=== PATIENT | male | born 1945 | race Caucasian/White ===

== ENCOUNTER 2016-10-13 11:22 | Outpatient (CLI) | payer MEDICARE | END 2016-10-13 11:23 | disposition home or self-care (01) | DX: I51.7 Cardiomegaly (principal) ==

== ENCOUNTER 2017-03-05 08:00 | Outpatient (CLI) | payer MEDICARE ==
[2017-03-05 13:49] LABS: BASOPHILS # (AUTO) 0.1 10^3/uL (0.0-0.1); BASOPHILS % (AUTO) 0.7 %; EOSINOPHILS # (AUTO) 0.2 10^3/uL (0.0-0.7); EOSINOPHILS % (AUTO) 2.8 %; HCT - HEMATOCRIT 38.8 % (42.0-52.0); HGB - HEMOGLOBIN 12.6 g/dL (14.0-18.0); LYMPHOCYTES # (AUTO) 1.6 10^3/uL (1.5-3.5); LYMPHOCYTES % (AUTO) 19.3 %; MEAN CORPUSCULAR HEMOGLOBIN 28.8 pg (27.0-31.0); MEAN CORPUSCULAR HGB CONC 32.5 g/dL (32.0-36.0); MEAN CORPUSCULAR VOLUME 88.6 fL (80.0-94.0); MEAN PLATELET VOLUME 8.6 fL (7.4-11.4); MONOCYTES # (AUTO) 0.9 10^3/uL (0.0-1.0); MONOCYTES % (AUTO) 10.7 %; NEUTROPHILS # (AUTO) 5.3 10^3/uL (1.5-6.6); NEUTROPHILS % (AUTO) 66.5 %; RED BLOOD COUNT 4.39 10^6/uL (4.70-6.10); RED CELL DISTRIBUTION WIDTH 14.3 % (12.0-15.0)
[2017-03-05 14:31] LABS: BILIRUBIN,TOTAL 0.5 mg/dL (0.2-1.0); BUN - BLOOD UREA NITROGEN 15 mg/dL (6-20); CALCIUM 8.1 mg/dL (8.5-10.3); CARBON DIOXIDE - CO2 29 mmol/L (21-32); CHLORIDE 99 mmol/L (101-111); CHOL/HDL RATIO 3.4 (<5.0); CHOLESTEROL 161 mg/dL; CREATININE 1.3 mg/dL (0.6-1.2); GFR - MDRD 54 (>89); GLUCOSE 105 mg/dL (70-100); HDL CHOLESTEROL 48 mg/dL; POTASSIUM 3.7 mmol/L (3.5-5.0); SODIUM 137 mmol/L (135-145); TOTAL PROTEIN 7.7 g/dL (6.7-8.2); TRIGLYCERIDES 80 mg/dL; VLDL CHOLESTEROL 16 mg/dL
== END 2017-03-05 08:01 | disposition home or self-care (01) ==
LOC: LAB.N 08:00
PROVIDERS: ATTEND Family Medicine
DX: J44.9 Chronic obstructive pulmonary disease, unspecified (principal); E78.5 Hyperlipidemia, unspecified
CPT/HCPCS: 36415; 80053; 80061; 85025

== ENCOUNTER 2017-11-02 13:57 | Outpatient (CLI) | payer MEDICARE ==
[2017-11-02 12:46] LABS: BASOPHILS # (AUTO) 0.1 10^3/uL (0.0-0.1); BASOPHILS % (AUTO) 0.8 %; EOSINOPHILS # (AUTO) 0.2 10^3/uL (0.0-0.7); EOSINOPHILS % (AUTO) 2.1 %; HGB - HEMOGLOBIN 10.6 g/dL (14.0-18.0); LYMPHOCYTES # (AUTO) 2.2 10^3/uL (1.5-3.5); MEAN CORPUSCULAR HEMOGLOBIN 25.1 pg (27.0-31.0); MEAN CORPUSCULAR HGB CONC 31.4 g/dL (32.0-36.0); MEAN CORPUSCULAR VOLUME 79.9 fL (80.0-94.0); MEAN PLATELET VOLUME 7.9 fL (7.4-11.4); MONOCYTES # (AUTO) 0.8 10^3/uL (0.0-1.0); MONOCYTES % (AUTO) 9.5 %; NEUTROPHILS # (AUTO) 4.9 10^3/uL (1.5-6.6); NEUTROPHILS % (AUTO) 60.6 %; PLT - PLATELET COUNT 267 10^3/uL (130-450); RED BLOOD COUNT 4.21 10^6/uL (4.70-6.10); RED CELL DISTRIBUTION WIDTH 15.9 % (12.0-15.0); WHITE BLOOD COUNT 8.2 x10^3/uL (4.8-10.8)
[2017-11-02 13:35] LABS: ALBUMIN 3.6 g/dL (3.2-5.5); ALBUMIN/GLOBULIN RATIO 0.9 (1.0-2.2); ALKALINE PHOSPHATASE 79 IU/L (42-121); ALT ALANINE AMINOTRANSFERASE 15 IU/L (10-60); AST ASPARTATE AMINOTRANSFERASE 21 IU/L (10-42); BILIRUBIN,TOTAL 0.3 mg/dL (0.2-1.0); BUN - BLOOD UREA NITROGEN 20 mg/dL (6-20); CALCIUM 8.3 mg/dL (8.5-10.3); CARBON DIOXIDE - CO2 26 mmol/L (21-32); CHLORIDE 105 mmol/L (101-111); CHOL/HDL RATIO 3.7 (<5.0); CHOLESTEROL 146 mg/dL; CREATININE 1.4 mg/dL (0.6-1.2); GFR - MDRD 50 (>89); GLUCOSE 105 mg/dL (70-100); HDL CHOLESTEROL 39 mg/dL; LDL CHOLESTEROL,CALCULATED 84 mg/dL; LDL/HDL RATIO 2.2 (<3.6); SODIUM 138 mmol/L (135-145); TOTAL PROTEIN 7.5 g/dL (6.7-8.2); VLDL CHOLESTEROL 23 mg/dL
== END 2017-11-02 13:58 | disposition home or self-care (01) ==
LOC: LAB.N 13:57
PROVIDERS: ATTEND Family Medicine
DX: E78.5 Hyperlipidemia, unspecified (principal); I10 Essential (primary) hypertension
CPT/HCPCS: 36415; 80053; 80061; 83721; 85025

== ENCOUNTER 2017-11-04 14:30 | Outpatient (CLI) | payer MEDICARE ==
--- NOTE | 2017-11-05 10:47 | XRAY Report ---
THREE VIEW LEFT SHOULDER: 11/04/2017 CLINICAL INDICATION: Pain. FINDINGS: AP, oblique, scapular Y views of the left shoulder demonstrate mild osteoarthritis of the glenohumeral and acromioclavicular joints. An old, healed clavicle fracture is noted. No acute fracture or dislocation is seen. IMPRESSION: MILD OSTEOARTHRITIS. OLD, HEALED LEFT CLAVICLE FRACTURE. TD: 11/05/2017 10:46
== END 2017-11-04 14:31 | disposition home or self-care (01) ==
LOC: DI.N 14:30
PROVIDERS: ATTEND Family Medicine
DX: M19.012 Primary osteoarthritis, left shoulder (principal)

== ENCOUNTER 2017-11-11 08:00 | Outpatient (CLI) | payer MEDICARE ==
[2017-11-11 19:10] LABS: BASOPHILS # (AUTO) 0.1 10^3/uL (0.0-0.1); BASOPHILS % (AUTO) 0.7 %; EOSINOPHILS # (AUTO) 0.2 10^3/uL (0.0-0.7); EOSINOPHILS % (AUTO) 2.1 %; HGB - HEMOGLOBIN 10.4 g/dL (14.0-18.0); LYMPHOCYTES # (AUTO) 1.8 10^3/uL (1.5-3.5); LYMPHOCYTES % (AUTO) 20.9 %; MEAN CORPUSCULAR HEMOGLOBIN 24.5 pg (27.0-31.0); MEAN CORPUSCULAR HGB CONC 30.6 g/dL (32.0-36.0); MEAN CORPUSCULAR VOLUME 80.1 fL (80.0-94.0); MEAN PLATELET VOLUME 7.8 fL (7.4-11.4); MONOCYTES # (AUTO) 0.8 10^3/uL (0.0-1.0); NEUTROPHILS # (AUTO) 5.9 10^3/uL (1.5-6.6); NEUTROPHILS % (AUTO) 67.3 %; PLT - PLATELET COUNT 284 10^3/uL (130-450); RED BLOOD COUNT 4.25 10^6/uL (4.70-6.10); RED CELL DISTRIBUTION WIDTH 16.1 % (12.0-15.0); WHITE BLOOD COUNT 8.8 x10^3/uL (4.8-10.8)
[2017-11-11 19:27] LABS: ALBUMIN 3.5 g/dL (3.2-5.5); ALBUMIN/GLOBULIN RATIO 0.8 (1.0-2.2); BILIRUBIN,TOTAL 0.5 mg/dL (0.2-1.0); CALCIUM 8.5 mg/dL (8.5-10.3); CREATININE 1.4 mg/dL (0.6-1.2); TOTAL PROTEIN 7.7 g/dL (6.7-8.2)
== END 2017-11-11 08:01 | disposition home or self-care (01) ==
LOC: LAB.N 08:00
PROVIDERS: ATTEND Family Medicine
DX: R60.0 Localized edema (principal); J44.9 Chronic obstructive pulmonary disease, unspecified
CPT/HCPCS: 36415; 80053; 83880; 85025

== ENCOUNTER 2017-11-11 10:00 | Outpatient (CLI) | payer MEDICARE | END 2017-11-11 10:15 | disposition home or self-care (01) | LOC: RT.N 10:00 | PROVIDERS: ATTEND Family Medicine | DX: R60.0 Localized edema (principal); J44.9 Chronic obstructive pulmonary disease, unspecified | CPT/HCPCS: 93005 ==

== ENCOUNTER 2017-11-18 11:51 | Outpatient (CLI) | payer MEDICARE ==
--- NOTE | 2017-11-18 17:12 | XRAY Report ---
TWO VIEW CHEST: 11/18/2017 CLINICAL INDICATION: COPD. COMPARISON: 10/13/2016 FINDINGS: Frontal and lateral views of the chest demonstrate an enlarged cardiac silhouette. The lungs remain hyperinflated, with basilar fibrosis. No new infiltrate, effusion, or pneumothorax is appreciated. IMPRESSION: CARDIOMEGALY. HYPERINFLATION. NO EVIDENCE OF ACUTE CARDIOPULMONARY DISEASE. TD: 11/18/2017 17:11
== END 2017-11-18 11:52 | disposition home or self-care (01) ==
LOC: DI.N 11:51
PROVIDERS: ATTEND Family Medicine
DX: J44.9 Chronic obstructive pulmonary disease, unspecified (principal); R60.0 Localized edema; I51.7 Cardiomegaly
CPT/HCPCS: 71046

== ENCOUNTER 2017-11-18 18:33 | Outpatient (CLI) | payer MEDICARE ==
--- NOTE | 2017-11-18 22:18 | Ultrasound Report ---
EXAM: BILATERAL LOWER EXTREMITY VENOUS ULTRASOUND EXAM DATE: 11/18/2017 07:49 PM. CLINICAL HISTORY: DEPENDENT EDEMA LEGS, BILATERAL. COMPARISON: None. TECHNIQUE: Real-time sonographic vascular imaging was performed by the cordage sales representative through the lower extremities utilizing both color-flow and Doppler spectral analysis. Multiple healthcare representative static i mages were saved for review. FINDINGS: Right: Common Femoral Vein (CFV): Normal. CFV-GSV Junction: Normal. Profunda Femoral Vein (PFV): Normal. Femoral Vein (FV) Prox: Normal. Femoral Vein (FV) Mid: Not well seen, but grossly negative. Femoral Vein (FV) Dist: Not well seen, but grossly negative. Popliteal Vein: Not well seen, but grossly negative. Posterior Tibial Veins: Not well seen, but grossly negative. Peroneal Veins: Not seen. Left: Common Femoral Vein (CFV): Normal. CFV-GSV Junction: Normal. Profunda Femoral Vein (PFV): Normal. Femoral Vein (FV) Prox: Normal. Femoral Vein (FV) Mid: Not well seen, but grossly negative. Femoral Vein (FV) Dist: Not well seen, but grossly negative. Popliteal Vein: Not well seen, but grossly negative. Posterior Tibial Veins: Not well seen, but grossly negative. Peroneal Veins: Not seen. Other: Bilateral lower extremity superficial edema. IMPRESSION: Edema. No definite evidence of DVT at this time. [facility] Referring Provider Line: [phone] SITE ID: [id number]
== END 2017-11-18 18:34 | disposition home or self-care (01) ==
LOC: DI 18:33
PROVIDERS: ATTEND Family Medicine
DX: R60.0 Localized edema (principal); J44.9 Chronic obstructive pulmonary disease, unspecified; I51.7 Cardiomegaly
CPT/HCPCS: 71046; 93970

== ENCOUNTER 2018-05-19 08:00 | Outpatient (CLI) | payer MEDICARE ==
[2018-05-19 19:03] LABS: CALCIUM 8.4 mg/dL (8.5-10.3); CREATININE 1.3 mg/dL (0.6-1.2)
== END 2018-05-19 08:01 | disposition home or self-care (01) ==
LOC: LAB.N 08:00
PROVIDERS: ATTEND Family Medicine
DX: R60.0 Localized edema (principal)
CPT/HCPCS: 36415; 80048

== ENCOUNTER 2018-09-09 10:50 | Outpatient (CLI) | payer MEDICARE ==
[2018-09-09] MEDS ORDERED: PERFLUTREN LIPID MICROSPHERES 1.65 MG/1.5 ML VIAL IVP ONE (12:36)
== END 2018-09-09 10:51 | disposition home or self-care (01) ==
LOC: DI 10:50
PROVIDERS: ATTEND Family Medicine
DX: J44.9 Chronic obstructive pulmonary disease, unspecified (principal); R06.09 Other forms of dyspnea; I51.7 Cardiomegaly
CPT/HCPCS: C8929; Q9957; 93306

== ENCOUNTER 2018-09-10 12:43 | Outpatient (CLI) | payer MEDICARE ==
--- NOTE | 2018-09-12 16:46 | CT Report ---
Reason: DYSPNEA ON EXERTION,COPD Procedure Date: 09/10/2018 Accession Number: [id number] / [id number] Procedure: CT - Chest W/O CPT Code: FULL RESULT: EXAM: CT CHEST EXAM DATE: 09/10/2018 01:08 PM. CLINICAL HISTORY: DYSPNEA ON EXERTION,COPD. COMPARISONS: 08/15/2013 CT TECHNIQUE: Routine helical CT imaging was performed through the chest. IV contrast: None. Reconstructions: Coronal and sagittal. In accordance with CT protocol optimization, one or more of the following dose reduction techniques were utilized for this exam: automated exposure control, adjustment of mA and/or KV based on patient size, or use of iterative reconstructive technique. FINDINGS: Lungs/Pleura: Minor emphysematous changes as before. Bibasilar scar/atelectasis again noted. No nodules, bronchial thickening, consolidation, or edema. Pulmonary vasculature is normal. No pericardial effusion. No pneumothorax. Minimal posterior basilar pleural thickening. Mediastinum: Enlarged right lobe of the thyroid measures at least 7.3 cm in maximum axial dimension; deviates trachea to the left.. No adenopathy or masses. Mild cardiomegaly Bones: Degenerative change in the spine. Visualized Abdomen: Included portions of the upper abdomen are unremarkable. Anterior abdominal wall hernia not excluded. Other: None. IMPRESSION: No acute findings chest CT. Chronic changes including bibasilar atelectasis/scar, posterior pleural thickening, and minor emphysematous changes as before. Enlarged right lobe of the thyroid with tracheal deviation to the left stable or minimally increased. [facility]
== END 2018-09-10 12:44 | disposition home or self-care (01) ==
LOC: DI 12:43
PROVIDERS: ATTEND Family Medicine
DX: J44.9 Chronic obstructive pulmonary disease, unspecified (principal)
CPT/HCPCS: 71250

== ENCOUNTER 2018-11-09 12:48 | Outpatient (CLI) | payer MEDICARE | END 2018-11-09 12:49 | disposition home or self-care (01) | LOC: SC 12:48 | PROVIDERS: ATTEND Nurse Practitioner Family | DX: G47.33 Obstructive sleep apnea (adult) (pediatric) (principal) | CPT/HCPCS: 99215; G0463; 99212 ==

== ENCOUNTER 2018-11-11 12:42 | Outpatient (CLI) | payer MEDICARE ==
[~2018-11-11 12:42] MED LIST: ALBUTEROL NEB 2.5 MG/3 ML INH ONE
[2018-11-11] MEDS ORDERED: ALBUTEROL NEB 2.5 MG/3 ML INH ONE (13:00)
== END 2018-11-11 12:43 | disposition home or self-care (01) ==
LOC: RT 12:42
PROVIDERS: ATTEND Family Medicine
DX: J44.9 Chronic obstructive pulmonary disease, unspecified (principal)
CPT/HCPCS: 94060; 94729

== ENCOUNTER 2019-04-20 09:47 | Outpatient (CLI) | payer MEDICARE ==
[2019-04-20 13:58] LABS: CREATININE 1.9 mg/dL (0.6-1.2)
== END 2019-04-20 23:59 ==
LOC: LAB.N 09:47
PROVIDERS: ATTEND Internal Medicine
DX: I50.812 Chronic right heart failure (principal)
CPT/HCPCS: 36415; 80048; 83880

== ENCOUNTER 2019-04-22 13:17 | Outpatient (CLI) | payer MEDICARE | END 2019-04-22 13:18 | disposition critical access hospital (66) | LOC: EMS 13:17 | PROVIDERS: ATTEND Surgery | DX: R06.02 Shortness of breath (principal) | CPT/HCPCS: A0425; A0427 ==

== ENCOUNTER 2019-04-22 13:34 | Inpatient (IN) | payer MEDICARE ==
--- NOTE | 2019-04-22 13:44 | ED Physician Documentation ---
PD HPI DYSPNEA - Stated complaint Stated Complaint: SOA - History obtained from History obtained from: Patient, Family (), EMS - History of Present Illness Timing - onset: Other (74-year-old gentleman with COPD. He says he has had no heart problems but his last history and physical mentions a history of atrial fibrillation, NH and stents. He has been having a decline over the last couple of months with increased shortness of breath and orthopnea which was acutely worse today. His usual oxygen at home is 2 L and he is been increasing it lately. He feels weak and short of breath and but can barely move because of it. Received a DuoNeb in route with some improvement. He was noted to be hypotensive for paramedics, 80 over palp. His says his legs are not any more swollen than normal.) Review of Systems Ten Systems: 10 systems reviewed and negative Constitutional: reports: Fatigue. denies: Fever, Chills Cardiac: denies: Chest pain / pressure, Palpitations, Pedal edema, Calf pain Respiratory: reports: Dyspnea, Cough PD PAST MEDICAL HISTORY - Past Medical History Cardiovascular: Hypertension, Atrial fibrillation Respiratory: COPD Endocrine/Autoimmune: None GI: None : None HEENT: None Psych: None Musculoskeletal: Osteoarthritis Derm: None - Past Surgical History Past Surgical History: Yes General: Appendectomy Ortho: Knee replacement HEENT: Cataracts, Tonsil/Adenoidectomy - Present Medications Home Medications: Ambulatory Orders Medication Instructions Recorded Confirmed Albuterol [Ventolin Hfa] 2 puffs INH Q4H PRN 03/06/13 12/05/15 Hydrocodone/Acetaminophen [Vicodin 1 each PO Q6HR PRN 03/06/13 12/05/15 Hp 10-300 mg Tablet] Losartan [Cozaar] 50 mg PO DAILY 03/06/13 12/05/15 Omeprazole 40 mg PO DAILY 03/06/13 12/05/15 Pravastatin Sodium 40 mg PO HS 03/06/13 12/05/15 Zolpidem [Ambien] 10 mg PO HS 03/06/13 12/05/15 Ipratropium Valders 0.02 inhaler NEB QID 05/12/13 12/05/15 Aspirin [Aspir-Shannen] 325 mg PO DAILY 01/17/14 12/05/15 Fluticasone/Salmeterol 250/50 1 mcg INH BID 01/17/14 12/05/15 [Advair 250 Mcg/50 Mcg] Ferrous Gluconate 324 mg DAILY 01/18/14 12/05/15 diltiaZEM CD [Cardizem Cd] 240 mg DAILY 01/18/14 12/05/15 - Allergies Allergies/Adverse Reactions: Allergies Allergy/AdvReac Type Severity Reaction Status Date / Time ranitidine HCl * Allergy Unknown Rash Verified 04/22/19 13:45 [From Zantac] - Social History Does the pt smoke?: No Smoking Status: Former smoker Does the pt drink ETOH?: No Does the pt have substance abuse?: No - Immunizations Immunizations are current?: Yes - POLST Patient has POLST: No PD ED PE NORMAL - Vitals Vital signs reviewed: Yes - General General: Alert and oriented X 3, Other (He appears breathless, despite being on oxygen his saturations dropped to the low 80s just from moving from the EMS gurney to the bed.) - HEENT HEENT: PERRL, EOMI - Neck Neck: Supple, no meningeal sign, No bony TTP - Cardiac Cardiac: RRR, No murmur - Respiratory Respiratory: Other (Labored breathing, diminished, but grossly clear, somewhat limited by body habitus.) - Abdomen Abdomen: Non tender - Rectal Rectal: Other (brown guaiac neg stool) - Derm Derm: Other (Diffuse ichthyosis) - Extremities Extremities: Other (Venous stasis changes and mild pedal edema, symmetric) - Neuro Neuro: Alert and oriented X 3, Normal speech Results - Vitals Vitals: Vital Signs - 24 hr 04/22/19 04/22/19 04/22/19 13:43 14:00 14:15 Temperature 36.4 C L 36.5 C Heart Rate 104 H 83 83 Respiratory 28 H 22 Rate Blood Pressure 124/86 H O2 Saturation 100 100 04/22/19 04/22/19 04/22/19 14:30 14:37 14:57 Temperature Heart Rate 82 84 Respiratory 20 Rate Blood Pressure 121/39 L 114/45 L O2 Saturation 93 04/22/19 04/22/19 04/22/19 15:00 15:03 15:33 Temperature Heart Rate 84 80 Respiratory 22 Rate Blood Pressure 114/45 L 132/69 H O2 Saturation 100 04/22/19 16:05 Temperature Heart Rate 88 Respiratory 16 Rate Blood Pressure 157/71 H O2 Saturation 100 Oxygen O2 Source Nasal cannula Oxygen Flow Rate 2 - EKG (time done) 1427 Rate: Rate (enter#) (80) Rhythm: NSR Birney: Normal Intervals: Other (IVCD) QRS: Normal Ischemia: Non specific changes (Trace lateral ST depression). No: ST elevation c/w ischemia Computer interpretation: Agree with computer - Labs Labs: Laboratory Tests 04/22/19 04/22/19 04/22/19 13:50 13:50 13:50 WBC RBC Hgb Hct MCV MCH MCHC RDW Plt Count MPV Neut # (Auto) Lymph # (Auto) [place] # (Auto) Eos # (Auto) Baso # (Auto) Absolute Nucleated RBC Nucleated RBC % Manual Slide Review Platelet Estimate Platelet Morphology RBC Morph Micro Appear VBG pH VBG pCO2 VBG pO2 VBG HCO3 VBG Total CO2 VBG O2 Saturation VBG Base Excess Sodium 139 Potassium 3.3 L Chloride 99 L Carbon Dioxide 28 Anion Gap 12.0 BUN 34 H Creatinine 1.9 H Estimated GFR (MDRD) 35 L Glucose 188 H Lactic Acid Calcium 7.9 L Magnesium 2.3 Total Bilirubin 0.4 AST 19 ALT 13 Alkaline Phosphatase 90 Troponin I High Sens < 2.3 L B-Natriuretic Peptide 222 H Total Protein 7.4 Albumin 3.4 Globulin 4.0 Albumin/Globulin Ratio 0.9 L Lipase 25 04/22/19 04/22/19 04/22/19 13:50 13:50 15:10 WBC 9.3 RBC 1.64 L Hgb 2.7 L* Hct 11.6 L* MCV 70.7 L MCH 16.5 L MCHC 23.3 L RDW 25.9 H Plt Count 50 L MPV 8.9 Neut # (Auto) 7.9 H Lymph # (Auto) 0.9 L [place] # (Auto) 0.3 Eos # (Auto) 0.2 Baso # (Auto) 0.0 Absolute Nucleated RBC 0.00 Nucleated RBC % 0.0 Manual Slide Review Indicated Platelet Estimate DECREASED (<130,000) Platelet Morphology NORMAL APPEARANCE RBC Morph Micro Appear 2+ MICROCYTOSIS VBG pH 7.382 VBG pCO2 47.0 VBG pO2 82.9 H VBG HCO3 27.3 VBG Total CO2 28.7 VBG O2 Saturation 95.5 H VBG Base Excess 2.2 H Sodium Potassium Chloride Carbon Dioxide Anion Gap BUN Creatinine Estimated GFR (MDRD) Glucose Lactic Acid 3.8 H* Calcium Magnesium Total Bilirubin AST ALT Alkaline Phosphatase Troponin I High Sens B-Natriuretic Peptide Total Protein Albumin Globulin Albumin/Globulin Ratio Lipase PD MEDICAL DECISION MAKING - ED course ED course: 74-year-old gentleman presents with severe shortness of breath. He has underlying COPD but his lungs are relatively clear. He looks very labored when he moves at all. PE is considered given some soft blood pressures, however grossly to me his PET scan was negative and this is likely due to his severe profound anemia. Note that he is guaiac negative. Underlying MALIGNANCY is considered. Spoke with Dr. Grimes for admission at 4:51 PM. Departure - Departure Disposition: 66 [facility] DC/Xfpablito Clinical Impression: Dyspnea Qualifiers: Dyspnea type: shortness of breath Qualified Code(s): R06.02 - Shortness of breath Anemia Qualifiers: Anemia type: unspecified type Qualified Code(s): D64.9 - Anemia, unspecified Condition: Serious
[2019-04-22 14:11] LABS: VBG BASE EXCESS 2.2 mmol/L (-2 - +2); VBG PH 7.382 (7.31-7.41); VBG PO2 82.9 mmHg (25-47); VBG TOTAL CO2 28.7 mmol/L (24-29)
[2019-04-22] MEDS ORDERED: IOVERSOL 320 100 ML VIAL IVP ONE ×2 (14:15→16:08)
[2019-04-22 14:24] LABS: ALBUMIN 3.4 g/dL (3.2-5.5); ALBUMIN/GLOBULIN RATIO 0.9 (1.0-2.2); BILIRUBIN,TOTAL 0.4 mg/dL (0.2-1.0); CALCIUM 7.9 mg/dL (8.5-10.3); CREATININE 1.9 mg/dL (0.6-1.2); MAGNESIUM 2.3 mg/dL (1.7-2.8); TOTAL PROTEIN 7.4 g/dL (6.7-8.2)
[2019-04-22] MEDS ORDERED: SODIUM CHLORIDE 0.9% 500 ML IV ONE ×2 (14:27→14:49)
--- NOTE | 2019-04-22 14:36 | XRAY Report ---
Reason: dyspnea Procedure Date: 04/22/2019 Accession Number: [id number] / [id number] Procedure: XR - Chest 1 View X-Ray CPT Code: 92672 FULL RESULT: EXAM: CHEST RADIOGRAPHY EXAM DATE: 04/22/2019 02:16 PM. CLINICAL HISTORY: Dyspnea. COMPARISON: CHEST 2 VIEW 11/18/2017 12:09 PM. TECHNIQUE: 1 view. FINDINGS: Lungs/Pleura: Mild chronic appearing pulmonary edema and trace bilateral pleural effusions. No focal opacities evident. No pneumothorax. Mediastinum: Within exam limitations, the cardiomediastinal contour is normal. Other: None. IMPRESSION: Mild chronic appearing pulmonary edema and trace bilateral pleural effusions. Stable moderate cardiac enlargement. [facility]
[2019-04-22 15:19] LABS: BASOPHILS % (AUTO) 0.1 %; EOSINOPHILS # (AUTO) 0.2 10^3/uL (0.0-0.7); LYMPHOCYTES # (AUTO) 0.9 10^3/uL (1.5-3.5); MEAN CORPUSCULAR HEMOGLOBIN 16.5 pg (27.0-31.0); MEAN CORPUSCULAR HGB CONC 23.3 g/dL (32.0-36.0); MEAN CORPUSCULAR VOLUME 70.7 fL (80.0-94.0); MEAN PLATELET VOLUME 8.9 fL (7.4-11.4); MONOCYTES # (AUTO) 0.3 10^3/uL (0.0-1.0); NEUTROPHILS # (AUTO) 7.9 10^3/uL (1.5-6.6); NEUTROPHILS % (AUTO) 84.3 %; PLT - PLATELET COUNT 50 10^3/uL (130-450); RED BLOOD COUNT 1.64 10^6/uL (4.70-6.10); RED CELL DISTRIBUTION WIDTH 25.9 % (12.0-15.0); WHITE BLOOD COUNT 9.3 x10^3/uL (4.8-10.8)
[2019-04-22 15:21] LABS: HGB - HEMOGLOBIN 2.7 g/dL (14.0-18.0)
[2019-04-22 16:02] LABS: PLATELET ESTIMATE, MANUAL DECREASED (<130,000) (NORMAL); PLATELET MORPHOLOGY NORMAL APPEARANCE (NORMAL)
[2019-04-22] MEDS ORDERED: ACETAMINOPHEN 325 MG TABLET PO PRN (17:04)
[2019-04-22] MEDS ORDERED: POTASSIUM CHLORIDE 20 MEQ TABLET PO ONE (17:13)
--- NOTE | 2019-04-22 17:19 | CT Report ---
Reason: dyspnea Procedure Date: 04/22/2019 Accession Number: [id number] / [id number] Procedure: CT - ANGIO CHEST W/WO CPT Code: FULL RESULT: EXAM: CT ANGIOGRAM CHEST EXAM DATE: 04/22/2019 04:08 PM. CLINICAL HISTORY: Dyspnea. COMPARISON: CHEST W/O 09/10/2018 12:59 PM CHEST 1 VIEW 04/22/2019 1:58 PM CHEST ANGIO 08/15/2013 4:35 PM. TECHNIQUE: Routine helical imaging was performed through the chest in the pulmonary arterial phase. IV Contrast: OPTI 320 80ML. Reconstructions: Coronal 3-D MIP reconstructions.Sagittal and coronal. In accordance with CT protocol optimization, one or more of the following dose reduction techniques were utilized for this exam: automated exposure control, adjustment of mA and/or KV based on patient size, or use of iterative reconstructive technique. FINDINGS: Respiratory motion artifact moderately degrades images. Pulmonary Arteries: Diagnostic quality: Suboptimal through the segmental arteries due to contrast bolus timing. No definite evidence for acute or chronic pulmonary emboli through the segmental arteries. Lungs/Pleura: Mild centrilobular emphysema. Scattered bilateral air trapping and mild atelectasis. Moderate subsegmental atelectasis in bilateral lower lobes. Trace right pleural effusion. No pneumothorax.. Mediastinum: Mediastinal lipomatosis. Normal heart size. No pericardial effusion. Three-vessel coronary artery atherosclerosis. Thoracic Aorta: Mild atherosclerosis without aneurysm. Upper Abdomen: Mild atrophy of bilateral kidneys. Other: Right thyroid lobe mass measuring up to 70 x 41 mm, previously 58 x 39 mm on 08/15/2013. Stable associated leftward tracheal deviation. Mild bilateral gynecomastia. Mild dextrocurvature of the thoracic spine. Thoracic spine diffuse idiopathic skeletal hyperostosis. Healed anterior left fifth rib fracture. IMPRESSION: 1. No pulmonary embolus through the segmental pulmonary arteries allowing for suboptimal contrast bolus timing. 2. Moderate bilateral atelectasis. Trace right pleural effusion. Mild emphysema. 3. 7 cm right thyroid lobe mass, increased since 2012. Recommend further evaluation with nonemergent thyroid ultrasound. [facility]
--- NOTE | 2019-04-22 17:55 | HISTORY & PHYSICAL EXAMINATION ---
Chief Complaint - Chief Complaint Chief Complaint: Shortness of breath History of Present Illness - Admitted From Admitted From:: Home - History Obtained From Records Reviewed: Yes History obtained from: Patient, Family, ER Physician - History of Present Illness HPI Comment/Other: This is a 74 year old male with a past medical history significant for paroxysmal atrial fibrillation, hypertension, COPD (on 2.5L), CKD, and OMERO on CPAP who presents from home complaining of worsening shortness of breath over the past 2-3 weeks. He reports feeling short of breath over the last few weeks that has progressed daily and today he seeked medical attention. He does not report a cough but endorses subjective fevers and chills. He denies chest pain but reports fatigue, weakness, tremors that have all began over the last few days. He has also had poor appetite and believes that he may have lost some weight but he has difficulty checking his weight as he is unable to stand on a scale for a long enough of a time to obtain a weight. He reports that about 5-6 years he did have an episode where his hemoglobin low in the 4-5 range and he required multiple transfusions. He was told he was anemic at that time because of kidney failure. He did have a period of time where he had significant acute kidney injury and required hemodialysis for 6 weeks. He reports no recent bleeding. Denies tarry stools, hematuria, hemoptysis. He denies any new medications recently except for a diuretic. He had a colonoscopy and EGD about 6 years ago. Colonoscopy had one hyperplastic polyp and EGD was unremarkable. In the emergency department, he was hemoynaically stable with a blood pressure in the 120's-130's systolic, and heart rate in the 80's. He was saturating 100% on 2L NC. Labs were significant for a hemoglobin of 2.7, platelets of 50, creatinine of 1.9, and lactic of 3.8. Chest x-ray with mild vascular congestion. CTA of the chest was negative for PE although it was a not a great study due to suboptimal contrast timing. EKG showed sinus rhythm without ischemic changes. Troponin was negative. He will be admitted to the ICU for further management. I did speak with the patient and family regarding goals of care. He would like to be a full code at this time. History - Past Medical History Cardiovascular: reports: Hypertension, Atrial fibrillation Respiratory: reports: COPD, Sleep apnea, CPAP use Endocrine/Autoimmune: reports: None GI: reports: None : reports: Renal insuffiency HEENT: reports: None Psych: reports: None Musculoskeletal: reports: Osteoarthritis Derm: reports: None MRSA Hx?: No - Past Surgical History General: reports: Appendectomy Ortho: reports: Knee replacement HEENT: reports: Cataracts, Tonsil/Adenoidectomy - Family & Social History Family History Comment/Other: He reports no signifcant medical history. Denies a family history of bleeding or cancer. Living arrangement: At home Living Situation: With spouse/s.o. Social History Notes: He lives on [facility] with his . He previously lived in [place] but moved to [facility] to be closer to his son. He is retired now but worked with [employer] in the past. He was a previous smoker but quit multiple years ago. - Substance History Use: Uses substance without health or social issues: NONE - POLST Patient has POLST: No POLST Status: Full Code Meds/Allgy - Home Medications Home Medications: Ambulatory Orders Medication Instructions Recorded Confirmed Omeprazole 40 mg PO DAILY 03/06/13 04/22/19 Aspirin [Aspir-Shannen] 325 mg PO DAILY 01/17/14 04/22/19 Atorvastatin Calcium 40 mg PO QPM 04/22/19 04/22/19 Diltiazem HCl [Diltiazem ER] 180 mg PO DAILY 04/22/19 04/22/19 Fluticasone Propion/Salmeterol 1 each IH BID 04/22/19 04/22/19 [Fluticasone-Salmeterol 500-50] Gabapentin [Neurontin] 100 mg PO QPM 04/22/19 04/22/19 HYDROcod/ACETAM 5/325 [[place] 5/325] 1 - 2 ea PO Q4H PRN 04/22/19 04/22/19 Ipratropium/Albuterol [Duoneb] 3 ml INH Q6H 04/22/19 04/22/19 Losartan/Hydrochlorothiazide 1 each PO DAILY 04/22/19 04/22/19 [Losartan-Hctz 50-12.5 mg Tab] - Allergies Allergies/Adverse Reactions: Allergies Allergy/AdvReac Type Severity Reaction Status Date / Time ranitidine HCl * Allergy Unknown Rash Verified 04/22/19 13:45 [From Zantac] Review of Systems - Constitutional Constitutional: reports: Fatigue, Fever, Chills, Weakness, Poor appetite, Night sweats, Weight loss - Ears, Nose & Throat Ears, Nose & Throat: denies: Nosebleeds - Cardiovascular Cariovascular: reports: Edema, Exertional dyspnea, Decr. exercise tolerance. denies: Chest pain - Respiratory Respiratory: reports: SOB at rest, SOB with exertion. denies: Hemoptysis - Gastrointestinal Gastrointestinal: reports: Constipation, Poor appetite. denies: Abdominal pain, Diarrhea, Black stools, Bloody stools, Nausea, Vomiting - Genitourinary Genitourinary: denies: Hematuria - Musculoskeletal Musculoskeletal: reports: Muscle weakness - Integumentary Integumentary: denies: Rash - Neurological Neurological: reports: General weakness, Numbness. denies: Focal weakness - Hematologic/Lymphatic Hematologic/Lymphatic: denies: Anemia, Bruising, Bleeding tendencies - All Other Systems All Other Systems: reports: Reviewed and negative Prior Level of Functionality: He ambulates with a scooter at baseline. Exam - Vital Signs Reviewed Vital Signs: Yes Vital Signs: Vital Signs x48h Temp Pulse Resp BP Pulse Ox 04/22/19 16:30 90 20 157/71 H 100 04/22/19 16:05 88 16 157/71 H 100 04/22/19 15:33 80 04/22/19 15:03 132/69 H 04/22/19 15:00 84 22 114/45 L 100 04/22/19 14:57 84 04/22/19 14:37 114/45 L 04/22/19 14:30 82 20 121/39 L 93 04/22/19 14:15 36.5 C 83 22 100 04/22/19 14:00 83 04/22/19 13:43 36.4 C L 104 H 28 H 124/86 H 100 - Physical Exam General Appearance: positive: Alert, Mild distress Eyes Bilateral: positive: No scleral icterus, Other (Conjuctival pallor) ENT: positive: ENT inspection nml, No signs of dehydration, Other (Nasal cannula in place.). negative: Pharyngeal erythema, Dry mucous membranes Neck: positive: Nml inspection Respiratory: positive: No respiratory distress, Other (Diminished breath sounds bilaterally. Tachypnic.) Cardiovascular: positive: Regular rate & rhythm, No murmur. negative: Tachycardia, Bradycardia, Systolic murmur Abdomen: positive: Non-tender, Other (Distended). negative: No distention, Tenderness, Guarding, Rebound Skin: positive: No rash, Warm, Dry, Pallor, Other (Chronic skin changes of the lower extremities.) Extremities: positive: Pedal edema (+1 pitting edema in bilateral low extremities up to the knee.) Neurologic/Psychiatric: positive: Oriented x3 Conclusion/Plan - Problem List (1) Anemia Conclusion/Plan: He has significant anemia of unclear etiology at this time. Presented with a hemoglobin of 2.7 and given his hemodynamic stability, MCV of 70 this appears to be chronic in nature. He also has associated thrombocytopenia but no leukopenia. This is concerning for a possible bone marrow failure or underlying malignancy. No signs of active bleeding at this time. Stool occult reportedly negative in the ER. LFT's are normal so low suspicion for hemolysis. - Type and screen. Will transfuse three units PRBC and check another CBC before further transfusions. - Check iron studies, LDH and retic count prior to transfusion - Recheck fecal occult stool, if positive will require Gen Surg consult for EGD/Colonoscopy - Will likely need outpatient hematology follow up Qualifiers: Anemia type: unspecified type Qualified Code(s): D64.9 - Anemia, unspecified (2) Thrombocytopenia Conclusion/Plan: He has thrombocytopenia with a platelet count of 50. Suspect that the etiology is bone marrow failure or underlying malignancy. No signs of bleeding at this time. - Hold chemical DVT prophylaxis - No indication for transfusion at this time unless he develops significant clinical bleeding - Will likely require outpatient Hematology follow up (3) Acute kidney injury superimposed on CKD Conclusion/Plan: He has history of CKD. Labs from last year reveal a baseline of about 1.4. Current creatinine is 1.9 which may be progression of his CKD or mild acute kidney injury secondary to his severe anemia. He has a remote history of acute kidney injury requiring hemodialysis for 6 weeks but this was multiple years ago. - Hold home Losartan in setting of MALGORZATA - Renal function should improve with transfusion of RBC's if this is acute kidney - Monitor renal function and urine output (4) Lactic acidosis Conclusion/Plan: His lactic is elevated at 3.8 this is likely secondary to his severe anemia. - This should improve with transfusion of RBC's - Recheck every 4 hours until normalization (5) Chronic respiratory failure with hypoxia Conclusion/Plan: He has chronic respiratory failure secondary to COPD. He is on 2L oxygen at baseline. Stable. - Continue supplemental oxygen - Monitor respiratory status as he receives transfusions as he may require intermittent diuresis (6) Paroxysmal atrial fibrillation Conclusion/Plan: He paroxysmal atrial fibrillation and is on cardizem and aspirin at home. Currently in a sinus rhythm. EKG without ischemic changes and troponin is negative. - Hold Cardizem given his blood pressure is stable at this time - Hold Aspirin due to thrombocytopenia - Monitor on telemetry (7) Hypertension Conclusion/Plan: He is on Losartan/HCTZ and Cardizem at home. Controlled at this time. - Will hold home antihypertensives at this time given his anemia and risk for potentially bleeding and hemodynamic decompensation - Will likely restart in the AM - Lab Results Lab results reviewed: Yes Nestor Bones: 04/22/19 15:10 04/22/19 13:50 - Diagnostic Imaging Results Diagnostic Imaging Results: positive: Final report reviewed - EKG Results EKG Interpreted Independently: Yes EKG Findings: Sinus rhythm without ischemic changes. Core Measures - Anticipated LOS I expect patient to be DC'd or transferred within 96 hours.: Yes - Issues Hospital Issues and Management Plan: Anemia requiring multiple blood transfusions. - DVT/VTE - Prophylaxis VTE/DVT Device ordered at admit?: Yes VTE/DVT Prophylaxis med ordered at admit?: No Not Ordered - Medical Reason: Contraindicated (Thrombocytopenia)
[2019-04-22 18:09] LABS: INR 1.2 (0.8-1.2)
[2019-04-22 18:59] LABS: % IRON SATURATION 4 % (20-50); IRON 22 ug/dL (45-182); TOTAL IRON BINDING CAPACITY 529 ug/dL (250-450); TRANSFERRIN 378 mg/dL (180-329)
[2019-04-22 20:16] LABS: ABSOLUTE RETICS # AUTO 0.051 10^6/uL (0.020-0.110); RED BLOOD COUNT 1.68 10^6/uL (4.70-6.10)
[2019-04-22] MEDS ORDERED: LEVALBUTEROL 1.25 MG/3 ML NEB INH PRN (20:24)
[2019-04-22] MEDS: PANTOPRAZOLE 40 MG VIAL IVP SCH (20:24)
[2019-04-22] MEDS: SODIUM CHLORIDE FLUSH 0.9% 10 ML SYRINGE IVP SCH (20:24)
[2019-04-22 21:19] LABS: BILIRUBIN,URINE NEGATIVE (NEGATIVE); GLUCOSE, URINE (UA) NEGATIVE (NEGATIVE); KETONES,URINE (UA) NEGATIVE (NEGATIVE); LEUKOCYTE ESTERASE, URINE NEGATIVE (NEGATIVE); NITRITE,URINE NEGATIVE (NEGATIVE); OCCULT BLOOD,URINE NEGATIVE (NEGATIVE); PROTEIN,URINE NEGATIVE (NEGATIVE); UROBILINOGEN,URINE 0.2 (NORMAL) E.U./dL (NORMAL)
[2019-04-22 21:20] LABS: CLARITY,URINE CLEAR (CLEAR)
[2019-04-22] MEDS ORDERED: BUDESONIDE 0.5 MG/2 ML NEB INH STA (22:09)
--- NOTE | 2019-04-22 22:26 | ANESTHESIA PROCEDURE NOTE ---
Diagnosis: Severe anemia, poor vascular access Procedure: Placement of femoral vein line Consent for Procedure(s) Verified and Reviewed: Yes Height and Weight: Height 5 ft 7 in Weight (kg) 161.025 kg Body Mass Index 55.5 Vital Signs: Temp Pulse Resp BP Pulse Ox 36.5 C 99 22 125/99 H 96 04/22/19 22:00 04/22/19 22:00 04/22/19 22:00 04/22/19 22:00 04/22/19 22:00 Allergies ranitidine HCl * [From Zantac] Allergy (Unknown, Verified 04/22/19 13:45) Rash Requesting Provider: Kenney Location: ICU [address]. Monitoring and Equipment: Non-invasive BP, Pulse oximetery, Central venous catheter, All ports aspirate blood, Sterile prep and drape Anes. Procedure Start Time: 18:00 Anes. Procedure Stop Time: 20:05 Procedure Notes: Consulted to obtain venous access on a patient with history of poor vascular access and severe anemia/thrombocytopenia. First attempted placing basilic vein IV catheter using ultrasound on both upper extremities. The veins were small and deep and I was unable to access either veins. After speaking with the hospitalist, it was decided the best option was to place a femoral vein catheter. Initially, the right side was attempted and the vein was accessed, however, I was unable to advance the catheter. The wire was removed and pressure held until hemostasis obtained. The patient's left groin was prepped with chloroprep and draped in a sterile fashion. Time-out completed. Sterile gown, gloves, hat and mask were utilized. A total of 5ml of 1% lidocaine was used to anesthetize the skin area. The common femoral vein was imaged using ultrasound and a modified seldinger technique was used to access the vein under ultrasound guidance. A 20cm triple lumen catheter was inserted over the wire with ease and sutured in place with zero cm exposed. All ports aspirated heme and flushed with ease. All wires removed and accounted for. A sterile dressing with biopatch was applied. Patient tolerated the procedure well. Anesth Central Line Template - Central Line Central Line Preparation: Consent Obtained, Time out completed, Ultrasound used, Sterile prep and drape Central line location: Left Femoral Central line type: Triple lumen Central line catheter tip site resides: Unspecified lower vein access Central line aftercare: Chlorhexidine disc placed, Secured, No complications, Pt tolerated well
[2019-04-23] MEDS: GABAPENTIN 100 MG CAPSULE PO SCH ×2 (00:07→21:09)
[2019-04-23 03:58] LABS: BASOPHILS % (AUTO) 0.1 %; LYMPHOCYTES # (AUTO) 0.6 10^3/uL (1.5-3.5); LYMPHOCYTES % (AUTO) 8.4 %; MEAN CORPUSCULAR HEMOGLOBIN 20.2 pg (27.0-31.0); MEAN CORPUSCULAR HGB CONC 26.6 g/dL (32.0-36.0); MEAN CORPUSCULAR VOLUME 76.1 fL (80.0-94.0); MONOCYTES # (AUTO) 0.1 10^3/uL (0.0-1.0); MONOCYTES % (AUTO) 0.7 %; NEUTROPHILS # (AUTO) 5.9 10^3/uL (1.5-6.6); NEUTROPHILS % (AUTO) 85.9 %; PLT - PLATELET COUNT 36 10^3/uL (130-450); RED BLOOD COUNT 1.88 10^6/uL (4.70-6.10); RED CELL DISTRIBUTION WIDTH 27.2 % (12.0-15.0); WHITE BLOOD COUNT 6.9 x10^3/uL (4.8-10.8)
[2019-04-23 04:06] LABS: HGB - HEMOGLOBIN 3.8 g/dL (14.0-18.0)
[2019-04-23 04:09] LABS: MAGNESIUM 2.3 mg/dL (1.7-2.8); PHOSPHORUS 3.6 mg/dL (2.5-4.6)
[2019-04-23] MEDS ORDERED: SODIUM CHLORIDE 0.9% 500 ML ONE (04:31)
[2019-04-23 04:32] LABS: PLATELET ESTIMATE, MANUAL DECREASED (<130,000) (NORMAL); PLATELET MORPHOLOGY NORMAL APPEARANCE (NORMAL)
[2019-04-23 05:52] LABS: CREATININE 1.8 mg/dL (0.6-1.2)
[2019-04-23] MEDS: SODIUM CHLORIDE FLUSH 0.9% 10 ML SYRINGE IVP SCH ×2 (06:37→17:16)
[2019-04-23] MEDS: PANTOPRAZOLE 40 MG VIAL IVP SCH (06:37)
[2019-04-23] MEDS: BUDESONIDE 0.5 MG/2 ML NEB INH SCH ×2 (07:14→19:46)
[2019-04-23] MEDS: IPRATROPIUM/ALBUTEROL 3 ML NEB INH PRN ×4 (07:14→19:46)
[2019-04-23] MEDS: INSULIN ASPART 300 UNIT/3 ML PEN SUBQ SCH ×4 (08:00→21:08)
--- NOTE | 2019-04-23 09:18 | PROVIDER PROGRESS NOTE ---
Subjective - Prog Note Date Prog Note Date: 04/23/19 Prog Note Time: 09:17 - Subjective Pt reports feeling: Improved Subjective: He reports feeling better this morning. He still has significant dyspnea with exertion and feels fatigued. Denies chest pain. He was transfused 3 units of PRBC overnight with only a mild improvement in his hemoglobin to 3.8 from 2.7. He continues to deny any signs of bleeding. A left femoral CVC was placed by anesthesia last night due to difficulty obtaining intravenous access. Current Medications - Current Medications Current Medications: Active Medications Acetaminophen (Tylenol) 650 mg PO Q4HR PRN PRN Reason: Pain 1 to 4 Albuterol/Ipratropium (Duoneb) 3 ml INH Q4HR PRN PRN Reason: Wheezing Last Admin: 04/23/19 07:14 Dose: 3 ml Budesonide (Pulmicort) 0.5 mg INH RTBID DINESH Last Admin: 04/23/19 07:14 Dose: 0.5 mg Gabapentin (Neurontin) 100 mg PO QPM [facility] Last Admin: 04/23/19 00:07 Dose: 100 mg Insulin Aspart (Novolog) 1 - 9 unit SUBQ 0800,1200,1700,2100 [facility]; Protocol Last Admin: 04/23/19 08:00 Dose: 3 unit Pantoprazole Sodium (Protonix) 40 mg IVP QDAC DINESH Last Admin: 04/23/19 06:37 Dose: 40 mg Sodium Chloride (Normal Saline Flush 0.9%) 10 ml IVP 0100,0900,1700 [facility] Last Admin: 04/23/19 06:37 Dose: 10 ml Sodium Chloride (Normal Saline Flush 0.9%) 10 ml IVP PRN PRN PRN Reason: NEEDED PER PROVIDER ORDERS Omeprazole 40 mg PO DAILY 03/06/13 Aspirin [Aspir-Shannen] 325 mg PO DAILY 01/17/14 Atorvastatin Calcium 40 mg PO QPM 04/22/19 Diltiazem HCl [Diltiazem ER] 180 mg PO DAILY 04/22/19 Fluticasone Propion/Salmeterol [Fluticasone-Salmeterol 500-50] 1 each IH BID 04/22/19 Gabapentin [Neurontin] 100 mg PO QPM 04/22/19 HYDROcod/ACETAM 5/325 [Dexter 5/325] 1 - 2 ea PO Q4H PRN 04/22/19 Ipratropium/Albuterol [Duoneb] 3 ml INH Q6H 04/22/19 Losartan/Hydrochlorothiazide [Losartan-Hctz 50-12.5 mg Tab] 1 each PO DAILY 04/22/19 Objective - Vital Signs/Intake & Output Reviewed Vital Signs: Yes Vital Signs: Vital Signs Temp Pulse Pulse Resp BP BP Pulse Ox 04/23/19 09:00 133 H 29 H 217/127 H 99 04/23/19 08:00 37.6 C H 95 19 176/85 H 100 04/23/19 07:45 36.8 C 93 19 176/85 H 04/23/19 07:28 36.2 C L 85 23 148/73 H 04/23/19 07:21 36.4 C L 88 20 137/72 H 04/23/19 07:18 90 18 04/23/19 07:00 79 15 174/92 H 100 04/23/19 06:00 83 18 151/84 H 97 Intake & Output: Intake & Output 04/20/19 04/21/19 04/22/19 04/23/19 23:59 23:59 23:59 23:59 Intake Total 2030 1801 Output Total 700 1050 Balance 1330 751 - Objective General Appearance: positive: No acute distress, Alert Eyes Bilateral: positive: No scleral icterus, Other (Conjuctival pallor) ENT: positive: ENT inspection nml Neck: positive: Nml inspection Respiratory: positive: No respiratory distress, Other (Diminished breath sounds) Cardiovascular: positive: Regular rate & rhythm, No murmur. negative: Tachycardia, Bradycardia Abdomen: positive: Non-tender, Nml bowel sounds, No distention. negative: Tenderness Skin: positive: No rash, Warm, Other (Chronic skin changes over the lower extremities) Extremities: positive: Pedal edema (+1 pitting edema in the bilateral lower extremities up to the knee) Neurologic/Psychiatric: positive: Oriented x3. negative: Disoriented to person, Disoriented to place, Disoriented to time - Lab Results Fish Bones: 04/23/19 11:00 04/23/19 03:30 Other Labs: Lab Results x24hrs 04/23/19 04/23/19 04/23/19 Range/Units 03:30 03:30 03:30 WBC 6.9 (4.8-10.8) x10^3/uL RBC 1.88 L (4.70-6.10) 10^6/uL Hgb 3.8 L* (14.0-18.0) g/dL Hct 14.3 L* (42.0-52.0) % MCV 76.1 L (80.0-94.0) fL MCH 20.2 L (27.0-31.0) pg MCHC 26.6 L (32.0-36.0) g/dL RDW 27.2 H (12.0-15.0) % Plt Count 36 L (130-450) 10^3/uL MPV 9.0 (7.4-11.4) fL Reticulocyte % (Auto) (0.5-2.3) % Neut # (Auto) 5.9 (1.5-6.6) 10^3/uL Lymph # (Auto) 0.6 L (1.5-3.5) 10^3/uL [place] # (Auto) 0.1 (0.0-1.0) 10^3/uL Eos # (Auto) 0.0 (0.0-0.7) 10^3/uL Baso # (Auto) 0.0 (0.0-0.1) 10^3/uL Absolute Nucleated RBC 0.05 x10^3/uL Nucleated RBC % 0.7 /100WBC Manual Slide Review Indicated WBC Morphology NORMAL APPEARANCE (NORMAL) Platelet Estimate DECREASED (<130,000) (NORMAL) Platelet Morphology NORMAL APPEARANCE (NORMAL) RBC Morph Micro Appear 2+ ANISOCYTOSIS (NORMAL) Absolute Retic (0.020-0.110) 10^6/uL PT (9.9-12.6) secs INR (0.8-1.2) VBG pH (7.31-7.41) VBG pCO2 (41-51) mmHg VBG pO2 (25-47) mmHg VBG HCO3 (23-28) mmol/L VBG Total CO2 (24-29) mmol/L VBG O2 Saturation (60-80) % VBG Base Excess (-2 - +2) mmol/L Sodium 139 (135-145) mmol/L Potassium 4.1 (3.5-5.0) mmol/L Chloride 102 (101-111) mmol/L Carbon Dioxide 29 (21-32) mmol/L Anion Gap 8.0 (6-13) BUN 35 H (6-20) mg/dL Creatinine 1.8 H (0.6-1.2) mg/dL Estimated GFR (MDRD) 37 L (>89) Glucose 210 H (70-100) mg/dL Lactic Acid (0.5-2.2) mmol/L Calcium 8.0 L (8.5-10.3) mg/dL Phosphorus 3.6 (2.5-4.6) mg/dL Magnesium 2.3 (1.7-2.8) mg/dL Iron (45-182) ug/dL TIBC (250-450) ug/dL % Saturation (20-50) % Transferrin (180-329) mg/dL Ferritin (23.9-336.2) ng/mL Total Bilirubin (0.2-1.0) mg/dL AST (10-42) IU/L ALT (10-60) IU/L Alkaline Phosphatase (42-121) IU/L Troponin I High Sens (2.3-19.7) pg/mL B-Natriuretic Peptide (5-100) pg/mL Total Protein (6.7-8.2) g/dL Albumin (3.2-5.5) g/dL Globulin (2.1-4.2) g/dL Albumin/Globulin Ratio (1.0-2.2) Lipase (22-51) U/L Urine Color Urine Clarity (CLEAR) Urine pH (5.0-7.5) PH Ur Specific [place] (1.002-1.030) Urine Protein (NEGATIVE) mg/dL Urine Glucose (UA) (NEGATIVE) mg/dL Urine Ketones (NEGATIVE) mg/dL Urine Occult Blood (NEGATIVE) Urine Nitrite (NEGATIVE) Urine Bilirubin (NEGATIVE) Urine Urobilinogen (NORMAL) E.U./dL Ur Leukocyte Esterase (NEGATIVE) Ur Microscopic Review Urine Culture Comments Nasal Screen MRSA (PCR) (NEGATIVE) Blood Type Blood Type Recheck Antibody Screen Crossmatch IS Only 04/22/19 04/22/19 04/22/19 Range/Units 20:35 20:05 20:05 WBC (4.8-10.8) x10^3/uL RBC 1.68 L (4.70-6.10) 10^6/uL Hgb (14.0-18.0) g/dL Hct (42.0-52.0) % MCV (80.0-94.0) fL MCH (27.0-31.0) pg MCHC (32.0-36.0) g/dL RDW (12.0-15.0) % Plt Count (130-450) 10^3/uL MPV (7.4-11.4) fL Reticulocyte % (Auto) 3.03 H (0.5-2.3) % Neut # (Auto) (1.5-6.6) 10^3/uL Lymph # (Auto) (1.5-3.5) 10^3/uL [place] # (Auto) (0.0-1.0) 10^3/uL Eos # (Auto) (0.0-0.7) 10^3/uL Baso # (Auto) (0.0-0.1) 10^3/uL Absolute Nucleated RBC x10^3/uL Nucleated RBC % /100WBC Manual Slide Review WBC Morphology (NORMAL) Platelet Estimate (NORMAL) Platelet Morphology (NORMAL) RBC Morph Micro Appear (NORMAL) Absolute Retic 0.051 (0.020-0.110) 10^6/uL PT (9.9-12.6) secs INR (0.8-1.2) VBG pH (7.31-7.41) VBG pCO2 (41-51) mmHg VBG pO2 (25-47) mmHg VBG HCO3 (23-28) mmol/L VBG Total CO2 (24-29) mmol/L VBG O2 Saturation (60-80) % VBG Base Excess (-2 - +2) mmol/L Sodium (135-145) mmol/L Potassium (3.5-5.0) mmol/L Chloride (101-111) mmol/L Carbon Dioxide (21-32) mmol/L Anion Gap (6-13) BUN (6-20) mg/dL Creatinine (0.6-1.2) mg/dL Estimated GFR (MDRD) (>89) Glucose (70-100) mg/dL Lactic Acid 2.0 (0.5-2.2) mmol/L Calcium (8.5-10.3) mg/dL Phosphorus (2.5-4.6) mg/dL Magnesium (1.7-2.8) mg/dL Iron (45-182) ug/dL TIBC (250-450) ug/dL % Saturation (20-50) % Transferrin (180-329) mg/dL Ferritin (23.9-336.2) ng/mL Total Bilirubin (0.2-1.0) mg/dL AST (10-42) IU/L ALT (10-60) IU/L Alkaline Phosphatase (42-121) IU/L Troponin I High Sens (2.3-19.7) pg/mL B-Natriuretic Peptide (5-100) pg/mL Total Protein (6.7-8.2) g/dL Albumin (3.2-5.5) g/dL Globulin (2.1-4.2) g/dL Albumin/Globulin Ratio (1.0-2.2) Lipase (22-51) U/L Urine Color YELLOW Urine Clarity CLEAR (CLEAR) Urine pH 5.0 (5.0-7.5) PH Ur Specific [place] 1.010 (1.002-1.030) Urine Protein NEGATIVE (NEGATIVE) mg/dL Urine Glucose (UA) NEGATIVE (NEGATIVE) mg/dL Urine Ketones NEGATIVE (NEGATIVE) mg/dL Urine Occult Blood NEGATIVE (NEGATIVE) Urine Nitrite NEGATIVE (NEGATIVE) Urine Bilirubin NEGATIVE (NEGATIVE) Urine Urobilinogen 0.2 (NORMAL) (NORMAL) E.U./dL Ur Leukocyte Esterase NEGATIVE (NEGATIVE) Ur Microscopic Review NOT INDICATED Urine Culture Comments NOT INDICATED Nasal Screen MRSA (PCR) (NEGATIVE) Blood Type Blood Type Recheck Antibody Screen Crossmatch IS Only 04/22/19 04/22/19 04/22/19 Range/Units 17:46 16:40 15:10 WBC 9.3 (4.8-10.8) x10^3/uL RBC 1.64 L (4.70-6.10) 10^6/uL Hgb 2.7 L* (14.0-18.0) g/dL Hct 11.6 L* (42.0-52.0) % MCV 70.7 L (80.0-94.0) fL MCH 16.5 L (27.0-31.0) pg MCHC 23.3 L (32.0-36.0) g/dL RDW 25.9 H (12.0-15.0) % Plt Count 50 L (130-450) 10^3/uL MPV 8.9 (7.4-11.4) fL Reticulocyte % (Auto) (0.5-2.3) % Neut # (Auto) 7.9 H (1.5-6.6) 10^3/uL Lymph # (Auto) 0.9 L (1.5-3.5) 10^3/uL [place] # (Auto) 0.3 (0.0-1.0) 10^3/uL Eos # (Auto) 0.2 (0.0-0.7) 10^3/uL Baso # (Auto) 0.0 (0.0-0.1) 10^3/uL Absolute Nucleated RBC 0.00 x10^3/uL Nucleated RBC % 0.0 /100WBC Manual Slide Review Indicated WBC Morphology (NORMAL) Platelet Estimate DECREASED (<130,000) (NORMAL) Platelet Morphology NORMAL APPEARANCE (NORMAL) RBC Morph Micro Appear 2+ MICROCYTOSIS (NORMAL) Absolute Retic (0.020-0.110) 10^6/uL PT (9.9-12.6) secs INR (0.8-1.2) VBG pH (7.31-7.41) VBG pCO2 (41-51) mmHg VBG pO2 (25-47) mmHg VBG HCO3 (23-28) mmol/L VBG Total CO2 (24-29) mmol/L VBG O2 Saturation (60-80) % VBG Base Excess (-2 - +2) mmol/L Sodium (135-145) mmol/L Potassium (3.5-5.0) mmol/L Chloride (101-111) mmol/L Carbon Dioxide (21-32) mmol/L Anion Gap (6-13) BUN (6-20) mg/dL Creatinine (0.6-1.2) mg/dL Estimated GFR (MDRD) (>89) Glucose (70-100) mg/dL Lactic Acid (0.5-2.2) mmol/L Calcium (8.5-10.3) mg/dL Phosphorus (2.5-4.6) mg/dL Magnesium (1.7-2.8) mg/dL Iron (45-182) ug/dL TIBC (250-450) ug/dL % Saturation (20-50) % Transferrin (180-329) mg/dL Ferritin (23.9-336.2) ng/mL Total Bilirubin (0.2-1.0) mg/dL AST (10-42) IU/L ALT (10-60) IU/L Alkaline Phosphatase (42-121) IU/L Troponin I High Sens (2.3-19.7) pg/mL B-Natriuretic Peptide (5-100) pg/mL Total Protein (6.7-8.2) g/dL Albumin (3.2-5.5) g/dL Globulin (2.1-4.2) g/dL Albumin/Globulin Ratio (1.0-2.2) Lipase (22-51) U/L Urine Color Urine Clarity (CLEAR) Urine pH (5.0-7.5) PH Ur Specific [place] (1.002-1.030) Urine Protein (NEGATIVE) mg/dL Urine Glucose (UA) (NEGATIVE) mg/dL Urine Ketones (NEGATIVE) mg/dL Urine Occult Blood (NEGATIVE) Urine Nitrite (NEGATIVE) Urine Bilirubin (NEGATIVE) Urine Urobilinogen (NORMAL) E.U./dL Ur Leukocyte Esterase (NEGATIVE) Ur Microscopic Review Urine Culture Comments Nasal Screen MRSA (PCR) NEGATIVE (NEGATIVE) Blood Type AB POSITIVE Blood Type Recheck Antibody Screen NEGATIVE Crossmatch IS Only See Detail 04/22/19 04/22/19 04/22/19 Range/Units 13:55 13:50 13:50 WBC (4.8-10.8) x10^3/uL RBC (4.70-6.10) 10^6/uL Hgb (14.0-18.0) g/dL Hct (42.0-52.0) % MCV (80.0-94.0) fL MCH (27.0-31.0) pg MCHC (32.0-36.0) g/dL RDW (12.0-15.0) % Plt Count (130-450) 10^3/uL MPV (7.4-11.4) fL Reticulocyte % (Auto) (0.5-2.3) % Neut # (Auto) (1.5-6.6) 10^3/uL Lymph # (Auto) (1.5-3.5) 10^3/uL [place] # (Auto) (0.0-1.0) 10^3/uL Eos # (Auto) (0.0-0.7) 10^3/uL Baso # (Auto) (0.0-0.1) 10^3/uL Absolute Nucleated RBC x10^3/uL Nucleated RBC % /100WBC Manual Slide Review WBC Morphology (NORMAL) Platelet Estimate (NORMAL) Platelet Morphology (NORMAL) RBC Morph Micro Appear (NORMAL) Absolute Retic (0.020-0.110) 10^6/uL PT 13.0 H (9.9-12.6) secs INR 1.2 (0.8-1.2) VBG pH (7.31-7.41) VBG pCO2 (41-51) mmHg VBG pO2 (25-47) mmHg VBG HCO3 (23-28) mmol/L VBG Total CO2 (24-29) mmol/L VBG O2 Saturation (60-80) % VBG Base Excess (-2 - +2) mmol/L Sodium (135-145) mmol/L Potassium (3.5-5.0) mmol/L Chloride (101-111) mmol/L Carbon Dioxide (21-32) mmol/L Anion Gap (6-13) BUN (6-20) mg/dL Creatinine (0.6-1.2) mg/dL Estimated GFR (MDRD) (>89) Glucose (70-100) mg/dL Lactic Acid (0.5-2.2) mmol/L Calcium (8.5-10.3) mg/dL Phosphorus (2.5-4.6) mg/dL Magnesium (1.7-2.8) mg/dL Iron (45-182) ug/dL TIBC (250-450) ug/dL % Saturation (20-50) % Transferrin (180-329) mg/dL Ferritin 7.0 L (23.9-336.2) ng/mL Total Bilirubin (0.2-1.0) mg/dL AST (10-42) IU/L ALT (10-60) IU/L Alkaline Phosphatase (42-121) IU/L Troponin I High Sens (2.3-19.7) pg/mL B-Natriuretic Peptide (5-100) pg/mL Total Protein (6.7-8.2) g/dL Albumin (3.2-5.5) g/dL Globulin (2.1-4.2) g/dL Albumin/Globulin Ratio (1.0-2.2) Lipase (22-51) U/L Urine Color Urine Clarity (CLEAR) Urine pH (5.0-7.5) PH Ur Specific [place] (1.002-1.030) Urine Protein (NEGATIVE) mg/dL Urine Glucose (UA) (NEGATIVE) mg/dL Urine Ketones (NEGATIVE) mg/dL Urine Occult Blood (NEGATIVE) Urine Nitrite (NEGATIVE) Urine Bilirubin (NEGATIVE) Urine Urobilinogen (NORMAL) E.U./dL Ur Leukocyte Esterase (NEGATIVE) Ur Microscopic Review Urine Culture Comments Nasal Screen MRSA (PCR) (NEGATIVE) Blood Type Blood Type Recheck AB POSITIVE Antibody Screen Crossmatch IS Only 04/22/19 04/22/19 04/22/19 Range/Units 13:50 13:50 13:50 WBC (4.8-10.8) x10^3/uL RBC (4.70-6.10) 10^6/uL Hgb (14.0-18.0) g/dL Hct (42.0-52.0) % MCV (80.0-94.0) fL MCH (27.0-31.0) pg MCHC (32.0-36.0) g/dL RDW (12.0-15.0) % Plt Count (130-450) 10^3/uL MPV (7.4-11.4) fL Reticulocyte % (Auto) (0.5-2.3) % Neut # (Auto) (1.5-6.6) 10^3/uL Lymph # (Auto) (1.5-3.5) 10^3/uL [place] # (Auto) (0.0-1.0) 10^3/uL Eos # (Auto) (0.0-0.7) 10^3/uL Baso # (Auto) (0.0-0.1) 10^3/uL Absolute Nucleated RBC x10^3/uL Nucleated RBC % /100WBC Manual Slide Review WBC Morphology (NORMAL) Platelet Estimate (NORMAL) Platelet Morphology (NORMAL) RBC Morph Micro Appear (NORMAL) Absolute Retic (0.020-0.110) 10^6/uL PT (9.9-12.6) secs INR (0.8-1.2) VBG pH 7.382 (7.31-7.41) VBG pCO2 47.0 (41-51) mmHg VBG pO2 82.9 H (25-47) mmHg VBG HCO3 27.3 (23-28) mmol/L VBG Total CO2 28.7 (24-29) mmol/L VBG O2 Saturation 95.5 H (60-80) % VBG Base Excess 2.2 H (-2 - +2) mmol/L Sodium (135-145) mmol/L Potassium (3.5-5.0) mmol/L Chloride (101-111) mmol/L Carbon Dioxide (21-32) mmol/L Anion Gap (6-13) BUN (6-20) mg/dL Creatinine (0.6-1.2) mg/dL Estimated GFR (MDRD) (>89) Glucose (70-100) mg/dL Lactic Acid 3.8 H* (0.5-2.2) mmol/L Calcium (8.5-10.3) mg/dL Phosphorus (2.5-4.6) mg/dL Magnesium (1.7-2.8) mg/dL Iron 22 L (45-182) ug/dL TIBC 529 H (250-450) ug/dL % Saturation 4 L (20-50) % Transferrin 378 H (180-329) mg/dL Ferritin (23.9-336.2) ng/mL Total Bilirubin (0.2-1.0) mg/dL AST (10-42) IU/L ALT (10-60) IU/L Alkaline Phosphatase (42-121) IU/L Troponin I High Sens (2.3-19.7) pg/mL B-Natriuretic Peptide (5-100) pg/mL Total Protein (6.7-8.2) g/dL Albumin (3.2-5.5) g/dL Globulin (2.1-4.2) g/dL Albumin/Globulin Ratio (1.0-2.2) Lipase (22-51) U/L Urine Color Urine Clarity (CLEAR) Urine pH (5.0-7.5) PH Ur Specific [place] (1.002-1.030) Urine Protein (NEGATIVE) mg/dL Urine Glucose (UA) (NEGATIVE) mg/dL Urine Ketones (NEGATIVE) mg/dL Urine Occult Blood (NEGATIVE) Urine Nitrite (NEGATIVE) Urine Bilirubin (NEGATIVE) Urine Urobilinogen (NORMAL) E.U./dL Ur Leukocyte Esterase (NEGATIVE) Ur Microscopic Review Urine Culture Comments Nasal Screen MRSA (PCR) (NEGATIVE) Blood Type Blood Type Recheck Antibody Screen Crossmatch IS Only 04/22/19 04/22/19 04/22/19 Range/Units 13:50 13:50 13:50 WBC (4.8-10.8) x10^3/uL RBC (4.70-6.10) 10^6/uL Hgb (14.0-18.0) g/dL Hct (42.0-52.0) % MCV (80.0-94.0) fL MCH (27.0-31.0) pg MCHC (32.0-36.0) g/dL RDW (12.0-15.0) % Plt Count (130-450) 10^3/uL MPV (7.4-11.4) fL Reticulocyte % (Auto) (0.5-2.3) % Neut # (Auto) (1.5-6.6) 10^3/uL Lymph # (Auto) (1.5-3.5) 10^3/uL [place] # (Auto) (0.0-1.0) 10^3/uL Eos # (Auto) (0.0-0.7) 10^3/uL Baso # (Auto) (0.0-0.1) 10^3/uL Absolute Nucleated RBC x10^3/uL Nucleated RBC % /100WBC Manual Slide Review WBC Morphology (NORMAL) Platelet Estimate (NORMAL) Platelet Morphology (NORMAL) RBC Morph Micro Appear (NORMAL) Absolute Retic (0.020-0.110) 10^6/uL PT (9.9-12.6) secs INR (0.8-1.2) VBG pH (7.31-7.41) VBG pCO2 (41-51) mmHg VBG pO2 (25-47) mmHg VBG HCO3 (23-28) mmol/L VBG Total CO2 (24-29) mmol/L VBG O2 Saturation (60-80) % VBG Base Excess (-2 - +2) mmol/L Sodium 139 (135-145) mmol/L Potassium 3.3 L (3.5-5.0) mmol/L Chloride 99 L (101-111) mmol/L Carbon Dioxide 28 (21-32) mmol/L Anion Gap 12.0 (6-13) BUN 34 H (6-20) mg/dL Creatinine 1.9 H (0.6-1.2) mg/dL Estimated GFR (MDRD) 35 L (>89) Glucose 188 H (70-100) mg/dL Lactic Acid (0.5-2.2) mmol/L Calcium 7.9 L (8.5-10.3) mg/dL Phosphorus (2.5-4.6) mg/dL Magnesium 2.3 (1.7-2.8) mg/dL Iron (45-182) ug/dL TIBC (250-450) ug/dL % Saturation (20-50) % Transferrin (180-329) mg/dL Ferritin (23.9-336.2) ng/mL Total Bilirubin 0.4 (0.2-1.0) mg/dL AST 19 (10-42) IU/L ALT 13 (10-60) IU/L Alkaline Phosphatase 90 (42-121) IU/L Troponin I High Sens < 2.3 L (2.3-19.7) pg/mL B-Natriuretic Peptide 222 H (5-100) pg/mL Total Protein 7.4 (6.7-8.2) g/dL Albumin 3.4 (3.2-5.5) g/dL Globulin 4.0 (2.1-4.2) g/dL Albumin/Globulin Ratio 0.9 L (1.0-2.2) Lipase 25 (22-51) U/L Urine Color Urine Clarity (CLEAR) Urine pH (5.0-7.5) PH Ur Specific [place] (1.002-1.030) Urine Protein (NEGATIVE) mg/dL Urine Glucose (UA) (NEGATIVE) mg/dL Urine Ketones (NEGATIVE) mg/dL Urine Occult Blood (NEGATIVE) Urine Nitrite (NEGATIVE) Urine Bilirubin (NEGATIVE) Urine Urobilinogen (NORMAL) E.U./dL Ur Leukocyte Esterase (NEGATIVE) Ur Microscopic Review Urine Culture Comments Nasal Screen MRSA (PCR) (NEGATIVE) Blood Type Blood Type Recheck Antibody Screen Crossmatch IS Only Assessment/Plan - Problem List (1) Anemia Impression: He is still severely anemic and did not respond appropriately to transfusion of 3 units PRBC. Hemologobin this morning is still only 3.8. He is currently being transfused another unit of PRBC. There once again appears to be no signs of active bleeding. His reticuloycte is 0.3 which is very low and concerning for bone marrow failure as this is not an appropriate response. This appears to be a chronic process and not an acute hemorrhage given his hemodynamic stability and low MCV. - Will continue to transfuse for a goal hemoglobin of 7 - He is a little dyspneic and therefore I will administer 60mg of Lasix IV - Will check an INR to ensure he is not developing a coagulopathy with the amount of PRBC's he is receiving - Repeat fecal occult stool to rule out a false negative - Will discuss with Hematology here at the [facility] clinic tomorrow regarding further approach to diagnosis as he will likely require a bone marrow biopsy and whether he will need to be transferred or if this can be done an outpatient basis Qualifiers: Anemia type: unspecified type Qualified Code(s): D64.9 - Anemia, unspecified (2) Thrombocytopenia Impression: He also has thrombocytopenia and his platelet count has been decreasing and now in the mid 30's. No signs of bleeding. - Continue to hold chemical DVT prophylaxis - Will likely transfuse a 6 pack of platelets as he has required multiple PRBC transfusions and we will need to keep him balanced. He may also require transfusion of FFP. - Monitor for signs of bleeding (3) Acute kidney injury superimposed on CKD Impression: His renal function is slightly improved this morning but not at baseline. This may be acute kidney injury or progression of his CKD as his most recent labs are from last year. Urine output has been adequate. - His renal function should continue to improve as he is being transfused - Will give a dose of Lasix as he is dyspneic - Monitor renal function and urine output (4) Chronic respiratory failure with hypoxia Impression: He remains at his baseline 2L of oxygen. He is not hypoxic but is feeling dyspneic. - Will give a dose of Lasix - Continue Budesonide and Albuterol PRN - Continue supplemental oxygen (5) Paroxysmal atrial fibrillation Impression: He is tachycardic this morning but remains in a sinus rhythm. Likely because he is not receiving his home cardizem. - Will resume home Cardizem - Monitor on telemetry (6) Hypertension Impression: He is hypertensive this morning likely due to the amount of volume he has received secondary to the PRBC tranfusions and that he is off of his antihypertensives. - Will resume Cardizem and HCTZ today - Will hold off on resuming Losrtan at this time due to potential MALGORZATA (7) Lactic acidosis Impression: This has resolved after transfusion of PRBC's.
[2019-04-23] MEDS ORDERED: FUROSEMIDE 40 MG/4 ML VIAL IVP STA (10:41)
[2019-04-23] MEDS ORDERED: ALBUTEROL NEB 2.5 MG/3 ML INH PRN ×2 (11:07→11:15)
[2019-04-23 12:05] LABS: BASOPHILS % (AUTO) 0.1 %; EOSINOPHILS % (AUTO) 0.1 %; LYMPHOCYTES # (AUTO) 0.7 10^3/uL (1.5-3.5); LYMPHOCYTES % (AUTO) 8.7 %; MEAN CORPUSCULAR HGB CONC 28.9 g/dL (32.0-36.0); MEAN CORPUSCULAR VOLUME 79.4 fL (80.0-94.0); MEAN PLATELET VOLUME 8.7 fL (7.4-11.4); MONOCYTES # (AUTO) 0.4 10^3/uL (0.0-1.0); MONOCYTES % (AUTO) 4.9 %; NEUTROPHILS # (AUTO) 6.2 10^3/uL (1.5-6.6); NEUTROPHILS % (AUTO) 79.8 %; RED BLOOD COUNT 2.57 10^6/uL (4.70-6.10); RED CELL DISTRIBUTION WIDTH 25.5 % (12.0-15.0); WHITE BLOOD COUNT 7.8 x10^3/uL (4.8-10.8)
[2019-04-23 12:10] LABS: HGB - HEMOGLOBIN 5.9 g/dL (14.0-18.0); PLT - PLATELET COUNT 31 10^3/uL (130-450)
[2019-04-23] MEDS: diltiaZEM CD 180 MG CAPSULE PO SCH (14:48)
[2019-04-23 15:57] LABS: MEAN CORPUSCULAR HEMOGLOBIN 23.4 pg (27.0-31.0); MEAN CORPUSCULAR HGB CONC 28.8 g/dL (32.0-36.0); MEAN PLATELET VOLUME 7.5 fL (7.4-11.4); RED BLOOD COUNT 2.74 10^6/uL (4.70-6.10); RED CELL DISTRIBUTION WIDTH 25.2 % (12.0-15.0); WHITE BLOOD COUNT 9.3 x10^3/uL (4.8-10.8)
[2019-04-23 16:02] LABS: INR 1.1 (0.8-1.2); PT - PROTHROMBIN TIME 12.7 secs (9.9-12.6)
[2019-04-23 16:06] LABS: HGB - HEMOGLOBIN 6.4 g/dL (14.0-18.0)
[2019-04-23] MEDS: SODIUM CHLORIDE FLUSH 0.9% 10 ML SYRINGE IVP PRN (19:24)
[2019-04-23 20:23] LABS: BASOPHILS % (AUTO) 0.1 %; LYMPHOCYTES % (AUTO) 9.4 %; MEAN CORPUSCULAR HEMOGLOBIN 24.6 pg (27.0-31.0); MEAN CORPUSCULAR HGB CONC 29.7 g/dL (32.0-36.0); MEAN CORPUSCULAR VOLUME 82.6 fL (80.0-94.0); MEAN PLATELET VOLUME 9.2 fL (7.4-11.4); MONOCYTES # (AUTO) 1.2 10^3/uL (0.0-1.0); MONOCYTES % (AUTO) 10.7 %; NEUTROPHILS # (AUTO) 8.5 10^3/uL (1.5-6.6); NEUTROPHILS % (AUTO) 76.7 %; RED BLOOD COUNT 2.81 10^6/uL (4.70-6.10); RED CELL DISTRIBUTION WIDTH 24.2 % (12.0-15.0); WHITE BLOOD COUNT 11.1 x10^3/uL (4.8-10.8)
[2019-04-23 20:30] LABS: HGB - HEMOGLOBIN 6.9 g/dL (14.0-18.0); PLT - PLATELET COUNT 27 10^3/uL (130-450)
[2019-04-23 21:04] LABS: PLATELET ESTIMATE, MANUAL DECREASED (<130,000) (NORMAL); PLATELET MORPHOLOGY NORMAL APPEARANCE (NORMAL)
[2019-04-24] MEDS: SODIUM CHLORIDE FLUSH 0.9% 10 ML SYRINGE IVP SCH ×3 (01:03→16:30)
[2019-04-24] MEDS: PANTOPRAZOLE 40 MG VIAL IVP SCH (06:15)
[2019-04-24] MEDS: SODIUM CHLORIDE FLUSH 0.9% 10 ML SYRINGE IVP PRN (06:16)
[2019-04-24 06:21] LABS: BASOPHILS % (AUTO) 0.2 %; LYMPHOCYTES % (AUTO) 9.9 %; MEAN CORPUSCULAR HEMOGLOBIN 25.6 pg (27.0-31.0); MEAN CORPUSCULAR HGB CONC 30.7 g/dL (32.0-36.0); MEAN CORPUSCULAR VOLUME 83.5 fL (80.0-94.0); MEAN PLATELET VOLUME 9.4 fL (7.4-11.4); MONOCYTES # (AUTO) 0.9 10^3/uL (0.0-1.0); MONOCYTES % (AUTO) 8.4 %; NEUTROPHILS % (AUTO) 79.9 %; PLT - PLATELET COUNT 70 10^3/uL (130-450); RED BLOOD COUNT 2.73 10^6/uL (4.70-6.10); RED CELL DISTRIBUTION WIDTH 23.8 % (12.0-15.0); WHITE BLOOD COUNT 10.1 x10^3/uL (4.8-10.8)
[2019-04-24 06:34] LABS: HB2 TOTAL 7.1 g/dL; HEMOGLOBIN A1C 0.34 g/dL; HEMOGLOBIN A1C % 6.5 % (4.6-6.2)
[2019-04-24 06:38] LABS: MAGNESIUM 2.3 mg/dL (1.7-2.8); PHOSPHORUS 2.7 mg/dL (2.5-4.6)
[2019-04-24 06:56] LABS: ALBUMIN 3.2 g/dL (3.2-5.5); CALCIUM 8.2 mg/dL (8.5-10.3)
[2019-04-24 06:57] LABS: PLATELET ESTIMATE, MANUAL DECREASED (<130,000) (NORMAL); PLATELET MORPHOLOGY NORMAL APPEARANCE (NORMAL)
[2019-04-24] MEDS: BUDESONIDE 0.5 MG/2 ML NEB INH SCH ×2 (07:02→19:54)
[2019-04-24] MEDS: IPRATROPIUM/ALBUTEROL 3 ML NEB INH PRN ×3 (07:02→19:55)
[2019-04-24 08:16] LABS: CALCIUM 8.3 mg/dL (8.5-10.3); CREATININE 1.6 mg/dL (0.6-1.2)
[2019-04-24] MEDS: INSULIN ASPART 300 UNIT/3 ML PEN SUBQ SCH ×5 (08:20→20:52)
[2019-04-24] MEDS ORDERED: hydroCHLOROthiazide 12.5 MG CAPSULE PO SCH (09:00)
[2019-04-24] MEDS ORDERED: POLYETHYLENE GLYCOL 3350 17 GM PACKET PO SCH (09:00)
[2019-04-24] MEDS: diltiaZEM CD 180 MG CAPSULE PO SCH (09:00)
[2019-04-24] MEDS ORDERED: FUROSEMIDE 20 MG/2 ML VIAL IVP SCH (11:00)
--- NOTE | 2019-04-24 11:27 | XRAY Report ---
Reason: Worse SOB Procedure Date: 04/24/2019 Accession Number: [id number] / [id number] Procedure: XR - Chest 1 View X-Ray CPT Code: 90432 FULL RESULT: EXAM: CHEST RADIOGRAPHY EXAM DATE: 04/24/2019 11:15 AM. CLINICAL HISTORY: Worse shortness of breath. COMPARISON: CHEST 1 VIEW 04/22/2019 1:58 PM. TECHNIQUE: 1 view. FINDINGS: Lungs/Pleura: Not well evaluated is what is felt to likely represent a layering right pleural effusion. Appearance of apparent circumferential effusion surrounding the right lung is potentially artifactual given rotation, the size of the effusion is not well established but certainly increased or new compared to 04/22/2019. No pneumothorax is visualized. There is mild peribronchial cuffing and prominence of interstitial markings. Mediastinum: Enlarged cardiomediastinal silhouette obscuring portions of the left lung base is again seen. Other: None. IMPRESSION: Increasing right and potentially left pleural effusions. RADIA
--- NOTE | 2019-04-24 11:57 | PROVIDER PROGRESS NOTE ---
Assessment/Plan - Problem List (1) Anemia Qualifiers: Anemia type: unspecified type Qualified Code(s): D64.9 - Anemia, unspecified - Current Meds Current Meds: Current Medications Generic Name Dose Route Start Last Admin Trade Name Freq PRN Reason Stop Dose Admin Albuterol/Ipratropium 3 ml 04/23/19 06:51 04/24/19 07:02 Duoneb INH 3 ml Q4HR PRN Administration Wheezing Budesonide 0.5 mg 04/23/19 07:00 04/24/19 07:02 Pulmicort INH 0.5 mg RTBID DINESH Administration Diltiazem HCl 180 mg 04/23/19 13:27 04/24/19 09:00 Cardizem Cd PO 180 mg DAILY DINESH Administration Furosemide 60 mg 04/24/19 11:00 04/24/19 11:04 Lasix Inj 20mg Vial IVP 60 mg DAILY DINESH Administration Gabapentin 100 mg 04/22/19 21:00 04/23/19 21:09 Neurontin PO 100 mg QPM DINESH Administration Hydrochlorothiazide 12.5 mg 04/24/19 09:00 04/24/19 11:04 Hydrodiuril PO 12.5 mg DAILY DINESH Administration Insulin Aspart 1 - 9 unit 04/23/19 08:00 04/24/19 11:55 Novolog SUBQ Not Given 0800,1200,1700,2100 [facility] Protocol Pantoprazole Sodium 40 mg 04/22/19 18:00 04/24/19 06:15 Protonix IVP 40 mg QDAC DINESH Administration Polyethylene Glycol 17 gm 04/24/19 09:00 04/24/19 09:00 Miralax PO 17 gm DAILY DINESH Administration Sodium Chloride 10 ml 04/23/19 01:00 04/24/19 09:00 Normal Saline Flush 0.9% IVP 30 ml 0100,0900,1700 DINESH Administration Sodium Chloride 10 ml 04/22/19 17:04 04/24/19 06:16 Normal Saline Flush 0.9% IVP 30 ml PRN PRN Administration NEEDED PER PROVIDER ORDERS - Lab Result Fish Bone Diagrams: 04/24/19 11:50 04/24/19 06:10 - Additional Planning My Orders: My Active Orders 04/24/19 06:10 BNP - B-NATRIURETIC PEPTIDE [IAI] Routine 04/24/19 11:00 FUROSEMIDE INJ 20mg VIAL [LASIX INJ 20mg VIAL] 60 mg IVP DAILY Subjective - Subjective Patient Reports: Shortness of Breath Objective Vital Signs: Vital Signs - 24 hr 04/23/19 04/23/19 04/23/19 12:00 12:45 13:00 Temperature 36.6 C 36.7 C 36.9 C Heart Rate 101 H 94 Heart Rate [ 97 94 Monitoring electrodes] Respiratory 19 24 24 Rate Blood Pressure 177/73 H 161/65 H Blood Pressure 154/52 H 161/65 H [Right Radial artery] O2 Saturation 100 04/23/19 04/23/19 04/23/19 14:00 15:00 15:05 Temperature 36.9 C 36.6 C Heart Rate 102 H Heart Rate [ 106 H 105 H Monitoring electrodes] Respiratory 24 22 22 Rate Blood Pressure 173/74 H Blood Pressure 195/81 H 173/74 H [Right Radial artery] O2 Saturation 96 98 04/23/19 04/23/19 04/23/19 15:19 15:53 16:00 Temperature 36.8 C Heart Rate 106 H 97 Heart Rate [ 104 H Monitoring electrodes] Respiratory 26 H 22 24 Rate Blood Pressure 193/75 H Blood Pressure 122/105 H [Right Radial artery] O2 Saturation 96 04/23/19 04/23/19 04/23/19 17:00 18:00 19:22 Temperature 37.6 C H 37.5 C Heart Rate 99 Heart Rate [ 100 100 Monitoring electrodes] Respiratory 24 24 22 Rate Blood Pressure 179/59 H Blood Pressure 131/78 H 155/65 H [Right Radial artery] O2 Saturation 94 96 04/23/19 04/23/19 04/23/19 19:23 19:47 21:00 Temperature 37.5 C Heart Rate 103 H Heart Rate [ 98 102 H Monitoring electrodes] Respiratory 23 30 H 21 Rate Blood Pressure Blood Pressure 179/59 H 183/75 H [Right Radial artery] O2 Saturation 94 94 04/23/19 04/23/19 04/23/19 22:00 22:54 23:00 Temperature 37.3 C Heart Rate 95 Heart Rate [ 101 H 93 Monitoring electrodes] Respiratory 19 21 18 Rate Blood Pressure 146/82 H Blood Pressure 170/75 H 171/76 H [Right Radial artery] O2 Saturation 96 94 04/23/19 04/23/19 04/24/19 23:29 23:50 00:00 Temperature 37.3 C 37.3 C 37.3 C Heart Rate 95 95 Heart Rate [ 92 Monitoring electrodes] Respiratory 19 17 17 Rate Blood Pressure 164/73 H 164/73 H Blood Pressure 160/67 H [Right Radial artery] O2 Saturation 94 04/24/19 04/24/19 04/24/19 00:15 01:00 02:00 Temperature 37.4 C Heart Rate 96 Heart Rate [ 93 85 Monitoring electrodes] Respiratory 17 17 18 Rate Blood Pressure 152/78 H Blood Pressure 179/69 H 164/75 H [Right Radial artery] O2 Saturation 92 95 04/24/19 04/24/19 04/24/19 02:34 02:58 03:00 Temperature 37.5 C 37.5 C Heart Rate 86 84 Heart Rate [ 87 Monitoring electrodes] Respiratory 16 16 18 Rate Blood Pressure 174/80 H 174/80 H Blood Pressure 187/78 H [Right Radial artery] O2 Saturation 96 04/24/19 04/24/19 04/24/19 03:17 03:35 03:51 Temperature 37.4 C 37.3 C 37.3 C Heart Rate 89 86 82 Heart Rate [ Monitoring electrodes] Respiratory 22 20 16 Rate Blood Pressure 176/83 H 187/78 H 187/78 H Blood Pressure [Right Radial artery] O2 Saturation 04/24/19 04/24/19 04/24/19 04:00 04:14 04:29 Temperature 37.4 C 37.0 C 37.2 C Heart Rate 87 85 Heart Rate [ 87 Monitoring electrodes] Respiratory 20 20 18 Rate Blood Pressure 171/80 H 170/68 H Blood Pressure 181/80 H [Right Radial artery] O2 Saturation 95 04/24/19 04/24/19 04/24/19 05:00 06:00 07:00 Temperature Heart Rate 85 Heart Rate [ 87 81 83 Monitoring electrodes] Respiratory 18 18 19 Rate Blood Pressure Blood Pressure 166/66 H 163/84 H 180/83 H [Right Radial artery] O2 Saturation 96 94 96 04/24/19 04/24/19 04/24/19 08:00 09:00 10:00 Temperature 36.9 C Heart Rate Heart Rate [ 89 83 73 Monitoring electrodes] Respiratory 21 18 16 Rate Blood Pressure Blood Pressure 171/76 H 169/61 H 148/49 H [Right Radial artery] O2 Saturation 95 94 91 L Oxygen O2 Source CPAP Oxygen Flow Rate 2 I&O (Last 24 Hrs): Intake and Output Totals x24h 04/22/19 04/23/19 04/24/19 23:59 23:59 23:59 Intake Total 20294 Output Total 700 4900 1800 Balance 1330 -277 314 - Results Results: Laboratory Results WBC 10.1 x10^3/uL (4.8-10.8) 04/24/19 06:10 RBC 2.73 10^6/uL (4.70-6.10) L 04/24/19 06:10 Hgb 7.0 g/dL (14.0-18.0) L* 04/24/19 06:10 Hct 22.8 % (42.0-52.0) L 04/24/19 06:10 MCV 83.5 fL (80.0-94.0) 04/24/19 06:10 MCH 25.6 pg (27.0-31.0) L 04/24/19 06:10 MCHC 30.7 g/dL (32.0-36.0) L 04/24/19 06:10 RDW 23.8 % (12.0-15.0) H 04/24/19 06:10 Plt Count 70 10^3/uL (130-450) L 04/24/19 06:10 MPV 9.4 fL (7.4-11.4) 04/24/19 06:10 Reticulocyte % (Auto) 3.03 % (0.5-2.3) H 04/22/19 20:05 Neut # (Auto) 8.0 10^3/uL (1.5-6.6) H 04/24/19 06:10 Lymph # (Auto) 1.0 10^3/uL (1.5-3.5) L 04/24/19 06:10 [place] # (Auto) 0.9 10^3/uL (0.0-1.0) 04/24/19 06:10 Eos # (Auto) 0.0 10^3/uL (0.0-0.7) 04/24/19 06:10 Baso # (Auto) 0.0 10^3/uL (0.0-0.1) 04/24/19 06:10 Absolute Nucleated RBC 0.03 x10^3/uL 04/24/19 06:10 Nucleated RBC % 0.3 /100WBC 04/24/19 06:10 Manual Slide Review Indicated 04/24/19 06:10 WBC Morphology NORMAL APPEARANCE (NORMAL) 04/24/19 06:10 Platelet Estimate DECREASED (<130,000) (NORMAL) 04/24/19 06:10 Platelet Morphology NORMAL APPEARANCE (NORMAL) 04/24/19 06:10 RBC Morph Micro Appear 4+ HYPOCHROMASIA (NORMAL) 3+ MACROCYTOSIS (NORMAL) 2+ ANISOCYTOSIS (NORMAL) 04/23/19 03:30 RBC Morph Micro Appear 4+ HYPOCHROMASIA (NORMAL) 3+ MACROCYTOSIS (NORMAL) 2+ ANISOCYTOSIS (NORMAL) 04/23/19 03:30 RBC Morph Micro Appear 4+ HYPOCHROMASIA (NORMAL) 3+ MACROCYTOSIS (NORMAL) 2+ ANISOCYTOSIS (NORMAL) 04/23/19 03:30 RBC Morph Micro Appear 1+ ANISOCYTOSIS (NORMAL) 1+ BASO STIPPLING (NORMAL) 1+ MICROCYTOSIS (NORMAL) 1+ HYPOCHROMASIA (NORMAL) 1+ POLYCHROMASIA (NORMAL) 04/23/19 20:17 RBC Morph Micro Appear 1+ ANISOCYTOSIS (NORMAL) 1+ BASO STIPPLING (NORMAL) 1+ MICROCYTOSIS (NORMAL) 1+ HYPOCHROMASIA (NORMAL) 1+ POLYCHROMASIA (NORMAL) 04/23/19 20:17 RBC Morph Micro Appear 1+ ANISOCYTOSIS (NORMAL) 1+ BASO STIPPLING (NORMAL) 1+ MICROCYTOSIS (NORMAL) 1+ HYPOCHROMASIA (NORMAL) 1+ POLYCHROMASIA (NORMAL) 04/23/19 20:17 RBC Morph Micro Appear 1+ ANISOCYTOSIS (NORMAL) 1+ BASO STIPPLING (NORMAL) 1+ MICROCYTOSIS (NORMAL) 1+ HYPOCHROMASIA (NORMAL) 1+ POLYCHROMASIA (NORMAL) 04/23/19 20:17 RBC Morph Micro Appear 1+ ANISOCYTOSIS (NORMAL) 1+ BASO STIPPLING (NORMAL) 1+ MICROCYTOSIS (NORMAL) 1+ HYPOCHROMASIA (NORMAL) 1+ POLYCHROMASIA (NORMAL) 04/23/19 20:17 RBC Morph Micro Appear 3+ HYPOCHROMASIA (NORMAL) 2+ MICROCYTOSIS (NORMAL) 04/24/19 06:10 RBC Morph Micro Appear 3+ HYPOCHROMASIA (NORMAL) 2+ MICROCYTOSIS (NORMAL) 04/24/19 06:10 Absolute Retic 0.051 10^6/uL (0.020-0.110) 04/22/19 20:05 PT 12.7 secs (9.9-12.6) H 04/23/19 15:45 INR 1.1 (0.8-1.2) 04/23/19 15:45 VBG pH 7.382 (7.31-7.41) 04/22/19 13:50 VBG pCO2 47.0 mmHg (41-51) 04/22/19 13:50 VBG pO2 82.9 mmHg (25-47) H 04/22/19 13:50 VBG HCO3 27.3 mmol/L (23-28) 04/22/19 13:50 VBG Total CO2 28.7 mmol/L (24-29) 04/22/19 13:50 VBG O2 Saturation 95.5 % (60-80) H 04/22/19 13:50 VBG Base Excess 2.2 mmol/L (-2 - +2) H 04/22/19 13:50 Sodium 142 mmol/L (135-145) 04/24/19 06:10 Potassium 3.6 mmol/L (3.5-5.0) 04/24/19 06:10 Chloride 101 mmol/L (101-111) 04/24/19 06:10 Carbon Dioxide 31 mmol/L (21-32) 04/24/19 06:10 Anion Gap 10.0 (6-13) 04/24/19 06:10 BUN 37 mg/dL (6-20) H 04/24/19 06:10 Creatinine 1.6 mg/dL (0.6-1.2) H 04/24/19 06:10 Estimated GFR (MDRD) 42 (>89) L 04/24/19 06:10 Glucose 139 mg/dL (70-100) H 04/24/19 06:10 Glycated Hemoglobin 6.5 % (4.6-6.2) H 04/24/19 06:10 Estim Average Glucose 140 (70-100) H 04/24/19 06:10 Lactic Acid 2.0 mmol/L (0.5-2.2) 04/22/19 20:05 Calcium 8.3 mg/dL (8.5-10.3) L 04/24/19 06:10 Phosphorus 2.7 mg/dL (2.5-4.6) 04/24/19 06:10 Magnesium 2.3 mg/dL (1.7-2.8) 04/24/19 06:10 Iron 22 ug/dL (45-182) L 04/22/19 13:50 TIBC 529 ug/dL (250-450) H 04/22/19 13:50 % Saturation 4 % (20-50) L 04/22/19 13:50 Transferrin 378 mg/dL (180-329) H 04/22/19 13:50 Ferritin 7.0 ng/mL (23.9-336.2) L 04/22/19 13:50 Total Bilirubin 0.4 mg/dL (0.2-1.0) 04/22/19 13:50 AST 19 IU/L (10-42) 04/22/19 13:50 ALT 13 IU/L (10-60) 04/22/19 13:50 Alkaline Phosphatase 90 IU/L (42-121) 04/22/19 13:50 Troponin I High Sens < 2.3 pg/mL (2.3-19.7) L 04/22/19 13:50 B-Natriuretic Peptide 222 pg/mL (5-100) H 04/22/19 13:50 Total Protein 7.4 g/dL (6.7-8.2) 04/22/19 13:50 Albumin 3.2 g/dL (3.2-5.5) 04/24/19 06:10 Globulin 4.0 g/dL (2.1-4.2) 04/22/19 13:50 Albumin/Globulin Ratio 0.9 (1.0-2.2) L 04/22/19 13:50 Lipase 25 U/L (22-51) 04/22/19 13:50 Vitamin B12 426 pg/mL (180-914) 04/24/19 06:10 TSH 0.90 uIU/mL (0.34-5.60) 04/24/19 06:10 Urine Color YELLOW 04/22/19 20:35 Urine Clarity CLEAR (CLEAR) 04/22/19 20:35 Urine pH 5.0 PH (5.0-7.5) 04/22/19 20:35 Ur Specific Martin 1.010 (1.002-1.030) 04/22/19 20:35 Urine Protein NEGATIVE mg/dL (NEGATIVE) 04/22/19 20:35 Urine Glucose (UA) NEGATIVE mg/dL (NEGATIVE) 04/22/19 20:35 Urine Ketones NEGATIVE mg/dL (NEGATIVE) 04/22/19 20:35 Urine Occult Blood NEGATIVE (NEGATIVE) 04/22/19 20:35 Urine Nitrite NEGATIVE (NEGATIVE) 04/22/19 20:35 Urine Bilirubin NEGATIVE (NEGATIVE) 04/22/19 20:35 Urine Urobilinogen 0.2 (NORMAL) E.U./dL (NORMAL) 04/22/19 20:35 Ur Leukocyte Esterase NEGATIVE (NEGATIVE) 04/22/19 20:35 Ur Microscopic Review NOT INDICATED 04/22/19 20:35 Urine Culture Comments NOT INDICATED 04/22/19 20:35 Nasal Screen MRSA (PCR) NEGATIVE (NEGATIVE) 04/22/19 17:46 Blood Type AB POSITIVE 04/22/19 16:40 Blood Type Recheck AB POSITIVE 04/22/19 13:55 Antibody Screen NEGATIVE 04/22/19 16:40 Crossmatch IS Only See Detail 04/22/19 16:40 - Procedures Procedures: Procedures ASSISTANCE WITH RESPIRATORY VENTILATION, <24 HRS, CPAP (12/05/15) CATARAC PHACOEMULS/ASPIR (03/29/14) ENDOSC POLYPECTOMY OF LG INTEST (05/12/13) ESOPHAGOGASTRODUODENOSCOPY [EGD] W/CLOSED BIOPSY (05/12/13) INSERT LENS AT CATAR EXT (03/29/14)
[2019-04-24] MEDS: MIN OIL/DIMETHICON/COCONUT OIL 92 GM TUBE TOP PRN ×2 (12:00→22:34)
[2019-04-24 12:04] LABS: HGB - HEMOGLOBIN 7.8 g/dL (14.0-18.0); MEAN CORPUSCULAR HEMOGLOBIN 25.9 pg (27.0-31.0); MEAN CORPUSCULAR HGB CONC 30.5 g/dL (32.0-36.0); MEAN PLATELET VOLUME 9.9 fL (7.4-11.4); RED BLOOD COUNT 3.01 10^6/uL (4.70-6.10); RED CELL DISTRIBUTION WIDTH 23.9 % (12.0-15.0); WHITE BLOOD COUNT 13.9 x10^3/uL (4.8-10.8)
--- NOTE | 2019-04-24 16:51 | Discharge Plan ---
Discharge Plan Problem Reviewed?: Yes Disposition: 02 Transfer Acute Care Hosp Condition: Serious No Smoking: If you smoke, Please STOP! Call for help. Follow-up with: Luly Sosa DO [Primary Care Provider] -
[2019-04-24] MEDS: GABAPENTIN 100 MG CAPSULE PO SCH (20:57)
[2019-04-24] MEDS ORDERED: ATORVASTATIN 40 MG TABLET PO SCH (21:00)
[2019-04-25 00:12] VITALS: BP 159/77
[2019-04-25] MEDS ORDERED: LOSARTAN 50 MG TABLET PO SCH (09:00)
[2019-04-25] MEDS ORDERED: hydroCHLOROthiazide 12.5 MG CAPSULE PO SCH (09:00)
--- NOTE | 2019-05-01 08:39 | DISCHARGE SUMMARY ---
"Discharge Summary Admit Date: 04/22/19 Discharge Date: 04/24/19 Discharging Provider: Dr Sheron Courtney Primary Care Provider: Dr Luly Sosa Code Status: Attempt Resuscitation Condition at Discharge: Serious Discharge Disposition: 02 Transfer Acute Care Hosp Discharge Facility Name: [facility] - DIAGNOSES Admission Diagnoses: 1) Anemia, severe 2) Thrombocytopenia 3) Dyspnea 4) Acute on chronic kidney disease 5) Morbid Obesity, BMI >50 6) Hx of OMERO Discharge Diagnoses with Status of Each Condition: See below - HPI History of Present Illness: From the Admission H&P of Dr Ammon Moulton: This is a 74 year old male with a past medical history significant for paroxysmal atrial fibrillation, hypertension, COPD (on 2.5L), CKD, and OMERO on CPAP who presents from home complaining of worsening shortness of breath over the past 2-3 weeks. He reports feeling short of breath over the last few weeks that has progressed daily and today he sought medical attention. He does not report a cough but describes feeling feverish and having chills. He denies chest pain but reports fatigue, weakness, tremors that have all began over the last few days. He has also had poor appetite and believes that he may have lost some weight but he has difficulty checking his weight as he is unable to stand on a scale for a long enough of a time to obtain a weight. He reports that about 5-6 years ago, he did have an episode where his hemoglobin was low, in the 4-5 range, and he required multiple transfusions. He was told he was anemic at that time because of kidney failure. He did have a period of time where he had significant acute kidney injury and required hemodialysis for 6 weeks. He reports no recent bleeding. Denies tarry stools, hematuria, hemoptysis. He denies any new medications recently except for a diuretic. He had a colonoscopy and EGD about 6 years ago. Colonoscopy had one hyperplastic polyp and EGD was unremarkable. In the emergency department, he was hemoynaically stable with a blood pressure in the 120's-130's systolic, and heart rate in the 80's. He was saturating 100% on 2L NC. Labs were significant for a hemoglobin of 2.7, platelets of 50, creatinine of 1.9, and lactic of 3.8. Chest x-ray with mild vascular congestion. CTA of the chest was negative for PE although it was a not a great study due to suboptimal contrast timing. EKG showed sinus rhythm without ischemic changes. Troponin was negative. He was admitted to the ICU for further management. He would like to be a full code at this time. - CONSULTS | PROCEDURES Consultations: The case was discussed with Dr Aponte ([facility] Program Coordinator) - HOSPITAL COURSE Hospital Course: 1) Iron deficiency anemia, severe, with low retic count Transfusion of 3 units PRBCs was ordered and Hemologobin shiloh only to 3.8. He received a total of 7U PRBCs, and Hgb shiloh to 7.8. There appeared to be no signs of active bleedinga and it appeared to be a chronic process and not an acute hemorrhage, given his hemodynamic stability and low MCV. His reticuloycte count was 0.3 which is very low and concerning for bone marrow failure as this is not an appropriate response. He was a little dyspneic and therefore got Lasix IV between some transfusions. He also got 1U of FFP. Since the patient was admitted on a weekend, and desired Hematology follow-up here at the [facility] Clinic, on that following Wednesday, I discuss with Dr Aponte in [facility] Hematology clinic, regarding further approach to diagnosis. He advised a bone marrow biopsy. The surgeon who performs this here, was out of town. Dr Aponte advised that I request the Pathologist from [place] to do the marrow biopsy, but he was also out of town. Dr Aponte then advised that the patient be transferred to [facility] and the patient was kindly accepted by the Hospitalist at [facility]. 2) Thrombocytopenia He also had thrombocytopenia and his platelet count decreased from 50K to 27K. There were no signs of bleeding. He received 2U of platelets by transfusion and plts improved to 77K. He was on mechanical DVT prophylaxis while here. 3) Acute on chronic kidney disease His creat slightly improved from 1.9 to 1.6 with volume replacement from the transfusions. He got Lasix iv for dyspnea. This may be acute kidney injury or progression of his CKD (our most recent previous lab results are from last year). Urine output was adequate while here. 4) Chronic respiratory failure with hypoxia He required his baseline 2L of supplemental oxygen. He was not hypoxic but was feeling dyspneic, needed the Lasix and his home BIPAP device was used at bedtime and prn during the daytime. He also got Budesonide and Albuterol PRN 5) Paroxysmal Afib He was in sinus rhythm during this hospitalization, and became tachycardic on the second day, likely because he did not receiving his home Cardizem dose, which was then resumed. Anticoagulants and antiplatelet agents were avoided. 6) HTN He became hypertensive likely due to the amount of volume he has received secondary to the PRBC tranfusions and being off of his antihypertensives. Therefore we resumed Cardizem and HCTZ, but Losartan remained on hold due to potential MALGORZATA. 7) Morbid obesity, BMI 55 He was requesting a scooter and special recliner for home and was told those need to ordered by his PCP, with outpatient follow-ups. - ALLERGIES Allergies/Adverse Reactions: Allergies Allergy/AdvReac Type Severity Reaction Status Date / Time ranitidine HCl * Allergy Unknown Rash Verified 04/22/19 13:45 [From Zantac] - MEDICATIONS Home Medications: Ambulatory Orders Medication Instructions Recorded Confirmed Omeprazole 40 mg PO DAILY 03/06/13 04/22/19 Aspirin [Aspir-Shannen] 325 mg PO DAILY 01/17/14 04/22/19 Atorvastatin Calcium 40 mg PO QPM 04/22/19 04/22/19 Diltiazem HCl [Diltiazem ER] 180 mg PO DAILY 04/22/19 04/22/19 Fluticasone Propion/Salmeterol 1 each IH BID 04/22/19 04/22/19 [Fluticasone-Salmeterol 500-50] Gabapentin [Neurontin] 100 mg PO QPM 04/22/19 04/22/19 HYDROcod/ACETAM 5/325 [[place] 5/325] 1 - 2 ea PO Q4H PRN 04/22/19 04/22/19 Ipratropium/Albuterol [Duoneb] 3 ml INH Q6H 04/22/19 04/22/19 Losartan/Hydrochlorothiazide 1 each PO DAILY 04/22/19 04/22/19 [Losartan-Hctz 50-12.5 mg Tab] Furosemide 40 mg PO DAILY 04/24/19 04/24/19 - PHYSICAL EXAM AT DISCHARGE General Appearance: positive: Mild distress Eyes Bilateral: positive: Normal inspection ENT: positive: Other (Wearing suppplemental oxygen by n.c.) Neck: positive: Other (Obese) Respiratory: positive: Breath sounds nml Cardiovascular: positive: Regular rate & rhythm, Other (Distant heart sounds) Rectal: positive: Non-tender, Other (Obese with a pannus) Skin: positive: Pallor Extremities: positive: Other (1+ edema) Neurologic/Psychiatric: positive: Oriented x3, Other (Grossly intact) - LABS Result Diagrams: 04/24/19 11:50 04/24/19 06:10 - DIAGNOSTIC IMAGING Diagnostic Imaging Results: Final report reviewed - FOLLOW UP Follow Up: This will be determined after his discharge from [facility] - TIME SPENT Time Spent in Discharge (Minutes): 80"
== END 2019-04-25 01:16 | disposition short-term general hospital (02) | DRG 812 ==
LOC: EDUNIT# → ED 13:34 → ICU 17:04
PROVIDERS: ADMIT Internal Medicine; ATTEND Internal Medicine
PROC: 06HN33Z Insertion of Infusion Device into Left Femoral Vein, Percutaneous Approach (ICD-10-PCS; 2019-04-22)
PROC: 30233K1 Transfusion of Nonautologous Frozen Plasma into Peripheral Vein, Percutaneous Approach (ICD-10-PCS; principal; 2019-04-23)
PROC: 30243N1 Transfusion of Nonautologous Red Blood Cells into Central Vein, Percutaneous Approach (ICD-10-PCS; 2019-04-23)
DX: D50.9 Iron deficiency anemia, unspecified (principal); J44.9 Chronic obstructive pulmonary disease, unspecified; I95.9 Hypotension, unspecified; I87.8 Other specified disorders of veins; I10 Essential (primary) hypertension; I48.91 Unspecified atrial fibrillation; I25.2 Old myocardial infarction; Z68.43 Body mass index [BMI] 50.0-59.9, adult; Z95.5 Presence of coronary angioplasty implant and graft; J96.11 Chronic respiratory failure with hypoxia; E87.2 Acidosis; D69.6 Thrombocytopenia, unspecified; I12.9 Hypertensive chronic kidney disease with stage 1 through stage 4 chronic kidney disease, or unspecified chronic kidney disease; N18.9 Chronic kidney disease, unspecified; E66.01 Morbid (severe) obesity due to excess calories; G47.33 Obstructive sleep apnea (adult) (pediatric); I48.0 Paroxysmal atrial fibrillation; Z99.81 Dependence on supplemental oxygen; Z79.899 Other long term (current) drug therapy; Z87.19 Personal history of other diseases of the digestive system; Z87.891 Personal history of nicotine dependence; Z79.82 Long term (current) use of aspirin; Z79.51 Long term (current) use of inhaled steroids
CPT/HCPCS: 36415; 71045; 71275; 80048; 80053; 81003; 82040; 82274; 82310; 82607; 82668; 82728; 82803; 83036; 83540; 83605; 83615; 83690; 83735; 83880; 84100; 84132; 84443; 84466; 84484; 85025; 85027; 85044; 85610; 86850; 86900; 86901; 86920; 87040; 87150; 93005; 94640; 94660; 96360; 99284; 99285; A6250; A9270; J7626; P9016; P9017; P9035; Q9967; 81001; 85014; 85018; 87086

== ENCOUNTER 2019-05-04 10:17 | Outpatient (CLI) | payer MEDICARE ==
[2019-05-04 12:56] LABS: ABSOLUTE RETICS # AUTO 0.147 10^6/uL (0.020-0.110); BASOPHILS # (AUTO) 0.1 10^3/uL (0.0-0.1); BASOPHILS % (AUTO) 0.7 %; EOSINOPHILS # (AUTO) 0.1 10^3/uL (0.0-0.7); EOSINOPHILS % (AUTO) 1.2 %; HGB - HEMOGLOBIN 8.3 g/dL (14.0-18.0); LYMPHOCYTES # (AUTO) 1.6 10^3/uL (1.5-3.5); LYMPHOCYTES % (AUTO) 13.5 %; MEAN CORPUSCULAR HEMOGLOBIN 25.4 pg (27.0-31.0); MEAN CORPUSCULAR HGB CONC 28.3 g/dL (32.0-36.0); MEAN CORPUSCULAR VOLUME 89.6 fL (80.0-94.0); MEAN PLATELET VOLUME 9.4 fL (7.4-11.4); MONOCYTES # (AUTO) 1.1 10^3/uL (0.0-1.0); MONOCYTES % (AUTO) 9.7 %; NEUTROPHILS # (AUTO) 8.7 10^3/uL (1.5-6.6); NEUTROPHILS % (AUTO) 74.4 %; PLT - PLATELET COUNT 725 10^3/uL (130-450); RED BLOOD COUNT 3.27 10^6/uL (4.70-6.10); RED CELL DISTRIBUTION WIDTH 24.7 % (12.0-15.0); WHITE BLOOD COUNT 11.7 x10^3/uL (4.8-10.8)
[2019-05-04 13:27] LABS: FERRITIN 21.7 ng/mL (23.9-336.2)
[2019-05-04 13:30] LABS: FOLATE 11.24 ng/mL (5.90 - >24.8)
[2019-05-04 13:37] LABS: % IRON SATURATION 5 % (20-50); IRON 21 ug/dL (45-182); TOTAL IRON BINDING CAPACITY 402 ug/dL (250-450); TRANSFERRIN 287 mg/dL (180-329)
[2019-05-04 13:52] LABS: PLATELET ESTIMATE, MANUAL INCREASED (>450,000) (NORMAL)
== END 2019-05-04 23:59 | disposition home or self-care (01) ==
LOC: LAB.N 10:17
PROVIDERS: ATTEND Physician Assistant Medical
DX: D64.9 Anemia, unspecified (principal)
CPT/HCPCS: 36415; 82607; 82728; 82746; 83540; 84466; 85025; 85044

== ENCOUNTER 2020-05-22 11:23 | Outpatient (CLI) | payer MEDICARE ==
--- NOTE | 2020-05-22 15:37 | XRAY Report ---
PROCEDURE: Shoulder 3 View LT INDICATIONS: L SHOULDER PAIN TECHNIQUE: 3 views of the shoulder were acquired. COMPARISON: None. FINDINGS: Bones: No fractures or dislocations. No suspicious bony lesions. Visualized ribs appear intact. M ild deformity is noted within the mid left clavicle. Suspicious for old fracture. Moderate acromiocla vicular and glenohumeral degenerative narrowing is present. Soft tissues: No suspicious soft tissue calcifications. IMPRESSION: Acromioclavicular and glenohumeral degenerative narrowing. Reviewed by: Deanna Puente MD on 05/22/2020 3:36 PM PDT Approved by: Deanna Puente MD on 05/22/2020 3:36 PM PDT Station ID: [id number]
--- NOTE | 2020-05-22 15:43 | XRAY Report ---
PROCEDURE: Hip w/Pelvis 2-3V RT INDICATIONS: L SHOULDER PAIN RT HIP PAIN TECHNIQUE: AP pelvis with lateral view(s) of the bilateral hip(s). COMPARISON: None. FINDINGS: Bones: No fractures or dislocations. Pelvic ring appears intact. No suspicious bony lesions. Mild to moderate bilateral degenerative osteoarthritic narrowing within the hips. Soft tissues: The visualized bowel gas pattern is normal. No suspicious soft tissue calcifications. IMPRESSION: Mild to moderate bilateral hip osteoarthritis. Reviewed by: Deanna Puente MD on 05/22/2020 3:42 PM PDT Approved by: Deanna Puente MD on 05/22/2020 3:42 PM PDT Station ID: [id number]
== END 2020-05-22 11:24 | disposition home or self-care (01) ==
LOC: DI 11:23
PROVIDERS: ATTEND Nurse Practitioner
DX: M19.012 Primary osteoarthritis, left shoulder (principal); M16.0 Bilateral primary osteoarthritis of hip

== ENCOUNTER 2020-07-30 10:56 | Outpatient (CLI) | payer MEDICARE ==
[2020-07-30 18:37] LABS: BASOPHILS # (AUTO) 0.1 10^3/uL (0.0-0.1); BASOPHILS % (AUTO) 0.9 %; EOSINOPHILS # (AUTO) 0.3 10^3/uL (0.0-0.7); EOSINOPHILS % (AUTO) 3.3 %; HGB - HEMOGLOBIN 12.3 g/dL (14.0-18.0); LYMPHOCYTES # (AUTO) 2.1 10^3/uL (1.5-3.5); LYMPHOCYTES % (AUTO) 27.2 %; MEAN CORPUSCULAR HEMOGLOBIN 28.9 pg (27.0-31.0); MEAN CORPUSCULAR HGB CONC 30.1 g/dL (32.0-36.0); MEAN CORPUSCULAR VOLUME 95.8 fL (80.0-94.0); MEAN PLATELET VOLUME 10.2 fL (7.4-11.4); MONOCYTES # (AUTO) 0.5 10^3/uL (0.0-1.0); MONOCYTES % (AUTO) 6.5 %; NEUTROPHILS # (AUTO) 4.7 10^3/uL (1.5-6.6); NEUTROPHILS % (AUTO) 61.7 %; PLT - PLATELET COUNT 264 10^3/uL (130-450); RED BLOOD COUNT 4.26 10^6/uL (4.70-6.10); RED CELL DISTRIBUTION WIDTH 14.1 % (12.0-15.0); WHITE BLOOD COUNT 7.7 x10^3/uL (4.8-10.8)
[2020-07-30 18:56] LABS: ALBUMIN 3.6 g/dL (3.2-5.5); ALBUMIN/GLOBULIN RATIO 0.8 (1.0-2.2); BILIRUBIN,TOTAL 0.6 mg/dL (0.2-1.0); CALCIUM 8.9 mg/dL (8.5-10.3); CREATININE 1.4 mg/dL (0.6-1.2); TOTAL PROTEIN 8.2 g/dL (6.7-8.2)
[2020-07-30 20:00] LABS: HEMOGLOBIN A1c% 11.5 % (4.27-6.07)
== END 2020-07-30 10:57 | disposition home or self-care (01) ==
LOC: LAB.N 10:56
PROVIDERS: ATTEND Family Medicine
DX: E11.22 Type 2 diabetes mellitus with diabetic chronic kidney disease (principal); N18.30 Chronic kidney disease, stage 3 unspecified; D61.818 Other pancytopenia; D64.9 Anemia, unspecified
CPT/HCPCS: 36415; 80053; 82043; 83036; 85025

== ENCOUNTER 2020-12-02 07:00 | Outpatient (CLI) | payer MEDICARE | END 2020-12-02 23:59 | disposition home or self-care (01) | LOC: COV 07:00 | PROVIDERS: ATTEND Physician Assistant | DX: Z01.812 Encounter for preprocedural laboratory examination (principal); Z20.822 Contact with and (suspected) exposure to COVID-19 ==

== ENCOUNTER 2021-02-12 08:00 | Outpatient (CLI) | payer MEDICARE ==
[2021-02-12 18:07] LABS: BASOPHILS % (AUTO) 0.5 %; EOSINOPHILS # (AUTO) 0.2 10^3/uL (0.0-0.7); EOSINOPHILS % (AUTO) 1.8 %; HCT - HEMATOCRIT 38.8 % (42.0-52.0); HGB - HEMOGLOBIN 11.5 g/dL (14.0-18.0); LYMPHOCYTES # (AUTO) 2.1 10^3/uL (1.5-3.5); LYMPHOCYTES % (AUTO) 26.4 %; MEAN CORPUSCULAR HEMOGLOBIN 28.6 pg (27.0-31.0); MEAN CORPUSCULAR HGB CONC 29.6 g/dL (32.0-36.0); MEAN CORPUSCULAR VOLUME 96.5 fL (80.0-94.0); MEAN PLATELET VOLUME 10.1 fL (7.4-11.4); MONOCYTES # (AUTO) 0.6 10^3/uL (0.0-1.0); MONOCYTES % (AUTO) 7.1 %; NEUTROPHILS # (AUTO) 5.2 10^3/uL (1.5-6.6); NEUTROPHILS % (AUTO) 63.8 %; PLT - PLATELET COUNT 287 10^3/uL (130-450); RED BLOOD COUNT 4.02 10^6/uL (4.70-6.10); WHITE BLOOD COUNT 8.1 x10^3/uL (4.8-10.8)
[2021-02-12 18:17] LABS: ALBUMIN 3.9 g/dL (3.2-5.5); ALBUMIN/GLOBULIN RATIO 0.9 (1.0-2.2); BILIRUBIN,TOTAL 0.5 mg/dL (0.2-1.0); CALCIUM 8.5 mg/dL (8.5-10.3); CREATININE 1.6 mg/dL (0.6-1.2); POTASSIUM 3.6 mmol/L (3.5-5.0); TOTAL PROTEIN 8.3 g/dL (6.7-8.2)
[2021-02-12 20:23] LABS: ESTIMATED AVERAGE GLUCOSE 143 mg/dL (70-100); HEMOGLOBIN A1c% 6.6 % (4.27-6.07)
== END 2021-02-12 23:59 | disposition home or self-care (01) ==
LOC: LAB.WCP 08:00
PROVIDERS: ATTEND Family Medicine
DX: E11.22 Type 2 diabetes mellitus with diabetic chronic kidney disease (principal); N18.30 Chronic kidney disease, stage 3 unspecified; D64.9 Anemia, unspecified
CPT/HCPCS: 36415; 80053; 83036; 85025

== ENCOUNTER 2021-07-17 10:24 | Outpatient (CLI) | payer MEDICARE ==
[2021-07-17 11:13] VITALS: BP 136/66
--- NOTE | 2021-07-17 11:14 | SLEEP CARE CONSULTATION ---
Information from patient questionnaire entered by Alvino Gutierres MA. I have reviewed and concur with the information entered by Alvino Gutierres MA. This document represents the service I personally performed and the decisions made by , Inocencia Medina ARNP. History of Present Illness Service Date and Time: 07/17/2021 1024 Previous diagnosis: Moderate, Obstructive Sleep Apnea-Hypopnea Syndrome AHI: 25.6 ([facility] 2018) Reason for follow up: annual Equipment type: BiPAP Equipment obtained from: [facility] (getting supplies as needed) Mask style: Full face Backup mask available: Yes (old mask) Last cushion change: 6 months ago HPI additional information: MARYSOL SPRINGER was diagnosed to have moderate, AHI 25.6, obstructive sleep apnea- hypopnea syndrome and returned today with spouse for BIPAP therapy annual follow-up. CPAP Compliance Data - Data Reviewed with Patient Average duration of nightly device use: 5 hours 33 minutes Compliance rate %: 98.9 Current pressure setting (cmH2O): 19/ Humidity setting: off Average residual AHI: 7.5 Central apnea: 3.7 Obstructive apnea: 2.7 Average large leak: 12 leaks Subjective Current [place] Sleepiness Scale score: 5 (2020) Physical Exam Vital signs obtained and entered by: Swathi Gutierres CMA AAMA Blood Pressure: 136/66 (right ) Cuff size: wrist Heart Rate: 78 O2 Saturation: 95 (on oxygen tank mask) Height: 5 ft 7 in (info per Pt.) Weight: 320 lb (info per Pt. ) Weight change since last visit: Pt. could not stand on scale. Last weight primary care visit. Body Mass Index: 50.1 BMI Classification: Morbidly Obese Impression and Plan 1. Obstructive Sleep Apnea-Hypopnea Syndrome, moderate, with good treatment compliance and good apnea control. On BIPAP therapy, the patient has better sleep quality and is more rested overall. Patient's main concern is replacing his recalled BIPAP. Patient has already registered their device for the recall. Patient denies any black particles seen in machine or hoses, any unusual odors coming from device. Patient has not experienced any physical symptoms such as upper airway irritation, headache, skin or eye irritation, asthma, nausea/vomiting, difficulty breathing or chest pain. If patient is not able to sleep due to waking up choking, gasping for air or other respiratory distress that they may decide to continue using it until it is either replaced or repaired. Since the patients current machine is at least 5 years old the patient is opting to update their device with a device that is not on the recall. Patient voiced understanding and agreement with plan. Patient's apnea severity and rationale for treatment to reduce apnea, improve sleep quality and reduce cardiovascular and cerebrovascular events was reviewed. I also reviewed the benefit of consistent device use of BIPAP for hypertension and gastric reflux. Patient currently has a BMI of 50.1. Obesity increases the risk of apnea, CPAP pressure requirements and overall health risks especially cardiovascular and diabetes. Thus patient is advised to try to lose weight. Weight loss can be done with reducing portion size, reducing refined foods and balancing content with vegetables, fruit and whole grain foods. In addition, patient encouraged to get regular exercise. The patient's CPAP pressure range should accommodate some weight loss. Symptoms to report for additional pressure adjustment discussed. Patient was encouraged to lose weight for their overall health and to reduce apneas. * Update device * Change BIPAP pressure to 17/9 cmH2O * Notify me if snoring with mask or feeling that the pressure is too much or too little * Attempt to lose weight * Call this office if any problems using BIPAP * Return for follow up one month after obtaining new device, or sooner if concerns arise Counseling Topics: Spare mask, Weight loss health impact Visit Type: In Office Time Spent with Patient (minutes): 24 Provider Statement: I spent 100% of the Face to Face Visit with the patient with greater than 50% spent counseling the patient and coordination of care.
== END 2021-07-17 10:25 | disposition home or self-care (01) ==
LOC: SC 10:24
PROVIDERS: ATTEND Nurse Practitioner Family
DX: G47.33 Obstructive sleep apnea (adult) (pediatric) (principal); E66.01 Morbid (severe) obesity due to excess calories; Z68.43 Body mass index [BMI] 50.0-59.9, adult
CPT/HCPCS: 99213; G0463; 99212

== ENCOUNTER 2021-08-19 09:11 | Outpatient (CLI) | payer MEDICARE | END 2021-08-19 09:12 | disposition critical access hospital (66) | LOC: EMS 09:11 | DX: R06.00 Dyspnea, unspecified (principal) | CPT/HCPCS: A0425; A0427 ==

== ENCOUNTER 2021-08-19 09:23 | Inpatient (IN) | payer MEDICARE ==
[2021-08-19] MEDS ORDERED: ALBUTEROL NEB 2.5 MG/3 ML INH STA (09:27)
[2021-08-19 10:17] LABS: BASOPHILS % (AUTO) 0.3 %; EOSINOPHILS % (AUTO) 0.2 %; HCT - HEMATOCRIT 36.6 % (42.0-52.0); HGB - HEMOGLOBIN 10.8 g/dL (14.0-18.0); LYMPHOCYTES # (AUTO) 1.3 10^3/uL (1.5-3.5); LYMPHOCYTES % (AUTO) 10.8 %; MEAN CORPUSCULAR HEMOGLOBIN 27.1 pg (27.0-31.0); MEAN CORPUSCULAR HGB CONC 29.5 g/dL (32.0-36.0); MEAN PLATELET VOLUME 9.2 fL (7.4-11.4); MONOCYTES % (AUTO) 8.4 %; NEUTROPHILS # (AUTO) 9.8 10^3/uL (1.5-6.6); NEUTROPHILS % (AUTO) 78.9 %; NRBC ABSOLUTE COUNT (AUTO) 0.07 x10^3/uL; NUCLEATED RED BLOOD CELLS AUTO 0.6 /100WBC; PLT - PLATELET COUNT 387 10^3/uL (130-450); RED BLOOD COUNT 3.98 10^6/uL (4.70-6.10); RED CELL DISTRIBUTION WIDTH 16.3 % (12.0-15.0); WHITE BLOOD COUNT 12.4 x10^3/uL (4.8-10.8)
[2021-08-19] MEDS ORDERED: ETOMIDATE 40 MG/20 ML VIAL IVP STA ×2 (10:19→11:07)
--- NOTE | 2021-08-19 10:19 | ED Physician Documentation ---
PD HPI DYSPNEA - Stated complaint Stated Complaint: SOA - Chief complaint Chief Complaint: Resp - History obtained from History obtained from: EMS - Additional information Additional information: 76-year-old gentleman with history of oxygen dependent COPD, morbid obesity, chronic kidney disease, chronic anemia was diagnosed with Covid 2 weeks ago. Reportedly has had on and off respiratory distress since then and had sats in the 50s this morning. History is limited from the patient due to respiratory distress. Prehospital he received 2 DuoNeb's and maximum saturations on 100% nonrebreather were in the mid 80s. Per by phone positive for covid 2 weeks ago and neg 2 days ago. Agrees with full code. Review of Systems Unable to obtain: Other (Limited by respiratory distress) PD PAST MEDICAL HISTORY - Past Medical History Cardiovascular: Hypertension, High cholesterol, Atrial fibrillation Respiratory: COPD, Sleep apnea, CPAP use Neuro: None Endocrine/Autoimmune: Type 2 diabetes GI: GERD : Renal insuffiency HEENT: None Psych: None Musculoskeletal: Osteoarthritis Derm: None - Past Surgical History Past Surgical History: Yes General: Appendectomy Ortho: Knee replacement HEENT: Cataracts, Tonsil/Adenoidectomy - Present Medications Home Medications: Ambulatory Orders Medication Instructions Recorded Confirmed Omeprazole 40 mg PO DAILY 03/06/13 06/25/21 Aspirin [Aspir-Shannen] 325 mg PO DAILY 01/17/14 06/25/21 Atorvastatin Calcium 40 mg PO QPM 04/22/19 06/25/21 Diltiazem HCl [Diltiazem ER] 180 mg PO DAILY 04/22/19 06/25/21 Gabapentin [Neurontin] 100 mg PO QPM 04/22/19 06/25/21 Ipratropium/Albuterol [Duoneb] 3 ml INH Q6H 04/22/19 06/25/21 Furosemide 80 mg PO BID 04/24/19 06/25/21 Fluticasone/Salmeterol [Advair 1 each INH BID 05/31/19 06/25/21 500-50 Diskus] Potassium Chloride 20 meq ORAL BID 05/31/19 06/25/21 Losartan Potassium [Cozaar] 50 mg PO DAILY 09/13/20 06/25/21 Insulin Glargine [Lantus Solostar] 58 unit IM DAILY 10/09/20 06/25/21 Potassium Chloride [K-Dur] 20 meq PO BID 08/19/21 metFORMIN [Glucophage] 500 mg PO BID 08/19/21 - Allergies Allergies/Adverse Reactions: Allergies Allergy/AdvReac Type Severity Reaction Status Date / Time ranitidine HCl * Allergy Unknown Rash Verified 08/19/21 09:33 [From Zantac] - Social History Does the pt smoke?: No Smoking Status: Former smoker Does the pt drink ETOH?: No Does the pt have substance abuse?: No - Immunizations Immunizations are current?: Yes - POLST Patient has POLST: No POLST Status: Full Code PD ED PE NORMAL - Vitals Vital signs reviewed: Yes - General General: Other (He has significant respiratory distress, he is moaning, able to answer simple questions) - HEENT HEENT: PERRL, EOMI - Neck Neck: Supple, no meningeal sign, No bony TTP - Cardiac Cardiac: Other (Rapid and regular, no clear murmur but limited by respiratory sounds) - Respiratory Respiratory: Other (Diminished throughout, tachypneic) - Abdomen Abdomen: Soft, Non tender - Back Back: No CVA TTP, No spinal TTP - Derm Derm: Other ([place]) - Neuro Neuro: Alert and oriented X 3 Results - Vitals Vitals: Vital Signs - 24 hr 08/19/21 08/19/21 08/19/21 09:33 09:59 10:20 Temperature 36.5 C Heart Rate 124 H 122 H 128 H Respiratory 32 H 26 H Rate Blood Pressure 176/127 H 169/129 H O2 Saturation 93 97 08/19/21 08/19/21 08/19/21 10:26 10:56 11:00 Temperature 36.8 C Heart Rate 128 H 120 H 117 H Respiratory 31 H 31 H 32 H Rate Blood Pressure 227/200 H 92/56 L O2 Saturation 97 87 L 08/19/21 08/19/21 11:34 11:42 Temperature Heart Rate 121 H 121 H Respiratory 22 22 Rate Blood Pressure 73/42 L 82/47 L O2 Saturation 92 93 Oxygen O2 Source Mechanical ventilator - EKG (time done) 1128 Rate: Rate (enter#) (119) Rhythm: Sinus tachycardia [place]: Normal Intervals: Normal MN, Prolonged QT Ischemia: Q waves (inferior) - Labs Labs: Laboratory Tests 08/19/21 08/19/21 08/19/21 10:05 10:05 10:05 WBC 12.4 H RBC 3.98 L Hgb 10.8 L Hct 36.6 L MCV 92.0 MCH 27.1 MCHC 29.5 L RDW 16.3 H Plt Count 387 MPV 9.2 Neut # (Auto) 9.8 H Lymph # (Auto) 1.3 L [place] # (Auto) 1.0 Eos # (Auto) 0.0 Baso # (Auto) 0.0 Absolute Nucleated RBC 0.07 Nucleated RBC % 0.6 D-Dimer Sodium 130 L Potassium 4.8 Chloride 94 L Carbon Dioxide 25 Anion Gap 11.0 BUN 39 H Creatinine 2.5 H Estimated GFR (MDRD) 25 L Glucose 157 H Lactic Acid Calcium 7.5 L Phosphorus 2.5 Total Bilirubin 0.9 AST 41 ALT 23 Alkaline Phosphatase 70 Troponin I High Sens 11.4 B-Natriuretic Peptide Total Protein 7.5 Albumin 2.9 L Globulin 4.6 H Albumin/Globulin Ratio 0.6 L Nasal Adenovirus (PCR) Nasal B. parapertussis DNA (PCR) Nasal Coronavir 229E PCR Nasal Coronavir HKU1 PCR Nasal Coronavir NL63 PCR Nasal Coronavir OC43 PCR Nasal Enterovir/Rhinovir PCR Nasal Influenza B PCR Nasal Influenza A PCR Nasal Parainfluen 1 PCR Nasal Parainfluen 2 PCR Nasal Parainfluen 3 PCR Nasal Parainfluen 4 PCR Nasal RSV (PCR) Nasal B.pertussis DNA PCR Nasal C.pneumoniae (PCR) Richy Human Metapneumo PCR Nasal M.pneumoniae (PCR) Nasal SARS-CoV-2 (PCR) 08/19/21 08/19/21 08/19/21 10:05 10:05 10:15 WBC RBC Hgb Hct MCV MCH MCHC RDW Plt Count MPV Neut # (Auto) Lymph # (Auto) [place] # (Auto) Eos # (Auto) Baso # (Auto) Absolute Nucleated RBC Nucleated RBC % D-Dimer Sodium Potassium Chloride Carbon Dioxide Anion Gap BUN Creatinine Estimated GFR (MDRD) Glucose Lactic Acid 1.3 Calcium Phosphorus Total Bilirubin AST ALT Alkaline Phosphatase Troponin I High Sens B-Natriuretic Peptide 54 Total Protein Albumin Globulin Albumin/Globulin Ratio Nasal Adenovirus (PCR) NOT DETECTED Nasal B. parapertussis DNA (PCR) NOT DETECTED Nasal Coronavir 229E PCR NOT DETECTED Nasal Coronavir HKU1 PCR NOT DETECTED Nasal Coronavir NL63 PCR NOT DETECTED Nasal Coronavir OC43 PCR NOT DETECTED Nasal Enterovir/Rhinovir PCR DETECTED A Nasal Influenza B PCR NOT DETECTED Nasal Influenza A PCR NOT DETECTED Nasal Parainfluen 1 PCR NOT DETECTED Nasal Parainfluen 2 PCR NOT DETECTED Nasal Parainfluen 3 PCR NOT DETECTED Nasal Parainfluen 4 PCR NOT DETECTED Nasal RSV (PCR) NOT DETECTED Nasal B.pertussis DNA PCR NOT DETECTED Nasal C.pneumoniae (PCR) NOT DETECTED Richy Human Metapneumo PCR NOT DETECTED Nasal M.pneumoniae (PCR) NOT DETECTED Nasal SARS-CoV-2 (PCR) DETECTED A 08/19/21 10:41 WBC RBC Hgb Hct MCV MCH MCHC RDW Plt Count MPV Neut # (Auto) Lymph # (Auto) [place] # (Auto) Eos # (Auto) Baso # (Auto) Absolute Nucleated RBC Nucleated RBC % D-Dimer 1029.0 H Sodium Potassium Chloride Carbon Dioxide Anion Gap BUN Creatinine Estimated GFR (MDRD) Glucose Lactic Acid Calcium Phosphorus Total Bilirubin AST ALT Alkaline Phosphatase Troponin I High Sens B-Natriuretic Peptide Total Protein Albumin Globulin Albumin/Globulin Ratio Nasal Adenovirus (PCR) Nasal B. parapertussis DNA (PCR) Nasal Coronavir 229E PCR Nasal Coronavir HKU1 PCR Nasal Coronavir NL63 PCR Nasal Coronavir OC43 PCR Nasal Enterovir/Rhinovir PCR Nasal Influenza B PCR Nasal Influenza A PCR Nasal Parainfluen 1 PCR Nasal Parainfluen 2 PCR Nasal Parainfluen 3 PCR Nasal Parainfluen 4 PCR Nasal RSV (PCR) Nasal B.pertussis DNA PCR Nasal C.pneumoniae (PCR) Richy Human Metapneumo PCR Nasal M.pneumoniae (PCR) Nasal SARS-CoV-2 (PCR) Procedures - Intubation Provider: Emergency physician Medications: Etomidate (20mg IVP), Rocuronium (50mg IVP) Blade: Glidescope Tube: Size-enter number (7.5), Cuffed Route: Oral Confirmation: Direct visualization, Bilateral breath sounds, End tidal CO2, Pulse ox Complications: No compications - Central Line Central Line Preparation: Consent Obtained, Time out completed, Ultrasound used, Sterile prep and drape Central line location: Left IJ (unable, see note), Right Femoral Central line type: Triple lumen Central line aftercare: Chlorhexidine disc placed, Secured, Pt tolerated well PD MEDICAL DECISION MAKING - ED course ED course: 76-year-old gentleman with recent Covid presents with respiratory distress and profound hypoxemia. He was attended to immediately. He wants to be full code, but history was otherwise limited due to his respiratory distress. He was difficult for IV access, paramedics could not place an IV and the nurse was unable to rapidly place an IV so I placed a central line. I initially looked at the ultrasound of the right neck, but I could not identify the IJ due to either anatomic abnormalities or body habitus. I was able to identify the IJ on the left, but despite getting in the vein multiple times the wire would not thread, the blockage was not in the needle it was about 10 cm in. Eventually got IV access with a central line in the right groin. His saturations did improve on BiPAP but remained quite distressed. As such the decision was made to intubate him which was technically easy. He does not have much pulmonary reserve and did have some desaturations. Intubation, and required high vent settings. Sedatives were ordered and Lovenox full dose as well for high D-dimer in the setting of Covid. Discussed again with the and offered transfer to a tertiary facility but discussed with her that the prognosis is grave regardless. She would like him admitted here. Spoke with Dr. Vicente for admission at 11:45 AM. Patient did receive Rocephin and Zithromax IV after blood cultures for potentially occult pneumonia noting he has an elevated white count. Chest x-ray was read as consistent with CHF but given the low BNP and fairly flat veins on ultrasound I suspect he is actually hypovolemic and the changes on chest x-ray are related to the Covid pneumonia. - Critical Care Time(min): 85 Time Includes: Direct patient care, Review records, Reassess patient, Document care, Coordinate care, Medical consult, Family consult for [facility] Data interpretation: Labs, Pulse ox, ABG, CXR Procedures excluded from critical care time: Central IV, Intubation, EKG Departure - Departure Disposition: 66 [facility] DC/Xfer Clinical Impression: Acute kidney injury superimposed on CKD, Pneumonia due to COVID-19 virus, Respiratory failure Condition: Critical
[2021-08-19] MEDS ORDERED: ROCURONIUM 50 MG/5 ML VIAL IVP STA (10:20)
[2021-08-19] MEDS ORDERED: cefTRIAXone 2 GM in SODIUM CHLORIDE 0.9% MINIBAG 100 ML IV STA (10:28)
[2021-08-19] MEDS ORDERED: AZITHROMYCIN INJ 500 MG in SODIUM CHLORIDE 0.9% 250 ML IV STA (10:28)
[2021-08-19] MEDS ORDERED: methylPREDNISolone SUCCINATE 125 MG/2 ML VIAL IVP STA (10:28)
[2021-08-19 10:35] LABS: ALBUMIN 2.9 g/dL (3.2-5.5); ALBUMIN/GLOBULIN RATIO 0.6 (1.0-2.2); BILIRUBIN,TOTAL 0.9 mg/dL (0.2-1.0); CALCIUM 7.5 mg/dL (8.5-10.3); CREATININE 2.5 mg/dL (0.6-1.2); PHOSPHORUS 2.5 mg/dL (2.5-4.6); POTASSIUM 4.8 mmol/L (3.5-5.0); TOTAL PROTEIN 7.5 g/dL (6.7-8.2)
--- NOTE | 2021-08-19 10:44 | XRAY Report ---
PROCEDURE: Chest 1 View X-Ray INDICATIONS: SHORT OF AIR TECHNIQUE: One view of the chest was acquired. COMPARISON: CXR 04/24/2019. FINDINGS: Surgical changes and devices: None. Lungs and pleura: No significant pleural effusions identified. No pneumothorax. Diffuse increased in terstitial markings. This is more prominent compared to the prior CXR from 2019. Mediastinum: Mediastinal contours appear unchanged. Heart size is enlarged. Bones and chest wall: No suspicious bony lesions. Overlying soft tissues appear unremarkable. IMPRESSION: Findings most consistent with moderate/severe fluid overload/CHF. Prominent heart size. Reviewed by: Sebas Franklin MD on 08/19/2021 10:43 AM [facility] Approved by: Sebas Franklin MD on 08/19/2021 10:43 AM [facility] Station ID: [id number]
[2021-08-19] MEDS ORDERED: VECURONIUM 10 MG VIAL IVP STA (11:07)
[2021-08-19] MEDS: PROPOFOL 1000 MG/100 ML 1,000 MG/100 ML BOTTLE IV STA ×2 (11:08→14:10)
[2021-08-19 11:11] LABS: B. PARAPERTUSSIS- RESP PCR PAN NOT DETECTED; B. PERTUSSIS- RESP PCR PANEL NOT DETECTED; C. PNEUMONIAE- RESP PCR PANEL NOT DETECTED; CORONAVIRUS 229E-RESP PCR NOT DETECTED; CORONAVIRUS HKU1-RESP PCR NOT DETECTED; CORONAVIRUS NL63-RESP PCR NOT DETECTED; CORONAVIRUS OC43-RESP PCR NOT DETECTED; HUMAN METAPNEUMOVIRUS NOT DETECTED; INFLUENZA A- RESP PCR PANEL NOT DETECTED; INFLUENZA B - RESP PCR PANEL NOT DETECTED; M. PNEUMONIAE- RESP PCR PANEL NOT DETECTED; PARAINFLUENZA VIRUS 1 NOT DETECTED; PARAINFLUENZA VIRUS 2 NOT DETECTED; PARAINFLUENZA VIRUS 3 NOT DETECTED; PARAINFLUENZA VIRUS 4 NOT DETECTED; RHINOVIRUS/ENTEROVIRUS DETECTED; RSV- RESP PCR PANEL NOT DETECTED
[2021-08-19 11:14] LABS: SARS-CoV-2 -RESP PCR PANEL DETECTED
[2021-08-19] MEDS ORDERED: fentaNYL 2,500 MCG in SODIUM CHLORIDE 0.9% 200 ML IV STA (11:25)
[2021-08-19] MEDS ORDERED: SODIUM CHLORIDE 0.9% 1,000 ML IV STA (11:31)
[2021-08-19] MEDS ORDERED: ENOXAPARIN 150 MG/ML SYRINGE SUBQ STA (11:32)
[2021-08-19] MEDS ORDERED: ONDANSETRON 4 MG/2 ML VIAL IVP PRN (11:45)
[2021-08-19 11:51] LABS: ABG HCO3 25.6 mmol/L (22.0-26.0); ABG PCO2 57 mmHg (34-45); ABG PH 7.27 (7.35-7.45); ABG PO2 59 mmHg (80-100); ABG TCO2 27.4 MMOL/L (21.0-29.0)
--- NOTE | 2021-08-19 11:51 | XRAY Report ---
PROCEDURE: Chest for Line Placement INDICATIONS: post intubation TECHNIQUE: One view of the chest was acquired. COMPARISON: 08/19/2021 at 0956 hours. FINDINGS: Surgical changes and devices: ET tube projects approximately 6.2 cm superior to the [place].. Lungs and pleura: No pleural effusions or pneumothorax. Bilateral lung interstitial prominence and a lveolar opacities with perihilar predominance stable compared to 08/19/2021 at 0956 hours. Mediastinum: Mediastinal contours appear normal. Heart size is normal. Bones and chest wall: No suspicious bony lesions. Overlying soft tissues appear unremarkable. IMPRESSION: ET tube approximately 6.2 cm superior to [place]. Stable CHF/fluid overload. Reviewed by: Kathleen Santos MD, PhD on 08/19/2021 11:49 AM PST Approved by: Kathleen Santos MD, PhD on 08/19/2021 11:49 AM PST Station ID: [id number]
[2021-08-19 11:52] LABS: ABG MODE OF VENTILATION ACVC; ABG RESPIRATORY RATE 24 b/min; ALLEN TEST POSITIVE
[2021-08-19 11:57] LABS: ABG OXYGEN SATURATION 86 % (94-98)
[2021-08-19] MEDS ORDERED: fentaNYL 2,500 MCG in SODIUM CHLORIDE 0.9% 200 ML IV SCH ×2 (12:00→12:25)
--- NOTE | 2021-08-19 12:11 | HISTORY & PHYSICAL EXAMINATION ---
Chief Complaint - Chief Complaint Chief Complaint: Shortness of breath History of Present Illness - Admitted From Admitted From:: Home - History Obtained From Records Reviewed: Yes History obtained from: ER Physician, EMR Exam Limitations: Patient is intubated. - History of Present Illness HPI Comment/Other: This is a 76-year-old male with a past medical history significant for paroxysmal atrial fibrillation, COPD on 2 L of oxygen, CKD, OMERO on CPAP who presented to our emergency room this morning complaining of shortness of breath. History is obtained from the emergency department physician as the patient is intubated and I am unable to reach his as there was no answer when I called. The patient was reportedly diagnosed with Covid about 2 weeks ago. He has been feeling short of breath on and off and EMS was called this morning. Reportedly his oxygen saturations were in the 50s upon their arrival. The [facility] department physician did speak with the patient's and she stated he was diagnosed weeks ago and he had a negative test about 2 days ago. She told him that he is a full code. In the emergency department, he was still hypoxic on nonrebreather. He was then placed on BiPAP but was still in quite a bit of distress and so he was intubated. Chest x-ray suggested CHF. His labs revealed a white count of 12,000. D-dimer was over 1000. His creatinine is elevated at 2.5 compared to his baseline of 1.5. He was given ceftriaxone, azithromycin, Solu-Medrol and 150 mg of Lovenox. Medicine was then consulted for admission. I did call his to try and obtain further information to discuss CODE STATUS but there was no answer. He will be made a full code per the discussion the emergency department physician had with the patient's . I will attempt to call her again. History - Past Medical History Cardiovascular: reports: Hypertension, High cholesterol, Atrial fibrillation Respiratory: reports: COPD, Sleep apnea, CPAP use Neuro: reports: None Endocrine/Autoimmune: reports: Type 2 diabetes GI: reports: GERD : reports: Renal insuffiency HEENT: reports: None Psych: reports: None Musculoskeletal: reports: Osteoarthritis Derm: reports: None MRSA Hx?: No - Past Surgical History General: reports: Appendectomy Ortho: reports: Knee replacement HEENT: reports: Cataracts, Tonsil/Adenoidectomy - Family & Social History Family History Comment/Other: I am unable to update this but review of prior medical records revealed no significant family history. Living arrangement: At home Living Situation: With family Social History Notes: I am unable to update this but review of prior records reveal that he lives here will be on with his . Smoked in the past but quit quite a few years ago. - Substance History Use: Uses substance without health or social issues: NONE - POLST Patient has POLST: No POLST Status: Full Code Meds/Allgy - Home Medications Home Medications: Ambulatory Orders Medication Instructions Recorded Confirmed Omeprazole 40 mg PO DAILY 03/06/13 08/19/21 Aspirin [Aspir-Shannen] 325 mg PO DAILY 01/17/14 08/19/21 Atorvastatin Calcium 40 mg PO QPM 04/22/19 08/19/21 Diltiazem HCl [Diltiazem ER] 180 mg PO DAILY 04/22/19 08/19/21 Gabapentin [Neurontin] 100 mg PO QPM 04/22/19 08/19/21 Ipratropium/Albuterol [Duoneb] 3 ml INH Q6H 04/22/19 08/19/21 Furosemide 80 mg PO BID 04/24/19 08/19/21 Fluticasone/Salmeterol [Advair 1 each INH BID 05/31/19 08/19/21 500-50 Diskus] Insulin Glargine [Lantus Solostar] 0 - 58 unit IM DAILY 10/09/20 08/19/21 Ferrous Gluconate 324 mg PO .[id number] 08/19/21 08/19/21 Losartan [Cozaar] 50 mg PO DAILY 08/19/21 08/19/21 Potassium Chloride [K-Dur] 20 meq PO BID 08/19/21 08/19/21 metFORMIN [Glucophage] 1,000 mg PO DAILY 08/19/21 08/19/21 - Allergies Allergies/Adverse Reactions: Allergies Allergy/AdvReac Type Severity Reaction Status Date / Time ranitidine HCl * Allergy Unknown Rash Verified 08/19/21 09:33 [From Zantac] Review of Systems - All Other Systems All Other Systems: reports: Other (Unable to obtain as he is intubated.) Prior Level of Functionality: It appears he is independent with his ADL's. Exam - Vital Signs Reviewed Vital Signs: Yes Vital Signs: Vital Signs x48h Temp Pulse Resp BP Pulse Ox 08/19/21 12:05 37.2 C 120 H 24 104/53 L 95 08/19/21 12:02 112 H 08/19/21 11:59 122 H 24 108/64 94 08/19/21 11:42 121 H 22 82/47 L 93 08/19/21 11:34 121 H 22 73/42 L 92 08/19/21 11:00 117 H 32 H 92/56 L 87 L 08/19/21 10:56 36.8 C 120 H 31 H 227/200 H 97 08/19/21 10:26 128 H 31 H 08/19/21 10:20 128 H 08/19/21 09:59 36.5 C 122 H 26 H 169/129 H 97 08/19/21 09:33 124 H 32 H 176/127 H 93 - Physical Exam General Appearance: positive: Other (Sedated.) ENT: positive: Other (ET tube in place.) Respiratory: positive: Other (Rhoncorous breath sounds bilaterally.) Cardiovascular: positive: Tachycardia. negative: Irregularly irregular, Systolic murmur Abdomen: positive: Non-tender, No distention, Other (Umbilical hernia noted.) Skin: positive: Dry (Skin is quite dry with sloughed skin throughout.) Extremities: positive: Pedal edema (Trace edema.) Neurologic/Psychiatric: positive: Other (Does not follow commands while sedated.) Conclusion/Plan - Problem List (1) Acute and chronic respiratory failure with hypoxia Conclusion/Plan: Suspect this is secondary to COVID-19 pneumonia. His x-ray reveals bilateral infiltrates and although this is read as CHF, this appears to be less likely given his relatively low BNP and he appears quite dehydrated on exam. He is now intubated and we will place him on the ARDS net protocol. I have asked anesthesia to place an arterial line as he'll require frequent ABGs. We will keep him on antibiotics with doxycycline and ceftriaxone. No azithromycin due to his prolonged QT interval. We will start him on Decadron 6 mg IV daily. We will not start remdesivir given he is already on mechanical ventilation. Continue supportive measures. We will also start him on Lovenox given the sylvia vated D-dimer. We cannot obtain a CT angiogram due to his poor renal function. We will hold the Lovenox this evening so that anesthesia can place a new central line tomorrow as he currently has a femoral central line and I would like to remove this as soon as possible to decrease the potential risk of infection. His overall prognosis is quite guarded. (2) Pneumonia due to COVID-19 virus Conclusion/Plan: This appears to be the cause of his respiratory failure as mentioned above. He was diagnosed 2 weeks ago. PCR panel today is positive. We will continue him on doxycycline and ceftriaxone given his white count is elevated and there could be component of bacterial pneumonia. Start him on Decadron. No remdesivir as he is already on mechanical ventilation. (3) On mechanically assisted ventilation Conclusion/Plan: The plan to sedate him with propofol and fentanyl. If he is still quite hypoxic he may need to be paralyzed. Vent management as per protocol. We will trial the ARDS net protocol and allow permissive hypercapnia. (4) Acute kidney injury superimposed on CKD Conclusion/Plan: He likely has CKD secondary to his diabetes. His baseline creatinine is 1.5 and today it is 2.5. He appears quite dry on exam and to hydrate him with IV fluids and monitor his renal function. Avoid nephrotoxins. (5) Iron deficiency anemia Conclusion/Plan: He has a history of iron deficiency anemia and has been followed by hematology and oncology. His hemoglobin is currently stable. (6) Insulin dependent diabetes mellitus Conclusion/Plan: His blood glucose is currently stable. We'll resume his home Lantus dose but at half given he is n.p.o. We'll monitor his blood glucose closely given he is on steroids. - Lab Results Lab results reviewed: Yes Fish Bones: 08/19/21 10:05 08/19/21 10:05 - Diagnostic Imaging Results Diagnostic Imaging Results: positive: Final report reviewed - EKG Results EKG Interpreted Independently: Yes EKG Comparison: Changed from prior EKG (Compared to his prior EKG, his QT is not prolonged and his heart rate is increased.) EKG Findings: EKG reveals sinus tachycardia with PVC. His QT interval is prolonged Core Measures - Anticipated LOS I expect patient to be DC'd or transferred within 96 hours.: Yes - Issues Hospital Issues and Management Plan: 76-year-old male diagnosed with Covid 2 weeks ago presents with dyspnea found to be hypoxic and is requiring mechanical ventilation. We will admit for IV antibiotics and steroids. Supportive care with ventilator. Overall prognosis is guarded. - DVT/VTE - Prophylaxis VTE/DVT Device ordered at admit?: Yes VTE/DVT Prophylaxis med ordered at admit?: Yes
--- NOTE | 2021-08-19 12:59 | XRAY Report ---
PROCEDURE: Abdomen 1 View X-Ray INDICATIONS: NGT placement TECHNIQUE: 1 view of the abdomen were acquired. COMPARISON: None FINDINGS: Image quality severely limited by patient motion artifact. Surgical changes and devices: NG tube projects across the GE junction with distal tip and side-port p rojecting over the proximal stomach. Bowel: No pneumoperitoneum. The bowel gas pattern is normal. Soft tissues: No masses; visualized solid organ contours appear normal in size. No suspicious abdom inal calcifications. Bones: No suspicious bony abnormalities. IMPRESSION: Image quality severely limited by patient body habitus. NG tube distal tip and side-port project over the proximal stomach, however definitive positioning cannot be confirmed without additional views. Reviewed by: Kathleen Santos MD, PhD on 08/19/2021 12:57 PM PST Approved by: Kathleen Santos MD, PhD on 08/19/2021 12:57 PM PST Station ID: [id number]
[2021-08-19 14:07] LABS: INR 1.4 (0.8-1.2); PT - PROTHROMBIN TIME 15.3 secs (9.9-12.6)
[2021-08-19] MEDS: LACTATED RINGERS 1,000 ML IV SCH ×2 (14:11→22:23)
[2021-08-19] MEDS: PROPOFOL 1000 MG/100 ML 1,000 MG/100 ML BOTTLE IV SCH ×4 (14:25→22:31)
--- NOTE | 2021-08-19 14:45 | PHARMACY PROGRESS NOTE ---
- Best Possible Medication History Admit Date and Time: 08/19/21 1145 Processed by: Pharmacy Medication History completed: Yes Patient Interview: Pt unable to participate As the person ultimately responsible for medication therapy, providers are able to order a medication from an existing home medication list in [facility] via the "Reconcile Routine" prior to Confirmation of that medication by supportability engineer. Such practice is discouraged except when the physician, in their clinical judgment, deems that a medical need exists for a medication without regard to previous use.
[2021-08-19] MEDS: MIDAZOLAM 2 MG/2 ML VIAL IVP ONE (15:26)
[2021-08-19] MEDS ORDERED: SODIUM CHLORIDE 0.9% 500 ML IV ONE (15:59)
[2021-08-19] MEDS: SODIUM CHLORIDE FLUSH 0.9% 10 ML SYRINGE IVP SCH (16:41)
--- NOTE | 2021-08-19 16:57 | CONSULTATION NOTE ---
Consultation Report: consulted to place arterial line for bp monitoring and abg's on this very ill, morbidly obese covid positive patient. #22g left arterial line placed using ultrasound, attempt x1, sterile technique, secured with benzoin, tegederm and tape. wrist restrained placed back on wrist by RN afterward.
[2021-08-19 17:23] LABS: ABG HCO3 24.7 mmol/L (22.0-26.0); ABG PCO2 47 mmHg (34-45); ABG PH 7.34 (7.35-7.45); ABG PO2 78 mmHg (80-100); ABG TCO2 26.2 MMOL/L (21.0-29.0)
[2021-08-19 17:24] LABS: ABG BASE EXCESS -1.2 mmol/L (-2.0-3.0); ABG MODE OF VENTILATION ASSIST/CONTROL; ABG OXYGEN SATURATION 94 % (94-98); ABG RESPIRATORY RATE 28 b/min
[2021-08-19] MEDS: fentaNYL 2,500 MCG/250 ML 2,500 MCG/250 ML BAG IV SCH ×2 (18:45→23:38)
[2021-08-19 20:22] LABS: CALCIUM 7.2 mg/dL (8.5-10.3); CREATININE 2.8 mg/dL (0.6-1.2); POTASSIUM 5.2 mmol/L (3.5-5.0)
[2021-08-19] MEDS: ATORVASTATIN 40 MG TABLET PO SCH (20:47)
[2021-08-19] MEDS: DOXYCYCLINE INJ 100 MG in SODIUM CHLORIDE 0.9% MINIBAG 100 ML IV SCH (20:54)
[2021-08-19] MEDS ORDERED: ENOXAPARIN 150 MG/ML SYRINGE SUBQ SCH (21:00)
[2021-08-19] MEDS: CHLORHEXIDINE GLUCONATE 15 ML UDC PO SCH (22:22)
[2021-08-20] MEDS: SODIUM CHLORIDE FLUSH 0.9% 10 ML SYRINGE IVP SCH ×3 (00:07→17:23)
[2021-08-20] MEDS ORDERED: INSULIN REGULAR HUMAN 300 UNIT/3 ML VIAL SUBQ SCH (00:11)
[2021-08-20] MEDS: PROPOFOL 1000 MG/100 ML 1,000 MG/100 ML BOTTLE IV SCH ×6 (02:19→20:46)
[2021-08-20] MEDS: fentaNYL 2,500 MCG/250 ML 2,500 MCG/250 ML BAG IV SCH ×5 (04:04→21:07)
[2021-08-20 04:37] LABS: ABG BASE EXCESS -3.6 mmol/L (-2.0-3.0); ABG HCO3 21.9 mmol/L (22.0-26.0); ABG OXYGEN SATURATION 88 % (94-98); ABG PCO2 41 mmHg (34-45); ABG PH 7.35 (7.35-7.45); ABG PO2 58 mmHg (80-100); ABG TCO2 23.1 MMOL/L (21.0-29.0); ALLEN TEST POSITIVE
[2021-08-20 04:38] LABS: ABG MODE OF VENTILATION ASSIST/CONTROL; ABG RESPIRATORY RATE 28 b/min
[2021-08-20 04:40] LABS: BASOPHILS % (AUTO) 0.1 %; HCT - HEMATOCRIT 33.7 % (42.0-52.0); HGB - HEMOGLOBIN 10.3 g/dL (14.0-18.0); LYMPHOCYTES # (AUTO) 0.8 10^3/uL (1.5-3.5); LYMPHOCYTES % (AUTO) 7.4 %; MEAN CORPUSCULAR HEMOGLOBIN 27.3 pg (27.0-31.0); MEAN CORPUSCULAR HGB CONC 30.6 g/dL (32.0-36.0); MEAN CORPUSCULAR VOLUME 89.4 fL (80.0-94.0); MEAN PLATELET VOLUME 9.2 fL (7.4-11.4); MONOCYTES # (AUTO) 0.7 10^3/uL (0.0-1.0); MONOCYTES % (AUTO) 7.1 %; NEUTROPHILS # (AUTO) 8.6 10^3/uL (1.5-6.6); NEUTROPHILS % (AUTO) 83.9 %; NRBC ABSOLUTE COUNT (AUTO) 0.29 x10^3/uL; NUCLEATED RED BLOOD CELLS AUTO 2.8 /100WBC; PLT - PLATELET COUNT 484 10^3/uL (130-450); RED BLOOD COUNT 3.77 10^6/uL (4.70-6.10); RED CELL DISTRIBUTION WIDTH 16.1 % (12.0-15.0); WHITE BLOOD COUNT 10.2 x10^3/uL (4.8-10.8)
[2021-08-20 04:43] LABS: CALCIUM, IONIZED 1.02 mmol/L (1.15-1.33); VBG PH 7.35 (7.31-7.41)
[2021-08-20 05:00] LABS: ALBUMIN 2.5 g/dL (3.2-5.5); BILIRUBIN,DIRECT 0.3 mg/dL (0.1-0.5); BILIRUBIN,TOTAL 1.1 mg/dL (0.2-1.0); CALCIUM 7.3 mg/dL (8.5-10.3); CREATININE 2.6 mg/dL (0.6-1.2); MAGNESIUM 2.9 mg/dL (1.7-2.8); PHOSPHORUS 2.4 mg/dL (2.5-4.6); POTASSIUM 4.6 mmol/L (3.5-5.0); TOTAL PROTEIN 6.9 g/dL (6.7-8.2)
[2021-08-20] MEDS ORDERED: SODIUM CHLORIDE 0.9% 500 ML IV ONE (05:26)
[2021-08-20] MEDS: NEUTRA-PHOS 250 MG TABLET PO SCH ×2 (05:38→08:32)
[2021-08-20] MEDS: INSULIN REGULAR HUMAN 300 UNIT/3 ML VIAL SUBQ SCH ×4 (05:54→23:52)
[2021-08-20] MEDS: SODIUM CHLORIDE 0.9% 500 ML IV PRN (05:56)
[2021-08-20] MEDS ORDERED: CALCIUM GLUCONATE 1,000 MG in SODIUM CHLORIDE 0.9% 50 ML IV ONE (06:00)
[2021-08-20] MEDS: PANTOPRAZOLE 40 MG VIAL IVP SCH (06:32)
--- NOTE | 2021-08-20 07:19 | PROVIDER PROGRESS NOTE ---
Subjective - Prog Note Date Prog Note Date: 08/20/21 - Subjective Subjective: He remains intubated and sedated. Current Medications - Current Medications Current Medications: Active Medications Albuterol (Albuterol Neb 2.5 Mg/3 Ml) 2.5 mg INH Q4HR PRN PRN Reason: Wheezing Atorvastatin Calcium (Atorvastatin 40 Mg Tablet) 40 mg PO QPM DINESH Last Admin: 08/19/21 20:47 Dose: 40 mg Documented by: Chlorhexidine Gluconate (Chlorhexidine Gluconate 15 Ml Udc) 15 ml PO BID DINESH Last Admin: 08/20/21 08:31 Dose: 15 ml Documented by: Cholecalciferol (Cholecalciferol 25 Mcg Tablet) 50 mcg PO DAILY DINESH Dexamethasone (Dexamethasone 10 Mg/Ml Vial) 6 mg IVP DAILY DINESH Stop: 08/28/21 09:01 Last Admin: 08/20/21 08:32 Dose: 6 mg Documented by: Propofol (Diprivan) 1,000 mg in 100 mls @ 8.981 mls/hr IV .[id number] DINESH; Protocol Last Admin: 08/20/21 09:06 Dose: 25 mcg/kg/min, 22.453 mls/hr Documented by: Ceftriaxone Sodium 2 gm/ (Sodium Chloride) 100 mls @ 200 mls/hr IV DAILY DINESH Stop: 08/23/21 09:29 Last Infusion: 08/20/21 09:06 Dose: Infused Documented by: Doxycycline Hyclate 100 mg/ (Sodium Chloride) 100 mls @ 100 mls/hr IV BID DINESH Last Admin: 08/20/21 10:39 Dose: 100 mls/hr Documented by: Norepinephrine Bitartrate 8 mg (/ Dextrose) 250 mls @ 15 mls/hr IV .[id number] DINESH; Protocol Last Titration: 08/20/21 04:32 Dose: 8 mcg/min, 15 mls/hr Documented by: Fentanyl (Fentanyl) 2,500 mcg in 250 mls @ 15 mls/hr IV .[id number] DINESH; Protocol Last Admin: 08/20/21 08:39 Dose: 4 mcg/kg/hr, 60 mls/hr Documented by: Sodium Chloride (Normal Saline 0.9%) 500 mls @ 20 mls/hr IV Q24H PRN PRN Reason: TKO RATE Last Admin: 08/20/21 05:56 Dose: 20 mls/hr Documented by: Insulin Glargine (Insulin Glargine 300 Unit/3 Ml Pen) 25 unit SUBQ DAILY [facility] Last Admin: 08/20/21 08:40 Dose: 25 unit Documented by: Insulin Human Regular (Insulin Regular Human 300 Unit/3 Ml Vial) 1 - 9 unit SUBQ Q6HR [facility]; Protocol Last Admin: 08/20/21 12:32 Dose: 7 unit Documented by: Ondansetron HCl (Ondansetron 4 Mg/2 Ml Vial) 4 mg IVP Q6HR PRN PRN Reason: Nausea / Vomiting Pantoprazole Sodium (Pantoprazole 40 Mg Vial) 40 mg IVP QDAC [facility] Last Admin: 08/20/21 06:32 Dose: 40 mg Documented by: Sodium Chloride (Sodium Chloride Flush 0.9% 10 Ml Syringe) 10 ml IVP 0100,09 00,1700 [facility] Last Admin: 08/20/21 10:40 Dose: 10 ml Documented by: Sodium Chloride (Sodium Chloride Flush 0.9% 10 Ml Syringe) 10 ml IVP PRN PRN PRN Reason: NEEDED PER PROVIDER ORDERS Omeprazole 40 mg PO DAILY 03/06/13 Aspirin [Aspir-Shannen] 325 mg PO DAILY 01/17/14 Atorvastatin Calcium 40 mg PO QPM 04/22/19 Diltiazem HCl [Diltiazem ER] 180 mg PO DAILY 04/22/19 Gabapentin [Neurontin] 100 mg PO QPM 04/22/19 Ipratropium/Albuterol [Duoneb] 3 ml INH Q6H 04/22/19 Furosemide 80 mg PO BID 04/24/19 Fluticasone/Salmeterol [Advair 500-50 Diskus] 1 each INH BID 05/31/19 Insulin Glargine [Lantus Solostar] 0 - 58 unit IM DAILY 10/09/20 Ferrous Gluconate 324 mg PO .[id number] 08/19/21 Losartan [Cozaar] 50 mg PO DAILY 08/19/21 Potassium Chloride [K-Dur] 20 meq PO BID 08/19/21 metFORMIN [Glucophage] 1,000 mg PO DAILY 08/19/21 Objective - Vital Signs/Intake & Output Reviewed Vital Signs: Yes Vital Signs: Vital Signs Temp Pulse Pulse Resp BP BP BP 08/20/21 07:00 56 L 28 H 116/44 L 124/49 L 08/20/21 05:19 36.3 C L 78 20 101/43 L 118/53 L 08/20/21 05:01 83 28 H 118/53 L 08/20/21 05:00 36.3 C L 88 81 28 H 107/47 L 118/53 L 08/20/21 04:55 86 28 H 08/20/21 04:50 83 28 H 08/20/21 04:45 90 28 H 08/20/21 04:40 83 29 H 08/20/21 04:35 88 28 H 08/20/21 04:30 82 28 H 08/20/21 04:25 82 28 H 08/20/21 04:20 89 28 H 08/20/21 04:15 84 27 H 08/20/21 04:10 91 21 08/20/21 04:06 87 23 08/20/21 04:05 71 24 132/80 H 08/20/21 04:04 79 19 08/20/21 04:01 89 28 H 71/43 L 08/20/21 04:00 36.2 C L 93 69 25 H 112/50 L 132/80 H 08/20/21 03:55 69 25 H 08/20/21 03:50 75 28 H 08/20/21 03:45 63 25 H 08/20/21 03:40 75 28 H 08/20/21 03:35 82 28 H 08/20/21 03:30 67 28 H 08/20/21 03:25 88 29 H 08/20/21 03:20 76 25 H Pulse Ox 08/20/21 07:00 94 08/20/21 05:19 95 08/20/21 05:01 08/20/21 05:00 96 08/20/21 04:55 08/20/21 04:50 08/20/21 04:45 08/20/21 04:40 08/20/21 04:35 08/20/21 04:30 08/20/21 04:25 08/20/21 04:20 08/20/21 04:15 08/20/21 04:10 08/20/21 04:06 08/20/21 04:05 08/20/21 04:04 08/20/21 04:01 08/20/21 04:00 93 08/20/21 03:55 08/20/21 03:50 08/20/21 03:45 08/20/21 03:40 08/20/21 03:35 08/20/21 03:30 08/20/21 03:25 08/20/21 03:20 Intake & Output: Intake & Output 08/17/21 08/18/21 08/19/21 08/20/21 23:59 23:59 23:59 23:59 Intake Total 3026.440 1049.837 Output Total 569 818 Balance 2457.440 231.837 - Objective General Appearance: positive: Other (Sedated.) ENT: positive: Other (ET tube in place.) Respiratory: positive: Other (Rhoncorous breath sounds.) Cardiovascular: positive: Extrasystoles. negative: Tachycardia, Systolic murmur Abdomen: positive: Non-tender, No distention. negative: Tenderness Skin: positive: Warm, Dry (Skin is quite dry with sloughed skin throughout.)) Extremities: positive: Pedal edema (Trace edema in lower extremities.) Neurologic/Psychiatric: positive: Other (Sedated.) - Lab Results Fish Bones: 08/20/21 04:25 08/20/21 04:25 Other Labs: Lab Results x24hrs 08/20/21 08/20/21 08/20/21 Range/Units 04:30 04:25 04:25 WBC (4.8-10.8) x10^3/uL RBC (4.70-6.10) 10^6/uL Hgb (14.0-18.0) g/dL Hct (42.0-52.0) % MCV (80.0-94.0) fL MCH (27.0-31.0) pg MCHC (32.0-36.0) g/dL RDW (12.0-15.0) % Plt Count (130-450) 10^3/uL MPV (7.4-11.4) fL Neut # (Auto) (1.5-6.6) 10^3/uL Lymph # (Auto) (1.5-3.5) 10^3/uL [place] # (Auto) (0.0-1.0) 10^3/uL Eos # (Auto) (0.0-0.7) 10^3/uL Baso # (Auto) (0.0-0.1) 10^3/uL Absolute Nucleated RBC x10^3/uL Nucleated RBC % /100WBC PT (9.9-12.6) secs INR (0.8-1.2) D-Dimer (200.0-255.0) ng/mL Bld Gas Analysis Time 0435 Sample Site ABG pH 7.35 (7.35-7.45) ABG pCO2 41 (34-45) mmHg ABG pO2 58 L (80-100) mmHg ABG HCO3 21.9 L (22.0-26.0) mmol/L ABG Total CO2 23.1 (21.0-29.0) MMOL/L ABG O2 Saturation 88 L (94-98) % ABG Base Excess -3.6 L (-2.0-3.0) mmol/L Endy Test POSITIVE VBG pH 7.350 (7.31-7.41) Ionized Calcium 1.02 L (1.15-1.33) mmol/L Respiration Rate 28 b/min O2 Delivery Device VENTILATOR Vent Mode ASSIST/CONTROL FiO2 70.00 Tidal Volume 500 mL PEEP 12 cmH2O Sodium 131 L (135-145) mmol/L Potassium 4.6 (3.5-5.0) mmol/L Chloride 97 L (101-111) mmol/L Carbon Dioxide 21 (21-32) mmol/L Anion Gap 13.0 (6-13) BUN 41 H (6-20) mg/dL Creatinine 2.6 H (0.6-1.2) mg/dL Estimated GFR (MDRD) 24 L (>89) Glucose 310 H (70-100) mg/dL Lactic Acid (0.5-2.2) mmol/L Calcium 7.3 L (8.5-10.3) mg/dL Phosphorus 2.4 L (2.5-4.6) mg/dL Magnesium 2.9 H (1.7-2.8) mg/dL Total Bilirubin 1.1 H (0.2-1.0) mg/dL Direct Bilirubin 0.3 (0.1-0.5) mg/dL AST 25 (10-42) IU/L ALT 18 (10-60) IU/L Alkaline Phosphatase 63 (42-121) IU/L Troponin I High Sens (2.3-19.7) ng/L B-Natriuretic Peptide (5-100) pg/mL Total Protein 6.9 (6.7-8.2) g/dL Albumin 2.5 L (3.2-5.5) g/dL Globulin 4.4 H (2.1-4.2) g/dL Albumin/Globulin Ratio (1.0-2.2) Nasal Adenovirus (PCR) Nasal B. parapertussis DNA (PCR) Nasal Coronavir 229E PCR Nasal Coronavir HKU1 PCR Nasal Coronavir NL63 PCR Nasal Coronavir OC43 PCR Nasal Enterovir/Rhinovir PCR Nasal Influenza B PCR Nasal Influenza A PCR Nasal Parainfluen 1 PCR Nasal Parainfluen 2 PCR Nasal Parainfluen 3 PCR Nasal Parainfluen 4 PCR Nasal RSV (PCR) Nasal Screen MRSA (PCR) (NEGATIVE) Nasal B.pertussis DNA PCR Nasal C.pneumoniae (PCR) Richy Human Metapneumo PCR Nasal M.pneumoniae (PCR) Nasal SARS-CoV-2 (PCR) 08/20/21 08/20/21 08/19/21 Range/Units 04:25 04:25 19:40 WBC 10.2 (4.8-10.8) x10^3/uL RBC 3.77 L (4.70-6.10) 10^6/uL Hgb 10.3 L (14.0-18.0) g/dL Hct 33.7 L (42.0-52.0) % MCV 89.4 (80.0-94.0) fL MCH 27.3 (27.0-31.0) pg MCHC 30.6 L (32.0-36.0) g/dL RDW 16.1 H (12.0-15.0) % Plt Count 484 H (130-450) 10^3/uL MPV 9.2 (7.4-11.4) fL Neut # (Auto) 8.6 H (1.5-6.6) 10^3/uL Lymph # (Auto) 0.8 L (1.5-3.5) 10^3/uL [place] # (Auto) 0.7 (0.0-1.0) 10^3/uL Eos # (Auto) 0.0 (0.0-0.7) 10^3/uL Baso # (Auto) 0.0 (0.0-0.1) 10^3/uL Absolute Nucleated RBC 0.29 x10^3/uL Nucleated RBC % 2.8 /100WBC PT (9.9-12.6) secs INR (0.8-1.2) D-Dimer 673.0 H (200.0-255.0) ng/mL Bld Gas Analysis Time Sample Site ABG pH (7.35-7.45) ABG pCO2 (34-45) mmHg ABG pO2 (80-100) mmHg ABG HCO3 (22.0-26.0) mmol/L ABG Total CO2 (21.0-29.0) MMOL/L ABG O2 Saturation (94-98) % ABG Base Excess (-2.0-3.0) mmol/L Endy Test VBG pH (7.31-7.41) Ionized Calcium (1.15-1.33) mmol/L Respiration Rate b/min O2 Delivery Device Vent Mode FiO2 Tidal Volume mL PEEP cmH2O Sodium 131 L (135-145) mmol/L Potassium 5.2 H (3.5-5.0) mmol/L Chloride 95 L (101-111) mmol/L Carbon Dioxide 21 (21-32) mmol/L Anion Gap 15.0 H (6-13) BUN 43 H (6-20) mg/dL Creatinine 2.8 H (0.6-1.2) mg/dL Estimated GFR (MDRD) 22 L (>89) Glucose 325 H (70-100) mg/dL Lactic Acid (0.5-2.2) mmol/L Calcium 7.2 L (8.5-10.3) mg/dL Phosphorus (2.5-4.6) mg/dL Magnesium (1.7-2.8) mg/dL Total Bilirubin (0.2-1.0) mg/dL Direct Bilirubin (0.1-0.5) mg/dL AST (10-42) IU/L ALT (10-60) IU/L Alkaline Phosphatase (42-121) IU/L Troponin I High Sens (2.3-19.7) ng/L B-Natriuretic Peptide (5-100) pg/mL Total Protein (6.7-8.2) g/dL Albumin (3.2-5.5) g/dL Globulin (2.1-4.2) g/dL Albumin/Globulin Ratio (1.0-2.2) Nasal Adenovirus (PCR) Nasal B. parapertussis DNA (PCR) Nasal Coronavir 229E PCR Nasal Coronavir HKU1 PCR Nasal Coronavir NL63 PCR Nasal Coronavir OC43 PCR Nasal Enterovir/Rhinovir PCR Nasal Influenza B PCR Nasal Influenza A PCR Nasal Parainfluen 1 PCR Nasal Parainfluen 2 PCR Nasal Parainfluen 3 PCR Nasal Parainfluen 4 PCR Nasal RSV (PCR) Nasal Screen MRSA (PCR) (NEGATIVE) Nasal B.pertussis DNA PCR Nasal C.pneumoniae (PCR) Richy Human Metapneumo PCR Nasal M.pneumoniae (PCR) Nasal SARS-CoV-2 (PCR) 08/19/21 08/19/21 08/19/21 Range/Units 17:15 13:44 13:30 WBC (4.8-10.8) x10^3/uL RBC (4.70-6.10) 10^6/uL Hgb (14.0-18.0) g/dL Hct (42.0-52.0) % MCV (80.0-94.0) fL MCH (27.0-31.0) pg MCHC (32.0-36.0) g/dL RDW (12.0-15.0) % Plt Count (130-450) 10^3/uL MPV (7.4-11.4) fL Neut # (Auto) (1.5-6.6) 10^3/uL Lymph # (Auto) (1.5-3.5) 10^3/uL [place] # (Auto) (0.0-1.0) 10^3/uL Eos # (Auto) (0.0-0.7) 10^3/uL Baso # (Auto) (0.0-0.1) 10^3/uL Absolute Nucleated RBC x10^3/uL Nucleated RBC % /100WBC PT 15.3 H (9.9-12.6) secs INR 1.4 H (0.8-1.2) D-Dimer (200.0-255.0) ng/mL Bld Gas Analysis Time 1721 Sample Site A-LINE ABG pH 7.34 L (7.35-7.45) ABG pCO2 47 H (34-45) mmHg ABG pO2 78 L (80-100) mmHg ABG HCO3 24.7 (22.0-26.0) mmol/L ABG Total CO2 26.2 (21.0-29.0) MMOL/L ABG O2 Saturation 94 (94-98) % ABG Base Excess -1.2 (-2.0-3.0) mmol/L Endy Test NOT APPLICABLE VBG pH (7.31-7.41) Ionized Calcium (1.15-1.33) mmol/L Respiration Rate 28 b/min O2 Delivery Device VENTILATOR Vent Mode ASSIST/CONTROL FiO2 80.00 Tidal Volume 500 mL PEEP 14 cmH2O Sodium (135-145) mmol/L Potassium (3.5-5.0) mmol/L Chloride (101-111) mmol/L Carbon Dioxide (21-32) mmol/L Anion Gap (6-13) BUN (6-20) mg/dL Creatinine (0.6-1.2) mg/dL Estimated GFR (MDRD) (>89) Glucose (70-100) mg/dL Lactic Acid (0.5-2.2) mmol/L Calcium (8.5-10.3) mg/dL Phosphorus (2.5-4.6) mg/dL Magnesium (1.7-2.8) mg/dL Total Bilirubin (0.2-1.0) mg/dL Direct Bilirubin (0.1-0.5) mg/dL AST (10-42) IU/L ALT (10-60) IU/L Alkaline Phosphatase (42-121) IU/L Troponin I High Sens (2.3-19.7) ng/L B-Natriuretic Peptide (5-100) pg/mL Total Protein (6.7-8.2) g/dL Albumin (3.2-5.5) g/dL Globulin (2.1-4.2) g/dL Albumin/Globulin Ratio (1.0-2.2) Nasal Adenovirus (PCR) Nasal B. parapertussis DNA (PCR) Nasal Coronavir 229E PCR Nasal Coronavir HKU1 PCR Nasal Coronavir NL63 PCR Nasal Coronavir OC43 PCR Nasal Enterovir/Rhinovir PCR Nasal Influenza B PCR Nasal Influenza A PCR Nasal Parainfluen 1 PCR Nasal Parainfluen 2 PCR Nasal Parainfluen 3 PCR Nasal Parainfluen 4 PCR Nasal RSV (PCR) Nasal Screen MRSA (PCR) NEGATIVE (NEGATIVE) Nasal B.pertussis DNA PCR Nasal C.pneumoniae (PCR) Richy Human Metapneumo PCR Nasal M.pneumoniae (PCR) Nasal SARS-CoV-2 (PCR) 08/19/21 08/19/21 08/19/21 Range/Units 11:45 10:41 10:15 WBC (4.8-10.8) x10^3/uL RBC (4.70-6.10) 10^6/uL Hgb (14.0-18.0) g/dL Hct (42.0-52.0) % MCV (80.0-94.0) fL MCH (27.0-31.0) pg MCHC (32.0-36.0) g/dL RDW (12.0-15.0) % Plt Count (130-450) 10^3/uL MPV (7.4-11.4) fL Neut # (Auto) (1.5-6.6) 10^3/uL Lymph # (Auto) (1.5-3.5) 10^3/uL [place] # (Auto) (0.0-1.0) 10^3/uL Eos # (Auto) (0.0-0.7) 10^3/uL Baso # (Auto) (0.0-0.1) 10^3/uL Absolute Nucleated RBC x10^3/uL Nucleated RBC % /100WBC PT (9.9-12.6) secs INR (0.8-1.2) D-Dimer 1029.0 H (200.0-255.0) ng/mL Bld Gas Analysis Time 1148 Sample Site RIGHT RADIAL ABG pH 7.27 L (7.35-7.45) ABG pCO2 57 H (34-45) mmHg ABG pO2 59 L (80-100) mmHg ABG HCO3 25.6 (22.0-26.0) mmol/L ABG Total CO2 27.4 (21.0-29.0) MMOL/L ABG O2 Saturation 86 L* (94-98) % ABG Base Excess -2.0 (-2.0-3.0) mmol/L Endy Test POSITIVE VBG pH (7.31-7.41) Ionized Calcium (1.15-1.33) mmol/L Respiration Rate 24 b/min O2 Delivery Device VENTILATOR Vent Mode ACVC FiO2 100.00 Tidal Volume 500 mL PEEP 12 cmH2O Sodium (135-145) mmol/L Potassium (3.5-5.0) mmol/L Chloride (101-111) mmol/L Carbon Dioxide (21-32) mmol/L Anion Gap (6-13) BUN (6-20) mg/dL Creatinine (0.6-1.2) mg/dL Estimated GFR (MDRD) (>89) Glucose (70-100) mg/dL Lactic Acid (0.5-2.2) mmol/L Calcium (8.5-10.3) mg/dL Phosphorus (2.5-4.6) mg/dL Magnesium (1.7-2.8) mg/dL Total Bilirubin (0.2-1.0) mg/dL Direct Bilirubin (0.1-0.5) mg/dL AST (10-42) IU/L ALT (10-60) IU/L Alkaline Phosphatase (42-121) IU/L Troponin I High Sens (2.3-19.7) ng/L B-Natriuretic Peptide (5-100) pg/mL Total Protein (6.7-8.2) g/dL Albumin (3.2-5.5) g/dL Globulin (2.1-4.2) g/dL Albumin/Globulin Ratio (1.0-2.2) Nasal Adenovirus (PCR) NOT DETECTED Nasal B. parapertussis DNA (PCR) NOT DETECTED Nasal Coronavir 229E PCR NOT DETECTED Nasal Coronavir HKU1 PCR NOT DETECTED Nasal Coronavir NL63 PCR NOT DETECTED Nasal Coronavir OC43 PCR NOT DETECTED Nasal Enterovir/Rhinovir PCR DETECTED A Nasal Influenza B PCR NOT DETECTED Nasal Influenza A PCR NOT DETECTED Nasal Parainfluen 1 PCR NOT DETECTED Nasal Parainfluen 2 PCR NOT DETECTED Nasal Parainfluen 3 PCR NOT DETECTED Nasal Parainfluen 4 PCR NOT DETECTED Nasal RSV (PCR) NOT DETECTED Nasal Screen MRSA (PCR) (NEGATIVE) Nasal B.pertussis DNA PCR NOT DETECTED Nasal C.pneumoniae (PCR) NOT DETECTED Richy Human Metapneumo PCR NOT DETECTED Nasal M.pneumoniae (PCR) NOT DETECTED Nasal SARS-CoV-2 (PCR) DETECTED A 08/19/21 08/19/21 08/19/21 Range/Units 10:05 10:05 10:05 WBC (4.8-10.8) x10^3/uL RBC (4.70-6.10) 10^6/uL Hgb (14.0-18.0) g/dL Hct (42.0-52.0) % MCV (80.0-94.0) fL MCH (27.0-31.0) pg MCHC (32.0-36.0) g/dL RDW (12.0-15.0) % Plt Count (130-450) 10^3/uL MPV (7.4-11.4) fL Neut # (Auto) (1.5-6.6) 10^3/uL Lymph # (Auto) (1.5-3.5) 10^3/uL [place] # (Auto) (0.0-1.0) 10^3/uL Eos # (Auto) (0.0-0.7) 10^3/uL Baso # (Auto) (0.0-0.1) 10^3/uL Absolute Nucleated RBC x10^3/uL Nucleated RBC % /100WBC PT (9.9-12.6) secs INR (0.8-1.2) D-Dimer (200.0-255.0) ng/mL Bld Gas Analysis Time Sample Site ABG pH (7.35-7.45) ABG pCO2 (34-45) mmHg ABG pO2 (80-100) mmHg ABG HCO3 (22.0-26.0) mmol/L ABG Total CO2 (21.0-29.0) MMOL/L ABG O2 Saturation (94-98) % ABG Base Excess (-2.0-3.0) mmol/L Endy Test VBG pH (7.31-7.41) Ionized Calcium (1.15-1.33) mmol/L Respiration Rate b/min O2 Delivery Device Vent Mode FiO2 Tidal Volume mL PEEP cmH2O Sodium (135-145) mmol/L Potassium (3.5-5.0) mmol/L Chloride (101-111) mmol/L Carbon Dioxide (21-32) mmol/L Anion Gap (6-13) BUN (6-20) mg/dL Creatinine (0.6-1.2) mg/dL Estimated GFR (MDRD) (>89) Glucose (70-100) mg/dL Lactic Acid 1.3 (0.5-2.2) mmol/L Calcium (8.5-10.3) mg/dL Phosphorus (2.5-4.6) mg/dL Magnesium (1.7-2.8) mg/dL Total Bilirubin (0.2-1.0) mg/dL Direct Bilirubin (0.1-0.5) mg/dL AST (10-42) IU/L ALT (10-60) IU/L Alkaline Phosphatase (42-121) IU/L Troponin I High Sens 11.4 (2.3-19.7) ng/L B-Natriuretic Peptide 54 (5-100) pg/mL Total Protein (6.7-8.2) g/dL Albumin (3.2-5.5) g/dL Globulin (2.1-4.2) g/dL Albumin/Globulin Ratio (1.0-2.2) Nasal Adenovirus (PCR) Nasal B. parapertussis DNA (PCR) Nasal Coronavir 229E PCR Nasal Coronavir HKU1 PCR Nasal Coronavir NL63 PCR Nasal Coronavir OC43 PCR Nasal Enterovir/Rhinovir PCR Nasal Influenza B PCR Nasal Influenza A PCR Nasal Parainfluen 1 PCR Nasal Parainfluen 2 PCR Nasal Parainfluen 3 PCR Nasal Parainfluen 4 PCR Nasal RSV (PCR) Nasal Screen MRSA (PCR) (NEGATIVE) Nasal B.pertussis DNA PCR Nasal C.pneumoniae (PCR) Richy Human Metapneumo PCR Nasal M.pneumoniae (PCR) Nasal SARS-CoV-2 (PCR) 08/19/21 08/19/21 Range/Units 10:05 10:05 WBC 12.4 H (4.8-10.8) x10^3/uL RBC 3.98 L (4.70-6.10) 10^6/uL Hgb 10.8 L (14.0-18.0) g/dL Hct 36.6 L (42.0-52.0) % MCV 92.0 (80.0-94.0) fL MCH 27.1 (27.0-31.0) pg MCHC 29.5 L (32.0-36.0) g/dL RDW 16.3 H (12.0-15.0) % Plt Count 387 (130-450) 10^3/uL MPV 9.2 (7.4-11.4) fL Neut # (Auto) 9.8 H (1.5-6.6) 10^3/uL Lymph # (Auto) 1.3 L (1.5-3.5) 10^3/uL [place] # (Auto) 1.0 (0.0-1.0) 10^3/uL Eos # (Auto) 0.0 (0.0-0.7) 10^3/uL Baso # (Auto) 0.0 (0.0-0.1) 10^3/uL Absolute Nucleated RBC 0.07 x10^3/uL Nucleated RBC % 0.6 /100WBC PT (9.9-12.6) secs INR (0.8-1.2) D-Dimer (200.0-255.0) ng/mL Bld Gas Analysis Time Sample Site ABG pH (7.35-7.45) ABG pCO2 (34-45) mmHg ABG pO2 (80-100) mmHg ABG HCO3 (22.0-26.0) mmol/L ABG Total CO2 (21.0-29.0) MMOL/L ABG O2 Saturation (94-98) % ABG Base Excess (-2.0-3.0) mmol/L Endy Test VBG pH (7.31-7.41) Ionized Calcium (1.15-1.33) mmol/L Respiration Rate b/min O2 Delivery Device Vent Mode FiO2 Tidal Volume mL PEEP cmH2O Sodium 130 L (135-145) mmol/L Potassium 4.8 (3.5-5.0) mmol/L Chloride 94 L (101-111) mmol/L Carbon Dioxide 25 (21-32) mmol/L Anion Gap 11.0 (6-13) BUN 39 H (6-20) mg/dL Creatinine 2.5 H (0.6-1.2) mg/dL Estimated GFR (MDRD) 25 L (>89) Glucose 157 H (70-100) mg/dL Lactic Acid (0.5-2.2) mmol/L Calcium 7.5 L (8.5-10.3) mg/dL Phosphorus 2.5 (2.5-4.6) mg/dL Magnesium (1.7-2.8) mg/dL Total Bilirubin 0.9 (0.2-1.0) mg/dL Direct Bilirubin (0.1-0.5) mg/dL AST 41 (10-42) IU/L ALT 23 (10-60) IU/L Alkaline Phosphatase 70 (42-121) IU/L Troponin I High Sens (2.3-19.7) ng/L B-Natriuretic Peptide (5-100) pg/mL Total Protein 7.5 (6.7-8.2) g/dL Albumin 2.9 L (3.2-5.5) g/dL Globulin 4.6 H (2.1-4.2) g/dL Albumin/Globulin Ratio 0.6 L (1.0-2.2) Nasal Adenovirus (PCR) Nasal B. parapertussis DNA (PCR) Nasal Coronavir 229E PCR Nasal Coronavir HKU1 PCR Nasal Coronavir NL63 PCR Nasal Coronavir OC43 PCR Nasal Enterovir/Rhinovir PCR Nasal Influenza B PCR Nasal Influenza A PCR Nasal Parainfluen 1 PCR Nasal Parainfluen 2 PCR Nasal Parainfluen 3 PCR Nasal Parainfluen 4 PCR Nasal RSV (PCR) Nasal Screen MRSA (PCR) (NEGATIVE) Nasal B.pertussis DNA PCR Nasal C.pneumoniae (PCR) Richy Human Metapneumo PCR Nasal M.pneumoniae (PCR) Nasal SARS-CoV-2 (PCR) Assessment/Plan - Problem List (1) Acute and chronic respiratory failure with hypoxia Impression: This appears be secondary to COVID-19 pneumonia. Repeat x-ray today revealed persistent bilateral infiltrates. His FiO2 requirements are decreased to 70% and his PEEP is down to 12. He appears to show some improvement but he still remains critically ill. Today is day 2 of Decadron. We have not use remdesivir given he is on mechanical ventilation. We will resume Lovenox now that central line has been placed given his elevated D-dimer. We could not obtain a CT angiogram due to his poor renal function. I did speak with his today to updated her on his condition. I informed her that he still remains quite ill and his overall prognosis is guarded. We are continuing supportive measures. (2) Pneumonia due to COVID-19 virus Impression: This appears to be the cause of his respiratory failure as mentioned above. He was diagnosed 2 weeks ago. PCR panel is positive. We will continue him on doxycycline and ceftriaxone given his white count is elevated and there could be component of bacterial pneumonia. He is also on Decadron. Today is day 2 of both the antibiotics and steroids. No remdesivir as he is already on mechanical ventilation. (3) On mechanically assisted ventilation Impression: He has had improvement in his oxygen requirements. We will continue him on the ARDS net protocol. Continue sedation with fentanyl and propofol. If his oxygen requirements increased we will consider proning and or paralytics. (4) Hypotension Impression: He is hypotensive requiring norepinephrine. This is related to the sedation he is receiving. There is currently no evidence of sepsis. We will continue with norepinephrine and titrate for mean arterial pressure of 65 mmHg. (5) Acute kidney injury superimposed on CKD Impression: He likely has CKD secondary to his diabetes. His baseline creatinine is 1.5 and it was 2.5 on admission. This increased to 2.8 yesterday but is improving to 2.6 today. He does appear hypovolemic on exam and will continue with gentle IV hydration. Avoid nephrotoxins. (6) Iron deficiency anemia Impression: His hemoglobin is stable. We will continue oral iron when appropriate. (7) Insulin dependent diabetes mellitus Impression: His blood glucose is elevated this morning but he did not receive his usual Lantus dose yesterday. This is likely exacerbated by the use of steroids. We have resumed his home Lantus today and his blood glucose remains elevated we will increase the dose. Continue with sliding scale. We will look to start tube feeds tomorrow.
[2021-08-20] MEDS: CHLORHEXIDINE GLUCONATE 15 ML UDC PO SCH ×2 (08:31→20:21)
[2021-08-20] MEDS: DEXAMETHASONE 10 MG/ML VIAL IVP SCH (08:32)
[2021-08-20] MEDS: cefTRIAXone 2 GM in SODIUM CHLORIDE 0.9% MINIBAG 100 ML IV SCH (08:34)
[2021-08-20] MEDS ORDERED: AZITHROMYCIN INJ 500 MG in SODIUM CHLORIDE 0.9% 250 ML IV SCH (09:00)
[2021-08-20] MEDS ORDERED: INSULIN GLARGINE 300 UNIT/3 ML PEN SUBQ SCH (09:00)
[2021-08-20] MEDS: DOXYCYCLINE INJ 100 MG in SODIUM CHLORIDE 0.9% MINIBAG 100 ML IV SCH ×2 (10:39→20:19)
--- NOTE | 2021-08-20 11:58 | XRAY Report ---
PROCEDURE: Chest 1 View X-Ray INDICATIONS: Hypoxia. Covid. ET tube placement. TECHNIQUE: One view of the chest was acquired. COMPARISON: 08/19/2021 FINDINGS: Surgical changes and devices: ET tube tip is approximately 6.2 cm above the [place]. NG tube tip is be low the left hemidiaphragm and is in the expected location of stomach lumen. Lungs and pleura: There is mild pulmonary vascular congestion. Ill-defined airspace opacities are see n scattered in bilateral lung scott suggestive of bilateral multilobar infiltrates. Small bilateral pleural effusion are seen. No gross pneumothorax. Mediastinum: Mediastinal contours appear normal. Heart size is normal. Bones and chest wall: No suspicious bony lesions. Overlying soft tissues appear unremarkable. IMPRESSION: ET tube and NG tube positions as above. Extensive bilateral pulmonary infiltrates consistent with Covid 19 infection. Small bilateral pleural effusion. No gross pneumothorax. Reviewed by: Chinmay Salcedo MD on 08/20/2021 11:57 AM PST Approved by: Chinmay Salcedo MD on 08/20/2021 11:57 AM PST Station ID: [id number]
--- NOTE | 2021-08-20 16:56 | CONSULTATION NOTE ---
Consultation Report: consulted for CVL placement. 7Fr triple lumen CVL placed in left IJ with US guidance. Placed in 1 stick. CXR Pending.
--- NOTE | 2021-08-20 16:58 | ANESTHESIA PROCEDURE NOTE ---
Anesth Central Line Template - Central Line Central Line Preparation: Unable to obtain consent, Time out completed, Ultra sound used, Sterile prep and drape Central line location: Left IJ Central line type: Triple lumen Central line aftercare: Chlorhexidine disc placed, Secured, No complications, Bundle checklist complete, Pt tolerated well
--- NOTE | 2021-08-20 17:23 | XRAY Report ---
PROCEDURE: Chest for Line Placement INDICATIONS: line placement TECHNIQUE: One view of the chest was acquired. COMPARISON: 08/20/2020 at 1115 hours FINDINGS: Surgical changes and devices: An ET tube projects approximately 5.1 cm above the [place]. A left IJ li ne extends to the superior vena cava.. Lungs and pleura: No pleural effusions or pneumothorax. Pulmonary edema. Mediastinum: Mediastinal contours appear normal. Mild cardiomegaly. Bones and chest wall: No suspicious bony lesions. Overlying soft tissues appear unremarkable. IMPRESSION: 1. Central line extends to the superior vena cava. ET tube in satisfactory position. 2. Congestive heart failure exacerbation. Reviewed by: Donavon Swain MD on 08/20/2021 5:21 PM PST Approved by: Donavon Swain MD on 08/20/2021 5:21 PM PST Station ID: [id number]
[2021-08-20] MEDS: ATORVASTATIN 40 MG TABLET PO SCH (20:21)
[2021-08-20] MEDS ORDERED: MIDAZOLAM 2 MG/2 ML VIAL IVP ONE (20:42)
[2021-08-20] MEDS ORDERED: MIDAZOLAM 2 MG/2 ML VIAL IVP PRN (20:42)
[2021-08-20] MEDS: MIDAZOLAM 2 MG/2 ML VIAL IVP ONE (20:46)
[2021-08-20] MEDS: ENOXAPARIN 150 MG/ML SYRINGE SUBQ SCH (20:50)
[2021-08-20] MEDS: MIDAZOLAM DRIP 50 MG/50 ML 50 MG/50 ML BAG IV SCH (21:55)
[2021-08-21] MEDS: SODIUM CHLORIDE FLUSH 0.9% 10 ML SYRINGE IVP PRN ×3 (00:20→06:19)
[2021-08-21] MEDS: SODIUM CHLORIDE FLUSH 0.9% 10 ML SYRINGE IVP SCH ×3 (00:21→17:00)
[2021-08-21] MEDS: fentaNYL 2,500 MCG/250 ML 2,500 MCG/250 ML BAG IV SCH ×6 (00:51→20:28)
[2021-08-21] MEDS: MIDAZOLAM DRIP 50 MG/50 ML 50 MG/50 ML BAG IV SCH ×5 (02:33→20:29)
[2021-08-21 04:57] LABS: BASOPHILS % (AUTO) 0.2 %; CALCIUM, IONIZED 1.02 mmol/L (1.15-1.33); HCT - HEMATOCRIT 30.4 % (42.0-52.0); HGB - HEMOGLOBIN 9.5 g/dL (14.0-18.0); LYMPHOCYTES # (AUTO) 0.7 10^3/uL (1.5-3.5); LYMPHOCYTES % (AUTO) 6.7 %; MEAN CORPUSCULAR HEMOGLOBIN 28.1 pg (27.0-31.0); MEAN CORPUSCULAR HGB CONC 31.3 g/dL (32.0-36.0); MEAN CORPUSCULAR VOLUME 89.9 fL (80.0-94.0); MEAN PLATELET VOLUME 9.5 fL (7.4-11.4); MONOCYTES # (AUTO) 0.9 10^3/uL (0.0-1.0); MONOCYTES % (AUTO) 7.8 %; NEUTROPHILS % (AUTO) 83.5 %; NRBC ABSOLUTE COUNT (AUTO) 0.36 x10^3/uL; NUCLEATED RED BLOOD CELLS AUTO 3.3 /100WBC; PLT - PLATELET COUNT 461 10^3/uL (130-450); RED BLOOD COUNT 3.38 10^6/uL (4.70-6.10); RED CELL DISTRIBUTION WIDTH 16.4 % (12.0-15.0); VBG PH 7.405 (7.31-7.41); WHITE BLOOD COUNT 10.8 x10^3/uL (4.8-10.8)
[2021-08-21 05:12] LABS: ALBUMIN 2.4 g/dL (3.2-5.5); BILIRUBIN,DIRECT 0.2 mg/dL (0.1-0.5); BILIRUBIN,TOTAL 0.7 mg/dL (0.2-1.0); CALCIUM 7.5 mg/dL (8.5-10.3); CREATININE 2.3 mg/dL (0.6-1.2); PHOSPHORUS 2.4 mg/dL (2.5-4.6); POTASSIUM 4.4 mmol/L (3.5-5.0); TOTAL PROTEIN 6.3 g/dL (6.7-8.2)
[2021-08-21 05:58] LABS: ABG BASE EXCESS 0.1 mmol/L (-2.0-3.0); ABG HCO3 23.5 mmol/L (22.0-26.0); ABG MODE OF VENTILATION ASSIST/CONTROL; ABG OXYGEN SATURATION 92 % (94-98); ABG PCO2 34 mmHg (34-45); ABG PH 7.46 (7.35-7.45); ABG PO2 66 mmHg (80-100); ABG TCO2 24.5 MMOL/L (21.0-29.0); ALLEN TEST POSITIVE
[2021-08-21 05:59] LABS: ABG RESPIRATORY RATE 28 b/min
[2021-08-21] MEDS: INSULIN REGULAR HUMAN 300 UNIT/3 ML VIAL SUBQ SCH ×3 (06:12→17:00)
[2021-08-21] MEDS: PANTOPRAZOLE 40 MG VIAL IVP SCH (06:19)
[2021-08-21] MEDS: SODIUM CHLORIDE 0.9% 500 ML IV PRN (06:19)
[2021-08-21] MEDS ORDERED: MIDAZOLAM 2 MG/2 ML VIAL IVP PRN (08:09)
--- NOTE | 2021-08-21 08:40 | PROVIDER PROGRESS NOTE ---
Subjective - Prog Note Date Prog Note Date: 08/21/21 - Subjective Subjective: He was agitated overnight and his sedation needed to be changed. Propofol was discontinued and he was started on Versed. Current Medications - Current Medications Current Medications: Active Medications Albuterol (Albuterol Neb 2.5 Mg/3 Ml) 2.5 mg INH Q4HR PRN PRN Reason: Wheezing Atorvastatin Calcium (Atorvastatin 40 Mg Tablet) 40 mg PO QPM COUNT INCLUDES THE [facility] Last Admin: 08/20/21 20:21 Dose: 40 mg Documented by: Chlorhexidine Gluconate (Chlorhexidine Gluconate 15 Ml Udc) 15 ml PO BID DINESH Last Admin: 08/20/21 20:21 Dose: 15 ml Documented by: Cholecalciferol (Cholecalciferol 25 Mcg Tablet) 50 mcg PO DAILY COUNT INCLUDES THE [facility] Dexamethasone (Dexamethasone 10 Mg/Ml Vial) 6 mg IVP DAILY COUNT INCLUDES THE [facility] Stop: 08/28/21 09:01 Last Admin: 08/20/21 08:32 Dose: 6 mg Documented by: Enoxaparin Sodium (Enoxaparin 150 Mg/Ml Syringe) 150 mg SUBQ BID COUNT INCLUDES THE [facility] Last Admin: 08/20/21 20:50 Dose: 150 mg Documented by: Ceftriaxone Sodium 2 gm/ (Sodium Chloride) 100 mls @ 200 mls/hr IV DAILY DINESH Stop: 08/23/21 09:29 Last Infusion: 08/20/21 09:06 Dose: Infused Documented by: Doxycycline Hyclate 100 mg/ (Sodium Chloride) 100 mls @ 100 mls/hr IV BID COUNT INCLUDES THE [facility] Last Infusion: 08/20/21 21:32 Dose: Infused Documented by: Norepinephrine Bitartrate 8 mg (/ Dextrose) 250 mls @ 15 mls/hr IV .[id number] COUNT INCLUDES THE [facility]; Protocol Last Titration: 08/21/21 08:00 Dose: 0 mcg/min, 0 mls/hr Documented by: Fentanyl (Fentanyl) 2,500 mcg in 250 mls @ 15 mls/hr IV .[id number] COUNT INCLUDES THE [facility]; Protocol Last Admin: 08/21/21 08:06 Dose: 5 mcg/kg/hr, 75 mls/hr Documented by: Sodium Chloride (Normal Saline 0.9%) 500 mls @ 20 mls/hr IV Q24H PRN PRN Reason: TKO RATE Last Infusion: 08/21/21 08:00 Dose: 20 mls/hr Documented by: Propofol (Diprivan) 1,000 mg in 100 mls @ 9.21 mls/hr IV .[id number] COUNT INCLUDES THE [facility]; Protocol Insulin Glargine (Insulin Glargine 300 Unit/3 Ml Pen) 40 unit SUBQ DAILY COUNT INCLUDES THE [facility] Insulin Human Regular (Insulin Regular Human 300 Unit/3 Ml Vial) 2 - 10 unit SUBQ Q6HR COUNT INCLUDES THE [facility]; Protocol Last Admin: 08/21/21 06:12 Dose: 6 unit Documented by: Midazolam HCl (Midazolam 2 Mg/2 Ml Vial) 4 mg IVP Q2HR PRN PRN Reason: Agitation Ondansetron HCl (Ondansetron 4 Mg/2 Ml Vial) 4 mg IVP Q6HR PRN PRN Reason: Nausea / Vomiting Pantoprazole Sodium (Pantoprazole 40 Mg Vial) 40 mg IVP QDAC COUNT INCLUDES THE [facility] Last Admin: 08/21/21 06:19 Dose: 40 mg Documented by: Sodium Chloride (Sodium Chloride Flush 0.9% 10 Ml Syringe) 10 ml IVP 0100,0900,1700 COUNT INCLUDES THE [facility] Last Admin: 08/21/21 00:21 Dose: Not Given Documented by: Sodium Chloride (Sodium Chloride Flush 0.9% 10 Ml Syringe) 10 ml IVP PRN PRN PRN Reason: NEEDED PER PROVIDER ORDERS Last Admin: 08/21/21 06:19 Dose: 10 ml Documented by: Omeprazole 40 mg PO DAILY 03/06/13 Aspirin [Aspir-Shannen] 325 mg PO DAILY 01/17/14 Atorvastatin Calcium 40 mg PO QPM 04/22/19 Diltiazem HCl [Diltiazem ER] 180 mg PO DAILY 04/22/19 Gabapentin [Neurontin] 100 mg PO QPM 04/22/19 Ipratropium/Albuterol [Duoneb] 3 ml INH Q6H 04/22/19 Furosemide 80 mg PO BID 04/24/19 Fluticasone/Salmeterol [Advair 500-50 Diskus] 1 each INH BID 05/31/19 Insulin Glargine [Lantus Solostar] 0 - 58 unit IM DAILY 10/09/20 Ferrous Gluconate 324 mg PO .[id number] 08/19/21 Losartan [Cozaar] 50 mg PO DAILY 08/19/21 Potassium Chloride [K-Dur] 20 meq PO BID 08/19/21 metFORMIN [Glucophage] 1,000 mg PO DAILY 08/19/21 Objective - Vital Signs/Intake & Output Reviewed Vital Signs: Yes Vital Signs: Vital Signs Temp Pulse Pulse Resp BP BP Pulse Ox 08/21/21 08:00 36 C L 53 L 26 H 119/48 L 130/64 94 08/21/21 07:00 55 L 26 H 95/35 L 90 L 08/21/21 06:54 91 08/21/21 06:00 46 L 54 L 26 H 129/46 L 121/47 L 98 08/21/21 05:00 44 L 28 H 110/40 L 121/47 L 97 Intake & Output: Intake & Output 08/18/21 08/19/21 08/20/21 08/21/21 23:59 23:59 23:59 23:59 Intake Total 3026.440 4470.178 975.418 Output Total 569 1813 605 Balance 2457.440 2657.178 370.418 - Objective General Appearance: positive: Other (Sedated.) ENT: positive: Other (ET tube in place.) Neck: positive: Nml inspection Respiratory: positive: Other (Breath sounds diminished with faint rhonci.) Cardiovascular: positive: Regular rate & rhythm. negative: Irregularly irregular, Tachycardia, Systolic murmur Skin: positive: Warm, Dry Extremities: positive: Pedal edema (+1 edema in bilateral lower extremities.) Neurologic/Psychiatric: positive: Other (Sedated. Does not follow commands.) - Lab Results Fish Bones: 08/21/21 04:00 08/21/21 04:00 Other Labs: Lab Results x24hrs 08/21/21 08/21/21 08/21/21 Range/Units 05:45 04:53 04:00 WBC (4.8-10.8) x10^3/uL RBC (4.70-6.10) 10^6/uL Hgb (14.0-18.0) g/dL Hct (42.0-52.0) % MCV (80.0-94.0) fL MCH (27.0-31.0) pg MCHC (32.0-36.0) g/dL RDW (12.0-15.0) % Plt Count (130-450) 10^3/uL MPV (7.4-11.4) fL Neut # (Auto) (1.5-6.6) 10^3/uL Lymph # (Auto) (1.5-3.5) 10^3/uL Valley # (Auto) (0.0-1.0) 10^3/uL Eos # (Auto) (0.0-0.7) 10^3/uL Baso # (Auto) (0.0-0.1) 10^3/uL Absolute Nucleated RBC x10^3/uL Nucleated RBC % /100WBC D-Dimer (200.0-255.0) ng/mL Bld Gas Analysis Time 0556 Sample Site A-LINE ABG pH 7.46 H (7.35-7.45) ABG pCO2 34 (34-45) mmHg ABG pO2 66 L (80-100) mmHg ABG HCO3 23.5 (22.0-26.0) mmol/L ABG Total CO2 24.5 (21.0-29.0) MMOL/L ABG O2 Saturation 92 L (94-98) % ABG Base Excess 0.1 (-2.0-3.0) mmol/L Endy Test POSITIVE VBG pH 7.405 (7.31-7.41) Ionized Calcium 1.02 L (1.15-1.33) mmol/L Respiration Rate 28 b/min O2 Delivery Device VENTILATOR Vent Mode ASSIST/CONTROL FiO2 70.00 Tidal Volume 500 mL PEEP 10 cmH2O Sodium (135-145) mmol/L Potassium (3.5-5.0) mmol/L Chloride (101-111) mmol/L Carbon Dioxide (21-32) mmol/L Anion Gap (6-13) BUN (6-20) mg/dL Creatinine (0.6-1.2) mg/dL Estimated GFR (MDRD) (>89) Glucose (70-100) mg/dL Calcium (8.5-10.3) mg/dL Phosphorus (2.5-4.6) mg/dL Magnesium (1.7-2.8) mg/dL Total Bilirubin (0.2-1.0) mg/dL Direct Bilirubin (0.1-0.5) mg/dL AST (10-42) IU/L ALT (10-60) IU/L Alkaline Phosphatase (42-121) IU/L C-Reactive Protein 6.6 H (0-1.0) mg/dL Total Protein (6.7-8.2) g/dL Albumin (3.2-5.5) g/dL Globulin (2.1-4.2) g/dL 25-OH Vitamin D Total (30-100) ng/mL 08/21/21 08/21/21 08/21/21 Range/Units 04:00 04:00 04:00 WBC 10.8 (4.8-10.8) x10^3/uL RBC 3.38 L (4.70-6.10) 10^6/uL Hgb 9.5 L (14.0-18.0) g/dL Hct 30.4 L (42.0-52.0) % MCV 89.9 (80.0-94.0) fL MCH 28.1 (27.0-31.0) pg MCHC 31.3 L (32.0-36.0) g/dL RDW 16.4 H (12.0-15.0) % Plt Count 461 H (130-450) 10^3/uL MPV 9.5 (7.4-11.4) fL Neut # (Auto) 9.0 H (1.5-6.6) 10^3/uL Lymph # (Auto) 0.7 L (1.5-3.5) 10^3/uL Valley # (Auto) 0.9 (0.0-1.0) 10^3/uL Eos # (Auto) 0.0 (0.0-0.7) 10^3/uL Baso # (Auto) 0.0 (0.0-0.1) 10^3/uL Absolute Nucleated RBC 0.36 x10^3/uL Nucleated RBC % 3.3 /100WBC D-Dimer 612.0 H (200.0-255.0) ng/mL Bld Gas Analysis Time Sample Site ABG pH (7.35-7.45) ABG pCO2 (34-45) mmHg ABG pO2 (80-100) mmHg ABG HCO3 (22.0-26.0) mmol/L ABG Total CO2 (21.0-29.0) MMOL/L ABG O2 Saturation (94-98) % ABG Base Excess (-2.0-3.0) mmol/L Endy Test VBG pH (7.31-7.41) Ionized Calcium (1.15-1.33) mmol/L Respiration Rate b/min O2 Delivery Device Vent Mode FiO2 Tidal Volume mL PEEP cmH2O Sodium 135 (135-145) mmol/L Potassium 4.4 (3.5-5.0) mmol/L Chloride 102 (101-111) mmol/L Carbon Dioxide 24 (21-32) mmol/L Anion Gap 9.0 (6-13) BUN 45 H (6-20) mg/dL Creatinine 2.3 H (0.6-1.2) mg/dL Estimated GFR (MDRD) 28 L (>89) Glucose 240 H (70-100) mg/dL Calcium 7.5 L (8.5-10.3) mg/dL Phosphorus 2.4 L (2.5-4.6) mg/dL Magnesium 3.0 H (1.7-2.8) mg/dL Total Bilirubin 0.7 (0.2-1.0) mg/dL Direct Bilirubin 0.2 (0.1-0.5) mg/dL AST 17 (10-42) IU/L ALT 16 (10-60) IU/L Alkaline Phosphatase 57 (42-121) IU/L C-Reactive Protein (0-1.0) mg/dL Total Protein 6.3 L (6.7-8.2) g/dL Albumin 2.4 L (3.2-5.5) g/dL Globulin 3.9 (2.1-4.2) g/dL 25-OH Vitamin D Total (30-100) ng/mL 08/20/21 Range/Units 13:55 WBC (4.8-10.8) x10^3/uL RBC (4.70-6.10) 10^6/uL Hgb (14.0-18.0) g/dL Hct (42.0-52.0) % MCV (80.0-94.0) fL MCH (27.0-31.0) pg MCHC (32.0-36.0) g/dL RDW (12.0-15.0) % Plt Count (130-450) 10^3/uL MPV (7.4-11.4) fL Neut # (Auto) (1.5-6.6) 10^3/uL Lymph # (Auto) (1.5-3.5) 10^3/uL Valley # (Auto) (0.0-1.0) 10^3/uL Eos # (Auto) (0.0-0.7) 10^3/uL Baso # (Auto) (0.0-0.1) 10^3/uL Absolute Nucleated RBC x10^3/uL Nucleated RBC % /100WBC D-Dimer (200.0-255.0) ng/mL Bld Gas Analysis Time Sample Site ABG pH (7.35-7.45) ABG pCO2 (34-45) mmHg ABG pO2 (80-100) mmHg ABG HCO3 (22.0-26.0) mmol/L ABG Total CO2 (21.0-29.0) MMOL/L ABG O2 Saturation (94-98) % ABG Base Excess (-2.0-3.0) mmol/L Endy Test VBG pH (7.31-7.41) Ionized Calcium (1.15-1.33) mmol/L Respiration Rate b/min O2 Delivery Device Vent Mode FiO2 Tidal Volume mL PEEP cmH2O Sodium (135-145) mmol/L Potassium (3.5-5.0) mmol/L Chloride (101-111) mmol/L Carbon Dioxide (21-32) mmol/L Anion Gap (6-13) BUN (6-20) mg/dL Creatinine (0.6-1.2) mg/dL Estimated GFR (MDRD) (>89) Glucose (70-100) mg/dL Calcium (8.5-10.3) mg/dL Phosphorus (2.5-4.6) mg/dL Magnesium (1.7-2.8) mg/dL Total Bilirubin (0.2-1.0) mg/dL Direct Bilirubin (0.1-0.5) mg/dL AST (10-42) IU/L ALT (10-60) IU/L Alkaline Phosphatase (42-121) IU/L C-Reactive Protein (0-1.0) mg/dL Total Protein (6.7-8.2) g/dL Albumin (3.2-5.5) g/dL Globulin (2.1-4.2) g/dL 25-OH Vitamin D Total 10 L (30-100) ng/mL Assessment/Plan - Problem List (1) Acute and chronic respiratory failure with hypoxia Impression: He is slowly making progress each day. This is secondary to COVID-19 pneumonia. He is now down to an FiO2 of 60% and PEEP of 10. He remains on Decadron and IV antibiotics. His overall prognosis remains guarded but he has shown signs of improvement and this was discussed with his . At this time we will keep him on Decadron and the antibiotics. Continue with vent management with the ARDS net protocol. Continue daily ABGs and we will look to wean him off of the ventilator hopefully over the next 2 to 3 days as his oxygen requirements continue to improve. There is no role for paralytics at this time. (2) Pneumonia due to COVID-19 virus Impression: This is a cause of his respiratory failure. He remains on Decadron. We did not use remdesivir given he has been on mechanical ventilation. Continue supportive measures as mentioned above. (3) On mechanically assisted ventilation Impression: He continues to require mechanical ventilation. We were able to decrease his PEEP this morning and come down on his rate as well as decrease the FiO2 to 60%. Sedation has been difficult for him at times. We will put him back on fall and fentanyl and we will add Versed pushes as needed. At this point in time, I do not believe he would benefit from paralytics as you are able to ventilate and oxygenate him. The focus will be on improved sedation. (4) Hypotension Impression: He is still requiring very low-dose norepinephrine. The hypotension is related to sedation. No evidence of sepsis. I am hopeful we can wean him off of the norepinephrine today. (5) Gram-positive bacteremia Impression: Initial blood culture on admission are growing gram-positive bacilli in the aerobic bottle and gram-positive cocci in clusters in the anaerobic bottle. In the other set is negative to date. Suspect this is likely a contaminant. He is on IV doxycycline for suspected pneumonia. We will hold off on switching to bank given the low suspicion of a true infection. (6) Acute kidney injury superimposed on CKD Impression: He has CKD is likely secondary to his diabetes. His creatinine was 2.5 on admission and has been slowly improving. Today it is down to 2.3. I suspect likely component of prerenal injury as he appeared hypovolemic on admission. We will continue with gentle IV hydration and monitor his renal function closely. We will continue to maintain a mean arterial pressure greater than 65 mmHg. (7) Iron deficiency anemia Impression: His hemoglobin has been stable without evidence of bleeding. (8) Insulin dependent diabetes mellitus Impression: His blood glucose remains greater than 200. This is likely exacerbated by the use of Decadron. We will increase his Lantus dose to 40 units. We we will likely start tube feeds today and he will likely need a further increase in his Lantus. Continue with sliding scale.
[2021-08-21] MEDS ORDERED: PROPOFOL 1000 MG/100 ML 1,000 MG/100 ML BOTTLE IV SCH (09:00)
[2021-08-21] MEDS ORDERED: INSULIN GLARGINE 300 UNIT/3 ML PEN SUBQ SCH (09:00)
[2021-08-21] MEDS: cefTRIAXone 2 GM in SODIUM CHLORIDE 0.9% MINIBAG 100 ML IV SCH (09:10)
[2021-08-21] MEDS: CHOLECALCIFEROL 25 MCG TABLET PO SCH (09:15)
[2021-08-21] MEDS: DEXAMETHASONE 10 MG/ML VIAL IVP SCH (09:20)
[2021-08-21] MEDS: ENOXAPARIN 150 MG/ML SYRINGE SUBQ SCH ×2 (09:24→20:27)
[2021-08-21] MEDS: CHLORHEXIDINE GLUCONATE 15 ML UDC PO SCH ×2 (09:28→20:27)
[2021-08-21] MEDS: DOXYCYCLINE INJ 100 MG in SODIUM CHLORIDE 0.9% MINIBAG 100 ML IV SCH ×2 (09:45→20:27)
[2021-08-21] MEDS: ATORVASTATIN 40 MG TABLET PO SCH (20:27)
[2021-08-21] MEDS: ALBUTEROL NEB 2.5 MG/3 ML INH PRN (21:25)
[2021-08-22] MEDS: INSULIN REGULAR HUMAN 300 UNIT/3 ML VIAL SUBQ SCH ×4 (00:12→17:15)
[2021-08-22] MEDS: SODIUM CHLORIDE FLUSH 0.9% 10 ML SYRINGE IVP SCH ×3 (00:14→17:00)
[2021-08-22] MEDS: ALBUTEROL NEB 2.5 MG/3 ML INH PRN ×2 (01:09→21:41)
[2021-08-22] MEDS: MIDAZOLAM DRIP 50 MG/50 ML 50 MG/50 ML BAG IV SCH ×6 (01:50→20:43)
[2021-08-22] MEDS: SODIUM CHLORIDE FLUSH 0.9% 10 ML SYRINGE IVP PRN (04:42)
[2021-08-22] MEDS: fentaNYL 2,500 MCG/250 ML 2,500 MCG/250 ML BAG IV SCH ×3 (05:08→21:49)
[2021-08-22 05:23] LABS: BASOPHILS % (AUTO) 0.1 %; HCT - HEMATOCRIT 31.2 % (42.0-52.0); HGB - HEMOGLOBIN 9.5 g/dL (14.0-18.0); MEAN CORPUSCULAR HEMOGLOBIN 27.5 pg (27.0-31.0); MEAN CORPUSCULAR HGB CONC 30.4 g/dL (32.0-36.0); MEAN CORPUSCULAR VOLUME 90.4 fL (80.0-94.0); MEAN PLATELET VOLUME 9.4 fL (7.4-11.4); MONOCYTES % (AUTO) 6.8 %; PLT - PLATELET COUNT 467 10^3/uL (130-450); RED BLOOD COUNT 3.45 10^6/uL (4.70-6.10); RED CELL DISTRIBUTION WIDTH 16.9 % (12.0-15.0); WHITE BLOOD COUNT 10.3 x10^3/uL (4.8-10.8)
[2021-08-22 05:28] LABS: CALCIUM, IONIZED 1.06 mmol/L (1.15-1.33); VBG PH 7.392 (7.31-7.41)
[2021-08-22 05:29] LABS: ABG PCO2 36 mmHg (34-45); ABG PH 7.42 (7.35-7.45)
[2021-08-22 05:30] LABS: ABG BASE EXCESS -1.3 mmol/L (-2.0-3.0); ABG HCO3 22.8 mmol/L (22.0-26.0); ABG PO2 57 mmHg (80-100); ABG TCO2 23.9 MMOL/L (21.0-29.0)
[2021-08-22 05:32] LABS: ABG OXYGEN SATURATION 87 % (94-98)
[2021-08-22 05:33] LABS: ABG MODE OF VENTILATION ASSIST/CONTROL; ABG RESPIRATORY RATE 26 b/min
[2021-08-22 05:35] LABS: ABNORMAL LYMPHS % (MANUAL) 0 %
[2021-08-22 05:39] LABS: BAND NEUTROPHILS % (MANUAL) 1 %; LYMPHOCYTES # (MANUAL) 0.4 10^3/uL (1.5-3.5); LYMPHOCYTES % (MANUAL) 4 %; MONOCYTES # (MANUAL) 0.6 10^3/uL (0.0-1.0); MYELOCYTES % (MANUAL) 1 %; NEUTROPHILS # (MANUAL) 9.2 10^3/uL (1.5-6.6)
[2021-08-22 05:40] LABS: DIFFERENTIAL COMMENT MANUAL DIFFERENTIAL; PLATELET ESTIMATE, MANUAL INCREASED (>450,000) (NORMAL); PLATELET MORPHOLOGY NORMAL APPEARANCE (NORMAL); WBC MORPHOLOGY (MULTIPLE) NORMAL APPEARANCE (NORMAL)
[2021-08-22 05:41] LABS: PHOSPHORUS 2.7 mg/dL (2.5-4.6)
[2021-08-22 05:43] LABS: ALBUMIN 2.3 g/dL (3.2-5.5); ALBUMIN/GLOBULIN RATIO 0.6 (1.0-2.2); BILIRUBIN,DIRECT 0.1 mg/dL (0.1-0.5); BILIRUBIN,TOTAL 0.5 mg/dL (0.2-1.0); CALCIUM 7.4 mg/dL (8.5-10.3); CREATININE 2.1 mg/dL (0.6-1.2); POTASSIUM 4.9 mmol/L (3.5-5.0); TOTAL PROTEIN 6.2 g/dL (6.7-8.2)
[2021-08-22] MEDS: PANTOPRAZOLE 40 MG VIAL IVP SCH (06:16)
--- NOTE | 2021-08-22 07:33 | PROVIDER PROGRESS NOTE ---
Subjective - Prog Note Date Prog Note Date: 08/22/21 - Subjective Subjective: Remains sedated and intubated. He has not been agitated with his current sedation. Current Medications - Current Medications Current Medications: Active Medications Albuterol (Albuterol Neb 2.5 Mg/3 Ml) 2.5 mg INH Q4HR PRN PRN Reason: Wheezing Last Admin: 08/22/21 01:09 Dose: 2.5 mg Documented by: Atorvastatin Calcium (Atorvastatin 40 Mg Tablet) 40 mg PO QPM [facility] Last Admin: 08/21/21 20:27 Dose: 40 mg Documented by: Chlorhexidine Gluconate (Chlorhexidine Gluconate 15 Ml Udc) 15 ml PO BID [facility] Last Admin: 08/21/21 20:27 Dose: 15 ml Documented by: Cholecalciferol (Cholecalciferol 25 Mcg Tablet) 50 mcg PO DAILY [facility] Last Admin: 08/21/21 09:15 Dose: 50 mcg Documented by: Dexamethasone (Dexamethasone 10 Mg/Ml Vial) 6 mg IVP DAILY [facility] Stop: 08/28/21 09:01 Last Admin: 08/21/21 09:20 Dose: 6 mg Documented by: Enoxaparin Sodium (Enoxaparin 150 Mg/Ml Syringe) 150 mg SUBQ BID [facility] Last Admin: 08/21/21 20:27 Dose: 150 mg Documented by: Ceftriaxone Sodium 2 gm/ (Sodium Chloride) 100 mls @ 200 mls/hr IV DAILY [facility] Stop: 08/23/21 09:29 Last Infusion: 08/22/21 08:20 Dose: Infused Documented by: Doxycycline Hyclate 100 mg/ (Sodium Chloride) 100 mls @ 100 mls/hr IV BID [facility] Last Infusion: 08/21/21 21:33 Dose: Infused Documented by: Fentanyl (Fentanyl) 2,500 mcg in 250 mls @ 15 mls/hr IV .[id number] [facility]; Protocol Last Titration: 08/22/21 08:00 Dose: 2 mcg/kg/hr, 30 mls/hr Documented by: Sodium Chloride (Normal Saline 0.9%) 500 mls @ 20 mls/hr IV Q24H PRN PRN Reason: TKO RATE Last Infusion: 08/22/21 08:20 Dose: 20 mls/hr Documented by: Midazolam HCl (Versed Drip 50 Mg/50 Ml) 50 mg in 50 mls @ 6.14 mls/hr IV .Q8H9M [facility]; Protocol Last Titration: 08/22/21 08:00 Dose: 0.07 mg/kg/hr, 10.745 mls/hr Documented by: Insulin Glargine (Insulin Glargine 300 Unit/3 Ml Pen) 58 unit SUBQ DAILY [facility] Insulin Human Regular (Insulin Regular Human 300 Unit/3 Ml Vial) 3 - 11 unit SUBQ Q6HR [facility]; Protocol Midazolam HCl (Midazolam 2 Mg/2 Ml Vial) 4 mg IVP Q2HR PRN PRN Reason: Agitation Ondansetron HCl (Ondansetron 4 Mg/2 Ml Vial) 4 mg IVP Q6HR PRN PRN Reason: Nausea / Vomiting Pantoprazole Sodium (Pantoprazole 40 Mg Vial) 40 mg IVP QDAC [facility] Last Admin: 08/22/21 06:16 Dose: 40 mg Documented by: Polyethylene Glycol (Polyethylene Glycol 3350 17 Gm Packet) 17 gm PO DAILY [facility] Sodium Chloride (Sodium Chloride Flush 0.9% 10 Ml Syringe) 10 ml IVP 0100,090 0,1700 [facility] Last Admin: 08/22/21 00:14 Dose: 10 ml Documented by: Sodium Chloride (Sodium Chloride Flush 0.9% 10 Ml Syringe) 10 ml IVP PRN PRN PRN Reason: NEEDED PER PROVIDER ORDERS Last Admin: 08/22/21 04:42 Dose: 30 ml Documented by: Sodium Chloride (Sodium Chloride Flush 0.9% 10 Ml Syringe) 20 ml IVP PRN PRN PRN Reason: After Blood Draw Omeprazole 40 mg PO DAILY 03/06/13 Aspirin [Aspir-Shannen] 325 mg PO DAILY 01/17/14 Atorvastatin Calcium 40 mg PO QPM 04/22/19 Diltiazem HCl [Diltiazem ER] 180 mg PO DAILY 04/22/19 Gabapentin [Neurontin] 100 mg PO QPM 04/22/19 Ipratropium/Albuterol [Duoneb] 3 ml INH Q6H 04/22/19 Furosemide 80 mg PO BID 04/24/19 Fluticasone/Salmeterol [Advair 500-50 Diskus] 1 each INH BID 05/31/19 Insulin Glargine [Lantus Solostar] 0 - 58 unit IM DAILY 10/09/20 Ferrous Gluconate 324 mg PO .[id number] 08/19/21 Losartan [Cozaar] 50 mg PO DAILY 08/19/21 Potassium Chloride [K-Dur] 20 meq PO BID 08/19/21 metFORMIN [Glucophage] 1,000 mg PO DAILY 08/19/21 Objective - Vital Signs/Intake & Output Reviewed Vital Signs: Yes Vital Signs: Vital Signs Temp Pulse Pulse Resp BP BP Pulse Ox 08/22/21 07:00 92 26 H 122/53 L 130/70 96 08/22/21 06:00 36.9 C 53 L 26 H 112/39 L 116/52 L 96 08/22/21 05:16 54 L 08/22/21 05:00 57 L 26 H 114/44 L 112/67 93 08/22/21 04:00 36.5 C 93 26 H 121/54 L 126/69 95 Intake & Output: Intake & Output 08/19/21 08/20/21 08/21/21 08/22/21 23:59 23:59 23:59 23:59 Intake Total 3026.717 4470.304 2793.473 684.269 Output Total 569 1813 1817 410 Balance 2457.717 2657.304 976.473 274.269 - Objective General Appearance: positive: Other (Sedated.) Eyes Bilateral: positive: Normal inspection ENT: positive: Other (ET tube in place.) Respiratory: positive: Rhonchi, Other (Diminished breath sounds.). negative: Wheezes Cardiovascular: positive: Regular rate & rhythm, Bradycardia. negative: Irregularly irregular, Tachycardia, Systolic murmur Skin: positive: Warm, Dry Extremities: positive: Pedal edema (Trace to +1 edema in bilateral lower extremities.) Neurologic/Psychiatric: positive: Other (Sedated. Does not follow commands.) - Lab Results Fish Bones: 08/22/21 04:45 08/22/21 04:45 Other Labs: Lab Results x24hrs 08/22/21 08/22/21 08/22/21 Range/Units 06:12 05:15 04:45 WBC (4.8-10.8) x10^3/uL RBC (4.70-6.10) 10^6/uL Hgb (14.0-18.0) g/dL Hct (42.0-52.0) % MCV (80.0-94.0) fL MCH (27.0-31.0) pg MCHC (32.0-36.0) g/dL RDW (12.0-15.0) % Plt Count (130-450) 10^3/uL MPV (7.4-11.4) fL Neut # (Auto) Lymph # (Auto) Haskell # (Auto) Eos # (Auto) Baso # (Auto) Absolute Nucleated RBC Total Counted Band Neuts % (Manual) (0 - 10) % Abnorm Lymph % (Manual) % Myelocytes % ( - 0) % Nucleated RBC % Neutrophils # (Manual) (1.5-6.6) 10^3/uL Lymphocytes # (Manual) (1.5-3.5) 10^3/uL Monocytes # (Manual) (0.0-1.0) 10^3/uL Eosinophils # (Manual) (0-0.7) 10^3/uL Basophils # (Manual) (0-0.1) 10^3/uL Differential Comment WBC Morphology (NORMAL) Platelet Estimate (NORMAL) Platelet Morphology (NORMAL) RBC Morph Micro Appear (NORMAL) D-Dimer (200.0-255.0) ng/mL Bld Gas Analysis Time 0525 Sample Site A-LINE ABG pH 7.42 (7.35-7.45) ABG pCO2 36 (34-45) mmHg ABG pO2 57 L (80-100) mmHg ABG HCO3 22.8 (22.0-26.0) mmol/L ABG Total CO2 23.9 (21.0-29.0) MMOL/L ABG O2 Saturation 87 L* (94-98) % ABG Base Excess -1.3 (-2.0-3.0) mmol/L Endy Test NOT APPLICABLE VBG pH (7.31-7.41) Ionized Calcium (1.15-1.33) mmol/L Respiration Rate 26 b/min Vent Mode ASSIST/CONTROL FiO2 60.00 Tidal Volume 500 mL PEEP 10 cmH2O Sodium 137 (135-145) mmol/L Potassium 4.9 (3.5-5.0) mmol/L Chloride 105 (101-111) mmol/L Carbon Dioxide 24 (21-32) mmol/L Anion Gap 8.0 (6-13) BUN 49 H (6-20) mg/dL Creatinine 2.1 H (0.6-1.2) mg/dL Estimated GFR (MDRD) 31 L (>89) Glucose 251 H (70-100) mg/dL POC Whole Bld Glucose 251 H (70 - 100) mg/dL Calcium 7.4 L (8.5-10.3) mg/dL Phosphorus (2.5-4.6) mg/dL Magnesium (1.7-2.8) mg/dL Total Bilirubin 0.5 (0.2-1.0) mg/dL Direct Bilirubin 0.1 (0.1-0.5) mg/dL AST 15 (10-42) IU/L ALT 14 (10-60) IU/L Alkaline Phosphatase 56 (42-121) IU/L C-Reactive Protein (0-1.0) mg/dL Total Protein 6.2 L (6.7-8.2) g/dL Albumin 2.3 L (3.2-5.5) g/dL Globulin 3.9 (2.1-4.2) g/dL Albumin/Globulin Ratio 0.6 L (1.0-2.2) Prealbumin 12 L (18-45) mg/dL TSH (0.34-5.60) uIU/mL Free T4 (0.58-1.64) ng/dL 08/22/21 08/22/21 08/22/21 Range/Units 04:45 04:45 04:45 WBC (4.8-10.8) x10^3/uL RBC (4.70-6.10) 10^6/uL Hgb (14.0-18.0) g/dL Hct (42.0-52.0) % MCV (80.0-94.0) fL MCH (27.0-31.0) pg MCHC (32.0-36.0) g/dL RDW (12.0-15.0) % Plt Count (130-450) 10^3/uL MPV (7.4-11.4) fL Neut # (Auto) Lymph # (Auto) Haskell # (Auto) Eos # (Auto) Baso # (Auto) Absolute Nucleated RBC Total Counted Band Neuts % (Manual) (0 - 10) % Abnorm Lymph % (Manual) % Myelocytes % ( - 0) % Nucleated RBC % Neutrophils # (Manual) (1.5-6.6) 10^3/uL Lymphocytes # (Manual) (1.5-3.5) 10^3/uL Monocytes # (Manual) (0.0-1.0) 10^3/uL Eosinophils # (Manual) (0-0.7) 10^3/uL Basophils # (Manual) (0-0.1) 10^3/uL Differential Comment WBC Morphology (NORMAL) Platelet Estimate (NORMAL) Platelet Morphology (NORMAL) RBC Morph Micro Appear (NORMAL) D-Dimer 527.1 H (200.0-255.0) ng/mL Bld Gas Analysis Time Sample Site ABG pH (7.35-7.45) ABG pCO2 (34-45) mmHg ABG pO2 (80-100) mmHg ABG HCO3 (22.0-26.0) mmol/L ABG Total CO2 (21.0-29.0) MMOL/L ABG O2 Saturation (94-98) % ABG Base Excess (-2.0-3.0) mmol/L Endy Test VBG pH 7.392 (7.31-7.41) Ionized Calcium 1.06 L (1.15-1.33) mmol/L Respiration Rate b/min Vent Mode FiO2 Tidal Volume mL PEEP cmH2O Sodium (135-145) mmol/L Potassium (3.5-5.0) mmol/L Chloride (101-111) mmol/L Carbon Dioxide (21-32) mmol/L Anion Gap (6-13) BUN (6-20) mg/dL Creatinine (0.6-1.2) mg/dL Estimated GFR (MDRD) (>89) Glucose (70-100) mg/dL POC Whole Bld Glucose (70 - 100) mg/dL Calcium (8.5-10.3) mg/dL Phosphorus 2.7 (2.5-4.6) mg/dL Magnesium 3.0 H (1.7-2.8) mg/dL Total Bilirubin (0.2-1.0) mg/dL Direct Bilirubin (0.1-0.5) mg/dL AST (10-42) IU/L ALT (10-60) IU/L Alkaline Phosphatase (42-121) IU/L C-Reactive Protein (0-1.0) mg/dL Total Protein (6.7-8.2) g/dL Albumin (3.2-5.5) g/dL Globulin (2.1-4.2) g/dL Albumin/Globulin Ratio (1.0-2.2) Prealbumin (18-45) mg/dL TSH (0.34-5.60) uIU/mL Free T4 (0.58-1.64) ng/dL 08/22/21 08/22/21 08/21/21 Range/Units 04:45 00:11 16:49 WBC 10.3 (4.8-10.8) x10^3/uL RBC 3.45 L (4.70-6.10) 10^6/uL Hgb 9.5 L (14.0-18.0) g/dL Hct 31.2 L (42.0-52.0) % MCV 90.4 (80.0-94.0) fL MCH 27.5 (27.0-31.0) pg MCHC 30.4 L (32.0-36.0) g/dL RDW 16.9 H (12.0-15.0) % Plt Count 467 H (130-450) 10^3/uL MPV 9.4 (7.4-11.4) fL Neut # (Auto) Not Reportable Lymph # (Auto) Not Reportable Haskell # (Auto) Not Reportable Eos # (Auto) Not Reportable Baso # (Auto) Not Reportable Absolute Nucleated RBC Not Reportable Total Counted 100 Band Neuts % (Manual) 1 (0 - 10) % Abnorm Lymph % (Manual) 0 % Myelocytes % 1 H ( - 0) % Nucleated RBC % Not Reportable Neutrophils # (Manual) 9.2 H (1.5-6.6) 10^3/uL Lymphocytes # (Manual) 0.4 L (1.5-3.5) 10^3/uL Monocytes # (Manual) 0.6 (0.0-1.0) 10^3/uL Eosinophils # (Manual) 0.0 (0-0.7) 10^3/uL Basophils # (Manual) 0.0 (0-0.1) 10^3/uL Differential Comment MANUAL DIFFERENTIAL WBC Morphology NORMAL APPEARANCE (NORMAL) Platelet Estimate INCREASED (>450,000) (NORMAL) Platelet Morphology NORMAL APPEARANCE (NORMAL) RBC Morph Micro Appear 1+ POLYCHROMASIA (NORMAL) D-Dimer (200.0-255.0) ng/mL Bld Gas Analysis Time Sample Site ABG pH (7.35-7.45) ABG pCO2 (34-45) mmHg ABG pO2 (80-100) mmHg ABG HCO3 (22.0-26.0) mmol/L ABG Total CO2 (21.0-29.0) MMOL/L ABG O2 Saturation (94-98) % ABG Base Excess (-2.0-3.0) mmol/L Endy Test VBG pH (7.31-7.41) Ionized Calcium (1.15-1.33) mmol/L Respiration Rate b/min Vent Mode FiO2 Tidal Volume mL PEEP cmH2O Sodium (135-145) mmol/L Potassium (3.5-5.0) mmol/L Chloride (101-111) mmol/L Carbon Dioxide (21-32) mmol/L Anion Gap (6-13) BUN (6-20) mg/dL Creatinine (0.6-1.2) mg/dL Estimated GFR (MDRD) (>89) Glucose (70-100) mg/dL POC Whole Bld Glucose 241 H 204 H (70 - 100) mg/dL Calcium (8.5-10.3) mg/dL Phosphorus (2.5-4.6) mg/dL Magnesium (1.7-2.8) mg/dL Total Bilirubin (0.2-1.0) mg/dL Direct Bilirubin (0.1-0.5) mg/dL AST (10-42) IU/L ALT (10-60) IU/L Alkaline Phosphatase (42-121) IU/L C-Reactive Protein (0-1.0) mg/dL Total Protein (6.7-8.2) g/dL Albumin (3.2-5.5) g/dL Globulin (2.1-4.2) g/dL Albumin/Globulin Ratio (1.0-2.2) Prealbumin (18-45) mg/dL TSH (0.34-5.60) uIU/mL Free T4 (0.58-1.64) ng/dL 12/23/21 12/23/21 12/23/21 Range/Units 06:06 04:53 04:00 WBC (4.8-10.8) x10^3/uL RBC (4.70-6.10) 10^6/uL Hgb (14.0-18.0) g/dL Hct (42.0-52.0) % MCV (80.0-94.0) fL MCH (27.0-31.0) pg MCHC (32.0-36.0) g/dL RDW (12.0-15.0) % Plt Count (130-450) 10^3/uL MPV (7.4-11.4) fL Neut # (Auto) Lymph # (Auto) Haskell # (Auto) Eos # (Auto) Baso # (Auto) Absolute Nucleated RBC Total Counted Band Neuts % (Manual) (0 - 10) % Abnorm Lymph % (Manual) % Myelocytes % ( - 0) % Nucleated RBC % Neutrophils # (Manual) (1.5-6.6) 10^3/uL Lymphocytes # (Manual) (1.5-3.5) 10^3/uL Monocytes # (Manual) (0.0-1.0) 10^3/uL Eosinophils # (Manual) (0-0.7) 10^3/uL Basophils # (Manual) (0-0.1) 10^3/uL Differential Comment WBC Morphology (NORMAL) Platelet Estimate (NORMAL) Platelet Morphology (NORMAL) RBC Morph Micro Appear (NORMAL) D-Dimer (200.0-255.0) ng/mL Bld Gas Analysis Time Sample Site ABG pH (7.35-7.45) ABG pCO2 (34-45) mmHg ABG pO2 (80-100) mmHg ABG HCO3 (22.0-26.0) mmol/L ABG Total CO2 (21.0-29.0) MMOL/L ABG O2 Saturation (94-98) % ABG Base Excess (-2.0-3.0) mmol/L Endy Test VBG pH (7.31-7.41) Ionized Calcium (1.15-1.33) mmol/L Respiration Rate b/min Vent Mode FiO2 Tidal Volume mL PEEP cmH2O Sodium (135-145) mmol/L Potassium (3.5-5.0) mmol/L Chloride (101-111) mmol/L Carbon Dioxide (21-32) mmol/L Anion Gap (6-13) BUN (6-20) mg/dL Creatinine (0.6-1.2) mg/dL Estimated GFR (MDRD) (>89) Glucose (70-100) mg/dL POC Whole Bld Glucose 227 H (70 - 100) mg/dL Calcium (8.5-10.3) mg/dL Phosphorus (2.5-4.6) mg/dL Magnesium (1.7-2.8) mg/dL Total Bilirubin (0.2-1.0) mg/dL Direct Bilirubin (0.1-0.5) mg/dL AST (10-42) IU/L ALT (10-60) IU/L Alkaline Phosphatase (42-121) IU/L C-Reactive Protein 6.6 H (0-1.0) mg/dL Total Protein (6.7-8.2) g/dL Albumin (3.2-5.5) g/dL Globulin (2.1-4.2) g/dL Albumin/Globulin Ratio (1.0-2.2) Prealbumin (18-45) mg/dL TSH (0.34-5.60) uIU/mL Free T4 1.27 (0.58-1.64) ng/dL 08/21/21 08/20/21 08/20/21 Range/Units 04:00 23:49 18:06 WBC (4.8-10.8) x10^3/uL RBC (4.70-6.10) 10^6/uL Hgb (14.0-18.0) g/dL Hct (42.0-52.0) % MCV (80.0-94.0) fL MCH (27.0-31.0) pg MCHC (32.0-36.0) g/dL RDW (12.0-15.0) % Plt Count (130-450) 10^3/uL MPV (7.4-11.4) fL Neut # (Auto) Lymph # (Auto) Haskell # (Auto) Eos # (Auto) Baso # (Auto) Absolute Nucleated RBC Total Counted Band Neuts % (Manual) (0 - 10) % Abnorm Lymph % (Manual) % Myelocytes % ( - 0) % Nucleated RBC % Neutrophils # (Manual) (1.5-6.6) 10^3/uL Lymphocytes # (Manual) (1.5-3.5) 10^3/uL Monocytes # (Manual) (0.0-1.0) 10^3/uL Eosinophils # (Manual) (0-0.7) 10^3/uL Basophils # (Manual) (0-0.1) 10^3/uL Differential Comment WBC Morphology (NORMAL) Platelet Estimate (NORMAL) Platelet Morphology (NORMAL) RBC Morph Micro Appear (NORMAL) D-Dimer (200.0-255.0) ng/mL Bld Gas Analysis Time Sample Site ABG pH (7.35-7.45) ABG pCO2 (34-45) mmHg ABG pO2 (80-100) mmHg ABG HCO3 (22.0-26.0) mmol/L ABG Total CO2 (21.0-29.0) MMOL/L ABG O2 Saturation (94-98) % ABG Base Excess (-2.0-3.0) mmol/L Endy Test VBG pH (7.31-7.41) Ionized Calcium (1.15-1.33) mmol/L Respiration Rate b/min Vent Mode FiO2 Tidal Volume mL PEEP cmH2O Sodium (135-145) mmol/L Potassium (3.5-5.0) mmol/L Chloride (101-111) mmol/L Carbon Dioxide (21-32) mmol/L Anion Gap (6-13) BUN (6-20) mg/dL Creatinine (0.6-1.2) mg/dL Estimated GFR (MDRD) (>89) Glucose (70-100) mg/dL POC Whole Bld Glucose 265 H 259 H (70 - 100) mg/dL Calcium (8.5-10.3) mg/dL Phosphorus (2.5-4.6) mg/dL Magnesium (1.7-2.8) mg/dL Total Bilirubin (0.2-1.0) mg/dL Direct Bilirubin (0.1-0.5) mg/dL AST (10-42) IU/L ALT (10-60) IU/L Alkaline Phosphatase (42-121) IU/L C-Reactive Protein (0-1.0) mg/dL Total Protein (6.7-8.2) g/dL Albumin (3.2-5.5) g/dL Globulin (2.1-4.2) g/dL Albumin/Globulin Ratio (1.0-2.2) Prealbumin (18-45) mg/dL TSH 0.13 L (0.34-5.60) uIU/mL Free T4 (0.58-1.64) ng/dL 08/20/21 08/20/21 08/19/21 Range/Units 12:01 05:15 23:52 WBC (4.8-10.8) x10^3/uL RBC (4.70-6.10) 10^6/uL Hgb (14.0-18.0) g/dL Hct (42.0-52.0) % MCV (80.0-94.0) fL MCH (27.0-31.0) pg MCHC (32.0-36.0) g/dL RDW (12.0-15.0) % Plt Count (130-450) 10^3/uL MPV (7.4-11.4) fL Neut # (Auto) Lymph # (Auto) [place] # (Auto) Eos # (Auto) Baso # (Auto) Absolute Nucleated RBC Total Counted Band Neuts % (Manual) (0 - 10) % Abnorm Lymph % (Manual) % Myelocytes % ( - 0) % Nucleated RBC % Neutrophils # (Manual) (1.5-6.6) 10^3/uL Lymphocytes # (Manual) (1.5-3.5) 10^3/uL Monocytes # (Manual) (0.0-1.0) 10^3/uL Eosinophils # (Manual) (0-0.7) 10^3/uL Basophils # (Manual) (0-0.1) 10^3/uL Differential Comment WBC Morphology (NORMAL) Platelet Estimate (NORMAL) Platelet Morphology (NORMAL) RBC Morph Micro Appear (NORMAL) D-Dimer (200.0-255.0) ng/mL Bld Gas Analysis Time Sample Site ABG pH (7.35-7.45) ABG pCO2 (34-45) mmHg ABG pO2 (80-100) mmHg ABG HCO3 (22.0-26.0) mmol/L ABG Total CO2 (21.0-29.0) MMOL/L ABG O2 Saturation (94-98) % ABG Base Excess (-2.0-3.0) mmol/L Endy Test VBG pH (7.31-7.41) Ionized Calcium (1.15-1.33) mmol/L Respiration Rate b/min Vent Mode FiO2 Tidal Volume mL PEEP cmH2O Sodium (135-145) mmol/L Potassium (3.5-5.0) mmol/L Chloride (101-111) mmol/L Carbon Dioxide (21-32) mmol/L Anion Gap (6-13) BUN (6-20) mg/dL Creatinine (0.6-1.2) mg/dL Estimated GFR (MDRD) (>89) Glucose (70-100) mg/dL POC Whole Bld Glucose 271 H 304 H 314 H (70 - 100) mg/dL Calcium (8.5-10.3) mg/dL Phosphorus (2.5-4.6) mg/dL Magnesium (1.7-2.8) mg/dL Total Bilirubin (0.2-1.0) mg/dL Direct Bilirubin (0.1-0.5) mg/dL AST (10-42) IU/L ALT (10-60) IU/L Alkaline Phosphatase (42-121) IU/L C-Reactive Protein (0-1.0) mg/dL Total Protein (6.7-8.2) g/dL Albumin (3.2-5.5) g/dL Globulin (2.1-4.2) g/dL Albumin/Globulin Ratio (1.0-2.2) Prealbumin (18-45) mg/dL TSH (0.34-5.60) uIU/mL Free T4 (0.58-1.64) ng/dL 08/19/ Range/Units 17:15 WBC (4.8-10.8) x10^3/uL RBC (4.70-6.10) 10^6/uL Hgb (14.0-18.0) g/dL Hct (42.0-52.0) % MCV (80.0-94.0) fL MCH (27.0-31.0) pg MCHC (32.0-36.0) g/dL RDW (12.0-15.0) % Plt Count (130-450) 10^3/uL MPV (7.4-11.4) fL Neut # (Auto) Lymph # (Auto) [place] # (Auto) Eos # (Auto) Baso # (Auto) Absolute Nucleated RBC Total Counted Band Neuts % (Manual) (0 - 10) % Abnorm Lymph % (Manual) % Myelocytes % ( - 0) % Nucleated RBC % Neutrophils # (Manual) (1.5-6.6) 10^3/uL Lymphocytes # (Manual) (1.5-3.5) 10^3/uL Monocytes # (Manual) (0.0-1.0) 10^3/uL Eosinophils # (Manual) (0-0.7) 10^3/uL Basophils # (Manual) (0-0.1) 10^3/uL Differential Comment WBC Morphology (NORMAL) Platelet Estimate (NORMAL) Platelet Morphology (NORMAL) RBC Morph Micro Appear (NORMAL) D-Dimer (200.0-255.0) ng/mL Bld Gas Analysis Time Sample Site ABG pH (7.35-7.45) ABG pCO2 (34-45) mmHg ABG pO2 (80-100) mmHg ABG HCO3 (22.0-26.0) mmol/L ABG Total CO2 (21.0-29.0) MMOL/L ABG O2 Saturation (94-98) % ABG Base Excess (-2.0-3.0) mmol/L Endy Test VBG pH (7.31-7.41) Ionized Calcium (1.15-1.33) mmol/L Respiration Rate b/min Vent Mode FiO2 Tidal Volume mL PEEP cmH2O Sodium (135-145) mmol/L Potassium (3.5-5.0) mmol/L Chloride (101-111) mmol/L Carbon Dioxide (21-32) mmol/L Anion Gap (6-13) BUN (6-20) mg/dL Creatinine (0.6-1.2) mg/dL Estimated GFR (MDRD) (>89) Glucose (70-100) mg/dL POC Whole Bld Glucose 152 H (70 - 100) mg/dL Calcium (8.5-10.3) mg/dL Phosphorus (2.5-4.6) mg/dL Magnesium (1.7-2.8) mg/dL Total Bilirubin (0.2-1.0) mg/dL Direct Bilirubin (0.1-0.5) mg/dL AST (10-42) IU/L ALT (10-60) IU/L Alkaline Phosphatase (42-121) IU/L C-Reactive Protein (0-1.0) mg/dL Total Protein (6.7-8.2) g/dL Albumin (3.2-5.5) g/dL Globulin (2.1-4.2) g/dL Albumin/Globulin Ratio (1.0-2.2) Prealbumin (18-45) mg/dL TSH (0.34-5.60) uIU/mL Free T4 (0.58-1.64) ng/dL Assessment/Plan - Problem List (1) Acute and chronic respiratory failure with hypoxia Impression: This is secondary to COVID-19 pneumonia. His oxygen requirements are stable today compared to yesterday. He is requiring an FiO2 of 60% and a PEEP of 10. He has been slowly making progress each day but still remains quite ill. Most recent x-ray showed extensive bilateral infiltrates. We will continue with current vent management. I am hoping to wean down his FiO2 settings over the next 24 to 48 hours and once his FiO2 requirements are down to 40% or less so we can look for daily sedation vacations in preparation for extubation. We will continue Decadron and IV antibiotics. Continue with daily ABGs. There is no need for paralytics or proning at this time given his slow improvement. (2) Pneumonia due to COVID-19 virus Impression: This is the cause of his respiratory failure. He remains on Decadron and we will continue this for a total of 10 days. He also remains on IV antibiotics with ceftriaxone and doxycycline. Respiratory culture did not reveal any bacterial growth except for normal oral rambo. We will keep him on IV antibiotics for total of 5 days. (3) On mechanically assisted ventilation Impression: He continues to require mechanical ventilation with improvement in his FiO2 and PEEP. We had planned to switch his sedation yesterday but he has done quite well on Versed and fentanyl which we will continue. He may ultimately require Precedex prior to extubation because he will be at risk for delirium. We will continue with management as mentioned above. (4) Hypotension Impression: He is no longer hypotensive and is off of the norepinephrine. The hypotension was related to sedation. There has been no evidence of sepsis. (5) Gram-positive bacteremia Impression: Blood cultures grew gram-positive bacilli in the aerobic bottle and gram- positive cocci in clusters in the anaerobic bottle. That was negative to date. I suspect is likely contaminant given it is 2 different bacteria's and was only in that 1 set. He remains on antibiotics for the pneumonia. We will repeat blood cultures today but as mentioned above, low suspicion for true infection. (6) Acute kidney injury superimposed on CKD Impression: He has CKD at baseline secondary to his diabetes and likely residual kidney injury as he was previously on dialysis. His baseline creatinine is 1.5 and today it continues to improve as it is down to 2.1 from 2.5 on admission. I suspect his initial injury was likely due to hypovolemia. We treated him with IV fluids which we will hold at this time. We will continue to monitor his renal function and urine output. Avoid nephrotoxins. (7) Iron deficiency anemia Impression: His hemoglobin has remained stable without evidence of bleeding. We will ulises nue his home iron supplementation. (8) Insulin dependent diabetes mellitus Impression: His blood glucose remains elevated at greater than 200. He was started on tube feeds yesterday evening which she is tolerating well. We will increase his Lantus dose to his home dose of 58 units. We will continue monitor his blood glucose closely and will increase his Lantus dose further if necessary given he is on steroids.
[2021-08-22] MEDS: cefTRIAXone 2 GM in SODIUM CHLORIDE 0.9% MINIBAG 100 ML IV SCH (07:50)
[2021-08-22] MEDS: polyethylene glycoL 3350 17 GM PACKET PO SCH (09:00)
[2021-08-22] MEDS ORDERED: INSULIN GLARGINE 300 UNIT/3 ML PEN SUBQ SCH (09:00)
[2021-08-22] MEDS: CHOLECALCIFEROL 25 MCG TABLET PO SCH (09:00)
[2021-08-22] MEDS: CHLORHEXIDINE GLUCONATE 15 ML UDC PO SCH ×2 (09:00→20:31)
[2021-08-22] MEDS: ENOXAPARIN 150 MG/ML SYRINGE SUBQ SCH ×2 (09:00→20:31)
[2021-08-22] MEDS: DEXAMETHASONE 10 MG/ML VIAL IVP SCH (09:00)
[2021-08-22] MEDS: DOXYCYCLINE INJ 100 MG in SODIUM CHLORIDE 0.9% MINIBAG 100 ML IV SCH ×2 (09:00→20:31)
[2021-08-22] MEDS: SODIUM CHLORIDE 0.9% 500 ML IV PRN (13:00)
[2021-08-22] MEDS: ATORVASTATIN 40 MG TABLET PO SCH (20:30)
[2021-08-23] MEDS: SODIUM CHLORIDE FLUSH 0.9% 10 ML SYRINGE IVP SCH ×4 (00:24→23:03)
[2021-08-23] MEDS: INSULIN REGULAR HUMAN 300 UNIT/3 ML VIAL SUBQ SCH ×5 (00:24→23:03)
[2021-08-23] MEDS: MIDAZOLAM DRIP 50 MG/50 ML 50 MG/50 ML BAG IV SCH ×5 (00:40→19:55)
[2021-08-23] MEDS: fentaNYL 2,500 MCG/250 ML 2,500 MCG/250 ML BAG IV SCH ×3 (04:30→18:43)
[2021-08-23 05:02] LABS: CALCIUM, IONIZED 1.06 mmol/L (1.15-1.33); VBG PH 7.412 (7.31-7.41)
[2021-08-23 05:06] LABS: BASOPHILS % (AUTO) 0.3 %; HCT - HEMATOCRIT 31.1 % (42.0-52.0); HGB - HEMOGLOBIN 9.6 g/dL (14.0-18.0); LYMPHOCYTES % (AUTO) 7.7 %; MEAN CORPUSCULAR HEMOGLOBIN 28.5 pg (27.0-31.0); MEAN CORPUSCULAR HGB CONC 30.9 g/dL (32.0-36.0); MEAN CORPUSCULAR VOLUME 92.3 fL (80.0-94.0); MEAN PLATELET VOLUME 9.5 fL (7.4-11.4); MONOCYTES % (AUTO) 9.6 %; NEUTROPHILS % (AUTO) 75.4 %; PLT - PLATELET COUNT 478 10^3/uL (130-450); RED BLOOD COUNT 3.37 10^6/uL (4.70-6.10); WHITE BLOOD COUNT 11.7 x10^3/uL (4.8-10.8)
[2021-08-23 05:11] LABS: ABNORMAL LYMPHS % (MANUAL) 0 %
[2021-08-23 05:16] LABS: ALBUMIN 2.3 g/dL (3.2-5.5); BILIRUBIN,DIRECT 0.1 mg/dL (0.1-0.5); BILIRUBIN,TOTAL 0.4 mg/dL (0.2-1.0); CALCIUM 7.4 mg/dL (8.5-10.3); CREATININE 1.8 mg/dL (0.6-1.2); MAGNESIUM 2.9 mg/dL (1.7-2.8); PHOSPHORUS 2.6 mg/dL (2.5-4.6); POTASSIUM 5.6 mmol/L (3.5-5.0); TOTAL PROTEIN 6.1 g/dL (6.7-8.2)
[2021-08-23 05:20] LABS: ABG BASE EXCESS -0.3 mmol/L (-2.0-3.0); ABG HCO3 23.9 mmol/L (22.0-26.0); ABG MODE OF VENTILATION ASSIST/CONTROL; ABG OXYGEN SATURATION 89 % (94-98); ABG PCO2 37 mmHg (34-45); ABG PH 7.43 (7.35-7.45); ABG PO2 61 mmHg (80-100); ABG RESPIRATORY RATE 24 b/min; ABG TCO2 25.1 MMOL/L (21.0-29.0)
[2021-08-23 05:37] LABS: BAND NEUTROPHILS % (MANUAL) 1 %; LYMPHOCYTES # (MANUAL) 1.3 10^3/uL (1.5-3.5); LYMPHOCYTES % (MANUAL) 11 %; MONOCYTES # (MANUAL) 0.9 10^3/uL (0.0-1.0); MYELOCYTES % (MANUAL) 1 %; NEUTROPHILS # (MANUAL) 9.4 10^3/uL (1.5-6.6); NUCLEATED RBC (MANUAL) 1 %
[2021-08-23 05:38] LABS: DIFFERENTIAL COMMENT MANUAL DIFFERENTIAL; PLATELET ESTIMATE, MANUAL INCREASED (>450,000) (NORMAL); PLATELET MORPHOLOGY NORMAL APPEARANCE (NORMAL); WBC MORPHOLOGY (MULTIPLE) NORMAL APPEARANCE (NORMAL)
[2021-08-23] MEDS ORDERED: CALCIUM GLUCONATE 1,000 MG in SODIUM CHLORIDE 0.9% 50 ML IV ONE (06:30)
[2021-08-23] MEDS: PANTOPRAZOLE 40 MG VIAL IVP SCH (06:51)
[2021-08-23] MEDS ORDERED: INSULIN ASPART 300 UNIT/3 ML PEN SUBQ ONE (07:10)
[2021-08-23] MEDS ORDERED: LACTATED RINGERS 500 ML IV ONE (07:26)
--- NOTE | 2021-08-23 07:27 | PROVIDER PROGRESS NOTE ---
Subjective - Prog Note Date Prog Note Date: 08/23/21 - Subjective Subjective: Remains intubated and sedated. Current Medications - Current Medications Current Medications: Active Medications Albuterol (Albuterol Neb 2.5 Mg/3 Ml) 2.5 mg INH Q4HR PRN PRN Reason: Wheezing Last Admin: 08/22/21 21:41 Dose: 2.5 mg Documented by: Atorvastatin Calcium (Atorvastatin 40 Mg Tablet) 40 mg PO QPM [facility] Last Admin: 08/22/21 20:30 Dose: 40 mg Documented by: Chlorhexidine Gluconate (Chlorhexidine Gluconate 15 Ml Udc) 15 ml PO BID [facility] Last Admin: 08/23/21 09:53 Dose: 15 ml Documented by: Cholecalciferol (Cholecalciferol 25 Mcg Tablet) 50 mcg PO DAILY [facility] Last Admin: 08/23/21 09:53 Dose: 50 mcg Documented by: Dexamethasone (Dexamethasone 10 Mg/Ml Vial) 6 mg IVP DAILY [facility]INESH Stop: 08/28/21 09:01 Last Admin: 08/23/21 08:28 Dose: 6 mg Documented by: Enoxaparin Sodium (Enoxaparin 150 Mg/Ml Syringe) 150 mg SUBQ BID [facility] Last Admin: 08/23/21 08:31 Dose: 150 mg Documented by: Doxycycline Hyclate 100 mg/ (Sodium Chloride) 100 mls @ 100 mls/hr IV BID [facility] Last Admin: 08/23/21 09:54 Dose: 100 mls/hr Documented by: Fentanyl (Fentanyl) 2,500 mcg in 250 mls @ 15 mls/hr IV .[id number] [facility]; Protocol Last Admin: 08/23/21 11:17 Dose: 3 mcg/kg/hr, 45 mls/hr Documented by: Sodium Chloride (Normal Saline 0.9%) 500 mls @ 20 mls/hr IV Q24H PRN PRN Reason: TKO RATE Last Infusion: 08/22/21 19:00 Dose: 20 mls/hr Documented by: Midazolam HCl (Versed Drip 50 Mg/50 Ml) 50 mg in 50 mls @ 6.14 mls/hr IV .Q8H9M [facility]; Protocol Last Admin: 08/23/21 10:08 Dose: 0.08 mg/kg/hr, 12.28 mls/hr Documented by: Insulin Glargine (Insulin Glargine 300 Unit/3 Ml Pen) 70 unit SUBQ DAILY [facility] Last Admin: 08/23/21 08:19 Dose: 70 unit Documented by: Insulin Human Regular (Insulin Regular Human 300 Unit/3 Ml Vial) 3 - 11 unit SUBQ Q6HR [facility]; Protocol Last Admin: 08/23/21 06:03 Dose: 11 unit Documented by: Multi-Ingredient Ointment (Zinc Oxide 20% Oint 30 Gm Tube) 1 applic TOP PRN PRN PRN Reason: Skin Care Ondansetron HCl (Ondansetron 4 Mg/2 Ml Vial) 4 mg IVP Q6HR PRN PRN Reason: Nausea / Vomiting Pantoprazole Sodium (Pantoprazole 40 Mg Vial) 40 mg IVP QDAC [facility] Last Admin: 08/23/21 06:51 Dose: 40 mg Documented by: Polyethylene Glycol (Polyethylene Glycol 3350 17 Gm Packet) 17 gm PO DAILY [facility] Last Admin: 08/23/21 09:54 Dose: 17 gm Documented by: Sodium Chloride (Sodium Chloride Flush 0.9% 10 Ml Syringe) 10 ml IVP 0100,0900,1700 [facility] Last Admin: 08/23/21 09:54 Dose: 10 ml Documented by: Sodium Chloride (Sodium Chloride Flush 0.9% 10 Ml Syringe) 10 ml IVP PRN PRN PRN Reason: NEEDED PER PROVIDER ORDERS Last Admin: 08/22/21 04:42 Dose: 30 ml Documented by: Sodium Chloride (Sodium Chloride Flush 0.9% 10 Ml Syringe) 20 ml IVP PRN PRN PRN Reason: After Blood Draw Omeprazole 40 mg PO DAILY 03/06/13 Aspirin [Aspir-Shannen] 325 mg PO DAILY 01/17/14 Atorvastatin Calcium 40 mg PO QPM 04/22/19 Diltiazem HCl [Diltiazem ER] 180 mg PO DAILY 04/22/19 Gabapentin [Neurontin] 100 mg PO QPM 04/22/19 Ipratropium/Albuterol [Duoneb] 3 ml INH Q6H 04/22/19 Furosemide 80 mg PO BID 04/24/19 Fluticasone/Salmeterol [Advair 500-50 Diskus] 1 each INH BID 05/31/19 Insulin Glargine [Lantus Solostar] 0 - 58 unit IM DAILY 10/09/20 Ferrous Gluconate 324 mg PO .[id number] 08/19/21 Losartan [Cozaar] 50 mg PO DAILY 08/19/21 Potassium Chloride [K-Dur] 20 meq PO BID 08/19/21 metFORMIN [Glucophage] 1,000 mg PO DAILY 08/19/21 Objective - Vital Signs/Intake & Output Reviewed Vital Signs: Yes Vital Signs: Vital Signs Temp Pulse Pulse Resp BP BP Pulse Ox 08/23/21 07:00 36.6 C 90 20 111/48 L 94 08/23/21 06:00 90 20 109/64 115/51 L 95 08/23/21 05:02 88 08/23/21 05:00 88 24 125/58 L 115/57 L 98 08/23/21 04:00 36.5 C 52 L 26 H 109/48 L 101/44 L 96 Intake & Output: Intake & Output 08/20/21 08/21/21 08/22/21 08/23/21 23:59 23:59 23:59 23:59 Intake Total 4470.304 2793.473 2748.269 1437.506 Output Total 1813 1817 2225 1268 Balance 2657.304 976.473 523.269 169.506 - Objective General Appearance: positive: Other (Sedated. Appears comfortable.) ENT: positive: Other (ET tube in place.) Respiratory: positive: Rhonchi, Other (Diminished breath sounds. Rhonchi bilaterally.) Cardiovascular: positive: Regular rate & rhythm. negative: Tachycardia, Systolic murmur Abdomen: positive: Non-tender, No distention. negative: Tenderness Extremities: positive: Pedal edema (Trace edema in bilateral lower extremities.) Neurologic/Psychiatric: positive: Other (Sedated. Does not follow commands.) - Lab Results Fish Bones: 08/23/21 04:30 08/23/21 17:00 Other Labs: Lab Results x24hrs 08/23/21 08/23/21 08/23/21 Range/Units 06:00 05:05 04:30 WBC (4.8-10.8) x10^3/uL RBC (4.70-6.10) 10^6/uL Hgb (14.0-18.0) g/dL Hct (42.0-52.0) % MCV (80.0-94.0) fL MCH (27.0-31.0) pg MCHC (32.0-36.0) g/dL RDW (12.0-15.0) % Plt Count (130-450) 10^3/uL MPV (7.4-11.4) fL Neut # (Auto) Lymph # (Auto) [place] # (Auto) Eos # (Auto) Baso # (Auto) Absolute Nucleated RBC Total Counted Band Neuts % (Manual) (0 - 10) % Abnorm Lymph % (Manual) % Myelocytes % ( - 0) % Nucleated RBC % Neutrophils # (Manual) (1.5-6.6) 10^3/uL Lymphocytes # (Manual) (1.5-3.5) 10^3/uL Monocytes # (Manual) (0.0-1.0) 10^3/uL Eosinophils # (Manual) (0-0.7) 10^3/uL Basophils # (Manual) (0-0.1) 10^3/uL Nucleated RBCs % Differential Comment WBC Morphology (NORMAL) Platelet Estimate (NORMAL) Platelet Morphology (NORMAL) RBC Morph Micro Appear (NORMAL) Bld Gas Analysis Time 0518 Sample Site A-LINE ABG pH 7.43 (7.35-7.45) ABG pCO2 37 (34-45) mmHg ABG pO2 61 L (80-100) mmHg ABG HCO3 23.9 (22.0-26.0) mmol/L ABG Total CO2 25.1 (21.0-29.0) MMOL/L ABG O2 Saturation 89 L (94-98) % ABG Base Excess -0.3 (-2.0-3.0) mmol/L Endy Test NOT APPLICABLE VBG pH 7.412 H (7.31-7.41) Ionized Calcium 1.06 L (1.15-1.33) mmol/L Respiration Rate 24 b/min O2 Delivery Device VENTILATOR Vent Mode ASSIST/CONTROL FiO2 60.00 Tidal Volume 500 mL PEEP 10 cmH2O Sodium (135-145) mmol/L Potassium (3.5-5.0) mmol/L Chloride (101-111) mmol/L Carbon Dioxide (21-32) mmol/L Anion Gap (6-13) BUN (6-20) mg/dL Creatinine (0.6-1.2) mg/dL Estimated GFR (MDRD) (>89) Glucose (70-100) mg/dL POC Whole Bld Glucose 356 H (70 - 100) mg/dL Calcium (8.5-10.3) mg/dL Phosphorus (2.5-4.6) mg/dL Magnesium (1.7-2.8) mg/dL Total Bilirubin (0.2-1.0) mg/dL Direct Bilirubin (0.1-0.5) mg/dL AST (10-42) IU/L ALT (10-60) IU/L Alkaline Phosphatase (42-121) IU/L Total Protein (6.7-8.2) g/dL Albumin (3.2-5.5) g/dL Globulin (2.1-4.2) g/dL 08/23/21 08/23/21 08/22/21 Range/Units 04:30 04:30 23:58 WBC 11.7 H (4.8-10.8) x10^3/uL RBC 3.37 L (4.70-6.10) 10^6/uL Hgb 9.6 L (14.0-18.0) g/dL Hct 31.1 L (42.0-52.0) % MCV 92.3 (80.0-94.0) fL MCH 28.5 (27.0-31.0) pg MCHC 30.9 L (32.0-36.0) g/dL RDW 18.0 H (12.0-15.0) % Plt Count 478 H (130-450) 10^3/uL MPV 9.5 (7.4-11.4) fL Neut # (Auto) Not Reportable Lymph # (Auto) Not Reportable [place] # (Auto) Not Reportable Eos # (Auto) Not Reportable Baso # (Auto) Not Reportable Absolute Nucleated RBC Not Reportable Total Counted 100 Band Neuts % (Manual) 1 (0 - 10) % Abnorm Lymph % (Manual) 0 % Myelocytes % 1 H ( - 0) % Nucleated RBC % Not Reportable Neutrophils # (Manual) 9.4 H (1.5-6.6) 10^3/uL Lymphocytes # (Manual) 1.3 L (1.5-3.5) 10^3/uL Monocytes # (Manual) 0.9 (0.0-1.0) 10^3/uL Eosinophils # (Manual) 0.0 (0-0.7) 10^3/uL Basophils # (Manual) 0.0 (0-0.1) 10^3/uL Nucleated RBCs 1 % Differential Comment MANUAL DIFFERENTIAL WBC Morphology NORMAL APPEARANCE (NORMAL) Platelet Estimate INCREASED (>450,000) (NORMAL) Platelet Morphology NORMAL APPEARANCE (NORMAL) RBC Morph Micro Appear 1+ ANISOCYTOSIS (NORMAL) Bld Gas Analysis Time Sample Site ABG pH (7.35-7.45) ABG pCO2 (34-45) mmHg ABG pO2 (80-100) mmHg ABG HCO3 (22.0-26.0) mmol/L ABG Total CO2 (21.0-29.0) MMOL/L ABG O2 Saturation (94-98) % ABG Base Excess (-2.0-3.0) mmol/L Endy Test VBG pH (7.31-7.41) Ionized Calcium (1.15-1.33) mmol/L Respiration Rate b/min O2 Delivery Device Vent Mode FiO2 Tidal Volume mL PEEP cmH2O Sodium 137 (135-145) mmol/L Potassium 5.6 H (3.5-5.0) mmol/L Chloride 106 (101-111) mmol/L Carbon Dioxide 25 (21-32) mmol/L Anion Gap 6.0 (6-13) BUN 53 H (6-20) mg/dL Creatinine 1.8 H (0.6-1.2) mg/dL Estimated GFR (MDRD) 37 L (>89) Glucose 360 H (70-100) mg/dL POC Whole Bld Glucose 374 H (70 - 100) mg/dL Calcium 7.4 L (8.5-10.3) mg/dL Phosphorus 2.6 (2.5-4.6) mg/dL Magnesium 2.9 H (1.7-2.8) mg/dL Total Bilirubin 0.4 (0.2-1.0) mg/dL Direct Bilirubin 0.1 (0.1-0.5) mg/dL AST 15 (10-42) IU/L ALT 13 (10-60) IU/L Alkaline Phosphatase 57 (42-121) IU/L Total Protein 6.1 L (6.7-8.2) g/dL Albumin 2.3 L (3.2-5.5) g/dL Globulin 3.8 (2.1-4.2) g/dL 08/22/21 08/22/21 Range/Units 17:07 11:49 WBC (4.8-10.8) x10^3/uL RBC (4.70-6.10) 10^6/uL Hgb (14.0-18.0) g/dL Hct (42.0-52.0) % MCV (80.0-94.0) fL MCH (27.0-31.0) pg MCHC (32.0-36.0) g/dL RDW (12.0-15.0) % Plt Count (130-450) 10^3/uL MPV (7.4-11.4) fL Neut # (Auto) Lymph # (Auto) [place] # (Auto) Eos # (Auto) Baso # (Auto) Absolute Nucleated RBC Total Counted Band Neuts % (Manual) (0 - 10) % Abnorm Lymph % (Manual) % Myelocytes % ( - 0) % Nucleated RBC % Neutrophils # (Manual) (1.5-6.6) 10^3/uL Lymphocytes # (Manual) (1.5-3.5) 10^3/uL Monocytes # (Manual) (0.0-1.0) 10^3/uL Eosinophils # (Manual) (0-0.7) 10^3/uL Basophils # (Manual) (0-0.1) 10^3/uL Nucleated RBCs % Differential Comment WBC Morphology (NORMAL) Platelet Estimate (NORMAL) Platelet Morphology (NORMAL) RBC Morph Micro Appear (NORMAL) Bld Gas Analysis Time Sample Site ABG pH (7.35-7.45) ABG pCO2 (34-45) mmHg ABG pO2 (80-100) mmHg ABG HCO3 (22.0-26.0) mmol/L ABG Total CO2 (21.0-29.0) MMOL/L ABG O2 Saturation (94-98) % ABG Base Excess (-2.0-3.0) mmol/L Endy Test VBG pH (7.31-7.41) Ionized Calcium (1.15-1.33) mmol/L Respiration Rate b/min O2 Delivery Device Vent Mode FiO2 Tidal Volume mL PEEP cmH2O Sodium (135-145) mmol/L Potassium (3.5-5.0) mmol/L Chloride (101-111) mmol/L Carbon Dioxide (21-32) mmol/L Anion Gap (6-13) BUN (6-20) mg/dL Creatinine (0.6-1.2) mg/dL Estimated GFR (MDRD) (>89) Glucose (70-100) mg/dL POC Whole Bld Glucose 332 H 249 H (70 - 100) mg/dL Calcium (8.5-10.3) mg/dL Phosphorus (2.5-4.6) mg/dL Magnesium (1.7-2.8) mg/dL Total Bilirubin (0.2-1.0) mg/dL Direct Bilirubin (0.1-0.5) mg/dL AST (10-42) IU/L ALT (10-60) IU/L Alkaline Phosphatase (42-121) IU/L Total Protein (6.7-8.2) g/dL Albumin (3.2-5.5) g/dL Globulin (2.1-4.2) g/dL Assessment/Plan - Problem List (1) Acute and chronic respiratory failure with hypoxia Impression: This is secondary to COVID-19 pneumonia. He continues to make slow improvements each day. His FiO2 is now down to 50%. He remains on a PEEP of 10. We will continue with current vent management and hopes of weaning down his FiO2 over the next 1 to 2 days in hopes of considering potential extubation. Goal oxygen saturation will be greater than 88% given his history of COPD and the fact that he is on 2 L of oxygen at baseline. We will continue Decadron and IV antibiotics. We will also continue therapeutic Lovenox given his D-dimer was quite elevated. We will consider obtaining a CT angiogram once he improves to rule out embolism. This has been delayed due to his acute kidney injury. (2) Pneumonia due to COVID-19 virus Impression: This is a cause of respiratory failure. He remains on IV Decadron. Today is day 5 of antibiotics. Given his slow improvement, we will treat him for 7 days total. Continue with management as mentioned above. (3) On mechanically assisted ventilation Impression: He continues to require mechanical ventilation but he does have improvement in his FiO2 requirements. We will continue to sedate him with fentanyl and Versed which he has done quite well with. I suspect he may have delirium once we start to wake him up a little bit and he may need Precedex. Once his FiO2 requirements get to 40% then we will start to perform daily sedation vacations in preparation for extubation. (4) Gram-positive bacteremia Impression: Show blood cultures from admission grew gram-positive bacilli in the aerobic bottle and gram-positive cocci in clusters in the anaerobic bottle. The other set is negative to date. I suspect is likely a contaminant given the 2 different bacterias growing in same set. Repeat cultures have been negative to date. This is likely contaminant and we will continue antibiotics for the pneumonia. (5) Acute kidney injury superimposed on CKD Impression: His renal function continues to improve. His creatinine is down to 1.8 today compared to 2.5 on admission. Although he does have trace lower extremity edema, I do believe he is slightly hemoconcentrated and dry as his white blood cell count incompetent account have increased. We will give him a trial of 500 mL of lactated Ringer's today. Continue to avoid nephrotoxins and monitor renal function. (6) Iron deficiency anemia Impression: His hemoglobin is stable. We will continue oral iron when appropriate. (7) Insulin dependent diabetes mellitus Impression: His blood glucose been quite elevated after initiation of tube feeds and the fact that he is on Decadron. I have increased his morning dose of Lantus to 70 units. I have also added 6 units of NovoLog every 6 hours. We will continue to adjust his insulin based off of his sliding scale requirements. Continue with tube feeds. (8) Hypotension Impression: This is resolved. This was secondary to sedation.
[2021-08-23] MEDS: cefTRIAXone 2 GM in SODIUM CHLORIDE 0.9% MINIBAG 100 ML IV SCH (08:26)
[2021-08-23] MEDS: DEXAMETHASONE 10 MG/ML VIAL IVP SCH (08:28)
[2021-08-23] MEDS: ENOXAPARIN 150 MG/ML SYRINGE SUBQ SCH ×2 (08:31→20:41)
[2021-08-23] MEDS ORDERED: INSULIN GLARGINE 300 UNIT/3 ML PEN SUBQ SCH (09:00)
[2021-08-23] MEDS: CHOLECALCIFEROL 25 MCG TABLET PO SCH (09:53)
[2021-08-23] MEDS: CHLORHEXIDINE GLUCONATE 15 ML UDC PO SCH ×2 (09:53→20:41)
[2021-08-23] MEDS: DOXYCYCLINE INJ 100 MG in SODIUM CHLORIDE 0.9% MINIBAG 100 ML IV SCH ×2 (09:54→20:41)
[2021-08-23] MEDS: polyethylene glycoL 3350 17 GM PACKET PO SCH (09:54)
[2021-08-23 14:10] LABS: CALCIUM 7.6 mg/dL (8.5-10.3); CREATININE 1.8 mg/dL (0.6-1.2)
[2021-08-23 14:14] LABS: POTASSIUM 6.5 mmol/L (3.5-5.0)
[2021-08-23] MEDS ORDERED: INSULIN REGULAR HUMAN 300 UNIT/3 ML VIAL IVP ONE ×4 (14:17→21:48)
[2021-08-23] MEDS: SODIUM CHLORIDE 0.9% 500 ML IV PRN (14:57)
[2021-08-23 17:48] LABS: CALCIUM 7.6 mg/dL (8.5-10.3); CREATININE 1.7 mg/dL (0.6-1.2)
[2021-08-23 17:50] LABS: POTASSIUM 6.5 mmol/L (3.5-5.0)
[2021-08-23] MEDS ORDERED: SODIUM POLYSTYRENE SULFONATE 15 GM/60 ML BOTTLE PO ONE (17:51)
[2021-08-23] MEDS ORDERED: CALCIUM GLUCONATE 2,000 MG in SODIUM CHLORIDE 0.9% 100ML 100 ML IV ONE (19:11)
[2021-08-23] MEDS: ATORVASTATIN 40 MG TABLET PO SCH (20:41)
[2021-08-23 21:44] LABS: CALCIUM 8.4 mg/dL (8.5-10.3); CREATININE 1.8 mg/dL (0.6-1.2)
[2021-08-23 21:46] LABS: POTASSIUM 6.4 mmol/L (3.5-5.0)
[2021-08-23] MEDS ORDERED: SODIUM POLYSTYRENE SULFONATE 15 GM/60 ML BOTTLE PO STA (21:49)
[2021-08-24] MEDS: MIDAZOLAM DRIP 50 MG/50 ML 50 MG/50 ML BAG IV SCH ×5 (00:45→20:13)
[2021-08-24] MEDS: fentaNYL 2,500 MCG/250 ML 2,500 MCG/250 ML BAG IV SCH ×3 (04:52→14:35)
[2021-08-24 05:04] LABS: CALCIUM, IONIZED 1.14 mmol/L (1.15-1.33); VBG PH 7.333 (7.31-7.41)
[2021-08-24 05:10] LABS: BASOPHILS % (AUTO) 0.2 %; HCT - HEMATOCRIT 32.9 % (42.0-52.0); HGB - HEMOGLOBIN 10.1 g/dL (14.0-18.0); LYMPHOCYTES % (AUTO) 7.8 %; MEAN CORPUSCULAR HEMOGLOBIN 29.1 pg (27.0-31.0); MEAN CORPUSCULAR HGB CONC 30.7 g/dL (32.0-36.0); MEAN CORPUSCULAR VOLUME 94.8 fL (80.0-94.0); MEAN PLATELET VOLUME 9.6 fL (7.4-11.4); NEUTROPHILS % (AUTO) 73.7 %; PLT - PLATELET COUNT 468 10^3/uL (130-450); RED BLOOD COUNT 3.47 10^6/uL (4.70-6.10); RED CELL DISTRIBUTION WIDTH 18.6 % (12.0-15.0); WHITE BLOOD COUNT 12.1 x10^3/uL (4.8-10.8)
[2021-08-24 05:14] LABS: ABNORMAL LYMPHS % (MANUAL) 0 %
[2021-08-24 05:20] LABS: ALBUMIN 2.3 g/dL (3.2-5.5); BILIRUBIN,DIRECT 0.1 mg/dL (0.1-0.5); BILIRUBIN,TOTAL 0.4 mg/dL (0.2-1.0); CALCIUM 7.9 mg/dL (8.5-10.3); CREATININE 1.6 mg/dL (0.6-1.2); MAGNESIUM 2.6 mg/dL (1.7-2.8); PHOSPHORUS 3.9 mg/dL (2.5-4.6); TOTAL PROTEIN 6.1 g/dL (6.7-8.2)
[2021-08-24 05:27] LABS: ABG BASE EXCESS 2.9 mmol/L (-2.0-3.0); ABG HCO3 28.3 mmol/L (22.0-26.0); ABG PCO2 47 mmHg (34-45); ABG TCO2 29.8 MMOL/L (21.0-29.0)
[2021-08-24 05:28] LABS: ABG MODE OF VENTILATION ASSIST/CONTROL; ABG RESPIRATORY RATE 20 b/min; ALLEN TEST POSITIVE
[2021-08-24 05:29] LABS: ABG OXYGEN SATURATION 83 % (94-98); ABG PO2 53 mmHg (80-100)
[2021-08-24 05:33] LABS: BAND NEUTROPHILS % (MANUAL) 1 %; LYMPHOCYTES % (MANUAL) 8 %; MONOCYTES # (MANUAL) 1.6 10^3/uL (0.0-1.0); MYELOCYTES % (MANUAL) 1 %; NEUTROPHILS # (MANUAL) 9.4 10^3/uL (1.5-6.6); PLATELET ESTIMATE, MANUAL NORMAL (130-450,000) (NORMAL); PLATELET MORPHOLOGY NORMAL APPEARANCE (NORMAL); WBC MORPHOLOGY (MULTIPLE) NORMAL APPEARANCE (NORMAL)
[2021-08-24 05:34] LABS: DIFFERENTIAL COMMENT MANUAL DIFFERENTIAL
[2021-08-24] MEDS ORDERED: CALCIUM GLUCONATE 1,000 MG in SODIUM CHLORIDE 0.9% 50 ML IV ONE (05:38)
[2021-08-24] MEDS: INSULIN REGULAR HUMAN 300 UNIT/3 ML VIAL SUBQ SCH (05:51)
[2021-08-24] MEDS: PANTOPRAZOLE 40 MG VIAL IVP SCH (06:00)
[2021-08-24] MEDS ORDERED: INSULIN REGULAR HUMAN 300 UNIT/3 ML VIAL IVP ONE (07:25)
--- NOTE | 2021-08-24 07:46 | PROVIDER PROGRESS NOTE ---
Subjective - Prog Note Date Prog Note Date: 08/24/21 - Subjective Subjective: He remains intubated and sedated. Current Medications - Current Medications Current Medications: Active Medications Albuterol (Albuterol Neb 2.5 Mg/3 Ml) 2.5 mg INH Q4HR PRN PRN Reason: Wheezing Last Admin: 08/22/21 21:41 Dose: 2.5 mg Documented by: Atorvastatin Calcium (Atorvastatin 40 Mg Tablet) 40 mg PO QPM DINESH Last Admin: 08/23/21 20:41 Dose: 40 mg Documented by: Chlorhexidine Gluconate (Chlorhexidine Gluconate 15 Ml Udc) 15 ml PO BID [facility] Last Admin: 08/24/21 08:54 Dose: 15 ml Documented by: Cholecalciferol (Cholecalciferol 25 Mcg Tablet) 50 mcg PO DAILY [facility] Last Admin: 08/24/21 09:00 Dose: 50 mcg Documented by: Dexamethasone (Dexamethasone 10 Mg/Ml Vial) 6 mg IVP DAILY DINESH Stop: 08/28/21 09:01 Last Admin: 08/24/21 08:53 Dose: 6 mg Documented by: Enoxaparin Sodium (Enoxaparin 150 Mg/Ml Syringe) 150 mg SUBQ BID [facility] Last Admin: 08/24/21 08:40 Dose: 150 mg Documented by: Doxycycline Hyclate 100 mg/ (Sodium Chloride) 100 mls @ 100 mls/hr IV BID [facility] Stop: 08/25/21 23:00 Last Infusion: 08/24/21 10:17 Dose: Infused Documented by: Fentanyl (Fentanyl) 2,500 mcg in 250 mls @ 15 mls/hr IV .[id number] [facility]; Protocol Last Titration: 08/24/21 16:43 Dose: 2 mcg/kg/hr, 30 mls/hr Documented by: Sodium Chloride (Normal Saline 0.9%) 500 mls @ 20 mls/hr IV Q24H PRN PRN Reason: TKO RATE Last Infusion: 08/24/21 15:30 Dose: 20 mls/hr Documented by: Midazolam HCl (Versed Drip 50 Mg/50 Ml) 50 mg in 50 mls @ 6.14 mls/hr IV .Q8H9M [facility]; Protocol Last Admin: 08/24/21 15:30 Dose: 0.07 mg/kg/hr, 10.745 mls/hr Documented by: Insulin Human Regular 100 unit (/ Sodium Chloride) 100 mls @ 5 mls/hr IV .Q20H [facility]; Protocol Last Admin: 08/24/21 12:06 Dose: 5 unit/hr, 5 mls/hr Documented by: Ceftriaxone Sodium 2 gm/ (Sodium Chloride) 100 mls @ 200 mls/hr IV DAILY [facility] Stop: 08/25/21 09:29 Last Infusion: 08/24/21 13:10 Dose: Infused Documented by: Multi-Ingredient Ointment (Zinc Oxide 20% Oint 30 Gm Tube) 1 applic TOP PRN PRN PRN Reason: Skin Care Ondansetron HCl (Ondansetron 4 Mg/2 Ml Vial) 4 mg IVP Q6HR PRN PRN Reason: Nausea / Vomiting Pantoprazole Sodium (Pantoprazole 40 Mg Vial) 40 mg IVP QDAC [facility] Last Admin: 08/24/21 06:00 Dose: 40 mg Documented by: Polyethylene Glycol (Polyethylene Glycol 3350 17 Gm Packet) 17 gm PO DAILY [facility] Last Admin: 08/24/21 09:00 Dose: 17 gm Documented by: Sodium Chloride (Sodium Chloride Flush 0.9% 10 Ml Syringe) 10 ml IVP 0100,0900,1700 [facility] Last Admin: 08/24/21 08:54 Dose: 10 ml Documented by: Sodium Chloride (Sodium Chloride Flush 0.9% 10 Ml Syringe) 10 ml IVP PRN PRN PRN Reason: NEEDED PER PROVIDER ORDERS Last Admin: 08/22/21 04:42 Dose: 30 ml Documented by: Sodium Chloride (Sodium Chloride Flush 0.9% 10 Ml Syringe) 20 ml IVP PRN PRN PRN Reason: After Blood Draw Omeprazole 40 mg PO DAILY 03/06/13 Aspirin [Aspir-Shannen] 325 mg PO DAILY 01/17/14 Atorvastatin Calcium 40 mg PO QPM 04/22/19 Diltiazem HCl [Diltiazem ER] 180 mg PO DAILY 04/22/19 Gabapentin [Neurontin] 100 mg PO QPM 04/22/19 Ipratropium/Albuterol [Duoneb] 3 ml INH Q6H 04/22/19 Furosemide 80 mg PO BID 04/24/19 Fluticasone/Salmeterol [Advair 500-50 Diskus] 1 each INH BID 05/31/19 Insulin Glargine [Lantus Solostar] 0 - 58 unit IM DAILY 10/09/20 Ferrous Gluconate 324 mg PO .[id number] 08/19/21 Losartan [Cozaar] 50 mg PO DAILY 08/19/21 Potassium Chloride [K-Dur] 20 meq PO BID 08/19/21 metFORMIN [Glucophage] 1,000 mg PO DAILY 08/19/21 Objective - Vital Signs/Intake & Output Reviewed Vital Signs: Yes Vital Signs: Vital Signs Pulse Pulse Resp BP Pulse Ox 08/24/21 07:00 43 L 22 150/52 H 97 08/24/21 06:03 92 08/24/21 06:00 44 L 22 147/55 H 96 08/24/21 05:00 47 L 20 140/48 H 89 L 08/24/21 04:00 92 50 L 20 145/59 H 95 Intake & Output: Intake & Output 08/21/21 08/22/21 08/23/21 08/24/21 23:59 23:59 23:59 23:59 Intake Total 2793.473 2748.269 5601.506 863.250 Output Total 1817 2225 4693 1235 Balance 976.473 523.269 908.506 -371.750 - Objective General Appearance: positive: Other (Sedated.) ENT: positive: ENT inspection nml, Other (ET tube in place.) Neck: positive: Nml inspection Respiratory: positive: Rhonchi, Other (Diminished breath sounds.) Cardiovascular: positive: Bradycardia. negative: Irregularly irregular, Tachycardia Abdomen: positive: Non-tender, No distention. negative: Tenderness Skin: positive: Warm, Dry Extremities: positive: No pedal edema - Lab Results Fish Bones: 08/24/21 04:20 08/24/21 09:30 Other Labs: Lab Results x24hrs 08/24/21 08/24/21 08/24/21 Range/Units 05:10 04:20 04:20 WBC 12.1 H (4.8-10.8) x10^3/uL RBC 3.47 L (4.70-6.10) 10^6/uL Hgb 10.1 L (14.0-18.0) g/dL Hct 32.9 L (42.0-52.0) % MCV 94.8 H (80.0-94.0) fL MCH 29.1 (27.0-31.0) pg MCHC 30.7 L (32.0-36.0) g/dL RDW 18.6 H (12.0-15.0) % Plt Count 468 H (130-450) 10^3/uL MPV 9.6 (7.4-11.4) fL Neut # (Auto) Not Reportable Lymph # (Auto) Not Reportable [place] # (Auto) Not Reportable Eos # (Auto) Not Reportable Baso # (Auto) Not Reportable Absolute Nucleated RBC Not Reportable Total Counted 100 Band Neuts % (Manual) 1 (0 - 10) % Abnorm Lymph % (Manual) 0 % Myelocytes % 1 H ( - 0) % Nucleated RBC % Not Reportable Neutrophils # (Manual) 9.4 H (1.5-6.6) 10^3/uL Lymphocytes # (Manual) 1.0 L (1.5-3.5) 10^3/uL Monocytes # (Manual) 1.6 H (0.0-1.0) 10^3/uL Eosinophils # (Manual) 0.0 (0-0.7) 10^3/uL Basophils # (Manual) 0.0 (0-0.1) 10^3/uL Differential Comment MANUAL DIFFERENTIAL WBC Morphology NORMAL APPEARANCE (NORMAL) Platelet Estimate NORMAL (130-450,000) (NORMAL) Platelet Morphology NORMAL APPEARANCE (NORMAL) RBC Morph Micro Appear 1+ ANISOCYTOSIS (NORMAL) Bld Gas Analysis Time 0526 Sample Site RIGHT RADIAL ABG pH 7.40 (7.35-7.45) ABG pCO2 47 H (34-45) mmHg ABG pO2 53 L* (80-100) mmHg ABG HCO3 28.3 H (22.0-26.0) mmol/L ABG Total CO2 29.8 H (21.0-29.0) MMOL/L ABG O2 Saturation 83 L* (94-98) % ABG Base Excess 2.9 (-2.0-3.0) mmol/L Endy Test POSITIVE VBG pH (7.31-7.41) Ionized Calcium (1.15-1.33) mmol/L Respiration Rate 20 b/min O2 Delivery Device VENTILATOR Vent Mode ASSIST/CONTROL FiO2 50.00 Tidal Volume 500 mL PEEP 10 cmH2O Sodium 140 (135-145) mmol/L Potassium 6.0 H* (3.5-5.0) mmol/L Chloride 104 (101-111) mmol/L Carbon Dioxide 30 (21-32) mmol/L Anion Gap 6.0 (6-13) BUN 49 H (6-20) mg/dL Creatinine 1.6 H (0.6-1.2) mg/dL Estimated GFR (MDRD) 42 L (>89) Glucose 361 H (70-100) mg/dL POC Whole Bld Glucose (70 - 100) mg/dL Calcium 7.9 L (8.5-10.3) mg/dL Phosphorus 3.9 (2.5-4.6) mg/dL Magnesium 2.6 (1.7-2.8) mg/dL Total Bilirubin 0.4 (0.2-1.0) mg/dL Direct Bilirubin 0.1 (0.1-0.5) mg/dL AST 13 (10-42) IU/L ALT 13 (10-60) IU/L Alkaline Phosphatase 55 (42-121) IU/L Total Protein 6.1 L (6.7-8.2) g/dL Albumin 2.3 L (3.2-5.5) g/dL Globulin 3.8 (2.1-4.2) g/dL 08/24/21 08/23/21 08/23/21 Range/Units 04:00 22:57 21:20 WBC (4.8-10.8) x10^3/uL RBC (4.70-6.10) 10^6/uL Hgb (14.0-18.0) g/dL Hct (42.0-52.0) % MCV (80.0-94.0) fL MCH (27.0-31.0) pg MCHC (32.0-36.0) g/dL RDW (12.0-15.0) % Plt Count (130-450) 10^3/uL MPV (7.4-11.4) fL Neut # (Auto) Lymph # (Auto) [place] # (Auto) Eos # (Auto) Baso # (Auto) Absolute Nucleated RBC Total Counted Band Neuts % (Manual) (0 - 10) % Abnorm Lymph % (Manual) % Myelocytes % ( - 0) % Nucleated RBC % Neutrophils # (Manual) (1.5-6.6) 10^3/uL Lymphocytes # (Manual) (1.5-3.5) 10^3/uL Monocytes # (Manual) (0.0-1.0) 10^3/uL Eosinophils # (Manual) (0-0.7) 10^3/uL Basophils # (Manual) (0-0.1) 10^3/uL Differential Comment WBC Morphology (NORMAL) Platelet Estimate (NORMAL) Platelet Morphology (NORMAL) RBC Morph Micro Appear (NORMAL) Bld Gas Analysis Time Sample Site ABG pH (7.35-7.45) ABG pCO2 (34-45) mmHg ABG pO2 (80-100) mmHg ABG HCO3 (22.0-26.0) mmol/L ABG Total CO2 (21.0-29.0) MMOL/L ABG O2 Saturation (94-98) % ABG Base Excess (-2.0-3.0) mmol/L Endy Test VBG pH 7.333 (7.31-7.41) Ionized Calcium 1.14 L (1.15-1.33) mmol/L Respiration Rate b/min O2 Delivery Device Vent Mode FiO2 Tidal Volume mL PEEP cmH2O Sodium 140 (135-145) mmol/L Potassium 6.4 H* (3.5-5.0) mmol/L Chloride 107 (101-111) mmol/L Carbon Dioxide 28 (21-32) mmol/L Anion Gap 5.0 L (6-13) BUN 50 H (6-20) mg/dL Creatinine 1.8 H (0.6-1.2) mg/dL Estimated GFR (MDRD) 37 L (>89) Glucose 326 H (70-100) mg/dL POC Whole Bld Glucose 324 H (70 - 100) mg/dL Calcium 8.4 L (8.5-10.3) mg/dL Phosphorus (2.5-4.6) mg/dL Magnesium (1.7-2.8) mg/dL Total Bilirubin (0.2-1.0) mg/dL Direct Bilirubin (0.1-0.5) mg/dL AST (10-42) IU/L ALT (10-60) IU/L Alkaline Phosphatase (42-121) IU/L Total Protein (6.7-8.2) g/dL Albumin (3.2-5.5) g/dL Globulin (2.1-4.2) g/dL 08/23/21 08/23/21 08/23/21 Range/Units 17:00 13:55 11:57 WBC (4.8-10.8) x10^3/uL RBC (4.70-6.10) 10^6/uL Hgb (14.0-18.0) g/dL Hct (42.0-52.0) % MCV (80.0-94.0) fL MCH (27.0-31.0) pg MCHC (32.0-36.0) g/dL RDW (12.0-15.0) % Plt Count (130-450) 10^3/uL MPV (7.4-11.4) fL Neut # (Auto) Lymph # (Auto) [place] # (Auto) Eos # (Auto) Baso # (Auto) Absolute Nucleated RBC Total Counted Band Neuts % (Manual) (0 - 10) % Abnorm Lymph % (Manual) % Myelocytes % ( - 0) % Nucleated RBC % Neutrophils # (Manual) (1.5-6.6) 10^3/uL Lymphocytes # (Manual) (1.5-3.5) 10^3/uL Monocytes # (Manual) (0.0-1.0) 10^3/uL Eosinophils # (Manual) (0-0.7) 10^3/uL Basophils # (Manual) (0-0.1) 10^3/uL Differential Comment WBC Morphology (NORMAL) Platelet Estimate (NORMAL) Platelet Morphology (NORMAL) RBC Morph Micro Appear (NORMAL) Bld Gas Analysis Time Sample Site ABG pH (7.35-7.45) ABG pCO2 (34-45) mmHg ABG pO2 (80-100) mmHg ABG HCO3 (22.0-26.0) mmol/L ABG Total CO2 (21.0-29.0) MMOL/L ABG O2 Saturation (94-98) % ABG Base Excess (-2.0-3.0) mmol/L Endy Test VBG pH (7.31-7.41) Ionized Calcium (1.15-1.33) mmol/L Respiration Rate b/min O2 Delivery Device Vent Mode FiO2 Tidal Volume mL PEEP cmH2O Sodium 136 137 (135-145) mmol/L Potassium 6.5 H* 6.5 H* (3.5-5.0) mmol/L Chloride 104 105 (101-111) mmol/L Carbon Dioxide 27 27 (21-32) mmol/L Anion Gap 5.0 L 5.0 L (6-13) BUN 52 H 52 H (6-20) mg/dL Creatinine 1.7 H 1.8 H (0.6-1.2) mg/dL Estimated GFR (MDRD) 39 L 37 L (>89) Glucose 376 H 366 H (70-100) mg/dL POC Whole Bld Glucose 349 H (70 - 100) mg/dL Calcium 7.6 L 7.6 L (8.5-10.3) mg/dL Phosphorus (2.5-4.6) mg/dL Magnesium (1.7-2.8) mg/dL Total Bilirubin (0.2-1.0) mg/dL Direct Bilirubin (0.1-0.5) mg/dL AST (10-42) IU/L ALT (10-60) IU/L Alkaline Phosphatase (42-121) IU/L Total Protein (6.7-8.2) g/dL Albumin (3.2-5.5) g/dL Globulin (2.1-4.2) g/dL Assessment/Plan - Problem List (1) Acute and chronic respiratory failure with hypoxia Impression: This is secondary to COVID-19 pneumonia. Unfortunately, his FiO2 requirements are increased today and he is requiring 60% FiO2 and a PEEP of 10. Repeat chest x-ray today continues to reveal persistent bilateral infiltrates. We will keep him on Decadron for the COVID-19 pneumonia. He is also on antibiotics for suspected bacterial component. I was hoping we could wean him down to FiO2 40% today but this will need to be delayed. We will continue with current vent management. (2) Pneumonia due to COVID-19 virus Impression: This is the cause of respiratory failure. He remains on IV Decadron. Today is day 6 of antibiotics. We will plan to continue IV antibiotics for 7 days. (3) On mechanically assisted ventilation Impression: He continues to require mechanical ventilation and is now requiring an FiO2 50% and a PEEP of 10. We will continue management as mentioned above. Sedation with fentanyl and Versed which she has done quite well with regards to limiting agitation. We will look to potentially switch to propofol and wean the Versed in preparation of a wean trial over the next 2 days. (4) Gram-positive bacteremia Impression: Initial blood cultures from admission grew gram-positive bacilli in the aerobic bottle and gram-positive cocci in clusters in anaerobic bottle. The other set is negative to date and this is likely a contaminant. Repeat cultures have been negative to date. Tomorrow we will active antibiotics for the pneumonia. (5) Acute kidney injury superimposed on CKD Impression: His renal function is now back to baseline. We will continue to avoid nephrotoxins and monitor his renal function. (6) Insulin dependent diabetes mellitus Impression: His blood glucose has been poorly controlled due to the steroids and initiation of tube feeds. We will start him on insulin drip today. (7) Hyperkalemia Impression: He was hyperkalemic yesterday evening and required multiple doses of IV insulin. This was likely due to the hyperglycemia. He did receive calcium as his EKG revealed a prolonged interval and widened QRS. Potassium today is now improved down to 5.4. He is now on insulin drip which should help with the hyperkalemia. (8) Iron deficiency anemia Impression: His hemoglobin is stable. We will continue oral iron when appropriate. (9) Hypotension Impression: This is resolved. This was secondary to sedation.
[2021-08-24] MEDS: ENOXAPARIN 150 MG/ML SYRINGE SUBQ SCH ×2 (08:40→20:00)
[2021-08-24] MEDS: DOXYCYCLINE INJ 100 MG in SODIUM CHLORIDE 0.9% MINIBAG 100 ML IV SCH ×2 (08:46→20:00)
[2021-08-24] MEDS: DEXAMETHASONE 10 MG/ML VIAL IVP SCH (08:53)
[2021-08-24] MEDS: SODIUM CHLORIDE FLUSH 0.9% 10 ML SYRINGE IVP SCH ×2 (08:54→20:01)
[2021-08-24] MEDS: CHLORHEXIDINE GLUCONATE 15 ML UDC PO SCH ×2 (08:54→20:00)
--- NOTE | 2021-08-24 08:57 | XRAY Report ---
PROCEDURE: Chest 1 View X-Ray INDICATIONS: Follow up infiltrates. Intubated. TECHNIQUE: One view of the chest was acquired. COMPARISON: FINDINGS: Surgical changes and devices: None. Lungs and pleura: No pleural effusions or pneumothorax. Diffuse bilateral airspace opacities are unchanged compared to 08/24/2021. Mediastinum: Mediastinal contours appear normal. Heart size is no rmal. Bones and chest wall: No suspicious bony lesions. Overlying soft tissues appear unremarkable. IMPRESSION: 1. Diffuse bilateral airspace opacities consistent with CHF or a diffuse infectious process. No signi ficant interval change. 2. Endotracheal tube is well-positioned. The nasogastric tube cannot be seen distally. Reviewed by: Diaz Coker on 08/24/2021 7:56 AM ALE[facility]ANDR[facility] Approved by: Diaz Coker on 08/24/2021 7:56 AM [facility] Station ID: [id number]
[2021-08-24] MEDS ORDERED: INSULIN GLARGINE 300 UNIT/3 ML PEN SUBQ SCH (09:00)
[2021-08-24] MEDS: CHOLECALCIFEROL 25 MCG TABLET PO SCH (09:00)
[2021-08-24] MEDS: polyethylene glycoL 3350 17 GM PACKET PO SCH (09:00)
[2021-08-24] MEDS ORDERED: LACTATED RINGERS 1,000 ML IV ONE (09:17)
[2021-08-24 09:26] LABS: ALBUMIN 2.4 g/dL (3.2-5.5); ALBUMIN/GLOBULIN RATIO 0.7 (1.0-2.2); BILIRUBIN,TOTAL 0.7 mg/dL (0.2-1.0); CALCIUM 8.1 mg/dL (8.5-10.3); CREATININE 1.6 mg/dL (0.6-1.2); TOTAL PROTEIN 5.9 g/dL (6.7-8.2)
[2021-08-24 09:27] LABS: POTASSIUM 6.1 mmol/L (3.5-5.0)
[2021-08-24 09:46] LABS: CALCIUM 8.1 mg/dL (8.5-10.3); CREATININE 1.7 mg/dL (0.6-1.2); POTASSIUM 5.4 mmol/L (3.5-5.0)
[2021-08-24] MEDS ORDERED: INSULIN REGULAR HUMAN 100 UNIT in SODIUM CHLORIDE 0.9% 100ML 99 ML IV ONE (10:20)
[2021-08-24] MEDS: cefTRIAXone 2 GM in SODIUM CHLORIDE 0.9% MINIBAG 100 ML IV SCH (12:05)
[2021-08-24] MEDS: INSULIN REGULAR HUMAN 100 UNIT in SODIUM CHLORIDE 0.9% 100ML 99 ML IV SCH (12:06)
[2021-08-24 19:00] LABS: CREATININE 1.5 mg/dL (0.6-1.2); POTASSIUM 5.6 mmol/L (3.5-5.0)
[2021-08-24] MEDS: ATORVASTATIN 40 MG TABLET PO SCH (20:00)
[2021-08-25] MEDS: fentaNYL 2,500 MCG/250 ML 2,500 MCG/250 ML BAG IV SCH ×4 (00:18→15:27)
[2021-08-25] MEDS: SODIUM CHLORIDE FLUSH 0.9% 10 ML SYRINGE IVP SCH ×3 (00:19→16:52)
[2021-08-25] MEDS: MIDAZOLAM DRIP 50 MG/50 ML 50 MG/50 ML BAG IV SCH ×2 (03:05→10:28)
[2021-08-25 05:33] LABS: BASOPHILS % (AUTO) 0.4 %; HGB - HEMOGLOBIN 10.8 g/dL (14.0-18.0); MEAN CORPUSCULAR HEMOGLOBIN 28.3 pg (27.0-31.0); MEAN CORPUSCULAR VOLUME 94.5 fL (80.0-94.0); MEAN PLATELET VOLUME 9.7 fL (7.4-11.4); MONOCYTES % (AUTO) 9.7 %; NEUTROPHILS % (AUTO) 75.1 %; PLT - PLATELET COUNT 492 10^3/uL (130-450); RED BLOOD COUNT 3.81 10^6/uL (4.70-6.10); RED CELL DISTRIBUTION WIDTH 18.7 % (12.0-15.0); WHITE BLOOD COUNT 15.4 x10^3/uL (4.8-10.8)
[2021-08-25 05:35] LABS: CALCIUM 8.2 mg/dL (8.5-10.3); CREATININE 1.3 mg/dL (0.6-1.2); MAGNESIUM 2.5 mg/dL (1.7-2.8); POTASSIUM 5.3 mmol/L (3.5-5.0)
[2021-08-25 05:45] LABS: ABNORMAL LYMPHS % (MANUAL) 0 %; BAND NEUTROPHILS % (MANUAL) 0 %
[2021-08-25 05:54] LABS: VBG PH 7.329 (7.31-7.41)
[2021-08-25 05:55] LABS: CALCIUM, IONIZED 1.15 mmol/L (1.15-1.33)
[2021-08-25] MEDS: PANTOPRAZOLE 40 MG VIAL IVP SCH (06:00)
[2021-08-25] MEDS: INSULIN REGULAR HUMAN 100 UNIT in SODIUM CHLORIDE 0.9% 100ML 99 ML IV SCH (06:04)
[2021-08-25 06:11] LABS: LYMPHOCYTES # (MANUAL) 1.7 10^3/uL (1.5-3.5); LYMPHOCYTES % (MANUAL) 11 %; METAMYELOCYTES % (MANUAL) 1 %; MONOCYTES # (MANUAL) 1.2 10^3/uL (0.0-1.0); MYELOCYTES % (MANUAL) 3 %; NEUTROPHILS # (MANUAL) 11.9 10^3/uL (1.5-6.6)
[2021-08-25 06:12] LABS: DIFFERENTIAL COMMENT MANUAL DIFFERENTIAL; PLATELET ESTIMATE, MANUAL INCREASED (>450,000) (NORMAL); PLATELET MORPHOLOGY NORMAL APPEARANCE (NORMAL); WBC MORPHOLOGY (MULTIPLE) NORMAL APPEARANCE (NORMAL)
--- NOTE | 2021-08-25 07:34 | PROVIDER PROGRESS NOTE ---
Subjective - Prog Note Date Prog Note Date: 08/25/21 - Subjective Subjective: Remains intubated and sedated. Current Medications - Current Medications Current Medications: Active Medications Albuterol (Albuterol Neb 2.5 Mg/3 Ml) 2.5 mg INH Q4HR PRN PRN Reason: Wheezing Last Admin: 08/22/21 21:41 Dose: 2.5 mg Documented by: Atorvastatin Calcium (Atorvastatin 40 Mg Tablet) 40 mg PO QPM [facility] Last Admin: 08/24/21 20:00 Dose: 40 mg Documented by: Chlorhexidine Gluconate (Chlorhexidine Gluconate 15 Ml Udc) 15 ml PO BID [facility] Last Admin: 08/25/21 09:48 Dose: 15 ml Documented by: Cholecalciferol (Cholecalciferol 25 Mcg Tablet) 50 mcg PO DAILY [facility] Last Admin: 08/25/21 09:48 Dose: 50 mcg Documented by: Dexamethasone (Dexamethasone 10 Mg/Ml Vial) 6 mg IVP DAILY [facility] Stop: 08/28/21 09:01 Last Admin: 08/25/21 09:48 Dose: 6 mg Documented by: Enoxaparin Sodium (Enoxaparin 150 Mg/Ml Syringe) 150 mg SUBQ BID [facility] Last Admin: 08/25/21 09:49 Dose: 150 mg Documented by: Doxycycline Hyclate 100 mg/ (Sodium Chloride) 100 mls @ 100 mls/hr IV BID [facility] Stop: 08/25/21 23:00 Last Infusion: 08/25/21 10:50 Dose: Infused Documented by: Fentanyl (Fentanyl) 2,500 mcg in 250 mls @ 15 mls/hr IV .[id number] [facility]; Protocol Last Titration: 08/25/21 13:00 Dose: 4 mcg/kg/hr, 60 mls/hr Documented by: Sodium Chloride (Normal Saline 0.9%) 500 mls @ 20 mls/hr IV Q24H PRN PRN Reason: TKO RATE Last Infusion: 08/24/21 19:46 Dose: Infused Documented by: Insulin Human Regular 100 unit (/ Sodium Chloride) 100 mls @ 5 mls/hr IV .Q20H [facility]; Protocol Last Titration: 08/25/21 13:00 Dose: 5 unit/hr, 5 mls/hr Documented by: Propofol (Diprivan) 1,000 mg in 100 mls @ 9.6 mls/hr IV .[id number] [facility]; Protocol Last Admin: 08/25/21 13:12 Dose: 10 mcg/kg/min, 9.6 mls/hr Documented by: Multi-Ingredient Ointment (Zinc Oxide 20% Oint 30 Gm Tube) 1 applic TOP PRN PRN PRN Reason: Skin Care Ondansetron HCl (Ondansetron 4 Mg/2 Ml Vial) 4 mg IVP Q6HR PRN PRN Reason: Nausea / Vomiting Pantoprazole Sodium (Pantoprazole 40 Mg Vial) 40 mg IVP QDAC [facility] Last Admin: 08/25/21 06:00 Dose: 40 mg Documented by: Polyethylene Glycol (Polyethylene Glycol 3350 17 Gm Packet) 17 gm PO DAILY [facility] Last Admin: 08/25/21 09:49 Dose: 17 gm Documented by: Sodium Chloride (Sodium Chloride Flush 0.9% 10 Ml Syringe) 10 ml IVP 0100,0900,1700 [facility] Last Admin: 08/25/21 09:50 Dose: 10 ml Documented by: Sodium Chloride (Sodium Chloride Flush 0.9% 10 Ml Syringe) 10 ml IVP PRN PRN PRN Reason: NEEDED PER PROVIDER ORDERS Last Admin: 08/22/21 04:42 Dose: 30 ml Documented by: Sodium Chloride (Sodium Chloride Flush 0.9% 10 Ml Syringe) 20 ml IVP PRN PRN PRN Reason: After Blood Draw Omeprazole 40 mg PO DAILY 03/06/13 Aspirin [Aspir-Shannen] 325 mg PO DAILY 01/17/14 Atorvastatin Calcium 40 mg PO QPM 04/22/19 Diltiazem HCl [Diltiazem ER] 180 mg PO DAILY 04/22/19 Gabapentin [Neurontin] 100 mg PO QPM 04/22/19 Ipratropium/Albuterol [Duoneb] 3 ml INH Q6H 04/22/19 Furosemide 80 mg PO BID 04/24/19 Fluticasone/Salmeterol [Advair 500-50 Diskus] 1 each INH BID 05/31/19 Insulin Glargine [Lantus Solostar] 0 - 58 unit IM DAILY 10/09/20 Ferrous Gluconate 324 mg PO .[id number] 08/19/21 Losartan [Cozaar] 50 mg PO DAILY 08/19/21 Potassium Chloride [K-Dur] 20 meq PO BID 08/19/21 metFORMIN [Glucophage] 1,000 mg PO DAILY 08/19/21 Objective - Vital Signs/Intake & Output Reviewed Vital Signs: Yes Vital Signs: Vital Signs Pulse Pulse Resp BP Pulse Ox 08/25/21 07:00 62 22 94/60 97 08/25/21 06:00 63 22 86/60 L 95 08/25/21 05:19 54 L 08/25/21 05:00 95 22 131/52 H 95 08/25/21 04:00 97 20 116/61 94 Intake & Output: Intake & Output 08/22/21 08/23/21 08/24/21 08/25/21 23:59 23:59 23:59 23:59 Intake Total 2748.269 5601.506 6365.000 1030.334 Output Total 2225 4693 4295 1340 Balance 523.269 229.376 6056.000 -309.666 - Objective General Appearance: positive: Other (Sedated.) ENT: positive: ENT inspection nml, Other (ET tube in place.) Neck: positive: Nml inspection Respiratory: positive: Rhonchi, Other (Diminished.) Cardiovascular: positive: Regular rate & rhythm. negative: Irregularly irregular, Tachycardia Skin: positive: Warm, Dry Extremities: positive: No pedal edema Neurologic/Psychiatric: positive: Other (Sedated.) - Lab Results Fish Bones: 08/25/21 04:50 08/25/21 04:50 Other Labs: Lab Results x24hrs 08/25/21 08/25/21 08/25/21 Range/Units 06:24 04:50 04:50 WBC 15.4 H (4.8-10.8) x10^3/uL RBC 3.81 L (4.70-6.10) 10^6/uL Hgb 10.8 L (14.0-18.0) g/dL Hct 36.0 L (42.0-52.0) % MCV 94.5 H (80.0-94.0) fL MCH 28.3 (27.0-31.0) pg MCHC 30.0 L (32.0-36.0) g/dL RDW 18.7 H (12.0-15.0) % Plt Count 492 H (130-450) 10^3/uL MPV 9.7 (7.4-11.4) fL Neut # (Auto) Not Reportable Lymph # (Auto) Not Reportable [place] # (Auto) Not Reportable Eos # (Auto) Not Reportable Baso # (Auto) Not Reportable Absolute Nucleated RBC Not Reportable Total Counted 100 Band Neuts % (Manual) 0 (0 - 10) % Abnorm Lymph % (Manual) 0 % Metamyelocytes % 1 H ( - 0) % Myelocytes % 3 H ( - 0) % Nucleated RBC % Not Reportable Neutrophils # (Manual) 11.9 H (1.5-6.6) 10^3/uL Lymphocytes # (Manual) 1.7 (1.5-3.5) 10^3/uL Monocytes # (Manual) 1.2 H (0.0-1.0) 10^3/uL Eosinophils # (Manual) 0.0 (0-0.7) 10^3/uL Basophils # (Manual) 0.0 (0-0.1) 10^3/uL Differential Comment MANUAL DIFFERENTIAL WBC Morphology NORMAL APPEARANCE (NORMAL) Platelet Estimate INCREASED (>450,000) (NORMAL) Platelet Morphology NORMAL APPEARANCE (NORMAL) RBC Morph Micro Appear 1+ POLYCHROMASIA (NORMAL) VBG pH (7.31-7.41) Ionized Calcium (1.15-1.33) mmol/L Sodium 144 (135-145) mmol/L Potassium 5.3 H (3.5-5.0) mmol/L Chloride 105 (101-111) mmol/L Carbon Dioxide 32 (21-32) mmol/L Anion Gap 7.0 (6-13) BUN 45 H (6-20) mg/dL Creatinine 1.3 H (0.6-1.2) mg/dL Estimated GFR (MDRD) 54 L (>89) Glucose 231 H (70-100) mg/dL POC Whole Bld Glucose 206 H (70 - 100) mg/dL Calcium 8.2 L (8.5-10.3) mg/dL Magnesium 2.5 (1.7-2.8) mg/dL Total Bilirubin (0.2-1.0) mg/dL AST (10-42) IU/L ALT (10-60) IU/L Alkaline Phosphatase (42-121) IU/L Total Protein (6.7-8.2) g/dL Albumin (3.2-5.5) g/dL Globulin (2.1-4.2) g/dL Albumin/Globulin Ratio (1.0-2.2) Prealbumin (18-45) mg/dL 08/25/21 08/25/21 08/25/21 Range/Units 04:50 03:03 00:52 WBC (4.8-10.8) x10^3/uL RBC (4.70-6.10) 10^6/uL Hgb (14.0-18.0) g/dL Hct (42.0-52.0) % MCV (80.0-94.0) fL MCH (27.0-31.0) pg MCHC (32.0-36.0) g/dL RDW (12.0-15.0) % Plt Count (130-450) 10^3/uL MPV (7.4-11.4) fL Neut # (Auto) Lymph # (Auto) [place] # (Auto) Eos # (Auto) Baso # (Auto) Absolute Nucleated RBC Total Counted Band Neuts % (Manual) (0 - 10) % Abnorm Lymph % (Manual) % Metamyelocytes % ( - 0) % Myelocytes % ( - 0) % Nucleated RBC % Neutrophils # (Manual) (1.5-6.6) 10^3/uL Lymphocytes # (Manual) (1.5-3.5) 10^3/uL Monocytes # (Manual) (0.0-1.0) 10^3/uL Eosinophils # (Manual) (0-0.7) 10^3/uL Basophils # (Manual) (0-0.1) 10^3/uL Differential Comment WBC Morphology (NORMAL) Platelet Estimate (NORMAL) Platelet Morphology (NORMAL) RBC Morph Micro Appear (NORMAL) VBG pH 7.329 (7.31-7.41) Ionized Calcium 1.15 (1.15-1.33) mmol/L Sodium (135-145) mmol/L Potassium (3.5-5.0) mmol/L Chloride (101-111) mmol/L Carbon Dioxide (21-32) mmol/L Anion Gap (6-13) BUN (6-20) mg/dL Creatinine (0.6-1.2) mg/dL Estimated GFR (MDRD) (>89) Glucose (70-100) mg/dL POC Whole Bld Glucose 242 H 246 H (70 - 100) mg/dL Calcium (8.5-10.3) mg/dL Magnesium (1.7-2.8) mg/dL Total Bilirubin (0.2-1.0) mg/dL AST (10-42) IU/L ALT (10-60) IU/L Alkaline Phosphatase (42-121) IU/L Total Protein (6.7-8.2) g/dL Albumin (3.2-5.5) g/dL Globulin (2.1-4.2) g/dL Albumin/Globulin Ratio (1.0-2.2) Prealbumin (18-45) mg/dL 08/24/21 08/24/21 08/24/21 Range/Units 23:15 20:56 18:30 WBC (4.8-10.8) x10^3/uL RBC (4.70-6.10) 10^6/uL Hgb (14.0-18.0) g/dL Hct (42.0-52.0) % MCV (80.0-94.0) fL MCH (27.0-31.0) pg MCHC (32.0-36.0) g/dL RDW (12.0-15.0) % Plt Count (130-450) 10^3/uL MPV (7.4-11.4) fL Neut # (Auto) Lymph # (Auto) [place] # (Auto) Eos # (Auto) Baso # (Auto) Absolute Nucleated RBC Total Counted Band Neuts % (Manual) (0 - 10) % Abnorm Lymph % (Manual) % Metamyelocytes % ( - 0) % Myelocytes % ( - 0) % Nucleated RBC % Neutrophils # (Manual) (1.5-6.6) 10^3/uL Lymphocytes # (Manual) (1.5-3.5) 10^3/uL Monocytes # (Manual) (0.0-1.0) 10^3/uL Eosinophils # (Manual) (0-0.7) 10^3/uL Basophils # (Manual) (0-0.1) 10^3/uL Differential Comment WBC Morphology (NORMAL) Platelet Estimate (NORMAL) Platelet Morphology (NORMAL) RBC Morph Micro Appear (NORMAL) VBG pH (7.31-7.41) Ionized Calcium (1.15-1.33) mmol/L Sodium 138 (135-145) mmol/L Potassium 5.6 H (3.5-5.0) mmol/L Chloride 102 (101-111) mmol/L Carbon Dioxide 31 (21-32) mmol/L Anion Gap 5.0 L (6-13) BUN 49 H (6-20) mg/dL Creatinine 1.5 H (0.6-1.2) mg/dL Estimated GFR (MDRD) 46 L (>89) Glucose 308 H (70-100) mg/dL POC Whole Bld Glucose 229 H 284 H (70 - 100) mg/dL Calcium 8.0 L (8.5-10.3) mg/dL Magnesium (1.7-2.8) mg/dL Total Bilirubin (0.2-1.0) mg/dL AST (10-42) IU/L ALT (10-60) IU/L Alkaline Phosphatase (42-121) IU/L Total Protein (6.7-8.2) g/dL Albumin (3.2-5.5) g/dL Globulin (2.1-4.2) g/dL Albumin/Globulin Ratio (1.0-2.2) Prealbumin (18-45) mg/dL 08/24/21 08/24/21 08/24/21 Range/Units 18:04 16:09 15:12 WBC (4.8-10.8) x10^3/uL RBC (4.70-6.10) 10^6/uL Hgb (14.0-18.0) g/dL Hct (42.0-52.0) % MCV (80.0-94.0) fL MCH (27.0-31.0) pg MCHC (32.0-36.0) g/dL RDW (12.0-15.0) % Plt Count (130-450) 10^3/uL MPV (7.4-11.4) fL Neut # (Auto) Lymph # (Auto) [place] # (Auto) Eos # (Auto) Baso # (Auto) Absolute Nucleated RBC Total Counted Band Neuts % (Manual) (0 - 10) % Abnorm Lymph % (Manual) % Metamyelocytes % ( - 0) % Myelocytes % ( - 0) % Nucleated RBC % Neutrophils # (Manual) (1.5-6.6) 10^3/uL Lymphocytes # (Manual) (1.5-3.5) 10^3/uL Monocytes # (Manual) (0.0-1.0) 10^3/uL Eosinophils # (Manual) (0-0.7) 10^3/uL Basophils # (Manual) (0-0.1) 10^3/uL Differential Comment WBC Morphology (NORMAL) Platelet Estimate (NORMAL) Platelet Morphology (NORMAL) RBC Morph Micro Appear (NORMAL) VBG pH (7.31-7.41) Ionized Calcium (1.15-1.33) mmol/L Sodium (135-145) mmol/L Potassium (3.5-5.0) mmol/L Chloride (101-111) mmol/L Carbon Dioxide (21-32) mmol/L Anion Gap (6-13) BUN (6-20) mg/dL Creatinine (0.6-1.2) mg/dL Estimated GFR (MDRD) (>89) Glucose (70-100) mg/dL POC Whole Bld Glucose 324 H 330 H 317 H (70 - 100) mg/dL Calcium (8.5-10.3) mg/dL Magnesium (1.7-2.8) mg/dL Total Bilirubin (0.2-1.0) mg/dL AST (10-42) IU/L ALT (10-60) IU/L Alkaline Phosphatase (42-121) IU/L Total Protein (6.7-8.2) g/dL Albumin (3.2-5.5) g/dL Globulin (2.1-4.2) g/dL Albumin/Globulin Ratio (1.0-2.2) Prealbumin (18-45) mg/dL 08/24/21 08/24/21 08/24/21 Range/Units 13:59 13:02 12:09 WBC (4.8-10.8) x10^3/uL RBC (4.70-6.10) 10^6/uL Hgb (14.0-18.0) g/dL Hct (42.0-52.0) % MCV (80.0-94.0) fL MCH (27.0-31.0) pg MCHC (32.0-36.0) g/dL RDW (12.0-15.0) % Plt Count (130-450) 10^3/uL MPV (7.4-11.4) fL Neut # (Auto) Lymph # (Auto) [place] # (Auto) Eos # (Auto) Baso # (Auto) Absolute Nucleated RBC Total Counted Band Neuts % (Manual) (0 - 10) % Abnorm Lymph % (Manual) % Metamyelocytes % ( - 0) % Myelocytes % ( - 0) % Nucleated RBC % Neutrophils # (Manual) (1.5-6.6) 10^3/uL Lymphocytes # (Manual) (1.5-3.5) 10^3/uL Monocytes # (Manual) (0.0-1.0) 10^3/uL Eosinophils # (Manual) (0-0.7) 10^3/uL Basophils # (Manual) (0-0.1) 10^3/uL Differential Comment WBC Morphology (NORMAL) Platelet Estimate (NORMAL) Platelet Morphology (NORMAL) RBC Morph Micro Appear (NORMAL) VBG pH (7.31-7.41) Ionized Calcium (1.15-1.33) mmol/L Sodium (135-145) mmol/L Potassium (3.5-5.0) mmol/L Chloride (101-111) mmol/L Carbon Dioxide (21-32) mmol/L Anion Gap (6-13) BUN (6-20) mg/dL Creatinine (0.6-1.2) mg/dL Estimated GFR (MDRD) (>89) Glucose (70-100) mg/dL POC Whole Bld Glucose 398 H 321 H 307 H (70 - 100) mg/dL Calcium (8.5-10.3) mg/dL Magnesium (1.7-2.8) mg/dL Total Bilirubin (0.2-1.0) mg/dL AST (10-42) IU/L ALT (10-60) IU/L Alkaline Phosphatase (42-121) IU/L Total Protein (6.7-8.2) g/dL Albumin (3.2-5.5) g/dL Globulin (2.1-4.2) g/dL Albumin/Globulin Ratio (1.0-2.2) Prealbumin (18-45) mg/dL 08/24/21 08/24/21 Range/Units 09:30 04:00 WBC (4.8-10.8) x10^3/uL RBC (4.70-6.10) 10^6/uL Hgb (14.0-18.0) g/dL Hct (42.0-52.0) % MCV (80.0-94.0) fL MCH (27.0-31.0) pg MCHC (32.0-36.0) g/dL RDW (12.0-15.0) % Plt Count (130-450) 10^3/uL MPV (7.4-11.4) fL Neut # (Auto) Lymph # (Auto) [place] # (Auto) Eos # (Auto) Baso # (Auto) Absolute Nucleated RBC Total Counted Band Neuts % (Manual) (0 - 10) % Abnorm Lymph % (Manual) % Metamyelocytes % ( - 0) % Myelocytes % ( - 0) % Nucleated RBC % Neutrophils # (Manual) (1.5-6.6) 10^3/uL Lymphocytes # (Manual) (1.5-3.5) 10^3/uL Monocytes # (Manual) (0.0-1.0) 10^3/uL Eosinophils # (Manual) (0-0.7) 10^3/uL Basophils # (Manual) (0-0.1) 10^3/uL Differential Comment WBC Morphology (NORMAL) Platelet Estimate (NORMAL) Platelet Morphology (NORMAL) RBC Morph Micro Appear (NORMAL) VBG pH (7.31-7.41) Ionized Calcium (1.15-1.33) mmol/L Sodium 143 143 (135-145) mmol/L Potassium 5.4 H 6.1 H* (3.5-5.0) mmol/L Chloride 106 105 (101-111) mmol/L Carbon Dioxide 29 28 (21-32) mmol/L Anion Gap 8.0 10.0 (6-13) BUN 49 H 51 H (6-20) mg/dL Creatinine 1.7 H 1.6 H (0.6-1.2) mg/dL Estimated GFR (MDRD) 39 L 42 L (>89) Glucose 335 H 350 H (70-100) mg/dL POC Whole Bld Glucose (70 - 100) mg/dL Calcium 8.1 L 8.1 L (8.5-10.3) mg/dL Magnesium (1.7-2.8) mg/dL Total Bilirubin 0.7 (0.2-1.0) mg/dL AST 12 (10-42) IU/L ALT 13 (10-60) IU/L Alkaline Phosphatase 48 (42-121) IU/L Total Protein 5.9 L (6.7-8.2) g/dL Albumin 2.4 L (3.2-5.5) g/dL Globulin 3.5 (2.1-4.2) g/dL Albumin/Globulin Ratio 0.7 L (1.0-2.2) Prealbumin 20 (18-45) mg/dL Assessment/Plan - Problem List (1) Acute and chronic respiratory failure with hypoxia Impression: He continues to improve. He is now down to an FiO2 of 45% and a PEEP of 7. His sats are maintaining in the mid 90s. This secondary to COVID-19 pneumonia. We will keep him on Decadron and he has now completed IV antibiotics today. We will switch his sedation to propofol in preparation for potential extubation over the next 1 to 2 days. We will continue to wean his vent settings as tolerated. We may need to extubate him to CPAP or BiPAP given his body habitus. I did speak with his and updated her on his clinical condition. (2) Pneumonia due to COVID-19 virus Impression: This is the cause of his respiratory failure. He remains on Decadron. He has now completed IV antibiotics. His white count is increased today but I think this is likely due to hemoconcentration rather than worsening infection given his clinical improvement. (3) On mechanically assisted ventilation Impression: He is doing much better from a ventilator standpoint as mentioned above. We will switch his sedation to propofol in preparation for potential extubation over the next 1 to 2 days. We will continue to wean the vent as tolerated. (4) Gram-positive bacteremia Impression: This is felt to be contaminant. Repeat cultures have been negative to date and the other set was negative. Antibiotics have been discontinued. (5) Acute kidney injury superimposed on CKD Impression: His renal function continues to improve and his creatinine is actually low as it has been in quite some time with a creatinine of 1.3. We will give another liter of lactated Ringer's given I believe he is hemoconcentrated. We will continue to monitor his renal function and urine output. (6) Insulin dependent diabetes mellitus Impression: His blood glucose is better controlled after starting him on insulin drip. This has been exacerbated by the steroids. Once we can wean him off of the ventilator we can consider discontinuing the steroids and putting him back on his home insulin regimen. (7) Hyperkalemia Impression: Was likely secondary to the hyperglycemia and has improved. His potassium is down to 5.3. We will recheck this again this evening. (8) Iron deficiency anemia Impression: Hemoglobin is stable. We will resume home oral iron when appropriate. (9) Hypotension Impression: This was related to sedation and has resolved.
[2021-08-25] MEDS: cefTRIAXone 2 GM in SODIUM CHLORIDE 0.9% MINIBAG 100 ML IV SCH (09:10)
[2021-08-25] MEDS: DEXAMETHASONE 10 MG/ML VIAL IVP SCH (09:48)
[2021-08-25] MEDS: CHLORHEXIDINE GLUCONATE 15 ML UDC PO SCH ×2 (09:48→21:59)
[2021-08-25] MEDS: DOXYCYCLINE INJ 100 MG in SODIUM CHLORIDE 0.9% MINIBAG 100 ML IV SCH ×2 (09:48→21:31)
[2021-08-25] MEDS: CHOLECALCIFEROL 25 MCG TABLET PO SCH (09:48)
[2021-08-25] MEDS: ENOXAPARIN 150 MG/ML SYRINGE SUBQ SCH ×2 (09:49→22:07)
[2021-08-25] MEDS: polyethylene glycoL 3350 17 GM PACKET PO SCH (09:49)
[2021-08-25] MEDS: PROPOFOL 1000 MG/100 ML 1,000 MG/100 ML BOTTLE IV SCH ×2 (13:12→21:58)
[2021-08-25 13:29] LABS: ABG PCO2 48 mmHg (34-45); ABG PH 7.42 (7.35-7.45)
[2021-08-25 13:30] LABS: ABG BASE EXCESS 5.2 mmol/L (-2.0-3.0); ABG HCO3 30.5 mmol/L (22.0-26.0); ABG MODE OF VENTILATION ASSIST/CONTROL; ABG OXYGEN SATURATION 88 % (94-98); ABG PO2 57 mmHg (80-100); ABG RESPIRATORY RATE 22 b/min; ALLEN TEST POSITIVE
--- NOTE | 2021-08-25 15:02 | XRAY Report ---
PROCEDURE: Abdomen 1 View X-Ray INDICATIONS: Constipation. TECHNIQUE: 1 view of the abdomen were acquired. COMPARISON: 08/19/2021 FINDINGS: Surgical changes and devices: Nasogastric tube in the stomach. Bowel: No pneumoperitoneum. The bowel gas pattern is normal. Soft tissues: No masses; visualized solid organ contours appear normal in size. No suspicious abdom inal calcifications. Bones: No suspicious bony abnormalities. Study is limited by patient body habitus IMPRESSION: Limited but unremarkable abdominal radiograph without evidence of obstruction Reviewed by: José Miguel Solano MD on 08/25/2021 2:00 PM [place] Approved by: José Miguel Solano MD on 08/25/2021 2:00 PM [place] Station ID: [id number]
[2021-08-25] MEDS ORDERED: DEXMEDETOMIDINE 400 MCG/100 ML 100 ML IV SCH (16:00)
[2021-08-25] MEDS: SODIUM CHLORIDE 0.9% 500 ML IV PRN (16:48)
[2021-08-25] MEDS: DEXMEDETOMIDINE 400 MCG in SODIUM CHLORIDE 0.9% 100ML 96 ML IV SCH (16:52)
[2021-08-25 20:21] LABS: CALCIUM 7.8 mg/dL (8.5-10.3); CREATININE 1.4 mg/dL (0.6-1.2); POTASSIUM 5.6 mmol/L (3.5-5.0)
[2021-08-25] MEDS: LACTATED RINGERS 1,000 ML IV ONE (20:30)
[2021-08-25] MEDS: ATORVASTATIN 40 MG TABLET PO SCH (22:04)
[2021-08-26] MEDS: INSULIN REGULAR HUMAN 100 UNIT in SODIUM CHLORIDE 0.9% 100ML 99 ML IV SCH (03:24)
[2021-08-26] MEDS: SODIUM CHLORIDE FLUSH 0.9% 10 ML SYRINGE IVP SCH ×3 (05:05→19:25)
[2021-08-26] MEDS: PROPOFOL 1000 MG/100 ML 1,000 MG/100 ML BOTTLE IV SCH ×4 (05:08→19:26)
[2021-08-26 05:22] LABS: BASOPHILS % (AUTO) 0.1 %; HCT - HEMATOCRIT 35.4 % (42.0-52.0); HGB - HEMOGLOBIN 10.6 g/dL (14.0-18.0); LYMPHOCYTES % (AUTO) 7.7 %; MEAN CORPUSCULAR HEMOGLOBIN 28.1 pg (27.0-31.0); MEAN CORPUSCULAR HGB CONC 29.9 g/dL (32.0-36.0); MEAN CORPUSCULAR VOLUME 93.9 fL (80.0-94.0); MEAN PLATELET VOLUME 9.6 fL (7.4-11.4); MONOCYTES % (AUTO) 11.5 %; PLT - PLATELET COUNT 425 10^3/uL (130-450); RED BLOOD COUNT 3.77 10^6/uL (4.70-6.10); RED CELL DISTRIBUTION WIDTH 18.4 % (12.0-15.0); WHITE BLOOD COUNT 13.4 x10^3/uL (4.8-10.8)
[2021-08-26 05:27] LABS: ABNORMAL LYMPHS % (MANUAL) 0 %; BAND NEUTROPHILS % (MANUAL) 0 %
[2021-08-26 05:41] LABS: CALCIUM 7.7 mg/dL (8.5-10.3); IONIZED CALCIUM IF INDICATED YES
[2021-08-26 05:48] LABS: CALCIUM 7.8 mg/dL (8.5-10.3); CREATININE 1.3 mg/dL (0.6-1.2); MAGNESIUM 2.4 mg/dL (1.7-2.8); POTASSIUM 5.3 mmol/L (3.5-5.0)
[2021-08-26 05:52] LABS: CALCIUM, IONIZED 1.07 mmol/L (1.15-1.33); VBG PH 7.378 (7.31-7.41)
[2021-08-26 06:00] LABS: LYMPHOCYTES # (MANUAL) 1.9 10^3/uL (1.5-3.5); LYMPHOCYTES % (MANUAL) 14 %; MONOCYTES # (MANUAL) 1.9 10^3/uL (0.0-1.0); MYELOCYTES % (MANUAL) 2 %; NEUTROPHILS # (MANUAL) 9.4 10^3/uL (1.5-6.6)
[2021-08-26 06:01] LABS: DIFFERENTIAL COMMENT MANUAL DIFFERENTIAL; PLATELET ESTIMATE, MANUAL NORMAL (130-450,000) (NORMAL); PLATELET MORPHOLOGY NORMAL APPEARANCE (NORMAL)
[2021-08-26] MEDS: LACTATED RINGERS 1,000 ML IV ONE (07:24)
[2021-08-26] MEDS: CHLORHEXIDINE GLUCONATE 15 ML UDC PO SCH ×2 (09:43→21:32)
[2021-08-26] MEDS: polyethylene glycoL 3350 17 GM PACKET PO SCH (09:43)
[2021-08-26] MEDS: CHOLECALCIFEROL 25 MCG TABLET PO SCH (09:47)
[2021-08-26] MEDS: SENNA 8.6 MG TABLET PO SCH (09:49)
[2021-08-26] MEDS: DOCUSATE SODIUM 250 MG CAPSULE PO SCH (09:49)
[2021-08-26] MEDS: CALCIUM CARBONATE CHEW 500 MG TABLET PO SCH ×2 (09:51→14:39)
[2021-08-26] MEDS: DEXAMETHASONE 10 MG/ML VIAL IVP SCH (10:01)
[2021-08-26] MEDS: PANTOPRAZOLE 40 MG VIAL IVP SCH (10:03)
[2021-08-26] MEDS: ENOXAPARIN 150 MG/ML SYRINGE SUBQ SCH (10:11)
[2021-08-26] MEDS: fentaNYL 100 MCG/2 ML VIAL IVP PRN (11:16)
[2021-08-26] MEDS: DEXMEDETOMIDINE 400 MCG in SODIUM CHLORIDE 0.9% 100ML 96 ML IV SCH ×2 (13:52→19:31)
[2021-08-26] MEDS ORDERED: DEXMEDETOMIDINE 400 MCG/100 ML 100 ML IV SCH (14:00)
--- NOTE | 2021-08-26 16:06 | PROVIDER PROGRESS NOTE ---
Assessment/Plan - Problem List (1) Acute and chronic respiratory failure with hypoxia Assessment/Plan: He continues to improve slowly. He is now down to an FiO2 of 40% and a PEEP of 6. He was tried on CPAP for 30 min today. His sats are maintaining in the mid 90s. This secondary to COVID-19 pneumonia. We will keep him on Decadron and he has now completed IV antibiotics. They switched his sedation to Propofol yesterday (in preparation for potential extubation over the next 1 to 2 days), but he was agitated and Precedex was resumed today. We will continue to wean his vent settings as tolerated. We may need to extubate him to CPAP or BiPAP given his body habitus. I spoke with his Mikala today and updated her on his clinical condition. (2) Pneumonia due to COVID-19 virus Impression: This is the cause of his respiratory failure. He remains on Decadron. He has now completed IV antibiotics. Will try proning him as we progress. (3) On mechanically assisted ventilation Impression: He is improving slightly from a ventilator standpoint as mentioned above. We was switched his sedation to propofol in preparation for potential extubation over the next 1 to 2 days. We will continue to wean the vent as tolerated. (4) Hypotension Impression: This was and again is related to sedation (today on Propofol and Precedex) and Levophed was resumed today to keep MAP 60. (5) Acute kidney injury superimposed on CKD Impression: His renal function continues to improve daily. He gets some iv fluids plus ng liquid feeds. We will continue to monitor his renal function and urine output. (6) Insulin dependent diabetes mellitus Impression: His blood glucose is better controlled after starting him on insulin drip. This has been exacerbated by the steroids. Once we can wean him off of the ventilator we can consider discontinuing the steroids and putting him back on his home insulin regimen. (7) Hyperkalemia Impression: Was likely secondary to the hyperglycemia and has improved. Follow BMP daily. (8) Iron deficiency anemia Impression: Hemoglobin is stable. We will resume home oral iron when appropriate. (9) Gram-positive bacteremia Impression: This is felt to be contaminant. Repeat cultures have been negative to date and the other set was negative. Antibiotics have been discontinued. - Current Meds Current Meds: Current Medications Generic Name Dose Route Start Last Admin Trade Name Freq PRN Reason Stop Dose Admin Albuterol 2.5 mg 08/19/21 11:45 08/22/21 21:41 Albuterol Neb 2.5 Mg/3 Ml INH 2.5 mg Q4HR PRN Administration Wheezing Atorvastatin Calcium 40 mg 08/19/21 21:00 08/25/21 22:04 Atorvastatin 40 Mg Tablet PO 40 mg QPM DINESH Administration Chlorhexidine Gluconate 15 ml 08/19/21 23:00 08/26/21 09:43 Chlorhexidine Gluconate 15 Ml Udc PO 15 ml BID DINESH Administration Cholecalciferol 50 mcg 08/21/21 09:00 08/26/21 09:47 Cholecalciferol 25 Mcg Tablet PO 50 mcg DAILY DINESH Administration Dexamethasone 6 mg 08/20/21 09:00 08/26/21 10:01 Dexamethasone 10 Mg/Ml Vial IVP 08/28/21 09:01 6 mg DAILY DINESH Administration Docusate Sodium 250 - 500 mg 08/26/21 09:00 08/26/21 09:49 Docusate Sodium 250 Mg Capsule PO 250 mg DAILY DINESH Administration Fentanyl 75 mcg 08/25/21 15:42 08/26/21 11:16 Fentanyl 100 Mcg/2 Ml Vial IVP 75 mcg Q2HR PRN Administration PAIN Fentanyl 2,500 mcg in 250 mls @ 15 mls/hr 08/19/21 18:30 08/25/21 15:40 Fentanyl IV 0 mcg/kg/hr .[id number] DINESH 0 mls/hr Titration Protocol 1 MCG/KG/HR Sodium Chloride 500 mls @ 20 mls/hr 08/20/21 05:55 08/26/21 14:25 Normal Saline 0.9% IV 10 mls/hr Q24H PRN Infusion TKO RATE Insulin Human Regular 100 unit 100 mls @ 5 mls/hr 08/24/21 10:31 08/26/21 12:00 / Sodium Chloride IV 5 unit/hr .Q20H DINESH 5 mls/hr Titration Protocol 5 UNIT/HR Propofol 1,000 mg in 100 mls @ 9.6 mls/hr 08/25/21 13:00 08/26/21 15:49 Diprivan IV 25 mcg/kg/min .[id number] DINESH 24 mls/hr Administration Protocol 10 MCG/KG/MIN Dexmedetomidine HCl 400 mcg/ 100 mls @ 8 mls/hr 08/25/21 16:00 08/26/21 14:47 Sodium Chloride IV 0.6 mcg/kg/hr .[id number] DINESH 24 mls/hr Titration Protocol 0.2 MCG/KG/HR Pantoprazole Sodium 40 mg 08/20/21 07:00 08/26/21 10:03 Pantoprazole 40 Mg Vial IVP 40 mg QDAC DINESH Administration Polyethylene Glycol 17 gm 08/22/21 09:00 08/26/21 09:43 Polyethylene Glycol 3350 17 Gm Packet PO 17 gm DAILY DINESH Administration Senna 8.6 - 17.2 mg 08/26/21 09:00 08/26/21 09:49 Senna 8.6 Mg Tablet PO 8.6 mg DAILY DINESH Administration Sodium Chloride 10 ml 08/19/21 17:00 08/26/21 10:06 Sodium Chloride Flush 0.9% 10 Ml Syringe IVP 30 ml 0100,0900,1700 DINESH Administration Sodium Chloride 10 ml 08/19/21 11:45 08/22/21 04:42 Sodium Chloride Flush 0.9% 10 Ml Syringe IVP 30 ml PRN PRN Administration NEEDED PER PROVIDER ORDERS - Lab Result Fish Bone Diagrams: 08/26/21 04:40 08/26/21 04:40 - Additional Planning My Orders: My Active Orders 08/26/21 17:00 NORepinephrine/D5W 8 mg/250 mL @ Titrate Dextrose 5% [D5w] 242 ml NORepinephrine [Levophed] 8 mg IV 8 mcg/min 08/27/21 09:00 Enoxaparin [Lovenox] 40 mg SUBQ DAILY Subjective - Subjective Nursing Reports: Sedated Objective Vital Signs: Vital Signs - 24 hr 08/25/21 08/25/21 08/25/21 17:00 18:00 18:53 Temperature Heart Rate 58 L Heart Rate [ 64 56 L Monitoring electrodes] Respiratory 18 22 Rate Blood Pressure 96/65 119/40 L [Right Brachial artery] O2 Saturation 96 97 08/25/21 08/25/21 08/25/21 19:00 20:00 20:46 Temperature Heart Rate 95 Heart Rate [ 68 116 H Monitoring electrodes] Respiratory 22 22 Rate Blood Pressure 128/73 133/68 H [Right Brachial artery] O2 Saturation 96 95 08/25/21 08/25/21 08/25/21 21:00 22:00 23:00 Temperature Heart Rate Heart Rate [ 92 51 L 50 L Monitoring electrodes] Respiratory 22 22 22 Rate Blood Pressure 131/63 H 124/42 L 127/47 L [Right Brachial artery] O2 Saturation 93 91 L 92 08/25/21 08/26/21 08/26/21 23:53 00:00 01:00 Temperature 36.7 C Heart Rate 95 Heart Rate [ 84 66 Monitoring electrodes] Respiratory 94 H 23 Rate Blood Pressure 131/72 H 142/65 H [Right Brachial artery] O2 Saturation 17 L 91 L 08/26/21 08/26/21 08/26/21 01:49 02:00 03:00 Temperature Heart Rate 77 77 Heart Rate [ 97 95 Monitoring electrodes] Respiratory 24 34 H Rate Blood Pressure 140/75 H 138/71 H [Right Brachial artery] O2 Saturation 94 95 08/26/21 08/26/21 08/26/21 04:00 04:12 05:00 Temperature 36.8 C Heart Rate 64 64 Heart Rate [ 73 98 Monitoring electrodes] Respiratory 24 27 H Rate Blood Pressure 125/51 L 144/77 H [Right Brachial artery] O2 Saturation 94 95 08/26/21 08/26/21 08/26/21 05:49 06:00 07:00 Temperature Heart Rate 72 72 Heart Rate [ 98 122 H Monitoring electrodes] Respiratory 28 H 39 H Rate Blood Pressure 111/64 135/68 H [Right Brachial artery] O2 Saturation 98 97 08/26/21 08/26/21 08/26/21 07:23 07:56 09:00 Temperature 37.3 C Heart Rate 120 H Heart Rate [ 120 H 122 H Monitoring electrodes] Respiratory 28 H 26 H Rate Blood Pressure 127/67 [Right Brachial artery] O2 Saturation 93 95 08/26/21 08/26/21 08/26/21 09:54 10:00 10:37 Temperature Heart Rate 123 H 130 H Heart Rate [ 127 H Monitoring electrodes] Respiratory 27 H Rate Blood Pressure 131/63 H [Right Brachial artery] O2 Saturation 95 08/26/21 08/26/21 08/26/21 11:00 12:00 13:00 Temperature 37.2 C Heart Rate Heart Rate [ 133 H 123 H 120 H Monitoring electrodes] Respiratory 27 H 28 H 30 H Rate Blood Pressure 145/80 H 105/60 99/55 L [Right Brachial artery] O2 Saturation 93 92 87 L 08/26/21 08/26/21 08/26/21 13:07 14:05 14:12 Temperature Heart Rate 122 H Heart Rate [ 111 H 111 H Monitoring electrodes] Respiratory 22 Rate Blood Pressure 75/46 L 96/55 L [Right Brachial artery] O2 Saturation 100 08/26/21 08/26/21 08/26/21 14:21 14:30 14:46 Temperature Heart Rate Heart Rate [ 111 H 120 H 115 H Monitoring electrodes] Respiratory 26 H 32 H Rate Blood Pressure 109/61 111/55 L 110/49 L [Right Brachial artery] O2 Saturation 97 91 L 08/26/21 15:55 Temperature Heart Rate Heart Rate [ 75 Monitoring electrodes] Respiratory Rate Blood Pressure 68/42 L [Right Brachial artery] O2 Saturation Oxygen O2 Source Mechanical ventilator I&O (Last 24 Hrs): Intake and Output Totals x24h 08/24/21 08/25/21 08/26/21 23:59 23:59 23:59 Intake Total 6365.000 4730.147 2095.813 Output Total 4295 2875 2295 Balance 2070.000 1855.147 -199.187 General: Other ((Visit done remotely). Sedated, on the vent.) HEENT: Mucous membr. moist/pink Neuro: Other (Sedated) Cardiovascular: Regular rate Respiratory: Other (Tachypneic) Abdomen: Soft Extremities: Other (Trace edema) - Results Results: Laboratory Results WBC 13.4 x10^3/uL (4.8-10.8) H 08/26/21 04:40 RBC 3.77 10^6/uL (4.70-6.10) L 08/26/21 04:40 Hgb 10.6 g/dL (14.0-18.0) L 08/26/21 04:40 Hct 35.4 % (42.0-52.0) L 08/26/21 04:40 MCV 93.9 fL (80.0-94.0) 08/26/21 04:40 MCH 28.1 pg (27.0-31.0) 08/26/21 04:40 MCHC 29.9 g/dL (32.0-36.0) L 08/26/21 04:40 RDW 18.4 % (12.0-15.0) H 08/26/21 04:40 Plt Count 425 10^3/uL (130-450) 08/26/21 04:40 MPV 9.6 fL (7.4-11.4) 08/26/21 04:40 Neut # (Auto) Not Reportable 08/26/21 04:40 Lymph # (Auto) Not Reportable 08/26/21 04:40 Bollinger # (Auto) Not Reportable 08/26/21 04:40 Eos # (Auto) Not Reportable 08/26/21 04:40 Baso # (Auto) Not Reportable 08/26/21 04:40 Absolute Nucleated RBC Not Reportable 08/26/21 04:40 Total Counted 100 08/26/21 04:40 Band Neuts % (Manual) 0 % (0-10) 08/26/21 04:40 Abnorm Lymph % (Manual) 0 % 08/26/21 04:40 Metamyelocytes % 1 % (-0) H 08/25/21 04:50 Myelocytes % 2 % (-0) H 08/26/21 04:40 Nucleated RBC % Not Reportable 08/26/21 04:40 Neutrophils # (Manual) 9.4 10^3/uL (1.5-6.6) H 08/26/21 04:40 Lymphocytes # (Manual) 1.9 10^3/uL (1.5-3.5) 08/26/21 04:40 Monocytes # (Manual) 1.9 10^3/uL (0.0-1.0) H 08/26/21 04:40 Eosinophils # (Manual) 0.0 10^3/uL (0-0.7) 08/26/21 04:40 Basophils # (Manual) 0.0 10^3/uL (0-0.1) 08/26/21 04:40 Nucleated RBCs 1 % 08/23/21 04:30 Differential Comment MANUAL DIFFERENTIAL 08/26/21 04:40 WBC Morphology NORMAL APPEARANCE (NORMAL) 08/25/21 04:50 Platelet Estimate NORMAL (130-450,000) (NORMAL) 08/26/21 04:40 Platelet Morphology NORMAL APPEARANCE (NORMAL) 08/26/21 04:40 RBC Morph Micro Appear 1+ POLYCHROMASIA (NORMAL) 1+ ANISOCYTOSIS (NORMAL) 08/26/21 04:40 RBC Morph Micro Appear 1+ POLYCHROMASIA (NORMAL) 1+ ANISOCYTOSIS (NORMAL) 08/26/21 04:40 PT 15.3 secs (9.9-12.6) H 08/19/21 13:44 INR 1.4 (0.8-1.2) H 08/19/21 13:44 D-Dimer 527.1 ng/mL (200.0-255.0) H 08/22/21 04:45 Bld Gas Analysis Time 1317 08/25/21 13:17 Sample Site RIGHT RADIAL 08/25/21 13:17 ABG pH 7.42 (7.35-7.45) 08/25/21 13:17 ABG pCO2 48 mmHg (34-45) H 08/25/21 13:17 ABG pO2 57 mmHg (80-100) L 08/25/21 13:17 ABG HCO3 30.5 mmol/L (22.0-26.0) H 08/25/21 13:17 ABG Total CO2 32.0 MMOL/L (21.0-29.0) H 08/25/21 13:17 ABG O2 Saturation 88 % (94-98) L 08/25/21 13:17 ABG Base Excess 5.2 mmol/L (-2.0-3.0) H 08/25/21 13:17 Endy Test POSITIVE 08/25/21 13:17 VBG pH 7.378 (7.31-7.41) 08/26/21 04:40 Ionized Calcium 1.07 mmol/L (1.15-1.33) L 08/26/21 04:40 Respiration Rate 22 b/min 08/25/21 13:17 O2 Delivery Device VENTILATOR 08/25/21 13:17 Vent Mode ASSIST/CONTROL 08/25/21 13:17 FiO2 45.00 08/25/21 13:17 Tidal Volume 500 mL 08/25/21 13:17 PEEP 7 cmH2O 08/25/21 13:17 Sodium 141 mmol/L (135-145) 08/26/21 04:40 Potassium 5.3 mmol/L (3.5-5.0) H 08/26/21 04:40 Chloride 102 mmol/L (101-111) 08/26/21 04:40 Carbon Dioxide 32 mmol/L (21-32) 08/26/21 04:40 Anion Gap 7.0 (6-13) 08/26/21 04:40 BUN 43 mg/dL (6-20) H 08/26/21 04:40 Creatinine 1.3 mg/dL (0.6-1.2) H 08/26/21 04:40 Estimated GFR (MDRD) 54 (>89) L 08/26/21 04:40 Glucose 243 mg/dL (70-100) H 08/26/21 04:40 POC Whole Bld Glucose 214 mg/dL (70 - 100) H 08/26/21 14:20 Lactic Acid 1.3 mmol/L (0.5-2.2) 08/19/21 10:05 Calcium 7.7 mg/dL (8.5-10.3) L 08/26/21 04:40 Calcium 7.8 mg/dL (8.5-10.3) L 08/26/21 04:40 Ionized Calcium YES 08/26/21 04:40 Phosphorus 4.6 mg/dL (2.5-4.6) 08/26/21 04:40 Magnesium 2.4 mg/dL (1.7-2.8) 08/26/21 04:40 Total Bilirubin 0.4 mg/dL (0.2-1.0) 08/24/21 04:20 Direct Bilirubin 0.1 mg/dL (0.1-0.5) 08/24/21 04:20 AST 13 IU/L (10-42) 08/24/21 04:20 ALT 13 IU/L (10-60) 08/24/21 04:20 Alkaline Phosphatase 55 IU/L (42-121) 08/24/21 04:20 Troponin I High Sens 11.4 ng/L (2.3-19.7) 08/19/21 10:05 C-Reactive Protein 6.6 mg/dL (0-1.0) H 08/21/21 04:53 B-Natriuretic Peptide 54 pg/mL (5-100) 08/19/21 10:05 Total Protein 6.1 g/dL (6.7-8.2) L 08/24/21 04:20 Albumin 2.3 g/dL (3.2-5.5) L 08/24/21 04:20 Globulin 3.8 g/dL (2.1-4.2) 08/24/21 04:20 Albumin/Globulin Ratio 0.7 (1.0-2.2) L 08/24/21 04:00 Prealbumin 20 mg/dL (18-45) 08/24/21 04:00 25-OH Vitamin D Total 10 ng/mL (30-100) L 08/20/21 13:55 TSH 0.13 uIU/mL (0.34-5.60) L 08/21/21 04:00 Free T4 1.27 ng/dL (0.58-1.64) 08/21/21 04:00 Nasal Adenovirus (PCR) NOT DETECTED 08/19/21 10:15 Nasal B. parapertussis DNA (PCR) NOT DETECTED 08/19/21 10:15 Nasal Coronavir 229E PCR NOT DETECTED 08/19/21 10:15 Nasal Coronavir HKU1 PCR NOT DETECTED 08/19/21 10:15 Nasal Coronavir NL63 PCR NOT DETECTED 08/19/21 10:15 Nasal Coronavir OC43 PCR NOT DETECTED 08/19/21 10:15 Nasal Enterovir/Rhinovir PCR DETECTED A 08/19/21 10:15 Nasal Influenza B PCR NOT DETECTED 08/19/21 10:15 Nasal Influenza A PCR NOT DETECTED 08/19/21 10:15 Nasal Parainfluen 1 PCR NOT DETECTED 08/19/21 10:15 Nasal Parainfluen 2 PCR NOT DETECTED 08/19/21 10:15 Nasal Parainfluen 3 PCR NOT DETECTED 08/19/21 10:15 Nasal Parainfluen 4 PCR NOT DETECTED 08/19/21 10:15 Nasal RSV (PCR) NOT DETECTED 08/19/21 10:15 Nasal Screen MRSA (PCR) NEGATIVE (NEGATIVE) 08/19/21 13:30 Nasal B.pertussis DNA PCR NOT DETECTED 08/19/21 10:15 Nasal C.pneumoniae (PCR) NOT DETECTED 08/19/21 10:15 Richy Human Metapneumo PCR NOT DETECTED 08/19/21 10:15 Nasal M.pneumoniae (PCR) NOT DETECTED 08/19/21 10:15 Nasal SARS-CoV-2 (PCR) DETECTED A 08/19/21 10:15 Ref Lab Test Result Cancelled 08/19/21 10:05 - Procedures Procedures: Procedures ASSISTANCE WITH RESPIRATORY VENTILATION, <24 HRS, CPAP (12/05/15) CATARAC PHACOEMULS/ASPIR (03/29/14) ENDOSC POLYPECTOMY OF LG INTEST (05/12/13) ESOPHAGOGASTRODUODENOSCOPY [EGD] W/CLOSED BIOPSY (05/12/13) INSERT LENS AT CATAR EXT (03/29/14) INSERTION OF INFUSION DEV INTO L FEMOR VEIN, PERC APPROACH (04/22/19) TRANSFUSE NONAUT FROZEN PLASMA IN PERIPH VEIN, PERC (04/22/19) TRANSFUSE NONAUT RED BLOOD CELLS IN CENTRAL VEIN, PERC (04/22/19)
[2021-08-26] MEDS ORDERED: SODIUM CHLORIDE INHALATION 3 ML NEB ONE (18:42)
[2021-08-26] MEDS: SODIUM CHLORIDE FLUSH 0.9% 10 ML SYRINGE IVP PRN (18:51)
[2021-08-26 19:12] LABS: CALCIUM, IONIZED 1.02 mmol/L (1.15-1.33); VBG PH 7.422 (7.31-7.41)
[2021-08-26] MEDS: ATORVASTATIN 40 MG TABLET PO SCH (21:32)
[2021-08-27] MEDS: DEXMEDETOMIDINE 400 MCG in SODIUM CHLORIDE 0.9% 100ML 96 ML IV SCH ×5 (01:04→17:45)
[2021-08-27] MEDS: INSULIN REGULAR HUMAN 100 UNIT in SODIUM CHLORIDE 0.9% 100ML 99 ML IV SCH ×3 (03:50→16:01)
[2021-08-27] MEDS: PROPOFOL 1000 MG/100 ML 1,000 MG/100 ML BOTTLE IV SCH ×4 (04:28→20:21)
[2021-08-27 05:08] LABS: BASOPHILS % (AUTO) 0.2 %; EOSINOPHILS % (AUTO) 0.5 %; HCT - HEMATOCRIT 37.6 % (42.0-52.0); HGB - HEMOGLOBIN 11.4 g/dL (14.0-18.0); LYMPHOCYTES % (AUTO) 10.6 %; MEAN CORPUSCULAR HEMOGLOBIN 27.5 pg (27.0-31.0); MEAN CORPUSCULAR HGB CONC 30.3 g/dL (32.0-36.0); MEAN CORPUSCULAR VOLUME 90.6 fL (80.0-94.0); MEAN PLATELET VOLUME 9.7 fL (7.4-11.4); MONOCYTES % (AUTO) 13.7 %; NEUTROPHILS % (AUTO) 71.6 %; PLT - PLATELET COUNT 551 10^3/uL (130-450); RED BLOOD COUNT 4.15 10^6/uL (4.70-6.10); RED CELL DISTRIBUTION WIDTH 18.4 % (12.0-15.0); WHITE BLOOD COUNT 18.8 x10^3/uL (4.8-10.8)
[2021-08-27] MEDS: SODIUM CHLORIDE FLUSH 0.9% 10 ML SYRINGE IVP SCH ×3 (05:14→18:29)
[2021-08-27] MEDS: SODIUM CHLORIDE FLUSH 0.9% 10 ML SYRINGE IVP PRN ×2 (05:14→14:24)
[2021-08-27 05:23] LABS: ALBUMIN 2.5 g/dL (3.2-5.5); ALBUMIN/GLOBULIN RATIO 0.6 (1.0-2.2); BILIRUBIN,TOTAL 0.6 mg/dL (0.2-1.0); CALCIUM 7.8 mg/dL (8.5-10.3); CREATININE 1.3 mg/dL (0.6-1.2); MAGNESIUM 2.5 mg/dL (1.7-2.8); PHOSPHORUS 4.3 mg/dL (2.5-4.6); POTASSIUM 4.9 mmol/L (3.5-5.0); TOTAL PROTEIN 6.4 g/dL (6.7-8.2)
[2021-08-27 05:26] LABS: ABNORMAL LYMPHS % (MANUAL) 0 %
[2021-08-27 05:40] LABS: CALCIUM, IONIZED 1.03 mmol/L (1.15-1.33); VBG PH 7.422 (7.31-7.41)
[2021-08-27 06:30] LABS: BAND NEUTROPHILS % (MANUAL) 1 %; DIFFERENTIAL COMMENT MANUAL DIFFERENTIAL; LYMPHOCYTES # (MANUAL) 1.1 10^3/uL (1.5-3.5); LYMPHOCYTES % (MANUAL) 6 %; METAMYELOCYTES % (MANUAL) 1 %; MONOCYTES # (MANUAL) 1.7 10^3/uL (0.0-1.0); MYELOCYTES % (MANUAL) 1 %; NEUTROPHILS # (MANUAL) 15.6 10^3/uL (1.5-6.6); NUCLEATED RBC (MANUAL) 1 %; PLATELET ESTIMATE, MANUAL INCREASED (>450,000) (NORMAL); RBC MORPHOLOGY (MULTIPLE) NORMAL APPEARANCE (NORMAL)
[2021-08-27] MEDS: PANTOPRAZOLE 40 MG VIAL IVP SCH (06:52)
[2021-08-27] MEDS ORDERED: CALCIUM CHLORIDE 1,000 MG in SODIUM CHLORIDE 0.9% 50 ML IV ONE ×3 (08:00→22:11)
--- NOTE | 2021-08-27 08:18 | XRAY Report ---
PROCEDURE: Chest 1 View X-Ray INDICATIONS: F/U Covid pneumonia, pt on vent TECHNIQUE: One view of the chest was acquired. COMPARISON: 08/24/2021 FINDINGS: Surgical changes and devices: ETT is present, tip of which is in expected location. Left sided centra l venous catheter is present, tip of which projects over the left brachiocephalic vein, as before. Lungs and pleura: No pleural effusions or pneumothorax. There is moderate diffuse basilar predominan t patchy airspace opacity, as before. Mediastinum: Mediastinal contours appear normal. Heart size is normal. Bones and chest wall: No suspicious bony lesions. Overlying soft tissues appear unremarkable. IMPRESSION: No change in bilateral pneumonia. Reviewed by: Dennis Nayak MD on 08/27/2021 8:17 AM PST Approved by: Dennis Nayak MD on 08/27/2021 8:17 AM PST Station ID: [id number]
[2021-08-27] MEDS: SODIUM CHLORIDE 0.9% 500 ML IV PRN (08:39)
[2021-08-27] MEDS: SENNA 8.6 MG TABLET PO SCH (10:34)
[2021-08-27] MEDS: CHLORHEXIDINE GLUCONATE 15 ML UDC PO SCH ×2 (10:34→20:30)
[2021-08-27] MEDS: DOCUSATE SODIUM 250 MG CAPSULE PO SCH (10:34)
[2021-08-27] MEDS: CHOLECALCIFEROL 25 MCG TABLET PO SCH (10:34)
[2021-08-27] MEDS: polyethylene glycoL 3350 17 GM PACKET PO SCH (10:35)
[2021-08-27] MEDS: DEXAMETHASONE 10 MG/ML VIAL IVP SCH (10:42)
[2021-08-27] MEDS: ENOXAPARIN 40 MG/0.4 ML SYRINGE SUBQ SCH (10:44)
[2021-08-27 14:17] LABS: CALCIUM, IONIZED 1.07 mmol/L (1.15-1.33); VBG PH 7.463 (7.31-7.41)
--- NOTE | 2021-08-27 15:45 | PROVIDER PROGRESS NOTE ---
Assessment/Plan - Problem List (1) Acute and chronic respiratory failure with hypoxia Assessment/Plan: He continues to improve slowly. He is now down to an FiO2 of 40% and a PEEP of 5. His 2 sedatives were turned down to just Propofol and he was tried on CPAP twice today. His sats are maintaining in the mid 90s. This secondary to COVID- 19 pneumonia. We will continue Decadron and he has now completed IV antibiotics. We will continue to wean his vent settings as tolerated. We may need to extubate him to CPAP or BiPAP given his body habitus. I spoke with his Mikala today and updated her on his clinical condition. (2) Pneumonia due to COVID-19 virus Impression: This is the cause of his respiratory failure. He remains on Decadron. He has now completed IV antibiotics. (3) On mechanically assisted ventilation Impression: He is improving slightly from a ventilator standpoint as mentioned above. We wa s switched his sedation to propofol in preparation for potential extubation over the next 1 to 2 days. We will continue to wean the vent as tolerated. (4) Hypotension Impression: This was and again is related to sedation (when on both Propofol and Precedex) and Levophed meeds to be on to keep MAP 60. (5) Acute kidney injury superimposed on CKD Impression: His renal function continues to improve daily. He gets some iv fluids plus ng liquid feeds. We will continue to monitor his renal function and urine output. (6) Insulin dependent diabetes mellitus Impression: His blood glucose is better controlled after starting him on insulin drip. This has been exacerbated by the steroids. Once we can wean him off of the ventilator we can consider discontinuing the steroids and putting him back on his home insulin regimen. (7) Hyperkalemia Impression: Was likely secondary to the hyperglycemia and has improved. Follow BMP daily. (8) Iron deficiency anemia Impression: Hemoglobin is stable. We will resume home oral iron when appropriate. (9) Gram-positive bacteremia Impression: This is felt to be contaminant. Repeat cultures have been negative to date and the other set was negative. Antibiotics have been discontinued. - Current Meds Current Meds: Current Medications Generic Name Dose Route Start Last Admin Trade Name Freq PRN Reason Stop Dose Admin Albuterol 2.5 mg 08/19/21 11:45 08/22/21 21:41 Albuterol Neb 2.5 Mg/3 Ml INH 2.5 mg Q4HR PRN Administration Wheezing Atorvastatin Calcium 40 mg 08/19/21 21:00 08/26/21 21:32 Atorvastatin 40 Mg Tablet PO 40 mg QPM DINESH Administration Chlorhexidine Gluconate 15 ml 08/19/21 23:00 08/27/21 10:34 Chlorhexidine Gluconate 15 Ml Udc PO 15 ml BID DINESH Administration Cholecalciferol 50 mcg 08/21/21 09:00 08/27/21 10:34 Cholecalciferol 25 Mcg Tablet PO 50 mcg DAILY DINESH Administration Dexamethasone 6 mg 08/20/21 09:00 08/27/21 10:42 Dexamethasone 10 Mg/Ml Vial IVP 08/28/21 09:01 6 mg DAILY DINESH Administration Docusate Sodium 250 - 500 mg 08/26/21 09:00 08/27/21 10:34 Docusate Sodium 250 Mg Capsule PO 250 mg DAILY DINESH Administration Enoxaparin Sodium 40 mg 08/27/21 09:00 08/27/21 10:44 Enoxaparin 40 Mg/0.4 Ml Syringe SUBQ 40 mg DAILY DINESH Administration Fentanyl 75 mcg 08/25/21 15:42 08/26/21 11:16 Fentanyl 100 Mcg/2 Ml Vial IVP 75 mcg Q2HR PRN Administration PAIN Sodium Chloride 500 mls @ 20 mls/hr 08/20/21 05:55 08/27/21 08:39 Normal Saline 0.9% IV 10 mls/hr Q24H PRN Administration TKO RATE Propofol 1,000 mg in 100 mls @ 9.6 mls/hr 08/25/21 13:00 08/27/21 15:39 Diprivan IV 10 mcg/kg/min .[id number] DINESH 9.6 mls/hr Titration Protocol 10 MCG/KG/MIN Dexmedetomidine HCl 400 mcg/ 100 mls @ 8 mls/hr 08/25/21 16:00 08/27/21 13:24 Sodium Chloride IV 08/27/21 21:30 0.6 mcg/kg/hr .[id number] DINESH 24 mls/hr Administration Protocol 0.2 MCG/KG/HR Norepinephrine Bitartrate 8 mg 250 mls @ 15 mls/hr 08/26/21 17:00 08/27/21 13:17 / Dextrose IV 6 mcg/min .[id number] DINESH 11.25 mls/hr Titration Protocol 8 MCG/MIN Insulin Human Regular 100 unit 100 mls @ 7 mls/hr 08/26/21 19:15 08/27/21 08:50 / Sodium Chloride IV 7 unit/hr .[id number] DINESH 7 mls/hr Administration Protocol 7 UNIT/HR Pantoprazole Sodium 40 mg 08/20/21 07:00 08/27/21 06:52 Pantoprazole 40 Mg Vial IVP 40 mg QDAC DINESH Administration Polyethylene Glycol 17 gm 08/22/21 09:00 08/27/21 10:35 Polyethylene Glycol 3350 17 Gm Packet PO 17 gm DAILY DINESH Administration Senna 8.6 - 17.2 mg 08/26/21 09:00 08/27/21 10:34 Senna 8.6 Mg Tablet PO 8.6 mg DAILY DINESH Administration Sodium Chloride 10 ml 08/19/21 17:00 08/27/21 10:45 Sodium Chloride Flush 0.9% 10 Ml Syringe IVP 10 ml 0100,0900,1700 DINESH Administration Sodium Chloride 10 ml 08/19/21 11:45 08/22/21 04:42 Sodium Chloride Flush 0.9% 10 Ml Syringe IVP 30 ml PRN PRN Administration NEEDED PER PROVIDER ORDERS Sodium Chloride 20 ml 08/22/21 04:43 08/27/21 14:24 Sodium Chloride Flush 0.9% 10 Ml Syringe IVP 20 ml PRN PRN Administration After Blood Draw - Lab Result Fish Bone Diagrams: 08/27/21 04:45 08/27/21 04:45 - Additional Planning My Orders: My Active Orders 08/26/21 17:00 Dextrose 5% [D5w] 242 ml NORepinephrine [Levophed] 8 mg IV 8 mcg/min 08/27/21 08:06 Miscellaenous Nursing Order [RC] ONCE 08/27/21 09:00 Enoxaparin [Lovenox] 40 mg SUBQ DAILY 08/27/21 13:23 Miscellaenous Nursing Order [RC] QSHIFT 08/27/21 21:30 Sodium Chloride 0.9% 100Ml [Normal Saline 0.9% 100Ml] 240 ml Dexmedetomidine [Precedex] 1,000 mcg IV 0.2 mcg/kg/hr Subjective - Subjective Patient Reports: Other (Slightly awake, follows with eyes) Objective Vital Signs: Vital Signs - 24 hr 08/26/21 08/26/21 08/26/21 15:55 16:34 17:00 Temperature 37.2 C Heart Rate Heart Rate [ 75 58 L 84 Monitoring electrodes] Respiratory 23 31 H Rate Blood Pressure 68/42 L 117/77 133/52 H [Right Brachial artery] O2 Saturation 100 95 08/26/21 08/26/21 08/26/21 17:45 18:00 18:31 Temperature Heart Rate Heart Rate [ 86 76 79 Monitoring electrodes] Respiratory 29 H 27 H Rate Blood Pressure 74/38 L 133/52 H 138/69 H [Right Brachial artery] O2 Saturation 95 95 08/26/21 08/26/21 08/26/21 18:39 19:00 19:53 Temperature Heart Rate 68 72 Heart Rate [ 69 Monitoring electrodes] Respiratory 25 H Rate Blood Pressure [Right Brachial artery] O2 Saturation 94 08/26/21 08/26/21 08/26/21 20:00 21:00 22:00 Temperature 36.7 C Heart Rate Heart Rate [ 130 H 91 75 Monitoring electrodes] Respiratory 33 H 38 H 25 H Rate Blood Pressure 100/59 L 171/59 H 163/74 H [Right Brachial artery] O2 Saturation 95 96 97 08/26/21 08/26/21 08/27/21 23:00 23:17 00:00 Temperature 36.2 C L Heart Rate 96 Heart Rate [ 94 94 Monitoring electrodes] Respiratory 25 H 25 H Rate Blood Pressure 149/63 H 148/49 H [Right Brachial artery] O2 Saturation 98 97 08/27/21 08/27/21 08/27/21 01:00 02:00 02:14 Temperature 37.1 C Heart Rate 95 Heart Rate [ 96 96 Monitoring electrodes] Respiratory 25 H 25 H Rate Blood Pressure 155/63 H 151/70 H [Right Brachial artery] O2 Saturation 98 98 08/27/21 08/27/21 08/27/21 03:00 04:00 04:50 Temperature 37.3 C 37.1 C Heart Rate 92 Heart Rate [ 96 95 Monitoring electrodes] Respiratory 23 26 H Rate Blood Pressure 141/56 H 141/62 H [Right Brachial artery] O2 Saturation 96 98 08/27/21 08/27/21 08/27/21 05:00 05:54 06:00 Temperature 37.2 C 37.2 C Heart Rate Heart Rate [ 68 77 Monitoring electrodes] Respiratory 25 H 25 H 24 Rate Blood Pressure 123/62 119/56 L [Right Brachial artery] O2 Saturation 100 100 100 08/27/21 08/27/21 08/27/21 07:00 07:40 07:58 Temperature 37.1 C Heart Rate 93 Heart Rate [ 55 L 94 Monitoring electrodes] Respiratory 23 27 H Rate Blood Pressure 119/46 L 112/46 L [Right Brachial artery] O2 Saturation 99 99 08/27/21 08/27/21 08/27/21 09:00 09:11 10:00 Temperature Heart Rate 98 Heart Rate [ 95 93 Monitoring electrodes] Respiratory 27 H 31 H Rate Blood Pressure 110/47 L 103/45 L [Right Brachial artery] O2 Saturation 100 100 08/27/21 08/27/21 08/27/21 11:00 12:00 13:00 Temperature 37.4 C Heart Rate Heart Rate [ 90 93 95 Monitoring electrodes] Respiratory 25 H 29 H 32 H Rate Blood Pressure 111/53 L 111/60 131/75 H [Right Brachial artery] O2 Saturation 97 99 96 08/27/21 08/27/21 08/27/21 13:09 14:00 15:31 Temperature Heart Rate 103 H 83 Heart Rate [ 95 Monitoring electrodes] Respiratory 29 H Rate Blood Pressure 135/71 H [Right Brachial artery] O2 Saturation 96 Oxygen O2 Source Mechanical ventilator I&O (Last 24 Hrs): Intake and Output Totals x24h 08/25/21 08/26/21 08/27/21 23:59 23:59 23:59 Intake Total 4730.147 3600.767 1421.253 Output Total 2875 4195 3180 Balance 1855.147 -594.233 -1758.747 General: Other (Slightly awake) HEENT: Mucous membr. moist/pink, Other (On vent, ET tube and ng tube in place) Neck: Supple Neuro: Other (Slightly awake) Cardiovascular: Regular rate Respiratory: Breath sounds nml (anteriorly) Abdomen: Soft (Obese) Extremities: No edema, Other (Skin is thivk, elephant-like) - Results Results: Laboratory Results WBC 18.8 x10^3/uL (4.8-10.8) H 08/27/21 04:45 RBC 4.15 10^6/uL (4.70-6.10) L 08/27/21 04:45 Hgb 11.4 g/dL (14.0-18.0) L 08/27/21 04:45 Hct 37.6 % (42.0-52.0) L 08/27/21 04:45 MCV 90.6 fL (80.0-94.0) 08/27/21 04:45 MCH 27.5 pg (27.0-31.0) 08/27/21 04:45 MCHC 30.3 g/dL (32.0-36.0) L 08/27/21 04:45 RDW 18.4 % (12.0-15.0) H 08/27/21 04:45 Plt Count 551 10^3/uL (130-450) H 08/27/21 04:45 MPV 9.7 fL (7.4-11.4) 08/27/21 04:45 Neut # (Auto) Not Reportable 08/27/21 04:45 Lymph # (Auto) Not Reportable 08/27/21 04:45 Stevens # (Auto) Not Reportable 08/27/21 04:45 Eos # (Auto) Not Reportable 08/27/21 04:45 Baso # (Auto) Not Reportable 08/27/21 04:45 Absolute Nucleated RBC Not Reportable 08/27/21 04:45 Total Counted 100 08/27/21 04:45 Band Neuts % (Manual) 1 % (0-10) 08/27/21 04:45 Abnorm Lymph % (Manual) 0 % 08/27/21 04:45 Metamyelocytes % 1 % (-0) H 08/27/21 04:45 Myelocytes % 1 % (-0) H 08/27/21 04:45 Nucleated RBC % Not Reportable 08/27/21 04:45 Neutrophils # (Manual) 15.6 10^3/uL (1.5-6.6) H 08/27/21 04:45 Lymphocytes # (Manual) 1.1 10^3/uL (1.5-3.5) L 08/27/21 04:45 Monocytes # (Manual) 1.7 10^3/uL (0.0-1.0) H 08/27/21 04:45 Eosinophils # (Manual) 0.0 10^3/uL (0-0.7) 08/27/21 04:45 Basophils # (Manual) 0.0 10^3/uL (0-0.1) 08/27/21 04:45 Nucleated RBCs 1 % 08/27/21 04:45 Differential Comment MANUAL DIFFERENTIAL 08/27/21 04:45 WBC Morphology NORMAL APPEARANCE (NORMAL) 08/25/21 04:50 Platelet Estimate INCREASED (>450,000) (NORMAL) 08/27/21 04:45 Platelet Morphology NORMAL APPEARANCE (NORMAL) 08/26/21 04:40 RBC Morph Micro Appear NORMAL APPEARANCE (NORMAL) 08/27/21 04:45 PT 15.3 secs (9.9-12.6) H 08/19/21 13:44 INR 1.4 (0.8-1.2) H 08/19/21 13:44 D-Dimer 527.1 ng/mL (200.0-255.0) H 08/22/21 04:45 Bld Gas Analysis Time 1317 08/25/21 13:17 Sample Site RIGHT RADIAL 08/25/21 13:17 ABG pH 7.42 (7.35-7.45) 08/25/21 13:17 ABG pCO2 48 mmHg (34-45) H 08/25/21 13:17 ABG pO2 57 mmHg (80-100) L 08/25/21 13:17 ABG HCO3 30.5 mmol/L (22.0-26.0) H 08/25/21 13:17 ABG Total CO2 32.0 MMOL/L (21.0-29.0) H 08/25/21 13:17 ABG O2 Saturation 88 % (94-98) L 08/25/21 13:17 ABG Base Excess 5.2 mmol/L (-2.0-3.0) H 08/25/21 13:17 Endy Test POSITIVE 08/25/21 13:17 VBG pH 7.463 (7.31-7.41) H 08/27/21 14:05 Ionized Calcium 1.07 mmol/L (1.15-1.33) L 08/27/21 14:05 Respiration Rate 22 b/min 08/25/21 13:17 O2 Delivery Device VENTILATOR 08/25/21 13:17 Vent Mode ASSIST/CONTROL 08/25/21 13:17 FiO2 45.00 08/25/21 13:17 Tidal Volume 500 mL 08/25/21 13:17 PEEP 7 cmH2O 08/25/21 13:17 Sodium 141 mmol/L (135-145) 08/27/21 04:45 Potassium 4.9 mmol/L (3.5-5.0) 08/27/21 04:45 Chloride 102 mmol/L (101-111) 08/27/21 04:45 Carbon Dioxide 29 mmol/L (21-32) 08/27/21 04:45 Anion Gap 10.0 (6-13) 08/27/21 04:45 BUN 40 mg/dL (6-20) H 08/27/21 04:45 Creatinine 1.3 mg/dL (0.6-1.2) H 08/27/21 04:45 Estimated GFR (MDRD) 54 (>89) L 08/27/21 04:45 Glucose 185 mg/dL (70-100) H 08/27/21 04:45 POC Whole Bld Glucose 217 mg/dL (70 - 100) H 08/27/21 14:03 Lactic Acid 1.3 mmol/L (0.5-2.2) 08/19/21 10:05 Calcium 7.8 mg/dL (8.5-10.3) L 08/27/21 04:45 Ionized Calcium YES 08/26/21 04:40 Phosphorus 4.3 mg/dL (2.5-4.6) 08/27/21 04:45 Magnesium 2.5 mg/dL (1.7-2.8) 08/27/21 04:45 Total Bilirubin 0.6 mg/dL (0.2-1.0) 08/27/21 04:45 Direct Bilirubin 0.1 mg/dL (0.1-0.5) 08/24/21 04:20 AST 29 IU/L (10-42) 08/27/21 04:45 ALT 24 IU/L (10-60) 08/27/21 04:45 Alkaline Phosphatase 61 IU/L (42-121) 08/27/21 04:45 Troponin I High Sens 11.4 ng/L (2.3-19.7) 08/19/21 10:05 C-Reactive Protein 6.6 mg/dL (0-1.0) H 08/21/21 04:53 B-Natriuretic Peptide 54 pg/mL (5-100) 08/19/21 10:05 Total Protein 6.4 g/dL (6.7-8.2) L 08/27/21 04:45 Albumin 2.5 g/dL (3.2-5.5) L 08/27/21 04:45 Globulin 3.9 g/dL (2.1-4.2) 08/27/21 04:45 Albumin/Globulin Ratio 0.6 (1.0-2.2) L 08/27/21 04:45 Prealbumin 26 mg/dL (18-45) 08/27/21 04:45 25-OH Vitamin D Total 10 ng/mL (30-100) L 08/20/21 13:55 TSH 0.13 uIU/mL (0.34-5.60) L 08/21/21 04:00 Free T4 1.27 ng/dL (0.58-1.64) 08/21/21 04:00 Nasal Adenovirus (PCR) NOT DETECTED 08/19/21 10:15 Nasal B. parapertussis DNA (PCR) NOT DETECTED 08/19/21 10:15 Nasal Coronavir 229E PCR NOT DETECTED 08/19/21 10:15 Nasal Coronavir HKU1 PCR NOT DETECTED 08/19/21 10:15 Nasal Coronavir NL63 PCR NOT DETECTED 08/19/21 10:15 Nasal Coronavir OC43 PCR NOT DETECTED 08/19/21 10:15 Nasal Enterovir/Rhinovir PCR DETECTED A 08/19/21 10:15 Nasal Influenza B PCR NOT DETECTED 08/19/21 10:15 Nasal Influenza A PCR NOT DETECTED 08/19/21 10:15 Nasal Parainfluen 1 PCR NOT DETECTED 08/19/21 10:15 Nasal Parainfluen 2 PCR NOT DETECTED 08/19/21 10:15 Nasal Parainfluen 3 PCR NOT DETECTED 08/19/21 10:15 Nasal Parainfluen 4 PCR NOT DETECTED 08/19/21 10:15 Nasal RSV (PCR) NOT DETECTED 08/19/21 10:15 Nasal Screen MRSA (PCR) NEGATIVE (NEGATIVE) 08/19/21 13:30 Nasal B.pertussis DNA PCR NOT DETECTED 08/19/21 10:15 Nasal C.pneumoniae (PCR) NOT DETECTED 08/19/21 10:15 Richy Human Metapneumo PCR NOT DETECTED 08/19/21 10:15 Nasal M.pneumoniae (PCR) NOT DETECTED 08/19/21 10:15 Nasal SARS-CoV-2 (PCR) DETECTED A 08/19/21 10:15 Ref Lab Test Result Cancelled 08/19/21 10:05 - Procedures Procedures: Procedures ASSISTANCE WITH RESPIRATORY VENTILATION, <24 HRS, CPAP (12/05/15) CATARAC PHACOEMULS/ASPIR (03/29/14) ENDOSC POLYPECTOMY OF LG INTEST (05/12/13) ESOPHAGOGASTRODUODENOSCOPY [EGD] W/CLOSED BIOPSY (05/12/13) INSERT LENS AT CATAR EXT (03/29/14) INSERTION OF INFUSION DEV INTO L FEMOR VEIN, PERC APPROACH (04/22/19) TRANSFUSE NONAUT FROZEN PLASMA IN PERIPH VEIN, PERC (04/22/19) TRANSFUSE NONAUT RED BLOOD CELLS IN CENTRAL VEIN, PERC (04/22/19)
[2021-08-27] MEDS: ATORVASTATIN 40 MG TABLET PO SCH (20:30)
[2021-08-27 20:51] LABS: CALCIUM, IONIZED 1.09 mmol/L (1.15-1.33); VBG PH 7.432 (7.31-7.41)
[2021-08-27] MEDS: DEXMEDETOMIDINE IV SCH (22:22)
[2021-08-27] MEDS: SODIUM CHLORIDE 0.9% IV SCH (22:22)
[2021-08-27] MEDS ORDERED: CALCIUM CHLORIDE ABBOJECT 1000MG/10 ML SYRINGE ONE (23:19)
[2021-08-28] MEDS: PROPOFOL 1000 MG/100 ML 1,000 MG/100 ML BOTTLE IV SCH (01:34)
[2021-08-28 04:52] LABS: BASOPHILS % (AUTO) 0.2 %; EOSINOPHILS % (AUTO) 0.4 %; HCT - HEMATOCRIT 35.7 % (42.0-52.0); HGB - HEMOGLOBIN 10.6 g/dL (14.0-18.0); LYMPHOCYTES % (AUTO) 13.4 %; MEAN CORPUSCULAR HEMOGLOBIN 27.8 pg (27.0-31.0); MEAN CORPUSCULAR HGB CONC 29.7 g/dL (32.0-36.0); MEAN CORPUSCULAR VOLUME 93.7 fL (80.0-94.0); MEAN PLATELET VOLUME 9.9 fL (7.4-11.4); MONOCYTES % (AUTO) 12.5 %; NEUTROPHILS % (AUTO) 71.9 %; PLT - PLATELET COUNT 426 10^3/uL (130-450); RED BLOOD COUNT 3.81 10^6/uL (4.70-6.10); RED CELL DISTRIBUTION WIDTH 18.4 % (12.0-15.0); WHITE BLOOD COUNT 14.3 x10^3/uL (4.8-10.8)
[2021-08-28 04:59] LABS: CALCIUM 8.2 mg/dL (8.5-10.3); CREATININE 1.3 mg/dL (0.6-1.2); MAGNESIUM 2.3 mg/dL (1.7-2.8); POTASSIUM 5.2 mmol/L (3.5-5.0)
[2021-08-28 05:38] LABS: ABNORMAL LYMPHS % (MANUAL) 0 %
[2021-08-28 06:01] LABS: CALCIUM, IONIZED 1.1 mmol/L (1.15-1.33); VBG PH 7.424 (7.31-7.41)
[2021-08-28 06:20] LABS: BAND NEUTROPHILS % (MANUAL) 2 %; DIFFERENTIAL COMMENT MANUAL DIFFERENTIAL; LYMPHOCYTES # (MANUAL) 2.1 10^3/uL (1.5-3.5); LYMPHOCYTES % (MANUAL) 15 %; MONOCYTES # (MANUAL) 1.6 10^3/uL (0.0-1.0); NEUTROPHILS # (MANUAL) 10.6 10^3/uL (1.5-6.6); PLATELET ESTIMATE, MANUAL NORMAL (130-450,000) (NORMAL); RBC MORPHOLOGY (MULTIPLE) NORMAL APPEARANCE (NORMAL)
[2021-08-28] MEDS ORDERED: CALCIUM GLUCONATE 1,000 MG in SODIUM CHLORIDE 0.9% 50 ML IV ONE (06:49)
[2021-08-28] MEDS ORDERED: SODIUM CHLORIDE 0.9% 50 ML IV ONE (08:08)
[2021-08-28] MEDS: CHLORHEXIDINE GLUCONATE 15 ML UDC PO SCH ×2 (09:01→21:01)
[2021-08-28] MEDS: CHOLECALCIFEROL 25 MCG TABLET PO SCH (09:01)
[2021-08-28] MEDS: ENOXAPARIN 40 MG/0.4 ML SYRINGE SUBQ SCH (09:02)
[2021-08-28] MEDS: polyethylene glycoL 3350 17 GM PACKET PO SCH (09:03)
[2021-08-28] MEDS: DEXAMETHASONE 10 MG/ML VIAL IVP SCH (09:03)
[2021-08-28] MEDS: DOCUSATE SODIUM 250 MG CAPSULE PO SCH (09:05)
[2021-08-28] MEDS: INSULIN REGULAR HUMAN 100 UNIT in SODIUM CHLORIDE 0.9% 100ML 99 ML IV SCH ×3 (09:08→23:44)
[2021-08-28] MEDS: SENNA 8.6 MG TABLET PO SCH (09:09)
[2021-08-28] MEDS: fentaNYL 100 MCG/2 ML VIAL IVP PRN ×6 (09:25→23:05)
[2021-08-28] MEDS: SODIUM CHLORIDE FLUSH 0.9% 10 ML SYRINGE IVP SCH ×4 (09:32→23:06)
[2021-08-28] MEDS: DEXMEDETOMIDINE IV SCH (10:11)
[2021-08-28] MEDS: SODIUM CHLORIDE 0.9% IV SCH (10:11)
[2021-08-28] MEDS: PANTOPRAZOLE 40 MG VIAL IVP SCH (10:44)
[2021-08-28] MEDS ORDERED: FUROSEMIDE 40 MG/4 ML VIAL IVP STA (13:13)
--- NOTE | 2021-08-28 16:16 | PROVIDER PROGRESS NOTE ---
Assessment/Plan - Problem List (1) Acute and chronic respiratory failure with hypoxia Assessment/Plan: This secondary to COVID-19 pneumonia and Hx of COPD and possibly from obesity hypoventilation. He was down to an FiO2 of 40% and a PEEP of 5 on the vent. His 2 sedatives were turned down to just Propofol and he tolerated CPAP twice yesterday and this morning. Then his weaning parameters were checked and were in good values. He was extubated without complications at about 1100. Has a very weak cough and difficulty bringing up secretions, needs to be Yankauer suctioned. Today is the final day of iv Decadron and he has now completed IV antibiotics. Will give supplemental oxygen keeping sats greater than 88%, now using BIPAP. Remain in the ICU. Anesthesia was notified that he was extubated, in case he needed urgent re-intubation. He is also greater than 10 L positive in fluid balance since hospitalization. Will restart Lasix IV, now that BPs are better. I left a message on the home phone, for his Mikala today, with update on his clinical condition. (2) Pneumonia due to COVID-19 virus Impression: This is the cause of his respiratory failure. He remains on Decadron. He has now completed IV antibiotics. When he had severe oozing of blood from his IJ line 2 days ago, his Lovenox 150 twice daily empiric was changed to 40 mg daily prophylactic dose. (3) Severe COPD The RT was able to locate a PFT report that showed he has severe COPD with FEV1/FVC ratio of 30% of predicted. We will continue him on Prednisone orally, now that he has finished Decadron, a 10 day course. We will plan to taper the Prednisone very slowly, over many weeks. Will start him on inhaled Budesonide and continue the inhaled albuterol n ebulizer. We will start Singulair. Will give supplemental oxygen keeping sats greater than 88% (4) Accelerated junctional rhythm Last evening and through last night he was in a new heart rhythm, rate 70-80. He maintained his blood pressure with this. An EKG was repeated today and he has converted to sinus rhythm. We will continue to monitor his rhythm on telemetry. Remain in the ICU (5) Acute kidney injury superimposed on CKD Impression: His renal function continues to improve daily. He was getting iv fluids plus ng liquid feeds. Ng feeds stopped when he was extubated. We will continue to monitor his renal function and urine output. (6) Insulin dependent diabetes mellitus Impression: His blood glucose is better controlled on insulin drip. This has been exacerbated by the steroids. He was getting iv fluids plus ng liquid feeds. Ng feeds stopped when he was extubated. Once he is taking an oral diabetic diet, we will him back on an Insulin regimen and stop Insulin drip. (7) Hyperkalemia Impression: Was likely secondary to the hyperglycemia and has improved. Follow BMP daily. (8) Iron deficiency anemia Impression: Hemoglobin is stable. We will resume home oral iron when appropriate. (9) Gram-positive bacteremia Impression: This is felt to be contaminant. Repeat cultures have been negative to date and the other set was negative. Antibiotics have been discontinued. (10) Hypotension Impression: Resolved, Levophed was turned off when his 2 IV sedatives were stopped. - Current Meds Current Meds: Current Medications Generic Name Dose Route Start Last Admin Trade Name Freq PRN Reason Stop Dose Admin Albuterol 2.5 mg 08/19/21 11:45 08/22/21 21:41 Albuterol Neb 2.5 Mg/3 Ml INH 2.5 mg Q4HR PRN Administration Wheezing Atorvastatin Calcium 40 mg 08/19/21 21:00 08/27/21 20:30 Atorvastatin 40 Mg Tablet PO 40 mg QPM DINESH Administration Chlorhexidine Gluconate 15 ml 08/19/21 23:00 08/28/21 09:01 Chlorhexidine Gluconate 15 Ml Udc PO 15 ml BID DINESH Administration Cholecalciferol 50 mcg 08/21/21 09:00 08/28/21 09:01 Cholecalciferol 25 Mcg Tablet PO 50 mcg DAILY DINESH Administration Docusate Sodium 250 - 500 mg 08/26/21 09:00 08/28/21 09:05 Docusate Sodium 250 Mg Capsule PO 250 mg DAILY DINESH Administration Enoxaparin Sodium 40 mg 08/27/21 09:00 08/28/21 09:02 Enoxaparin 40 Mg/0.4 Ml Syringe SUBQ 40 mg DAILY DINESH Administration Fentanyl 75 mcg 08/25/21 15:42 08/28/21 14:44 Fentanyl 100 Mcg/2 Ml Vial IVP 75 mcg Q2HR PRN Administration PAIN Insulin Human Regular 100 unit 100 mls @ 7 mls/hr 08/26/21 19:15 08/28/21 09:08 / Sodium Chloride IV 7 unit/hr .[id number] DINESH 7 mls/hr Administration Protocol 7 UNIT/HR Pantoprazole Sodium 40 mg 08/20/21 07:00 08/28/21 10:44 Pantoprazole 40 Mg Vial IVP Not Given QDAC DINESH Polyethylene Glycol 17 gm 08/22/21 09:00 08/28/21 09:03 Polyethylene Glycol 3350 17 Gm Packet PO 17 gm DAILY DINESH Administration Senna 8.6 - 17.2 mg 08/26/21 09:00 08/28/21 09:09 Senna 8.6 Mg Tablet PO 8.6 mg DAILY DINESH Administration Sodium Chloride 10 ml 08/19/21 17:00 08/28/21 09:32 Sodium Chloride Flush 0.9% 10 Ml Syringe IVP 10 ml 0100,0900,1700 DINESH Administration Sodium Chloride 20 ml 08/22/21 04:43 08/27/21 14:24 Sodium Chloride Flush 0.9% 10 Ml Syringe IVP 20 ml PRN PRN Administration After Blood Draw - Lab Result Fish Bone Diagrams: 08/28/21 04:20 08/28/21 04:20 - EKG Results EKG Interpreted Independently: Yes EKG Comparison: Changed from prior EKG EKG Findings: Sinus tachycardia, rate 118, frequent PVCs, poor R wave progression. Since yesterday's EKG, the accelerated junctional rhythm has resolved. - Additional Planning Condition/Complexity: Critical My Orders: My Active Orders 08/27/21 18:15 NonViolent Restraint(s) Q24H 08/28/21 11:00 Extubate [RC] ONCE 08/28/21 12:07 BIPAP/CPAP - RT [RC] Q2H 08/28/21 13:14 Miscellaenous Nursing Order [RC] DAILY 08/28/21 14:59 Nebulizer/MDI Tx. [RC] QID Resp Teach Nebulizer/MDI [RC] .ONCE 08/28/21 19:00 Budesonide [Pulmicort] 0.5 mg INH RTBID 08/29/21 06:00 FUROSEMIDE INJ 40mg VIAL [LASIX INJ 40 mg VIAL] 40 mg IVP BIDDIURETIC 08/29/21 08:00 predniSONE [Deltasone] 20 mg PO DAILYWM 08/29/21 09:00 Aspirin EC [Ecotrin] 325 mg PO DAILY Subjective - Subjective Patient Reports: Other (More alert, nods head, follows commands, tries to speak (after extubated today)) Objective Vital Signs: Vital Signs - 24 hr 08/27/21 08/27/21 08/27/21 16:36 17:48 18:00 Temperature Heart Rate 83 Heart Rate [85] Heart Rate [ 69 Monitoring electrodes] Respiratory 27 H Rate Blood Pressure 84/47 L 80/55 L [Right Brachial artery] O2 Saturation 97 08/27/21 08/27/21 08/27/21 19:00 20:00 20:50 Temperature 36.3 C L Heart Rate 92 Heart Rate [85] Heart Rate [ 97 84 Monitoring electrodes] Respiratory 27 H 28 H Rate Blood Pressure 97/49 L 130/70 [Right Brachial artery] O2 Saturation 98 97 08/27/21 08/27/21 08/27/21 21:00 22:00 23:00 Temperature Heart Rate Heart Rate [85] Heart Rate [ 84 88 94 Monitoring electrodes] Respiratory 24 23 25 H Rate Blood Pressure 144/68 H 122/59 L 131/70 H [Right Brachial artery] O2 Saturation 97 97 97 08/27/21 08/28/21 08/28/21 23:30 00:00 01:00 Temperature 36.7 C Heart Rate 95 Heart Rate [85] Heart Rate [ 85 82 Monitoring electrodes] Respiratory 28 H 25 H Rate Blood Pressure 148/74 H 136/72 H [Right Brachial artery] O2 Saturation 97 97 08/28/21 08/28/21 08/28/21 02:00 02:30 03:00 Temperature Heart Rate 84 Heart Rate [85] Heart Rate [ 90 93 Monitoring electrodes] Respiratory 24 24 Rate Blood Pressure 129/75 146/71 H [Right Brachial artery] O2 Saturation 97 97 08/28/21 08/28/21 08/28/21 04:00 05:00 05:25 Temperature 36.7 C Heart Rate 95 Heart Rate [85] Heart Rate [ 95 86 Monitoring electrodes] Respiratory 25 H Rate Blood Pressure 138/78 H 89/49 L [Right Brachial artery] O2 Saturation 98 94 08/28/21 08/28/21 08/28/21 06:00 07:00 07:43 Temperature Heart Rate 93 Heart Rate [85] Heart Rate [ 93 93 Monitoring electrodes] Respiratory 24 Rate Blood Pressure 74/52 L 66/50 L [Right Brachial artery] O2 Saturation 94 96 08/28/21 08/28/21 08/28/21 08:00 09:00 09:10 Temperature 36.5 C Heart Rate 103 H Heart Rate [85] 85 Heart Rate [ 85 100 Monitoring electrodes] Respiratory 30 H 32 H Rate Blood Pressure 96/60 112/52 L [Right Brachial artery] O2 Saturation 96 94 08/28/21 08/28/21 08/28/21 10:00 10:30 10:54 Temperature Heart Rate Heart Rate [85] 108 H 109 H 109 H Heart Rate [ 108 H 109 H 109 H Monitoring electrodes] Respiratory 108 H 34 H 35 H Rate Blood Pressure 112/59 L 129/59 L 108/59 L [Right Brachial artery] O2 Saturation 95 92 08/28/21 08/28/21 08/28/21 11:00 11:17 11:36 Temperature Heart Rate Heart Rate [85] 115 H 118 H 118 H Heart Rate [ 115 H 118 H 118 H Monitoring electrodes] Respiratory 37 H 4 L 32 H Rate Blood Pressure 125/74 123/65 103/84 H [Right Brachial artery] O2 Saturation 87 L 92 93 08/28/21 08/28/21 08/28/21 11:38 12:00 13:00 Temperature Heart Rate 115 H Heart Rate [85] 120 H 117 H Heart Rate [ 120 H 117 H Monitoring electrodes] Respiratory 35 H 32 H Rate Blood Pressure 116/65 129/69 [Right Brachial artery] O2 Saturation 96 97 08/28/21 08/28/21 08/28/21 13:51 14:00 15:00 Temperature Heart Rate 121 H Heart Rate [85] 121 H Heart Rate [ 121 H Monitoring electrodes] Respiratory 21 33 H Rate Blood Pressure 116/68 135/67 H [Right Brachial artery] O2 Saturation 95 96 Oxygen O2 Source BIPAP I&O (Last 24 Hrs): Intake and Output Totals x24h 08/26/21 08/27/21 08/28/21 23:59 23:59 23:59 Intake Total 3600.767 2580.316 2470.795 Output Total 9014 0310 1895 Balance -594.233 -1999.684 575.795 General: Alert HEENT: Mucous membr. moist/pink, Other (edentulous) Neck: Supple Neuro: Alert, Non Focal Cardiovascular: Regular rate Respiratory: Other (RR elevated) Abdomen: Soft, Other (Obese with pannus) Extremities: No edema - Results Results: Laboratory Results WBC 14.3 x10^3/uL (4.8-10.8) H 08/28/21 04:20 RBC 3.81 10^6/uL (4.70-6.10) L 08/28/21 04:20 Hgb 10.6 g/dL (14.0-18.0) L 08/28/21 04:20 Hct 35.7 % (42.0-52.0) L 08/28/21 04:20 MCV 93.7 fL (80.0-94.0) 08/28/21 04:20 MCH 27.8 pg (27.0-31.0) 08/28/21 04:20 MCHC 29.7 g/dL (32.0-36.0) L 08/28/21 04:20 RDW 18.4 % (12.0-15.0) H 08/28/21 04:20 Plt Count 426 10^3/uL (130-450) 08/28/21 04:20 MPV 9.9 fL (7.4-11.4) 08/28/21 04:20 Neut # (Auto) Not Reportable 08/28/21 04:20 Lymph # (Auto) Not Reportable 08/28/21 04:20 Dillon # (Auto) Not Reportable 08/28/21 04:20 Eos # (Auto) Not Reportable 08/28/21 04:20 Baso # (Auto) Not Reportable 08/28/21 04:20 Absolute Nucleated RBC Not Reportable 08/28/21 04:20 Total Counted 100 08/28/21 04:20 Band Neuts % (Manual) 2 % (0-10) 08/28/21 04:20 Abnorm Lymph % (Manual) 0 % 08/28/21 04:20 Metamyelocytes % 1 % (-0) H 08/27/21 04:45 Myelocytes % 1 % (-0) H 08/27/21 04:45 Nucleated RBC % Not Reportable 08/28/21 04:20 Neutrophils # (Manual) 10.6 10^3/uL (1.5-6.6) H 08/28/21 04:20 Lymphocytes # (Manual) 2.1 10^3/uL (1.5-3.5) 08/28/21 04:20 Monocytes # (Manual) 1.6 10^3/uL (0.0-1.0) H 08/28/21 04:20 Eosinophils # (Manual) 0.0 10^3/uL (0-0.7) 08/28/21 04:20 Basophils # (Manual) 0.0 10^3/uL (0-0.1) 08/28/21 04:20 Nucleated RBCs 1 % 08/27/21 04:45 Differential Comment MANUAL DIFFERENTIAL 08/28/21 04:20 WBC Morphology NORMAL APPEARANCE (NORMAL) 08/25/21 04:50 Platelet Estimate NORMAL (130-450,000) (NORMAL) 08/28/21 04:20 Platelet Morphology NORMAL APPEARANCE (NORMAL) 08/26/21 04:40 RBC Morph Micro Appear NORMAL APPEARANCE (NORMAL) 08/28/21 04:20 PT 15.3 secs (9.9-12.6) H 08/19/21 13:44 INR 1.4 (0.8-1.2) H 08/19/21 13:44 D-Dimer 527.1 ng/mL (200.0-255.0) H 08/22/21 04:45 Bld Gas Analysis Time 1317 08/25/21 13:17 Sample Site RIGHT RADIAL 08/25/21 13:17 ABG pH 7.42 (7.35-7.45) 08/25/21 13:17 ABG pCO2 48 mmHg (34-45) H 08/25/21 13:17 ABG pO2 57 mmHg (80-100) L 08/25/21 13:17 ABG HCO3 30.5 mmol/L (22.0-26.0) H 08/25/21 13:17 ABG Total CO2 32.0 MMOL/L (21.0-29.0) H 08/25/21 13:17 ABG O2 Saturation 88 % (94-98) L 08/25/21 13:17 ABG Base Excess 5.2 mmol/L (-2.0-3.0) H 08/25/21 13:17 Endy Test POSITIVE 08/25/21 13:17 VBG pH 7.424 (7.31-7.41) H 08/28/21 04:20 Ionized Calcium 1.10 mmol/L (1.15-1.33) L 08/28/21 04:20 Respiration Rate 22 b/min 08/25/21 13:17 O2 Delivery Device VENTILATOR 08/25/21 13:17 Vent Mode ASSIST/CONTROL 08/25/21 13:17 FiO2 45.00 08/25/21 13:17 Tidal Volume 500 mL 08/25/21 13:17 PEEP 7 cmH2O 08/25/21 13:17 Sodium 134 mmol/L (135-145) L 08/28/21 04:20 Potassium 5.2 mmol/L (3.5-5.0) H 08/28/21 04:20 Chloride 97 mmol/L (101-111) L 08/28/21 04:20 Carbon Dioxide 28 mmol/L (21-32) 08/28/21 04:20 Anion Gap 9.0 (6-13) 08/28/21 04:20 BUN 38 mg/dL (6-20) H 08/28/21 04:20 Creatinine 1.3 mg/dL (0.6-1.2) H 08/28/21 04:20 Estimated GFR (MDRD) 54 (>89) L 08/28/21 04:20 Glucose 223 mg/dL (70-100) H 08/28/21 04:20 POC Whole Bld Glucose 167 mg/dL (70 - 100) H 08/28/21 16:05 Lactic Acid 1.3 mmol/L (0.5-2.2) 08/19/21 10:05 Calcium 8.2 mg/dL (8.5-10.3) L 08/28/21 04:20 Ionized Calcium YES 08/26/21 04:40 Phosphorus 5.6 mg/dL (2.5-4.6) H 08/28/21 04:20 Magnesium 2.3 mg/dL (1.7-2.8) 08/28/21 04:20 Total Bilirubin 0.6 mg/dL (0.2-1.0) 08/27/21 04:45 Direct Bilirubin 0.1 mg/dL (0.1-0.5) 08/24/21 04:20 AST 29 IU/L (10-42) 08/27/21 04:45 ALT 24 IU/L (10-60) 08/27/21 04:45 Alkaline Phosphatase 61 IU/L (42-121) 08/27/21 04:45 Troponin I High Sens 11.4 ng/L (2.3-19.7) 08/19/21 10:05 C-Reactive Protein 6.6 mg/dL (0-1.0) H 08/21/21 04:53 B-Natriuretic Peptide 54 pg/mL (5-100) 08/19/21 10:05 Total Protein 6.4 g/dL (6.7-8.2) L 08/27/21 04:45 Albumin 2.5 g/dL (3.2-5.5) L 08/27/21 04:45 Globulin 3.9 g/dL (2.1-4.2) 08/27/21 04:45 Albumin/Globulin Ratio 0.6 (1.0-2.2) L 08/27/21 04:45 Prealbumin 26 mg/dL (18-45) 08/27/21 04:45 25-OH Vitamin D Total 10 ng/mL (30-100) L 08/20/21 13:55 TSH 0.13 uIU/mL (0.34-5.60) L 08/21/21 04:00 Free T4 1.27 ng/dL (0.58-1.64) 08/21/21 04:00 Nasal Adenovirus (PCR) NOT DETECTED 08/19/21 10:15 Nasal B. parapertussis DNA (PCR) NOT DETECTED 08/19/21 10:15 Nasal Coronavir 229E PCR NOT DETECTED 08/19/21 10:15 Nasal Coronavir HKU1 PCR NOT DETECTED 08/19/21 10:15 Nasal Coronavir NL63 PCR NOT DETECTED 08/19/21 10:15 Nasal Coronavir OC43 PCR NOT DETECTED 08/19/21 10:15 Nasal Enterovir/Rhinovir PCR DETECTED A 08/19/21 10:15 Nasal Influenza B PCR NOT DETECTED 08/19/21 10:15 Nasal Influenza A PCR NOT DETECTED 08/19/21 10:15 Nasal Parainfluen 1 PCR NOT DETECTED 08/19/21 10:15 Nasal Parainfluen 2 PCR NOT DETECTED 08/19/21 10:15 Nasal Parainfluen 3 PCR NOT DETECTED 08/19/21 10:15 Nasal Parainfluen 4 PCR NOT DETECTED 08/19/21 10:15 Nasal RSV (PCR) NOT DETECTED 08/19/21 10:15 Nasal Screen MRSA (PCR) NEGATIVE (NEGATIVE) 08/19/21 13:30 Nasal B.pertussis DNA PCR NOT DETECTED 08/19/21 10:15 Nasal C.pneumoniae (PCR) NOT DETECTED 08/19/21 10:15 Richy Human Metapneumo PCR NOT DETECTED 08/19/21 10:15 Nasal M.pneumoniae (PCR) NOT DETECTED 08/19/21 10:15 Nasal SARS-CoV-2 (PCR) DETECTED A 08/19/21 10:15 Ref Lab Test Result Cancelled 08/19/21 10:05 - Procedures Procedures: Procedures ASSISTANCE WITH RESPIRATORY VENTILATION, <24 HRS, CPAP (12/05/15) CATARAC PHACOEMULS/ASPIR (03/29/14) ENDOSC POLYPECTOMY OF LG INTEST (05/12/13) ESOPHAGOGASTRODUODENOSCOPY [EGD] W/CLOSED BIOPSY (05/12/13) INSERT LENS AT CATAR EXT (03/29/14) INSERTION OF INFUSION DEV INTO L FEMOR VEIN, PERC APPROACH (04/22/19) TRANSFUSE NONAUT FROZEN PLASMA IN PERIPH VEIN, PERC (04/22/19) TRANSFUSE NONAUT RED BLOOD CELLS IN CENTRAL VEIN, PERC (04/22/19)
[2021-08-28 17:50] LABS: ABG PH 7.37 (7.35-7.45)
[2021-08-28 17:51] LABS: ABG BASE EXCESS 3.7 mmol/L (-2.0-3.0); ABG OXYGEN SATURATION 90 % (94-98); ABG PCO2 53 mmHg (34-45); ABG PO2 66 mmHg (80-100); ABG TCO2 31.6 MMOL/L (21.0-29.0); ALLEN TEST POSITIVE
[2021-08-28] MEDS: SCOPOLAMINE PATCH TOP SCH (18:15)
[2021-08-28] MEDS: SODIUM CHLORIDE FLUSH 0.9% 10 ML SYRINGE IVP PRN (18:35)
[2021-08-28] MEDS: BUDESONIDE 0.5 MG/2 ML NEB INH SCH (20:53)
[2021-08-28] MEDS: ATORVASTATIN 40 MG TABLET PO SCH (20:56)
[2021-08-28] MEDS ORDERED: KETOROLAC 30 MG/ML VIAL IVP PRN (23:51)
[2021-08-29] MEDS: SODIUM CHLORIDE FLUSH 0.9% 10 ML SYRINGE IVP PRN ×7 (00:45→20:33)
[2021-08-29] MEDS: fentaNYL 100 MCG/2 ML VIAL IVP PRN ×6 (02:26→20:32)
[2021-08-29 05:31] LABS: ABG BASE EXCESS 4.7 mmol/L (-2.0-3.0); ABG HCO3 30.5 mmol/L (22.0-26.0); ABG OXYGEN SATURATION 94 % (94-98); ABG PCO2 52 mmHg (34-45); ABG PH 7.39 (7.35-7.45); ABG PO2 77 mmHg (80-100); ABG TCO2 32.1 MMOL/L (21.0-29.0); ALLEN TEST POSITIVE
[2021-08-29 05:32] LABS: ABG RESPIRATORY RATE 10 b/min
[2021-08-29 06:01] LABS: BASOPHILS % (AUTO) 0.2 %; EOSINOPHILS % (AUTO) 0.2 %; HCT - HEMATOCRIT 31.9 % (42.0-52.0); HGB - HEMOGLOBIN 9.5 g/dL (14.0-18.0); LYMPHOCYTES % (AUTO) 11.5 %; MEAN CORPUSCULAR HEMOGLOBIN 27.8 pg (27.0-31.0); MEAN CORPUSCULAR HGB CONC 29.8 g/dL (32.0-36.0); MEAN CORPUSCULAR VOLUME 93.3 fL (80.0-94.0); MEAN PLATELET VOLUME 9.5 fL (7.4-11.4); MONOCYTES % (AUTO) 11.8 %; NEUTROPHILS % (AUTO) 75.2 %; PLT - PLATELET COUNT 331 10^3/uL (130-450); RED BLOOD COUNT 3.42 10^6/uL (4.70-6.10); RED CELL DISTRIBUTION WIDTH 18.2 % (12.0-15.0); WHITE BLOOD COUNT 13.3 x10^3/uL (4.8-10.8)
[2021-08-29 06:10] LABS: ABNORMAL LYMPHS % (MANUAL) 0 %
[2021-08-29 06:11] LABS: CALCIUM 6.8 mg/dL (8.5-10.3); CREATININE 1.6 mg/dL (0.6-1.2); MAGNESIUM 2.7 mg/dL (1.7-2.8); POTASSIUM 5.1 mmol/L (3.5-5.0)
[2021-08-29] MEDS: BUDESONIDE 0.5 MG/2 ML NEB INH SCH ×2 (06:20→18:08)
[2021-08-29] MEDS: ALBUTEROL NEB 2.5 MG/3 ML INH PRN ×2 (06:20→18:08)
[2021-08-29 06:26] LABS: BAND NEUTROPHILS % (MANUAL) 1 %; LYMPHOCYTES # (MANUAL) 1.9 10^3/uL (1.5-3.5); LYMPHOCYTES % (MANUAL) 14 %; MONOCYTES # (MANUAL) 1.7 10^3/uL (0.0-1.0); NEUTROPHILS # (MANUAL) 9.7 10^3/uL (1.5-6.6)
[2021-08-29 06:27] LABS: DIFFERENTIAL COMMENT MANUAL DIFFERENTIAL; PLATELET ESTIMATE, MANUAL NORMAL (130-450,000) (NORMAL)
[2021-08-29] MEDS: PANTOPRAZOLE 40 MG VIAL IVP SCH (06:48)
[2021-08-29] MEDS: FUROSEMIDE 40 MG/4 ML VIAL IVP SCH ×2 (06:49→14:25)
[2021-08-29] MEDS: SODIUM CHLORIDE FLUSH 0.9% 10 ML SYRINGE IVP SCH ×3 (06:49→23:05)
[2021-08-29] MEDS ORDERED: ALBUMIN 25% 12.5 GM/50 ML VIAL IV STA (07:32)
[2021-08-29] MEDS: ASPIRIN EC 325 MG TABLET PO SCH (08:36)
[2021-08-29] MEDS: CHOLECALCIFEROL 25 MCG TABLET PO SCH (08:36)
[2021-08-29] MEDS: predniSONE 20 MG TABLET PO SCH (08:36)
[2021-08-29] MEDS: polyethylene glycoL 3350 17 GM PACKET PO SCH (08:38)
[2021-08-29] MEDS: ZINC OXIDE 20% OINT 30 GM TUBE TOP PRN ×3 (09:00→18:11)
[2021-08-29] MEDS: CHLORHEXIDINE GLUCONATE 15 ML UDC PO SCH ×2 (09:04→20:33)
[2021-08-29] MEDS: ENOXAPARIN 40 MG/0.4 ML SYRINGE SUBQ SCH (09:04)
[2021-08-29] MEDS: DOCUSATE SODIUM 250 MG CAPSULE PO SCH (09:08)
[2021-08-29] MEDS: SENNA 8.6 MG TABLET PO SCH (09:08)
--- NOTE | 2021-08-29 11:11 | PROVIDER PROGRESS NOTE ---
Assessment/Plan - Problem List (1) Acute and chronic respiratory failure with hypoxia Assessment/Plan: This was secondary to COVID-19 pneumonia and Hx of COPD and possibly from obesity hypoventilation. He was extubated yesyterday and is on BIPAP alternating with n.c. in the ICU. He got 10 days of iv Decadron and he is on po Prednisone He is also greater than 10 L positive in fluid balance since hospitalization. Now getting iv bid Lasix. I spoke to his Mikala yesterday (after left message) about being extubated and with update on his clinical condition. (2) Pneumonia due to COVID-19 virus Impression: This is the cause of his respiratory failure. He has now completed Remdesivir, Decadron and a course of iV antibiotics. When he had severe oozing of blood from his IJ line several days ago, his Lovenox 150 twice daily empiric was changed to a low 40 mg daily prophylactic dose. (3) Severe COPD A PFT report from several years ago showed he has severe COPD with FEV1/FVC ratio of 30% of predicted. I mention this to his by phone yesterday, she said he was a heavy smoker but has now quit about 7 years ago. He is not on home O2 We will continue him on Prednisone orally, now that he has finished Decadron, a 10 day course. We will plan to taper the Prednisone very slowly, over many weeks. We started him on inhaled Budesonide and Singulair and continue the inhaled albuterol nebulizer. (4) Skin tear on buttocks Pain is his biggest complaint today, because he is no longer sedated (was extubated yesterday). Will order topical care, turn and reposition and Fentanyl doses and Lidocaine patch for pain management. (5) Acute kidney injury superimposed on CKD Impression: His renal function continues to improve daily. He was getting iv fluids plus ng liquid feeds. Ng feeds stopped when he was extubated. We will continue to monitor his renal function and urine output. (6) Insulin dependent diabetes mellitus Impression: His blood glucose was exacerbated by the steroids. He was getting iv fluids plus ng liquid feeds. Ng feeds stopped when he was extubated. Today we will order a diabetic diet, we will him back on an ss Insulin. (7) Hyperkalemia Impression: Was likely secondary to the hyperglycemia and has improved. Follow BMP daily. (8) Iron deficiency anemia Impression: Hemoglobin is stable. We will resume home oral iron when appropriate. (9) Gram-positive bacteremia Impression: This is felt to be contaminant. Repeat cultures have been negative to date and the other set was negative. Antibiotics have been discontinued. (10) Hypotension Impression: Resolved, Levophed was turned off yesterday (11) Accelerated junctional rhythm Resolved We will continue to monitor his rhythm on telemetry. Remain in the ICU - Current Meds Current Meds: Current Medications Generic Name Dose Route Start Last Admin Trade Name Freq PRN Reason Stop Dose Admin Albuterol 2.5 mg 08/19/21 11:45 08/29/21 06:20 Albuterol Neb 2.5 Mg/3 Ml INH 2.5 mg Q4HR PRN Administration Wheezing Aspirin 325 mg 08/29/21 09:00 08/29/21 08:36 Aspirin Ec 325 Mg Tablet PO 325 mg DAILY DINESH Administration Atorvastatin Calcium 40 mg 08/19/21 21:00 08/28/21 20:56 Atorvastatin 40 Mg Tablet PO 40 mg QPM DINESH Administration Budesonide 0.5 mg 08/28/21 19:00 08/29/21 06:20 Budesonide 0.5 Mg/2 Ml Neb INH 0.5 mg RTBID DINESH Administration Chlorhexidine Gluconate 15 ml 08/19/21 23:00 08/29/21 09:04 Chlorhexidine Gluconate 15 Ml Udc PO 15 ml BID DINESH Administration Cholecalciferol 50 mcg 08/21/21 09:00 08/29/21 08:36 Cholecalciferol 25 Mcg Tablet PO 50 mcg DAILY DINESH Administration Docusate Sodium 250 - 500 mg 08/26/21 09:00 08/29/21 09:08 Docusate Sodium 250 Mg Capsule PO Not Given DAILY DINESH Enoxaparin Sodium 40 mg 08/27/21 09:00 08/29/21 09:04 Enoxaparin 40 Mg/0.4 Ml Syringe SUBQ 40 mg DAILY DINESH Administration Fentanyl 75 mcg 08/25/21 15:42 08/29/21 05:45 Fentanyl 100 Mcg/2 Ml Vial IVP 75 mcg Q2HR PRN Administration PAIN Furosemide 40 mg 08/29/21 06:00 08/29/21 06:49 Furosemide 40 Mg/4 Ml Vial IVP 40 mg BIDDIURETIC DINESH Administration Pantoprazole Sodium 40 mg 08/20/21 07:00 08/29/21 06:48 Pantoprazole 40 Mg Vial IVP 40 mg QDAC DINESH Administration Polyethylene Glycol 17 gm 08/22/21 09:00 08/29/21 08:38 Polyethylene Glycol 3350 17 Gm Packet PO 17 gm DAILY DINESH Administration Prednisone 20 mg 08/29/21 08:00 08/29/21 08:36 Prednisone 20 Mg Tablet PO 20 mg DAILYWM DINESH Administration Scopolamine HBr 1 patch 08/28/21 18:00 08/28/21 18:15 Scopolamine Patch TOP 1 patch Q3D DINESH Administration Senna 8.6 - 17.2 mg 08/26/21 09:00 08/29/21 09:08 Senna 8.6 Mg Tablet PO Not Given DAILY DINESH Sodium Chloride 10 ml 08/19/21 17:00 08/29/21 06:49 Sodium Chloride Flush 0.9% 10 Ml Syringe IVP 10 ml 0100,0900,1700 DINESH Administration Sodium Chloride 20 ml 08/22/21 04:43 08/29/21 11:08 Sodium Chloride Flush 0.9% 10 Ml Syringe IVP 30 ml PRN PRN Administration After Blood Draw - Lab Result Fish Bone Diagrams: 08/29/21 05:45 08/29/21 05:45 - Additional Planning My Orders: My Active Orders 08/28/21 11:00 Extubate [RC] ONCE 08/28/21 13:14 Miscellaenous Nursing Order [RC] DAILY 08/28/21 18:00 Scopolamine Patch [Transderm-Scop] 1 patch TOP Q3D 08/28/21 19:00 Budesonide [Pulmicort] 0.5 mg INH RTBID 08/29/21 06:00 FUROSEMIDE INJ 40mg VIAL [LASIX INJ 40 mg VIAL] 40 mg IVP BIDDIURETIC 08/29/21 07:33 BiPAP [BiPAP/CPAP] [RC] Q2HR 08/29/21 08:00 CALCIUM, IONIZED ([facility]) [BG] Routine PHOSPHORUS [CHEM] Routine predniSONE [Deltasone] 20 mg PO DAILYWM 08/29/21 09:00 Aspirin EC [Ecotrin] 325 mg PO DAILY 08/29/21 11:05 Blood Glucose Checks - Eating [RC] 0800,1200,1700,2100 08/29/21 Lunch DIET [Dysphagia - Puree] [DIET] 08/29/21 12:00 Insulin Aspart [NovoLOG] 1 - 5 unit SUBQ 0800,1200,1700,2100 08/30/21 05:00 ALBUMIN [CHEM] DAILYLAB Subjective - Subjective Patient Reports: Feeling Better, Other (He is speaking today, was extubated yesterday. He complains of low back pain and pain of his buttocks.) Objective Vital Signs: Vital Signs - 24 hr 08/28/21 08/28/21 08/28/21 11:17 11:36 11:38 Temperature Heart Rate 115 H Heart Rate [85] 118 H 118 H Heart Rate [ 118 H 118 H Monitoring electrodes] Respiratory 4 L 32 H Rate Blood Pressure [Left Radial artery] Blood Pressure 123/65 103/84 H [Right Brachial artery] O2 Saturation 92 93 08/28/21 08/28/21 08/28/21 12:00 13:00 13:51 Temperature Heart Rate 121 H Heart Rate [85] 120 H 117 H Heart Rate [ 120 H 117 H Monitoring electrodes] Respiratory 35 H 32 H Rate Blood Pressure [Left Radial artery] Blood Pressure 116/65 129/69 [Right Brachial artery] O2 Saturation 96 97 08/28/21 08/28/21 08/28/21 14:00 15:00 16:00 Temperature 37.6 C Heart Rate Heart Rate [85] 121 H 121 H Heart Rate [ 121 H Monitoring electrodes] Respiratory 21 33 H 34 H Rate Blood Pressure [Left Radial artery] Blood Pressure 116/68 135/67 H 143/74 H [Right Brachial artery] O2 Saturation 95 96 92 08/28/21 08/28/21 08/28/21 17:00 17:13 18:00 Temperature Heart Rate 96 Heart Rate [85] 114 H 119 H Heart Rate [ 114 H Monitoring electrodes] Respiratory 32 H 31 H Rate Blood Pressure [Left Radial artery] Blood Pressure 151/82 H 109/66 [Right Brachial artery] O2 Saturation 100 97 08/28/21 08/28/21 08/28/21 19:00 20:00 20:01 Temperature Heart Rate 96 Heart Rate [85] 116 H Heart Rate [ 119 H Monitoring electrodes] Respiratory 28 H 28 H Rate Blood Pressure 104/64 [Left Radial artery] Blood Pressure 116/75 [Right Brachial artery] O2 Saturation 96 96 08/28/21 08/28/21 08/28/21 20:56 21:00 22:35 Temperature Heart Rate 112 H Heart Rate [85] Heart Rate [ 110 H 108 H Monitoring electrodes] Respiratory 27 H 30 H 25 H Rate Blood Pressure 96/55 L 101/58 L [Left Radial artery] Blood Pressure [Right Brachial artery] O2 Saturation 96 93 08/28/21 08/29/21 08/29/21 23:00 00:00 01:00 Temperature 36.6 C Heart Rate 95 Heart Rate [85] Heart Rate [ 108 H 109 H 112 H Monitoring electrodes] Respiratory 24 21 24 Rate Blood Pressure 113/55 L 99/53 L 108/61 [Left Radial artery] Blood Pressure [Right Brachial artery] O2 Saturation 94 94 92 08/29/21 08/29/21 08/29/21 02:00 03:00 04:00 Temperature Heart Rate 93 Heart Rate [85] Heart Rate [ 111 H 111 H 111 H Monitoring electrodes] Respiratory 22 24 24 Rate Blood Pressure 114/68 123/56 L 104/56 L [Left Radial artery] Blood Pressure [Right Brachial artery] O2 Saturation 93 93 93 08/29/21 08/29/21 08/29/21 05:00 05:20 06:00 Temperature Heart Rate 96 Heart Rate [85] Heart Rate [ 113 H 113 H Monitoring electrodes] Respiratory 24 22 Rate Blood Pressure 102/61 93/55 L [Left Radial artery] Blood Pressure [Right Brachial artery] O2 Saturation 93 93 08/29/21 08/29/21 08/29/21 06:20 07:00 07:34 Temperature Heart Rate 112 H 116 H Heart Rate [85] Heart Rate [ 113 H Monitoring electrodes] Respiratory 22 22 Rate Blood Pressure 91/58 L [Left Radial artery] Blood Pressure [Right Brachial artery] O2 Saturation 94 08/29/21 08:00 Temperature 36.4 C L Heart Rate Heart Rate [85] Heart Rate [ 116 H Monitoring electrodes] Respiratory 17 Rate Blood Pressure 98/58 L [Left Radial artery] Blood Pressure [Right Brachial artery] O2 Saturation 89 L Oxygen O2 Source Nasal cannula I&O (Last 24 Hrs): Intake and Output Totals x24h 08/27/21 08/28/21 08/29/21 23:59 23:59 23:59 Intake Total 2580.316 2690.795 5.717 Output Total 4580 2730 1120 Balance -1999.684 -39.205 -1114.283 General: Alert HEENT: Mucous membr. moist/pink, Other (Wearing a BIPAP mask) Neck: Supple Neuro: Alert, Non Focal Cardiovascular: No murmurs Respiratory: Breath sounds nml (distant breath sounds due to obesity) Abdomen: Soft, No tenderness Genitourinary: Other (Has a N[place]) Rectal: Other (Skintears of both mid-buttocks) Extremities: No edema - Results Results: Laboratory Results WBC 13.3 x10^3/uL (4.8-10.8) H 08/29/21 05:45 RBC 3.42 10^6/uL (4.70-6.10) L 08/29/21 05:45 Hgb 9.5 g/dL (14.0-18.0) L 08/29/21 05:45 Hct 31.9 % (42.0-52.0) L 08/29/21 05:45 MCV 93.3 fL (80.0-94.0) 08/29/21 05:45 MCH 27.8 pg (27.0-31.0) 08/29/21 05:45 MCHC 29.8 g/dL (32.0-36.0) L 08/29/21 05:45 RDW 18.2 % (12.0-15.0) H 08/29/21 05:45 Plt Count 331 10^3/uL (130-450) 08/29/21 05:45 MPV 9.5 fL (7.4-11.4) 08/29/21 05:45 Neut # (Auto) Not Reportable 08/29/21 05:45 Lymph # (Auto) Not Reportable 08/29/21 05:45 [place] # (Auto) Not Reportable 08/29/21 05:45 Eos # (Auto) Not Reportable 08/29/21 05:45 Baso # (Auto) Not Reportable 08/29/21 05:45 Absolute Nucleated RBC Not Reportable 08/29/21 05:45 Total Counted 100 08/29/21 05:45 Band Neuts % (Manual) 1 % (0-10) 08/29/21 05:45 Abnorm Lymph % (Manual) 0 % 08/29/21 05:45 Metamyelocytes % 1 % (-0) H 08/27/21 04:45 Myelocytes % 1 % (-0) H 08/27/21 04:45 Nucleated RBC % Not Reportable 08/29/21 05:45 Neutrophils # (Manual) 9.7 10^3/uL (1.5-6.6) H 08/29/21 05:45 Lymphocytes # (Manual) 1.9 10^3/uL (1.5-3.5) 08/29/21 05:45 Monocytes # (Manual) 1.7 10^3/uL (0.0-1.0) H 08/29/21 05:45 Eosinophils # (Manual) 0.0 10^3/uL (0-0.7) 08/29/21 05:45 Basophils # (Manual) 0.0 10^3/uL (0-0.1) 08/29/21 05:45 Nucleated RBCs 1 % 08/27/21 04:45 Differential Comment MANUAL DIFFERENTIAL 08/29/21 05:45 WBC Morphology NORMAL APPEARANCE (NORMAL) 08/25/21 04:50 Platelet Estimate NORMAL (130-450,000) (NORMAL) 08/29/21 05:45 Platelet Morphology NORMAL APPEARANCE (NORMAL) 08/26/21 04:40 RBC Morph Micro Appear 1+ ANISOCYTOSIS (NORMAL) 1+ HYPOCHROMASIA (NORMAL) 1+ OVALOCYTES (NORMAL) 08/29/21 05:45 RBC Morph Micro Appear 1+ ANISOCYTOSIS (NORMAL) 1+ HYPOCHROMASIA (NORMAL) 1+ OVALOCYTES (NORMAL) 08/29/21 05:45 RBC Morph Micro Appear 1+ ANISOCYTOSIS (NORMAL) 1+ HYPOCHROMASIA (NORMAL) 1+ OVALOCYTES (NORMAL) 08/29/21 05:45 PT 15.3 secs (9.9-12.6) H 08/19/21 13:44 INR 1.4 (0.8-1.2) H 08/19/21 13:44 D-Dimer 527.1 ng/mL (200.0-255.0) H 08/22/21 04:45 Bld Gas Analysis Time 0523 08/29/21 05:19 Sample Site RIGHT RADIAL 08/29/21 05:19 ABG pH 7.39 (7.35-7.45) 08/29/21 05:19 ABG pCO2 52 mmHg (34-45) H 08/29/21 05:19 ABG pO2 77 mmHg (80-100) L 08/29/21 05:19 ABG HCO3 30.5 mmol/L (22.0-26.0) H 08/29/21 05:19 ABG Total CO2 32.1 MMOL/L (21.0-29.0) H 08/29/21 05:19 ABG O2 Saturation 94 % (94-98) 08/29/21 05:19 ABG Base Excess 4.7 mmol/L (-2.0-3.0) H 08/29/21 05:19 Endy Test POSITIVE 08/29/21 05:19 VBG pH 7.424 (7.31-7.41) H 08/28/21 04:20 Ionized Calcium 1.10 mmol/L (1.15-1.33) L 08/28/21 04:20 Respiration Rate 10 b/min 08/29/21 05:19 O2 Delivery Device BiPAP 08/29/21 05:19 Vent Mode ASSIST/CONTROL 08/25/21 13:17 FiO2 50.00 08/29/21 05:19 Tidal Volume 500 mL 08/25/21 13:17 PEEP 7 cmH2O 08/25/21 13:17 EPAP 8 cmH2O 08/29/21 05:19 IPAP 16 cmH2O 08/29/21 05:19 Sodium 141 mmol/L (135-145) 08/29/21 05:45 Potassium 5.1 mmol/L (3.5-5.0) H 08/29/21 05:45 Chloride 102 mmol/L (101-111) 08/29/21 05:45 Carbon Dioxide 30 mmol/L (21-32) 08/29/21 05:45 Anion Gap 9.0 (6-13) 08/29/21 05:45 BUN 57 mg/dL (6-20) H 08/29/21 05:45 Creatinine 1.6 mg/dL (0.6-1.2) H 08/29/21 05:45 Estimated GFR (MDRD) 42 (>89) L 08/29/21 05:45 Glucose 123 mg/dL (70-100) H 08/29/21 05:45 POC Whole Bld Glucose 122 mg/dL (70 - 100) H 08/29/21 08:33 Lactic Acid 1.3 mmol/L (0.5-2.2) 08/19/21 10:05 Calcium 6.8 mg/dL (8.5-10.3) L 08/29/21 05:45 Ionized Calcium YES 08/26/21 04:40 Phosphorus 5.6 mg/dL (2.5-4.6) H 08/28/21 04:20 Magnesium 2.7 mg/dL (1.7-2.8) 08/29/21 05:45 Total Bilirubin 0.6 mg/dL (0.2-1.0) 08/27/21 04:45 Direct Bilirubin 0.1 mg/dL (0.1-0.5) 08/24/21 04:20 AST 29 IU/L (10-42) 08/27/21 04:45 ALT 24 IU/L (10-60) 08/27/21 04:45 Alkaline Phosphatase 61 IU/L (42-121) 08/27/21 04:45 Troponin I High Sens 11.4 ng/L (2.3-19.7) 08/19/21 10:05 C-Reactive Protein 6.6 mg/dL (0-1.0) H 08/21/21 04:53 B-Natriuretic Peptide 54 pg/mL (5-100) 08/19/21 10:05 Total Protein 6.4 g/dL (6.7-8.2) L 08/27/21 04:45 Albumin 2.5 g/dL (3.2-5.5) L 08/27/21 04:45 Globulin 3.9 g/dL (2.1-4.2) 08/27/21 04:45 Albumin/Globulin Ratio 0.6 (1.0-2.2) L 08/27/21 04:45 Prealbumin 26 mg/dL (18-45) 08/27/21 04:45 25-OH Vitamin D Total 10 ng/mL (30-100) L 08/20/21 13:55 TSH 0.13 uIU/mL (0.34-5.60) L 08/21/21 04:00 Free T4 1.27 ng/dL (0.58-1.64) 08/21/21 04:00 Nasal Adenovirus (PCR) NOT DETECTED 08/19/21 10:15 Nasal B. parapertussis DNA (PCR) NOT DETECTED 08/19/21 10:15 Nasal Coronavir 229E PCR NOT DETECTED 08/19/21 10:15 Nasal Coronavir HKU1 PCR NOT DETECTED 08/19/21 10:15 Nasal Coronavir NL63 PCR NOT DETECTED 08/19/21 10:15 Nasal Coronavir OC43 PCR NOT DETECTED 08/19/21 10:15 Nasal Enterovir/Rhinovir PCR DETECTED A 08/19/21 10:15 Nasal Influenza B PCR NOT DETECTED 08/19/21 10:15 Nasal Influenza A PCR NOT DETECTED 08/19/21 10:15 Nasal Parainfluen 1 PCR NOT DETECTED 08/19/21 10:15 Nasal Parainfluen 2 PCR NOT DETECTED 08/19/21 10:15 Nasal Parainfluen 3 PCR NOT DETECTED 08/19/21 10:15 Nasal Parainfluen 4 PCR NOT DETECTED 08/19/21 10:15 Nasal RSV (PCR) NOT DETECTED 08/19/21 10:15 Nasal Screen MRSA (PCR) NEGATIVE (NEGATIVE) 08/19/21 13:30 Nasal B.pertussis DNA PCR NOT DETECTED 08/19/21 10:15 Nasal C.pneumoniae (PCR) NOT DETECTED 08/19/21 10:15 Richy Human Metapneumo PCR NOT DETECTED 08/19/21 10:15 Nasal M.pneumoniae (PCR) NOT DETECTED 08/19/21 10:15 Nasal SARS-CoV-2 (PCR) DETECTED A 08/19/21 10:15 Ref Lab Test Result Cancelled 08/19/21 10:05 - Procedures Procedures: Procedures ASSISTANCE WITH RESPIRATORY VENTILATION, <24 HRS, CPAP (12/05/15) CATARAC PHACOEMULS/ASPIR (03/29/14) ENDOSC POLYPECTOMY OF LG INTEST (05/12/13) ESOPHAGOGASTRODUODENOSCOPY [EGD] W/CLOSED BIOPSY (05/12/13) INSERT LENS AT CATAR EXT (03/29/14) INSERTION OF INFUSION DEV INTO L FEMOR VEIN, PERC APPROACH (04/22/19) TRANSFUSE NONAUT FROZEN PLASMA IN PERIPH VEIN, PERC (04/22/19) TRANSFUSE NONAUT RED BLOOD CELLS IN CENTRAL VEIN, PERC (04/22/19)
[2021-08-29 11:19] LABS: CALCIUM, IONIZED 0.88 mmol/L (1.15-1.33); VBG PH 7.376 (7.31-7.41)
[2021-08-29] MEDS ORDERED: CALCIUM CHLORIDE 2,000 MG in SODIUM CHLORIDE 0.9% 100ML 100 ML IV ONE (12:45)
[2021-08-29] MEDS: INSULIN ASPART 300 UNIT/3 ML PEN SUBQ SCH ×3 (13:22→20:42)
[2021-08-29 16:27] LABS: CALCIUM, IONIZED 1.05 mmol/L (1.15-1.33); VBG PH 7.37 (7.31-7.41)
[2021-08-29] MEDS: CALCIUM CARBONATE CHEW 500 MG TABLET PO SCH ×2 (19:35→23:05)
[2021-08-29] MEDS: ATORVASTATIN 40 MG TABLET PO SCH (20:33)
[2021-08-30] MEDS: fentaNYL 100 MCG/2 ML VIAL IVP PRN ×5 (01:08→21:00)
[2021-08-30] MEDS: SODIUM CHLORIDE FLUSH 0.9% 10 ML SYRINGE IVP PRN ×5 (01:08→20:59)
[2021-08-30] MEDS: SODIUM CHLORIDE FLUSH 0.9% 10 ML SYRINGE IVP SCH ×6 (04:45→22:52)
[2021-08-30 05:13] LABS: VBG PH 7.385 (7.31-7.41)
[2021-08-30 05:14] LABS: CALCIUM, IONIZED 0.98 mmol/L (1.15-1.33)
[2021-08-30 05:46] LABS: BASOPHILS % (AUTO) 0.1 %; EOSINOPHILS # (AUTO) 0.1 10^3/uL (0.0-0.7); EOSINOPHILS % (AUTO) 0.9 %; HGB - HEMOGLOBIN 9.4 g/dL (14.0-18.0); LYMPHOCYTES # (AUTO) 0.9 10^3/uL (1.5-3.5); LYMPHOCYTES % (AUTO) 7.4 %; MEAN CORPUSCULAR HEMOGLOBIN 28.7 pg (27.0-31.0); MEAN CORPUSCULAR HGB CONC 30.3 g/dL (32.0-36.0); MEAN CORPUSCULAR VOLUME 94.8 fL (80.0-94.0); MEAN PLATELET VOLUME 10.2 fL (7.4-11.4); MONOCYTES # (AUTO) 1.5 10^3/uL (0.0-1.0); MONOCYTES % (AUTO) 12.7 %; NEUTROPHILS # (AUTO) 9.1 10^3/uL (1.5-6.6); NEUTROPHILS % (AUTO) 78.4 %; PLT - PLATELET COUNT 336 10^3/uL (130-450); RED BLOOD COUNT 3.27 10^6/uL (4.70-6.10); RED CELL DISTRIBUTION WIDTH 18.4 % (12.0-15.0); WHITE BLOOD COUNT 11.6 x10^3/uL (4.8-10.8)
[2021-08-30 05:52] LABS: ALBUMIN 2.6 g/dL (3.2-5.5); CALCIUM 7.4 mg/dL (8.5-10.3); CREATININE 1.6 mg/dL (0.6-1.2)
[2021-08-30] MEDS: FUROSEMIDE 40 MG/4 ML VIAL IVP SCH ×2 (06:31→13:16)
[2021-08-30] MEDS: PANTOPRAZOLE 40 MG VIAL IVP SCH (06:31)
[2021-08-30] MEDS: CHLORHEXIDINE GLUCONATE 15 ML UDC PO SCH ×2 (08:02→20:59)
[2021-08-30] MEDS: ALBUTEROL NEB 2.5 MG/3 ML INH PRN ×2 (08:06→19:15)
[2021-08-30] MEDS: BUDESONIDE 0.5 MG/2 ML NEB INH SCH ×2 (08:07→19:15)
[2021-08-30] MEDS: predniSONE 20 MG TABLET PO SCH (09:11)
[2021-08-30] MEDS: polyethylene glycoL 3350 17 GM PACKET PO SCH (09:15)
[2021-08-30] MEDS: CHOLECALCIFEROL 25 MCG TABLET PO SCH (09:15)
[2021-08-30] MEDS: ASPIRIN EC 325 MG TABLET PO SCH (09:15)
[2021-08-30] MEDS: ENOXAPARIN 40 MG/0.4 ML SYRINGE SUBQ SCH (09:16)
[2021-08-30] MEDS: DOCUSATE SODIUM 250 MG CAPSULE PO SCH (09:17)
[2021-08-30] MEDS: INSULIN ASPART 300 UNIT/3 ML PEN SUBQ SCH ×3 (09:18→21:02)
[2021-08-30] MEDS: SENNA 8.6 MG TABLET PO SCH (09:20)
[2021-08-30] MEDS: ZINC OXIDE 20% OINT 30 GM TUBE TOP PRN ×3 (09:21→20:59)
--- NOTE | 2021-08-30 13:42 | PROVIDER PROGRESS NOTE ---
Assessment/Plan - Problem List (1) Acute and chronic respiratory failure with hypoxia Assessment/Plan: This was secondary to COVID-19 pneumonia and Hx of COPD and possibly from obesity hypoventilation. He was extubated and is on BIPAP alternating with n.c. and remains in the ICU. He got 10 days of iv Decadron and he is on po Prednisone He is also greater than 10 L positive in fluid balance since hospitalization. Now getting iv Lasix. I spoke to his Mikala at bedside today with update on his clinical condition. (2) Pneumonia due to COVID-19 virus Impression: This is the cause of his respiratory failure. He has now completed Remdesivir, Decadron and a course of iV antibiotics. When he had severe oozing of blood from his IJ line several days ago, his L ovenox 150 twice daily empiric was changed to a low 40 mg daily prophylactic dose. (3) Severe COPD A PFT report from several years ago showed he has severe COPD with FEV1/FVC ratio of 30% of predicted. I mention this to his by phone yesterday, she said he was a heavy smoker but has now quit about 7 years ago. He is not on home O2 We will continue him on Prednisone orally, now that he has finished Decadron, a 10 day course. We will plan to taper the Prednisone very slowly, over many weeks. We started him on inhaled Budesonide and Singulair and continue the inhaled albuterol nebulizer. (4) Skin tear on buttocks Pain is his biggest complaint since being extubated, because he is no longer sedated (was extubated yesterday). Will order topical care, turn and reposition and Fentanyl doses and Lidocaine patch for pain management. (5) Acute kidney injury superimposed on CKD Impression: His renal function continues to improve daily. He was getting iv fluids plus ng liquid feeds. Ng feeds stopped when he was extubated. We will continue to monitor his renal function and urine output. (6) Insulin dependent diabetes mellitus Impression: His blood glucose was exacerbated by the steroids. Ng feeds stopped when he was extubated. We started a diabetic diet, and on ss Insulin. (7) Morbid Obesity (BMI 50-59) As per Hx. (8) Sleep apnea on CPAP The was able to give detailed history of him being on a CPAP machine at home, but the machine was recalled 3 months ago, and the [facility] has not sent him a new one yet despite many of her phone calls. This event was reported to RT. We will work on obtaining a proper CPAP, or most likely BiPAP machine for him because of this diagnosis (9) Iron deficiency anemia Impression: Hemoglobin is stable. We will resume home oral iron when appropriate. (10) Gram-positive bacteremia Impression: This is felt to be contaminant. Repeat cultures have been negative to date and the other set was negative. Antibiotics have been discontinued. (11) Hypotension Impression: Resolved, Levophed was turned off (12) Accelerated junctional rhythm Resolved We will continue to monitor his rhythm on telemetry. Remain in the ICU (13) Hyperkalemia Impression: Resolved - Current Meds Current Meds: Current Medications Generic Name Dose Route Start Last Admin Trade Name Freq PRN Reason Stop Dose Admin Albuterol 2.5 mg 08/19/21 11:45 08/30/21 08:06 Albuterol Neb 2.5 Mg/3 Ml INH 2.5 mg Q4HR PRN Administration Wheezing Aspirin 325 mg 08/29/21 09:00 08/30/21 09:15 Aspirin Ec 325 Mg Tablet PO 325 mg DAILY DINESH Administration Atorvastatin Calcium 40 mg 08/19/21 21:00 08/29/21 20:33 Atorvastatin 40 Mg Tablet PO 40 mg QPM DINESH Administration Budesonide 0.5 mg 08/28/21 19:00 08/30/21 08:07 Budesonide 0.5 Mg/2 Ml Neb INH 0.5 mg RTBID DINESH Administration Chlorhexidine Gluconate 15 ml 08/19/21 23:00 08/30/21 08:02 Chlorhexidine Gluconate 15 Ml Udc PO 15 ml BID DINESH Administration Cholecalciferol 50 mcg 08/21/21 09:00 08/30/21 09:15 Cholecalciferol 25 Mcg Tablet PO 50 mcg DAILY DINESH Administration Docusate Sodium 250 - 500 mg 08/26/21 09:00 08/30/21 09:17 Docusate Sodium 250 Mg Capsule PO Not Given DAILY DINESH Enoxaparin Sodium 40 mg 08/27/21 09:00 08/30/21 09:16 Enoxaparin 40 Mg/0.4 Ml Syringe SUBQ 40 mg DAILY DINESH Administration Fentanyl 75 mcg 08/25/21 15:42 08/30/21 13:24 Fentanyl 100 Mcg/2 Ml Vial IVP 75 mcg Q2HR PRN Administration PAIN Furosemide 40 mg 08/29/21 06:00 08/30/21 13:16 Furosemide 40 Mg/4 Ml Vial IVP 40 mg BIDDIURETIC DINESH Administration Insulin Aspart 1 - 5 unit 08/29/21 12:00 08/30/21 13:17 Insulin Aspart 300 Unit/3 Ml Pen SUBQ 3 unit 0800,1200,1700,2100 DINESH Administration Protocol Multi-Ingredient Ointment 1 applic 08/22/21 21:41 08/30/21 09:21 Zinc Oxide 20% Oint 30 Gm Tube TOP 1 applic PRN PRN Administration Skin Care Polyethylene Glycol 17 gm 08/22/21 09:00 08/30/21 09:15 Polyethylene Glycol 3350 17 Gm Packet PO 17 gm DAILY DINESH Administration Prednisone 20 mg 08/29/21 08:00 08/30/21 09:11 Prednisone 20 Mg Tablet PO 20 mg DAILYWM DINESH Administration Scopolamine HBr 1 patch 08/28/21 18:00 08/28/21 18:15 Scopolamine Patch TOP 1 patch Q3D DINESH Administration Senna 8.6 - 17.2 mg 08/26/21 09:00 08/30/21 09:20 Senna 8.6 Mg Tablet PO Not Given DAILY DINESH Sodium Chloride 10 ml 08/19/21 17:00 08/30/21 13:18 Sodium Chloride Flush 0.9% 10 Ml Syringe IVP 10 ml 0100,0900,1700 DINESH Administration Sodium Chloride 20 ml 08/22/21 04:43 08/30/21 09:21 Sodium Chloride Flush 0.9% 10 Ml Syringe IVP 30 ml PRN PRN Administration After Blood Draw - Lab Result Fish Bone Diagrams: 08/31/21 05:35 08/31/21 13:09 - Additional Planning My Orders: My Active Orders 08/29/21 14:54 Lidocaine Patch 5% [Lidoderm Patch] 1 patch TOP DAILY PRN 08/29/21 18:14 Oxygen Therapy [RC] .PRN 08/30/21 11:01 Min Oil/Dimeth/Coconut Oil Crm [Cavilon] 1 applic TOP PRN PRN 08/31/21 05:00 CALCIUM, IONIZED ([facility]) [BG] DAILYLAB PHOSPHORUS [CHEM] DAILYLAB Subjective - Subjective Patient Reports: Feeling Better, Back Pain, Pain (Has severe buttock pain (at skin tears)) Objective Vital Signs: Vital Signs - 24 hr 08/29/21 08/29/21 08/29/21 14:00 14:52 15:00 Temperature Heart Rate 110 H Heart Rate [ 108 H 102 H Monitoring electrodes] Respiratory 14 18 Rate Blood Pressure 103/58 L 102/63 [Left Radial artery] O2 Saturation 95 95 08/29/21 08/29/21 08/29/21 16:00 17:00 18:00 Temperature 36.5 C Heart Rate Heart Rate [ 113 H 94 97 Monitoring electrodes] Respiratory 19 20 18 Rate Blood Pressure 109/61 102/59 L 125/63 [Left Radial artery] O2 Saturation 95 93 90 L 08/29/21 08/29/21 08/29/21 18:16 19:00 20:00 Temperature 37 C Heart Rate 107 H Heart Rate [ 93 111 H Monitoring electrodes] Respiratory 18 20 20 Rate Blood Pressure 129/62 142/71 H [Left Radial artery] O2 Saturation 91 L 91 L 08/29/21 08/29/21 08/29/21 21:00 22:00 23:00 Temperature Heart Rate Heart Rate [ 116 H 117 H 120 H Monitoring electrodes] Respiratory 19 23 19 Rate Blood Pressure 117/58 L 110/61 134/73 H [Left Radial artery] O2 Saturation 93 91 L 93 08/30/21 08/30/21 08/30/21 00:00 01:00 01:40 Temperature 37.0 C Heart Rate 117 H Heart Rate [ 115 H 119 H Monitoring electrodes] Respiratory 19 23 Rate Blood Pressure 122/72 126/73 [Left Radial artery] O2 Saturation 90 L 90 L 08/30/21 08/30/21 08/30/21 02:00 03:00 04:00 Temperature Heart Rate Heart Rate [ 120 H 120 H 124 H Monitoring electrodes] Respiratory 14 22 30 H Rate Blood Pressure 117/67 127/68 113/68 [Left Radial artery] O2 Saturation 93 93 90 L 08/30/21 08/30/21 08/30/21 05:00 05:30 06:00 Temperature 37.4 C Heart Rate 118 H Heart Rate [ 123 H 100 Monitoring electrodes] Respiratory 21 20 Rate Blood Pressure 104/65 118/62 [Left Radial artery] O2 Saturation 93 92 08/30/21 08/30/21 08/30/21 07:00 08:00 08:10 Temperature 37.2 C Heart Rate 120 H Heart Rate [ 119 H 123 H Monitoring electrodes] Respiratory 22 27 H Rate Blood Pressure 116/66 124/63 [Left Radial artery] O2 Saturation 94 92 08/30/21 08/30/21 08/30/21 08:12 09:00 10:00 Temperature Heart Rate 101 H Heart Rate [ 137 H 102 H Monitoring electrodes] Respiratory 18 20 15 Rate Blood Pressure 92/59 L 107/91 H [Left Radial artery] O2 Saturation 93 91 L 08/30/21 08/30/21 08/30/21 11:00 12:00 13:00 Temperature 36.9 C Heart Rate Heart Rate [ 101 H 120 H 125 H Monitoring electrodes] Respiratory 19 23 21 Rate Blood Pressure 113/59 L 98/60 106/47 L [Left Radial artery] O2 Saturation 90 L 95 90 L Oxygen O2 Source Nasal cannula I&O (Last 24 Hrs): Intake and Output Totals x24h 08/28/21 08/29/21 08/30/21 23:59 23:59 23:59 Intake Total 2690.795 315.717 190 Output Total 2730 3739 2300 Balance -39.205 -3423.283 -2110 General: Alert, Oriented x3 HEENT: Mucous membr. moist/pink, Other (wearing O2 per n.c.) Neck: Supple Neuro: Alert, Non Focal Cardiovascular: Regular rate Respiratory: No respiratory distress (while on O2, voice is also no longer hoarse) Abdomen: Other (Obese with pannus) Genitourinary: Other (Nunn in place) Extremities: No edema, Other (Skin is thick) - Results Results: Laboratory Results WBC 11.6 x10^3/uL (4.8-10.8) H 08/30/21 04:40 RBC 3.27 10^6/uL (4.70-6.10) L 08/30/21 04:40 Hgb 9.4 g/dL (14.0-18.0) L 08/30/21 04:40 Hct 31.0 % (42.0-52.0) L 08/30/21 04:40 MCV 94.8 fL (80.0-94.0) H 08/30/21 04:40 MCH 28.7 pg (27.0-31.0) 08/30/21 04:40 MCHC 30.3 g/dL (32.0-36.0) L 08/30/21 04:40 RDW 18.4 % (12.0-15.0) H 08/30/21 04:40 Plt Count 336 10^3/uL (130-450) 08/30/21 04:40 MPV 10.2 fL (7.4-11.4) 08/30/21 04:40 Neut # (Auto) 9.1 10^3/uL (1.5-6.6) H 08/30/21 04:40 Lymph # (Auto) 0.9 10^3/uL (1.5-3.5) L 08/30/21 04:40 Gulf # (Auto) 1.5 10^3/uL (0.0-1.0) H 08/30/21 04:40 Eos # (Auto) 0.1 10^3/uL (0.0-0.7) 08/30/21 04:40 Baso # (Auto) 0.0 10^3/uL (0.0-0.1) 08/30/21 04:40 Absolute Nucleated RBC 0.00 x10^3/uL 08/30/21 04:40 Total Counted 100 08/29/21 05:45 Band Neuts % (Manual) 1 % (0-10) 08/29/21 05:45 Abnorm Lymph % (Manual) 0 % 08/29/21 05:45 Metamyelocytes % 1 % (-0) H 08/27/21 04:45 Myelocytes % 1 % (-0) H 08/27/21 04:45 Nucleated RBC % 0.0 /100WBC 08/30/21 04:40 Neutrophils # (Manual) 9.7 10^3/uL (1.5-6.6) H 08/29/21 05:45 Lymphocytes # (Manual) 1.9 10^3/uL (1.5-3.5) 08/29/21 05:45 Monocytes # (Manual) 1.7 10^3/uL (0.0-1.0) H 08/29/21 05:45 Eosinophils # (Manual) 0.0 10^3/uL (0-0.7) 08/29/21 05:45 Basophils # (Manual) 0.0 10^3/uL (0-0.1) 08/29/21 05:45 Nucleated RBCs 1 % 08/27/21 04:45 Differential Comment MANUAL DIFFERENTIAL 08/29/21 05:45 WBC Morphology NORMAL APPEARANCE (NORMAL) 08/25/21 04:50 Platelet Estimate NORMAL (130-450,000) (NORMAL) 08/29/21 05:45 Platelet Morphology NORMAL APPEARANCE (NORMAL) 08/26/21 04:40 RBC Morph Micro Appear 1+ ANISOCYTOSIS (NORMAL) 1+ HYPOCHROMASIA (NORMAL) 1+ OVALOCYTES (NORMAL) 08/29/21 05:45 RBC Morph Micro Appear 1+ ANISOCYTOSIS (NORMAL) 1+ HYPOCHROMASIA (NORMAL) 1+ OVALOCYTES (NORMAL) 08/29/21 05:45 RBC Morph Micro Appear 1+ ANISOCYTOSIS (NORMAL) 1+ HYPOCHROMASIA (NORMAL) 1+ OVALOCYTES (NORMAL) 08/29/21 05:45 PT 15.3 secs (9.9-12.6) H 08/19/21 13:44 INR 1.4 (0.8-1.2) H 08/19/21 13:44 D-Dimer 527.1 ng/mL (200.0-255.0) H 08/22/21 04:45 Bld Gas Analysis Time 0508/29/21 05:19 Sample Site RIGHT RADIAL 08/29/21 05:19 ABG pH 7.39 (7.35-7.45) 08/29/21 05:19 ABG pCO2 52 mmHg (34-45) H 08/29/21 05:19 ABG pO2 77 mmHg (80-100) L 08/29/21 05:19 ABG HCO3 30.5 mmol/L (22.0-26.0) H 08/29/21 05:19 ABG Total CO2 32.1 MMOL/L (21.0-29.0) H 08/29/21 05:19 ABG O2 Saturation 94 % (94-98) 08/29/21 05:19 ABG Base Excess 4.7 mmol/L (-2.0-3.0) H 08/29/21 05:19 Endy Test POSITIVE 08/29/21 05:19 VBG pH 7.385 (7.31-7.41) 08/30/21 04:46 Ionized Calcium 0.98 mmol/L (1.15-1.33) L 08/30/21 04:46 Respiration Rate 10 b/min 08/29/21 05:19 O2 Delivery Device BiPAP 08/29/21 05:19 Vent Mode ASSIST/CONTROL 08/25/21 13:17 FiO2 50.00 08/29/21 05:19 Tidal Volume 500 mL 08/25/21 13:17 PEEP 7 cmH2O 08/25/21 13:17 EPAP 8 cmH2O 08/29/21 05:19 IPAP 16 cmH2O 08/29/21 05:19 Sodium 145 mmol/L (135-145) 08/30/21 04:40 Potassium 4.0 mmol/L (3.5-5.0) 08/30/21 04:40 Chloride 105 mmol/L (101-111) 08/30/21 04:40 Carbon Dioxide 30 mmol/L (21-32) 08/30/21 04:40 Anion Gap 10.0 (6-13) 08/30/21 04:40 BUN 53 mg/dL (6-20) H 08/30/21 04:40 Creatinine 1.6 mg/dL (0.6-1.2) H 08/30/21 04:40 Estimated GFR (MDRD) 42 (>89) L 08/30/21 04:40 Glucose 151 mg/dL (70-100) H 08/30/21 04:40 POC Whole Bld Glucose 227 mg/dL (70 - 100) H 08/30/21 11:49 Lactic Acid 1.3 mmol/L (0.5-2.2) 08/19/21 10:05 Calcium 7.4 mg/dL (8.5-10.3) L 08/30/21 04:40 Ionized Calcium YES 08/26/21 04:40 Phosphorus 5.9 mg/dL (2.5-4.6) H 08/30/21 04:46 Magnesium 3.0 mg/dL (1.7-2.8) H 08/30/21 04:40 Total Bilirubin 0.6 mg/dL (0.2-1.0) 08/27/21 04:45 Direct Bilirubin 0.1 mg/dL (0.1-0.5) 08/24/21 04:20 AST 29 IU/L (10-42) 08/27/21 04:45 ALT 24 IU/L (10-60) 08/27/21 04:45 Alkaline Phosphatase 61 IU/L (42-121) 08/27/21 04:45 Troponin I High Sens 11.4 ng/L (2.3-19.7) 08/19/21 10:05 C-Reactive Protein 6.6 mg/dL (0-1.0) H 08/21/21 04:53 B-Natriuretic Peptide 54 pg/mL (5-100) 08/19/21 10:05 Total Protein 6.4 g/dL (6.7-8.2) L 08/27/21 04:45 Albumin 2.6 g/dL (3.2-5.5) L 08/30/21 04:40 Globulin 3.9 g/dL (2.1-4.2) 08/27/21 04:45 Albumin/Globulin Ratio 0.6 (1.0-2.2) L 08/27/21 04:45 Prealbumin 26 mg/dL (18-45) 08/27/21 04:45 25-OH Vitamin D Total 10 ng/mL (30-100) L 08/20/21 13:55 TSH 0.13 uIU/mL (0.34-5.60) L 08/21/21 04:00 Free T4 1.27 ng/dL (0.58-1.64) 08/21/21 04:00 Nasal Adenovirus (PCR) NOT DETECTED 08/19/21 10:15 Nasal B. parapertussis DNA (PCR) NOT DETECTED 08/19/21 10:15 Nasal Coronavir 229E PCR NOT DETECTED 08/19/21 10:15 Nasal Coronavir HKU1 PCR NOT DETECTED 08/19/21 10:15 Nasal Coronavir NL63 PCR NOT DETECTED 08/19/21 10:15 Nasal Coronavir OC43 PCR NOT DETECTED 08/19/21 10:15 Nasal Enterovir/Rhinovir PCR DETECTED A 08/19/21 10:15 Nasal Influenza B PCR NOT DETECTED 08/19/21 10:15 Nasal Influenza A PCR NOT DETECTED 08/19/21 10:15 Nasal Parainfluen 1 PCR NOT DETECTED 08/19/21 10:15 Nasal Parainfluen 2 PCR NOT DETECTED 08/19/21 10:15 Nasal Parainfluen 3 PCR NOT DETECTED 08/19/21 10:15 Nasal Parainfluen 4 PCR NOT DETECTED 08/19/21 10:15 Nasal RSV (PCR) NOT DETECTED 08/19/21 10:15 Nasal Screen MRSA (PCR) NEGATIVE (NEGATIVE) 08/19/21 13:30 Nasal B.pertussis DNA PCR NOT DETECTED 08/19/21 10:15 Nasal C.pneumoniae (PCR) NOT DETECTED 08/19/21 10:15 Richy Human Metapneumo PCR NOT DETECTED 08/19/21 10:15 Nasal M.pneumoniae (PCR) NOT DETECTED 08/19/21 10:15 Nasal SARS-CoV-2 (PCR) DETECTED A 08/19/21 10:15 Ref Lab Test Result Cancelled 08/19/21 10:05 - Procedures Procedures: Procedures ASSISTANCE WITH RESPIRATORY VENTILATION, <24 HRS, CPAP (12/05/15) CATARAC PHACOEMULS/ASPIR (03/29/14) ENDOSC POLYPECTOMY OF LG INTEST (05/12/13) ESOPHAGOGASTRODUODENOSCOPY [EGD] W/CLOSED BIOPSY (05/12/13) INSERT LENS AT CATAR EXT (03/29/14) INSERTION OF INFUSION DEV INTO L FEMOR VEIN, PERC APPROACH (04/22/19) TRANSFUSE NONAUT FROZEN PLASMA IN PERIPH VEIN, PERC (04/22/19) TRANSFUSE NONAUT RED BLOOD CELLS IN CENTRAL VEIN, PERC (04/22/19)
[2021-08-30] MEDS ORDERED: INSULIN ASPART 300 UNIT/3 ML PEN SUBQ SCH (17:17)
[2021-08-30] MEDS ORDERED: INSULIN REGULAR HUMAN 300 UNIT/3 ML VIAL SUBQ SCH (18:00)
[2021-08-30] MEDS: ATORVASTATIN 40 MG TABLET PO SCH (20:59)
[2021-08-30 23:08] LABS: CALCIUM, IONIZED 0.85 mmol/L (1.15-1.33); VBG PH 7.407 (7.31-7.41)
[2021-08-30] MEDS ORDERED: CALCIUM CHLORIDE 2,000 MG in SODIUM CHLORIDE 0.9% 100ML 100 ML IV ONE (23:17)
[2021-08-30] MEDS ORDERED: CALCIUM GLUCONATE 2,000 MG in SODIUM CHLORIDE 0.9% 100ML 100 ML IV ONE (23:33)
[2021-08-30] MEDS: diltiaZEM 30 MG TABLET PO SCH (23:55)
[2021-08-31] MEDS: ZINC OXIDE 20% OINT 30 GM TUBE TOP PRN ×3 (00:02→20:10)
[2021-08-31] MEDS: fentaNYL 100 MCG/2 ML VIAL IVP PRN ×3 (00:27→13:17)
[2021-08-31] MEDS: ALBUTEROL NEB 2.5 MG/3 ML INH PRN ×2 (05:50→20:28)
[2021-08-31] MEDS: BUDESONIDE 0.5 MG/2 ML NEB INH SCH ×2 (05:50→20:28)
[2021-08-31] MEDS: SODIUM CHLORIDE FLUSH 0.9% 10 ML SYRINGE IVP SCH ×3 (06:11→17:18)
[2021-08-31] MEDS: FUROSEMIDE 40 MG/4 ML VIAL IVP SCH (06:12)
[2021-08-31] MEDS: PANTOPRAZOLE 40 MG TABLET PO SCH (06:12)
[2021-08-31] MEDS: diltiaZEM 30 MG TABLET PO SCH ×4 (06:14→23:34)
[2021-08-31 06:25] LABS: BASOPHILS % (AUTO) 0.2 %; EOSINOPHILS # (AUTO) 0.3 10^3/uL (0.0-0.7); EOSINOPHILS % (AUTO) 2.8 %; HCT - HEMATOCRIT 30.8 % (42.0-52.0); HGB - HEMOGLOBIN 9.2 g/dL (14.0-18.0); LYMPHOCYTES # (AUTO) 0.9 10^3/uL (1.5-3.5); LYMPHOCYTES % (AUTO) 9.5 %; MEAN CORPUSCULAR HEMOGLOBIN 28.4 pg (27.0-31.0); MEAN CORPUSCULAR HGB CONC 29.9 g/dL (32.0-36.0); MEAN CORPUSCULAR VOLUME 95.1 fL (80.0-94.0); MEAN PLATELET VOLUME 10.3 fL (7.4-11.4); MONOCYTES # (AUTO) 1.5 10^3/uL (0.0-1.0); MONOCYTES % (AUTO) 14.9 %; NEUTROPHILS # (AUTO) 7.1 10^3/uL (1.5-6.6); NEUTROPHILS % (AUTO) 72.3 %; PLT - PLATELET COUNT 312 10^3/uL (130-450); RED BLOOD COUNT 3.24 10^6/uL (4.70-6.10); RED CELL DISTRIBUTION WIDTH 18.3 % (12.0-15.0); WHITE BLOOD COUNT 9.8 x10^3/uL (4.8-10.8)
[2021-08-31 06:31] LABS: CALCIUM 7.5 mg/dL (8.5-10.3); CREATININE 1.4 mg/dL (0.6-1.2); PHOSPHORUS 3.3 mg/dL (2.5-4.6); POTASSIUM 3.4 mmol/L (3.5-5.0)
[2021-08-31 06:47] LABS: CALCIUM, IONIZED 1.04 mmol/L (1.15-1.33); VBG PH 7.383 (7.31-7.41)
[2021-08-31 06:54] LABS: DIFFERENTIAL COMMENT MANUAL=AUTO DIFF; PLATELET ESTIMATE, MANUAL NORMAL (130-450,000) (NORMAL); PLATELET MORPHOLOGY NORMAL APPEARANCE (NORMAL); RBC MORPHOLOGY (MULTIPLE) 1+ HYPOCHROMASIA (NORMAL)
[2021-08-31] MEDS: DOCUSATE SODIUM 250 MG CAPSULE PO SCH (07:37)
[2021-08-31] MEDS: SENNA 8.6 MG TABLET PO SCH (07:40)
[2021-08-31] MEDS: polyethylene glycoL 3350 17 GM PACKET PO SCH (07:40)
[2021-08-31] MEDS: INSULIN ASPART 300 UNIT/3 ML PEN SUBQ SCH ×5 (07:59→20:50)
[2021-08-31] MEDS: ENOXAPARIN 40 MG/0.4 ML SYRINGE SUBQ SCH (07:59)
[2021-08-31] MEDS: CHLORHEXIDINE GLUCONATE 15 ML UDC PO SCH (08:00)
[2021-08-31] MEDS ORDERED: DEXTROSE 5% 1,000 ML IV SCH (08:00)
[2021-08-31] MEDS: predniSONE 20 MG TABLET PO SCH (08:01)
[2021-08-31] MEDS: CALCIUM CARBONATE CHEW 500 MG TABLET PO SCH ×4 (08:01→23:34)
[2021-08-31] MEDS: ASPIRIN EC 325 MG TABLET PO SCH (08:01)
[2021-08-31] MEDS: CHOLECALCIFEROL 25 MCG TABLET PO SCH (08:02)
[2021-08-31] MEDS: POTASSIUM CHLORIDE 20 MEQ TABLET PO SCH ×2 (08:02→12:24)
--- NOTE | 2021-08-31 09:08 | PROVIDER PROGRESS NOTE ---
Assessment/Plan - Problem List (1) Acute and chronic respiratory failure with hypoxia Assessment/Plan: This was secondary to COVID-19 pneumonia and Hx of COPD and possibly from obesity hypoventilation. He was extubated and is on BIPAP alternating with n.c. and remains in the ICU. He got 10 days of iv Decadron and he is on po Prednisone He is also greater than 10 L positive in fluid balance since hospitalization. Now getting iv Lasix. I spoke to his Mikala at bedside today with update on his clinical condition. (2) Pneumonia due to COVID-19 virus Impression: This is the cause of his respiratory failure. He has now completed Remdesivir, Decadron and a course of iV antibiotics. When he had severe oozing of blood from his IJ line several days ago, his L ovenox 150 twice daily empiric was changed to a low 40 mg daily prophylactic dose. (3) Severe COPD A PFT report from several years ago showed he has severe COPD with FEV1/FVC ratio of 30% of predicted. I mention this to his by phone yesterday, she said he was a heavy smoker but has now quit about 7 years ago. He is not on home O2 We will continue him on Prednisone orally, now that he has finished Decadron, a 10 day course. We will plan to taper the Prednisone very slowly, over many weeks. We started him on inhaled Budesonide and Singulair and continue the inhaled albuterol nebulizer. (4) Hypernatremia This is likely related to getting IV diuretics and IV fluids containing saline. Will stop saline and stop Lasix. We will give slow free water using D5W x1 L today. Recheck Na today and BMP daily (5) Skin tear on buttocks Pain is his biggest complaint since being extubated, because he is no longer sedated (was extubated yesterday). We ordered topical care, turn and reposition and Fentanyl doses and Lidocaine patch for pain management. PT will be ordered to start today to increase activity and more out of bed to chair and off of his skin tears. (6) Acute kidney injury superimposed on CKD Impression: His renal function continues to improve daily. He was getting iv fluids plus ng liquid feeds. Ng feeds stopped when he was extubated. We will continue to monitor his renal function and urine output. (7) Insulin dependent diabetes mellitus Impression: His blood glucose was exacerbated by the steroids. Ng feeds stopped when he was extubated. We started a diabetic diet, and on ss Insulin. (8) Morbid Obesity (BMI 50-59) As per Hx. (9) Sleep apnea on CPAP The was able to give detailed history of him being on a CPAP machine at home, but the machine was recalled 3 months ago, and the company has not sent him a new one yet despite many of her phone calls. This event was reported to RT. RT and Hospitalist are working on obtaining a proper CPAP, or most likely BiPAP machine for him because of this diagnosis. The was updated about this at bedside today (10) Iron deficiency anemia Impression: Hemoglobin is stable. We will resume home oral iron when appropriate. (11) Gram-positive bacteremia Impression: This is felt to be contaminant. Repeat cultures have been negative to date and the other set was negative. Antibiotics have been discontinued. (12) Hypotension Impression: Resolved, Levophed was turned off (13) Accelerated junctional rhythm Resolved We will continue to monitor his rhythm on telemetry. Remain in the ICU (14) Hyperkalemia Impression: Resolved - Current Meds Current Meds: Current Medications Generic Name Dose Route Start Last Admin Trade Name Freq PRN Reason Stop Dose Admin Albuterol 2.5 mg 08/19/21 11:45 08/31/21 05:50 Albuterol Neb 2.5 Mg/3 Ml INH 2.5 mg Q4HR PRN Administration Wheezing Aspirin 325 mg 08/29/21 09:00 08/31/21 08:01 Aspirin Ec 325 Mg Tablet PO 325 mg DAILY DINESH Administration Atorvastatin Calcium 40 mg 08/19/21 21:00 08/30/21 20:59 Atorvastatin 40 Mg Tablet PO 40 mg QPM DINESH Administration Budesonide 0.5 mg 08/28/21 19:00 08/31/21 05:50 Budesonide 0.5 Mg/2 Ml Neb INH 0.5 mg RTBID DINESH Administration Calcium Carbonate/Glycine 1,250 mg 08/31/21 08:00 08/31/21 08:01 Calcium Carbonate Chew 500 Mg Tablet PO 08/31/21 12:01 1,250 mg Q4H DINESH Administration Protocol Chlorhexidine Gluconate 15 ml 08/19/21 23:00 08/31/21 08:00 Chlorhexidine Gluconate 15 Ml Udc PO 15 ml BID DINESH Administration Cholecalciferol 50 mcg 08/21/21 09:00 08/31/21 08:02 Cholecalciferol 25 Mcg Tablet PO 50 mcg DAILY DINESH Administration Diltiazem HCl 30 mg 08/30/21 23:00 08/31/21 06:14 Diltiazem 30 Mg Tablet PO 30 mg Q6HR DINESH Administration Docusate Sodium 250 - 500 mg 08/26/21 09:00 08/31/21 07:37 Docusate Sodium 250 Mg Capsule PO Not Given DAILY DINESH Enoxaparin Sodium 40 mg 08/27/21 09:00 08/31/21 07:59 Enoxaparin 40 Mg/0.4 Ml Syringe SUBQ 40 mg DAILY DINESH Administration Fentanyl 75 mcg 08/25/21 15:42 08/31/21 06:12 Fentanyl 100 Mcg/2 Ml Vial IVP 75 mcg Q2HR PRN Administration PAIN Dextrose 1,000 mls @ 83.333 mls/hr 08/31/21 08:00 08/31/21 08:20 D5w IV 08/31/21 19:59 83.333 mls/hr .Q12H DINESH Administration Insulin Aspart 1 - 9 unit 08/30/21 21:00 08/31/21 07:59 Insulin Aspart 300 Unit/3 Ml Pen SUBQ 3 unit 0800,1200,1700,2100 DINESH Administration Protocol Multi-Ingredient Ointment 1 applic 08/22/21 21:41 08/31/21 00:02 Zinc Oxide 20% Oint 30 Gm Tube TOP 1 applic PRN PRN Administration Skin Care Pantoprazole Sodium 40 mg 08/31/21 07:00 08/31/21 06:12 Pantoprazole 40 Mg Tablet PO 40 mg QDAC DINESH Administration Polyethylene Glycol 17 gm 08/22/21 09:00 08/31/21 07:40 Polyethylene Glycol 3350 17 Gm Packet PO Not Given DAILY DINESH Potassium Chloride 20 meq 08/31/21 08:00 08/31/21 08:02 Potassium Chloride 20 Meq Tablet PO 08/31/21 10:01 20 meq Q2H DINESH Administration Protocol Prednisone 20 mg 08/29/21 08:00 08/31/21 08:01 Prednisone 20 Mg Tablet PO 20 mg DAILYWM DINESH Administration Scopolamine HBr 1 patch 08/28/21 18:00 08/28/21 18:15 Scopolamine Patch TOP 1 patch Q3D DINESH Administration Senna 8.6 - 17.2 mg 08/26/21 09:00 08/31/21 07:40 Senna 8.6 Mg Tablet PO Not Given DAILY DINESH Sodium Chloride 10 ml 08/19/21 17:00 08/31/21 08:19 Sodium Chloride Flush 0.9% 10 Ml Syringe IVP 10 ml 0100,0900,1700 DINESH Administration Sodium Chloride 20 ml 08/22/21 04:43 08/30/21 20:59 Sodium Chloride Flush 0.9% 10 Ml Syringe IVP 20 ml PRN PRN Administration After Blood Draw - Lab Result Fish Bone Diagrams: 08/31/21 05:35 08/31/21 13:09 - Additional Planning My Orders: My Active Orders 08/30/21 11:01 Min Oil/Dimeth/Coconut Oil Crm [Cavilon] 1 applic TOP PRN PRN 08/30/21 21:00 Insulin Aspart [NovoLOG] 1 - 9 unit SUBQ 0800,1200,1700,2100 08/31/21 07:51 Miscellaenous Nursing Order [RC] DAILY 08/31/21 08:00 Calcium Carbonate [Tums] 1,250 mg PO Q4H Dextrose 5% [D5w] 1,000 ml IV 83.333 mls/hr Potassium Chloride [K-Dur] 20 meq PO Q2H 08/31/21 13:00 SODIUM [CHEM] Timed Subjective - Subjective Patient Reports: Feeling Better, Pain (Pain in lower back and buttocks ant tears) Objective Vital Signs: Vital Signs - 24 hr 08/30/21 08/30/21 08/30/21 10:00 11:00 12:00 Temperature Heart Rate Heart Rate [ 102 H 101 H 120 H Monitoring electrodes] Respiratory 15 19 23 Rate Blood Pressure Blood Pressure 107/91 H 113/59 L 98/60 [Left Radial artery] Blood Pressure [Right Radial artery] O2 Saturation 91 L 90 L 95 08/30/21 08/30/21 08/30/21 13:00 14:00 15:00 Temperature 36.9 C 37.3 C Heart Rate Heart Rate [ 125 H 118 H 119 H Monitoring electrodes] Respiratory 21 19 23 Rate Blood Pressure Blood Pressure 106/47 L 106/53 L 102/59 L [Left Radial artery] Blood Pressure [Right Radial artery] O2 Saturation 90 L 94 93 0108/30/21 08/30/21 16:00 17:00 18:00 Temperature Heart Rate Heart Rate [ 132 H 117 H 118 H Monitoring electrodes] Respiratory 24 22 24 Rate Blood Pressure Blood Pressure 126/74 132/71 H 116/53 L [Left Radial artery] Blood Pressure [Right Radial artery] O2 Saturation 93 97 96 08/30/21 08/30/21 08/30/21 19:00 19:15 20:00 Temperature Heart Rate 116 H 80 Heart Rate [ 115 H Monitoring electrodes] Respiratory 23 22 Rate Blood Pressure Blood Pressure 130/63 [Left Radial artery] Blood Pressure [Right Radial artery] O2 Saturation 94 08/30/21 08/30/21 08/30/21 20:52 21:00 22:00 Temperature 36.3 C L Heart Rate Heart Rate [ 122 H 122 H 119 H Monitoring electrodes] Respiratory 23 23 23 Rate Blood Pressure Blood Pressure 114/48 L 101/50 L 106/59 L [Left Radial artery] Blood Pressure [Right Radial artery] O2 Saturation 92 93 96 08/30/21 08/30/21 08/30/21 23:00 23:35 23:55 Temperature Heart Rate 108 H Heart Rate [ 122 H Monitoring electrodes] Respiratory 25 H Rate Blood Pressure 116/63 Blood Pressure 134/69 H [Left Radial artery] Blood Pressure [Right Radial artery] O2 Saturation 95 08/31/21 08/31/21 08/31/21 00:00 01:00 02:00 Temperature 37.3 C Heart Rate Heart Rate [ 120 H 118 H 117 H Monitoring electrodes] Respiratory 21 20 22 Rate Blood Pressure Blood Pressure 136/64 H 103/57 L 123/65 [Left Radial artery] Blood Pressure [Right Radial artery] O2 Saturation 95 96 94 08/31/21 08/31/21 08/31/21 02:30 03:00 04:00 Temperature 37.3 C Heart Rate 118 H Heart Rate [ 112 H 116 H Monitoring electrodes] Respiratory 21 21 Rate Blood Pressure Blood Pressure 137/74 H 113/59 L [Left Radial artery] Blood Pressure [Right Radial artery] O2 Saturation 96 92 08/31/21 08/31/21 08/31/21 05:00 05:50 06:00 Temperature Heart Rate 122 H Heart Rate [ 117 H 121 H Monitoring electrodes] Respiratory 23 20 26 H Rate Blood Pressure Blood Pressure 122/68 [Left Radial artery] Blood Pressure 130/52 L [Right Radial artery] O2 Saturation 96 92 08/31/21 08/31/21 08/31/21 06:14 07:00 08:00 Temperature 36.9 C Heart Rate Heart Rate [ 128 H 127 H Monitoring electrodes] Respiratory 22 24 Rate Blood Pressure 130/52 L Blood Pressure [Left Radial artery] Blood Pressure 119/64 125/64 [Right Radial artery] O2 Saturation 90 L 93 Oxygen O2 Source Nasal cannula I&O (Last 24 Hrs): Intake and Output Totals x24h 08/29/21 08/30/21 08/31/21 23:59 23:59 23:59 Intake Total 948.088 7656.925 550 Output Total 3739 3415 2055 Balance -3423.283 -1612.075 -1505 General: Alert, Oriented x3 HEENT: Mucous membr. moist/pink, Other (wearing O2 by n.c.) Neck: Supple Neuro: Alert, Non Focal Cardiovascular: Regular rate Respiratory: No respiratory distress (on O2 n.c.) Abdomen: Soft, Other (Obese with pannus) Extremities: No edema, No tenderness/swelling - Results Results: Laboratory Results WBC 9.8 x10^3/uL (4.8-10.8) 08/31/21 05:35 RBC 3.24 10^6/uL (4.70-6.10) L 08/31/21 05:35 Hgb 9.2 g/dL (14.0-18.0) L 08/31/21 05:35 Hct 30.8 % (42.0-52.0) L 08/31/21 05:35 MCV 95.1 fL (80.0-94.0) H 08/31/21 05:35 MCH 28.4 pg (27.0-31.0) 08/31/21 05:35 MCHC 29.9 g/dL (32.0-36.0) L 08/31/21 05:35 RDW 18.3 % (12.0-15.0) H 08/31/21 05:35 Plt Count 312 10^3/uL (130-450) 08/31/21 05:35 MPV 10.3 fL (7.4-11.4) 08/31/21 05:35 Neut # (Auto) 7.1 10^3/uL (1.5-6.6) H 08/31/21 05:35 Lymph # (Auto) 0.9 10^3/uL (1.5-3.5) L 08/31/21 05:35 [place] # (Auto) 1.5 10^3/uL (0.0-1.0) H 08/31/21 05:35 Eos # (Auto) 0.3 10^3/uL (0.0-0.7) 08/31/21 05:35 Baso # (Auto) 0.0 10^3/uL (0.0-0.1) 08/31/21 05:35 Absolute Nucleated RBC 0.00 x10^3/uL 08/31/21 05:35 Total Counted 100 08/29/21 05:45 Band Neuts % (Manual) Not Reportable 08/31/21 05:35 Abnorm Lymph % (Manual) Not Reportable 08/31/21 05:35 Metamyelocytes % 1 % (-0) H 08/27/21 04:45 Myelocytes % 1 % (-0) H 08/27/21 04:45 Nucleated RBC % 0.0 /100WBC 08/31/21 05:35 Neutrophils # (Manual) Not Reportable 08/31/21 05:35 Lymphocytes # (Manual) Not Reportable 08/31/21 05:35 Monocytes # (Manual) Not Reportable 08/31/21 05:35 Eosinophils # (Manual) Not Reportable 08/31/21 05:35 Basophils # (Manual) Not Reportable 08/31/21 05:35 Nucleated RBCs 1 % 08/27/21 04:45 Differential Comment MANUAL=AUTO DIFF 08/31/21 05:35 WBC Morphology NORMAL APPEARANCE (NORMAL) 08/25/21 04:50 Platelet Estimate NORMAL (130-450,000) (NORMAL) 08/31/21 05:35 Platelet Morphology NORMAL APPEARANCE (NORMAL) 08/31/21 05:35 RBC Morph Micro Appear 1+ HYPOCHROMASIA (NORMAL) 08/31/21 05:35 PT 15.3 secs (9.9-12.6) H 08/19/21 13:44 INR 1.4 (0.8-1.2) H 08/19/21 13:44 D-Dimer 527.1 ng/mL (200.0-255.0) H 08/22/21 04:45 Bld Gas Analysis Time 0523 08/29/21 05:19 Sample Site RIGHT RADIAL 08/29/21 05:19 ABG pH 7.39 (7.35-7.45) 08/29/21 05:19 ABG pCO2 52 mmHg (34-45) H 08/29/21 05:19 ABG pO2 77 mmHg (80-100) L 08/29/21 05:19 ABG HCO3 30.5 mmol/L (22.0-26.0) H 08/29/21 05:19 ABG Total CO2 32.1 MMOL/L (21.0-29.0) H 08/29/21 05:19 ABG O2 Saturation 94 % (94-98) 08/29/21 05:19 ABG Base Excess 4.7 mmol/L (-2.0-3.0) H 08/29/21 05:19 Endy Test POSITIVE 08/29/21 05:19 VBG pH 7.383 (7.31-7.41) 08/31/21 05:20 Ionized Calcium 1.04 mmol/L (1.15-1.33) L 08/31/21 05:20 Respiration Rate 10 b/min 08/29/21 05:19 O2 Delivery Device BiPAP 08/29/21 05:19 Vent Mode ASSIST/CONTROL 08/25/21 13:17 FiO2 50.00 08/29/21 05:19 Tidal Volume 500 mL 08/25/21 13:17 PEEP 7 cmH2O 08/25/21 13:17 EPAP 8 cmH2O 08/29/21 05:19 IPAP 16 cmH2O 08/29/21 05:19 Sodium 151 mmol/L (135-145) H 08/31/21 05:20 Potassium 3.4 mmol/L (3.5-5.0) L 08/31/21 05:20 Chloride 108 mmol/L (101-111) 08/31/21 05:20 Carbon Dioxide 31 mmol/L (21-32) 08/31/21 05:20 Anion Gap 12.0 (6-13) 08/31/21 05:20 BUN 40 mg/dL (6-20) H 08/31/21 05:20 Creatinine 1.4 mg/dL (0.6-1.2) H 08/31/21 05:20 Estimated GFR (MDRD) 49 (>89) L 08/31/21 05:20 Glucose 164 mg/dL (70-100) H 08/31/21 05:20 POC Whole Bld Glucose 197 mg/dL (70 - 100) H 08/31/21 07:33 Lactic Acid 1.3 mmol/L (0.5-2.2) 08/19/21 10:05 Calcium 7.5 mg/dL (8.5-10.3) L 08/31/21 05:20 Ionized Calcium YES 08/26/21 04:40 Phosphorus 3.3 mg/dL (2.5-4.6) 08/31/21 05:20 Magnesium 3.0 mg/dL (1.7-2.8) H 08/31/21 05:20 Total Bilirubin 0.6 mg/dL (0.2-1.0) 08/27/21 04:45 Direct Bilirubin 0.1 mg/dL (0.1-0.5) 08/24/21 04:20 AST 29 IU/L (10-42) 08/27/21 04:45 ALT 24 IU/L (10-60) 08/27/21 04:45 Alkaline Phosphatase 61 IU/L (42-121) 08/27/21 04:45 Troponin I High Sens 11.4 ng/L (2.3-19.7) 08/19/21 10:05 C-Reactive Protein 6.6 mg/dL (0-1.0) H 08/21/21 04:53 B-Natriuretic Peptide 54 pg/mL (5-100) 08/19/21 10:05 Total Protein 6.4 g/dL (6.7-8.2) L 08/27/21 04:45 Albumin 2.6 g/dL (3.2-5.5) L 08/30/21 04:40 Globulin 3.9 g/dL (2.1-4.2) 08/27/21 04:45 Albumin/Globulin Ratio 0.6 (1.0-2.2) L 08/27/21 04:45 Prealbumin 26 mg/dL (18-45) 08/27/21 04:45 25-OH Vitamin D Total 10 ng/mL (30-100) L 08/20/21 13:55 TSH 0.13 uIU/mL (0.34-5.60) L 08/21/21 04:00 Free T4 1.27 ng/dL (0.58-1.64) 08/21/21 04:00 Nasal Adenovirus (PCR) NOT DETECTED 08/19/21 10:15 Nasal B. parapertussis DNA (PCR) NOT DETECTED 08/19/21 10:15 Nasal Coronavir 229E PCR NOT DETECTED 08/19/21 10:15 Nasal Coronavir HKU1 PCR NOT DETECTED 08/19/21 10:15 Nasal Coronavir NL63 PCR NOT DETECTED 08/19/21 10:15 Nasal Coronavir OC43 PCR NOT DETECTED 08/19/21 10:15 Nasal Enterovir/Rhinovir PCR DETECTED A 08/19/21 10:15 Nasal Influenza B PCR NOT DETECTED 08/19/21 10:15 Nasal Influenza A PCR NOT DETECTED 08/19/21 10:15 Nasal Parainfluen 1 PCR NOT DETECTED 08/19/21 10:15 Nasal Parainfluen 2 PCR NOT DETECTED 08/19/21 10:15 Nasal Parainfluen 3 PCR NOT DETECTED 08/19/21 10:15 Nasal Parainfluen 4 PCR NOT DETECTED 08/19/21 10:15 Nasal RSV (PCR) NOT DETECTED 08/19/21 10:15 Nasal Screen MRSA (PCR) NEGATIVE (NEGATIVE) 08/19/21 13:30 Nasal B.pertussis DNA PCR NOT DETECTED 08/19/21 10:15 Nasal C.pneumoniae (PCR) NOT DETECTED 08/19/21 10:15 Richy Human Metapneumo PCR NOT DETECTED 08/19/21 10:15 Nasal M.pneumoniae (PCR) NOT DETECTED 08/19/21 10:15 Nasal SARS-CoV-2 (PCR) DETECTED A 08/19/21 10:15 Ref Lab Test Result Cancelled 08/19/21 10:05 - Procedures Procedures: Procedures ASSISTANCE WITH RESPIRATORY VENTILATION, <24 HRS, CPAP (12/05/15) CATARAC PHACOEMULS/ASPIR (03/29/14) ENDOSC POLYPECTOMY OF LG INTEST (05/12/13) ESOPHAGOGASTRODUODENOSCOPY [EGD] W/CLOSED BIOPSY (05/12/13) INSERT LENS AT CATAR EXT (03/29/14) INSERTION OF INFUSION DEV INTO L FEMOR VEIN, PERC APPROACH (04/22/19) TRANSFUSE NONAUT FROZEN PLASMA IN PERIPH VEIN, PERC (04/22/19) TRANSFUSE NONAUT RED BLOOD CELLS IN CENTRAL VEIN, PERC (04/22/19)
[2021-08-31] MEDS: LIDOCAINE PATCH 5% TOP PRN (12:36)
[2021-08-31 16:34] LABS: VBG PH 7.424 (7.31-7.41)
[2021-08-31 16:35] LABS: CALCIUM, IONIZED 1.01 mmol/L (1.15-1.33)
[2021-08-31] MEDS: SCOPOLAMINE PATCH TOP SCH (17:19)
[2021-08-31] MEDS: traZODone 50 MG TABLET PO SCH (20:10)
[2021-08-31] MEDS: GABAPENTIN 100 MG CAPSULE PO SCH (20:10)
[2021-08-31] MEDS: ATORVASTATIN 40 MG TABLET PO SCH (20:10)
[2021-08-31] MEDS: SODIUM CHLORIDE FLUSH 0.9% 10 ML SYRINGE IVP PRN (20:30)
[2021-09-01] MEDS: SODIUM CHLORIDE FLUSH 0.9% 10 ML SYRINGE IVP SCH ×5 (03:43→23:44)
[2021-09-01 04:33] LABS: BASOPHILS % (AUTO) 0.2 %; EOSINOPHILS # (AUTO) 0.1 10^3/uL (0.0-0.7); EOSINOPHILS % (AUTO) 1.2 %; HCT - HEMATOCRIT 29.9 % (42.0-52.0); LYMPHOCYTES # (AUTO) 1.2 10^3/uL (1.5-3.5); LYMPHOCYTES % (AUTO) 12.5 %; MEAN CORPUSCULAR HEMOGLOBIN 29.2 pg (27.0-31.0); MEAN CORPUSCULAR HGB CONC 30.1 g/dL (32.0-36.0); MEAN CORPUSCULAR VOLUME 97.1 fL (80.0-94.0); MEAN PLATELET VOLUME 10.1 fL (7.4-11.4); MONOCYTES # (AUTO) 1.4 10^3/uL (0.0-1.0); MONOCYTES % (AUTO) 13.8 %; NEUTROPHILS # (AUTO) 7.1 10^3/uL (1.5-6.6); PLT - PLATELET COUNT 312 10^3/uL (130-450); RED BLOOD COUNT 3.08 10^6/uL (4.70-6.10); RED CELL DISTRIBUTION WIDTH 18.1 % (12.0-15.0); WHITE BLOOD COUNT 9.9 x10^3/uL (4.8-10.8)
[2021-09-01 04:39] LABS: CALCIUM, IONIZED 1.07 mmol/L (1.15-1.33); VBG PH 7.401 (7.31-7.41)
[2021-09-01 04:40] LABS: CALCIUM 7.7 mg/dL (8.5-10.3); CREATININE 1.3 mg/dL (0.6-1.2); MAGNESIUM 2.8 mg/dL (1.7-2.8); PHOSPHORUS 2.6 mg/dL (2.5-4.6); POTASSIUM 3.4 mmol/L (3.5-5.0)
[2021-09-01] MEDS: fentaNYL 100 MCG/2 ML VIAL IVP PRN (05:33)
[2021-09-01] MEDS: ZINC OXIDE 20% OINT 30 GM TUBE TOP PRN (05:33)
[2021-09-01] MEDS: diltiaZEM 30 MG TABLET PO SCH ×4 (05:34→23:43)
[2021-09-01] MEDS: PANTOPRAZOLE 40 MG TABLET PO SCH (05:35)
[2021-09-01] MEDS: BUDESONIDE 0.5 MG/2 ML NEB INH SCH ×2 (05:48→18:50)
[2021-09-01] MEDS ORDERED: POTASSIUM CHLORIDE 20 MEQ TABLET PO ONE (06:18)
[2021-09-01] MEDS ORDERED: DEXTROSE 5% 1,000 ML IV SCH (08:00)
[2021-09-01] MEDS: CALCIUM CARBONATE CHEW 500 MG TABLET PO SCH ×2 (08:10→17:59)
[2021-09-01] MEDS: CHOLECALCIFEROL 25 MCG TABLET PO SCH (08:12)
[2021-09-01] MEDS: ASPIRIN EC 325 MG TABLET PO SCH (08:12)
[2021-09-01] MEDS: DOCUSATE SODIUM 250 MG CAPSULE PO SCH (08:13)
[2021-09-01] MEDS: predniSONE 20 MG TABLET PO SCH (08:16)
[2021-09-01] MEDS: INSULIN ASPART 300 UNIT/3 ML PEN SUBQ SCH ×4 (08:29→20:45)
[2021-09-01] MEDS: ENOXAPARIN 40 MG/0.4 ML SYRINGE SUBQ SCH (08:33)
[2021-09-01] MEDS: INSULIN GLARGINE 300 UNIT/3 ML PEN SUBQ SCH (08:36)
[2021-09-01] MEDS: polyethylene glycoL 3350 17 GM PACKET PO SCH (08:39)
--- NOTE | 2021-09-01 09:11 | PROVIDER PROGRESS NOTE ---
Assessment/Plan - Problem List (1) Acute and chronic respiratory failure with hypoxia Assessment/Plan: This was secondary to COVID-19 pneumonia and Hx of COPD and possibly from obesity hypoventilation and OMERO. He was extubated and is on BIPAP at night alternating with n.c. and remains in the ICU. He got 10 days of iv Decadron and he is on po Prednisone. He is also greater than 10 L positive in fluid balance since hospitalization. Now getting iv Lasix. I spoke to his Mikala at bedside today with update on his clinical condition. Patient's home CPAP has been recalled by [employer]. I am ordering a non-invasive home ventilator to treat his chronic respiratory failure. BIPAP was considered and deemed ineffective. (2) Pneumonia due to COVID-19 virus Impression: This is the cause of his respiratory failure. He has now completed Remdesivir, Decadron and a course of iV antibiotics. When he had severe oozing of blood from his IJ line several days ago, his L ovenox 150 twice daily empiric was changed to a low 40 mg daily (prophylactic) dose. (3) Severe COPD A PFT report from several years ago showed he has severe COPD with FEV1/FVC ratio of 30% of predicted. His said he was a heavy smoker but has now quit about 7 years ago. He was not on home O2 before this admission. We will continue him on Prednisone 20 mg daily orally, now that he has finished a 10 day course of Decadron. We will plan to taper the Prednisone very slowly, over many weeks. We started him on inhaled Budesonide and Singulair and continue the inhaled albuterol nebulizer. (4) Hypernatremia This is likely related to getting IV diuretics and IV fluids containing saline. Will stop saline and stop Lasix. We will give slow free water using D5W x another L today. Recheck Na today and BMP daily (5) Skin tear on buttocks Pain is his biggest complaint since being extubated, because he is no longer sedated. We ordered topical care, turn and reposition and Fentanyl doses and Lidocaine patch for pain management. PT started working with huim to increase activity and more out of bed to chair and off of his skin tears. (6) Acute kidney injury superimposed on CKD Impression: His renal function continues to improve daily. He was getting iv fluids plus ng liquid feeds. Ng feeds were stopped when he was extubated. We will continue to monitor his renal function and urine output. He still has the Nunn because he has not been able to stand and bear weight to use a bedsdie commode. (7) Insulin dependent diabetes mellitus Impression: His blood glucose was exacerbated by the steroids. We started a diabetic diet, and on ss Insulin. Today we resumed his home Lantus, advanced pureed diet to a cc diet, soft te xture, as he has no teeth. (8) Morbid Obesity (BMI 50-59) As per Hx. (9) Sleep apnea on CPAP The was able to give detailed history of him being on a CPAP machine at home, but the machine was recalled 3 months ago, and the company has not sent him a new one yet despite many of her phone calls. This event was reported to RT. RT and Hospitalist are working on obtaining a proper device for him because of his diagnoses. The was updated about this at bedside today (10) Iron deficiency anemia Impression: Hemoglobin is stable. We have resumed home oral iron. (11) Gram-positive bacteremia Impression: This is felt to be contaminant. Repeat cultures have been negative to date and the other set was negative. Antibiotics have been discontinued. (12) Hypotension Impression: Resolved, Levophed was turned off (13) Accelerated junctional rhythm Resolved. Possibly due to COVID heart We will continue to monitor his rhythm on telemetry. (14) Hyperkalemia Impression: Resolved - Current Meds Current Meds: Current Medications Generic Name Dose Route Start Last Admin Trade Name Freq PRN Reason Stop Dose Admin Albuterol 2.5 mg 08/19/21 11:45 08/31/21 20:28 Albuterol Neb 2.5 Mg/3 Ml INH 2.5 mg Q4HR PRN Administration Wheezing Aspirin 325 mg 08/29/21 09:00 09/01/21 08:12 Aspirin Ec 325 Mg Tablet PO 325 mg DAILY DINESH Administration Atorvastatin Calcium 40 mg 08/19/21 21:00 08/31/21 20:10 Atorvastatin 40 Mg Tablet PO 40 mg QPM DINESH Administration Budesonide 0.5 mg 08/28/21 19:00 09/01/21 05:48 Budesonide 0.5 Mg/2 Ml Neb INH 0.5 mg RTBID DINESH Administration Calcium Carbonate/Glycine 1,250 mg 09/01/21 07:00 09/01/21 08:10 Calcium Carbonate Chew 500 Mg Tablet PO 09/01/21 11:01 1,250 mg Q4H DINESH Administration Protocol Cholecalciferol 50 mcg 08/21/21 09:00 09/01/21 08:12 Cholecalciferol 25 Mcg Tablet PO 50 mcg DAILY DINESH Administration Diltiazem HCl 30 mg 08/30/21 23:00 09/01/21 05:34 Diltiazem 30 Mg Tablet PO 30 mg Q6HR DINESH Administration Docusate Sodium 250 - 500 mg 08/26/21 09:00 09/01/21 08:13 Docusate Sodium 250 Mg Capsule PO 250 mg DAILY DINESH Administration Enoxaparin Sodium 40 mg 08/27/21 09:00 09/01/21 08:33 Enoxaparin 40 Mg/0.4 Ml Syringe SUBQ 40 mg DAILY DINESH Administration Fentanyl 75 mcg 08/25/21 15:42 09/01/21 05:33 Fentanyl 100 Mcg/2 Ml Vial IVP 75 mcg Q2HR PRN Administration PAIN Gabapentin 100 mg 08/31/21 21:00 08/31/21 20:10 Gabapentin 100 Mg Capsule PO 100 mg QPM DINESH Administration Dextrose 1,000 mls @ 100 mls/hr 09/01/21 08:00 09/01/21 08:01 D5w IV 09/01/21 17:59 100 mls/hr .Q10H DINESH Administration Insulin Aspart 3 - 11 unit 09/01/21 08:00 09/01/21 08:29 Insulin Aspart 300 Unit/3 Ml Pen SUBQ 5 unit 0800,1200,1700,2100 DINESH Administration Protocol Insulin Glargine 40 unit 09/01/21 09:00 09/01/21 08:36 Insulin Glargine 300 Unit/3 Ml Pen SUBQ 40 unit DAILY DINESH Administration Lidocaine 1 patch 08/29/21 14:54 08/31/21 12:36 Lidocaine Patch 5% TOP 1 patch DAILY PRN Administration PAIN Multi-Ingredient Ointment 1 applic 08/22/21 21:41 09/01/21 05:33 Zinc Oxide 20% Oint 30 Gm Tube TOP 1 applic PRN PRN Administration Skin Care Pantoprazole Sodium 40 mg 08/31/21 07:00 09/01/21 05:35 Pantoprazole 40 Mg Tablet PO 40 mg QDAC DINESH Administration Polyethylene Glycol 17 gm 08/22/21 09:00 09/01/21 08:39 Polyethylene Glycol 3350 17 Gm Packet PO Not Given DAILY DINESH Prednisone 20 mg 08/29/21 08:00 09/01/21 08:16 Prednisone 20 Mg Tablet PO 20 mg DAILYWM DINESH Administration Scopolamine HBr 1 patch 08/28/21 18:00 08/31/21 17:19 Scopolamine Patch TOP 1 patch Q3D DINESH Administration Senna 8.6 - 17.2 mg 08/26/21 09:00 08/31/21 07:40 Senna 8.6 Mg Tablet PO Not Given DAILY DINESH Sodium Chloride 10 ml 08/19/21 17:00 09/01/21 05:33 Sodium Chloride Flush 0.9% 10 Ml Syringe IVP 10 ml 0100,0900,1700 DINESH Administration Sodium Chloride 20 ml 08/22/21 04:43 08/31/21 20:30 Sodium Chloride Flush 0.9% 10 Ml Syringe IVP 20 ml PRN PRN Administration After Blood Draw Trazodone HCl 50 mg 08/31/21 21:00 08/31/21 20:10 Trazodone 50 Mg Tablet PO 50 mg QPM DINESH Administration - Lab Result Fish Bone Diagrams: 09/01/21 03:30 09/01/21 03:30 - Additional Planning My Orders: My Active Orders 08/31/21 09:34 Chlorhexidine [Peridex] 15 ml PO BID PRN 09/01/21 07:00 Calcium Carbonate [Tums] 1,250 mg PO Q4H 09/01/21 08:00 Insulin Aspart [NovoLOG] 3 - 11 unit SUBQ 0800,1200,1700,2100 09/01/21 Lunch Carb-controlled Diet [DIET] 09/02/21 05:00 CALCIUM, IONIZED ([facility]) [BG] DAILYLAB MAGNESIUM [CHEM] DAILYLAB PHOSPHORUS [CHEM] DAILYLAB 09/03/21 05:00 CALCIUM, IONIZED ([facility]) [BG] DAILYLAB MAGNESIUM [CHEM] DAILYLAB PHOSPHORUS [CHEM] DAILYLAB Subjective - Subjective Patient Reports: Feeling Better, Other (Eager to go home, motivated to work on standing to bear weight.) Objective Vital Signs: Vital Signs - 24 hr 08/31/21 08/31/21 08/31/21 10:00 11:00 12:00 Temperature 36.9 C Heart Rate Heart Rate [ 117 H 115 H 122 H Monitoring electrodes] Respiratory 24 21 25 H Rate Blood Pressure Blood Pressure 119/51 L 127/71 142/51 H [Right Radial artery] O2 Saturation 91 L 92 95 08/31/21 08/31/21 08/31/21 12:25 13:00 14:00 Temperature Heart Rate Heart Rate [ 116 H 109 H Monitoring electrodes] Respiratory 24 23 Rate Blood Pressure 142/51 H Blood Pressure 112/72 106/61 [Right Radial artery] O2 Saturation 92 95 08/31/21 08/31/21 08/31/21 15:00 16:00 17:00 Temperature Heart Rate Heart Rate [ 107 H 108 H 111 H Monitoring electrodes] Respiratory 20 19 19 Rate Blood Pressure Blood Pressure 127/50 L 119/63 151/79 H [Right Radial artery] O2 Saturation 92 94 96 08/31/21 08/31/21 08/31/21 17:11 17:19 18:00 Temperature 37.2 C Heart Rate Heart Rate [ 119 H Monitoring electrodes] Respiratory 25 H Rate Blood Pressure 151/79 H Blood Pressure 135/61 H [Right Radial artery] O2 Saturation 97 08/31/21 08/31/21 08/31/21 19:00 20:00 20:29 Temperature 37.2 C Heart Rate 108 H Heart Rate [ 104 H 107 H Monitoring electrodes] Respiratory 24 25 H 22 Rate Blood Pressure Blood Pressure 135/55 H 139/63 H [Right Radial artery] O2 Saturation 96 94 08/31/21 08/31/21 08/31/21 21:00 22:00 23:00 Temperature Heart Rate Heart Rate [ 108 H 110 H 93 Monitoring electrodes] Respiratory 23 22 26 H Rate Blood Pressure Blood Pressure 120/59 L 116/66 144/69 H [Right Radial artery] O2 Saturation 98 97 93 08/31/21 08/31/21 09/01/21 23:33 23:34 00:00 Temperature 37.0 C Heart Rate Heart Rate [ 111 H Monitoring electrodes] Respiratory 21 Rate Blood Pressure 128/62 Blood Pressure 117/60 [Right Radial artery] O2 Saturation 98 09/01/21 09/01/21 09/01/21 01:28 01:43 02:00 Temperature Heart Rate 102 H Heart Rate [ 109 H 107 H Monitoring electrodes] Respiratory 21 21 Rate Blood Pressure Blood Pressure 134/69 H 119/51 L [Right Radial artery] O2 Saturation 96 95 09/01/21 09/01/21 09/01/21 03:00 03:07 04:04 Temperature 37.1 C Heart Rate Heart Rate [ 113 H 123 H Monitoring electrodes] Respiratory 20 22 22 Rate Blood Pressure Blood Pressure 131/74 H 134/73 H [Right Radial artery] O2 Saturation 95 91 L 94 09/01/21 09/01/21 09/01/21 05:00 05:34 05:49 Temperature Heart Rate 120 H Heart Rate [ 122 H Monitoring electrodes] Respiratory 23 24 Rate Blood Pressure 157/78 H Blood Pressure 157/78 H [Right Radial artery] O2 Saturation 95 09/01/21 09/01/21 09/01/21 06:00 07:00 07:38 Temperature Heart Rate Heart Rate [ 118 H 88 112 H Monitoring electrodes] Respiratory 22 21 20 Rate Blood Pressure Blood Pressure 123/67 124/69 141/77 H [Right Radial artery] O2 Saturation 96 97 98 09/01/21 09:00 Temperature 37.3 C Heart Rate Heart Rate [ 115 H Monitoring electrodes] Respiratory 20 Rate Blood Pressure Blood Pressure 130/74 [Right Radial artery] O2 Saturation 98 Oxygen O2 Source Nasal cannula I&O (Last 24 Hrs): Intake and Output Totals x24h 08/30/21 08/31/21 09/01/21 23:59 23:59 23:59 Intake Total 6714.252 5856.000 370 Output Total 3415 3335 890 Balance -1612.075 -1115.000 -520 General: Alert, Oriented x3 HEENT: Mucous membr. moist/pink, Other (Edentulous) Neuro: Alert, Non Focal, Oriented Times 3 Cardiovascular: Regular rate, Other (Distant heart sounds) Respiratory: No respiratory distress (wearing O2 by n.c.) Abdomen: Soft (Obese with pannus) Rectal: Other (Has a Nunn) Extremities: Other (Trace edema, has venous stasis changes) - Results Results: Laboratory Results WBC 9.9 x10^3/uL (4.8-10.8) 09/01/21 03:30 RBC 3.08 10^6/uL (4.70-6.10) L 09/01/21 03:30 Hgb 9.0 g/dL (14.0-18.0) L 09/01/21 03:30 Hct 29.9 % (42.0-52.0) L 09/01/21 03:30 MCV 97.1 fL (80.0-94.0) H 09/01/21 03:30 MCH 29.2 pg (27.0-31.0) 09/01/21 03:30 MCHC 30.1 g/dL (32.0-36.0) L 09/01/21 03:30 RDW 18.1 % (12.0-15.0) H 09/01/21 03:30 Plt Count 312 10^3/uL (130-450) 09/01/21 03:30 MPV 10.1 fL (7.4-11.4) 09/01/21 03:30 Neut # (Auto) 7.1 10^3/uL (1.5-6.6) H 09/01/21 03:30 Lymph # (Auto) 1.2 10^3/uL (1.5-3.5) L 09/01/21 03:30 Republic # (Auto) 1.4 10^3/uL (0.0-1.0) H 09/01/21 03:30 Eos # (Auto) 0.1 10^3/uL (0.0-0.7) 09/01/21 03:30 Baso # (Auto) 0.0 10^3/uL (0.0-0.1) 09/01/21 03:30 Absolute Nucleated RBC 0.00 x10^3/uL 09/01/21 03:30 Total Counted 100 08/29/21 05:45 Band Neuts % (Manual) Not Reportable 08/31/21 05:35 Abnorm Lymph % (Manual) Not Reportable 08/31/21 05:35 Metamyelocytes % 1 % (-0) H 08/27/21 04:45 Myelocytes % 1 % (-0) H 08/27/21 04:45 Nucleated RBC % 0.0 /100WBC 09/01/21 03:30 Neutrophils # (Manual) Not Reportable 08/31/21 05:35 Lymphocytes # (Manual) Not Reportable 08/31/21 05:35 Monocytes # (Manual) Not Reportable 08/31/21 05:35 Eosinophils # (Manual) Not Reportable 08/31/21 05:35 Basophils # (Manual) Not Reportable 08/31/21 05:35 Nucleated RBCs 1 % 08/27/21 04:45 Differential Comment MANUAL=AUTO DIFF 08/31/21 05:35 WBC Morphology NORMAL APPEARANCE (NORMAL) 08/25/21 04:50 Platelet Estimate NORMAL (130-450,000) (NORMAL) 08/31/21 05:35 Platelet Morphology NORMAL APPEARANCE (NORMAL) 08/31/21 05:35 RBC Morph Micro Appear 1+ HYPOCHROMASIA (NORMAL) 08/31/21 05:35 PT 15.3 secs (9.9-12.6) H 08/19/21 13:44 INR 1.4 (0.8-1.2) H 08/19/21 13:44 D-Dimer 527.1 ng/mL (200.0-255.0) H 08/22/21 04:45 Bld Gas Analysis Time 0523 08/29/21 05:19 Sample Site RIGHT RADIAL 08/29/21 05:19 ABG pH 7.39 (7.35-7.45) 08/29/21 05:19 ABG pCO2 52 mmHg (34-45) H 08/29/21 05:19 ABG pO2 77 mmHg (80-100) L 08/29/21 05:19 ABG HCO3 30.5 mmol/L (22.0-26.0) H 08/29/21 05:19 ABG Total CO2 32.1 MMOL/L (21.0-29.0) H 08/29/21 05:19 ABG O2 Saturation 94 % (94-98) 08/29/21 05:19 ABG Base Excess 4.7 mmol/L (-2.0-3.0) H 08/29/21 05:19 Endy Test POSITIVE 08/29/21 05:19 VBG pH 7.401 (7.31-7.41) 09/01/21 03:30 Ionized Calcium 1.07 mmol/L (1.15-1.33) L 09/01/21 03:30 Respiration Rate 10 b/min 08/29/21 05:19 O2 Delivery Device BiPAP 08/29/21 05:19 Vent Mode ASSIST/CONTROL 08/25/21 13:17 FiO2 50.00 08/29/21 05:19 Tidal Volume 500 mL 08/25/21 13:17 PEEP 7 cmH2O 08/25/21 13:17 EPAP 8 cmH2O 08/29/21 05:19 IPAP 16 cmH2O 08/29/21 05:19 Sodium 148 mmol/L (135-145) H 09/01/21 03:30 Potassium 3.4 mmol/L (3.5-5.0) L 09/01/21 03:30 Chloride 108 mmol/L (101-111) 09/01/21 03:30 Carbon Dioxide 30 mmol/L (21-32) 09/01/21 03:30 Anion Gap 10.0 (6-13) 09/01/21 03:30 BUN 28 mg/dL (6-20) H 09/01/21 03:30 Creatinine 1.3 mg/dL (0.6-1.2) H 09/01/21 03:30 Estimated GFR (MDRD) 54 (>89) L 09/01/21 03:30 Glucose 140 mg/dL (70-100) H 09/01/21 03:30 POC Whole Bld Glucose 190 mg/dL (70 - 100) H 09/01/21 07:35 Lactic Acid 1.3 mmol/L (0.5-2.2) 08/19/21 10:05 Calcium 7.7 mg/dL (8.5-10.3) L 09/01/21 03:30 Ionized Calcium YES 08/26/21 04:40 Phosphorus 2.6 mg/dL (2.5-4.6) 09/01/21 03:30 Magnesium 2.8 mg/dL (1.7-2.8) 09/01/21 03:30 Total Bilirubin 0.6 mg/dL (0.2-1.0) 08/27/21 04:45 Direct Bilirubin 0.1 mg/dL (0.1-0.5) 08/24/21 04:20 AST 29 IU/L (10-42) 08/27/21 04:45 ALT 24 IU/L (10-60) 08/27/21 04:45 Alkaline Phosphatase 61 IU/L (42-121) 08/27/21 04:45 Troponin I High Sens 11.4 ng/L (2.3-19.7) 08/19/21 10:05 C-Reactive Protein 6.6 mg/dL (0-1.0) H 08/21/21 04:53 B-Natriuretic Peptide 54 pg/mL (5-100) 08/19/21 10:05 Total Protein 6.4 g/dL (6.7-8.2) L 08/27/21 04:45 Albumin 2.6 g/dL (3.2-5.5) L 08/30/21 04:40 Globulin 3.9 g/dL (2.1-4.2) 08/27/21 04:45 Albumin/Globulin Ratio 0.6 (1.0-2.2) L 08/27/21 04:45 Prealbumin 26 mg/dL (18-45) 08/27/21 04:45 25-OH Vitamin D Total 10 ng/mL (30-100) L 08/20/21 13:55 TSH 0.13 uIU/mL (0.34-5.60) L 08/21/21 04:00 Free T4 1.27 ng/dL (0.58-1.64) 08/21/21 04:00 Nasal Adenovirus (PCR) NOT DETECTED 08/19/21 10:15 Nasal B. parapertussis DNA (PCR) NOT DETECTED 08/19/21 10:15 Nasal Coronavir 229E PCR NOT DETECTED 08/19/21 10:15 Nasal Coronavir HKU1 PCR NOT DETECTED 08/19/21 10:15 Nasal Coronavir NL63 PCR NOT DETECTED 08/19/21 10:15 Nasal Coronavir OC43 PCR NOT DETECTED 08/19/21 10:15 Nasal Enterovir/Rhinovir PCR DETECTED A 08/19/21 10:15 Nasal Influenza B PCR NOT DETECTED 08/19/21 10:15 Nasal Influenza A PCR NOT DETECTED 08/19/21 10:15 Nasal Parainfluen 1 PCR NOT DETECTED 08/19/21 10:15 Nasal Parainfluen 2 PCR NOT DETECTED 08/19/21 10:15 Nasal Parainfluen 3 PCR NOT DETECTED 08/19/21 10:15 Nasal Parainfluen 4 PCR NOT DETECTED 08/19/21 10:15 Nasal RSV (PCR) NOT DETECTED 08/19/21 10:15 Nasal Screen MRSA (PCR) NEGATIVE (NEGATIVE) 08/19/21 13:30 Nasal B.pertussis DNA PCR NOT DETECTED 08/19/21 10:15 Nasal C.pneumoniae (PCR) NOT DETECTED 08/19/21 10:15 Richy Human Metapneumo PCR NOT DETECTED 08/19/21 10:15 Nasal M.pneumoniae (PCR) NOT DETECTED 08/19/21 10:15 Nasal SARS-CoV-2 (PCR) DETECTED A 08/19/21 10:15 Ref Lab Test Result Cancelled 08/19/21 10:05 - Procedures Procedures: Procedures ASSISTANCE WITH RESPIRATORY VENTILATION, <24 HRS, CPAP (12/05/15) CATARAC PHACOEMULS/ASPIR (03/29/14) ENDOSC POLYPECTOMY OF LG INTEST (05/12/13) ESOPHAGOGASTRODUODENOSCOPY [EGD] W/CLOSED BIOPSY (05/12/13) INSERT LENS AT CATAR EXT (03/29/14) INSERTION OF INFUSION DEV INTO L FEMOR VEIN, PERC APPROACH (04/22/19) TRANSFUSE NONAUT FROZEN PLASMA IN PERIPH VEIN, PERC (04/22/19) TRANSFUSE NONAUT RED BLOOD CELLS IN CENTRAL VEIN, PERC (04/22/19)
[2021-09-01] MEDS: ALBUTEROL NEB 2.5 MG/3 ML INH PRN ×2 (13:00→18:50)
[2021-09-01] MEDS: SENNA 8.6 MG TABLET PO SCH (18:00)
[2021-09-01 20:26] LABS: CALCIUM 7.9 mg/dL (8.5-10.3); CREATININE 1.4 mg/dL (0.6-1.2); POTASSIUM 4.2 mmol/L (3.5-5.0)
[2021-09-01] MEDS: traZODone 50 MG TABLET PO SCH (20:37)
[2021-09-01] MEDS: ATORVASTATIN 40 MG TABLET PO SCH (20:37)
[2021-09-01] MEDS: GABAPENTIN 100 MG CAPSULE PO SCH (20:37)
[2021-09-02] MEDS: SODIUM CHLORIDE FLUSH 0.9% 10 ML SYRINGE IVP PRN ×2 (04:24→21:15)
[2021-09-02 04:36] LABS: BASOPHILS % (AUTO) 0.3 %; CALCIUM, IONIZED 1.06 mmol/L (1.15-1.33); EOSINOPHILS # (AUTO) 0.1 10^3/uL (0.0-0.7); EOSINOPHILS % (AUTO) 1.5 %; HCT - HEMATOCRIT 29.9 % (42.0-52.0); HGB - HEMOGLOBIN 8.8 g/dL (14.0-18.0); LYMPHOCYTES # (AUTO) 1.6 10^3/uL (1.5-3.5); LYMPHOCYTES % (AUTO) 16.9 %; MEAN CORPUSCULAR HEMOGLOBIN 28.1 pg (27.0-31.0); MEAN CORPUSCULAR HGB CONC 29.4 g/dL (32.0-36.0); MEAN CORPUSCULAR VOLUME 95.5 fL (80.0-94.0); MEAN PLATELET VOLUME 9.2 fL (7.4-11.4); MONOCYTES % (AUTO) 11.1 %; NEUTROPHILS # (AUTO) 6.5 10^3/uL (1.5-6.6); NEUTROPHILS % (AUTO) 69.9 %; PLT - PLATELET COUNT 271 10^3/uL (130-450); RED BLOOD COUNT 3.13 10^6/uL (4.70-6.10); RED CELL DISTRIBUTION WIDTH 17.7 % (12.0-15.0); VBG PH 7.391 (7.31-7.41); WHITE BLOOD COUNT 9.3 x10^3/uL (4.8-10.8)
[2021-09-02 04:49] LABS: CALCIUM 7.7 mg/dL (8.5-10.3); CREATININE 1.2 mg/dL (0.6-1.2); MAGNESIUM 2.6 mg/dL (1.7-2.8); PHOSPHORUS 2.5 mg/dL (2.5-4.6); POTASSIUM 3.5 mmol/L (3.5-5.0)
[2021-09-02] MEDS: PANTOPRAZOLE 40 MG TABLET PO SCH (06:31)
[2021-09-02] MEDS: diltiaZEM 30 MG TABLET PO SCH ×4 (06:31→23:50)
[2021-09-02] MEDS: CALCIUM CARBONATE CHEW 500 MG TABLET PO SCH ×3 (06:39→23:51)
[2021-09-02] MEDS: BUDESONIDE 0.5 MG/2 ML NEB INH SCH ×2 (09:38→19:08)
[2021-09-02] MEDS: ALBUTEROL NEB 2.5 MG/3 ML INH PRN ×2 (09:38→19:08)
[2021-09-02] MEDS: ENOXAPARIN 40 MG/0.4 ML SYRINGE SUBQ SCH (10:42)
[2021-09-02] MEDS: CHOLECALCIFEROL 25 MCG TABLET PO SCH (10:43)
[2021-09-02] MEDS: predniSONE 20 MG TABLET PO SCH (10:44)
[2021-09-02] MEDS: ASPIRIN EC 325 MG TABLET PO SCH (10:44)
[2021-09-02] MEDS: NEUTRA-PHOS 250 MG TABLET PO SCH ×2 (10:44→17:06)
[2021-09-02] MEDS: INSULIN ASPART 300 UNIT/3 ML PEN SUBQ SCH ×4 (10:45→21:11)
[2021-09-02] MEDS: FERROUS GLUCONATE 324 MG TABLET PO SCH (10:45)
[2021-09-02] MEDS: CHLORHEXIDINE GLUCONATE 15 ML UDC PO PRN (11:02)
[2021-09-02] MEDS: DOCUSATE SODIUM 250 MG CAPSULE PO SCH (11:03)
[2021-09-02] MEDS: SENNA 8.6 MG TABLET PO SCH (11:05)
[2021-09-02] MEDS: polyethylene glycoL 3350 17 GM PACKET PO SCH (11:05)
[2021-09-02] MEDS: SODIUM CHLORIDE FLUSH 0.9% 10 ML SYRINGE IVP SCH ×3 (11:06→21:15)
[2021-09-02] MEDS: INSULIN GLARGINE 300 UNIT/3 ML PEN SUBQ SCH (11:13)
[2021-09-02] MEDS ORDERED: ONDANSETRON ODT 4 MG TABLET TL PRN (15:10)
[2021-09-02] MEDS ORDERED: NEUTRA-PHOS 250 MG TABLET PO SCH (16:30)
--- NOTE | 2021-09-02 18:20 | PROVIDER PROGRESS NOTE ---
Subjective - Prog Note Date Prog Note Date: 09/02/21 Prog Note Time: 18:19 - Subjective Subjective: I am the hospitalist that is coming on service. This gentleman was admitted August 19 with Covid pneumonia. He has severe COPD as well as probable obesi ty hypoventilation and obstructive sleep apnea. Due to acute on chronic respiratory failure with hypoxia he was intubated. Successfully extubated. Currently alternating between BiPAP and nasal cannula. He is getting increasingly frustrated with being here. Does not want to keep the BiPAP on. W ants to go home. He still requiring 2 L to maintain O2 sats of 92%. He is being controlled by respiratory therapy to go on and off BiPAP. He is a moderate assist x2 and can only stand or walk for 15 seconds. Severe fatigue. He is going to need rehab. Current Medications - Current Medications Current Medications: Active Medications Albuterol (Albuterol Neb 2.5 Mg/3 Ml) 2.5 mg INH Q4HR PRN PRN Reason: Wheezing Last Admin: 09/02/21 09:38 Dose: 2.5 mg Documented by: Aspirin (Aspirin Ec 325 Mg Tablet) 325 mg PO DAILY [facility] Last Admin: 09/02/21 10:44 Dose: 325 mg Documented by: Atorvastatin Calcium (Atorvastatin 40 Mg Tablet) 40 mg PO QPM [facility] Last Admin: 09/01/21 20:37 Dose: 40 mg Documented by: Budesonide (Budesonide 0.5 Mg/2 Ml Neb) 0.5 mg INH RTBID [facility] Last Admin: 09/02/21 09:38 Dose: 0.5 mg Documented by: Chlorhexidine Gluconate (Chlorhexidine Gluconate 15 Ml Ud) 15 ml PO BID PRN PRN Reason: ORAL CARE Last Admin: 09/02/21 11:02 Dose: 15 ml Documented by: Cholecalciferol (Cholecalciferol 25 Mcg Tablet) 50 mcg PO DAILY [facility] Last Admin: 09/02/21 10:43 Dose: 50 mcg Documented by: Diltiazem HCl (Diltiazem 30 Mg Tablet) 30 mg PO Q6HR [facility] Last Admin: 09/02/21 17:13 Dose: 30 mg Documented by: Docusate Sodium (Docusate Sodium 250 Mg Capsule) 250 - 500 mg PO DAILY [facility] Last Admin: 09/02/21 11:03 Dose: Not Given Documented by: Enoxaparin Sodium (Enoxaparin 40 Mg/0.4 Ml Syringe) 40 mg SUBQ DAILY [facility] Last Admin: 09/02/21 10:42 Dose: 40 mg Documented by: Fentanyl (Fentanyl 100 Mcg/2 Ml Vial) 75 mcg IVP Q2HR PRN PRN Reason: PAIN Last Admin: 09/01/21 05:33 Dose: 75 mcg Documented by: Ferrous Gluconate (Ferrous Gluconate 324 Mg Tablet) 324 mg PO DAILYWM [facility] Last Admin: 09/02/21 10:45 Dose: 324 mg Documented by: Gabapentin (Gabapentin 100 Mg Capsule) 100 mg PO QPM [facility] Last Admin: 09/01/21 20:37 Dose: 100 mg Documented by: Insulin Aspart (Insulin Aspart 300 Unit/3 Ml Pen) 3 - 11 unit SUBQ 0800,1200,1700,2100 [facility]; Protocol Last Admin: 09/02/21 17:10 Dose: 5 unit Documented by: Insulin Glargine (Insulin Glargine 300 Unit/3 Ml Pen) 40 unit SUBQ DAILY [facility] Last Admin: 09/02/21 11:13 Dose: 40 unit Documented by: Lidocaine (Lidocaine Patch 5%) 1 patch TOP DAILY PRN PRN Reason: PAIN Last Admin: 08/31/21 12:36 Dose: 1 patch Documented by: Mineral Oil (Min Oil/Dimethicon/Coconut Oil 92 Gm Tube) 1 applic TOP PRN PRN PRN Reason: Skin Care Multi-Ingredient Ointment (Zinc Oxide 20% Oint 30 Gm Tube) 1 applic TOP PRN PRN PRN Reason: Skin Care Last Admin: 09/01/21 05:33 Dose: 1 applic Documented by: Ondansetron HCl (Ondansetron Odt 4 Mg Tablet) 4 mg TL Q6HR PRN PRN Reason: Nausea / Vomiting Pantoprazole Sodium (Pantoprazole 40 Mg Tablet) 40 mg PO QDAC [facility] Last Admin: 09/02/21 06:31 Dose: 40 mg Documented by: Polyethylene Glycol (Polyethylene Glycol 3350 17 Gm Packet) 17 gm PO DAILY [facility] Last Admin: 09/02/21 11:05 Dose: Not Given Documented by: Prednisone (Prednisone 20 Mg Tablet) 20 mg PO DAILYWM [facility] Last Admin: 09/02/21 10:44 Dose: 20 mg Documented by: Scopolamine HBr (Scopolamine Patch) 1 patch TOP Q3D [facility] Last Admin: 08/31/21 17:19 Dose: 1 patch Documented by: Senna (Senna 8.6 Mg Tablet) 8.6 - 17.2 mg PO DAILY [facility] Last Admin: 09/02/21 11:05 Dose: Not Given Documented by: Sodium Chloride (Sodium Chloride Flush 0.9% 10 Ml Syringe) 10 ml IVP 0100,0900,1700 [facility] Last Admin: 09/02/21 17:16 Dose: 10 ml Documented by: Sodium Chloride (Sodium Chloride Flush 0.9% 10 Ml Syringe) 20 ml IVP PRN PRN PRN Reason: After Blood Draw Last Admin: 09/02/21 04:24 Dose: 30 ml Documented by: Trazodone HCl (Trazodone 50 Mg Tablet) 50 mg PO QPM [facility] Last Admin: 09/01/21 20:37 Dose: 50 mg Documented by: Omeprazole 40 mg PO DAILY 03/06/13 Aspirin [Aspir-Shannen] 325 mg PO DAILY 01/17/14 Atorvastatin Calcium 40 mg PO QPM 04/22/19 Diltiazem HCl [Diltiazem ER] 180 mg PO DAILY 04/22/19 Gabapentin [Neurontin] 100 mg PO QPM 04/22/19 Ipratropium/Albuterol [Duoneb] 3 ml INH Q6H 04/22/19 Furosemide 80 mg PO BID 04/24/19 Fluticasone/Salmeterol [Advair 500-50 Diskus] 1 each INH BID 05/31/19 Insulin Glargine [Lantus Solostar] 0 - 58 unit IM DAILY 10/09/20 Ferrous Gluconate 324 mg PO .[id number] 08/19/21 Losartan [Cozaar] 50 mg PO DAILY 08/19/21 Potassium Chloride [K-Dur] 20 meq PO BID 08/19/21 metFORMIN [Glucophage] 1,000 mg PO DAILY 08/19/21 Objective - Vital Signs/Intake & Output Reviewed Vital Signs: Yes Vital Signs: Vital Signs x48h Pulse Resp BP BP Pulse Ox 09/02/21 17:13 166/95 H 09/02/21 17:00 112 H 25 H 166/95 H 92 09/02/21 16:00 105 H 22 120/96 H 92 09/02/21 15:00 112 H 25 H 139/75 H 95 09/02/21 14:00 111 H 24 125/64 96 09/02/21 13:21 155/79 H 09/02/21 13:00 112 H 25 H 98/86 H 2 L 09/02/21 12:00 110 H 26 H 155/79 H 95 09/02/21 11:10 112 H 23 165/80 H 99 Intake & Output: Intake & Output 08/30/21 08/31/21 09/01/21 09/02/21 23:59 23:59 23:59 23:59 Intake Total 3607.724 4709.000 1160 548 Output Total 3415 3335 1590 1257 Balance -1612.075 -1115.000 -430 -709 - Objective General Appearance: positive: Alert, Mild distress Eyes Bilateral: positive: PERRL ENT: positive: No signs of dehydration Neck: positive: No JVD. negative: Stiff neck Respiratory: positive: Wheezes Cardiovascular: positive: Regular rate & rhythm Abdomen: positive: Non-tender, No organomegaly, Nml bowel sounds, No distention - Lab Results Fish Bones: 09/04/21 05:55 09/04/21 06:33 Other Labs: Lab Results x24hrs 09/02/21 09/02/21 09/02/21 Range/Units 17:02 11:44 07:58 WBC (4.8-10.8) x10^3/uL RBC (4.70-6.10) 10^6/uL Hgb (14.0-18.0) g/dL Hct (42.0-52.0) % MCV (80.0-94.0) fL MCH (27.0-31.0) pg MCHC (32.0-36.0) g/dL RDW (12.0-15.0) % Plt Count (130-450) 10^3/uL MPV (7.4-11.4) fL Neut # (Auto) (1.5-6.6) 10^3/uL Lymph # (Auto) (1.5-3.5) 10^3/uL Johnston # (Auto) (0.0-1.0) 10^3/uL Eos # (Auto) (0.0-0.7) 10^3/uL Baso # (Auto) (0.0-0.1) 10^3/uL Absolute Nucleated RBC x10^3/uL Nucleated RBC % /100WBC VBG pH (7.31-7.41) Ionized Calcium (1.15-1.33) mmol/L Sodium (135-145) mmol/L Potassium (3.5-5.0) mmol/L Chloride (101-111) mmol/L Carbon Dioxide (21-32) mmol/L Anion Gap (6-13) BUN (6-20) mg/dL Creatinine (0.6-1.2) mg/dL Estimated GFR (MDRD) (>89) Glucose (70-100) mg/dL POC Whole Bld Glucose 202 H 155 H 138 H (70 - 100) mg/dL Calcium (8.5-10.3) mg/dL Phosphorus (2.5-4.6) mg/dL Magnesium (1.7-2.8) mg/dL 09/02/21 09/02/21 09/02/21 Range/Units 04:25 04:25 04:25 WBC 9.3 (4.8-10.8) x10^3/uL RBC 3.13 L (4.70-6.10) 10^6/uL Hgb 8.8 L (14.0-18.0) g/dL Hct 29.9 L (42.0-52.0) % MCV 95.5 H (80.0-94.0) fL MCH 28.1 (27.0-31.0) pg MCHC 29.4 L (32.0-36.0) g/dL RDW 17.7 H (12.0-15.0) % Plt Count 271 (130-450) 10^3/uL MPV 9.2 (7.4-11.4) fL Neut # (Auto) 6.5 (1.5-6.6) 10^3/uL Lymph # (Auto) 1.6 (1.5-3.5) 10^3/uL Johnston # (Auto) 1.0 (0.0-1.0) 10^3/uL Eos # (Auto) 0.1 (0.0-0.7) 10^3/uL Baso # (Auto) 0.0 (0.0-0.1) 10^3/uL Absolute Nucleated RBC 0.00 x10^3/uL Nucleated RBC % 0.0 /100WBC VBG pH 7.391 (7.31-7.41) Ionized Calcium 1.06 L (1.15-1.33) mmol/L Sodium 144 (135-145) mmol/L Potassium 3.5 (3.5-5.0) mmol/L Chloride 107 (101-111) mmol/L Carbon Dioxide 28 (21-32) mmol/L Anion Gap 9.0 (6-13) BUN 22 H (6-20) mg/dL Creatinine 1.2 (0.6-1.2) mg/dL Estimated GFR (MDRD) 59 L (>89) Glucose 123 H (70-100) mg/dL POC Whole Bld Glucose (70 - 100) mg/dL Calcium 7.7 L (8.5-10.3) mg/dL Phosphorus 2.5 (2.5-4.6) mg/dL Magnesium 2.6 (1.7-2.8) mg/dL 09/01/21 09/01/21 Range/Units 20:31 14:30 WBC (4.8-10.8) x10^3/uL RBC (4.70-6.10) 10^6/uL Hgb (14.0-18.0) g/dL Hct (42.0-52.0) % MCV (80.0-94.0) fL MCH (27.0-31.0) pg MCHC (32.0-36.0) g/dL RDW (12.0-15.0) % Plt Count (130-450) 10^3/uL MPV (7.4-11.4) fL Neut # (Auto) (1.5-6.6) 10^3/uL Lymph # (Auto) (1.5-3.5) 10^3/uL Johnston # (Auto) (0.0-1.0) 10^3/uL Eos # (Auto) (0.0-0.7) 10^3/uL Baso # (Auto) (0.0-0.1) 10^3/uL Absolute Nucleated RBC x10^3/uL Nucleated RBC % /100WBC VBG pH (7.31-7.41) Ionized Calcium (1.15-1.33) mmol/L Sodium 146 H (135-145) mmol/L Potassium 4.2 (3.5-5.0) mmol/L Chloride 107 (101-111) mmol/L Carbon Dioxide 27 (21-32) mmol/L Anion Gap 12.0 (6-13) BUN 27 H (6-20) mg/dL Creatinine 1.4 H (0.6-1.2) mg/dL Estimated GFR (MDRD) 49 L (>89) Glucose 337 H (70-100) mg/dL POC Whole Bld Glucose 207 H (70 - 100) mg/dL Calcium 7.9 L (8.5-10.3) mg/dL Phosphorus (2.5-4.6) mg/dL Magnesium (1.7-2.8) mg/dL Assessment/Plan - Problem List (1) Acute and chronic respiratory failure with hypoxia Impression: This was secondary to COVID-19 pneumonia and Hx of COPD and possibly from obesity hypoventilation and OMERO. He was extubated and is on BIPAP at night alternating with n.c. and remains in the ICU due to BiPAP but he hates it. He completed 10 days of iv Decadron and he is on po Prednisone. He is also greater than 10 L positive in fluid balance since hospitalization. Lasix IV stopped 1/2 Patient's home CPAP has been recalled by [employer]. Hospitalist ordered a non- invasive home ventilator to treat his chronic respiratory failure. BIPAP was considered and deemed ineffective. We are now awaiting delivery. Hopefully he will remain stable enough to go to rehab. He is working with physical therapy due to severe deconditioning after being in the ICU and bedbound. He is not sure he would agree to a Covid vaccine. He is getting restless about having to use BiPAP at night. Nevertheless we will address these issues in an effort to try and get him discharged from the hospital. (2) Pneumonia due to COVID-19 virus Impression: This is the cause of his respiratory failure. He has now completed Remdesivir, Decadron and a course of iV antibiotics. When he had severe oozing of blood from his IJ line several days ago, his Lovenox 150 twice daily empiric was changed to a low 40 mg daily (prophylactic) dose. (3) Severe COPD A PFT report from several years ago showed he has severe COPD with FEV1/FVC ratio of 30% of predicted. His said he was a heavy smoker but has now quit about 7 years ago. He was not on home O2 before this admission. We will continue him on Prednisone 20 mg daily orally, now that he has finished a 10 day course of Decadron. We will plan to taper the Prednisone very slowly, over many weeks. He will need 7 days of this dose, then downt o 15 mg for next 7 days. We started him on inhaled Budesonide and Singulair and continue the inhaled albuterol nebulizer. There is no change today. (4) Hypernatremia resolved This was likely related to getting IV diuretics and IV fluids containing saline. Will stopped saline and stopped Lasix and gave slow free water using D5W x another L between 09/01 and today and it worked. Recheck Na today and BMP daily (5) Skin tear on buttocks Pain is his biggest complaint since being extubated, because he is no longer sedated. We ordered topical care, turn and reposition and Fentanyl doses and Lidocaine patch for pain management. PT started working with sigrid to increase activity and more out of bed to chair and off of his skin tears. (6) Acute kidney injury superimposed on CKD Impression: His renal function continues to improve daily. On admission he was 39 and 2.5. Today he is 22 and 1.2. He was getting iv fluids plus ng liquid feeds. Ng feeds were stopped when he was extubated. We will continue to monitor his renal function and urine output. He still has the Nunn because he has not been able to stand and bear weight to use a bedsdie commode. (7) Insulin dependent diabetes mellitus Impression: His blood glucose was exacerbated by the steroids. We started a diabetic diet, and on ss Insulin. 09/01 we resumed his home Lantus, advanced pureed diet to a cc diet, soft texture, as he has no teeth. Yesterday's glucose was 190, 263, 361, 207. This morning he is 138 (8) Morbid Obesity (BMI 50-59) As per Hx. (9) Sleep apnea on CPAP The was able to give detailed history of him being on a CPAP machine at home, but the machine was recalled 3 months ago, and the [employer] has not sent him a new one yet despite many of her phone calls. This event was reported to RT. RT and Hospitalist are working on obtaining a proper device for him because of his diagnoses. (10) Iron deficiency anemia Impression: Hemoglobin is stable. We have resumed home oral iron. (11) Gram-positive bacteremia Impression: This is felt to be contaminant. Repeat cultures have been negative to date and the other set was negative. Antibiotics have been discontinued. (12) Hypotension Impression: Resolved, Levophed was turned off (13) Accelerated junctional rhythm Resolved. Possibly due to COVID heart We will continue to monitor his rhythm on telemetry. (14) Hyperkalemia Impression: Resolved
[2021-09-02] MEDS: traZODone 50 MG TABLET PO SCH (21:10)
[2021-09-02] MEDS: GABAPENTIN 100 MG CAPSULE PO SCH (21:10)
[2021-09-02] MEDS: ATORVASTATIN 40 MG TABLET PO SCH (21:10)
[2021-09-02 21:15] LABS: CALCIUM, IONIZED 1.07 mmol/L (1.15-1.33); VBG PH 7.443 (7.31-7.41)
[2021-09-02 21:40] LABS: PHOSPHORUS 2.9 mg/dL (2.5-4.6); POTASSIUM 5.1 mmol/L (3.5-5.0)
[2021-09-02] MEDS: fentaNYL 100 MCG/2 ML VIAL IVP PRN (23:51)
[2021-09-03] MEDS: SODIUM CHLORIDE FLUSH 0.9% 10 ML SYRINGE IVP PRN ×2 (00:05→04:43)
[2021-09-03] MEDS: CALCIUM CARBONATE CHEW 500 MG TABLET PO SCH (03:27)
[2021-09-03 05:57] LABS: CALCIUM 8.4 mg/dL (8.5-10.3); CREATININE 1.1 mg/dL (0.6-1.2); MAGNESIUM 2.2 mg/dL (1.7-2.8); PHOSPHORUS 3.1 mg/dL (2.5-4.6); POTASSIUM 3.5 mmol/L (3.5-5.0)
[2021-09-03] MEDS: diltiaZEM 30 MG TABLET PO SCH (06:05)
[2021-09-03] MEDS: PANTOPRAZOLE 40 MG TABLET PO SCH (06:06)
[2021-09-03 06:07] LABS: CALCIUM, IONIZED 1.14 mmol/L (1.15-1.33); VBG PH 7.373 (7.31-7.41)
[2021-09-03] MEDS: BUDESONIDE 0.5 MG/2 ML NEB INH SCH ×2 (06:20→19:51)
[2021-09-03 06:23] LABS: BASOPHILS % (AUTO) 0.2 %; EOSINOPHILS # (AUTO) 0.2 10^3/uL (0.0-0.7); EOSINOPHILS % (AUTO) 1.9 %; HCT - HEMATOCRIT 28.5 % (42.0-52.0); HGB - HEMOGLOBIN 8.5 g/dL (14.0-18.0); LYMPHOCYTES # (AUTO) 1.3 10^3/uL (1.5-3.5); LYMPHOCYTES % (AUTO) 15.5 %; MEAN CORPUSCULAR HEMOGLOBIN 29.1 pg (27.0-31.0); MEAN CORPUSCULAR HGB CONC 29.8 g/dL (32.0-36.0); MEAN CORPUSCULAR VOLUME 97.6 fL (80.0-94.0); MEAN PLATELET VOLUME 10.3 fL (7.4-11.4); MONOCYTES # (AUTO) 0.7 10^3/uL (0.0-1.0); MONOCYTES % (AUTO) 8.7 %; NEUTROPHILS # (AUTO) 5.9 10^3/uL (1.5-6.6); NEUTROPHILS % (AUTO) 73.3 %; PLT - PLATELET COUNT 265 10^3/uL (130-450); RED BLOOD COUNT 2.92 10^6/uL (4.70-6.10); RED CELL DISTRIBUTION WIDTH 17.7 % (12.0-15.0); WHITE BLOOD COUNT 8.1 x10^3/uL (4.8-10.8)
[2021-09-03] MEDS: INSULIN ASPART 300 UNIT/3 ML PEN SUBQ SCH ×4 (08:19→21:15)
[2021-09-03] MEDS: DOCUSATE SODIUM 250 MG CAPSULE PO SCH (11:19)
[2021-09-03] MEDS: polyethylene glycoL 3350 17 GM PACKET PO SCH (11:20)
[2021-09-03] MEDS: SENNA 8.6 MG TABLET PO SCH (11:27)
[2021-09-03] MEDS: predniSONE 20 MG TABLET PO SCH (12:14)
[2021-09-03] MEDS: ASPIRIN EC 325 MG TABLET PO SCH (12:17)
[2021-09-03] MEDS: FERROUS GLUCONATE 324 MG TABLET PO SCH (12:18)
[2021-09-03] MEDS: POTASSIUM CHLORIDE 20 MEQ TABLET PO SCH ×2 (12:22→14:50)
[2021-09-03] MEDS: CHOLECALCIFEROL 25 MCG TABLET PO SCH (12:24)
[2021-09-03] MEDS: ENOXAPARIN 40 MG/0.4 ML SYRINGE SUBQ SCH (12:30)
[2021-09-03] MEDS: INSULIN GLARGINE 300 UNIT/3 ML PEN SUBQ SCH (12:35)
[2021-09-03] MEDS: diltiaZEM CD 180 MG CAPSULE PO SCH (12:47)
[2021-09-03] MEDS: DEXTROSE 5% 1,000 ML IV SCH (12:56)
[2021-09-03] MEDS: SODIUM CHLORIDE FLUSH 0.9% 10 ML SYRINGE IVP SCH ×3 (13:03→23:31)
[2021-09-03] MEDS: SCOPOLAMINE PATCH TOP SCH (19:02)
--- NOTE | 2021-09-03 19:35 | PROVIDER PROGRESS NOTE ---
Subjective - Prog Note Date Prog Note Date: 09/03/21 Prog Note Time: 19:33 - Subjective Pt reports feeling: Improved Subjective: He is starting to realize the long road he has ahead of himself with regards to improving his strength, improving his respiratory status. A very long advance care planning conversation was held with he and his today. He has started to realize that he needs to comply with the BiPAP and the trilogy. Sometimes he would get frustrated and angry and not want the mask. He now realizes in order to live, he is going to need the mask. He denies any new complaints. No chest pain. Slightly improving shortness of breath. Slightly improvement mobility and working with physical therapy. Current Medications - Current Medications Current Medications: Active Medications Albuterol (Albuterol Neb 2.5 Mg/3 Ml) 2.5 mg INH Q4HR PRN PRN Reason: Wheezing Last Admin: 09/02/21 19:08 Dose: 2.5 mg Documented by: Aspirin (Aspirin Ec 325 Mg Tablet) 325 mg PO DAILY [facility] Last Admin: 09/03/21 12:17 Dose: 325 mg Documented by: Atorvastatin Calcium (Atorvastatin 40 Mg Tablet) 40 mg PO QPM [facility] Last Admin: 09/02/21 21:10 Dose: 40 mg Documented by: Budesonide (Budesonide 0.5 Mg/2 Ml Neb) 0.5 mg INH RTBID [facility] Last Admin: 09/03/21 06:20 Dose: 0.5 mg Documented by: Chlorhexidine Gluconate (Chlorhexidine Gluconate 15 Ml Udc) 15 ml PO BID PRN PRN Reason: ORAL CARE Last Admin: 09/02/21 11:02 Dose: 15 ml Documented by: Cholecalciferol (Cholecalciferol 25 Mcg Tablet) 50 mcg PO DAILY [facility] Last Admin: 09/03/21 12:24 Dose: 50 mcg Documented by: Diltiazem HCl (Diltiazem Cd 180 Mg Capsule) 180 mg PO DAILY [facility] Last Admin: 09/03/21 12:47 Dose: 180 mg Documented by: Docusate Sodium (Docusate Sodium 250 Mg Capsule) 250 - 500 mg PO DAILY [facility] Last Admin: 09/03/21 11:19 Dose: Not Given Documented by: Enoxaparin Sodium (Enoxaparin 40 Mg/0.4 Ml Syringe) 40 mg SUBQ DAILY [facility] Last Admin: 09/03/21 12:30 Dose: 40 mg Documented by: Fentanyl (Fentanyl 100 Mcg/2 Ml Vial) 75 mcg IVP Q2HR PRN PRN Reason: PAIN Last Admin: 09/02/21 23:51 Dose: 75 mcg Documented by: Ferrous Gluconate (Ferrous Gluconate 324 Mg Tablet) 324 mg PO DAILYWM [facility] Last Admin: 09/03/21 12:18 Dose: 324 mg Documented by: Gabapentin (Gabapentin 100 Mg Capsule) 100 mg PO QPM [facility] Last Admin: 09/02/21 21:10 Dose: 100 mg Documented by: Dextrose (D5w) 1,000 mls @ 83.333 mls/hr IV .Q12H [facility] Last Admin: 09/03/21 12:56 Dose: 83.333 mls/hr Documented by: Insulin Aspart (Insulin Aspart 300 Unit/3 Ml Pen) 3 - 11 unit SUBQ 0800,1200,1700,2100 [facility]; Protocol Last Admin: 09/03/21 17:32 Dose: 5 unit Documented by: Insulin Glargine (Insulin Glargine 300 Unit/3 Ml Pen) 40 unit SUBQ DAILY [facility] Last Admin: 09/03/21 12:35 Dose: 40 unit Documented by: Lidocaine (Lidocaine Patch 5%) 1 patch TOP DAILY PRN PRN Reason: PAIN Last Admin: 08/31/21 12:36 Dose: 1 patch Documented by: Mineral Oil (Min Oil/Dimethicon/Coconut Oil 92 Gm Tube) 1 applic TOP PRN PRN PRN Reason: Skin Care Multi-Ingredient Ointment (Zinc Oxide 20% Oint 30 Gm Tube) 1 applic TOP PRN PRN PRN Reason: Skin Care Last Admin: 09/01/21 05:33 Dose: 1 applic Documented by: Ondansetron HCl (Ondansetron Odt 4 Mg Tablet) 4 mg TL Q6HR PRN PRN Reason: Nausea / Vomiting Pantoprazole Sodium (Pantoprazole 40 Mg Tablet) 40 mg PO QDAC [facility] Last Admin: 09/03/21 06:06 Dose: 40 mg Documented by: Polyethylene Glycol (Polyethylene Glycol 3350 17 Gm Packet) 17 gm PO DAILY [facility] Last Admin: 09/03/21 11:20 Dose: Not Given Documented by: Prednisone (Prednisone 20 Mg Tablet) 20 mg PO DAILYWM [facility] Last Admin: 09/03/21 12:14 Dose: 20 mg Documented by: Scopolamine HBr (Scopolamine Patch) 1 patch TOP Q3D [facility] Last Admin: 09/03/21 19:02 Dose: 1 patch Documented by: Senna (Senna 8.6 Mg Tablet) 8.6 - 17.2 mg PO DAILY [facility] Last Admin: 09/03/21 11:27 Dose: Not Given Documented by: Sodium Chloride (Sodium Chloride Flush 0.9% 10 Ml Syringe) 10 ml IVP 0100,0900,1700 [facility] Last Admin: 09/03/21 19:02 Dose: 20 ml Documented by: Sodium Chloride (Sodium Chloride Flush 0.9% 10 Ml Syringe) 20 ml IVP PRN PRN PRN Reason: After Blood Draw Last Admin: 09/03/21 04:43 Dose: 30 ml Documented by: Trazodone HCl (Trazodone 50 Mg Tablet) 50 mg PO QPM [facility] Last Admin: 09/02/21 21:10 Dose: 50 mg Documented by: Omeprazole 40 mg PO DAILY 03/06/13 Aspirin [Aspir-Shannen] 325 mg PO DAILY 01/17/14 Atorvastatin Calcium 40 mg PO QPM 04/22/19 Diltiazem HCl [Diltiazem ER] 180 mg PO DAILY 04/22/19 Gabapentin [Neurontin] 100 mg PO QPM 04/22/19 Ipratropium/Albuterol [Duoneb] 3 ml INH Q6H 04/22/19 Furosemide 80 mg PO BID 04/24/19 Fluticasone/Salmeterol [Advair 500-50 Diskus] 1 each INH BID 05/31/19 Insulin Glargine [Lantus Solostar] 0 - 58 unit IM DAILY 10/09/20 Ferrous Gluconate 324 mg PO .[id number] 08/19/21 Losartan [Cozaar] 50 mg PO DAILY 08/19/21 Potassium Chloride [K-Dur] 20 meq PO BID 08/19/21 metFORMIN [Glucophage] 1,000 mg PO DAILY 08/19/21 Objective - Vital Signs/Intake & Output Reviewed Vital Signs: Yes Vital Signs: Vital Signs x48h Temp Pulse Resp BP Pulse Ox 09/03/21 19:03 37.0 C 110 H 24 143/97 H 92 09/03/21 18:00 111 H 26 H 143/97 H 94 09/03/21 17:00 107 H 23 127/59 L 94 09/03/21 16:00 37 C 102 H 24 106/64 94 09/03/21 15:00 105 H 27 H 157/78 H 96 09/03/21 14:00 112 H 25 H 126/96 H 94 09/03/21 13:00 122 H 30 H 141/73 H 95 09/03/21 12:00 122 H 26 H 137/68 H 96 Intake & Output: Intake & Output 08/31/21 09/01/21 09/02/21 09/03/21 23:59 23:59 23:59 23:59 Intake Total 2220.000 9407 610 2372 Output Total 3335 1590 1667 1510 Balance -1115.000 -430 -1119 -80 - Objective General Appearance: positive: No acute distress, Other (morbidly obese white male who has no energy and lays upright position in bed.) - Lab Results Fish Bones: 09/04/21 05:55 09/04/21 06:33 Other Labs: Lab Results x24hrs 09/03/21 09/03/21 09/03/21 Range/Units 11:54 08:16 04:44 WBC (4.8-10.8) x10^3/uL RBC (4.70-6.10) 10^6/uL Hgb (14.0-18.0) g/dL Hct (42.0-52.0) % MCV (80.0-94.0) fL MCH (27.0-31.0) pg MCHC (32.0-36.0) g/dL RDW (12.0-15.0) % Plt Count (130-450) 10^3/uL MPV (7.4-11.4) fL Neut # (Auto) (1.5-6.6) 10^3/uL Lymph # (Auto) (1.5-3.5) 10^3/uL Sanders # (Auto) (0.0-1.0) 10^3/uL Eos # (Auto) (0.0-0.7) 10^3/uL Baso # (Auto) (0.0-0.1) 10^3/uL Absolute Nucleated RBC x10^3/uL Nucleated RBC % /100WBC VBG pH 7.373 (7.31-7.41) Ionized Calcium 1.14 L (1.15-1.33) mmol/L Sodium (135-145) mmol/L Potassium (3.5-5.0) mmol/L Chloride (101-111) mmol/L Carbon Dioxide (21-32) mmol/L Anion Gap (6-13) BUN (6-20) mg/dL Creatinine (0.6-1.2) mg/dL Estimated GFR (MDRD) (>89) Glucose (70-100) mg/dL POC Whole Bld Glucose 149 H 124 H (70 - 100) mg/dL Calcium (8.5-10.3) mg/dL Phosphorus (2.5-4.6) mg/dL Magnesium (1.7-2.8) mg/dL 09/03/21 09/03/21 09/02/21 Range/Units 04:44 04:44 20:55 WBC 8.1 (4.8-10.8) x10^3/uL RBC 2.92 L (4.70-6.10) 10^6/uL Hgb 8.5 L (14.0-18.0) g/dL Hct 28.5 L (42.0-52.0) % MCV 97.6 H (80.0-94.0) fL MCH 29.1 (27.0-31.0) pg MCHC 29.8 L (32.0-36.0) g/dL RDW 17.7 H (12.0-15.0) % Plt Count 265 (130-450) 10^3/uL MPV 10.3 (7.4-11.4) fL Neut # (Auto) 5.9 (1.5-6.6) 10^3/uL Lymph # (Auto) 1.3 L (1.5-3.5) 10^3/uL Sanders # (Auto) 0.7 (0.0-1.0) 10^3/uL Eos # (Auto) 0.2 (0.0-0.7) 10^3/uL Baso # (Auto) 0.0 (0.0-0.1) 10^3/uL Absolute Nucleated RBC 0.00 x10^3/uL Nucleated RBC % 0.0 /100WBC VBG pH (7.31-7.41) Ionized Calcium (1.15-1.33) mmol/L Sodium 147 H (135-145) mmol/L Potassium 3.5 5.1 H (3.5-5.0) mmol/L Chloride 109 (101-111) mmol/L Carbon Dioxide 27 (21-32) mmol/L Anion Gap 11.0 (6-13) BUN 21 H (6-20) mg/dL Creatinine 1.1 (0.6-1.2) mg/dL Estimated GFR (MDRD) 65 L (>89) Glucose 151 H (70-100) mg/dL POC Whole Bld Glucose (70 - 100) mg/dL Calcium 8.4 L (8.5-10.3) mg/dL Phosphorus 3.1 2.9 (2.5-4.6) mg/dL Magnesium 2.2 (1.7-2.8) mg/dL 09/02/21 09/02/21 Range/Units 20:55 20:07 WBC (4.8-10.8) x10^3/uL RBC (4.70-6.10) 10^6/uL Hgb (14.0-18.0) g/dL Hct (42.0-52.0) % MCV (80.0-94.0) fL MCH (27.0-31.0) pg MCHC (32.0-36.0) g/dL RDW (12.0-15.0) % Plt Count (130-450) 10^3/uL MPV (7.4-11.4) fL Neut # (Auto) (1.5-6.6) 10^3/uL Lymph # (Auto) (1.5-3.5) 10^3/uL Sanders # (Auto) (0.0-1.0) 10^3/uL Eos # (Auto) (0.0-0.7) 10^3/uL Baso # (Auto) (0.0-0.1) 10^3/uL Absolute Nucleated RBC x10^3/uL Nucleated RBC % /100WBC VBG pH 7.443 H (7.31-7.41) Ionized Calcium 1.07 L (1.15-1.33) mmol/L Sodium (135-145) mmol/L Potassium (3.5-5.0) mmol/L Chloride (101-111) mmol/L Carbon Dioxide (21-32) mmol/L Anion Gap (6-13) BUN (6-20) mg/dL Creatinine (0.6-1.2) mg/dL Estimated GFR (MDRD) (>89) Glucose (70-100) mg/dL POC Whole Bld Glucose 174 H (70 - 100) mg/dL Calcium (8.5-10.3) mg/dL Phosphorus (2.5-4.6) mg/dL Magnesium (1.7-2.8) mg/dL Assessment/Plan - Problem List (1) Acute and chronic respiratory failure with hypoxia Impression: This was secondary to COVID-19 pneumonia and Hx of COPD and possibly from obesity hypoventilation and OMERO. He was extubated and is on BIPAP at night alternating with n.c. and remains in the ICU due to BiPAP but he hates it. He completed 10 days of iv Decadron and he is on po Prednisone. He is also greater than 10 L positive in fluid balance since hospitalization. Received IV lasix until 08/31. Patient's home CPAP has been recalled by [employer]. A non-invasive home ventilator was ordered to treat his chronic respiratory failure. BIPAP was considered and deemed ineffective. We are now awaiting delivery. Hopefully he will remain stable enough to go to rehab. (2) Pneumonia due to COVID-19 virus Impression: This is the cause of his respiratory failure. He has now completed Remdesivir, Decadron and a course of iV antibiotics. When he had severe oozing of blood from his IJ line several days ago, his Lovenox 150 twice daily empiric was changed to a low 40 mg daily (prophylactic) dose. (3) Severe COPD A PFT report from several years ago showed he has severe COPD with FEV1/FVC ratio of 30% of predicted. His said he was a heavy smoker but has now quit about 7 years ago. He was not on home O2 before this admission. We will continue him on Prednisone 20 mg daily orally, today Day #6, now that he has finished a 10 day course of Decadron. We will plan to taper the Prednisone very slowly, over many weeks. We started him on inhaled Budesonide and Singulair and continue the inhaled albuterol nebulizer. There is no change today. Please see advanced care planning conversation I had with he and his under separate dictation. (4) Hypernatremia resolved This was likely related to getting IV diuretics and IV fluids containing saline. Will stopped saline and stopped Lasix and gave slow free water using D5W x another L between 09/01 and 09/02 and it worked but today sodium is up again. Will resume D5 at 83 cc/hr Recheck Na today and BMP daily (5) Skin tear on buttocks Pain is his biggest complaint since being extubated, because he is no longer sedated. We ordered topical care, turn and reposition and Fentanyl doses and Lidocaine patch for pain management. PT started working with sigrid to increase activity and more out of bed to chair and off of his skin tears. (6) Acute kidney injury superimposed on CKD Impression: His renal function continues to improve daily. On admission he was 39 and 2.5. Today he is 21 and 1.1. He was getting iv fluids plus ng liquid feeds. Ng feeds were stopped when he was extubated. We will continue to monitor his renal function and urine output. He still has the [place] because he has not been able to stand and bear weight to use a bedsdie commode. (7) Insulin dependent diabetes mellitus Impression: His blood glucose was exacerbated by the steroids. We started a diabetic diet, and on ss Insulin. we resumed his home Lantus, advanced pureed diet to a cc diet, soft texture, as he has no teeth. Yesterday he was 138, 155, 202, 175. Today he has been 124, 149, 181. (8) Morbid Obesity (BMI 50-59) As per Hx. (9) Sleep apnea on CPAP The was able to give detailed history of him being on a CPAP machine at home, but the machine was recalled 3 months ago, and the company has not sent him a new one yet despite many of her phone calls. This event was reported to RT. RT and Hospitalist are working on obtaining a proper device for him because of his diagnoses. (10) Iron deficiency anemia Impression: Hemoglobin is stable. We have resumed home oral iron. (11) Gram-positive bacteremia Impression: This is felt to be contaminant. Repeat cultures have been negative to date and the other set was negative. Antibiotics have been discontinued. (12) Hypotension Impression: Resolved, Levophed was turned off (13) Accelerated junctional rhythm Resolved. Possibly due to COVID heart We will continue to monitor his rhythm on telemetry. (14) Hyperkalemia Impression: Resolved
--- NOTE | 2021-09-03 19:38 | ADVANCE CARE PLANNING NOTE ---
Advance Care Planning - Planning Encounter Date: 09/03/21 Time: 19:37 Purpose: Establish care goals Parties in Attendance: His , patient, and hospitalist Decisional Capacity of the Patient: , Oriented, and endorses that he makes his own decisions - Diagnosis for Encounter (1) Acute and chronic respiratory failure with hypoxia Summary: A PFT report from several years ago showed he has severe COPD with FEV1/FVC ratio of 30% of predicted. His said he was a heavy smoker but has now quit about 7 years ago. He was not on home O2 before this admission. - Encounter Subjective/Patient's Story: He was born and raised in [place]. 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 [place]. He initially said 30 but his corrected him and said 10. They came to live here permanently in following [place] son who was [place] Son lives with them. He also has a daughter that lives in [place]. He states that the family is supposed to support him. They are supposed to take care of him. Up until 4 years ago he felt like he was living "normal life". The diagnosis of emphysema took him unawares when he became so short of breath that he needed to be transferred to [place]. Ever since then, he describes the quality of his life is severely diminished. He can no longer drive a car, dress himself without exertional shortness of breath, cannot do housework or yard work. His has to bathe him because he cannot bathe himself due to the shortness of breath. Only able to walk with his cane about 3 to 4 feet, from his recliner to his desk and back. Pt gets around by scooter. Per pt at baseline is on 2.5 liters of oxygen and uses a C-pap and nebulizer machine. Pt's lives in with his , son and daughter in law. Pt's 26 year old granddaughter lives in guest house behind the main house. Pt's helps pt with his showering and has a showering chair, she also helps pt dress. When pt's has to go to store or appointments her granddaughter helps with pt. Pt has a really supportive family, per she feels she has enough help at this time, they have two daughters that are coming up from [place] to also help. Per she does not feel that they have any SW needs at this time. SW left with SW office phone number incase she has any questions or needs that SW can help with. He keeps on repeating that he does not want anybody to "throw him under the bus". He wants to keep on living. He wants to keep on fighting. The only thing that he will not allow is permanent placement in a intermediate facility. He wants to stay at home with his family to take care of him. He does allow that his and kids may need to hire help her get help to take care of him but that is how he plans on doing it. He wants to keep on fighting and refuses to acknowledge that "this would get the best of him". He says he was working with physical therapy and cardiopulmonary rehab last year. Was going in twice a week. But then they "cut him off". I explained to him that he is describing that he achieved maximal visits under Medicare payment guidelines for cardiopulmonary rehab. And he seemed to understand. In the event of cardiopulmonary arrest, he wants intubation, CPR, cardioversion. If he has to stay on life support, keep him on life support. I asked him how long he would like that and he says that by then it would be his family's decision and he points to his and says "she will decide" Objective/Medical Story: This is a 76-year-old male with a past medical history significant for paroxysmal atrial fibrillation, COPD on 2 L of oxygen, CKD, OMERO on CPAP who presented to our emergency room this morning complaining of shortness of breath. History is obtained from the emergency department physician as the patient is intubated and I am unable to reach his as there was no answer when I called. The patient was reportedly diagnosed with Covid about 2 weeks ago. He has been feeling short of breath on and off and EMS was called this morning. Reportedly his oxygen saturations were in the 50s upon their arrival. The emergency department physician did speak with the patient's and she stated he was diagnosed weeks ago and he had a negative test about 2 days ago. She told him that he is a full code. In the emergency department, he was still hypoxic on nonrebreather. He was then placed on BiPAP but was still in quite a bit of distress and so he was in tubated. Chest x-ray suggested CHF. His labs revealed a white count of 12,000. D-dimer was over 1000. His creatinine is elevated at 2.5 compared to his baseline of 1.5. He was given ceftriaxone, azithromycin, Solu-Medrol and 150 mg of Lovenox. Medicine was then consulted for admission. - Past Medical History Cardiovascular: reports: Hypertension, High cholesterol, Atrial fibrillation Respiratory: reports: COPD, Sleep apnea, CPAP use Neuro: reports: None Endocrine/Autoimmune: reports: Type 2 diabetes GI: reports: GERD : reports: Renal insuffiency HEENT: reports: None Psych: reports: None Musculoskeletal: reports: Osteoarthritis Derm: reports: None MRSA Hx?: No - Past Surgical History General: reports: Appendectomy Ortho: reports: Knee replacement HEENT: reports: Cataracts, Tonsil/Adenoidectomy Goals of Care: He would like to return home. He would like to be as independent as possible. Goals are for him to be able to sit up in a chair, stand and pivot. We able to walk a few feet to his recliner, or to his bed. He would like to be a little bit more independent with bathing and toileting. He wants to stay at home. Refuses to be placed in a intermediate facility on a permanent basis. He would like to return to his exercise program with cardiopulmonary rehab. And he states that he will be cooperative with using the trilogy. Plan: At this time our plan is to discharge him to a intermediate facility for rehab and respiratory support with his trilogy. After that he will then return to his house with the support of his family. He is reluctantly agreeing that if he needs more more support they may have to do private duty hire. While he is willing to be rehospitalized, be intubated, receive resuscitation, he is not willing to put a timeline on how long to be on life support. If he and his family decide to keep him on life support, I did explain that he would have to be transferred to a facility that would be able to [place] a intermediate facility which is something he said he never wanted. He said that he and his family would have to talk about that and I encouraged him to do so. I also encouraged him to reregister with cardiopulmonary rehab when he gets home from the intermediate facility. Code Status: Attempt Resuscitation Time spent on advance care plannin minutes
[2021-09-03] MEDS: traZODone 50 MG TABLET PO SCH (21:15)
[2021-09-03] MEDS: ATORVASTATIN 40 MG TABLET PO SCH (21:15)
[2021-09-03] MEDS: GABAPENTIN 100 MG CAPSULE PO SCH (21:15)
[2021-09-03] MEDS: fentaNYL 100 MCG/2 ML VIAL IVP PRN (23:31)
[2021-09-04] MEDS: DEXTROSE 5% 1,000 ML IV SCH ×2 (00:59→12:46)
[2021-09-04] MEDS: ALBUTEROL NEB 2.5 MG/3 ML INH PRN ×2 (05:52→17:41)
[2021-09-04] MEDS: SODIUM CHLORIDE FLUSH 0.9% 10 ML SYRINGE IVP PRN ×2 (05:54→11:57)
[2021-09-04] MEDS: fentaNYL 100 MCG/2 ML VIAL IVP PRN (05:55)
[2021-09-04] MEDS: PANTOPRAZOLE 40 MG TABLET PO SCH (06:22)
[2021-09-04 06:28] LABS: BASOPHILS % (AUTO) 0.1 %; EOSINOPHILS # (AUTO) 0.2 10^3/uL (0.0-0.7); EOSINOPHILS % (AUTO) 2.7 %; HCT - HEMATOCRIT 28.7 % (42.0-52.0); HGB - HEMOGLOBIN 8.3 g/dL (14.0-18.0); LYMPHOCYTES # (AUTO) 1.7 10^3/uL (1.5-3.5); LYMPHOCYTES % (AUTO) 19.8 %; MEAN CORPUSCULAR HEMOGLOBIN 27.4 pg (27.0-31.0); MEAN CORPUSCULAR HGB CONC 28.9 g/dL (32.0-36.0); MEAN CORPUSCULAR VOLUME 94.7 fL (80.0-94.0); MEAN PLATELET VOLUME 10.2 fL (7.4-11.4); MONOCYTES # (AUTO) 0.6 10^3/uL (0.0-1.0); MONOCYTES % (AUTO) 7.6 %; NEUTROPHILS # (AUTO) 5.8 10^3/uL (1.5-6.6); NEUTROPHILS % (AUTO) 69.3 %; PLT - PLATELET COUNT 220 10^3/uL (130-450); RED BLOOD COUNT 3.03 10^6/uL (4.70-6.10); RED CELL DISTRIBUTION WIDTH 17.7 % (12.0-15.0); WHITE BLOOD COUNT 8.4 x10^3/uL (4.8-10.8)
[2021-09-04 07:05] LABS: CREATININE 1.1 mg/dL (0.6-1.2); POTASSIUM 3.7 mmol/L (3.5-5.0)
--- NOTE | 2021-09-04 07:21 | PROVIDER PROGRESS NOTE ---
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 No change in vitals signs. Leads that he was able to get up and step around the bed a couple of steps. He felt weak and wobbly but able to do it and it gave him great satisfaction. I spoke to him about needing rehab in a facility that is going to require Covid vaccination. Up until now he has been resistant to getting vaccinated. He states that if he gets him into the rehab facility to get home faster he is willing to do the vaccine. Current Medications - Current Medications Current Medications: Active Medications Acetaminophen (Acetaminophen 325 Mg Tablet) 650 mg PO Q4HR PRN PRN Reason: Pain or Fever > 38C (100.4F) Albuterol (Albuterol Neb 2.5 Mg/3 Ml) 2.5 mg INH Q4HR PRN PRN Reason: Wheezing Last Admin: 09/04/21 05:52 Dose: 2.5 mg Aspirin (Aspirin Ec 325 Mg Tablet) 325 mg PO DAILY [facility] Last Admin: 09/04/21 08:45 Dose: 325 mg Atorvastatin Calcium (Atorvastatin 40 Mg Tablet) 40 mg PO QPM [facility] Last Admin: 09/03/21 21:15 Dose: 40 mg Budesonide (Budesonide 0.5 Mg/2 Ml Neb) 0.5 mg INH RTBID [facility] Last Admin: 09/04/21 09:00 Dose: 0.5 mg Chlorhexidine Gluconate (Chlorhexidine Gluconate 15 Ml Udc) 15 ml PO BID PRN PRN Reason: ORAL CARE Last Admin: 09/02/21 11:02 Dose: 15 ml Cholecalciferol (Cholecalciferol 25 Mcg Tablet) 50 mcg PO DAILY [facility] Last Admin: 09/04/21 08:45 Dose: 50 mcg Diltiazem HCl (Diltiazem Cd 180 Mg Capsule) 180 mg PO DAILY [facility] Last Admin: 09/04/21 08:53 Dose: 180 mg Docusate Sodium (Docusate Sodium 250 Mg Capsule) 250 - 500 mg PO DAILY [facility] Last Admin: 09/04/21 11:50 Dose: Not Given Enoxaparin Sodium (Enoxaparin 40 Mg/0.4 Ml Syringe) 40 mg SUBQ DAILY [facility] Last Admin: 09/04/21 08:46 Dose: 40 mg Fentanyl (Fentanyl 100 Mcg/2 Ml Vial) 75 mcg IVP Q2HR PRN PRN Reason: PAIN Last Admin: 09/04/21 05:55 Dose: 75 mcg Ferrous Gluconate (Ferrous Gluconate 324 Mg Tablet) 324 mg PO DAILYWM [facility] Last Admin: 09/04/21 08:45 Dose: 324 mg Gabapentin (Gabapentin 100 Mg Capsule) 100 mg PO QPM [facility] Last Admin: 09/03/21 21:15 Dose: 100 mg Dextrose (D5w) 1,000 mls @ 83.333 mls/hr IV .Q12H [facility] Last Infusion: 09/04/21 08:01 Dose: 83.33 mls/hr Insulin Aspart (Insulin Aspart 300 Unit/3 Ml Pen) 3 - 11 unit SUBQ 0800, 1200,1700,2100 [facility]; Protocol Last Admin: 09/04/21 12:04 Dose: 5 unit Insulin Glargine (Insulin Glargine 300 Unit/3 Ml Pen) 40 unit SUBQ DAILY [facility] Last Admin: 09/04/21 11:52 Dose: 40 unit Lidocaine (Lidocaine Patch 5%) 1 patch TOP DAILY PRN PRN Reason: PAIN Last Admin: 08/31/21 12:36 Dose: 1 patch Mineral Oil (Min Oil/Dimethicon/Coconut Oil 92 Gm Tube) 1 applic TOP PRN PRN PRN Reason: Skin Care Last Admin: 09/04/21 11:58 Dose: 1 applic Multi-Ingredient Ointment (Zinc Oxide 20% Oint 30 Gm Tube) 1 applic TOP PRN PRN PRN Reason: Skin Care Last Admin: 09/01/21 05:33 Dose: 1 applic Ondansetron HCl (Ondansetron Odt 4 Mg Tablet) 4 mg TL Q6HR PRN PRN Reason: Nausea / Vomiting Pantoprazole Sodium (Pantoprazole 40 Mg Tablet) 40 mg PO QDAC [facility] Last Admin: 09/04/21 06:22 Dose: 40 mg Polyethylene Glycol (Polyethylene Glycol 3350 17 Gm Packet) 17 gm PO DAILY [facility] Last Admin: 09/04/21 11:50 Dose: Not Given Prednisone (Prednisone 20 Mg Tablet) 20 mg PO DAILYWM [facility] Last Admin: 09/04/21 08:45 Dose: 20 mg Senna (Senna 8.6 Mg Tablet) 8.6 - 17.2 mg PO DAILY [facility] Last Admin: 09/04/21 11:51 Dose: Not Given Sodium Chloride (Sodium Chloride Flush 0.9% 10 Ml Syringe) 10 ml IVP 0100,0900,1700 [facility] Last Admin: 09/04/21 08:58 Dose: 20 ml Sodium Chloride (Sodium Chloride Flush 0.9% 10 Ml Syringe) 20 ml IVP PRN PRN PRN Reason: After Blood Draw Last Admin: 09/04/21 11:57 Dose: 30 ml Trazodone HCl (Trazodone 50 Mg Tablet) 50 mg PO QPM [facility] Last Admin: 09/03/21 21:15 Dose: 50 mg Omeprazole 40 mg PO DAILY 03/06/13 Aspirin [Aspir-Shannen] 325 mg PO DAILY 01/17/14 Atorvastatin Calcium 40 mg PO QPM 04/22/19 Diltiazem HCl [Diltiazem ER] 180 mg PO DAILY 04/22/19 Gabapentin [Neurontin] 100 mg PO QPM 04/22/19 Ipratropium/Albuterol [Duoneb] 3 ml INH Q6H 04/22/19 Furosemide 80 mg PO BID 04/24/19 Fluticasone/Salmeterol [Advair 500-50 Diskus] 1 each INH BID 05/31/19 Insulin Glargine [Lantus Solostar] 0 - 58 unit IM DAILY 10/09/20 Ferrous Gluconate 324 mg PO .[id number] 08/19/21 Losartan [Cozaar] 50 mg PO DAILY 08/19/21 Potassium Chloride [K-Dur] 20 meq PO BID 08/19/21 metFORMIN [Glucophage] 1,000 mg PO DAILY 08/19/21 Objective - Vital Signs/Intake & Output Reviewed Vital Signs: Yes Vital Signs: Vital Signs x48h Pulse Pulse Resp BP Pulse Ox 09/04/21 07:00 90 17 132/52 H 96 09/04/21 06:00 112 H 25 H 134/64 H 92 09/04/21 05:55 116 H 20 09/04/21 05:00 108 H 26 H 134/70 H 94 09/04/21 04:00 103 H 24 126/62 93 09/04/21 03:00 112 H 21 97 09/04/21 00:26 106 H 22 124/72 93 Intake & Output: Intake & Output 09/01/21 09/02/21 09/03/21 09/04/21 23:59 23:59 23:59 23:59 Intake Total 8891 602 2295 1449.998 Output Total 1590 1667 1875 500 Balance -430 -1119 -445 949.998 - Objective General Appearance: positive: No acute distress, Alert, Other (He usually obese white male, alert, oriented, did not wear BiPAP last night. Unclear why. Patient did not refuse, but I am not clear if respiratory therapy did not give it to him.) Eyes Bilateral: positive: PERRL, EOMI ENT: positive: No signs of dehydration Neck: negative: Stiff neck Respiratory: positive: No respiratory distress, Other (Due to body habitus, diminished at bases and at lower axilla but otherwise clear. No increased respiratory effort with speaking). negative: Wheezes, Rales, Rhonchi Cardiovascular: positive: Regular rate & rhythm. negative: Gallop/S4, Friction rub Abdomen: positive: Non-tender, Nml bowel sounds, No distention, Other (Huge, large, abdominal pannus. 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 It all comes off very easily and flakes. Said he has had this disease since he was a child. If he can soak in a tub it all comes off. But then it returns in the summer) Extremities: positive: Pedal edema (That is getting less and less. You can see large folds of skin where he is getting less edema and more wrinkles. No open lesions.) Neurologic/Psychiatric: positive: Oriented x3, CN's nml (2-12), Motor nml (Except for moderate generalized weakness needing a lot of help) - Lab Results Fish Bones: 09/04/21 05:55 09/04/21 06:33 Other Labs: Lab Results x24hrs 09/04/21 09/04/21 09/03/21 Range/Units 06:33 05:55 20:23 WBC 8.4 (4.8-10.8) x10^3/uL RBC 3.03 L (4.70-6.10) 10^6/uL Hgb 8.3 L (14.0-18.0) g/dL Hct 28.7 L (42.0-52.0) % MCV 94.7 H (80.0-94.0) fL MCH 27.4 (27.0-31.0) pg MCHC 28.9 L (32.0-36.0) g/dL RDW 17.7 H (12.0-15.0) % Plt Count 220 (130-450) 10^3/uL MPV 10.2 (7.4-11.4) fL Neut # (Auto) 5.8 (1.5-6.6) 10^3/uL Lymph # (Auto) 1.7 (1.5-3.5) 10^3/uL Crisp # (Auto) 0.6 (0.0-1.0) 10^3/uL Eos # (Auto) 0.2 (0.0-0.7) 10^3/uL Baso # (Auto) 0.0 (0.0-0.1) 10^3/uL Absolute Nucleated RBC 0.00 x10^3/uL Nucleated RBC % 0.0 /100WBC Sodium 141 (135-145) mmol/L Potassium 3.7 (3.5-5.0) mmol/L Chloride 107 (101-111) mmol/L Carbon Dioxide 26 (21-32) mmol/L Anion Gap 8.0 (6-13) BUN 19 (6-20) mg/dL Creatinine 1.1 (0.6-1.2) mg/dL Estimated GFR (MDRD) 65 L (>89) Glucose 128 H (70-100) mg/dL POC Whole Bld Glucose 216 H (70 - 100) mg/dL Calcium 8.0 L (8.5-10.3) mg/dL 09/03/21 09/03/21 Range/Units 11:54 08:16 WBC (4.8-10.8) x10^3/uL RBC (4.70-6.10) 10^6/uL Hgb (14.0-18.0) g/dL Hct (42.0-52.0) % MCV (80.0-94.0) fL MCH (27.0-31.0) pg MCHC (32.0-36.0) g/dL RDW (12.0-15.0) % Plt Count (130-450) 10^3/uL MPV (7.4-11.4) fL Neut # (Auto) (1.5-6.6) 10^3/uL Lymph # (Auto) (1.5-3.5) 10^3/uL Crisp # (Auto) (0.0-1.0) 10^3/uL Eos # (Auto) (0.0-0.7) 10^3/uL Baso # (Auto) (0.0-0.1) 10^3/uL Absolute Nucleated RBC x10^3/uL Nucleated RBC % /100WBC Sodium (135-145) mmol/L Potassium (3.5-5.0) mmol/L Chloride (101-111) mmol/L Carbon Dioxide (21-32) mmol/L Anion Gap (6-13) BUN (6-20) mg/dL Creatinine (0.6-1.2) mg/dL Estimated GFR (MDRD) (>89) Glucose (70-100) mg/dL POC Whole Bld Glucose 149 H 124 H (70 - 100) mg/dL Calcium (8.5-10.3) mg/dL Assessment/Plan - Problem List (1) Acute and chronic respiratory failure with hypoxia Impression: Resolved. This was secondary to COVID-19 pneumonia and Hx of COPD and possibly from obesity hypoventilation and OMERO. He was extubated and is on BIPAP at night alternating with n.c. and remains in the ICU due to BiPAP but he hates it. Long conversation with him 09/03/21 w at bedside explaining to him what his pathophysiology is and why he needs this machine. Reluctantly willing to us it if he can "get back his life". He completed 10 days of iv Decadron and he is on po Prednisone. He was also greater than 10 L positive in fluid balance since hospitalization. Received IV lasix until 08/31 then stopped. Max weight was 167 kg and now 153 kg Patient's home CPAP has been recalled by [facility]. A non-invasive home ventilator was ordered to treat his chronic respiratory failure. BIPAP was considered and deemed ineffective. We are now awaiting delivery. Hopefully he will remain stable enough to go to rehab. At this point in time he is medically stable for discharge. The only thing we are awaiting his delivery of the trilogy, and his vaccination. Once he gets his vaccine, he needs to wait 14 days before a care facility will take him. (2) Pneumonia due to COVID-19 virus Impression: This is the cause of his respiratory failure. He has now completed Remdesivir, Decadron and a course of iV antibiotics. When he had severe oozing of blood from his IJ line several days ago, his Lovenox 150 twice daily empiric was changed to a low 40 mg daily (prophylactic) dose. (3) Severe COPD A PFT report from several years ago showed he has severe COPD with FEV1/FVC ratio of 30% of predicted. His said he was a heavy smoker but has now quit about 7 years ago. He was not on home O2 before this admission. He has been on Prednisone 20 mg daily orally once he has finished a 10 day course of Decadron. We will plan to taper the Prednisone very slowly, over many weeks. Today is day #7 of prednisone 20 mg. tomorrow will drop to 15 mg/day for a week, and should be tapered by 5 mg every week. We started him on inhaled Budesonide and Singulair and continue the inhaled albuterol nebulizer. There is no change today. Please see advanced care planning conversation I had with he and his under separate dictation 09/03/21. (4) Hypernatremia resolved This was likely related to getting IV diuretics and IV fluids containing saline. Will stopped saline and stopped Lasix and gave slow free water using D5W x another L between 09/01 and 09/02 and it worked but sodium went up again 09/03 so back on D5 83 cc/hr. Recheck Na today and BMP daily (5) Skin tear on buttocks Pain is his biggest complaint since being extubated, because he is no longer sedated. We ordered topical care, turn and reposition and Fentanyl doses and Lidocaine patch for pain management. PT started working with sigrid to increase activity and more out of bed to chair and off of his skin tears. (6) Acute kidney injury superimposed on CKD Impression: His renal function continues to improve daily. On admission he was 39 and 2.5. Today he is 19 and 1.1. He was getting iv fluids plus ng liquid feeds. Ng feeds were stopped when he was extubated. We will continue to monitor his renal function and urine output. He still has the [place] because he has not been able to stand and bear weight to use a bedsdie commode. (7) Insulin dependent diabetes mellitus Impression: His blood glucose was exacerbated by the steroids. We started a diabetic diet, and on ss Insulin. 09/01/21 we resumed his home Lantus, advanced pureed diet to a cc diet, soft texture, as he has no teeth. Yesterday he was 124, 149, 181 216. This morning he is 127. Eating 25 to 50% of his food. (8) Morbid Obesity (BMI 50-59) As per Hx. (9) Sleep apnea on CPAP The was able to give detailed history of him being on a CPAP machine at home, but the machine was recalled 3 months ago, and the company has not sent h im a new one yet despite many of her phone calls. This event was reported to RT. RT and Hospitalist are working on obtaining a proper device for him because of his diagnoses. (10) Iron deficiency anemia Impression: Hemoglobin is stable. We have resumed home oral iron. (11) Gram-positive bacteremia Impression: This is felt to be contaminant. Repeat cultures have been negative to date and the other set was negative. Antibiotics have been discontinued. (12) Hypotension Impression: Resolved, Levophed was turned off (13) Accelerated junctional rhythm Resolved. Possibly due to COVID heart We will continue to monitor his rhythm on telemetry. (14) Hyperkalemia Impression: Resolved
[2021-09-04 07:57] LABS: MAGNESIUM 2.1 mg/dL (1.7-2.8); PHOSPHORUS 3.1 mg/dL (2.5-4.6)
[2021-09-04] MEDS ORDERED: POTASSIUM CHLOR 10 MEQ/100 ML 10 MEQ/100 ML BAG IV SCH (08:00)
[2021-09-04] MEDS: INSULIN ASPART 300 UNIT/3 ML PEN SUBQ SCH ×4 (08:02→21:10)
[2021-09-04] MEDS: MIN OIL/DIMETHICON/COCONUT OIL 92 GM TUBE TOP PRN ×2 (08:44→11:58)
[2021-09-04] MEDS: FERROUS GLUCONATE 324 MG TABLET PO SCH (08:45)
[2021-09-04] MEDS: predniSONE 20 MG TABLET PO SCH (08:45)
[2021-09-04] MEDS: CHOLECALCIFEROL 25 MCG TABLET PO SCH (08:45)
[2021-09-04] MEDS: ASPIRIN EC 325 MG TABLET PO SCH (08:45)
[2021-09-04] MEDS: ENOXAPARIN 40 MG/0.4 ML SYRINGE SUBQ SCH (08:46)
[2021-09-04] MEDS: diltiaZEM CD 180 MG CAPSULE PO SCH (08:53)
[2021-09-04] MEDS: SODIUM CHLORIDE FLUSH 0.9% 10 ML SYRINGE IVP SCH ×2 (08:58→20:56)
[2021-09-04] MEDS: BUDESONIDE 0.5 MG/2 ML NEB INH SCH ×2 (09:00→17:41)
[2021-09-04] MEDS ORDERED: POTASSIUM CHLORIDE 20 MEQ TABLET PO ONE (09:00)
[2021-09-04] MEDS: DOCUSATE SODIUM 250 MG CAPSULE PO SCH (11:50)
[2021-09-04] MEDS: polyethylene glycoL 3350 17 GM PACKET PO SCH (11:50)
[2021-09-04] MEDS: SENNA 8.6 MG TABLET PO SCH (11:51)
[2021-09-04] MEDS: INSULIN GLARGINE 300 UNIT/3 ML PEN SUBQ SCH (11:52)
[2021-09-04] MEDS ORDERED: COVID-19 VAC,AD26(JANSSEN)/PF 0.5 ML SYRINGE IM ONE (12:00)
[2021-09-04 12:23] LABS: CALCIUM, IONIZED 1.09 mmol/L (1.15-1.33); VBG PH 7.363 (7.31-7.41)
[2021-09-04] MEDS: CALCIUM CARBONATE CHEW 500 MG TABLET PO SCH ×2 (16:12→20:26)
[2021-09-04] MEDS: ACETAMINOPHEN 325 MG TABLET PO PRN (16:55)
[2021-09-04] MEDS: ATORVASTATIN 40 MG TABLET PO SCH (20:55)
[2021-09-04] MEDS: GABAPENTIN 100 MG CAPSULE PO SCH (20:55)
[2021-09-04] MEDS: traZODone 50 MG TABLET PO SCH (20:55)
[2021-09-05] MEDS: SODIUM CHLORIDE FLUSH 0.9% 10 ML SYRINGE IVP SCH ×3 (01:37→22:03)
[2021-09-05] MEDS ORDERED: DEXTROSE 5% 1,000 ML IV SCH (02:00)
[2021-09-05 05:50] LABS: BASOPHILS % (AUTO) 0.1 %; EOSINOPHILS # (AUTO) 0.2 10^3/uL (0.0-0.7); EOSINOPHILS % (AUTO) 2.7 %; HCT - HEMATOCRIT 27.3 % (42.0-52.0); HGB - HEMOGLOBIN 8.1 g/dL (14.0-18.0); LYMPHOCYTES # (AUTO) 1.4 10^3/uL (1.5-3.5); LYMPHOCYTES % (AUTO) 19.8 %; MEAN CORPUSCULAR HEMOGLOBIN 28.5 pg (27.0-31.0); MEAN CORPUSCULAR HGB CONC 29.7 g/dL (32.0-36.0); MEAN CORPUSCULAR VOLUME 96.1 fL (80.0-94.0); MEAN PLATELET VOLUME 9.6 fL (7.4-11.4); MONOCYTES # (AUTO) 0.5 10^3/uL (0.0-1.0); MONOCYTES % (AUTO) 7.7 %; NEUTROPHILS # (AUTO) 4.8 10^3/uL (1.5-6.6); NEUTROPHILS % (AUTO) 69.1 %; PLT - PLATELET COUNT 203 10^3/uL (130-450); RED BLOOD COUNT 2.84 10^6/uL (4.70-6.10); RED CELL DISTRIBUTION WIDTH 17.9 % (12.0-15.0)
[2021-09-05] MEDS: BUDESONIDE 0.5 MG/2 ML NEB INH SCH ×2 (05:52→17:49)
[2021-09-05 05:57] LABS: CALCIUM 7.9 mg/dL (8.5-10.3); POTASSIUM 3.6 mmol/L (3.5-5.0)
[2021-09-05 06:19] LABS: CALCIUM, IONIZED 1.05 mmol/L (1.15-1.33); VBG PH 7.399 (7.31-7.41)
[2021-09-05 08:42] LABS: MAGNESIUM 2.3 mg/dL (1.7-2.8); PHOSPHORUS 4.2 mg/dL (2.5-4.6)
[2021-09-05] MEDS: HYDROmorphone 0.5 MG/0.5 ML SYRINGE IVP PRN ×2 (09:54→12:07)
[2021-09-05] MEDS: PANTOPRAZOLE 40 MG TABLET PO SCH (10:01)
[2021-09-05] MEDS: CALCIUM CARBONATE CHEW 500 MG TABLET PO SCH ×2 (10:02→13:30)
[2021-09-05] MEDS: MULTIVITAMIN W/MINERALS TABLET PO SCH (10:03)
[2021-09-05] MEDS: predniSONE 20 MG TABLET PO SCH (10:04)
[2021-09-05] MEDS: ACETAMINOPHEN 325 MG TABLET PO PRN (10:04)
[2021-09-05] MEDS: ASPIRIN EC 325 MG TABLET PO SCH (10:04)
[2021-09-05] MEDS: CHOLECALCIFEROL 25 MCG TABLET PO SCH (10:04)
[2021-09-05] MEDS: diltiaZEM CD 180 MG CAPSULE PO SCH (10:05)
[2021-09-05] MEDS: INSULIN ASPART 300 UNIT/3 ML PEN SUBQ SCH ×4 (10:05→22:04)
[2021-09-05] MEDS: FERROUS GLUCONATE 324 MG TABLET PO SCH (10:05)
[2021-09-05] MEDS: DOCUSATE SODIUM 250 MG CAPSULE PO SCH (10:06)
[2021-09-05] MEDS: ENOXAPARIN 40 MG/0.4 ML SYRINGE SUBQ SCH (10:06)
[2021-09-05] MEDS: INSULIN GLARGINE 300 UNIT/3 ML PEN SUBQ SCH (10:06)
[2021-09-05] MEDS: polyethylene glycoL 3350 17 GM PACKET PO SCH (10:07)
[2021-09-05] MEDS: SENNA 8.6 MG TABLET PO SCH (10:08)
[2021-09-05] MEDS: CHLORHEXIDINE GLUCONATE 15 ML UDC PO PRN (10:38)
[2021-09-05] MEDS: ZINC OXIDE 20% OINT 30 GM TUBE TOP PRN (10:39)
[2021-09-05] MEDS ORDERED: POTASSIUM CHLORIDE 20 MEQ TABLET PO ONE (12:54)
--- NOTE | 2021-09-05 17:41 | PROVIDER PROGRESS NOTE ---
Subjective - Prog Note Date Prog Note Date: 09/05/21 Prog Note Time: 17:49 - Subjective Pt reports feeling: Improved Subjective: He is very proud of himself. He was able to lift up his body using the grab bars above his bed. His main complaint is his buttock pain from the skin breakdown. He is miserable. Other than that he is trying to eat more. He is eating 25 to 50% of his food. We are awaiting delivery of his noninvasive ventilator mask. From there he can then go to the [facility] facility for rehab. Current Medications - Current Medications Current Medications: Active Medications Acetaminophen (Acetaminophen 325 Mg Tablet) 650 mg PO Q4HR PRN PRN Reason: Pain or Fever > 38C (100.4F) Last Admin: 09/05/21 10:04 Dose: 650 mg Albuterol (Albuterol Neb 2.5 Mg/3 Ml) 2.5 mg INH Q4HR PRN PRN Reason: Wheezing Last Admin: 09/05/21 17:49 Dose: 2.5 mg Aspirin (Aspirin Ec 325 Mg Tablet) 325 mg PO DAILY [facility] Last Admin: 09/05/21 10:04 Dose: 325 mg Atorvastatin Calcium (Atorvastatin 40 Mg Tablet) 40 mg PO QPM [facility] Last Admin: 09/04/21 20:55 Dose: 40 mg Budesonide (Budesonide 0.5 Mg/2 Ml Neb) 0.5 mg INH RTBID [facility] Last Admin: 09/05/21 17:49 Dose: 0.5 mg Chlorhexidine Gluconate (Chlorhexidine Gluconate 15 Ml Udc) 15 ml PO BID PRN PRN Reason: ORAL CARE Last Admin: 09/05/21 10:38 Dose: 15 ml Cholecalciferol (Cholecalciferol 25 Mcg Tablet) 50 mcg PO DAILY [facility] Last Admin: 09/05/21 10:04 Dose: 50 mcg Diltiazem HCl (Diltiazem Cd 180 Mg Capsule) 180 mg PO DAILY [facility] Last Admin: 09/05/21 10:05 Dose: 180 mg Docusate Sodium (Docusate Sodium 250 Mg Capsule) 250 - 500 mg PO DAILY [facility] Last Admin: 09/05/21 10:06 Dose: Not Given Enoxaparin Sodium (Enoxaparin 40 Mg/0.4 Ml Syringe) 40 mg SUBQ DAILY [facility] Last Admin: 09/05/21 10:06 Dose: 40 mg Ferrous Gluconate (Ferrous Gluconate 324 Mg Tablet) 324 mg PO DAILYWM [facility] Last Admin: 09/05/21 10:05 Dose: 324 mg Gabapentin (Gabapentin 100 Mg Capsule) 100 mg PO QPM [facility] Last Admin: 09/04/21 20:55 Dose: 100 mg Hydromorphone HCl (Hydromorphone 0.5 Mg/0.5 Ml Syringe) 0.5 mg IVP Q2H PRN PRN Reason: PAIN Last Admin: 09/05/21 12:07 Dose: 0.5 mg Dextrose (D5w) 1,000 mls @ 0 mls/hr IV .Q0M [facility] Last Admin: 09/05/21 01:34 Dose: 30 mls/hr Insulin Aspart (Insulin Aspart 300 Unit/3 Ml Pen) 3 - 11 unit SUBQ 0800,1200,1700,2100 [facility]; Protocol Last Admin: 09/05/21 12:12 Dose: 3 unit Insulin Glargine (Insulin Glargine 300 Unit/3 Ml Pen) 40 unit SUBQ DAILY [facility] Last Admin: 09/05/21 10:06 Dose: 40 unit Lidocaine (Lidocaine Patch 5%) 1 patch TOP DAILY PRN PRN Reason: PAIN Last Admin: 08/31/21 12:36 Dose: 1 patch Mineral Oil (Min Oil/Dimethicon/Coconut Oil 92 Gm Tube) 1 applic TOP PRN PRN PRN Reason: Skin Care Last Admin: 09/04/21 11:58 Dose: 1 applic Multi-Ingredient Ointment (Zinc Oxide 20% Oint 30 Gm Tube) 1 applic TOP PRN PRN PRN Reason: Skin Care Last Admin: 09/05/21 10:39 Dose: 1 applic Multivitamins/Minerals (Multivitamin W/Minerals Tablet) 1 tab PO DAILYWM [facility] Last Admin: 09/05/21 10:03 Dose: 1 tab Ondansetron HCl (Ondansetron Odt 4 Mg Tablet) 4 mg TL Q6HR PRN PRN Reason: Nausea / Vomiting Pantoprazole Sodium (Pantoprazole 40 Mg Tablet) 40 mg PO QDAC [facility] Last Admin: 09/05/21 10:01 Dose: 40 mg Polyethylene Glycol (Polyethylene Glycol 3350 17 Gm Packet) 17 gm PO DAILY [facility] Last Admin: 01/07/22 10:07 Dose: Not Given Prednisone (Prednisone 20 Mg Tablet) 20 mg PO DAILYWM [facility] Last Admin: 09/05/21 10:04 Dose: 20 mg Senna (Senna 8.6 Mg Tablet) 8.6 - 17.2 mg PO DAILY [facility] Last Admin: 09/05/21 10:08 Dose: Not Given Sodium Chloride (Sodium Chloride Flush 0.9% 10 Ml Syringe) 10 ml IVP 0100,0900,1700 [facility] Last Admin: 09/05/21 09:55 Dose: 20 ml Sodium Chloride (Sodium Chloride Flush 0.9% 10 Ml Syringe) 20 ml IVP PRN PRN PRN Reason: After Blood Draw Last Admin: 09/04/21 11:57 Dose: 30 ml Trazodone HCl (Trazodone 50 Mg Tablet) 50 mg PO QPM [facility] Last Admin: 09/04/21 20:55 Dose: 50 mg Omeprazole 40 mg PO DAILY 03/06/13 Aspirin [Aspir-Shannen] 325 mg PO DAILY 01/17/14 Atorvastatin Calcium 40 mg PO QPM 04/22/19 Diltiazem HCl [Diltiazem ER] 180 mg PO DAILY 04/22/19 Gabapentin [Neurontin] 100 mg PO QPM 04/22/19 Ipratropium/Albuterol [Duoneb] 3 ml INH Q6H 04/22/19 Furosemide 80 mg PO BID 04/24/19 Fluticasone/Salmeterol [Advair 500-50 Diskus] 1 each INH BID 05/31/19 Insulin Glargine [Lantus Solostar] 0 - 58 unit IM DAILY 10/09/20 Ferrous Gluconate 324 mg PO .[id number] 08/19/21 Losartan [Cozaar] 50 mg PO DAILY 08/19/21 Potassium Chloride [K-Dur] 20 meq PO BID 08/19/21 metFORMIN [Glucophage] 1,000 mg PO DAILY 08/19/21 Objective - Vital Signs/Intake & Output Reviewed Vital Signs: Yes Vital Signs: Vital Signs x48h Temp Pulse Resp BP Pulse Ox 09/05/21 15:00 99 24 137/78 H 95 09/05/21 13:48 123 H 16 94/73 94 09/05/21 13:00 111 H 21 109/71 92 09/05/21 12:00 36.8 C 125 H 17 129/77 89 L 09/05/21 11:00 107 H 24 127/61 93 09/05/21 10:00 120 H 22 130/69 96 Intake & Output: Intake & Output 09/02/21 09/03/21 09/04/21 09/05/21 23:59 23:59 23:59 23:59 Intake Total 548 1430 3124.693 1297.234 Output Total 1667 1875 2166 1001 Balance -1119 -445 958.693 296.234 - Objective General Appearance: positive: Alert, Mild distress (From buttock pain), Other (Severely overweight, super obese, white male at 5 feet 7 inches tall weighs 150.5 kg. Weight on admission was 149. He peaked at 167 kg. Yesterday he was 153 kg. Today 150.5.) Eyes Bilateral: positive: PERRL, EOMI ENT: positive: Pharynx nml Neck: positive: No JVD. negative: Stiff neck Respiratory: positive: No respiratory distress, Other (Base sounds diminished. But no increased respiratory effort. Comfortable.). negative: Wheezes, Rales, Rhonchi Cardiovascular: positive: Regular rate & rhythm. negative: Gallop/S4, Friction rub Abdomen: positive: Non-tender, Nml bowel sounds, No distention, Other (Hugely obese abdominal pannus) Skin: positive: Warm, Dry, Other (Ichthyosis with a brown, peeling, skin layer. Underneath it is normal pink skin. He says he has had this since he was a boy.) Extremities: positive: Non-tender, Full ROM, Pedal edema Neurologic/Psychiatric: positive: Oriented x3, CN's nml (2-12), Motor nml - Lab Results Fish Bones: 09/05/21 04:51 09/05/21 04:51 Other Labs: Lab Results x24hrs 09/05/21 09/05/21 09/05/21 Range/Units 16:38 11:15 07:50 WBC (4.8-10.8) x10^3/uL RBC (4.70-6.10) 10^6/uL Hgb (14.0-18.0) g/dL Hct (42.0-52.0) % MCV (80.0-94.0) fL MCH (27.0-31.0) pg MCHC (32.0-36.0) g/dL RDW (12.0-15.0) % Plt Count (130-450) 10^3/uL MPV (7.4-11.4) fL Neut # (Auto) (1.5-6.6) 10^3/uL Lymph # (Auto) (1.5-3.5) 10^3/uL [place] # (Auto) (0.0-1.0) 10^3/uL Eos # (Auto) (0.0-0.7) 10^3/uL Baso # (Auto) (0.0-0.1) 10^3/uL Absolute Nucleated RBC x10^3/uL Nucleated RBC % /100WBC VBG pH (7.31-7.41) Ionized Calcium (1.15-1.33) mmol/L Sodium (135-145) mmol/L Potassium (3.5-5.0) mmol/L Chloride (101-111) mmol/L Carbon Dioxide (21-32) mmol/L Anion Gap (6-13) BUN (6-20) mg/dL Creatinine (0.6-1.2) mg/dL Estimated GFR (MDRD) (>89) Glucose (70-100) mg/dL POC Whole Bld Glucose 148 H 153 H 94 (70 - 100) mg/dL Calcium (8.5-10.3) mg/dL Phosphorus (2.5-4.6) mg/dL Magnesium (1.7-2.8) mg/dL 09/05/21 09/05/21 09/05/21 Range/Units 04:51 04:51 04:51 WBC (4.8-10.8) x10^3/uL RBC (4.70-6.10) 10^6/uL Hgb (14.0-18.0) g/dL Hct (42.0-52.0) % MCV (80.0-94.0) fL MCH (27.0-31.0) pg MCHC (32.0-36.0) g/dL RDW (12.0-15.0) % Plt Count (130-450) 10^3/uL MPV (7.4-11.4) fL Neut # (Auto) (1.5-6.6) 10^3/uL Lymph # (Auto) (1.5-3.5) 10^3/uL [place] # (Auto) (0.0-1.0) 10^3/uL Eos # (Auto) (0.0-0.7) 10^3/uL Baso # (Auto) (0.0-0.1) 10^3/uL Absolute Nucleated RBC x10^3/uL Nucleated RBC % /100WBC VBG pH 7.399 (7.31-7.41) Ionized Calcium 1.05 L (1.15-1.33) mmol/L Sodium 141 (135-145) mmol/L Potassium 3.6 (3.5-5.0) mmol/L Chloride 106 (101-111) mmol/L Carbon Dioxide 27 (21-32) mmol/L Anion Gap 8.0 (6-13) BUN 16 (6-20) mg/dL Creatinine 1.0 (0.6-1.2) mg/dL Estimated GFR (MDRD) 73 L (>89) Glucose 108 H (70-100) mg/dL POC Whole Bld Glucose (70 - 100) mg/dL Calcium 7.9 L (8.5-10.3) mg/dL Phosphorus 4.2 (2.5-4.6) mg/dL Magnesium 2.3 (1.7-2.8) mg/dL 09/05/21 09/04/21 Range/Units 04:51 20:49 WBC 7.0 (4.8-10.8) x10^3/uL RBC 2.84 L (4.70-6.10) 10^6/uL Hgb 8.1 L (14.0-18.0) g/dL Hct 27.3 L (42.0-52.0) % MCV 96.1 H (80.0-94.0) fL MCH 28.5 (27.0-31.0) pg MCHC 29.7 L (32.0-36.0) g/dL RDW 17.9 H (12.0-15.0) % Plt Count 203 (130-450) 10^3/uL MPV 9.6 (7.4-11.4) fL Neut # (Auto) 4.8 (1.5-6.6) 10^3/uL Lymph # (Auto) 1.4 L (1.5-3.5) 10^3/uL [place] # (Auto) 0.5 (0.0-1.0) 10^3/uL Eos # (Auto) 0.2 (0.0-0.7) 10^3/uL Baso # (Auto) 0.0 (0.0-0.1) 10^3/uL Absolute Nucleated RBC 0.00 x10^3/uL Nucleated RBC % 0.0 /100WBC VBG pH (7.31-7.41) Ionized Calcium (1.15-1.33) mmol/L Sodium (135-145) mmol/L Potassium (3.5-5.0) mmol/L Chloride (101-111) mmol/L Carbon Dioxide (21-32) mmol/L Anion Gap (6-13) BUN (6-20) mg/dL Creatinine (0.6-1.2) mg/dL Estimated GFR (MDRD) (>89) Glucose (70-100) mg/dL POC Whole Bld Glucose 202 H (70 - 100) mg/dL Calcium (8.5-10.3) mg/dL Phosphorus (2.5-4.6) mg/dL Magnesium (1.7-2.8) mg/dL Assessment/Plan - Problem List (1) Physical deconditioning Impression: This gentleman has really had decreased mobility to begin with. 4 years ago, a sudden exacerbation of COPD resulted in a prolonged hospital stay at [place]. Since that time he is gradually increased weight, been less and less active, and more more sedentary. He can no longer drive a car. He needs his to help him get dressed. Cannot do any housework or yard work the way he used to. His has to help him bathe. He was walking with a cane 3 to 4 feet. He could walk from his recliner to his desk and back to the recliner again. Would get around with a scooter if he had to lose longer distances. At baseline he was on 2-1/2 L of oxygen and used a CPAP and nebulizer machine at home. He has a lot of help from his , son and [id number], and granddaughter. He gets help with showering and has a shower chair. With this hospitalization, he has become severely deconditioned. He is not at the baseline he was before his Covid illness. He will need strengthening exercises and rehabilitation before he can get home.He has been working with physical therapy, and is proud of being able to at least sit up today. He use the grab bars above his bed to lift himself up and reposition himself. He said that was a major accomplishment. Plan: To continue to work with physical therapy. Transferred from ICU to [facility]. Covid vaccine done yesterday. Await noninvasive ventilator support for Wednesday of next week (today is Wednesday). Hopefully he can be discharged to [facility] facility for rehab on Wednesday. (2) Chronic respiratory failure with hypoxia. The acute phase has resolved. Impression: The decompensation was secondary to COVID-19 pneumonia and Hx of COPD and possibly from obesity hypoventilation and OMERO. He was extubated and is on BIPAP at night alternating with n.c. and remains in the ICU due to BiPAP but he hates it. Long conversation with him 09/03/21 w at bedside explaining to him what his pathophysiology is and why he needs this machine. Reluctantly willing to us it if he can "get back his life". He completed 10 days of iv Decadron and he is on po Prednisone. He was also greater than 10 L positive in fluid balance since hospitalization. Received IV lasix until 08/31 then stopped. Max weight was 167 kg and now 153 kg Patient's home CPAP has been recalled by [facility]. A non-invasive home ventilator was ordered to treat his chronic respiratory failure. BIPAP was considered and deemed ineffective. We are now awaiting delivery. Hopefully he will remain stable enough to go to rehab. At this point in time he is medically stable for discharge. The only thing we are awaiting his delivery of Noninvasive ventilator. We had thought it was going to be trilogy but respiratory therapy tells me is a different machine. Delivery will hopefully be next Wednesday. From there he will go to a [facility]pc facility for rehab. He is very motivated. Looking forward to getting stronger and then going home. Once he is home he plans on joining cardiopulmonary rehab. Once he is finished with cardiopulmonary rehab wants to stay active with the therapy and exercises they teach him. (3) Pneumonia due to COVID-19 virus resolved. Impression: This is the cause of his respiratory failure. He has now completed Remdesivir, Decadron and a course of iV antibiotics. When he had severe oozing of blood from his IJ line several days ago, his Lovenox 150 twice daily empiric was changed to a low 40 mg daily (prophylactic) dose. (4) Severe COPD A PFT report from several years ago showed he has severe COPD with FEV1/FVC ratio of 30% of predicted. His said he was a heavy smoker but has now quit about 7 years ago. He was not on home O2 before this admission. He has been on Prednisone 20 mg daily orally once he has finished a 10 day course of Decadron. We will plan to taper the Prednisone very slowly, over many weeks. Today is day #7 of prednisone 20 mg. tomorrow will drop to 15 mg/day for a week, and should be tapered by 5 mg every week. We started him on inhaled Budesonide and Singulair and continue the inhaled albuterol nebulizer. There is no change today. Please see advanced care planning conversation I had with he and his under separate dictation 09/03/21. (5) Hypernatremia resolved This was likely related to getting IV diuretics and IV fluids containing saline. Will stopped saline and stopped Lasix and gave slow free water using D5W x another L between 09/01 and 09/02 and it worked but sodium went up again 09/03 so back on D5 83 cc/hr. Recheck BMP daily (6) Skin tear on buttocks Pain is his biggest complaint since being extubated, because he is no longer sedated. We ordered topical care, turn and reposition and Fentanyl doses and Lidocaine patch for pain management. PT started working with sigrid to increase activity and more out of bed to chair and off of his skin tears. I have asked nursing section supervisor to see if we can get a air mattress form. [facility] has been contacted and hopefully we can get a bed soon. (6) Acute kidney injury superimposed on CKD Impression: His renal function continues to improve daily. On admission he was 39 and 2.5. Today he is 16 and 1.0. He was getting iv fluids plus ng liquid feeds. Ng feeds were stopped when he was extubated. We will continue to monitor his renal function and urine output. He still has the [place] because he has not been able to stand and bear weight to use a bedsdie commode. (7) Insulin dependent diabetes mellitus Impression: His blood glucose was exacerbated by the steroids. We started a diabetic diet, and on ss Insulin. 09/01/21 we resumed his home Lantus, advanced pureed diet to a cc diet, soft texture, as he has no teeth. Yesterday his glucose was 250, 150, 200. Today he is 200, 240, 160. (8) Morbid Obesity (BMI 50-59) As per Hx. (9) Sleep apnea on CPAP The was able to give detailed history of him being on a CPAP machine at home, but the machine was recalled 3 months ago, and the [employer] has not sent him a new one yet despite many of her phone calls. This event was reported to RT. RT and Hospitalist are working on obtaining a proper device for him because of his diagnoses.We have worked with a [employer]. Ho pefully he will his noninvasive ventilator will get here on Wednesday and we will then put that on him. (10) Iron deficiency anemia Impression: Hemoglobin is stable. We have resumed home oral iron. (11) Gram-positive bacteremia Impression: This is felt to be contaminant. Repeat cultures have been negative to date and the other set was negative. Antibiotics have been discontinued. (12) Hypotension Impression: Resolved, Levophed was turned off (13) Accelerated junctional rhythm Resolved. Possibly due to COVID heart We will continue to monitor his rhythm on telemetry. (14) Hyperkalemia Impression: Resolved
[2021-09-05] MEDS: ALBUTEROL NEB 2.5 MG/3 ML INH PRN (17:49)
[2021-09-05] MEDS: GABAPENTIN 100 MG CAPSULE PO SCH (22:03)
[2021-09-05] MEDS: ATORVASTATIN 40 MG TABLET PO SCH (22:03)
[2021-09-05] MEDS: traZODone 50 MG TABLET PO SCH (22:03)
[2021-09-06] MEDS: SODIUM CHLORIDE FLUSH 0.9% 10 ML SYRINGE IVP SCH ×3 (00:53→16:51)
[2021-09-06] MEDS: BUDESONIDE 0.5 MG/2 ML NEB INH SCH ×2 (06:14→19:25)
[2021-09-06] MEDS: ALBUTEROL NEB 2.5 MG/3 ML INH PRN (06:14)
[2021-09-06] MEDS: PANTOPRAZOLE 40 MG TABLET PO SCH (06:14)
[2021-09-06] MEDS: HYDROmorphone 0.5 MG/0.5 ML SYRINGE IVP PRN (06:17)
[2021-09-06] MEDS: INSULIN ASPART 300 UNIT/3 ML PEN SUBQ SCH ×4 (07:58→20:44)
--- NOTE | 2021-09-06 08:10 | PROVIDER PROGRESS NOTE ---
<Alise David L - Last Filed: 09/06/21 08:10> Subjective - Prog Note Date Prog Note Date: 09/06/21 Prog Note Time: 08:10 - Subjective Pt reports feeling: Improved Current Medications - Current Medications Current Medications: Active Medications Acetaminophen (Acetaminophen 325 Mg Tablet) 650 mg PO Q4HR PRN PRN Reason: Pain or Fever > 38C (100.4F) Last Admin: 09/05/21 10:04 Dose: 650 mg Albuterol (Albuterol Neb 2.5 Mg/3 Ml) 2.5 mg INH Q4HR PRN PRN Reason: Wheezing Last Admin: 09/06/21 06:14 Dose: 2.5 mg Aspirin (Aspirin Ec 325 Mg Tablet) 325 mg PO DAILY [facility] Last Admin: 09/05/21 10:04 Dose: 325 mg Atorvastatin Calcium (Atorvastatin 40 Mg Tablet) 40 mg PO QPM [facility] Last Admin: 09/05/21 22:03 Dose: 40 mg Budesonide (Budesonide 0.5 Mg/2 Ml Neb) 0.5 mg INH RTBID [facility] Last Admin: 09/06/21 06:14 Dose: 0.5 mg Chlorhexidine Gluconate (Chlorhexidine Gluconate 15 Ml Udc) 15 ml PO BID PRN PRN Reason: ORAL CARE Last Admin: 09/05/21 10:38 Dose: 15 ml Cholecalciferol (Cholecalciferol 25 Mcg Tablet) 50 mcg PO DAILY [facility] Last Admin: 09/05/21 10:04 Dose: 50 mcg Diltiazem HCl (Diltiazem Cd 180 Mg Capsule) 180 mg PO DAILY [facility] Last Admin: 09/05/21 10:05 Dose: 180 mg Docusate Sodium (Docusate Sodium 250 Mg Capsule) 250 - 500 mg PO DAILY [facility] Last Admin: 09/05/21 10:06 Dose: Not Given Enoxaparin Sodium (Enoxaparin 40 Mg/0.4 Ml Syringe) 40 mg SUBQ DAILY [facility] Last Admin: 09/05/21 10:06 Dose: 40 mg Ferrous Gluconate (Ferrous Gluconate 324 Mg Tablet) 324 mg PO DAILYWM [facility] Last Admin: 09/05/21 10:05 Dose: 324 mg Gabapentin (Gabapentin 100 Mg Capsule) 100 mg PO QPM [facility] Last Admin: 09/05/21 22:03 Dose: 100 mg Hydromorphone HCl (Hydromorphone 0.5 Mg/0.5 Ml Syringe) 0.5 mg IVP Q2H PRN PRN Reason: PAIN Last Admin: 09/06/21 06:17 Dose: 0.5 mg Dextrose (D5w) 1,000 mls @ 0 mls/hr IV .Q0M [facility] Last Admin: 09/05/21 01:34 Dose: 30 mls/hr Insulin Aspart (Insulin Aspart 300 Unit/3 Ml Pen) 3 - 11 unit SUBQ 0800,1200,1700,2100 [facility]; Protocol Last Admin: 09/06/21 07:58 Dose: Not Given Insulin Glargine (Insulin Glargine 300 Unit/3 Ml Pen) 40 unit SUBQ DAILY [facility] Last Admin: 09/05/21 10:06 Dose: 40 unit Lidocaine (Lidocaine Patch 5%) 1 patch TOP DAILY PRN PRN Reason: PAIN Last Admin: 08/31/21 12:36 Dose: 1 patch Mineral Oil (Min Oil/Dimethicon/Coconut Oil 92 Gm Tube) 1 applic TOP PRN PRN PRN Reason: Skin Care Last Admin: 09/04/21 11:58 Dose: 1 applic Multi-Ingredient Ointment (Zinc Oxide 20% Oint 30 Gm Tube) 1 applic TOP PRN PRN PRN Reason: Skin Care Last Admin: 09/05/21 10:39 Dose: 1 applic Multivitamins/Minerals (Multivitamin W/Minerals Tablet) 1 tab PO DAILYWM [facility] Last Admin: 09/05/21 10:03 Dose: 1 tab Ondansetron HCl (Ondansetron Odt 4 Mg Tablet) 4 mg TL Q6HR PRN PRN Reason: Nausea / Vomiting Pantoprazole Sodium (Pantoprazole 40 Mg Tablet) 40 mg PO QDAC [facility] Last Admin: 09/06/21 06:14 Dose: 40 mg Polyethylene Glycol (Polyethylene Glycol 3350 17 Gm Packet) 17 gm PO DAILY [facility] Last Admin: 09/05/21 10:07 Dose: Not Given Prednisone (Prednisone 20 Mg Tablet) 20 mg PO DAILYWM [facility] Last Admin: 09/05/21 10:04 Dose: 20 mg Senna (Senna 8.6 Mg Tablet) 8.6 - 17.2 mg PO DAILY [facility] Last Admin: 09/05/21 10:08 Dose: Not Given Sodium Chloride (Sodium Chloride Flush 0.9% 10 Ml Syringe) 10 ml IVP 0100,0900,1700 [facility] Last Admin: 09/06/21 00:53 Dose: 10 ml Sodium Chloride (Sodium Chloride Flush 0.9% 10 Ml Syringe) 20 ml IVP PRN PRN PRN Reason: After Blood Draw Last Admin: 09/04/21 11:57 Dose: 30 ml Trazodone HCl (Trazodone 50 Mg Tablet) 50 mg PO QPM [facility] Last Admin: 09/05/21 22:03 Dose: 50 mg Omeprazole 40 mg PO DAILY 03/06/13 Aspirin [Aspir-Shannen] 325 mg PO DAILY 01/17/14 Atorvastatin Calcium 40 mg PO QPM 04/22/19 Diltiazem HCl [Diltiazem ER] 180 mg PO DAILY 04/22/19 Gabapentin [Neurontin] 100 mg PO QPM 04/22/19 Ipratropium/Albuterol [Duoneb] 3 ml INH Q6H 04/22/19 Furosemide 80 mg PO BID 04/24/19 Fluticasone/Salmeterol [Advair 500-50 Diskus] 1 each INH BID 05/31/19 Insulin Glargine [Lantus Solostar] 0 - 58 unit IM DAILY 10/09/20 Ferrous Gluconate 324 mg PO .[id number] 08/19/21 Losartan [Cozaar] 50 mg PO DAILY 08/19/21 Potassium Chloride [K-Dur] 20 meq PO BID 08/19/21 metFORMIN [Glucophage] 1,000 mg PO DAILY 08/19/21 Objective - Vital Signs/Intake & Output Reviewed Vital Signs: Yes Vital Signs: Vital Signs x48h Temp Pulse Pulse Resp BP Pulse Ox 09/06/21 06:38 103 H 20 09/06/21 04:47 36.7 C 109 H 20 126/56 L 93 Intake & Output: Intake & Output 09/03/21 09/04/21 09/05/21 09/06/21 23:59 23:59 23:59 23:59 Intake Total 1430 3124.693 1657.234 Output Total 1875 2166 1626 400 Balance -445 958.693 31.234 -400 - Objective General Appearance: positive: Alert - Lab Results Fish Bones: 09/05/21 04:51 09/05/21 04:51 Other Labs: Lab Results x24hrs 09/06/21 09/05/21 09/05/21 Range/Units 07:50 21:20 16:38 POC Whole Bld Glucose 93 156 H 148 H (70 - 100) mg/dL Phosphorus (2.5-4.6) mg/dL Magnesium (1.7-2.8) mg/dL 09/05/21 09/05/21 Range/Units 11:15 04:51 POC Whole Bld Glucose 153 H (70 - 100) mg/dL Phosphorus 4.2 (2.5-4.6) mg/dL Magnesium 2.3 (1.7-2.8) mg/dL Assessment/Plan - Problem List (1) Physical deconditioning Impression: This gentleman has really had decreased mobility to begin with. 4 years ago, a sudden exacerbation of COPD resulted in a prolonged hospital stay at [place]. Since that time he is gradually increased weight, been less and less active, and more more sedentary. He can no longer drive a car. He needs his to help him get dressed. Cannot do any housework or yard work the way he used to. His has to help him bathe. He was walking with a cane 3 to 4 feet. He could walk from his recliner to his desk and back to the recliner again. Would get around with a scooter if he had to lose longer distances. At baseline he was on 2-1/2 L of oxygen and used a CPAP and nebulizer machine at home. He has a lot of help from his , son and [id number], and granddaughter. He gets help with showering and has a shower chair. With this hospitalization, he has become severely deconditioned. He is not at the baseline he was before his Covid illness. He will need strengthening exercises and rehabilitation before he can get home.He has been working with physical therapy, and is proud of being able to at least sit up today. He use the grab bars above his bed to lift himself up and reposition himself. He said that was a major accomplishment. Plan: To continue to work with physical therapy. Transferred from ICU to [facility] status. Covid vaccine done yesterday. Await noninvasive ventilator support for Wednesday of next week (today is Wednesday). Hopefully he can be discharged to nursing home facility for rehab on Wednesday. (2) Chronic respiratory failure with hypoxia. The acute phase has resolved. Impression: The decompensation was secondary to COVID-19 pneumonia and Hx of COPD and possibly from obesity hypoventilation and OMERO. He was extubated and is on BIPAP at night alternating with n.c. and remains in the ICU due to BiPAP but he hates it. Long conversation with him 09/03/21 w at bedside explaining to him what his pathophysiology is and why he needs this machine. Reluctantly willing to us it if he can "get back his life". He completed 10 days of iv Decadron and he is on po Prednisone. He was also greater than 10 L positive in fluid balance since hospitalization. Received IV lasix until 08/31 then stopped. Max weight was 167 kg and now 153 kg Patient's home CPAP has been recalled by [facility]. A non-invasive home ventilator was ordered to treat his chronic respiratory failure. BIPAP was considered and deemed ineffective. We are now awaiting delivery. Hopefully he will remain stable enough to go to rehab. At this point in time he is medically stable for discharge. The only thing we are awaiting his delivery of Noninvasive ventilator. We had thought it was going to be trilogy but respiratory therapy tells me is a different machine. Delivery will hopefully be next Wednesday. From there he will go to a nursing home facility for rehab. He is very motivated. Looking forward to getting stronger and then going home. Once he is home he plans on joining cardiopulmonary rehab. Once he is finished with cardiopulmonary rehab wants to stay active with the therapy and exercises they teach him. (3) Pneumonia due to COVID-19 virus resolved. Impression: This is the cause of his respiratory failure. He has now completed Remdesivir, Decadron and a course of iV antibiotics. When he had severe oozing of blood from his IJ line several days ago, his Lovenox 150 twice daily empiric was changed to a low 40 mg daily (prophylactic) dose. (4) Severe COPD A PFT report from several years ago showed he has severe COPD with FEV1/FVC ratio of 30% of predicted. His said he was a heavy smoker but has now quit about 7 years ago. He was not on home O2 before this admission. He has been on Prednisone 20 mg daily orally once he has finished a 10 day course of Decadron. We will plan to taper the Prednisone very slowly, over many weeks. Today is day #7 of prednisone 20 mg. tomorrow will drop to 15 mg/day for a week, and should be tapered by 5 mg every week. We started him on inhaled Budesonide and Singulair and continue the inhaled albuterol nebulizer. There is no change today. Please see advanced care planning conversation I had with he and his under separate dictation 09/03/21. (5) Hypernatremia resolved This was likely related to getting IV diuretics and IV fluids containing saline. Will stopped saline and stopped Lasix and gave slow free water using D5W x another L between 09/01 and 09/02 and it worked but sodium went up again 09/03 so back on D5 83 cc/hr. Recheck BMP daily (6) Skin tear on buttocks Pain is his biggest complaint since being extubated, because he is no longer sedated. We ordered topical care, turn and reposition and Fentanyl doses and Lidocaine patch for pain management. PT started working with sigrid to increase activity and more out of bed to chair and off of his skin tears. I have asked nursing supervisory clerk to see if we can get a air mattress form. [facility] has been contacted and hopefully we can get a bed soon. (6) Acute kidney injury superimposed on CKD Impression: His renal function continues to improve daily. On admission he was 39 and 2.5. Today he is 16 and 1.0. He was getting iv fluids plus ng liquid feeds. Ng feeds were stopped when he was extubated. We will continue to monitor his renal function and urine output. He still has the [place] because he has not been able to stand and bear weight to use a bedsdie commode. (7) Insulin dependent diabetes mellitus Impression: His blood glucose was exacerbated by the steroids. We started a diabetic diet, and on ss Insulin. 09/01/21 we resumed his home Lantus, advanced pureed diet to a cc diet, soft texture, as he has no teeth. Yesterday his glucose was 250, 150, 200. Today he is 200, 240, 160. (8) Morbid Obesity (BMI 50-59) As per Hx. (9) Sleep apnea on CPAP The was able to give detailed history of him being on a CPAP machine at home, but the machine was recalled 3 months ago, and the company has not sent him a new one yet despite many of her phone calls. This event was reported to RT. RT and Hospitalist are working on obtaining a proper device for him because of his diagnoses.We have worked with a [employer]. Hopefully he will his noninvasive ventilator will get here on Wednesday and we will then put that on him. (10) Iron deficiency anemia Impression: Hemoglobin is stable. We have resumed home oral iron. (11) Gram-positive bacteremia Impression: This is felt to be contaminant. Repeat cultures have been negative to date and the other set was negative. Antibiotics have been discontinued. (12) Hypotension Impression: Resolved, Levophed was turned off (13) Accelerated junctional rhythm Resolved. Possibly due to COVID heart We will continue to monitor his rhythm on telemetry. (14) Hyperkalemia Impression: Resolved <Paris Nixon - Last Filed: 09/07/21 07:23> Subjective - Subjective Subjective: Reports he is feeling good today except "my butt really hurts." Nursing has been applying barrier creams and helping to turn him in bed to keep him comfortable. Denies chest pain, fevers, chills, or dyspnea. Remains on 3L NC. Looking forward to working with PT. Has been eating 25-75% of his meals. We continue to await delivery of his noninvasive ventilator mask after which he can discharge to a rehab facility. Objective - Vital Signs/Intake & Output Reviewed Vital Signs: Yes Vital Signs: Vital Signs x48h Temp Pulse Resp BP Pulse Ox 09/06/21 10:07 37.0 C 113 H 22 132/60 H 94 Intake & Output: Intake & Output 09/03/21 09/04/21 09/05/21 09/06/21 23:59 23:59 23:59 23:59 Intake Total 1430 3124.693 1657.234 560 Output Total 1875 2166 1626 1100 Balance -445 958.693 31.234 540 - Objective General Appearance: positive: No acute distress, Mild distress, Other (mild distress due to buttock pain but otherwise denies complaints) Eyes Bilateral: positive: Normal inspection, PERRL ENT: positive: ENT inspection nml, No signs of dehydration Respiratory: positive: Chest non-tender, No respiratory distress Cardiovascular: positive: Regular rate & rhythm, No murmur, No gallop Peripheral Pulses: 2+ Dorsalis pedis (R), 2+ Dorsalis pedis (L) Abdomen: positive: Non-tender, No organomegaly, Nml bowel sounds, Other (obese) Skin: positive: Warm, Dry, Other (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 the skin is brown and peeling to reveal pink intact epithelium. Reports this is chronic. Open wounds in the gluteal cleft with blanching pink non-granulation tissue, related to friction and incontinence) Extremities: positive: Non-tender, Full ROM, Nml appearance Neurologic/Psychiatric: positive: Oriented x3 - Lab Results Fish Bones: 09/05/21 04:51 09/05/21 04:51 Other Labs: Lab Results x24hrs 09/06/21 09/06/21 09/05/21 Range/Units 11:58 07:50 21:20 POC Whole Bld Glucose 132 H 93 156 H (70 - 100) mg/dL 09/05/21 Range/Units 16:38 POC Whole Bld Glucose 148 H (70 - 100) mg/dL ABX Reporting Has patient been on IV antibiotics over the past 48 hours?: No Assessment/Plan - Problem List (1) Physical deconditioning Impression: Problem list as per Dr. David above. I have decreased his prednisone for the taper this week. No other changes made.
[2021-09-06] MEDS: ASPIRIN EC 325 MG TABLET PO SCH (10:11)
[2021-09-06] MEDS: INSULIN GLARGINE 300 UNIT/3 ML PEN SUBQ SCH (10:11)
[2021-09-06] MEDS: predniSONE 20 MG TABLET PO SCH (10:11)
[2021-09-06] MEDS: CHOLECALCIFEROL 25 MCG TABLET PO SCH (10:11)
[2021-09-06] MEDS: MULTIVITAMIN W/MINERALS TABLET PO SCH (10:11)
[2021-09-06] MEDS: FERROUS GLUCONATE 324 MG TABLET PO SCH (10:11)
[2021-09-06] MEDS: diltiaZEM CD 180 MG CAPSULE PO SCH (10:11)
[2021-09-06] MEDS: ENOXAPARIN 40 MG/0.4 ML SYRINGE SUBQ SCH (10:12)
[2021-09-06] MEDS: HYDROmorphone 2 MG TABLET PO PRN ×2 (12:12→18:25)
[2021-09-06] MEDS: polyethylene glycoL 3350 17 GM PACKET PO SCH (12:15)
[2021-09-06] MEDS: DOCUSATE SODIUM 250 MG CAPSULE PO SCH (12:15)
[2021-09-06] MEDS: SENNA 8.6 MG TABLET PO SCH (12:15)
[2021-09-06] MEDS: ATORVASTATIN 40 MG TABLET PO SCH (20:30)
[2021-09-06] MEDS: GABAPENTIN 100 MG CAPSULE PO SCH (20:30)
[2021-09-06] MEDS: traZODone 50 MG TABLET PO SCH (20:30)
[2021-09-07] MEDS: HYDROmorphone 2 MG TABLET PO PRN ×3 (00:32→21:20)
[2021-09-07] MEDS: SODIUM CHLORIDE FLUSH 0.9% 10 ML SYRINGE IVP SCH ×3 (00:53→16:42)
[2021-09-07] MEDS: ALBUTEROL NEB 2.5 MG/3 ML INH PRN (06:42)
[2021-09-07] MEDS: BUDESONIDE 0.5 MG/2 ML NEB INH SCH (06:42)
[2021-09-07] MEDS: PANTOPRAZOLE 40 MG TABLET PO SCH (06:43)
--- NOTE | 2021-09-07 08:12 | PROVIDER PROGRESS NOTE ---
Subjective - Prog Note Date Prog Note Date: 09/07/21 - Subjective Pt reports feeling: Improved Subjective: Pt notes that he did not sleep very well due to continued pain in his buttocks, but if he doesn't think about the pain he is "so much better than before". His low air loss mattress has not arrived from [facility] but nursing has found a bariatric chair for him to sit in when he gets out of bed with PT. He would like to sit on a pillow in the chair because of the buttock pain. He has no other concerns or complaints at this time. Objective - Vital Signs/Intake & Output Reviewed Vital Signs: Yes Vital Signs: Vital Signs x48h Temp Pulse Pulse Resp BP Pulse Ox 09/07/21 04:33 37.0 C 103 H 20 140/67 H 96 09/07/21 04:00 102 H 09/07/21 00:48 102 H 09/07/21 00:21 36.8 C 22 140/72 H 95 Intake & Output: Intake & Output 09/04/21 09/05/21 09/06/21 09/07/21 23:59 23:59 23:59 23:59 Intake Total 3124.693 1432.710 0053 200 Output Total 2166 1626 1875 600 Balance 958.693 31.840 -009 -400 - Objective General Appearance: positive: No acute distress, Alert Eyes Bilateral: positive: Normal inspection, PERRL, No lid inflammation, No scleral icterus ENT: positive: ENT inspection nml, No signs of dehydration Neck: positive: Nml inspection Respiratory: positive: Chest non-tender, No respiratory distress, Breath sounds nml Cardiovascular: positive: Regular rate & rhythm, No murmur Peripheral Pulses: 2+ Dorsalis pedis (R), 2+ Dorsalis pedis (L) Abdomen: positive: Other (Abdomen is obese but soft and non-tender to palpation) Skin: positive: Other (Severe full body iccthyosis with areas of sloughing that reveal intact pink epithelium. Open wounds in the gluteal cleft with pink non- granulation tissue that blanches and is related to friction, trauma and moisture/incontinence. No other open wounds noted.) Extremities: positive: Non-tender, Full ROM, Nml appearance, No pedal edema Neurologic/Psychiatric: positive: Oriented x3 - Lab Results Fish Bones: 09/05/21 04:51 09/07/21 08:34 Other Labs: Lab Results x24hrs 09/07/21 09/06/21 09/06/21 Range/Units 07:47 20:30 16:38 POC Whole Bld Glucose 78 153 H 167 H (70 - 100) mg/dL 09/06/21 Range/Units 11:58 POC Whole Bld Glucose 132 H (70 - 100) mg/dL Assessment/Plan - Problem List (1) Physical deconditioning Impression: (1) Physical deconditioning Impression: This gentleman has really had decreased mobility to begin with. 4 years ago, a sudden exacerbation of COPD resulted in a prolonged hospital stay at [facility]. Since that time he is gradually increased weight, been less and less active, and more more sedentary. He can no longer drive a car. He needs his to help him get dressed. Cannot do any housework or yard work the way he used to. His has to help him bathe. He was walking with a cane 3 to 4 feet. He could walk from his recliner to his desk and back to the recliner again. Would get around with a scooter if he had to lose longer distances. At baseline he was on 2-1/2 L of oxygen and used a CPAP and nebulizer machine at home. He has a lot of help from his , son and [id number], and granddaughter. He gets help with showering and has a shower chair. With this hospitalization, he has become severely deconditioned. He is not at the baseline he was before his Covid illness. He will need strengthening exercises and rehabilitation before he can get home. He has been working with physical therapy, and has been able to walk a few steps to the chair with PT and a walker the past 2 days. He use the grab bars above his bed to lift himself up and reposition himself. Plan: To continue to work with physical therapy. Await noninvasive ventilator support for Wednesday of next week (today is Wednesday). Hopefully he can be discharged to shelter facility for rehab on Wednesday. (2) Chronic respiratory failure with hypoxia. The acute phase has resolved. Impression: The decompensation was secondary to COVID-19 pneumonia and Hx of COPD and possibly from obesity hypoventilation and OMERO. He was extubated and on bipap but has been able to transition to 3L nasal cannula during the day currently. Long conversation with him 09/03/21 w at bedside explaining to him what his pathophysiology is and why he needs this machine. Reluctantly willing to use it if he can "get back his life". He completed 10 days of iv Decadron and he is on po Prednisone. He was also greater than 10 L positive in fluid balance since hospitalization. Received IV lasix until 08/31 then stopped. Max weight was 167 kg and now 153 kg Patient's home CPAP has been recalled by [employer]. A non-invasive home ventilator was ordered to treat his chronic respiratory failure. BIPAP was considered and deemed ineffective. We are now awaiting delivery. Hopefully he will remain stable enough to go to rehab. At this point in time he is medically stable for discharge. The only thing we are awaiting his delivery of Noninvasive ventilator. We had thought it was going to be trilogy but respiratory therapy tells me is a different machine. Delivery will hopefully be next Wednesday. From there he will go to a shelter facility for rehab. He received his COVID vaccine last week. He is very motivated. Looking forward to getting stronger and then going home. Once he is home he plans on joining cardiopulmonary rehab. Once he is finished with cardiopulmonary rehab wants to stay active with the therapy and exercises they teach him. (3) Pneumonia due to COVID-19 virus resolved. Impression: This is the cause of his respiratory failure. He has now completed Remdesivir, Decadron and a course of IV antibiotics. When he had severe oozing of blood from his IJ line several days ago, his Lovenox 150 twice daily empiric was changed to a low 40 mg daily (prophylactic) dose. (4) Severe COPD A PFT report from several years ago showed he has severe COPD with FEV1/FVC ratio of 30% of predicted. His said he was a heavy smoker but has now quit about 7 years ago. He was not on home O2 before this admission. He has been on Prednisone 20 mg daily orally once he has finished a 10 day course of Decadron. We will plan to taper the Prednisone very slowly, over many weeks. Today is day #1 of prednisone 15 mg for a week, and should be tapered by 5 mg every week. We started him on inhaled Budesonide and Singulair and continue the inhaled albuterol nebulizer. There is no change today. Please see advanced care planning conversation Dr. David had with he and his under separate dictation 09/03/21. (5) Hypernatremia resolved This was likely related to getting IV diuretics and IV fluids containing saline. 139 today. -Daily BMP (6) Skin tear on buttocks Pain is his biggest complaint since being extubated. I looked at the wounds yesterday and nursing placed a picture in the chart. There are scattered open wounds within the gluteal cleft with blanching, pink non-granulating tissue. He has chronic iccthyosis with dry flaky skin which he says is chronic. This affects his entire body but is very concentrated on the trunk. The skin is sloughing to reveal intact pink epithelium underneath. This, in combination with periodic incontinence and decreased mobility place him at higher risk for skin breakdown. I had nursing place a mepilex over the wounds as the creams were causing him to stick to the pads in the bed, increasing the skin tears and causing increased pain. The mepilex dressings should remain in place for 3 days at a time and then be changed. If unable to keep them in place can return to barrier creams for protection and healing but I'd like to try the dressings at this point. He has been turning and repositioning and PT has been working with him to increase his activity tolerance. Dr. David reports a low air loss mattress was requested by the nursing irrigation supervisor from [facility] but it has not arrived yet. Plan: Mepilex Q3days Low air loss mattress (6) Acute kidney injury superimposed on CKD Impression: His renal function continues to improve daily. On admission he was 39 and 2.5. Creatinine 1.1 today. He is urinating appropriately. We will continue to monitor his renal function and urine output. He still has the [place] because he has not been able to stand and bear weight to use a bedsdie commode. (7) Insulin dependent diabetes mellitus Impression: His blood glucose was exacerbated by the steroids. We started a diabetic diet, and on ss Insulin. 09/01/21 we resumed his home Lantus, advanced pureed diet to a cc diet, soft texture, as he has no teeth. His glucose over the past 24 hours has been [phone]. Will continue the current plan. (8) Morbid Obesity (BMI 50-59) As per Hx. (9) Sleep apnea on CPAP The was able to give detailed history of him being on a CPAP machine at home, but the machine was recalled 3 months ago, and the company has not sent him a new one yet despite many of her phone calls. This event was reported to RT. RT and Hospitalist are working on obtaining a proper device for him because of his diagnoses.We have worked with a [employer]. Hopefully he will his noninvasive ventilator will get here on Wednesday and we will then put that on him. (10) Iron deficiency anemia Impression: Hemoglobin is stable. We have resumed home oral iron. (11) Gram-positive bacteremia Impression: Resolved. This is felt to be contaminant. Repeat cultures have been negative to date and the other set was negative. Antibiotics have been discontinued. (12) Hypotension Impression: Resolved, Levophed was turned off (13) Accelerated junctional rhythm Resolved. Possibly due to COVID heart We will continue to monitor his rhythm on telemetry. (14) Hyperkalemia Impression: Resolved
[2021-09-07 09:25] LABS: CALCIUM 7.8 mg/dL (8.5-10.3); CREATININE 1.1 mg/dL (0.6-1.2); POTASSIUM 3.8 mmol/L (3.5-5.0)
[2021-09-07] MEDS: INSULIN ASPART 300 UNIT/3 ML PEN SUBQ SCH ×4 (10:03→21:21)
[2021-09-07] MEDS: CHOLECALCIFEROL 25 MCG TABLET PO SCH (10:04)
[2021-09-07] MEDS: predniSONE 10 MG TABLET PO SCH (10:04)
[2021-09-07] MEDS: diltiaZEM CD 180 MG CAPSULE PO SCH (10:05)
[2021-09-07] MEDS: DOCUSATE SODIUM 250 MG CAPSULE PO SCH (10:06)
[2021-09-07] MEDS: polyethylene glycoL 3350 17 GM PACKET PO SCH (10:06)
[2021-09-07] MEDS: FERROUS GLUCONATE 324 MG TABLET PO SCH (10:06)
[2021-09-07] MEDS: ASPIRIN EC 325 MG TABLET PO SCH (10:06)
[2021-09-07] MEDS: MULTIVITAMIN W/MINERALS TABLET PO SCH (10:06)
[2021-09-07] MEDS: SENNA 8.6 MG TABLET PO SCH (10:07)
[2021-09-07] MEDS: INSULIN GLARGINE 300 UNIT/3 ML PEN SUBQ SCH (10:07)
[2021-09-07] MEDS: ENOXAPARIN 40 MG/0.4 ML SYRINGE SUBQ SCH (10:12)
[2021-09-07] MEDS: ACETAMINOPHEN 325 MG TABLET PO PRN (16:38)
[2021-09-07] MEDS: LIDOCAINE PATCH 5% TOP PRN (16:38)
[2021-09-07] MEDS: ATORVASTATIN 40 MG TABLET PO SCH (21:20)
[2021-09-07] MEDS: GABAPENTIN 100 MG CAPSULE PO SCH (21:20)
[2021-09-07] MEDS: traZODone 50 MG TABLET PO SCH (21:21)
[2021-09-08] MEDS: SODIUM CHLORIDE FLUSH 0.9% 10 ML SYRINGE IVP SCH ×3 (01:35→20:41)
[2021-09-08] MEDS: HYDROmorphone 2 MG TABLET PO PRN ×3 (04:28→20:41)
[2021-09-08 05:23] LABS: CREATININE 1.2 mg/dL (0.6-1.2); POTASSIUM 3.7 mmol/L (3.5-5.0)
--- NOTE | 2021-09-08 06:02 | PROVIDER PROGRESS NOTE ---
Assessment/Plan - Problem List (1) Physical deconditioning Assessment/Plan: He continues to work with physical therapy. [facility]. Social work to help facilitate the process. (2) Acute and chronic respiratory failure with hypoxia Assessment/Plan: Acute component of respiratory failure was due to COVID-19 pneumonia. Patient has been treated to completion and recovered. Chronically patient's respiratory problems are due to COPD and obstructive sleep apnea. Continue CPAP nightly and as needed. Patient is expecting a new CPAP/BiPAP machine to be delivered by 09/09/2021. On albuterol as needed. Budesonide twice daily. Prednisone 15 mg p.o. daily. (3) COPD (chronic obstructive pulmonary disease) Assessment/Plan: On albuterol as needed. Budesonide twice daily. Prednisone 15 mg p.o. daily. (4) Obstructive sleep apnea on CPAP Assessment/Plan: Continue CPAP Nightly. (5) Tear of skin of buttock Assessment/Plan: Mepilex dressing applied to area. Low air loss mattress requested. Encourage more activity so that patient can be out of bed. (6) Insulin dependent diabetes mellitus Assessment/Plan: Lantus 40 units subcu daily. Accu-Cheks before every meal and at bedtime. Sliding scale insulin. - Current Meds Current Meds: Current Medications Generic Name Dose Route Start Last Admin Trade Name Freq PRN Reason Stop Dose Admin Acetaminophen 650 mg 09/04/21 09:45 09/07/21 16:38 Acetaminophen 325 Mg Tablet PO 650 mg Q4HR PRN Administration Pain or Fever > 38C (100.4F) Albuterol 2.5 mg 08/19/21 11:45 09/07/21 06:42 Albuterol Neb 2.5 Mg/3 Ml INH 2.5 mg Q4HR PRN Administration Wheezing Aspirin 325 mg 08/29/21 09:00 09/07/21 10:06 Aspirin Ec 325 Mg Tablet PO 325 mg DAILY DINESH Administration Atorvastatin Calcium 40 mg 08/19/21 21:00 09/07/21 21:20 Atorvastatin 40 Mg Tablet PO 40 mg QPM DINESH Administration Budesonide 0.5 mg 08/28/21 19:00 09/07/21 06:42 Budesonide 0.5 Mg/2 Ml Neb INH 0.5 mg RTBID DINESH Administration Chlorhexidine Gluconate 15 ml 08/31/21 09:34 09/05/21 10:38 Chlorhexidine Gluconate 15 Ml Udc PO 15 ml BID PRN Administration [facility] Cholecalciferol 50 mcg 08/21/21 09:00 09/07/21 10:04 Cholecalciferol 25 Mcg Tablet PO 50 mcg DAILY DINESH Administration Diltiazem HCl 180 mg 09/03/21 11:00 09/07/21 10:05 Diltiazem Cd 180 Mg Capsule PO 180 mg DAILY DINESH Administration Docusate Sodium 250 - 500 mg 08/26/21 09:00 09/07/21 10:06 Docusate Sodium 250 Mg Capsule PO Not Given DAILY [facility] Enoxaparin Sodium 40 mg 08/27/21 09:00 09/07/21 10:12 Enoxaparin 40 Mg/0.4 Ml Syringe SUBQ 40 mg DAILY [facility] Administration Ferrous Gluconate 324 mg 09/02/21 08:00 09/07/21 10:06 Ferrous Gluconate 324 Mg Tablet PO 324 mg DAILYWM DINESH Administration Gabapentin 100 mg 08/31/21 21:00 09/07/21 21:20 Gabapentin 100 Mg Capsule PO 100 mg QPM [facility] Administration Hydromorphone HCl 1 mg 09/06/21 09:52 09/08/21 04:28 Hydromorphone 2 Mg Tablet PO 1 mg Q6HR PRN Administration PAIN Dextrose 1,000 mls @ 0 mls/hr 09/05/21 02:00 09/05/21 01:34 D5w IV 30 mls/hr .Q0M [facility] Administration TKO Insulin Aspart 3 - 11 unit 09/01/21 08:00 09/07/21 21:21 Insulin Aspart 300 Unit/3 Ml Pen SUBQ Not Given 0800,1200,1700,2100 [facility] Protocol Insulin Glargine 40 unit 09/01/21 09:00 09/07/21 10:07 Insulin Glargine 300 Unit/3 Ml Pen SUBQ 40 unit DAILY DINESH Administration Lidocaine 1 patch 08/29/21 14:54 09/07/21 16:38 Lidocaine Patch 5% TOP 1 patch DAILY PRN Administration PAIN Mineral Oil 1 applic 08/30/21 11:01 09/04/21 11:58 Min Oil/Dimethicon/Coconut Oil 92 Gm Tube TOP 1 applic PRN PRN Administration Skin Care Multi-Ingredient Ointment 1 applic 08/22/21 21:41 09/05/21 10:39 Zinc Oxide 20% Oint 30 Gm Tube TOP 1 applic PRN PRN Administration Skin Care Multivitamins/Minerals 1 tab 09/05/21 09:00 09/07/21 10:06 Multivitamin W/Minerals Tablet PO 1 tab DAILYWM DINESH Administration Pantoprazole Sodium 40 mg 08/31/21 07:00 09/07/21 06:43 Pantoprazole 40 Mg Tablet PO 40 mg QDAC DINESH Administration Polyethylene Glycol 17 gm 08/22/21 09:00 09/07/21 10:06 Polyethylene Glycol 3350 17 Gm Packet PO Not Given DAILY DINESH Prednisone 15 mg 09/07/21 08:00 09/07/21 10:04 Prednisone 10 Mg Tablet PO 09/13/21 09:00 15 mg DAILYWM DINESH Administration Senna 8.6 - 17.2 mg 08/26/21 09:00 09/07/21 10:07 Senna 8.6 Mg Tablet PO Not Given DAILY DINESH Sodium Chloride 10 ml 08/19/21 17:00 09/08/21 01:35 Sodium Chloride Flush 0.9% 10 Ml Syringe IVP 10 ml 0100,0900,1700 DINESH Administration Sodium Chloride 20 ml 08/22/21 04:43 09/04/21 11:57 Sodium Chloride Flush 0.9% 10 Ml Syringe IVP 30 ml PRN PRN Administration After Blood Draw Trazodone HCl 50 mg 08/31/21 21:00 09/07/21 21:21 Trazodone 50 Mg Tablet PO 50 mg QPM DINESH Administration - Lab Result Fish Bone Diagrams: 09/05/21 04:51 09/08/21 05:10 Subjective - Subjective Patient Reports: Other (Patient was resting comfortably in bed at time of exam with BiPAP on. Denied any chest pain, dyspnea, abdominal pain, nausea, vomiting. He has been working with physical therapy and improving his strength. Skin appears very dry. Complains of pain on his bottom) Objective Vital Signs: Vital Signs - 24 hr 09/07/21 09/07/21 09/07/21 08:45 16:00 22:00 Temperature 36.7 C 37.0 C Heart Rate 102 H Heart Rate [ 110 H 104 H Radial] Respiratory 21 20 Rate Blood Pressure 137/66 H [Left Radial artery] Blood Pressure 140/81 H [Right Radial artery] O2 Saturation 93 94 09/07/21 09/08/21 09/08/21 23:45 02:00 04:30 Temperature 37.2 C Heart Rate 100 Heart Rate [ 87 Radial] Respiratory 20 Rate Blood Pressure [Left Radial artery] Blood Pressure 139/54 H [Right Radial artery] O2 Saturation 96 95 09/08/21 05:49 Temperature Heart Rate 98 Heart Rate [ Radial] Respiratory Rate Blood Pressure [Left Radial artery] Blood Pressure [Right Radial artery] O2 Saturation Oxygen O2 Source BIPAP I&O (Last 24 Hrs): Intake and Output Totals x24h 09/06/21 09/07/21 09/08/21 23:59 23:59 23:59 Intake Total 1080 1690 Output Total 1871 9194 225 Balance -795 -960 -225 General: Alert, Oriented x3, No acute distress HEENT: PERRLA, EOMI Neck: Supple, No JVD Cardiovascular: Regular rate, No murmurs Respiratory: Chest non-tender, No respiratory distress, Breath sounds nml Abdomen: Normal bowel sounds, Soft, No tenderness Extremities: No clubbing, No cyanosis, No edema Comments/Notes: Dry, peeling skin - Results Results: Laboratory Results WBC 7.0 x10^3/uL (4.8-10.8) 09/05/21 04:51 RBC 2.84 10^6/uL (4.70-6.10) L 09/05/21 04:51 Hgb 8.1 g/dL (14.0-18.0) L 09/05/21 04:51 Hct 27.3 % (42.0-52.0) L 09/05/21 04:51 MCV 96.1 fL (80.0-94.0) H 09/05/21 04:51 MCH 28.5 pg (27.0-31.0) 09/05/21 04:51 MCHC 29.7 g/dL (32.0-36.0) L 09/05/21 04:51 RDW 17.9 % (12.0-15.0) H 09/05/21 04:51 Plt Count 203 10^3/uL (130-450) 09/05/21 04:51 MPV 9.6 fL (7.4-11.4) 09/05/21 04:51 Neut # (Auto) 4.8 10^3/uL (1.5-6.6) 09/05/21 04:51 Lymph # (Auto) 1.4 10^3/uL (1.5-3.5) L 09/05/21 04:51 [place] # (Auto) 0.5 10^3/uL (0.0-1.0) 09/05/21 04:51 Eos # (Auto) 0.2 10^3/uL (0.0-0.7) 09/05/21 04:51 Baso # (Auto) 0.0 10^3/uL (0.0-0.1) 09/05/21 04:51 Absolute Nucleated RBC 0.00 x10^3/uL 09/05/21 04:51 Total Counted 100 08/29/21 05:45 Band Neuts % (Manual) Not Reportable 08/31/21 05:35 Abnorm Lymph % (Manual) Not Reportable 08/31/21 05:35 Metamyelocytes % 1 % (-0) H 08/27/21 04:45 Myelocytes % 1 % (-0) H 08/27/21 04:45 Nucleated RBC % 0.0 /100WBC 09/05/21 04:51 Neutrophils # (Manual) Not Reportable 08/31/21 05:35 Lymphocytes # (Manual) Not Reportable 08/31/21 05:35 Monocytes # (Manual) Not Reportable 08/31/21 05:35 Eosinophils # (Manual) Not Reportable 08/31/21 05:35 Basophils # (Manual) Not Reportable 08/31/21 05:35 Nucleated RBCs 1 % 08/27/21 04:45 Differential Comment MANUAL=AUTO DIFF 08/31/21 05:35 WBC Morphology NORMAL APPEARANCE (NORMAL) 08/25/21 04:50 Platelet Estimate NORMAL (130-450,000) (NORMAL) 08/31/21 05:35 Platelet Morphology NORMAL APPEARANCE (NORMAL) 08/31/21 05:35 RBC Morph Micro Appear 1+ HYPOCHROMASIA (NORMAL) 08/31/21 05:35 PT 15.3 secs (9.9-12.6) H 08/19/21 13:44 INR 1.4 (0.8-1.2) H 08/19/21 13:44 D-Dimer 527.1 ng/mL (200.0-255.0) H 08/22/21 04:45 Bld Gas Analysis Time 0508/29/21 05:19 Sample Site RIGHT RADIAL 08/29/21 05:19 ABG pH 7.39 (7.35-7.45) 08/29/21 05:19 ABG pCO2 52 mmHg (34-45) H 08/29/21 05:19 ABG pO2 77 mmHg (80-100) L 08/29/21 05:19 ABG HCO3 30.5 mmol/L (22.0-26.0) H 08/29/21 05:19 ABG Total CO2 32.1 MMOL/L (21.0-29.0) H 08/29/21 05:19 ABG O2 Saturation 94 % (94-98) 08/29/21 05:19 ABG Base Excess 4.7 mmol/L (-2.0-3.0) H 08/29/21 05:19 Endy Test POSITIVE 08/29/21 05:19 VBG pH 7.399 (7.31-7.41) 09/05/21 04:51 Ionized Calcium 1.05 mmol/L (1.15-1.33) L 09/05/21 04:51 Respiration Rate 10 b/min 08/29/21 05:19 O2 Delivery Device BiPAP 08/29/21 05:19 Vent Mode ASSIST/CONTROL 08/25/21 13:17 FiO2 50.00 08/29/21 05:19 Tidal Volume 500 mL 08/25/21 13:17 PEEP 7 cmH2O 08/25/21 13:17 EPAP 8 cmH2O 08/29/21 05:19 IPAP 16 cmH2O 08/29/21 05:19 Sodium 141 mmol/L (135-145) 09/08/21 05:10 Potassium 3.7 mmol/L (3.5-5.0) 09/08/21 05:10 Chloride 103 mmol/L (101-111) 09/08/21 05:10 Carbon Dioxide 29 mmol/L (21-32) 09/08/21 05:10 Anion Gap 9.0 (6-13) 09/08/21 05:10 BUN 13 mg/dL (6-20) 09/08/21 05:10 Creatinine 1.2 mg/dL (0.6-1.2) 09/08/21 05:10 Estimated GFR (MDRD) 59 (>89) L 09/08/21 05:10 Glucose 82 mg/dL (70-100) 09/08/21 05:10 POC Whole Bld Glucose 94 mg/dL (70 - 100) 09/07/21 21:08 Lactic Acid 1.3 mmol/L (0.5-2.2) 08/19/21 10:05 Calcium 8.0 mg/dL (8.5-10.3) L 09/08/21 05:10 Ionized Calcium YES 08/26/21 04:40 Phosphorus 4.2 mg/dL (2.5-4.6) 09/05/21 04:51 Magnesium 2.3 mg/dL (1.7-2.8) 09/05/21 04:51 Total Bilirubin 0.6 mg/dL (0.2-1.0) 08/27/21 04:45 Direct Bilirubin 0.1 mg/dL (0.1-0.5) 08/24/21 04:20 AST 29 IU/L (10-42) 08/27/21 04:45 ALT 24 IU/L (10-60) 08/27/21 04:45 Alkaline Phosphatase 61 IU/L (42-121) 08/27/21 04:45 Troponin I High Sens 11.4 ng/L (2.3-19.7) 08/19/21 10:05 C-Reactive Protein 6.6 mg/dL (0-1.0) H 08/21/21 04:53 B-Natriuretic Peptide 54 pg/mL (5-100) 08/19/21 10:05 Total Protein 6.4 g/dL (6.7-8.2) L 08/27/21 04:45 Albumin 2.6 g/dL (3.2-5.5) L 08/30/21 04:40 Globulin 3.9 g/dL (2.1-4.2) 08/27/21 04:45 Albumin/Globulin Ratio 0.6 (1.0-2.2) L 08/27/21 04:45 Prealbumin 26 mg/dL (18-45) 08/27/21 04:45 25-OH Vitamin D Total 10 ng/mL (30-100) L 08/20/21 13:55 TSH 0.13 uIU/mL (0.34-5.60) L 08/21/21 04:00 Free T4 1.27 ng/dL (0.58-1.64) 08/21/21 04:00 Nasal Adenovirus (PCR) NOT DETECTED 08/19/21 10:15 Nasal B. parapertussis DNA (PCR) NOT DETECTED 08/19/21 10:15 Nasal Coronavir 229E PCR NOT DETECTED 08/19/21 10:15 Nasal Coronavir HKU1 PCR NOT DETECTED 08/19/21 10:15 Nasal Coronavir NL63 PCR NOT DETECTED 08/19/21 10:15 Nasal Coronavir OC43 PCR NOT DETECTED 08/19/21 10:15 Nasal Enterovir/Rhinovir PCR DETECTED A 08/19/21 10:15 Nasal Influenza B PCR NOT DETECTED 08/19/21 10:15 Nasal Influenza A PCR NOT DETECTED 08/19/21 10:15 Nasal Parainfluen 1 PCR NOT DETECTED 08/19/21 10:15 Nasal Parainfluen 2 PCR NOT DETECTED 08/19/21 10:15 Nasal Parainfluen 3 PCR NOT DETECTED 08/19/21 10:15 Nasal Parainfluen 4 PCR NOT DETECTED 08/19/21 10:15 Nasal RSV (PCR) NOT DETECTED 08/19/21 10:15 Nasal Screen MRSA (PCR) NEGATIVE (NEGATIVE) 08/19/21 13:30 Nasal B.pertussis DNA PCR NOT DETECTED 08/19/21 10:15 Nasal C.pneumoniae (PCR) NOT DETECTED 08/19/21 10:15 Richy Human Metapneumo PCR NOT DETECTED 08/19/21 10:15 Nasal M.pneumoniae (PCR) NOT DETECTED 08/19/21 10:15 Nasal SARS-CoV-2 (PCR) DETECTED A 08/19/21 10:15 Ref Lab Test Result Cancelled 08/19/21 10:05 - Procedures Procedures: Procedures ASSISTANCE WITH RESPIRATORY VENTILATION, <24 HRS, CPAP (12/05/15) CATARAC PHACOEMULS/ASPIR (03/29/14) ENDOSC POLYPECTOMY OF LG INTEST (05/12/13) ESOPHAGOGASTRODUODENOSCOPY [EGD] W/CLOSED BIOPSY (05/12/13) INSERT LENS AT CATAR EXT (03/29/14) INSERTION OF INFUSION DEV INTO L FEMOR VEIN, PERC APPROACH (04/22/19) TRANSFUSE NONAUT FROZEN PLASMA IN PERIPH VEIN, PERC (04/22/19) TRANSFUSE NONAUT RED BLOOD CELLS IN CENTRAL VEIN, PERC (04/22/19) ABX Reporting Has patient been on IV antibiotics over the past 48 hours?: No
[2021-09-08] MEDS: PANTOPRAZOLE 40 MG TABLET PO SCH (06:03)
[2021-09-08] MEDS: BUDESONIDE 0.5 MG/2 ML NEB INH SCH ×3 (08:06→18:19)
[2021-09-08] MEDS: INSULIN ASPART 300 UNIT/3 ML PEN SUBQ SCH ×4 (08:06→20:43)
[2021-09-08] MEDS: diltiaZEM CD 180 MG CAPSULE PO SCH (10:43)
[2021-09-08] MEDS: ASPIRIN EC 325 MG TABLET PO SCH (10:43)
[2021-09-08] MEDS: FERROUS GLUCONATE 324 MG TABLET PO SCH (10:43)
[2021-09-08] MEDS: MULTIVITAMIN W/MINERALS TABLET PO SCH (10:43)
[2021-09-08] MEDS: DOCUSATE SODIUM 250 MG CAPSULE PO SCH (10:43)
[2021-09-08] MEDS: SENNA 8.6 MG TABLET PO SCH (10:43)
[2021-09-08] MEDS: INSULIN GLARGINE 300 UNIT/3 ML PEN SUBQ SCH ×2 (10:44→10:51)
[2021-09-08] MEDS: ENOXAPARIN 40 MG/0.4 ML SYRINGE SUBQ SCH (10:44)
[2021-09-08] MEDS: CHOLECALCIFEROL 25 MCG TABLET PO SCH (10:44)
[2021-09-08] MEDS: polyethylene glycoL 3350 17 GM PACKET PO SCH (10:45)
[2021-09-08] MEDS: ZINC OXIDE 20% OINT 30 GM TUBE TOP PRN (10:52)
[2021-09-08] MEDS: predniSONE 10 MG TABLET PO SCH (10:58)
[2021-09-08] MEDS: ALBUTEROL NEB 2.5 MG/3 ML INH PRN (18:19)
[2021-09-08] MEDS: traZODone 50 MG TABLET PO SCH (20:41)
[2021-09-08] MEDS: GABAPENTIN 100 MG CAPSULE PO SCH (20:41)
[2021-09-08] MEDS: ATORVASTATIN 40 MG TABLET PO SCH (20:41)
[2021-09-09] MEDS: SODIUM CHLORIDE FLUSH 0.9% 10 ML SYRINGE IVP SCH ×3 (02:27→17:39)
[2021-09-09] MEDS: HYDROmorphone 2 MG TABLET PO PRN ×3 (02:59→17:39)
[2021-09-09 05:45] LABS: CALCIUM 7.9 mg/dL (8.5-10.3); CREATININE 1.1 mg/dL (0.6-1.2); POTASSIUM 3.3 mmol/L (3.5-5.0)
[2021-09-09] MEDS: PANTOPRAZOLE 40 MG TABLET PO SCH (06:33)
[2021-09-09] MEDS: BUDESONIDE 0.5 MG/2 ML NEB INH SCH ×2 (07:31→18:15)
[2021-09-09] MEDS: FERROUS GLUCONATE 324 MG TABLET PO SCH (07:52)
[2021-09-09] MEDS: predniSONE 10 MG TABLET PO SCH (07:52)
[2021-09-09] MEDS: MULTIVITAMIN W/MINERALS TABLET PO SCH (07:52)
[2021-09-09] MEDS: INSULIN ASPART 300 UNIT/3 ML PEN SUBQ SCH ×4 (07:54→21:03)
[2021-09-09] MEDS ORDERED: POTASSIUM CHLORIDE 20 MEQ TABLET PO ONE (09:22)
[2021-09-09] MEDS: CHOLECALCIFEROL 25 MCG TABLET PO SCH (09:41)
[2021-09-09] MEDS: ASPIRIN EC 325 MG TABLET PO SCH (09:41)
[2021-09-09] MEDS: DOCUSATE SODIUM 250 MG CAPSULE PO SCH (09:42)
[2021-09-09] MEDS: polyethylene glycoL 3350 17 GM PACKET PO SCH (09:42)
[2021-09-09] MEDS: diltiaZEM CD 180 MG CAPSULE PO SCH (09:42)
[2021-09-09] MEDS: ENOXAPARIN 40 MG/0.4 ML SYRINGE SUBQ SCH (09:42)
[2021-09-09] MEDS: INSULIN GLARGINE 300 UNIT/3 ML PEN SUBQ SCH (09:42)
[2021-09-09] MEDS: SENNA 8.6 MG TABLET PO SCH (09:43)
[2021-09-09 10:50] LABS: ESTIMATED AVERAGE GLUCOSE 146 mg/dL (70-100); HEMOGLOBIN A1c% 6.7 % (4.27-6.07)
--- NOTE | 2021-09-09 15:43 | PROVIDER PROGRESS NOTE ---
Assessment/Plan - Problem List (1) Chronic respiratory failure with hypoxia Assessment/Plan: 09/09 acute phrase is resolved. pt has no acute respiratory distress, he had 96% on 3 lpm of O2. it is likely caused by combination of her obesity respiratory syndrome, severe COPD, Covid 19 infection, OMERO and physical deconditioning. pt is pending for machine of non-invasive ventilation for his d/c plan. (3) Pneumonia due to COVID-19 virus resolved. pt has no acute respiratory distress. He has now completed Remdesivir, Decadron and a course of IV antibiotics. (4) Severe COPD pt has hx of severe COPD and heavy smoker in the past. He was not on home O2 before this admission. He has been on Prednisone 20 mg daily orally once he has finished a 10 day co urse of Decadron. We will plan to taper the Prednisone very slowly, over many weeks. Today is day #1 of prednisone 15 mg for a week, and should be tapered by 5 mg every week. We started him on inhaled Budesonide and Singulair and continue the inhaled albuterol nebulizer. There is no change today. (5) Hypernatremia resolved resolved (6) Skin tear on buttocks pt has scattered open wounds within the gluteal cleft with blanching, pink non- granulating tissue. 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 (9) Sleep apnea on CPAP pt has hx of sleep apnea, his CPAP was recalled but did not be replaced by the company. plan: hopefully pt would have noninvasive ventilator on today and we will then put that on him by RT (10) Iron deficiency anemia Impression: Hemoglobin is stable. We have resumed home oral iron. (11) Gram-positive bacteremia Impression: Resolved. This is felt to be contaminant. Repeat cultures have been negative to date and the other set was negative. Antibiotics have been discontinued. (12) Hypotension Impression: Resolved, Levophed was turned off (13) Accelerated junctional rhythm Resolved. Possibly due to COVID heart We will continue to monitor his rhythm on telemetry. (14) Hyperkalemia Impression: Resolved (15)physical deconditioning pt present significant physical deconditioning, but pt also is full code status, continue PT/OT, continue support for pt (16)weakness continue PT/OT. consulted with group social worker for placement for SNF. - Current Meds Current Meds: Current Medications Generic Name Dose Route Start Last Admin Trade Name Freq PRN Reason Stop Dose Admin Acetaminophen 650 mg 09/04/21 09:45 09/07/21 16:38 Acetaminophen 325 Mg Tablet PO 650 mg Q4HR PRN Administration Pain or Fever > 38C (100.4F) Albuterol 2.5 mg 08/19/21 11:45 09/08/21 18:19 Albuterol Neb 2.5 Mg/3 Ml INH 2.5 mg Q4HR PRN Administration Wheezing Aspirin 325 mg 08/29/21 09:00 09/09/21 09:41 Aspirin Ec 325 Mg Tablet PO 325 mg DAILY DINESH Administration Atorvastatin Calcium 40 mg 08/19/21 21:00 09/08/21 20:41 Atorvastatin 40 Mg Tablet PO 40 mg QPM DINESH Administration Budesonide 0.5 mg 08/28/21 19:00 09/09/21 07:31 Budesonide 0.5 Mg/2 Ml Neb INH 0.5 mg RTBID DINESH Administration Chlorhexidine Gluconate 15 ml 08/31/21 09:34 09/05/21 10:38 Chlorhexidine Gluconate 15 Ml Udc PO 15 ml BID PRN Administration ORAL CARE Cholecalciferol 50 mcg 08/21/21 09:00 09/09/21 09:41 Cholecalciferol 25 Mcg Tablet PO 50 mcg DAILY DINESH Administration Diltiazem HCl 180 mg 09/03/21 11:00 09/09/21 09:42 Diltiazem Cd 180 Mg Capsule PO 180 mg DAILY DINESH Administration Docusate Sodium 250 - 500 mg 08/26/21 09:00 09/09/21 09:42 Docusate Sodium 250 Mg Capsule PO Not Given DAILY DINESH Enoxaparin Sodium 40 mg 08/27/21 09:00 09/09/21 09:42 Enoxaparin 40 Mg/0.4 Ml Syringe SUBQ 40 mg DAILY DINESH Administration Ferrous Gluconate 324 mg 09/02/21 08:00 09/09/21 07:52 Ferrous Gluconate 324 Mg Tablet PO 324 mg DAILYWM DINESH Administration Gabapentin 100 mg 08/31/21 21:00 09/08/21 20:41 Gabapentin 100 Mg Capsule PO 100 mg QPM DINESH Administration Hydromorphone HCl 1 mg 09/06/21 09:52 09/09/21 09:49 Hydromorphone 2 Mg Tablet PO 1 mg Q6HR PRN Administration PAIN Dextrose 1,000 mls @ 0 mls/hr 09/05/21 02:00 09/05/21 01:34 D5w IV 30 mls/hr .Q0M DINESH Administration TKO Insulin Aspart 2 - 10 unit 09/08/21 12:00 09/09/21 11:44 Insulin Aspart 300 Unit/3 Ml Pen SUBQ 2 unit 0800,1200,1700,2100 DINESH Administration Protocol Insulin Glargine 30 unit 09/08/21 10:30 09/09/21 09:42 Insulin Glargine 300 Unit/3 Ml Pen SUBQ 30 unit DAILY DINESH Administration Lidocaine 1 patch 08/29/21 14:54 09/07/21 16:38 Lidocaine Patch 5% TOP 1 patch DAILY PRN Administration PAIN Mineral Oil 1 applic 08/30/21 11:01 09/04/21 11:58 Min Oil/Dimethicon/Coconut Oil 92 Gm Tube TOP 1 applic PRN PRN Administration Skin Care Multi-Ingredient Ointment 1 applic 08/22/21 21:41 09/08/21 10:52 Zinc Oxide 20% Oint 30 Gm Tube TOP 1 applic PRN PRN Administration Skin Care Multivitamins/Minerals 1 tab 09/05/21 09:00 09/09/21 07:52 Multivitamin W/Minerals Tablet PO 1 tab DAILYWM DINESH Administration Pantoprazole Sodium 40 mg 08/31/21 07:00 09/09/21 06:33 Pantoprazole 40 Mg Tablet PO 40 mg QDAC DINESH Administration Polyethylene Glycol 17 gm 08/22/21 09:00 09/09/21 09:42 Polyethylene Glycol 3350 17 Gm Packet PO Not Given DAILY DINESH Prednisone 15 mg 09/07/21 08:00 09/09/21 07:52 Prednisone 10 Mg Tablet PO 09/13/21 09:00 15 mg DAILYWM DINESH Administration Senna 8.6 - 17.2 mg 08/26/21 09:00 09/09/21 09:43 Senna 8.6 Mg Tablet PO Not Given DAILY DINESH Sodium Chloride 10 ml 08/19/21 17:00 09/09/21 11:35 Sodium Chloride Flush 0.9% 10 Ml Syringe IVP 10 ml 0100,0900,1700 DINESH Administration Sodium Chloride 20 ml 08/22/21 04:43 09/04/21 11:57 Sodium Chloride Flush 0.9% 10 Ml Syringe IVP 30 ml PRN PRN Administration After Blood Draw Trazodone HCl 50 mg 08/31/21 21:00 09/08/21 20:41 Trazodone 50 Mg Tablet PO 50 mg QPM DINESH Administration - Lab Result Fish Bone Diagrams: 09/05/21 04:51 09/09/21 05:19 - Additional Planning My Orders: My Active Orders 09/10/21 05:00 CBC - COMP BLD CT W/AUTO DIFF [HEME] DAILYLAB 09/11/21 05:00 CBC - COMP BLD CT W/AUTO DIFF [HEME] DAILYLAB 09/12/21 05:00 CBC - COMP BLD CT W/AUTO DIFF [HEME] DAILYLAB 09/13/21 05:00 CBC - COMP BLD CT W/AUTO DIFF [HEME] DAILYLAB 09/14/21 05:00 CBC - COMP BLD CT W/AUTO DIFF [HEME] DAILYLAB Subjective - Subjective Patient Reports: Feeling Better, Resting Comfortably Objective Vital Signs: Vital Signs - 24 hr 09/08/21 09/08/21 09/08/21 16:20 18:22 22:20 Temperature 37.1 C Heart Rate 102 H 86 Heart Rate [ 114 H Radial] Respiratory 20 23 Rate Blood Pressure 135/67 H [Right Radial artery] O2 Saturation 93 09/09/21 09/09/21 09/09/21 00:45 01:36 07:33 Temperature 36.7 C Heart Rate 72 101 H Heart Rate [ 71 Radial] Respiratory 20 24 Rate Blood Pressure 144/77 H [Right Radial artery] O2 Saturation 96 09/09/21 07:59 Temperature 37 C Heart Rate Heart Rate [ 104 H Radial] Respiratory 18 Rate Blood Pressure 144/76 H [Right Radial artery] O2 Saturation 96 Oxygen O2 Source Nasal cannula I&O (Last 24 Hrs): Intake and Output Totals x24h 09/07/21 09/08/21 09/09/21 23:59 23:59 23:59 Intake Total 1690 1456 910 Output Total 2650 1300 800 Balance -960 156 110 General: Alert, Oriented x3, Cooperative, No acute distress HEENT: Atraumatic Neck: Supple Lymphatic: no adenopathy Neuro: Alert, Non Focal, Oriented Times 3 Cardiovascular: Regular rate, Normal S1, Normal S2 Respiratory: Chest non-tender, No respiratory distress Abdomen: Normal bowel sounds, Soft Extremities: Normal pulses - Results Results: Laboratory Results WBC 7.0 x10^3/uL (4.8-10.8) 09/05/21 04:51 RBC 2.84 10^6/uL (4.70-6.10) L 09/05/21 04:51 Hgb 8.1 g/dL (14.0-18.0) L 09/05/21 04:51 Hct 27.3 % (42.0-52.0) L 09/05/21 04:51 MCV 96.1 fL (80.0-94.0) H 09/05/21 04:51 MCH 28.5 pg (27.0-31.0) 09/05/21 04:51 MCHC 29.7 g/dL (32.0-36.0) L 09/05/21 04:51 RDW 17.9 % (12.0-15.0) H 09/05/21 04:51 Plt Count 203 10^3/uL (130-450) 09/05/21 04:51 MPV 9.6 fL (7.4-11.4) 09/05/21 04:51 Neut # (Auto) 4.8 10^3/uL (1.5-6.6) 09/05/21 04:51 Lymph # (Auto) 1.4 10^3/uL (1.5-3.5) L 09/05/21 04:51 [place] # (Auto) 0.5 10^3/uL (0.0-1.0) 09/05/21 04:51 Eos # (Auto) 0.2 10^3/uL (0.0-0.7) 09/05/21 04:51 Baso # (Auto) 0.0 10^3/uL (0.0-0.1) 09/05/21 04:51 Absolute Nucleated RBC 0.00 x10^3/uL 09/05/21 04:51 Total Counted 100 08/29/21 05:45 Band Neuts % (Manual) Not Reportable 08/31/21 05:35 Abnorm Lymph % (Manual) Not Reportable 08/31/21 05:35 Metamyelocytes % 1 % (-0) H 08/27/21 04:45 Myelocytes % 1 % (-0) H 08/27/21 04:45 Nucleated RBC % 0.0 /100WBC 09/05/21 04:51 Neutrophils # (Manual) Not Reportable 08/31/21 05:35 Lymphocytes # (Manual) Not Reportable 08/31/21 05:35 Monocytes # (Manual) Not Reportable 08/31/21 05:35 Eosinophils # (Manual) Not Reportable 08/31/21 05:35 Basophils # (Manual) Not Reportable 08/31/21 05:35 Nucleated RBCs 1 % 08/27/21 04:45 Differential Comment MANUAL=AUTO DIFF 08/31/21 05:35 WBC Morphology NORMAL APPEARANCE (NORMAL) 08/25/21 04:50 Platelet Estimate NORMAL (130-450,000) (NORMAL) 08/31/21 05:35 Platelet Morphology NORMAL APPEARANCE (NORMAL) 08/31/21 05:35 RBC Morph Micro Appear 1+ HYPOCHROMASIA (NORMAL) 08/31/21 05:35 PT 15.3 secs (9.9-12.6) H 08/19/21 13:44 INR 1.4 (0.8-1.2) H 08/19/21 13:44 D-Dimer 527.1 ng/mL (200.0-255.0) H 08/22/21 04:45 Bld Gas Analysis Time 52208/29/21 05:19 Sample Site RIGHT RADIAL 08/29/21 05:19 ABG pH 7.39 (7.35-7.45) 08/29/21 05:19 ABG pCO2 52 mmHg (34-45) H 08/29/21 05:19 ABG pO2 77 mmHg (80-100) L 08/29/21 05:19 ABG HCO3 30.5 mmol/L (22.0-26.0) H 08/29/21 05:19 ABG Total CO2 32.1 MMOL/L (21.0-29.0) H 08/29/21 05:19 ABG O2 Saturation 94 % (94-98) 08/29/21 05:19 ABG Base Excess 4.7 mmol/L (-2.0-3.0) H 08/29/21 05:19 Endy Test POSITIVE 08/29/21 05:19 VBG pH 7.399 (7.31-7.41) 09/05/21 04:51 Ionized Calcium 1.05 mmol/L (1.15-1.33) L 09/05/21 04:51 Respiration Rate 10 b/min 08/29/21 05:19 O2 Delivery Device BiPAP 08/29/21 05:19 Vent Mode ASSIST/CONTROL 08/25/21 13:17 FiO2 50.00 08/29/21 05:19 Tidal Volume 500 mL 08/25/21 13:17 PEEP 7 cmH2O 08/25/21 13:17 EPAP 8 cmH2O 08/29/21 05:19 IPAP 16 cmH2O 08/29/21 05:19 Sodium 138 mmol/L (135-145) 09/09/21 05:19 Potassium 3.3 mmol/L (3.5-5.0) L 09/09/21 05:19 Chloride 104 mmol/L (101-111) 09/09/21 05:19 Carbon Dioxide 26 mmol/L (21-32) 09/09/21 05:19 Anion Gap 8.0 (6-13) 09/09/21 05:19 BUN 12 mg/dL (6-20) 09/09/21 05:19 Creatinine 1.1 mg/dL (0.6-1.2) 09/09/21 05:19 Estimated GFR (MDRD) 65 (>89) L 09/09/21 05:19 Glucose 98 mg/dL (70-100) 09/09/21 05:19 POC Whole Bld Glucose 151 mg/dL (70 - 100) H 09/09/21 11:36 Estimat Average Glucose 146 mg/dL (70-100) H 09/09/21 05:20 Hemoglobin A1c % 6.7 % (4.27-6.07) H 09/09/21 05:20 Lactic Acid 1.3 mmol/L (0.5-2.2) 08/19/21 10:05 Calcium 7.9 mg/dL (8.5-10.3) L 09/09/21 05:19 Ionized Calcium YES 08/26/21 04:40 Phosphorus 4.2 mg/dL (2.5-4.6) 09/05/21 04:51 Magnesium 2.3 mg/dL (1.7-2.8) 09/05/21 04:51 Total Bilirubin 0.6 mg/dL (0.2-1.0) 08/27/21 04:45 Direct Bilirubin 0.1 mg/dL (0.1-0.5) 08/24/21 04:20 AST 29 IU/L (10-42) 08/27/21 04:45 ALT 24 IU/L (10-60) 08/27/21 04:45 Alkaline Phosphatase 61 IU/L (42-121) 08/27/21 04:45 Troponin I High Sens 11.4 ng/L (2.3-19.7) 08/19/21 10:05 C-Reactive Protein 6.6 mg/dL (0-1.0) H 08/21/21 04:53 B-Natriuretic Peptide 54 pg/mL (5-100) 08/19/21 10:05 Total Protein 6.4 g/dL (6.7-8.2) L 08/27/21 04:45 Albumin 2.6 g/dL (3.2-5.5) L 08/30/21 04:40 Globulin 3.9 g/dL (2.1-4.2) 08/27/21 04:45 Albumin/Globulin Ratio 0.6 (1.0-2.2) L 08/27/21 04:45 Prealbumin 26 mg/dL (18-45) 08/27/21 04:45 25-OH Vitamin D Total 10 ng/mL (30-100) L 08/20/21 13:55 TSH 0.13 uIU/mL (0.34-5.60) L 08/21/21 04:00 Free T4 1.27 ng/dL (0.58-1.64) 08/21/21 04:00 Nasal Adenovirus (PCR) NOT DETECTED 08/19/21 10:15 Nasal B. parapertussis DNA (PCR) NOT DETECTED 08/19/21 10:15 Nasal Coronavir 229E PCR NOT DETECTED 08/19/21 10:15 Nasal Coronavir HKU1 PCR NOT DETECTED 08/19/21 10:15 Nasal Coronavir NL63 PCR NOT DETECTED 08/19/21 10:15 Nasal Coronavir OC43 PCR NOT DETECTED 08/19/21 10:15 Nasal Enterovir/Rhinovir PCR DETECTED A 08/19/21 10:15 Nasal Influenza B PCR NOT DETECTED 08/19/21 10:15 Nasal Influenza A PCR NOT DETECTED 08/19/21 10:15 Nasal Parainfluen 1 PCR NOT DETECTED 08/19/21 10:15 Nasal Parainfluen 2 PCR NOT DETECTED 08/19/21 10:15 Nasal Parainfluen 3 PCR NOT DETECTED 08/19/21 10:15 Nasal Parainfluen 4 PCR NOT DETECTED 08/19/21 10:15 Nasal RSV (PCR) NOT DETECTED 08/19/21 10:15 Nasal Screen MRSA (PCR) NEGATIVE (NEGATIVE) 08/19/21 13:30 Nasal B.pertussis DNA PCR NOT DETECTED 08/19/21 10:15 Nasal C.pneumoniae (PCR) NOT DETECTED 08/19/21 10:15 Richy Human Metapneumo PCR NOT DETECTED 08/19/21 10:15 Nasal M.pneumoniae (PCR) NOT DETECTED 08/19/21 10:15 Nasal SARS-CoV-2 (PCR) DETECTED A 08/19/21 10:15 Ref Lab Test Result Cancelled 08/19/21 10:05 - Procedures Procedures: Procedures ASSISTANCE WITH RESPIRATORY VENTILATION, <24 HRS, CPAP (12/05/15) CATARAC PHACOEMULS/ASPIR (03/29/14) ENDOSC POLYPECTOMY OF LG INTEST (05/12/13) ESOPHAGOGASTRODUODENOSCOPY [EGD] W/CLOSED BIOPSY (05/12/13) INSERT LENS AT CATAR EXT (03/29/14) INSERTION OF INFUSION DEV INTO L FEMOR VEIN, PERC APPROACH (04/22/19) TRANSFUSE NONAUT FROZEN PLASMA IN PERIPH VEIN, PERC (04/22/19) TRANSFUSE NONAUT RED BLOOD CELLS IN CENTRAL VEIN, PERC (04/22/19) ABX Reporting Has patient been on IV antibiotics over the past 48 hours?: No Current Medications - Current Medications Current Medications: Active Medications Acetaminophen (Acetaminophen 325 Mg Tablet) 650 mg PO Q4HR PRN PRN Reason: Pain or Fever > 38C (100.4F) Last Admin: 09/07/21 16:38 Dose: 650 mg Albuterol (Albuterol Neb 2.5 Mg/3 Ml) 2.5 mg INH Q4HR PRN PRN Reason: Wheezing Last Admin: 09/08/21 18:19 Dose: 2.5 mg Aspirin (Aspirin Ec 325 Mg Tablet) 325 mg PO DAILY [facility] Last Admin: 09/09/21 09:41 Dose: 325 mg Atorvastatin Calcium (Atorvastatin 40 Mg Tablet) 40 mg PO QPM [facility] Last Admin: 09/08/21 20:41 Dose: 40 mg Budesonide (Budesonide 0.5 Mg/2 Ml Neb) 0.5 mg INH RTBID [facility] Last Admin: 09/09/21 07:31 Dose: 0.5 mg Chlorhexidine Gluconate (Chlorhexidine Gluconate 15 Ml Udc) 15 ml PO BID PRN PRN Reason: ORAL CARE Last Admin: 09/05/21 10:38 Dose: 15 ml Cholecalciferol (Cholecalciferol 25 Mcg Tablet) 50 mcg PO DAILY [facility] Last Admin: 09/09/21 09:41 Dose: 50 mcg Diltiazem HCl (Diltiazem Cd 180 Mg Capsule) 180 mg PO DAILY [facility] Last Admin: 09/09/21 09:42 Dose: 180 mg Docusate Sodium (Docusate Sodium 250 Mg Capsule) 250 - 500 mg PO DAILY [facility] Last Admin: 09/09/21 09:42 Dose: Not Given Enoxaparin Sodium (Enoxaparin 40 Mg/0.4 Ml Syringe) 40 mg SUBQ DAILY [facility] Last Admin: 09/09/21 09:42 Dose: 40 mg Ferrous Gluconate (Ferrous Gluconate 324 Mg Tablet) 324 mg PO DAILYWM [facility] Last Admin: 09/09/21 07:52 Dose: 324 mg Gabapentin (Gabapentin 100 Mg Capsule) 100 mg PO QPM [facility] Last Admin: 09/08/21 20:41 Dose: 100 mg Hydromorphone HCl (Hydromorphone 2 Mg Tablet) 1 mg PO Q6HR PRN PRN Reason: PAIN Last Admin: 09/09/21 09:49 Dose: 1 mg Dextrose (D5w) 1,000 mls @ 0 mls/hr IV .Q0M [facility] Last Admin: 09/05/21 01:34 Dose: 30 mls/hr Insulin Aspart (Insulin Aspart 300 Unit/3 Ml Pen) 2 - 10 unit SUBQ 0800,1200,1700,2100 [facility]; Protocol Last Admin: 09/09/21 11:44 Dose: 2 unit Insulin Glargine (Insulin Glargine 300 Unit/3 Ml Pen) 30 unit SUBQ DAILY [facility] Last Admin: 09/09/21 09:42 Dose: 30 unit Lidocaine (Lidocaine Patch 5%) 1 patch TOP DAILY PRN PRN Reason: PAIN Last Admin: 09/07/21 16:38 Dose: 1 patch Mineral Oil (Min Oil/Dimethicon/Coconut Oil 92 Gm Tube) 1 applic TOP PRN PRN PRN Reason: Skin Care Last Admin: 09/04/21 11:58 Dose: 1 applic Multi-Ingredient Ointment (Zinc Oxide 20% Oint 30 Gm Tube) 1 applic TOP PRN PRN PRN Reason: Skin Care Last Admin: 09/08/21 10:52 Dose: 1 applic Multivitamins/Minerals (Multivitamin W/Minerals Tablet) 1 tab PO DAILYWM [facility] Last Admin: 09/09/21 07:52 Dose: 1 tab Ondansetron HCl (Ondansetron Odt 4 Mg Tablet) 4 mg TL Q6HR PRN PRN Reason: Nausea / Vomiting Pantoprazole Sodium (Pantoprazole 40 Mg Tablet) 40 mg PO QDAC [facility] Last Admin: 09/09/21 06:33 Dose: 40 mg Polyethylene Glycol (Polyethylene Glycol 3350 17 Gm Packet) 17 gm PO DAILY [facility] Last Admin: 09/09/21 09:42 Dose: Not Given Prednisone (Prednisone 10 Mg Tablet) 15 mg PO DAILYWM [facility] Stop: 09/13/21 09:00 Last Admin: 09/09/21 07:52 Dose: 15 mg Senna (Senna 8.6 Mg Tablet) 8.6 - 17.2 mg PO DAILY [facility] Last Admin: 09/09/21 09:43 Dose: Not Given Sodium Chloride (Sodium Chloride Flush 0.9% 10 Ml Syringe) 10 ml IVP 0100,0900,1700 [facility] Last Admin: 09/09/21 11:35 Dose: 10 ml Sodium Chloride (Sodium Chloride Flush 0.9% 10 Ml Syringe) 20 ml IVP PRN PRN PRN Reason: After Blood Draw Last Admin: 09/04/21 11:57 Dose: 30 ml Trazodone HCl (Trazodone 50 Mg Tablet) 50 mg PO QPM [facility] Last Admin: 09/08/21 20:41 Dose: 50 mg Omeprazole 40 mg PO DAILY 03/06/13 Aspirin [Aspir-Shannen] 325 mg PO DAILY 01/17/14 Atorvastatin Calcium 40 mg PO QPM 04/22/19 Diltiazem HCl [Diltiazem ER] 180 mg PO DAILY 04/22/19 Gabapentin [Neurontin] 100 mg PO QPM 04/22/19 Ipratropium/Albuterol [Duoneb] 3 ml INH Q6H 04/22/19 Furosemide 80 mg PO BID 04/24/19 Fluticasone/Salmeterol [Advair 500-50 Diskus] 1 each INH BID 05/31/19 Insulin Glargine [Lantus Solostar] 0 - 58 unit IM DAILY 10/09/20 Ferrous Gluconate 324 mg PO .[id number] 08/19/21 Losartan [Cozaar] 50 mg PO DAILY 08/19/21 Potassium Chloride [K-Dur] 20 meq PO BID 08/19/21 metFORMIN [Glucophage] 1,000 mg PO DAILY 08/19/21
[2021-09-09] MEDS: ZINC OXIDE 20% OINT 30 GM TUBE TOP PRN (17:39)
[2021-09-09] MEDS: traZODone 50 MG TABLET PO SCH (21:02)
[2021-09-09] MEDS: GABAPENTIN 100 MG CAPSULE PO SCH (21:02)
[2021-09-09] MEDS: ATORVASTATIN 40 MG TABLET PO SCH (21:02)
[2021-09-10 05:35] LABS: BASOPHILS % (AUTO) 0.5 %; EOSINOPHILS # (AUTO) 0.1 10^3/uL (0.0-0.7); EOSINOPHILS % (AUTO) 1.7 %; HCT - HEMATOCRIT 30.1 % (42.0-52.0); HGB - HEMOGLOBIN 8.7 g/dL (14.0-18.0); LYMPHOCYTES # (AUTO) 1.6 10^3/uL (1.5-3.5); LYMPHOCYTES % (AUTO) 24.5 %; MEAN CORPUSCULAR HEMOGLOBIN 27.4 pg (27.0-31.0); MEAN CORPUSCULAR HGB CONC 28.9 g/dL (32.0-36.0); MEAN CORPUSCULAR VOLUME 94.7 fL (80.0-94.0); MEAN PLATELET VOLUME 8.8 fL (7.4-11.4); MONOCYTES # (AUTO) 0.7 10^3/uL (0.0-1.0); MONOCYTES % (AUTO) 11.1 %; NEUTROPHILS % (AUTO) 61.7 %; PLT - PLATELET COUNT 160 10^3/uL (130-450); RED BLOOD COUNT 3.18 10^6/uL (4.70-6.10); RED CELL DISTRIBUTION WIDTH 18.5 % (12.0-15.0); WHITE BLOOD COUNT 6.5 x10^3/uL (4.8-10.8)
[2021-09-10 05:42] LABS: CALCIUM 8.1 mg/dL (8.5-10.3); CREATININE 1.1 mg/dL (0.6-1.2); POTASSIUM 3.5 mmol/L (3.5-5.0)
[2021-09-10] MEDS: SODIUM CHLORIDE FLUSH 0.9% 10 ML SYRINGE IVP SCH ×3 (05:44→17:10)
[2021-09-10 05:51] LABS: SLIDE REVIEW? Indicated
[2021-09-10] MEDS: PANTOPRAZOLE 40 MG TABLET PO SCH (06:06)
[2021-09-10] MEDS: HYDROmorphone 2 MG TABLET PO PRN ×3 (06:11→21:52)
[2021-09-10] MEDS: ACETAMINOPHEN 325 MG TABLET PO PRN ×3 (06:11→21:52)
[2021-09-10 06:28] LABS: PLATELET ESTIMATE, MANUAL NORMAL (130-450,000) (NORMAL); PLATELET MORPHOLOGY NORMAL APPEARANCE (NORMAL); WBC MORPHOLOGY (MULTIPLE) NORMAL APPEARANCE (NORMAL)
[2021-09-10] MEDS: BUDESONIDE 0.5 MG/2 ML NEB INH SCH ×3 (07:18→17:47)
[2021-09-10] MEDS: ALBUTEROL NEB 2.5 MG/3 ML INH PRN ×2 (07:19→17:46)
[2021-09-10] MEDS: INSULIN ASPART 300 UNIT/3 ML PEN SUBQ SCH ×4 (07:49→21:53)
[2021-09-10] MEDS: polyethylene glycoL 3350 17 GM PACKET PO SCH (07:51)
[2021-09-10] MEDS: ENOXAPARIN 40 MG/0.4 ML SYRINGE SUBQ SCH (09:53)
[2021-09-10] MEDS: INSULIN GLARGINE 300 UNIT/3 ML PEN SUBQ SCH (09:53)
[2021-09-10] MEDS: SENNA 8.6 MG TABLET PO SCH (09:54)
[2021-09-10] MEDS: predniSONE 10 MG TABLET PO SCH (09:55)
[2021-09-10] MEDS: ASPIRIN EC 325 MG TABLET PO SCH (09:55)
[2021-09-10] MEDS: FERROUS GLUCONATE 324 MG TABLET PO SCH (09:55)
[2021-09-10] MEDS: DOCUSATE SODIUM 250 MG CAPSULE PO SCH (09:55)
[2021-09-10] MEDS: MULTIVITAMIN W/MINERALS TABLET PO SCH (09:55)
[2021-09-10] MEDS: diltiaZEM CD 180 MG CAPSULE PO SCH (09:56)
[2021-09-10] MEDS: CHOLECALCIFEROL 25 MCG TABLET PO SCH (09:56)
--- NOTE | 2021-09-10 14:37 | PROVIDER PROGRESS NOTE ---
Assessment/Plan - Problem List (1) Chronic respiratory failure with hypoxia Assessment/Plan: 09/10 stable. pt had a new noninvasive ventilator BiPAP on last night, he tolerate very well for the new machine, he had a good sleep on last night. continue consult with professor of social work to plan d/c to SNF 09/09 acute phrase is resolved. pt has no acute respiratory distress, he had 96% on 3 lpm of O2. it is likely caused by combination of her obesity respiratory syndrome, severe COPD, Covid 19 infection, OMERO and physical deconditioning. pt is pending for machine of non-invasive ventilation for his d/c plan. (3) Pneumonia due to COVID-19 virus resolved. pt has no acute respiratory distress. He has now completed Remdesivir, Decadron and a course of IV antibiotics. (4) Severe COPD pt has hx of severe COPD and heavy smoker in the past. He was not on home O2 before this admission. He has been on Prednisone 20 mg daily orally once he has finished a 10 day course of Decadron. We will plan to taper the Prednisone very slowly, over many weeks. Today is day #1 of prednisone 15 mg for a week, and should be tapered by 5 mg every week. We started him on inhaled Budesonide and Singulair and continue the inhaled albuterol nebulizer. There is no change today. (5) Hypernatremia resolved resolved (6) Skin tear on buttocks pt has scattered open wounds within the gluteal cleft with blanching, pink non- granulating tissue. 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 (9) Sleep apnea on CPAP pt has hx of sleep apnea, his CPAP was recalled but did not be replaced by the company. plan: hopefully pt would have noninvasive ventilator on today and we will then put that on him by RT (10) Iron deficiency anemia Impression: Hemoglobin is stable. We have resumed home oral iron. (11) Gram-positive bacteremia Impression: Resolved. This is felt to be contaminant. Repeat cultures have been negative to date and the other set was negative. Antibiotics have been discontinued. (12) Hypotension Impression: Resolved, Levophed was turned off (13) Accelerated junctional rhythm Resolved. Possibly due to COVID heart We will continue to monitor his rhythm on telemetry. (14) Hyperkalemia Impression: Resolved (15)physical deconditioning pt present significant physical deconditioning, but pt also is full code status, continue PT/OT, continue support for pt (16)weakness continue PT/OT. consulted with professor of social work for placement for SNF. - Current Meds Current Meds: Current Medications Generic Name Dose Route Start Last Admin Trade Name Freq PRN Reason Stop Dose Admin Acetaminophen 650 mg 09/04/21 09:45 09/10/21 06:11 Acetaminophen 325 Mg Tablet PO 650 mg Q4HR PRN Administration Pain or Fever > 38C (100.4F) Albuterol 2.5 mg 08/19/21 11:45 09/10/21 07:19 Albuterol Neb 2.5 Mg/3 Ml INH 2.5 mg Q4HR PRN Administration Wheezing Aspirin 325 mg 08/29/21 09:00 09/10/21 09:55 Aspirin Ec 325 Mg Tablet PO 325 mg DAILY DINESH Administration Atorvastatin Calcium 40 mg 08/19/21 21:00 09/09/21 21:02 Atorvastatin 40 Mg Tablet PO 40 mg QPM DINESH Administration Budesonide 0.5 mg 08/28/21 19:00 09/10/21 07:18 Budesonide 0.5 Mg/2 Ml Neb INH 0.5 mg RTBID DINESH Administration Chlorhexidine Gluconate 15 ml 08/31/21 09:34 09/05/21 10:38 Chlorhexidine Gluconate 15 Ml Udc PO 15 ml BID PRN Administration ORAL CARE Cholecalciferol 50 mcg 08/21/21 09:00 09/10/21 09:56 Cholecalciferol 25 Mcg Tablet PO 50 mcg DAILY DINESH Administration Diltiazem HCl 180 mg 09/03/21 11:00 09/10/21 09:56 Diltiazem Cd 180 Mg Capsule PO 180 mg DAILY DINESH Administration Docusate Sodium 250 - 500 mg 08/26/21 09:00 09/10/21 09:55 Docusate Sodium 250 Mg Capsule PO 250 mg DAILY DINESH Administration Enoxaparin Sodium 40 mg 08/27/21 09:00 09/10/21 09:53 Enoxaparin 40 Mg/0.4 Ml Syringe SUBQ 40 mg DAILY DINESH Administration Ferrous Gluconate 324 mg 09/02/21 08:00 09/10/21 09:55 Ferrous Gluconate 324 Mg Tablet PO 324 mg DAILYWM DINESH Administration Gabapentin 100 mg 08/31/21 21:00 09/09/21 21:02 Gabapentin 100 Mg Capsule PO 100 mg QPM DINESH Administration Hydromorphone HCl 1 mg 09/06/21 09:52 09/10/21 06:11 Hydromorphone 2 Mg Tablet PO 1 mg Q6HR PRN Administration PAIN Dextrose 1,000 mls @ 0 mls/hr 09/05/21 02:00 09/09/21 16:17 D5w IV Infused .Q0M DINESH Infusion TKO Insulin Aspart 2 - 10 unit 09/08/21 12:00 09/10/21 11:26 Insulin Aspart 300 Unit/3 Ml Pen SUBQ Not Given 0800,1200,1700,2100 [facility] Protocol Insulin Glargine 30 unit 09/08/21 10:30 09/10/21 09:53 Insulin Glargine 300 Unit/3 Ml Pen SUBQ 30 unit DAILY DINESH Administration Lidocaine 1 patch 08/29/21 14:54 09/07/21 16:38 Lidocaine Patch 5% TOP 1 patch DAILY PRN Administration PAIN Mineral Oil 1 applic 08/30/21 11:01 09/04/21 11:58 Min Oil/Dimethicon/Coconut Oil 92 Gm Tube TOP 1 applic PRN PRN Administration Skin Care Multi-Ingredient Ointment 1 applic 08/22/21 21:41 09/09/21 17:39 Zinc Oxide 20% Oint 30 Gm Tube TOP 1 applic PRN PRN Administration Skin Care Multivitamins/Minerals 1 tab 09/05/21 09:00 09/10/21 09:55 Multivitamin W/Minerals Tablet PO 1 tab DAILYWM DINESH Administration Pantoprazole Sodium 40 mg 08/31/21 07:00 09/10/21 06:06 Pantoprazole 40 Mg Tablet PO 40 mg QDAC DINESH Administration Polyethylene Glycol 17 gm 08/22/21 09:00 09/10/21 07:51 Polyethylene Glycol 3350 17 Gm Packet PO Not Given DAILY DINESH Prednisone 15 mg 09/07/21 08:00 09/10/21 09:55 Prednisone 10 Mg Tablet PO 09/13/21 09:00 15 mg DAILYWM DINESH Administration Senna 8.6 - 17.2 mg 08/26/21 09:00 09/10/21 09:54 Senna 8.6 Mg Tablet PO 8.6 mg DAILY DINESH Administration Sodium Chloride 10 ml 08/19/21 17:00 09/10/21 09:56 Sodium Chloride Flush 0.9% 10 Ml Syringe IVP 10 ml 0100,0900,1700 DINESH Administration Sodium Chloride 20 ml 08/22/21 04:43 09/04/21 11:57 Sodium Chloride Flush 0.9% 10 Ml Syringe IVP 30 ml PRN PRN Administration After Blood Draw Trazodone HCl 50 mg 08/31/21 21:00 09/09/21 21:02 Trazodone 50 Mg Tablet PO 50 mg QPM DINESH Administration - Lab Result Fish Bone Diagrams: 09/10/21 05:10 09/10/21 05:10 - Additional Planning My Orders: My Active Orders 09/11/21 05:00 CBC - COMP BLD CT W/AUTO DIFF [HEME] DAILYLAB 09/12/21 05:00 CBC - COMP BLD CT W/AUTO DIFF [HEME] DAILYLAB 09/13/21 05:00 CBC - COMP BLD CT W/AUTO DIFF [HEME] DAILYLAB 09/14/21 05:00 CBC - COMP BLD CT W/AUTO DIFF [HEME] DAILYLAB Subjective - Subjective Patient Reports: Feeling Better, Resting Comfortably Objective Vital Signs: Vital Signs - 24 hr 09/09/21 09/09/21 09/10/21 17:00 18:16 00:39 Temperature 37.1 C 36.2 C L Heart Rate 110 H Heart Rate [ 86 103 H Radial] Respiratory 18 23 20 Rate Blood Pressure 166/66 H 134/58 H [Right Radial artery] O2 Saturation 95 93 09/10/21 09/10/21 07:22 08:09 Temperature 36.4 C L Heart Rate 98 Heart Rate [ 106 H Radial] Respiratory 24 16 Rate Blood Pressure 137/75 H [Right Radial artery] O2 Saturation 94 Oxygen O2 Source Nasal cannula I&O (Last 24 Hrs): Intake and Output Totals x24h 09/08/21 09/09/21 09/10/21 23:59 23:59 23:59 Intake Total 1456 2570 450 Output Total 1300 1150 875 Balance 156 1420 -425 General: Alert, Oriented x3, Cooperative, No acute distress HEENT: Atraumatic Neck: Supple Lymphatic: no adenopathy Neuro: Alert, Non Focal, Oriented Times 3 Cardiovascular: Regular rate, Normal S1, Normal S2 Respiratory: Chest non-tender, No respiratory distress Abdomen: Normal bowel sounds, Soft Extremities: Normal pulses - Results Results: Laboratory Results WBC 6.5 x10^3/uL (4.8-10.8) 09/10/21 05:10 RBC 3.18 10^6/uL (4.70-6.10) L 09/10/21 05:10 Hgb 8.7 g/dL (14.0-18.0) L 09/10/21 05:10 Hct 30.1 % (42.0-52.0) L 09/10/21 05:10 MCV 94.7 fL (80.0-94.0) H 09/10/21 05:10 MCH 27.4 pg (27.0-31.0) 09/10/21 05:10 MCHC 28.9 g/dL (32.0-36.0) L 09/10/21 05:10 RDW 18.5 % (12.0-15.0) H 09/10/21 05:10 Plt Count 160 10^3/uL (130-450) 09/10/21 05:10 MPV 8.8 fL (7.4-11.4) 09/10/21 05:10 Neut # (Auto) 4.0 10^3/uL (1.5-6.6) 09/10/21 05:10 Lymph # (Auto) 1.6 10^3/uL (1.5-3.5) 09/10/21 05:10 [place]anan # (Auto) 0.7 10^3/uL (0.0-1.0) 09/10/21 05:10 Eos # (Auto) 0.1 10^3/uL (0.0-0.7) 09/10/21 05:10 Baso # (Auto) 0.0 10^3/uL (0.0-0.1) 09/10/21 05:10 Absolute Nucleated RBC 0.00 x10^3/uL 09/10/21 05:10 Total Counted 100 08/29/21 05:45 Band Neuts % (Manual) Not Reportable 08/31/21 05:35 Abnorm Lymph % (Manual) Not Reportable 08/31/21 05:35 Metamyelocytes % 1 % (-0) H 08/27/21 04:45 Myelocytes % 1 % (-0) H 08/27/21 04:45 Nucleated RBC % 0.0 /100WBC 09/10/21 05:10 Neutrophils # (Manual) Not Reportable 08/31/21 05:35 Lymphocytes # (Manual) Not Reportable 08/31/21 05:35 Monocytes # (Manual) Not Reportable 08/31/21 05:35 Eosinophils # (Manual) Not Reportable 08/31/21 05:35 Basophils # (Manual) Not Reportable 08/31/21 05:35 Nucleated RBCs 1 % 08/27/21 04:45 Differential Comment MANUAL=AUTO DIFF 08/31/21 05:35 Manual Slide Review Indicated 09/10/21 05:10 WBC Morphology NORMAL APPEARANCE (NORMAL) 09/10/21 05:10 Platelet Estimate NORMAL (130-450,000) (NORMAL) 09/10/21 05:10 Platelet Morphology NORMAL APPEARANCE (NORMAL) 09/10/21 05:10 RBC Morph Micro Appear 1+ ANISOCYTOSIS (NORMAL) 1+ HYPOCHROMASIA (NORMAL) 1+ POLYCHROMASIA (NORMAL) 09/10/21 05:10 RBC Morph Micro Appear 1+ ANISOCYTOSIS (NORMAL) 1+ HYPOCHROMASIA (NORMAL) 1+ POLYCHROMASIA (NORMAL) 09/10/21 05:10 RBC Morph Micro Appear 1+ ANISOCYTOSIS (NORMAL) 1+ HYPOCHROMASIA (NORMAL) 1+ POLYCHROMASIA (NORMAL) 09/10/21 05:10 PT 15.3 secs (9.9-12.6) H 08/19/21 13:44 INR 1.4 (0.8-1.2) H 08/19/21 13:44 D-Dimer 527.1 ng/mL (200.0-255.0) H 08/22/21 04:45 Bld Gas Analysis Time 52208/29/21 05:19 Sample Site RIGHT RADIAL 08/29/21 05:19 ABG pH 7.39 (7.35-7.45) 08/29/21 05:19 ABG pCO2 52 mmHg (34-45) H 08/29/21 05:19 ABG pO2 77 mmHg (80-100) L 08/29/21 05:19 ABG HCO3 30.5 mmol/L (22.0-26.0) H 08/29/21 05:19 ABG Total CO2 32.1 MMOL/L (21.0-29.0) H 08/29/21 05:19 ABG O2 Saturation 94 % (94-98) 08/29/21 05:19 ABG Base Excess 4.7 mmol/L (-2.0-3.0) H 08/29/21 05:19 Endy Test POSITIVE 08/29/21 05:19 VBG pH 7.399 (7.31-7.41) 09/05/21 04:51 Ionized Calcium 1.05 mmol/L (1.15-1.33) L 09/05/21 04:51 Respiration Rate 10 b/min 08/29/21 05:19 O2 Delivery Device BiPAP 08/29/21 05:19 Vent Mode ASSIST/CONTROL 08/25/21 13:17 FiO2 50.00 08/29/21 05:19 Tidal Volume 500 mL 08/25/21 13:17 PEEP 7 cmH2O 08/25/21 13:17 EPAP 8 cmH2O 08/29/21 05:19 IPAP 16 cmH2O 08/29/21 05:19 Sodium 141 mmol/L (135-145) 09/10/21 05:10 Potassium 3.5 mmol/L (3.5-5.0) 09/10/21 05:10 Chloride 105 mmol/L (101-111) 09/10/21 05:10 Carbon Dioxide 28 mmol/L (21-32) 09/10/21 05:10 Anion Gap 8.0 (6-13) 09/10/21 05:10 BUN 12 mg/dL (6-20) 09/10/21 05:10 Creatinine 1.1 mg/dL (0.6-1.2) 09/10/21 05:10 Estimated GFR (MDRD) 65 (>89) L 09/10/21 05:10 Glucose 97 mg/dL (70-100) 09/10/21 05:10 POC Whole Bld Glucose 129 mg/dL (70 - 100) H 09/10/21 11:18 Estimat Average Glucose 146 mg/dL (70-100) H 09/09/21 05:20 Hemoglobin A1c % 6.7 % (4.27-6.07) H 09/09/21 05:20 Lactic Acid 1.3 mmol/L (0.5-2.2) 08/19/21 10:05 Calcium 8.1 mg/dL (8.5-10.3) L 09/10/21 05:10 Ionized Calcium YES 08/26/21 04:40 Phosphorus 4.2 mg/dL (2.5-4.6) 09/05/21 04:51 Magnesium 2.3 mg/dL (1.7-2.8) 09/05/21 04:51 Total Bilirubin 0.6 mg/dL (0.2-1.0) 08/27/21 04:45 Direct Bilirubin 0.1 mg/dL (0.1-0.5) 08/24/21 04:20 AST 29 IU/L (10-42) 08/27/21 04:45 ALT 24 IU/L (10-60) 08/27/21 04:45 Alkaline Phosphatase 61 IU/L (42-121) 08/27/21 04:45 Troponin I High Sens 11.4 ng/L (2.3-19.7) 08/19/21 10:05 C-Reactive Protein 6.6 mg/dL (0-1.0) H 08/21/21 04:53 B-Natriuretic Peptide 54 pg/mL (5-100) 08/19/21 10:05 Total Protein 6.4 g/dL (6.7-8.2) L 08/27/21 04:45 Albumin 2.6 g/dL (3.2-5.5) L 08/30/21 04:40 Globulin 3.9 g/dL (2.1-4.2) 08/27/21 04:45 Albumin/Globulin Ratio 0.6 (1.0-2.2) L 08/27/21 04:45 Prealbumin 26 mg/dL (18-45) 08/27/21 04:45 25-OH Vitamin D Total 10 ng/mL (30-100) L 08/20/21 13:55 TSH 0.13 uIU/mL (0.34-5.60) L 08/21/21 04:00 Free T4 1.27 ng/dL (0.58-1.64) 08/21/21 04:00 Nasal Adenovirus (PCR) NOT DETECTED 08/19/21 10:15 Nasal B. parapertussis DNA (PCR) NOT DETECTED 08/19/21 10:15 Nasal Coronavir 229E PCR NOT DETECTED 08/19/21 10:15 Nasal Coronavir HKU1 PCR NOT DETECTED 08/19/21 10:15 Nasal Coronavir NL63 PCR NOT DETECTED 08/19/21 10:15 Nasal Coronavir OC43 PCR NOT DETECTED 08/19/21 10:15 Nasal Enterovir/Rhinovir PCR DETECTED A 08/19/21 10:15 Nasal Influenza B PCR NOT DETECTED 08/19/21 10:15 Nasal Influenza A PCR NOT DETECTED 08/19/21 10:15 Nasal Parainfluen 1 PCR NOT DETECTED 08/19/21 10:15 Nasal Parainfluen 2 PCR NOT DETECTED 08/19/21 10:15 Nasal Parainfluen 3 PCR NOT DETECTED 08/19/21 10:15 Nasal Parainfluen 4 PCR NOT DETECTED 08/19/21 10:15 Nasal RSV (PCR) NOT DETECTED 08/19/21 10:15 Nasal Screen MRSA (PCR) NEGATIVE (NEGATIVE) 08/19/21 13:30 Nasal B.pertussis DNA PCR NOT DETECTED 08/19/21 10:15 Nasal C.pneumoniae (PCR) NOT DETECTED 08/19/21 10:15 Richy Human Metapneumo PCR NOT DETECTED 08/19/21 10:15 Nasal M.pneumoniae (PCR) NOT DETECTED 08/19/21 10:15 Nasal SARS-CoV-2 (PCR) DETECTED A 08/19/21 10:15 Ref Lab Test Result Cancelled 08/19/21 10:05 - Procedures Procedures: Procedures ASSISTANCE WITH RESPIRATORY VENTILATION, <24 HRS, CPAP (12/05/15) CATARAC PHACOEMULS/ASPIR (03/29/14) ENDOSC POLYPECTOMY OF LG INTEST (05/12/13) ESOPHAGOGASTRODUODENOSCOPY [EGD] W/CLOSED BIOPSY (05/12/13) INSERT LENS AT CATAR EXT (03/29/14) INSERTION OF INFUSION DEV INTO L FEMOR VEIN, PERC APPROACH (04/22/19) TRANSFUSE NONAUT FROZEN PLASMA IN PERIPH VEIN, PERC (04/22/19) TRANSFUSE NONAUT RED BLOOD CELLS IN CENTRAL VEIN, PERC (04/22/19) ABX Reporting Has patient been on IV antibiotics over the past 48 hours?: No Current Medications - Current Medications Current Medications: Active Medications Acetaminophen (Acetaminophen 325 Mg Tablet) 650 mg PO Q4HR PRN PRN Reason: Pain or Fever > 38C (100.4F) Last Admin: 09/10/21 14:37 Dose: 650 mg Albuterol (Albuterol Neb 2.5 Mg/3 Ml) 2.5 mg INH Q4HR PRN PRN Reason: Wheezing Last Admin: 09/10/21 07:19 Dose: 2.5 mg Aspirin (Aspirin Ec 325 Mg Tablet) 325 mg PO DAILY [facility] Last Admin: 09/10/21 09:55 Dose: 325 mg Atorvastatin Calcium (Atorvastatin 40 Mg Tablet) 40 mg PO QPM [facility] Last Admin: 09/09/21 21:02 Dose: 40 mg Budesonide (Budesonide 0.5 Mg/2 Ml Neb) 0.5 mg INH RTBID [facility] Last Admin: 09/10/21 07:18 Dose: 0.5 mg Chlorhexidine Gluconate (Chlorhexidine Gluconate 15 Ml Udc) 15 ml PO BID PRN PRN Reason: ORAL CARE Last Admin: 09/05/21 10:38 Dose: 15 ml Cholecalciferol (Cholecalciferol 25 Mcg Tablet) 50 mcg PO DAILY [facility] Last Admin: 09/10/21 09:56 Dose: 50 mcg Diltiazem HCl (Diltiazem Cd 180 Mg Capsule) 180 mg PO DAILY [facility] Last Admin: 09/10/21 09:56 Dose: 180 mg Docusate Sodium (Docusate Sodium 250 Mg Capsule) 250 - 500 mg PO DAILY [facility] Last Admin: 09/10/21 09:55 Dose: 250 mg Enoxaparin Sodium (Enoxaparin 40 Mg/0.4 Ml Syringe) 40 mg SUBQ DAILY [facility] Last Admin: 09/10/21 09:53 Dose: 40 mg Ferrous Gluconate (Ferrous Gluconate 324 Mg Tablet) 324 mg PO DAILYWM [facility] Last Admin: 09/10/21 09:55 Dose: 324 mg Gabapentin (Gabapentin 100 Mg Capsule) 100 mg PO QPM [facility] Last Admin: 09/09/21 21:02 Dose: 100 mg Hydromorphone HCl (Hydromorphone 2 Mg Tablet) 1 mg PO Q6HR PRN PRN Reason: PAIN Last Admin: 09/10/21 14:36 Dose: 1 mg Dextrose (D5w) 1,000 mls @ 0 mls/hr IV .Q0M [facility] Last Infusion: 09/09/21 16:17 Dose: Infused Insulin Aspart (Insulin Aspart 300 Unit/3 Ml Pen) 2 - 10 unit SUBQ 0800,1200,1700,2100 [facility]; Protocol Last Admin: 09/10/21 11:26 Dose: Not Given Insulin Glargine (Insulin Glargine 300 Unit/3 Ml Pen) 27 unit SUBQ DAILY [facility] Lidocaine (Lidocaine Patch 5%) 1 patch TOP DAILY PRN PRN Reason: PAIN Last Admin: 09/07/21 16:38 Dose: 1 patch Mineral Oil (Min Oil/Dimethicon/Coconut Oil 92 Gm Tube) 1 applic TOP PRN PRN PRN Reason: Skin Care Last Admin: 09/04/21 11:58 Dose: 1 applic Multi-Ingredient Ointment (Zinc Oxide 20% Oint 30 Gm Tube) 1 applic TOP PRN PRN PRN Reason: Skin Care Last Admin: 09/09/21 17:39 Dose: 1 applic Multivitamins/Minerals (Multivitamin W/Minerals Tablet) 1 tab PO DAILYWM [facility] Last Admin: 09/10/21 09:55 Dose: 1 tab Ondansetron HCl (Ondansetron Odt 4 Mg Tablet) 4 mg TL Q6HR PRN PRN Reason: Nausea / Vomiting Pantoprazole Sodium (Pantoprazole 40 Mg Tablet) 40 mg PO QDAC [facility] Last Admin: 09/10/21 06:06 Dose: 40 mg Polyethylene Glycol (Polyethylene Glycol 3350 17 Gm Packet) 17 gm PO DAILY [facility] Last Admin: 09/10/21 07:51 Dose: Not Given Prednisone (Prednisone 10 Mg Tablet) 15 mg PO DAILYWM [facility] Stop: 09/13/21 09:00 Last Admin: 09/10/21 09:55 Dose: 15 mg Senna (Senna 8.6 Mg Tablet) 8.6 - 17.2 mg PO DAILY [facility] Last Admin: 09/10/21 09:54 Dose: 8.6 mg Sodium Chloride (Sodium Chloride Flush 0.9% 10 Ml Syringe) 10 ml IVP 0100,0900,1700 [facility] Last Admin: 09/10/21 09:56 Dose: 10 ml Sodium Chloride (Sodium Chloride Flush 0.9% 10 Ml Syringe) 20 ml IVP PRN PRN PRN Reason: After Blood Draw Last Admin: 09/04/21 11:57 Dose: 30 ml Trazodone HCl (Trazodone 50 Mg Tablet) 50 mg PO QPM DINESH Last Admin: 09/09/21 21:02 Dose: 50 mg Omeprazole 40 mg PO DAILY 03/06/13 Aspirin [Aspir-Shannen] 325 mg PO DAILY 01/17/14 Atorvastatin Calcium 40 mg PO QPM 04/22/19 Diltiazem HCl [Diltiazem ER] 180 mg PO DAILY 04/22/19 Gabapentin [Neurontin] 100 mg PO QPM 04/22/19 Ipratropium/Albuterol [Duoneb] 3 ml INH Q6H 04/22/19 Furosemide 80 mg PO BID 04/24/19 Fluticasone/Salmeterol [Advair 500-50 Diskus] 1 each INH BID 05/31/19 Insulin Glargine [Lantus Solostar] 0 - 58 unit IM DAILY 10/09/20 Ferrous Gluconate 324 mg PO .[id number] 08/19/21 Losartan [Cozaar] 50 mg PO DAILY 08/19/21 Potassium Chloride [K-Dur] 20 meq PO BID 08/19/21 metFORMIN [Glucophage] 1,000 mg PO DAILY 08/19/21
[2021-09-10] MEDS: GABAPENTIN 100 MG CAPSULE PO SCH (20:42)
[2021-09-10] MEDS: traZODone 50 MG TABLET PO SCH (20:42)
[2021-09-10] MEDS: ATORVASTATIN 40 MG TABLET PO SCH (20:42)
[2021-09-11] MEDS: SODIUM CHLORIDE FLUSH 0.9% 10 ML SYRINGE IVP SCH ×3 (01:02→17:15)
[2021-09-11 06:01] LABS: BASOPHILS % (AUTO) 0.3 %; EOSINOPHILS # (AUTO) 0.1 10^3/uL (0.0-0.7); EOSINOPHILS % (AUTO) 1.5 %; HCT - HEMATOCRIT 30.9 % (42.0-52.0); LYMPHOCYTES # (AUTO) 1.8 10^3/uL (1.5-3.5); LYMPHOCYTES % (AUTO) 30.2 %; MEAN CORPUSCULAR HEMOGLOBIN 27.7 pg (27.0-31.0); MEAN CORPUSCULAR HGB CONC 29.1 g/dL (32.0-36.0); MEAN CORPUSCULAR VOLUME 95.1 fL (80.0-94.0); MEAN PLATELET VOLUME 9.1 fL (7.4-11.4); MONOCYTES # (AUTO) 0.6 10^3/uL (0.0-1.0); MONOCYTES % (AUTO) 9.6 %; NEUTROPHILS # (AUTO) 3.4 10^3/uL (1.5-6.6); NEUTROPHILS % (AUTO) 57.9 %; PLT - PLATELET COUNT 179 10^3/uL (130-450); RED BLOOD COUNT 3.25 10^6/uL (4.70-6.10); RED CELL DISTRIBUTION WIDTH 18.3 % (12.0-15.0); WHITE BLOOD COUNT 5.8 x10^3/uL (4.8-10.8)
[2021-09-11] MEDS: PANTOPRAZOLE 40 MG TABLET PO SCH (06:13)
[2021-09-11] MEDS: HYDROmorphone 2 MG TABLET PO PRN (06:14)
[2021-09-11] MEDS: ALBUTEROL NEB 2.5 MG/3 ML INH PRN ×2 (07:32→20:28)
[2021-09-11] MEDS: INSULIN ASPART 300 UNIT/3 ML PEN SUBQ SCH ×4 (08:00→20:25)
[2021-09-11] MEDS: polyethylene glycoL 3350 17 GM PACKET PO SCH (08:08)
[2021-09-11] MEDS: ENOXAPARIN 40 MG/0.4 ML SYRINGE SUBQ SCH (08:59)
[2021-09-11] MEDS: INSULIN GLARGINE 300 UNIT/3 ML PEN SUBQ SCH (08:59)
[2021-09-11] MEDS: FERROUS GLUCONATE 324 MG TABLET PO SCH (09:00)
[2021-09-11] MEDS: diltiaZEM CD 180 MG CAPSULE PO SCH (09:00)
[2021-09-11] MEDS ORDERED: INSULIN GLARGINE 300 UNIT/3 ML PEN SUBQ SCH (09:00)
[2021-09-11] MEDS: MULTIVITAMIN W/MINERALS TABLET PO SCH (09:00)
[2021-09-11] MEDS: ASPIRIN EC 325 MG TABLET PO SCH (09:00)
[2021-09-11] MEDS: SENNA 8.6 MG TABLET PO SCH (09:00)
[2021-09-11] MEDS: DOCUSATE SODIUM 250 MG CAPSULE PO SCH (09:00)
[2021-09-11] MEDS: CHOLECALCIFEROL 25 MCG TABLET PO SCH (09:01)
[2021-09-11] MEDS: predniSONE 10 MG TABLET PO SCH (09:01)
--- NOTE | 2021-09-11 14:04 | PROVIDER PROGRESS NOTE ---
Assessment/Plan - Problem List (1) Chronic respiratory failure with hypoxia Assessment/Plan: 09/11 pt report he feel great, has no complaints. he tolerated new non-invasive ventilator well. he has stable 97% O2 sat on 3 liter of O2 now. Consult with social work for disposition planning, planning patient to be discharged to SNF 09/10 stable. pt had a new noninvasive ventilator BiPAP on last night, he edna erate very well for the new machine, he had a good sleep on last night. continue consult with social media intern to plan d/c to SNF 09/09 acute phrase is resolved. pt has no acute respiratory distress, he had 96% on 3 lpm of O2. it is likely caused by combination of her obesity respiratory syndrome, severe COPD, Covid 19 infection, OMERO and physical deconditioning. pt is pending for machine of non-invasive ventilation for his d/c plan. (3) Pneumonia due to COVID-19 virus resolved. pt has no acute respiratory distress. He has now completed Remdesivir, Decadron and a course of IV antibiotics. (4) Severe COPD pt has hx of severe COPD and heavy smoker in the past. He was not on home O2 before this admission. He has been on Prednisone 20 mg daily orally once he has finished a 10 day course of Decadron. We will plan to taper the Prednisone very slowly, over many weeks. Today is day #1 of prednisone 15 mg for a week, and should be tapered by 5 mg every week. We started him on inhaled Budesonide and Singulair and continue the inhaled albuterol nebulizer. There is no change today. (5) Hypernatremia resolved resolved (6) Skin tear on buttocks pt has scattered open wounds within the gluteal cleft with blanching, pink non- granulating tissue. 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 (9) Sleep apnea on CPAP pt has hx of sleep apnea, his CPAP was recalled but did not be replaced by the company. plan: hopefully pt would have noninvasive ventilator on today and we will then put that on him by RT (10) Iron deficiency anemia Impression: Hemoglobin is stable. We have resumed home oral iron. (11) Gram-positive bacteremia Impression: Resolved. This is felt to be contaminant. Repeat cultures have been negative to date and the other set was negative. Antibiotics have been discontinued. (12) Hypotension Impression: Resolved, Levophed was turned off (13) Accelerated junctional rhythm Resolved. Possibly due to COVID heart We will continue to monitor his rhythm on telemetry. (14) Hyperkalemia Impression: Resolved (15)physical deconditioning pt present significant physical deconditioning, but pt also is full code status, continue PT/OT, continue support for pt (16)weakness continue PT/OT. consulted with social media intern for placement for SNF. - Current Meds Current Meds: Current Medications Generic Name Dose Route Start Last Admin Trade Name Freq PRN Reason Stop Dose Admin Acetaminophen 650 mg 09/04/21 09:45 09/10/21 21:52 Acetaminophen 325 Mg Tablet PO 650 mg Q4HR PRN Administration Pain or Fever > 38C (100.4F) Albuterol 2.5 mg 08/19/21 11:45 09/11/21 07:32 Albuterol Neb 2.5 Mg/3 Ml INH 2.5 mg Q4HR PRN Administration Wheezing Aspirin 325 mg 08/29/21 09:00 09/11/21 09:00 Aspirin Ec 325 Mg Tablet PO 325 mg DAILY DINESH Administration Atorvastatin Calcium 40 mg 08/19/21 21:00 09/10/21 20:42 Atorvastatin 40 Mg Tablet PO 40 mg QPM DINESH Administration Budesonide 0.5 mg 08/28/21 19:00 09/10/21 17:47 Budesonide 0.5 Mg/2 Ml Neb INH 0.5 mg RTBID DINESH Administration Chlorhexidine Gluconate 15 ml 08/31/21 09:34 09/05/21 10:38 Chlorhexidine Gluconate 15 Ml Udc PO 15 ml BID PRN Administration ORAL CARE Cholecalciferol 50 mcg 08/21/21 09:00 09/11/21 09:01 Cholecalciferol 25 Mcg Tablet PO 50 mcg DAILY DINESH Administration Diltiazem HCl 180 mg 09/03/21 11:00 09/11/21 09:00 Diltiazem Cd 180 Mg Capsule PO 180 mg DAILY DINESH Administration Docusate Sodium 250 - 500 mg 08/26/21 09:00 09/11/21 09:00 Docusate Sodium 250 Mg Capsule PO 250 mg DAILY DINESH Administration Enoxaparin Sodium 40 mg 08/27/21 09:00 09/11/21 08:59 Enoxaparin 40 Mg/0.4 Ml Syringe SUBQ 40 mg DAILY DINESH Administration Ferrous Gluconate 324 mg 09/02/21 08:00 09/11/21 09:00 Ferrous Gluconate 324 Mg Tablet PO 324 mg DAILYWM DINESH Administration Gabapentin 100 mg 08/31/21 21:00 09/10/21 20:42 Gabapentin 100 Mg Capsule PO 100 mg QPM DINESH Administration Hydromorphone HCl 1 mg 09/06/21 09:52 09/11/21 06:14 Hydromorphone 2 Mg Tablet PO 1 mg Q6HR PRN Administration PAIN Dextrose 1,000 mls @ 0 mls/hr 09/05/21 02:00 09/09/21 16:17 D5w IV Infused .Q0M DINESH Infusion TKO Insulin Aspart 2 - 10 unit 09/08/21 12:00 09/11/21 12:15 Insulin Aspart 300 Unit/3 Ml Pen SUBQ 4 unit 0800,1200,1700,2100 [facility] Administration Protocol Insulin Glargine 25 unit 09/11/21 09:00 09/11/21 08:59 Insulin Glargine 300 Unit/3 Ml Pen SUBQ 25 unit DAILY DINESH Administration Lidocaine 1 patch 08/29/21 14:54 09/07/21 16:38 Lidocaine Patch 5% TOP 1 patch DAILY PRN Administration PAIN Mineral Oil 1 applic 08/30/21 11:01 09/04/21 11:58 Min Oil/Dimethicon/Coconut Oil 92 Gm Tube TOP 1 applic PRN PRN Administration Skin Care Multi-Ingredient Ointment 1 applic 08/22/21 21:41 09/09/21 17:39 Zinc Oxide 20% Oint 30 Gm Tube TOP 1 applic PRN PRN Administration Skin Care Multivitamins/Minerals 1 tab 09/05/21 09:00 09/11/21 09:00 Multivitamin W/Minerals Tablet PO 1 tab DAILYWM DINESH Administration Pantoprazole Sodium 40 mg 08/31/21 07:00 09/11/21 06:13 Pantoprazole 40 Mg Tablet PO 40 mg QDAC DINESH Administration Polyethylene Glycol 17 gm 08/22/21 09:00 09/11/21 08:08 Polyethylene Glycol 3350 17 Gm Packet PO Not Given DAILY DINESH Prednisone 15 mg 09/07/21 08:00 09/11/21 09:01 Prednisone 10 Mg Tablet PO 09/13/21 09:00 15 mg DAILYWM DINESH Administration Senna 8.6 - 17.2 mg 08/26/21 09:00 09/11/21 09:00 Senna 8.6 Mg Tablet PO 8.6 mg DAILY DINESH Administration Sodium Chloride 10 ml 08/19/21 17:00 09/11/21 09:02 Sodium Chloride Flush 0.9% 10 Ml Syringe IVP 10 ml 0100,0900,1700 DINESH Administration Sodium Chloride 20 ml 08/22/21 04:43 09/04/21 11:57 Sodium Chloride Flush 0.9% 10 Ml Syringe IVP 30 ml PRN PRN Administration After Blood Draw Trazodone HCl 50 mg 08/31/21 21:00 09/10/21 20:42 Trazodone 50 Mg Tablet PO 50 mg QPM DINESH Administration - Lab Result Fish Bone Diagrams: 09/11/21 05:44 09/10/21 05:10 - Additional Planning My Orders: My Active Orders 09/11/21 09:00 Insulin Glargine [Lantus Solostar] 25 unit SUBQ DAILY 09/12/21 05:00 CBC - COMP BLD CT W/AUTO DIFF [HEME] DAILYLAB 09/13/21 05:00 CBC - COMP BLD CT W/AUTO DIFF [HEME] DAILYLAB 09/14/21 05:00 CBC - COMP BLD CT W/AUTO DIFF [HEME] DAILYLAB Subjective - Subjective Patient Reports: Feeling Better, Resting Comfortably Objective Vital Signs: Vital Signs - 24 hr 09/10/21 09/10/21 09/11/21 17:27 17:49 00:00 Temperature 36.5 C 36.8 C Heart Rate 105 H Heart Rate [ 98 73 Radial] Respiratory 18 23 20 Rate Blood Pressure 133/64 H 139/64 H [Right Radial artery] O2 Saturation 97 97 09/11/21 07:33 Temperature Heart Rate 90 Heart Rate [ Radial] Respiratory 20 Rate Blood Pressure [Right Radial artery] O2 Saturation Oxygen O2 Source BIPAP I&O (Last 24 Hrs): Intake and Output Totals x24h 09/09/21 09/10/21 09/11/21 23:59 23:59 23:59 Intake Total 2570 1550 550 Output Total 1150 1525 500 Balance 1420 25 50 General: Alert, Oriented x3, Cooperative, No acute distress HEENT: Atraumatic Neck: Supple Lymphatic: no adenopathy Neuro: Alert, Non Focal, Oriented Times 3 Cardiovascular: Regular rate, Normal S1, Normal S2 Respiratory: Chest non-tender, No respiratory distress Abdomen: Normal bowel sounds, Soft Extremities: Normal pulses - Results Results: Laboratory Results WBC 5.8 x10^3/uL (4.8-10.8) 09/11/21 05:44 RBC 3.25 10^6/uL (4.70-6.10) L 09/11/21 05:44 Hgb 9.0 g/dL (14.0-18.0) L 09/11/21 05:44 Hct 30.9 % (42.0-52.0) L 09/11/21 05:44 MCV 95.1 fL (80.0-94.0) H 09/11/21 05:44 MCH 27.7 pg (27.0-31.0) 09/11/21 05:44 MCHC 29.1 g/dL (32.0-36.0) L 09/11/21 05:44 RDW 18.3 % (12.0-15.0) H 09/11/21 05:44 Plt Count 179 10^3/uL (130-450) 09/11/21 05:44 MPV 9.1 fL (7.4-11.4) 09/11/21 05:44 Neut # (Auto) 3.4 10^3/uL (1.5-6.6) 09/11/21 05:44 Lymph # (Auto) 1.8 10^3/uL (1.5-3.5) 09/11/21 05:44 Evans # (Auto) 0.6 10^3/uL (0.0-1.0) 09/11/21 05:44 Eos # (Auto) 0.1 10^3/uL (0.0-0.7) 09/11/21 05:44 Baso # (Auto) 0.0 10^3/uL (0.0-0.1) 09/11/21 05:44 Absolute Nucleated RBC 0.00 x10^3/uL 09/11/21 05:44 Total Counted 100 08/29/21 05:45 Band Neuts % (Manual) Not Reportable 08/31/21 05:35 Abnorm Lymph % (Manual) Not Reportable 08/31/21 05:35 Metamyelocytes % 1 % (-0) H 08/27/21 04:45 Myelocytes % 1 % (-0) H 08/27/21 04:45 Nucleated RBC % 0.0 /100WBC 09/11/21 05:44 Neutrophils # (Manual) Not Reportable 08/31/21 05:35 Lymphocytes # (Manual) Not Reportable 08/31/21 05:35 Monocytes # (Manual) Not Reportable 08/31/21 05:35 Eosinophils # (Manual) Not Reportable 08/31/21 05:35 Basophils # (Manual) Not Reportable 08/31/21 05:35 Nucleated RBCs 1 % 08/27/21 04:45 Differential Comment MANUAL=AUTO DIFF 08/31/21 05:35 Manual Slide Review Indicated 09/10/21 05:10 WBC Morphology NORMAL APPEARANCE (NORMAL) 09/10/21 05:10 Platelet Estimate NORMAL (130-450,000) (NORMAL) 09/10/21 05:10 Platelet Morphology NORMAL APPEARANCE (NORMAL) 09/10/21 05:10 RBC Morph Micro Appear 1+ ANISOCYTOSIS (NORMAL) 1+ HYPOCHROMASIA (NORMAL) 1+ POLYCHROMASIA (NORMAL) 09/10/21 05:10 RBC Morph Micro Appear 1+ ANISOCYTOSIS (NORMAL) 1+ HYPOCHROMASIA (NORMAL) 1+ POLYCHROMASIA (NORMAL) 09/10/21 05:10 RBC Morph Micro Appear 1+ ANISOCYTOSIS (NORMAL) 1+ HYPOCHROMASIA (NORMAL) 1+ POLYCHROMASIA (NORMAL) 09/10/21 05:10 PT 15.3 secs (9.9-12.6) H 08/19/21 13:44 INR 1.4 (0.8-1.2) H 08/19/21 13:44 D-Dimer 527.1 ng/mL (200.0-255.0) H 08/22/21 04:45 Bld Gas Analysis Time 0523 08/29/21 05:19 Sample Site RIGHT RADIAL 08/29/21 05:19 ABG pH 7.39 (7.35-7.45) 08/29/21 05:19 ABG pCO2 52 mmHg (34-45) H 08/29/21 05:19 ABG pO2 77 mmHg (80-100) L 08/29/21 05:19 ABG HCO3 30.5 mmol/L (22.0-26.0) H 08/29/21 05:19 ABG Total CO2 32.1 MMOL/L (21.0-29.0) H 08/29/21 05:19 ABG O2 Saturation 94 % (94-98) 08/29/21 05:19 ABG Base Excess 4.7 mmol/L (-2.0-3.0) H 08/29/21 05:19 Endy Test POSITIVE 08/29/21 05:19 VBG pH 7.399 (7.31-7.41) 09/05/21 04:51 Ionized Calcium 1.05 mmol/L (1.15-1.33) L 09/05/21 04:51 Respiration Rate 10 b/min 08/29/21 05:19 O2 Delivery Device BiPAP 08/29/21 05:19 Vent Mode ASSIST/CONTROL 08/25/21 13:17 FiO2 50.00 08/29/21 05:19 Tidal Volume 500 mL 08/25/21 13:17 PEEP 7 cmH2O 08/25/21 13:17 EPAP 8 cmH2O 08/29/21 05:19 IPAP 16 cmH2O 08/29/21 05:19 Sodium 141 mmol/L (135-145) 09/10/21 05:10 Potassium 3.5 mmol/L (3.5-5.0) 09/10/21 05:10 Chloride 105 mmol/L (101-111) 09/10/21 05:10 Carbon Dioxide 28 mmol/L (21-32) 09/10/21 05:10 Anion Gap 8.0 (6-13) 09/10/21 05:10 BUN 12 mg/dL (6-20) 09/10/21 05:10 Creatinine 1.1 mg/dL (0.6-1.2) 09/10/21 05:10 Estimated GFR (MDRD) 65 (>89) L 09/10/21 05:10 Glucose 97 mg/dL (70-100) 09/10/21 05:10 POC Whole Bld Glucose 195 mg/dL (70 - 100) H 09/11/21 12:04 Estimat Average Glucose 146 mg/dL (70-100) H 09/09/21 05:20 Hemoglobin A1c % 6.7 % (4.27-6.07) H 09/09/21 05:20 Lactic Acid 1.3 mmol/L (0.5-2.2) 08/19/21 10:05 Calcium 8.1 mg/dL (8.5-10.3) L 09/10/21 05:10 Ionized Calcium YES 08/26/21 04:40 Phosphorus 4.2 mg/dL (2.5-4.6) 09/05/21 04:51 Magnesium 2.3 mg/dL (1.7-2.8) 09/05/21 04:51 Total Bilirubin 0.6 mg/dL (0.2-1.0) 08/27/21 04:45 Direct Bilirubin 0.1 mg/dL (0.1-0.5) 08/24/21 04:20 AST 29 IU/L (10-42) 08/27/21 04:45 ALT 24 IU/L (10-60) 08/27/21 04:45 Alkaline Phosphatase 61 IU/L (42-121) 08/27/21 04:45 Troponin I High Sens 11.4 ng/L (2.3-19.7) 08/19/21 10:05 C-Reactive Protein 6.6 mg/dL (0-1.0) H 08/21/21 04:53 B-Natriuretic Peptide 54 pg/mL (5-100) 08/19/21 10:05 Total Protein 6.4 g/dL (6.7-8.2) L 08/27/21 04:45 Albumin 2.6 g/dL (3.2-5.5) L 08/30/21 04:40 Globulin 3.9 g/dL (2.1-4.2) 08/27/21 04:45 Albumin/Globulin Ratio 0.6 (1.0-2.2) L 08/27/21 04:45 Prealbumin 26 mg/dL (18-45) 08/27/21 04:45 25-OH Vitamin D Total 10 ng/mL (30-100) L 08/20/21 13:55 TSH 0.13 uIU/mL (0.34-5.60) L 08/21/21 04:00 Free T4 1.27 ng/dL (0.58-1.64) 08/21/21 04:00 Nasal Adenovirus (PCR) NOT DETECTED 08/19/21 10:15 Nasal B. parapertussis DNA (PCR) NOT DETECTED 08/19/21 10:15 Nasal Coronavir 229E PCR NOT DETECTED 08/19/21 10:15 Nasal Coronavir HKU1 PCR NOT DETECTED 08/19/21 10:15 Nasal Coronavir NL63 PCR NOT DETECTED 08/19/21 10:15 Nasal Coronavir OC43 PCR NOT DETECTED 08/19/21 10:15 Nasal Enterovir/Rhinovir PCR DETECTED A 08/19/21 10:15 Nasal Influenza B PCR NOT DETECTED 08/19/21 10:15 Nasal Influenza A PCR NOT DETECTED 08/19/21 10:15 Nasal Parainfluen 1 PCR NOT DETECTED 08/19/21 10:15 Nasal Parainfluen 2 PCR NOT DETECTED 08/19/21 10:15 Nasal Parainfluen 3 PCR NOT DETECTED 08/19/21 10:15 Nasal Parainfluen 4 PCR NOT DETECTED 08/19/21 10:15 Nasal RSV (PCR) NOT DETECTED 08/19/21 10:15 Nasal Screen MRSA (PCR) NEGATIVE (NEGATIVE) 08/19/21 13:30 Nasal B.pertussis DNA PCR NOT DETECTED 08/19/21 10:15 Nasal C.pneumoniae (PCR) NOT DETECTED 08/19/21 10:15 Richy Human Metapneumo PCR NOT DETECTED 08/19/21 10:15 Nasal M.pneumoniae (PCR) NOT DETECTED 08/19/21 10:15 Nasal SARS-CoV-2 (PCR) DETECTED A 08/19/21 10:15 Ref Lab Test Result Cancelled 08/19/21 10:05 - Procedures Procedures: Procedures ASSISTANCE WITH RESPIRATORY VENTILATION, <24 HRS, CPAP (12/05/15) CATARAC PHACOEMULS/ASPIR (03/29/14) ENDOSC POLYPECTOMY OF LG INTEST (05/12/13) ESOPHAGOGASTRODUODENOSCOPY [EGD] W/CLOSED BIOPSY (05/12/13) INSERT LENS AT CATAR EXT (03/29/14) INSERTION OF INFUSION DEV INTO L FEMOR VEIN, PERC APPROACH (04/22/19) TRANSFUSE NONAUT FROZEN PLASMA IN PERIPH VEIN, PERC (04/22/19) TRANSFUSE NONAUT RED BLOOD CELLS IN CENTRAL VEIN, PERC (04/22/19) ABX Reporting Has patient been on IV antibiotics over the past 48 hours?: No Current Medications - Current Medications Current Medications: Active Medications Acetaminophen (Acetaminophen 325 Mg Tablet) 650 mg PO Q4HR PRN PRN Reason: Pain or Fever > 38C (100.4F) Last Admin: 09/10/21 21:52 Dose: 650 mg Albuterol (Albuterol Neb 2.5 Mg/3 Ml) 2.5 mg INH Q4HR PRN PRN Reason: Wheezing Last Admin: 09/11/21 07:32 Dose: 2.5 mg Aspirin (Aspirin Ec 325 Mg Tablet) 325 mg PO DAILY [facility] Last Admin: 09/11/21 09:00 Dose: 325 mg Atorvastatin Calcium (Atorvastatin 40 Mg Tablet) 40 mg PO QPM [facility] Last Admin: 09/10/21 20:42 Dose: 40 mg Budesonide (Budesonide 0.5 Mg/2 Ml Neb) 0.5 mg INH RTBID [facility] Last Admin: 09/10/21 17:47 Dose: 0.5 mg Chlorhexidine Gluconate (Chlorhexidine Gluconate 15 Ml Udc) 15 ml PO BID PRN PRN Reason: ORAL CARE Last Admin: 09/05/21 10:38 Dose: 15 ml Cholecalciferol (Cholecalciferol 25 Mcg Tablet) 50 mcg PO DAILY [facility] Last Admin: 09/11/21 09:01 Dose: 50 mcg Diltiazem HCl (Diltiazem Cd 180 Mg Capsule) 180 mg PO DAILY [facility] Last Admin: 09/11/21 09:00 Dose: 180 mg Docusate Sodium (Docusate Sodium 250 Mg Capsule) 250 - 500 mg PO DAILY [facility] Last Admin: 09/11/21 09:00 Dose: 250 mg Enoxaparin Sodium (Enoxaparin 40 Mg/0.4 Ml Syringe) 40 mg SUBQ DAILY [facility] Last Admin: 09/11/21 08:59 Dose: 40 mg Ferrous Gluconate (Ferrous Gluconate 324 Mg Tablet) 324 mg PO DAILYWM [facility] Last Admin: 09/11/21 09:00 Dose: 324 mg Gabapentin (Gabapentin 100 Mg Capsule) 100 mg PO QPM [facility] Last Admin: 09/10/21 20:42 Dose: 100 mg Hydromorphone HCl (Hydromorphone 2 Mg Tablet) 1 mg PO Q6HR PRN PRN Reason: PAIN Last Admin: 09/11/21 06:14 Dose: 1 mg Dextrose (D5w) 1,000 mls @ 0 mls/hr IV .Q0M [facility] Last Infusion: 09/09/21 16:17 Dose: Infused Insulin Aspart (Insulin Aspart 300 Unit/3 Ml Pen) 2 - 10 unit SUBQ 0800,1200,1700,2100 [facility]; Protocol Last Admin: 09/11/21 12:15 Dose: 4 unit Insulin Glargine (Insulin Glargine 300 Unit/3 Ml Pen) 25 unit SUBQ DAILY [facility] Last Admin: 09/11/21 08:59 Dose: 25 unit Lidocaine (Lidocaine Patch 5%) 1 patch TOP DAILY PRN PRN Reason: PAIN Last Admin: 09/07/21 16:38 Dose: 1 patch Mineral Oil (Min Oil/Dimethicon/Coconut Oil 92 Gm Tube) 1 applic TOP PRN PRN PRN Reason: Skin Care Last Admin: 09/04/21 11:58 Dose: 1 applic Multi-Ingredient Ointment (Zinc Oxide 20% Oint 30 Gm Tube) 1 applic TOP PRN PRN PRN Reason: Skin Care Last Admin: 09/09/21 17:39 Dose: 1 applic Multivitamins/Minerals (Multivitamin W/Minerals Tablet) 1 tab PO DAILYWM [facility] Last Admin: 09/11/21 09:00 Dose: 1 tab Ondansetron HCl (Ondansetron Odt 4 Mg Tablet) 4 mg TL Q6HR PRN PRN Reason: Nausea / Vomiting Pantoprazole Sodium (Pantoprazole 40 Mg Tablet) 40 mg PO QDAC [facility] Last Admin: 09/11/21 06:13 Dose: 40 mg Polyethylene Glycol (Polyethylene Glycol 3350 17 Gm Packet) 17 gm PO DAILY [facility] Last Admin: 09/11/21 08:08 Dose: Not Given Prednisone (Prednisone 10 Mg Tablet) 15 mg PO DAILYWM [facility] Stop: 09/13/21 09:00 Last Admin: 09/11/21 09:01 Dose: 15 mg Senna (Senna 8.6 Mg Tablet) 8.6 - 17.2 mg PO DAILY [facility] Last Admin: 09/11/21 09:00 Dose: 8.6 mg Sodium Chloride (Sodium Chloride Flush 0.9% 10 Ml Syringe) 10 ml IVP 0100,0900,1700 [facility] Last Admin: 09/11/21 09:02 Dose: 10 ml Sodium Chloride (Sodium Chloride Flush 0.9% 10 Ml Syringe) 20 ml IVP PRN PRN PRN Reason: After Blood Draw Last Admin: 09/04/21 11:57 Dose: 30 ml Trazodone HCl (Trazodone 50 Mg Tablet) 50 mg PO QPM [facility] Last Admin: 09/10/21 20:42 Dose: 50 mg Omeprazole 40 mg PO DAILY 03/06/13 Aspirin [Aspir-Shannen] 325 mg PO DAILY 01/17/14 Atorvastatin Calcium 40 mg PO QPM 04/22/19 Diltiazem HCl [Diltiazem ER] 180 mg PO DAILY 04/22/19 Gabapentin [Neurontin] 100 mg PO QPM 04/22/19 Ipratropium/Albuterol [Duoneb] 3 ml INH Q6H 04/22/19 Furosemide 80 mg PO BID 04/24/19 Fluticasone/Salmeterol [Advair 500-50 Diskus] 1 each INH BID 05/31/19 Insulin Glargine [Lantus Solostar] 0 - 58 unit IM DAILY 10/09/20 Ferrous Gluconate 324 mg PO .[id number] 08/19/21 Losartan [Cozaar] 50 mg PO DAILY 08/19/21 Potassium Chloride [K-Dur] 20 meq PO BID 08/19/21 metFORMIN [Glucophage] 1,000 mg PO DAILY 08/19/21
[2021-09-11] MEDS: traZODone 50 MG TABLET PO SCH (20:24)
[2021-09-11] MEDS: GABAPENTIN 100 MG CAPSULE PO SCH (20:24)
[2021-09-11] MEDS: ATORVASTATIN 40 MG TABLET PO SCH (20:24)
[2021-09-11] MEDS: BUDESONIDE 0.5 MG/2 ML NEB INH SCH (20:28)
[2021-09-12] MEDS: SODIUM CHLORIDE FLUSH 0.9% 10 ML SYRINGE IVP SCH ×3 (01:14→17:42)
[2021-09-12 06:30] LABS: BASOPHILS % (AUTO) 0.4 %; EOSINOPHILS # (AUTO) 0.1 10^3/uL (0.0-0.7); EOSINOPHILS % (AUTO) 0.9 %; HCT - HEMATOCRIT 30.1 % (42.0-52.0); HGB - HEMOGLOBIN 8.7 g/dL (14.0-18.0); LYMPHOCYTES # (AUTO) 1.5 10^3/uL (1.5-3.5); MEAN CORPUSCULAR HEMOGLOBIN 27.5 pg (27.0-31.0); MEAN CORPUSCULAR HGB CONC 28.9 g/dL (32.0-36.0); MEAN CORPUSCULAR VOLUME 95.3 fL (80.0-94.0); MEAN PLATELET VOLUME 9.5 fL (7.4-11.4); MONOCYTES # (AUTO) 0.6 10^3/uL (0.0-1.0); NEUTROPHILS # (AUTO) 3.4 10^3/uL (1.5-6.6); NEUTROPHILS % (AUTO) 61.2 %; PLT - PLATELET COUNT 217 10^3/uL (130-450); RED BLOOD COUNT 3.16 10^6/uL (4.70-6.10); RED CELL DISTRIBUTION WIDTH 18.3 % (12.0-15.0); WHITE BLOOD COUNT 5.6 x10^3/uL (4.8-10.8)
[2021-09-12] MEDS: HYDROmorphone 2 MG TABLET PO PRN (06:37)
[2021-09-12] MEDS: PANTOPRAZOLE 40 MG TABLET PO SCH (06:37)
[2021-09-12] MEDS: ACETAMINOPHEN 325 MG TABLET PO PRN (06:37)
[2021-09-12] MEDS: BUDESONIDE 0.5 MG/2 ML NEB INH SCH ×2 (06:37→19:14)
[2021-09-12] MEDS: ALBUTEROL NEB 2.5 MG/3 ML INH PRN ×2 (06:37→19:14)
[2021-09-12] MEDS: INSULIN ASPART 300 UNIT/3 ML PEN SUBQ SCH ×4 (08:07→21:13)
[2021-09-12] MEDS: polyethylene glycoL 3350 17 GM PACKET PO SCH (09:13)
[2021-09-12] MEDS: MULTIVITAMIN W/MINERALS TABLET PO SCH (09:14)
[2021-09-12] MEDS: SENNA 8.6 MG TABLET PO SCH (09:14)
[2021-09-12] MEDS: DOCUSATE SODIUM 250 MG CAPSULE PO SCH (09:14)
[2021-09-12] MEDS: ENOXAPARIN 40 MG/0.4 ML SYRINGE SUBQ SCH (09:14)
[2021-09-12] MEDS: CHOLECALCIFEROL 25 MCG TABLET PO SCH (09:14)
[2021-09-12] MEDS: diltiaZEM CD 180 MG CAPSULE PO SCH (09:15)
[2021-09-12] MEDS: predniSONE 10 MG TABLET PO SCH (09:15)
[2021-09-12] MEDS: ASPIRIN EC 325 MG TABLET PO SCH (09:15)
[2021-09-12] MEDS: FERROUS GLUCONATE 324 MG TABLET PO SCH (09:15)
[2021-09-12] MEDS: INSULIN GLARGINE 300 UNIT/3 ML PEN SUBQ SCH (09:18)
[2021-09-12 09:35] LABS: CALCIUM 7.9 mg/dL (8.5-10.3); POTASSIUM 3.4 mmol/L (3.5-5.0)
[2021-09-12] MEDS ORDERED: POTASSIUM CHLORIDE 20 MEQ TABLET PO ONE (12:36)
--- NOTE | 2021-09-12 12:39 | PROVIDER PROGRESS NOTE ---
Assessment/Plan - Problem List (1) Chronic respiratory failure with hypoxia Assessment/Plan: 09/12 pt has 95% O2 sat on 3 liter of O2, stable, no acute respiratory distress. he feel great, happy to have [place] off. pt has progress with PT/OT and pt is ready for SNF. web content & social media manager is consult for Disposition planning 09/11 pt report he feel great, has no complaints. he tolerated new non-invasive ventilator well. he has stable 97% O2 sat on 3 liter of O2 now. Consult with social work for disposition planning, planning patient to be discharged to SNF 09/10 stable. pt had a new noninvasive ventilator BiPAP on last night, he tolerate very well for the new machine, he had a good sleep on last night. ulises mcduffie consult with web content & social media manager to plan d/c to SNF 09/09 acute phrase is resolved. pt has no acute respiratory distress, he had 96% on 3 lpm of O2. it is likely caused by combination of her obesity respiratory syndrome, severe COPD, Covid 19 infection, OMERO and physical deconditioning. pt is pending for machine of non-invasive ventilation for his d/c plan. (3) Pneumonia due to COVID-19 virus resolved. pt has no acute respiratory distress. He has now completed Remdesivir, Decadron and a course of IV antibiotics. (4) Severe COPD pt has hx of severe COPD and heavy smoker in the past. He was not on home O2 before this admission. He has been on Prednisone 20 mg daily orally once he has finished a 10 day course of Decadron. We will plan to taper the Prednisone very slowly, over many weeks. Today is day #1 of prednisone 15 mg for a week, and should be tapered by 5 mg every week. We started him on inhaled Budesonide and Singulair and continue the inhaled albuterol nebulizer. There is no change today. (5) Hypernatremia resolved resolved (6) Skin tear on buttocks pt has scattered open wounds within the gluteal cleft with blanching, pink non- granulating tissue. 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 (9) Sleep apnea on CPAP pt has hx of sleep apnea, his CPAP was recalled but did not be replaced by the company. plan: hopefully pt would have noninvasive ventilator on today and we will then put that on him by RT (10) Iron deficiency anemia Impression: Hemoglobin is stable. We have resumed home oral iron. (11) Gram-positive bacteremia Impression: Resolved. This is felt to be contaminant. Repeat cultures have been negative to date and the other set was negative. Antibiotics have been discontinued. (12) Hypotension Impression: Resolved, Levophed was turned off (13) Accelerated junctional rhythm Resolved. Possibly due to COVID heart We will continue to monitor his rhythm on telemetry. (14) Hyperkalemia Impression: Resolved (15)physical deconditioning pt present significant physical deconditioning, but pt also is full code status, continue PT/OT, continue support for pt (16)weakness continue PT/OT. consulted with web content & social media manager for placement for SNF. - Current Meds Current Meds: Current Medications Generic Name Dose Route Start Last Admin Trade Name Jagdish PRN Reason Stop Dose Admin Acetaminophen 650 mg 09/04/21 09:45 09/12/21 06:37 Acetaminophen 325 Mg Tablet PO 650 mg Q4HR PRN Administration Pain or Fever > 38C (100.4F) Albuterol 2.5 mg 08/19/21 11:45 09/12/21 06:37 Albuterol Neb 2.5 Mg/3 Ml INH 2.5 mg Q4HR PRN Administration Wheezing Aspirin 325 mg 08/29/21 09:00 09/12/21 09:15 Aspirin Ec 325 Mg Tablet PO 325 mg DAILY DINESH Administration Atorvastatin Calcium 40 mg 08/19/21 21:00 09/11/21 20:24 Atorvastatin 40 Mg Tablet PO 40 mg QPM DINESH Administration Budesonide 0.5 mg 08/28/21 19:00 09/12/21 06:37 Budesonide 0.5 Mg/2 Ml Neb INH 0.5 mg RTBID DINESH Administration Chlorhexidine Gluconate 15 ml 08/31/21 09:34 09/05/21 10:38 Chlorhexidine Gluconate 15 Ml Udc PO 15 ml BID PRN Administration ORAL CARE Cholecalciferol 50 mcg 08/21/21 09:00 09/12/21 09:14 Cholecalciferol 25 Mcg Tablet PO 50 mcg DAILY DINESH Administration Diltiazem HCl 180 mg 09/03/21 11:00 09/12/21 09:15 Diltiazem Cd 180 Mg Capsule PO 180 mg DAILY DINESH Administration Docusate Sodium 250 - 500 mg 08/26/21 09:00 09/12/21 09:14 Docusate Sodium 250 Mg Capsule PO 250 mg DAILY DINESH Administration Enoxaparin Sodium 40 mg 08/27/21 09:00 09/12/21 09:14 Enoxaparin 40 Mg/0.4 Ml Syringe SUBQ 40 mg DAILY DINESH Administration Ferrous Gluconate 324 mg 09/02/21 08:00 09/12/21 09:15 Ferrous Gluconate 324 Mg Tablet PO 324 mg DAILYWM DINESH Administration Gabapentin 100 mg 08/31/21 21:00 09/11/21 20:24 Gabapentin 100 Mg Capsule PO 100 mg QPM DINESH Administration Hydromorphone HCl 1 mg 09/06/21 09:52 09/12/21 06:37 Hydromorphone 2 Mg Tablet PO 1 mg Q6HR PRN Administration PAIN Dextrose 1,000 mls @ 0 mls/hr 09/05/21 02:00 09/09/21 16:17 D5w IV Infused .Q0M [facility] Infusion TKO Insulin Aspart 2 - 10 unit 09/08/21 12:00 09/12/21 12:11 Insulin Aspart 300 Unit/3 Ml Pen SUBQ Not Given 0800,1200,1700,2100 [facility] Protocol Insulin Glargine 25 unit 09/11/21 09:00 09/12/21 09:18 Insulin Glargine 300 Unit/3 Ml Pen SUBQ 25 unit DAILY DINESH Administration Lidocaine 1 patch 08/29/21 14:54 09/07/21 16:38 Lidocaine Patch 5% TOP 1 patch DAILY PRN Administration PAIN Mineral Oil 1 applic 08/30/21 11:01 09/04/21 11:58 Min Oil/Dimethicon/Coconut Oil 92 Gm Tube TOP 1 applic PRN PRN Administration Skin Care Multi-Ingredient Ointment 1 applic 08/22/21 21:41 09/09/21 17:39 Zinc Oxide 20% Oint 30 Gm Tube TOP 1 applic PRN PRN Administration Skin Care Multivitamins/Minerals 1 tab 09/05/21 09:00 09/12/21 09:14 Multivitamin W/Minerals Tablet PO 1 tab DAILYWM DINESH Administration Pantoprazole Sodium 40 mg 08/31/21 07:00 09/12/21 06:37 Pantoprazole 40 Mg Tablet PO 40 mg QDAC DINESH Administration Polyethylene Glycol 17 gm 08/22/21 09:00 09/12/21 09:13 Polyethylene Glycol 3350 17 Gm Packet PO 17 gm DAILY DINESH Administration Prednisone 15 mg 09/07/21 08:00 09/12/21 09:15 Prednisone 10 Mg Tablet PO 09/13/21 09:00 15 mg DAILYWM DINESH Administration Senna 8.6 - 17.2 mg 08/26/21 09:00 09/12/21 09:14 Senna 8.6 Mg Tablet PO 8.6 mg DAILY DINESH Administration Sodium Chloride 10 ml 08/19/21 17:00 09/12/21 09:16 Sodium Chloride Flush 0.9% 10 Ml Syringe IVP 10 ml 0100,0900,1700 DINESH Administration Sodium Chloride 20 ml 08/22/21 04:43 09/04/21 11:57 Sodium Chloride Flush 0.9% 10 Ml Syringe IVP 30 ml PRN PRN Administration After Blood Draw Trazodone HCl 50 mg 08/31/21 21:00 09/11/21 20:24 Trazodone 50 Mg Tablet PO 50 mg QPM DINESH Administration - Lab Result Fish Bone Diagrams: 09/12/21 05:00 09/12/21 09:11 - Additional Planning My Orders: My Active Orders 09/12/21 12:36 Potassium Chloride [K-Dur] 20 meq PO ONCE ONE 09/13/21 05:00 BMP - BASIC METABOLIC PANEL [CHEM] DAILYLAB CBC - COMP BLD CT W/AUTO DIFF [HEME] DAILYLAB 09/14/21 05:00 BMP - BASIC METABOLIC PANEL [CHEM] DAILYLAB CBC - COMP BLD CT W/AUTO DIFF [HEME] DAILYLAB 09/15/21 05:00 BMP - BASIC METABOLIC PANEL [CHEM] DAILYLAB 09/16/21 05:00 BMP - BASIC METABOLIC PANEL [CHEM] DAILYLAB 09/17/21 05:00 BMP - BASIC METABOLIC PANEL [CHEM] DAILYLAB 09/18/21 05:00 BMP - BASIC METABOLIC PANEL [CHEM] DAILYLAB Subjective - Subjective Patient Reports: Feeling Better, Resting Comfortably Objective Vital Signs: Vital Signs - 24 hr 09/11/21 09/11/21 09/12/21 14:00 19:07 01:00 Temperature 36.8 C 36.9 C 36.7 C Heart Rate [ 105 H Monitoring electrodes] Heart Rate [ 102 H 106 H Radial] Respiratory 22 22 20 Rate Blood Pressure 151/62 H 164/64 H 140/75 H [Right Radial artery] O2 Saturation 96 94 96 09/12/21 07:42 Temperature 36.8 C Heart Rate [ Monitoring electrodes] Heart Rate [ 106 H Radial] Respiratory 20 Rate Blood Pressure 164/80 H [Right Radial artery] O2 Saturation 95 Oxygen O2 Source Nasal cannula I&O (Last 24 Hrs): Intake and Output Totals x24h 09/10/21 09/11/21 09/12/21 23:59 23:59 23:59 Intake Total 1550 1800 1150 Output Total 1525 1300 305 Balance 25 500 845 General: Alert, Oriented x3, Cooperative, No acute distress HEENT: Atraumatic Neck: Supple Lymphatic: no adenopathy Neuro: Alert, Non Focal, Oriented Times 3 Cardiovascular: Regular rate, Normal S1, Normal S2 Respiratory: Chest non-tender, No respiratory distress Abdomen: Normal bowel sounds, Soft Extremities: Normal pulses - Results Results: Laboratory Results WBC 5.6 x10^3/uL (4.8-10.8) 09/12/21 05:00 RBC 3.16 10^6/uL (4.70-6.10) L 09/12/21 05:00 Hgb 8.7 g/dL (14.0-18.0) L 09/12/21 05:00 Hct 30.1 % (42.0-52.0) L 09/12/21 05:00 MCV 95.3 fL (80.0-94.0) H 09/12/21 05:00 MCH 27.5 pg (27.0-31.0) 09/12/21 05:00 MCHC 28.9 g/dL (32.0-36.0) L 09/12/21 05:00 RDW 18.3 % (12.0-15.0) H 09/12/21 05:00 Plt Count 217 10^3/uL (130-450) 09/12/21 05:00 MPV 9.5 fL (7.4-11.4) 09/12/21 05:00 Neut # (Auto) 3.4 10^3/uL (1.5-6.6) 09/12/21 05:00 Lymph # (Auto) 1.5 10^3/uL (1.5-3.5) 09/12/21 05:00 Williamson # (Auto) 0.6 10^3/uL (0.0-1.0) 09/12/21 05:00 Eos # (Auto) 0.1 10^3/uL (0.0-0.7) 09/12/21 05:00 Baso # (Auto) 0.0 10^3/uL (0.0-0.1) 09/12/21 05:00 Absolute Nucleated RBC 0.00 x10^3/uL 09/12/21 05:00 Total Counted 100 08/29/21 05:45 Band Neuts % (Manual) Not Reportable 08/31/21 05:35 Abnorm Lymph % (Manual) Not Reportable 08/31/21 05:35 Metamyelocytes % 1 % (-0) H 08/27/21 04:45 Myelocytes % 1 % (-0) H 08/27/21 04:45 Nucleated RBC % 0.0 /100WBC 09/12/21 05:00 Neutrophils # (Manual) Not Reportable 08/31/21 05:35 Lymphocytes # (Manual) Not Reportable 08/31/21 05:35 Monocytes # (Manual) Not Reportable 08/31/21 05:35 Eosinophils # (Manual) Not Reportable 08/31/21 05:35 Basophils # (Manual) Not Reportable 08/31/21 05:35 Nucleated RBCs 1 % 08/27/21 04:45 Differential Comment MANUAL=AUTO DIFF 08/31/21 05:35 Manual Slide Review Indicated 09/10/21 05:10 WBC Morphology NORMAL APPEARANCE (NORMAL) 09/10/21 05:10 Platelet Estimate NORMAL (130-450,000) (NORMAL) 09/10/21 05:10 Platelet Morphology NORMAL APPEARANCE (NORMAL) 09/10/21 05:10 RBC Morph Micro Appear 1+ ANISOCYTOSIS (NORMAL) 1+ HYPOCHROMASIA (NORMAL) 1+ POLYCHROMASIA (NORMAL) 09/10/21 05:10 RBC Morph Micro Appear 1+ ANISOCYTOSIS (NORMAL) 1+ HYPOCHROMASIA (NORMAL) 1+ POLYCHROMASIA (NORMAL) 09/10/21 05:10 RBC Morph Micro Appear 1+ ANISOCYTOSIS (NORMAL) 1+ HYPOCHROMASIA (NORMAL) 1+ POLYCHROMASIA (NORMAL) 09/10/21 05:10 PT 15.3 secs (9.9-12.6) H 08/19/21 13:44 INR 1.4 (0.8-1.2) H 08/19/21 13:44 D-Dimer 527.1 ng/mL (200.0-255.0) H 08/22/21 04:45 Bld Gas Analysis Time 52208/29/21 05:19 Sample Site RIGHT RADIAL 08/29/21 05:19 ABG pH 7.39 (7.35-7.45) 08/29/21 05:19 ABG pCO2 52 mmHg (34-45) H 08/29/21 05:19 ABG pO2 77 mmHg (80-100) L 08/29/21 05:19 ABG HCO3 30.5 mmol/L (22.0-26.0) H 08/29/21 05:19 ABG Total CO2 32.1 MMOL/L (21.0-29.0) H 08/29/21 05:19 ABG O2 Saturation 94 % (94-98) 08/29/21 05:19 ABG Base Excess 4.7 mmol/L (-2.0-3.0) H 08/29/21 05:19 Endy Test POSITIVE 08/29/21 05:19 VBG pH 7.399 (7.31-7.41) 09/05/21 04:51 Ionized Calcium 1.05 mmol/L (1.15-1.33) L 09/05/21 04:51 Respiration Rate 10 b/min 08/29/21 05:19 O2 Delivery Device BiPAP 08/29/21 05:19 Vent Mode ASSIST/CONTROL 08/25/21 13:17 FiO2 50.00 08/29/21 05:19 Tidal Volume 500 mL 08/25/21 13:17 PEEP 7 cmH2O 08/25/21 13:17 EPAP 8 cmH2O 08/29/21 05:19 IPAP 16 cmH2O 08/29/21 05:19 Sodium 138 mmol/L (135-145) 09/12/21 09:11 Potassium 3.4 mmol/L (3.5-5.0) L 09/12/21 09:11 Chloride 102 mmol/L (101-111) 09/12/21 09:11 Carbon Dioxide 27 mmol/L (21-32) 09/12/21 09:11 Anion Gap 9.0 (6-13) 09/12/21 09:11 BUN 11 mg/dL (6-20) 09/12/21 09:11 Creatinine 1.0 mg/dL (0.6-1.2) 09/12/21 09:11 Estimated GFR (MDRD) 73 (>89) L 09/12/21 09:11 Glucose 162 mg/dL (70-100) H 09/12/21 09:11 POC Whole Bld Glucose 118 mg/dL (70 - 100) H 09/12/21 11:42 Estimat Average Glucose 146 mg/dL (70-100) H 09/09/21 05:20 Hemoglobin A1c % 6.7 % (4.27-6.07) H 09/09/21 05:20 Lactic Acid 1.3 mmol/L (0.5-2.2) 08/19/21 10:05 Calcium 7.9 mg/dL (8.5-10.3) L 09/12/21 09:11 Ionized Calcium YES 08/26/21 04:40 Phosphorus 4.2 mg/dL (2.5-4.6) 09/05/21 04:51 Magnesium 2.3 mg/dL (1.7-2.8) 09/05/21 04:51 Total Bilirubin 0.6 mg/dL (0.2-1.0) 08/27/21 04:45 Direct Bilirubin 0.1 mg/dL (0.1-0.5) 08/24/21 04:20 AST 29 IU/L (10-42) 08/27/21 04:45 ALT 24 IU/L (10-60) 08/27/21 04:45 Alkaline Phosphatase 61 IU/L (42-121) 08/27/21 04:45 Troponin I High Sens 11.4 ng/L (2.3-19.7) 08/19/21 10:05 C-Reactive Protein 6.6 mg/dL (0-1.0) H 08/21/21 04:53 B-Natriuretic Peptide 54 pg/mL (5-100) 08/19/21 10:05 Total Protein 6.4 g/dL (6.7-8.2) L 08/27/21 04:45 Albumin 2.6 g/dL (3.2-5.5) L 08/30/21 04:40 Globulin 3.9 g/dL (2.1-4.2) 08/27/21 04:45 Albumin/Globulin Ratio 0.6 (1.0-2.2) L 08/27/21 04:45 Prealbumin 26 mg/dL (18-45) 08/27/21 04:45 25-OH Vitamin D Total 10 ng/mL (30-100) L 08/20/21 13:55 TSH 0.13 uIU/mL (0.34-5.60) L 08/21/21 04:00 Free T4 1.27 ng/dL (0.58-1.64) 08/21/21 04:00 Nasal Adenovirus (PCR) NOT DETECTED 08/19/21 10:15 Nasal B. parapertussis DNA (PCR) NOT DETECTED 08/19/21 10:15 Nasal Coronavir 229E PCR NOT DETECTED 08/19/21 10:15 Nasal Coronavir HKU1 PCR NOT DETECTED 08/19/21 10:15 Nasal Coronavir NL63 PCR NOT DETECTED 08/19/21 10:15 Nasal Coronavir OC43 PCR NOT DETECTED 08/19/21 10:15 Nasal Enterovir/Rhinovir PCR DETECTED A 08/19/21 10:15 Nasal Influenza B PCR NOT DETECTED 08/19/21 10:15 Nasal Influenza A PCR NOT DETECTED 08/19/21 10:15 Nasal Parainfluen 1 PCR NOT DETECTED 08/19/21 10:15 Nasal Parainfluen 2 PCR NOT DETECTED 08/19/21 10:15 Nasal Parainfluen 3 PCR NOT DETECTED 08/19/21 10:15 Nasal Parainfluen 4 PCR NOT DETECTED 08/19/21 10:15 Nasal RSV (PCR) NOT DETECTED 08/19/21 10:15 Nasal Screen MRSA (PCR) NEGATIVE (NEGATIVE) 08/19/21 13:30 Nasal B.pertussis DNA PCR NOT DETECTED 08/19/21 10:15 Nasal C.pneumoniae (PCR) NOT DETECTED 08/19/21 10:15 Richy Human Metapneumo PCR NOT DETECTED 08/19/21 10:15 Nasal M.pneumoniae (PCR) NOT DETECTED 08/19/21 10:15 Nasal SARS-CoV-2 (PCR) DETECTED A 08/19/21 10:15 Ref Lab Test Result Cancelled 08/19/21 10:05 - Procedures Procedures: Procedures ASSISTANCE WITH RESPIRATORY VENTILATION, <24 HRS, CPAP (12/05/15) CATARAC PHACOEMULS/ASPIR (03/29/14) ENDOSC POLYPECTOMY OF LG INTEST (05/12/13) ESOPHAGOGASTRODUODENOSCOPY [EGD] W/CLOSED BIOPSY (05/12/13) INSERT LENS AT CATAR EXT (03/29/14) INSERTION OF INFUSION DEV INTO L FEMOR VEIN, PERC APPROACH (04/22/19) TRANSFUSE NONAUT FROZEN PLASMA IN PERIPH VEIN, PERC (04/22/19) TRANSFUSE NONAUT RED BLOOD CELLS IN CENTRAL VEIN, PERC (04/22/19) ABX Reporting Has patient been on IV antibiotics over the past 48 hours?: No Current Medications - Current Medications Current Medications: Active Medications Acetaminophen (Acetaminophen 325 Mg Tablet) 650 mg PO Q4HR PRN PRN Reason: Pain or Fever > 38C (100.4F) Last Admin: 09/12/21 06:37 Dose: 650 mg Albuterol (Albuterol Neb 2.5 Mg/3 Ml) 2.5 mg INH Q4HR PRN PRN Reason: Wheezing Last Admin: 09/12/21 06:37 Dose: 2.5 mg Aspirin (Aspirin Ec 325 Mg Tablet) 325 mg PO DAILY [facility] Last Admin: 09/12/21 09:15 Dose: 325 mg Atorvastatin Calcium (Atorvastatin 40 Mg Tablet) 40 mg PO QPM [facility] Last Admin: 09/11/21 20:24 Dose: 40 mg Budesonide (Budesonide 0.5 Mg/2 Ml Neb) 0.5 mg INH RTBID [facility] Last Admin: 09/12/21 06:37 Dose: 0.5 mg Chlorhexidine Gluconate (Chlorhexidine Gluconate 15 Ml Udc) 15 ml PO BID PRN PRN Reason: ORAL CARE Last Admin: 09/05/21 10:38 Dose: 15 ml Cholecalciferol (Cholecalciferol 25 Mcg Tablet) 50 mcg PO DAILY [facility] Last Admin: 09/12/21 09:14 Dose: 50 mcg Diltiazem HCl (Diltiazem Cd 180 Mg Capsule) 180 mg PO DAILY [facility] Last Admin: 09/12/21 09:15 Dose: 180 mg Docusate Sodium (Docusate Sodium 250 Mg Capsule) 250 - 500 mg PO DAILY [facility] Last Admin: 09/12/21 09:14 Dose: 250 mg Enoxaparin Sodium (Enoxaparin 40 Mg/0.4 Ml Syringe) 40 mg SUBQ DAILY [facility] Last Admin: 09/12/21 09:14 Dose: 40 mg Ferrous Gluconate (Ferrous Gluconate 324 Mg Tablet) 324 mg PO DAILYWM [facility] Last Admin: 09/12/21 09:15 Dose: 324 mg Gabapentin (Gabapentin 100 Mg Capsule) 100 mg PO QPM [facility] Last Admin: 09/11/21 20:24 Dose: 100 mg Hydromorphone HCl (Hydromorphone 2 Mg Tablet) 1 mg PO Q6HR PRN PRN Reason: PAIN Last Admin: 09/12/21 06:37 Dose: 1 mg Dextrose (D5w) 1,000 mls @ 0 mls/hr IV .Q0M [facility] Last Infusion: 09/09/21 16:17 Dose: Infused Insulin Aspart (Insulin Aspart 300 Unit/3 Ml Pen) 2 - 10 unit SUBQ 0800,1200,1700,2100 [facility]; Protocol Last Admin: 09/12/21 12:11 Dose: Not Given Insulin Glargine (Insulin Glargine 300 Unit/3 Ml Pen) 25 unit SUBQ DAILY [facility] Last Admin: 09/12/21 09:18 Dose: 25 unit Lidocaine (Lidocaine Patch 5%) 1 patch TOP DAILY PRN PRN Reason: PAIN Last Admin: 09/07/21 16:38 Dose: 1 patch Mineral Oil (Min Oil/Dimethicon/Coconut Oil 92 Gm Tube) 1 applic TOP PRN PRN PRN Reason: Skin Care Last Admin: 09/04/21 11:58 Dose: 1 applic Multi-Ingredient Ointment (Zinc Oxide 20% Oint 30 Gm Tube) 1 applic TOP PRN PRN PRN Reason: Skin Care Last Admin: 09/09/21 17:39 Dose: 1 applic Multivitamins/Minerals (Multivitamin W/Minerals Tablet) 1 tab PO DAILYWM [facility] Last Admin: 09/12/21 09:14 Dose: 1 tab Ondansetron HCl (Ondansetron Odt 4 Mg Tablet) 4 mg TL Q6HR PRN PRN Reason: Nausea / Vomiting Pantoprazole Sodium (Pantoprazole 40 Mg Tablet) 40 mg PO QDAC [facility] Last Admin: 09/12/21 06:37 Dose: 40 mg Polyethylene Glycol (Polyethylene Glycol 3350 17 Gm Packet) 17 gm PO DAILY [facility] Last Admin: 09/12/21 09:13 Dose: 17 gm Potassium Chloride (Potassium Chloride 20 Meq Tablet) 20 meq PO ONCE ONE Stop: 09/12/21 12:37 Prednisone (Prednisone 10 Mg Tablet) 15 mg PO DAILYWM [facility] Stop: 09/13/21 09:00 Last Admin: 09/12/21 09:15 Dose: 15 mg Senna (Senna 8.6 Mg Tablet) 8.6 - 17.2 mg PO DAILY [facility] Last Admin: 09/12/21 09:14 Dose: 8.6 mg Sodium Chloride (Sodium Chloride Flush 0.9% 10 Ml Syringe) 10 ml IVP 0100,0900,1700 [facility] Last Admin: 09/12/21 09:16 Dose: 10 ml Sodium Chloride (Sodium Chloride Flush 0.9% 10 Ml Syringe) 20 ml IVP PRN PRN PRN Reason: After Blood Draw Last Admin: 09/04/21 11:57 Dose: 30 ml Trazodone HCl (Trazodone 50 Mg Tablet) 50 mg PO QPM [facility] Last Admin: 09/11/21 20:24 Dose: 50 mg Omeprazole 40 mg PO DAILY 03/06/13 Aspirin [Aspir-Shannen] 325 mg PO DAILY 01/17/14 Atorvastatin Calcium 40 mg PO QPM 04/22/19 Diltiazem HCl [Diltiazem ER] 180 mg PO DAILY 04/22/19 Gabapentin [Neurontin] 100 mg PO QPM 04/22/19 Ipratropium/Albuterol [Duoneb] 3 ml INH Q6H 04/22/19 Furosemide 80 mg PO BID 04/24/19 Fluticasone/Salmeterol [Advair 500-50 Diskus] 1 each INH BID 05/31/19 Insulin Glargine [Lantus Solostar] 0 - 58 unit IM DAILY 10/09/20 Ferrous Gluconate 324 mg PO .[id number] 08/19/21 Losartan [Cozaar] 50 mg PO DAILY 08/19/21 Potassium Chloride [K-Dur] 20 meq PO BID 08/19/21 metFORMIN [Glucophage] 1,000 mg PO DAILY 08/19/21
[2021-09-12] MEDS: ATORVASTATIN 40 MG TABLET PO SCH (21:13)
[2021-09-12] MEDS: GABAPENTIN 100 MG CAPSULE PO SCH (21:13)
[2021-09-12] MEDS: traZODone 50 MG TABLET PO SCH (21:13)
[2021-09-13 05:35] LABS: BASOPHILS % (AUTO) 0.4 %; EOSINOPHILS # (AUTO) 0.1 10^3/uL (0.0-0.7); EOSINOPHILS % (AUTO) 1.5 %; HCT - HEMATOCRIT 32.1 % (42.0-52.0); HGB - HEMOGLOBIN 9.3 g/dL (14.0-18.0); LYMPHOCYTES # (AUTO) 1.4 10^3/uL (1.5-3.5); LYMPHOCYTES % (AUTO) 26.7 %; MEAN CORPUSCULAR HEMOGLOBIN 27.6 pg (27.0-31.0); MEAN CORPUSCULAR VOLUME 95.3 fL (80.0-94.0); MEAN PLATELET VOLUME 9.3 fL (7.4-11.4); MONOCYTES # (AUTO) 0.6 10^3/uL (0.0-1.0); MONOCYTES % (AUTO) 10.4 %; NEUTROPHILS # (AUTO) 3.3 10^3/uL (1.5-6.6); NEUTROPHILS % (AUTO) 60.3 %; PLT - PLATELET COUNT 242 10^3/uL (130-450); RED BLOOD COUNT 3.37 10^6/uL (4.70-6.10); RED CELL DISTRIBUTION WIDTH 18.2 % (12.0-15.0); WHITE BLOOD COUNT 5.4 x10^3/uL (4.8-10.8)
[2021-09-13 05:45] LABS: CALCIUM 8.2 mg/dL (8.5-10.3); POTASSIUM 3.5 mmol/L (3.5-5.0)
[2021-09-13] MEDS: PANTOPRAZOLE 40 MG TABLET PO SCH (06:17)
[2021-09-13] MEDS: SODIUM CHLORIDE FLUSH 0.9% 10 ML SYRINGE IVP SCH ×3 (06:17→17:05)
[2021-09-13] MEDS: BUDESONIDE 0.5 MG/2 ML NEB INH SCH ×2 (07:26→20:08)
[2021-09-13] MEDS: ALBUTEROL NEB 2.5 MG/3 ML INH PRN ×2 (07:28→20:08)
[2021-09-13] MEDS: INSULIN ASPART 300 UNIT/3 ML PEN SUBQ SCH ×4 (08:44→21:01)
[2021-09-13] MEDS: CHOLECALCIFEROL 25 MCG TABLET PO SCH (09:01)
[2021-09-13] MEDS: ACETAMINOPHEN 325 MG TABLET PO PRN ×2 (09:01→21:00)
[2021-09-13] MEDS: HYDROmorphone 2 MG TABLET PO PRN (09:01)
[2021-09-13] MEDS: ENOXAPARIN 40 MG/0.4 ML SYRINGE SUBQ SCH (09:01)
[2021-09-13] MEDS: DOCUSATE SODIUM 250 MG CAPSULE PO SCH (09:02)
[2021-09-13] MEDS: FERROUS GLUCONATE 324 MG TABLET PO SCH (09:02)
[2021-09-13] MEDS: MULTIVITAMIN W/MINERALS TABLET PO SCH (09:02)
[2021-09-13] MEDS: predniSONE 10 MG TABLET PO SCH (09:02)
[2021-09-13] MEDS: SENNA 8.6 MG TABLET PO SCH (09:02)
[2021-09-13] MEDS: ASPIRIN EC 325 MG TABLET PO SCH (09:02)
[2021-09-13] MEDS: diltiaZEM CD 180 MG CAPSULE PO SCH (09:02)
[2021-09-13] MEDS: INSULIN GLARGINE 300 UNIT/3 ML PEN SUBQ SCH (09:10)
[2021-09-13] MEDS: polyethylene glycoL 3350 17 GM PACKET PO SCH (09:11)
[2021-09-13] MEDS ORDERED: HYDROcod/ACETAM 10 MG/325 MG TABLET PO PRN (11:51)
--- NOTE | 2021-09-13 14:02 | PROVIDER PROGRESS NOTE ---
Assessment/Plan - Problem List (1) Generalized weakness Assessment/Plan: 09/13 pt presented generalized weakness. pt was evaluated and treated by PT/OT, he gradually got some improved. 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 at this point, he has not safety d/c charge plan on today. we will consult with social studies teacher to have safely d/c planing, and hopefully we can d/c pt on tomorrow. order home health PT/OT/RN/home health Aide, and social studies teacher consult (2) Chronic respiratory failure with hypoxia Assessment/Plan: 09/13 stable, pt has no acute respiratory distress. pt has advance COPD with home O2 dependent. pt tolerated his new non-invasive ventilator well. 09/12 pt has 95% O2 sat on 3 liter of O2, stable, no acute respiratory distress. he feel great, happy to have [place] off. pt has progress with PT/OT and pt is ready for SNF. social studies teacher is consult for Disposition planning 09/11 pt report he feel great, has no complaints. he tolerated new non-invasive ventilator well. he has stable 97% O2 sat on 3 liter of O2 now. Consult with social work for disposition planning, planning patient to be discharged to SNF 09/10 stable. pt had a new noninvasive ventilator BiPAP on last night, he tolerate very well for the new machine, he had a good sleep on last night. continue consult with social studies teacher to plan d/c to SNF 09/09 acute phrase is resolved. pt has no acute respiratory distress, he had 96% on 3 lpm of O2. it is likely caused by combination of her obesity respiratory syndrome, severe COPD, Covid 19 infection, OEMRO and physical deconditioning. pt is pending for machine of non-invasive ventilation for his d/c plan. (3) Pneumonia due to COVID-19 virus resolved. pt has no acute respiratory distress. He has now completed Remdesivir, Decadron and a course of IV antibiotics. (4) Severe COPD pt has hx of severe COPD and heavy smoker in the past. He was not on home O2 before this admission. He has been on Prednisone 20 mg daily orally once he has finished a 10 day course of Decadron. We will plan to taper the Prednisone very slowly, over many weeks. Today is day #1 of prednisone 15 mg for a week, and should be tapered by 5 mg every week. We started him on inhaled Budesonide and Singulair and continue the inhaled albuterol nebulizer. There is no change today. (5) Hypernatremia resolved resolved (6) Skin tear on buttocks 09/13 continue skin wound care, order home health RN for skin care, pt may followup with [facility] [place] care as out-pt. pt has scattered open wounds within the gluteal cleft with blanching, pink non- granulating tissue. 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 (9) Sleep apnea on CPAP pt has hx of sleep apnea, his CPAP was recalled but did not be replaced by the company. plan: hopefully pt would have noninvasive ventilator on today and we will then put that on him by RT (10) Iron deficiency anemia Impression: Hemoglobin is stable. We have resumed home oral iron. (11) Gram-positive bacteremia Impression: Resolved. This is felt to be contaminant. Repeat cultures have been negative to date and the other set was negative. Antibiotics have been discontinued. (12) Hypotension Impression: Resolved, Levophed was turned off (13) Accelerated junctional rhythm Resolved. Possibly due to COVID heart We will continue to monitor his rhythm on telemetry. 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 continue PT/OT, continue treatment of underling medical issues. - Current Meds Current Meds: Current Medications Generic Name Dose Route Start Last Admin Trade Name Freq PRN Reason Stop Dose Admin Acetaminophen 650 mg 09/04/21 09:45 09/13/21 09:01 Acetaminophen 325 Mg Tablet PO 650 mg Q4HR PRN Administration Pain or Fever > 38C (100.4F) Albuterol 2.5 mg 08/19/21 11:45 09/13/21 07:28 Albuterol Neb 2.5 Mg/3 Ml INH 2.5 mg Q4HR PRN Administration Wheezing Aspirin 325 mg 08/29/21 09:00 09/13/21 09:02 Aspirin Ec 325 Mg Tablet PO 325 mg DAILY DINESH Administration Atorvastatin Calcium 40 mg 08/19/21 21:00 09/12/21 21:13 Atorvastatin 40 Mg Tablet PO 40 mg QPM DINESH Administration Budesonide 0.5 mg 08/28/21 19:00 09/13/21 07:26 Budesonide 0.5 Mg/2 Ml Neb INH 0.5 mg RTBID DINESH Administration Chlorhexidine Gluconate 15 ml 08/31/21 09:34 09/05/21 10:38 Chlorhexidine Gluconate 15 Ml Udc PO 15 ml BID PRN Administration ORAL CARE Cholecalciferol 50 mcg 08/21/21 09:00 09/13/21 09:01 Cholecalciferol 25 Mcg Tablet PO 50 mcg DAILY DINESH Administration Diltiazem HCl 180 mg 09/03/21 11:00 09/13/21 09:02 Diltiazem Cd 180 Mg Capsule PO 180 mg DAILY DINESH Administration Docusate Sodium 250 - 500 mg 08/26/21 09:00 09/13/21 09:02 Docusate Sodium 250 Mg Capsule PO 250 mg DAILY DINESH Administration Enoxaparin Sodium 40 mg 08/27/21 09:00 09/13/21 09:01 Enoxaparin 40 Mg/0.4 Ml Syringe SUBQ 40 mg DAILY DINESH Administration Ferrous Gluconate 324 mg 09/02/21 08:00 09/13/21 09:02 Ferrous Gluconate 324 Mg Tablet PO 324 mg DAILYWM DINESH Administration Gabapentin 100 mg 08/31/21 21:00 09/12/21 21:13 Gabapentin 100 Mg Capsule PO 100 mg QPM DINESH Administration Dextrose 1,000 mls @ 0 mls/hr 09/05/21 02:00 09/09/21 16:17 D5w IV Infused .Q0M DINESH Infusion TKO Insulin Aspart 2 - 10 unit 09/08/21 12:00 09/13/21 08:44 Insulin Aspart 300 Unit/3 Ml Pen SUBQ Not Given 0800,1200,1700,2100 [facility] Protocol Insulin Glargine 22 unit 09/13/21 09:00 09/13/21 09:10 Insulin Glargine 300 Unit/3 Ml Pen SUBQ 22 unit DAILY DINESH Administration Lidocaine 1 patch 08/29/21 14:54 09/07/21 16:38 Lidocaine Patch 5% TOP 1 patch DAILY PRN Administration PAIN Mineral Oil 1 applic 08/30/21 11:01 09/04/21 11:58 Min Oil/Dimethicon/Coconut Oil 92 Gm Tube TOP 1 applic PRN PRN Administration Skin Care Multi-Ingredient Ointment 1 applic 08/22/21 21:41 09/09/21 17:39 Zinc Oxide 20% Oint 30 Gm Tube TOP 1 applic PRN PRN Administration Skin Care Multivitamins/Minerals 1 tab 09/05/21 09:00 09/13/21 09:02 Multivitamin W/Minerals Tablet PO 1 tab DAILYWM DINESH Administration Pantoprazole Sodium 40 mg 08/31/21 07:00 09/13/21 06:17 Pantoprazole 40 Mg Tablet PO 40 mg QDAC DINESH Administration Polyethylene Glycol 17 gm 08/22/21 09:00 09/13/21 09:11 Polyethylene Glycol 3350 17 Gm Packet PO 17 gm DAILY DINESH Administration Senna 8.6 - 17.2 mg 08/26/21 09:00 09/13/21 09:02 Senna 8.6 Mg Tablet PO 8.6 mg DAILY DINESH Administration Sodium Chloride 10 ml 08/19/21 17:00 09/13/21 09:03 Sodium Chloride Flush 0.9% 10 Ml Syringe IVP 10 ml 0100,0900,1700 DINESH Administration Sodium Chloride 20 ml 08/22/21 04:43 09/04/21 11:57 Sodium Chloride Flush 0.9% 10 Ml Syringe IVP 30 ml PRN PRN Administration After Blood Draw Trazodone HCl 50 mg 08/31/21 21:00 09/12/21 21:13 Trazodone 50 Mg Tablet PO 50 mg QPM DINESH Administration - Lab Result Fish Bone Diagrams: 09/13/21 05:04 09/13/21 05:04 - Additional Planning My Orders: My Active Orders 09/13/21 Home Health Referral [CONS] Routine 09/13/21 09:00 Insulin Glargine [Lantus Solostar] 22 unit SUBQ DAILY 09/13/21 11:51 HYDROcodone/ACET 10/325 [[place] 10 mg/325 mg] 1 tab PO Q4HR PRN 09/14/21 05:00 BMP - BASIC METABOLIC PANEL [CHEM] DAILYLAB CBC - COMP BLD CT W/AUTO DIFF [HEME] DAILYLAB 09/15/21 05:00 BMP - BASIC METABOLIC PANEL [CHEM] DAILYLAB 09/16/21 05:00 BMP - BASIC METABOLIC PANEL [CHEM] DAILYLAB 09/17/21 05:00 BMP - BASIC METABOLIC PANEL [CHEM] DAILYLAB 09/18/21 05:00 BMP - BASIC METABOLIC PANEL [CHEM] DAILYLAB Subjective - Subjective Patient Reports: Resting Comfortably Objective Vital Signs: Vital Signs - 24 hr 09/12/21 09/12/21 09/13/21 16:13 19:14 00:00 Temperature 37.0 C 36.8 C Heart Rate 82 Heart Rate [ 103 H Monitoring electrodes] Heart Rate [ 77 Radial] Respiratory 18 20 20 Rate Blood Pressure 142/62 H 164/80 H [Right Radial artery] O2 Saturation 94 97 09/13/21 09/13/21 07:34 08:15 Temperature 36.8 C Heart Rate 102 H Heart Rate [ Monitoring electrodes] Heart Rate [ 100 Radial] Respiratory 18 16 Rate Blood Pressure 141/64 H [Right Radial artery] O2 Saturation 100 Oxygen O2 Source Nasal cannula I&O (Last 24 Hrs): Intake and Output Totals x24h 09/11/21 09/12/21 09/13/21 23:59 23:59 23:59 Intake Total 1800 2270 550 Output Total 1300 305 175 Balance 500 1965 375 General: Alert, Oriented x3, Cooperative, No acute distress HEENT: Atraumatic Neck: Supple Lymphatic: no adenopathy Neuro: Alert, Non Focal, Oriented Times 3 Cardiovascular: Regular rate, Normal S1, Normal S2 Respiratory: Chest non-tender, No respiratory distress Abdomen: Normal bowel sounds, Soft Extremities: Normal pulses Comments/Notes: skin tear, and erythema with stage II pressure ulcer located at bilateral but tock area - Results Results: Laboratory Results WBC 5.4 x10^3/uL (4.8-10.8) 09/13/21 05:04 RBC 3.37 10^6/uL (4.70-6.10) L 09/13/21 05:04 Hgb 9.3 g/dL (14.0-18.0) L 09/13/21 05:04 Hct 32.1 % (42.0-52.0) L 09/13/21 05:04 MCV 95.3 fL (80.0-94.0) H 09/13/21 05:04 MCH 27.6 pg (27.0-31.0) 09/13/21 05:04 MCHC 29.0 g/dL (32.0-36.0) L 09/13/21 05:04 RDW 18.2 % (12.0-15.0) H 09/13/21 05:04 Plt Count 242 10^3/uL (130-450) 09/13/21 05:04 MPV 9.3 fL (7.4-11.4) 09/13/21 05:04 Neut # (Auto) 3.3 10^3/uL (1.5-6.6) 09/13/21 05:04 Lymph # (Auto) 1.4 10^3/uL (1.5-3.5) L 09/13/21 05:04 [place] # (Auto) 0.6 10^3/uL (0.0-1.0) 09/13/21 05:04 Eos # (Auto) 0.1 10^3/uL (0.0-0.7) 09/13/21 05:04 Baso # (Auto) 0.0 10^3/uL (0.0-0.1) 09/13/21 05:04 Absolute Nucleated RBC 0.00 x10^3/uL 09/13/21 05:04 Total Counted 100 08/29/21 05:45 Band Neuts % (Manual) Not Reportable 08/31/21 05:35 Abnorm Lymph % (Manual) Not Reportable 08/31/21 05:35 Metamyelocytes % 1 % (-0) H 08/27/21 04:45 Myelocytes % 1 % (-0) H 08/27/21 04:45 Nucleated RBC % 0.0 /100WBC 09/13/21 05:04 Neutrophils # (Manual) Not Reportable 08/31/21 05:35 Lymphocytes # (Manual) Not Reportable 08/31/21 05:35 Monocytes # (Manual) Not Reportable 08/31/21 05:35 Eosinophils # (Manual) Not Reportable 08/31/21 05:35 Basophils # (Manual) Not Reportable 08/31/21 05:35 Nucleated RBCs 1 % 08/27/21 04:45 Differential Comment MANUAL=AUTO DIFF 08/31/21 05:35 Manual Slide Review Indicated 09/10/21 05:10 WBC Morphology NORMAL APPEARANCE (NORMAL) 09/10/21 05:10 Platelet Estimate NORMAL (130-450,000) (NORMAL) 09/10/21 05:10 Platelet Morphology NORMAL APPEARANCE (NORMAL) 09/10/21 05:10 RBC Morph Micro Appear 1+ ANISOCYTOSIS (NORMAL) 1+ HYPOCHROMASIA (NORMAL) 1+ POLYCHROMASIA (NORMAL) 09/10/21 05:10 RBC Morph Micro Appear 1+ ANISOCYTOSIS (NORMAL) 1+ HYPOCHROMASIA (NORMAL) 1+ POLYCHROMASIA (NORMAL) 09/10/21 05:10 RBC Morph Micro Appear 1+ ANISOCYTOSIS (NORMAL) 1+ HYPOCHROMASIA (NORMAL) 1+ POLYCHROMASIA (NORMAL) 09/10/21 05:10 PT 15.3 secs (9.9-12.6) H 08/19/21 13:44 INR 1.4 (0.8-1.2) H 08/19/21 13:44 D-Dimer 527.1 ng/mL (200.0-255.0) H 08/22/21 04:45 Bld Gas Analysis Time 0523 08/29/21 05:19 Sample Site RIGHT RADIAL 08/29/21 05:19 ABG pH 7.39 (7.35-7.45) 08/29/21 05:19 ABG pCO2 52 mmHg (34-45) H 08/29/21 05:19 ABG pO2 77 mmHg (80-100) L 08/29/21 05:19 ABG HCO3 30.5 mmol/L (22.0-26.0) H 08/29/21 05:19 ABG Total CO2 32.1 MMOL/L (21.0-29.0) H 08/29/21 05:19 ABG O2 Saturation 94 % (94-98) 08/29/21 05:19 ABG Base Excess 4.7 mmol/L (-2.0-3.0) H 08/29/21 05:19 Endy Test POSITIVE 08/29/21 05:19 VBG pH 7.399 (7.31-7.41) 09/05/21 04:51 Ionized Calcium 1.05 mmol/L (1.15-1.33) L 09/05/21 04:51 Respiration Rate 10 b/min 08/29/21 05:19 O2 Delivery Device BiPAP 08/29/21 05:19 Vent Mode ASSIST/CONTROL 08/25/21 13:17 FiO2 50.00 08/29/21 05:19 Tidal Volume 500 mL 08/25/21 13:17 PEEP 7 cmH2O 08/25/21 13:17 EPAP 8 cmH2O 08/29/21 05:19 IPAP 16 cmH2O 08/29/21 05:19 Sodium 141 mmol/L (135-145) 09/13/21 05:04 Potassium 3.5 mmol/L (3.5-5.0) 09/13/21 05:04 Chloride 104 mmol/L (101-111) 09/13/21 05:04 Carbon Dioxide 28 mmol/L (21-32) 09/13/21 05:04 Anion Gap 9.0 (6-13) 09/13/21 05:04 BUN 11 mg/dL (6-20) 09/13/21 05:04 Creatinine 1.0 mg/dL (0.6-1.2) 09/13/21 05:04 Estimated GFR (MDRD) 73 (>89) L 09/13/21 05:04 Glucose 90 mg/dL (70-100) 09/13/21 05:04 POC Whole Bld Glucose 128 mg/dL (70 - 100) H 09/13/21 11:59 Estimat Average Glucose 146 mg/dL (70-100) H 09/09/21 05:20 Hemoglobin A1c % 6.7 % (4.27-6.07) H 09/09/21 05:20 Lactic Acid 1.3 mmol/L (0.5-2.2) 08/19/21 10:05 Calcium 8.2 mg/dL (8.5-10.3) L 09/13/21 05:04 Ionized Calcium YES 08/26/21 04:40 Phosphorus 4.2 mg/dL (2.5-4.6) 09/05/21 04:51 Magnesium 2.3 mg/dL (1.7-2.8) 09/05/21 04:51 Total Bilirubin 0.6 mg/dL (0.2-1.0) 08/27/21 04:45 Direct Bilirubin 0.1 mg/dL (0.1-0.5) 08/24/21 04:20 AST 29 IU/L (10-42) 08/27/21 04:45 ALT 24 IU/L (10-60) 08/27/21 04:45 Alkaline Phosphatase 61 IU/L (42-121) 08/27/21 04:45 Troponin I High Sens 11.4 ng/L (2.3-19.7) 08/19/21 10:05 C-Reactive Protein 6.6 mg/dL (0-1.0) H 08/21/21 04:53 B-Natriuretic Peptide 54 pg/mL (5-100) 08/19/21 10:05 Total Protein 6.4 g/dL (6.7-8.2) L 08/27/21 04:45 Albumin 2.6 g/dL (3.2-5.5) L 08/30/21 04:40 Globulin 3.9 g/dL (2.1-4.2) 08/27/21 04:45 Albumin/Globulin Ratio 0.6 (1.0-2.2) L 08/27/21 04:45 Prealbumin 26 mg/dL (18-45) 08/27/21 04:45 25-OH Vitamin D Total 10 ng/mL (30-100) L 08/20/21 13:55 TSH 0.13 uIU/mL (0.34-5.60) L 08/21/21 04:00 Free T4 1.27 ng/dL (0.58-1.64) 08/21/21 04:00 Nasal Adenovirus (PCR) NOT DETECTED 08/19/21 10:15 Nasal B. parapertussis DNA (PCR) NOT DETECTED 08/19/21 10:15 Nasal Coronavir 229E PCR NOT DETECTED 08/19/21 10:15 Nasal Coronavir HKU1 PCR NOT DETECTED 08/19/21 10:15 Nasal Coronavir NL63 PCR NOT DETECTED 08/19/21 10:15 Nasal Coronavir OC43 PCR NOT DETECTED 08/19/21 10:15 Nasal Enterovir/Rhinovir PCR DETECTED A 08/19/21 10:15 Nasal Influenza B PCR NOT DETECTED 08/19/21 10:15 Nasal Influenza A PCR NOT DETECTED 08/19/21 10:15 Nasal Parainfluen 1 PCR NOT DETECTED 08/19/21 10:15 Nasal Parainfluen 2 PCR NOT DETECTED 08/19/21 10:15 Nasal Parainfluen 3 PCR NOT DETECTED 08/19/21 10:15 Nasal Parainfluen 4 PCR NOT DETECTED 08/19/21 10:15 Nasal RSV (PCR) NOT DETECTED 08/19/21 10:15 Nasal Screen MRSA (PCR) NEGATIVE (NEGATIVE) 08/19/21 13:30 Nasal B.pertussis DNA PCR NOT DETECTED 08/19/21 10:15 Nasal C.pneumoniae (PCR) NOT DETECTED 08/19/21 10:15 Richy Human Metapneumo PCR NOT DETECTED 08/19/21 10:15 Nasal M.pneumoniae (PCR) NOT DETECTED 08/19/21 10:15 Nasal SARS-CoV-2 (PCR) DETECTED A 08/19/21 10:15 Ref Lab Test Result Cancelled 08/19/21 10:05 - Procedures Procedures: Procedures ASSISTANCE WITH RESPIRATORY VENTILATION, <24 HRS, CPAP (12/05/15) CATARAC PHACOEMULS/ASPIR (03/29/14) ENDOSC POLYPECTOMY OF LG INTEST (05/12/13) ESOPHAGOGASTRODUODENOSCOPY [EGD] W/CLOSED BIOPSY (05/12/13) INSERT LENS AT CATAR EXT (03/29/14) INSERTION OF INFUSION DEV INTO L FEMOR VEIN, PERC APPROACH (04/22/19) TRANSFUSE NONAUT FROZEN PLASMA IN PERIPH VEIN, PERC (04/22/19) TRANSFUSE NONAUT RED BLOOD CELLS IN CENTRAL VEIN, PERC (04/22/19) ABX Reporting Has patient been on IV antibiotics over the past 48 hours?: No Current Medications - Current Medications Current Medications: Active Medications Acetaminophen (Acetaminophen 325 Mg Tablet) 650 mg PO Q4HR PRN PRN Reason: Pain or Fever > 38C (100.4F) Last Admin: 09/13/21 09:01 Dose: 650 mg Hydrocodone Bitart/Acetaminophen (Hydrocod/Acetam 10 Mg/325 Mg Tablet) 1 tab PO Q4HR PRN PRN Reason: PAIN Albuterol (Albuterol Neb 2.5 Mg/3 Ml) 2.5 mg INH Q4HR PRN PRN Reason: Wheezing Last Admin: 09/13/21 07:28 Dose: 2.5 mg Aspirin (Aspirin Ec 325 Mg Tablet) 325 mg PO DAILY DINESH Last Admin: 09/13/21 09:02 Dose: 325 mg Atorvastatin Calcium (Atorvastatin 40 Mg Tablet) 40 mg PO QPM [facility] Last Admin: 09/12/21 21:13 Dose: 40 mg Budesonide (Budesonide 0.5 Mg/2 Ml Neb) 0.5 mg INH RTBID [facility] Last Admin: 09/13/21 07:26 Dose: 0.5 mg Chlorhexidine Gluconate (Chlorhexidine Gluconate 15 Ml Udc) 15 ml PO BID PRN PRN Reason: ORAL CARE Last Admin: 09/05/21 10:38 Dose: 15 ml Cholecalciferol (Cholecalciferol 25 Mcg Tablet) 50 mcg PO DAILY [facility] Last Admin: 09/13/21 09:01 Dose: 50 mcg Diltiazem HCl (Diltiazem Cd 180 Mg Capsule) 180 mg PO DAILY [facility] Last Admin: 09/13/21 09:02 Dose: 180 mg Docusate Sodium (Docusate Sodium 250 Mg Capsule) 250 - 500 mg PO DAILY [facility] Last Admin: 09/13/21 09:02 Dose: 250 mg Enoxaparin Sodium (Enoxaparin 40 Mg/0.4 Ml Syringe) 40 mg SUBQ DAILY [facility] Last Admin: 09/13/21 09:01 Dose: 40 mg Ferrous Gluconate (Ferrous Gluconate 324 Mg Tablet) 324 mg PO DAILYWM [facility] Last Admin: 09/13/21 09:02 Dose: 324 mg Gabapentin (Gabapentin 100 Mg Capsule) 100 mg PO QPM [facility] Last Admin: 09/12/21 21:13 Dose: 100 mg Dextrose (D5w) 1,000 mls @ 0 mls/hr IV .Q0M [facility] Last Infusion: 09/09/21 16:17 Dose: Infused Insulin Aspart (Insulin Aspart 300 Unit/3 Ml Pen) 2 - 10 unit SUBQ 0800,1200,1700,2100 [facility]; Protocol Last Admin: 09/13/21 12:00 Dose: Not Given Insulin Glargine (Insulin Glargine 300 Unit/3 Ml Pen) 22 unit SUBQ DAILY [facility] Last Admin: 09/13/21 09:10 Dose: 22 unit Lidocaine (Lidocaine Patch 5%) 1 patch TOP DAILY PRN PRN Reason: PAIN Last Admin: 09/07/21 16:38 Dose: 1 patch Mineral Oil (Min Oil/Dimethicon/Coconut Oil 92 Gm Tube) 1 applic TOP PRN PRN PRN Reason: Skin Care Last Admin: 09/04/21 11:58 Dose: 1 applic Multi-Ingredient Ointment (Zinc Oxide 20% Oint 30 Gm Tube) 1 applic TOP PRN PRN PRN Reason: Skin Care Last Admin: 09/09/21 17:39 Dose: 1 applic Multivitamins/Minerals (Multivitamin W/Minerals Tablet) 1 tab PO DAILYWM [facility] Last Admin: 09/13/21 09:02 Dose: 1 tab Ondansetron HCl (Ondansetron Odt 4 Mg Tablet) 4 mg TL Q6HR PRN PRN Reason: Nausea / Vomiting Pantoprazole Sodium (Pantoprazole 40 Mg Tablet) 40 mg PO QDAC [facility] Last Admin: 09/13/21 06:17 Dose: 40 mg Polyethylene Glycol (Polyethylene Glycol 3350 17 Gm Packet) 17 gm PO DAILY [facility] Last Admin: 09/13/21 09:11 Dose: 17 gm Senna (Senna 8.6 Mg Tablet) 8.6 - 17.2 mg PO DAILY [facility] Last Admin: 09/13/21 09:02 Dose: 8.6 mg Sodium Chloride (Sodium Chloride Flush 0.9% 10 Ml Syringe) 10 ml IVP 0100, 0900,1700 [facility] Last Admin: 09/13/21 09:03 Dose: 10 ml Sodium Chloride (Sodium Chloride Flush 0.9% 10 Ml Syringe) 20 ml IVP PRN PRN PRN Reason: After Blood Draw Last Admin: 09/04/21 11:57 Dose: 30 ml Trazodone HCl (Trazodone 50 Mg Tablet) 50 mg PO QPM [facility] Last Admin: 09/12/21 21:13 Dose: 50 mg Omeprazole 40 mg PO DAILY 03/06/13 Aspirin [Aspir-Shannen] 325 mg PO DAILY 01/17/14 Atorvastatin Calcium 40 mg PO QPM 04/22/19 Diltiazem HCl [Diltiazem ER] 180 mg PO DAILY 04/22/19 Gabapentin [Neurontin] 100 mg PO QPM 04/22/19 Ipratropium/Albuterol [Duoneb] 3 ml INH Q6H 04/22/19 Furosemide 80 mg PO BID 04/24/19 Fluticasone/Salmeterol [Advair 500-50 Diskus] 1 each INH BID 05/31/19 Insulin Glargine [Lantus Solostar] 0 - 58 unit IM DAILY 10/09/20 Ferrous Gluconate 324 mg PO .[id number] 08/19/21 Losartan [Cozaar] 50 mg PO DAILY 08/19/21 Potassium Chloride [K-Dur] 20 meq PO BID 08/19/21 metFORMIN [Glucophage] 1,000 mg PO DAILY 08/19/21
[2021-09-13] MEDS: ATORVASTATIN 40 MG TABLET PO SCH (21:00)
[2021-09-13] MEDS: GABAPENTIN 100 MG CAPSULE PO SCH (21:01)
[2021-09-13] MEDS: traZODone 50 MG TABLET PO SCH (21:01)
[2021-09-14] MEDS: SODIUM CHLORIDE FLUSH 0.9% 10 ML SYRINGE IVP SCH ×2 (02:45→08:23)
[2021-09-14 05:25] LABS: CALCIUM 8.1 mg/dL (8.5-10.3); POTASSIUM 3.5 mmol/L (3.5-5.0)
[2021-09-14 05:56] LABS: BASOPHILS % (AUTO) 0.4 %; EOSINOPHILS # (AUTO) 0.1 10^3/uL (0.0-0.7); EOSINOPHILS % (AUTO) 1.8 %; HCT - HEMATOCRIT 32.2 % (42.0-52.0); HGB - HEMOGLOBIN 9.5 g/dL (14.0-18.0); LYMPHOCYTES # (AUTO) 1.3 10^3/uL (1.5-3.5); LYMPHOCYTES % (AUTO) 23.7 %; MEAN CORPUSCULAR HEMOGLOBIN 28.3 pg (27.0-31.0); MEAN CORPUSCULAR HGB CONC 29.5 g/dL (32.0-36.0); MEAN CORPUSCULAR VOLUME 95.8 fL (80.0-94.0); MEAN PLATELET VOLUME 9.6 fL (7.4-11.4); MONOCYTES # (AUTO) 0.5 10^3/uL (0.0-1.0); MONOCYTES % (AUTO) 9.8 %; NEUTROPHILS # (AUTO) 3.5 10^3/uL (1.5-6.6); NEUTROPHILS % (AUTO) 63.8 %; PLT - PLATELET COUNT 285 10^3/uL (130-450); RED BLOOD COUNT 3.36 10^6/uL (4.70-6.10); RED CELL DISTRIBUTION WIDTH 18.3 % (12.0-15.0); WHITE BLOOD COUNT 5.5 x10^3/uL (4.8-10.8)
[2021-09-14] MEDS: PANTOPRAZOLE 40 MG TABLET PO SCH (06:06)
[2021-09-14] MEDS: BUDESONIDE 0.5 MG/2 ML NEB INH SCH (07:28)
[2021-09-14] MEDS: ALBUTEROL NEB 2.5 MG/3 ML INH PRN (07:28)
[2021-09-14 07:38] VITALS: BP 149/76
[2021-09-14] MEDS: INSULIN ASPART 300 UNIT/3 ML PEN SUBQ SCH ×2 (08:02→12:03)
[2021-09-14] MEDS: CHOLECALCIFEROL 25 MCG TABLET PO SCH (08:21)
[2021-09-14] MEDS: ENOXAPARIN 40 MG/0.4 ML SYRINGE SUBQ SCH (08:21)
[2021-09-14] MEDS: diltiaZEM CD 180 MG CAPSULE PO SCH (08:21)
[2021-09-14] MEDS: ASPIRIN EC 325 MG TABLET PO SCH (08:21)
[2021-09-14] MEDS: DOCUSATE SODIUM 250 MG CAPSULE PO SCH (08:21)
[2021-09-14] MEDS: FERROUS GLUCONATE 324 MG TABLET PO SCH (08:22)
[2021-09-14] MEDS: SENNA 8.6 MG TABLET PO SCH (08:22)
[2021-09-14] MEDS: MULTIVITAMIN W/MINERALS TABLET PO SCH (08:22)
[2021-09-14] MEDS: polyethylene glycoL 3350 17 GM PACKET PO SCH (08:22)
[2021-09-14] MEDS: INSULIN GLARGINE 300 UNIT/3 ML PEN SUBQ SCH (08:24)
--- NOTE | 2021-09-14 10:51 | Discharge Plan ---
Discharge Plan Problem Reviewed?: Yes Disposition: Home Health Service Condition: Stable Prescriptions: traZODone [Desyrel] 50 mg PO QPM PRN #30 tablet PRN Reason: Insomnia Albuterol Sulfate [Proair Hfa Inhaler] 1 puffs INH Q4H PRN #1 inhaler PRN Reason: Shortness Of Air/Wheezing Multivitamin W/Minerals [Theragran M] 1 tab PO DAILYWM #30 tablet Diet: Diabetic Activity Restrictions: Activity as Tolerated Shower Restrictions: No (fall precaution) Instruction Topics: Furosemide tablets, Diabetes Filler Room Attendant Complications, Hypoglycemia, Diabetes Type 2 Coping, COPD, Kidney Function, Kidney Failure Tx Options, COVID-19 [facility], COVID-19 [facility] Department Statement Health Concerns: COPD, home oxygen and noninvasive ventilator. diabetes management, skin tear/pressure ulcer management, acute kidney injury Plan of Treatment: You are prescribed Albuterol Inhaler, and resume your home medication for your COPD treatment, and followup with RT instruction for home oxygen usage and new noninvasive ventilator usage. Your A1C is 6.7, resume your home medication and insulin, as we discussed diabetes management, and followup with your PCP for diabetes management as well, home health RN is arranged to help you as well. Home health RN, PT/OT and home health Aide are arranged for you. Home health RN help you manage your skin and pressure ulcer. you may followup with your PCP and [facility] [place] care as well. Your ECHO study reveal your heart function at good arrange. You were found to have significant kidney injury at the admission. we hold your Lasix at hospital now. You may followup with your PCP continue management. Care Goals: Stabilization and improvement of your medical conditions Assessment: Discussed the care plan in detail with you, answered to your questions, you understood Additional Instructions or Follow Up instructions: You may follow-up with your PCP in 1 week and followup with Resource Specialist Teacher as outpatient. should your symptoms return or worse, you may present to the ER or call 911 for help. Follow-Up Care: Home Health - RN, Home Health - PT, Home Health - OT, [facility] - [place]ound/Ostomy, [facility] - Diabetes Ed No Smoking: If you smoke, Please STOP! Call for help. Follow-up with: Luly Sosa DO [Primary Care Provider] -
--- NOTE | 2021-09-14 11:15 | DISCHARGE SUMMARY ---
Discharge Summary Admit Date: 08/19/21 Discharge Date: 09/14/21 Discharging Provider: Paras Merrill Primary Care Provider: Dr. Rachel Sosa Condition at Discharge: Stable Discharge Disposition: Home Health Service Discharge Facility Name: home - DIAGNOSES Discharge Diagnoses with Status of Each Condition: (1) Generalized weakness Improved, home health PT, OT, RN, home health aide are arranged for patient (2) Chronic respiratory failure with hypoxia Stable. Patient has no acute respiratory distress. Patient is home oxygen dependent, Resume patient home medications and home oxygen. (3) Pneumonia due to COVID-19 virus resolved. Resolved, pt has no acute respiratory distress. pt completed Remdesivir, Decadron, lovenox and a course of IV antibiotics treatment. (4) advance COPD Patient has a history of advanced COPD and home oxygen dependent. Resume patient home medications including home oxygen, prescribed albuterol inhaler as needed (5) Hypernatremia resolved resolved (6) Skin tear on buttocks stable, order home health RN for skin care, pt may followup with his PCP and [facility] clinic wound care as out-pt. (6) Acute kidney injury superimposed on CKD resolved (7) Insulin dependent diabetes mellitus A1C is 6.7, continue Home medications. Discussed with patient about diabetic management, answered his questions, patient understood (8) Morbid Obesity (BMI 50-59) As per Hx. Advised patient safely loss of weight (9) Sleep apnea on CPAP pt has hx of sleep apnea, his CPAP was recalled but did not be replaced by the company. Patient had a new non-invasive ventilator machine, patient tolerated the machine very well, patient may follow-up with [employer] as out-pt. (10) Iron deficiency anemia stable, resumed home oral iron. (11) Gram-positive bacteremia Resolved. Repeat blood culture is negative for bacteremia, it was likely contaminated in the blood culture (12) Hypotension Resolved (13) Accelerated junctional rhythm Resolved. Possibly due to COVID heart (14) Hyperkalemia Resolved (15)physical deconditioning pt present severe physical deconditioning with mortality obesity, and advance COPD on O2 dependent, recently Covid 19 infection. home health PT, OT, RN, home health aide are arranged for patient - HPI History of Present Illness: refer from Dr. Moulton's HPI on 08/19/21 This is a 76-year-old male with a past medical history significant for paroxysmal atrial fibrillation, COPD on 2 L of oxygen, CKD, OMERO on CPAP who presented to our emergency room this morning complaining of shortness of breath. History is obtained from the emergency department physician as the patient is intubated and I am unable to reach his as there was no answer when I called. The patient was reportedly diagnosed with Covid about 2 weeks ago. He has been feeling short of breath on and off and EMS was called this morning. Reportedly his oxygen saturations were in the 50s upon their arrival. The emergency department physician did speak with the patient's and she stated he was diagnosed weeks ago and he had a negative test about 2 days ago. She told him that he is a full code. In the emergency department, he was still hypoxic on nonrebreather. He was then placed on BiPAP but was still in quite a bit of distress and so he was intubated. Chest x-ray suggested CHF. His labs revealed a white count of 12,000. D-dimer was over 1000. His creatinine is elevated at 2.5 compared to his baseline of 1.5. He was given ceftriaxone, azithromycin, Solu-Medrol and 150 mg of Lovenox. Medicine was then consulted for admission. I did call his to try and obtain further information to discuss CODE STATUS but there was no answer. He will be made a full code per the discussion the emergency department physician had with the patient's . I will attempt to call her again. - ALLERGIES Allergies/Adverse Reactions: Allergies Allergy/AdvReac Type Severity Reaction Status Date / Time ranitidine HCl * Allergy Unknown Rash Verified 08/19/21 09:33 [From Zantac] - MEDICATIONS Home Medications: Ambulatory Orders Medication Instructions Recorded Confirmed RX: Omeprazole 40 mg PO DAILY 03/06/13 08/19/21 RX: Aspirin [Aspir-Shannen] 325 mg PO DAILY 01/17/14 08/19/21 RX: Atorvastatin Calcium 40 mg PO QPM 04/22/19 08/19/21 RX: Diltiazem HCl [Diltiazem 24Hr 180 mg PO DAILY 04/22/19 08/19/21 ER] RX: Gabapentin [Neurontin] 100 mg PO QPM 04/22/19 08/19/21 RX: Ipratropium/Albuterol [Duoneb] 3 ml INH Q6H 04/22/19 08/19/21 RX: Fluticasone/Salmeterol [Advair 1 each INH BID 05/31/19 08/19/21 500-50 Diskus] RX: Insulin Glargine [Lantus 0 - 58 unit IM DAILY 10/09/20 08/19/21 Solostar] RX: Ferrous Gluconate 324 mg PO .[id number] 08/19/21 08/19/21 RX: Losartan [Cozaar] 50 mg PO DAILY 08/19/21 08/19/21 RX: Potassium Chloride [K-Dur] 20 meq PO BID 08/19/21 08/19/21 RX: metFORMIN [Glucophage] 1,000 mg PO DAILY 08/19/21 08/19/21 RX: Albuterol Sulfate [Proair Hfa 1 puffs INH Q4H PRN #1 inhaler 09/14/21 Inhaler] RX: Multivitamin W/Minerals 1 tab PO DAILYWM #30 tablet 09/14/21 [Theragran M] RX: traZODone [Desyrel] 50 mg PO QPM PRN #30 tablet 09/14/21 - PHYSICAL EXAM AT DISCHARGE General Appearance: positive: No acute distress, Alert. negative: Lethargic Eyes Bilateral: positive: Normal inspection, No lid inflammation ENT: positive: ENT inspection nml, No signs of dehydration. negative: Purulent nasal drainage Neck: positive: Nml inspection, Trachea midline. negative: Tracheal deviation Respiratory: positive: Chest non-tender, No respiratory distress. negative: Wheezes, Rales Cardiovascular: positive: Regular rate & rhythm. negative: Tachycardia, Bradycardia, Systolic murmur Peripheral Pulses: positive: 2+ Abdomen: positive: Non-tender, Nml bowel sounds. negative: Tenderness Back: positive: Nml inspection Skin: positive: Warm, Dry, Other (skin tear, and erythema with stage II pressure ulcer located at bilateral buttock area, no infection indicated.). negative: Cyanosis Extremities: positive: Non-tender, Nml appearance Neurologic/Psychiatric: positive: Oriented x3, Motor nml, Sensation nml. negative: Weakness, Sensory loss, Facial droop, Slurred/abnml speech, Depressed mood/affect - LABS Result Diagrams: 09/14/21 04:30 09/14/21 04:30 - FOLLOW UP Follow Up: You are prescribed Albuterol Inhaler, and resume your home medication for your COPD treatment, and followup with RT instruction for home oxygen usage and new noninvasive ventilator usage. Your A1C is 6.7, resume your home medication and insulin, as we discussed diabetes management, and followup with your PCP for diabetes management as well, home health RN is arranged to help you as well. Home health RN, PT/OT and home health Aide are arranged for you. Home health RN help you manage your skin and pressure ulcer. you may followup with your PCP and [facility] for wound care as well. Your ECHO study reveal your heart function at good arrange. You were found to have significant kidney injury at the admission. we hold your Lasix at hospital. You may followup with your PCP continue management. You may follow-up with your PCP in 1 week and followup with [employer] as outpatient. should your symptoms return or worse, you may present to the ER or call 911 for help. - TIME SPENT Time Spent in Discharge (Minutes): 30
== END 2021-09-14 12:53 | disposition home health service (06) | DRG 207 ==
LOC: EDUNIT# → ED 09:23 → ICU 11:45 → MS3 09-05 20:16
PROVIDERS: ADMIT Internal Medicine; ATTEND Nurse Practitioner Gerontology
PROC: 5A1955Z Respiratory Ventilation, Greater than 96 Consecutive Hours (ICD-10-PCS; principal; 2021-08-19)
PROC: 03HY32Z Insertion of Monitoring Device into Upper Artery, Percutaneous Approach (ICD-10-PCS; 2021-08-19)
PROC: 05HN33Z Insertion of Infusion Device into Left Internal Jugular Vein, Percutaneous Approach (ICD-10-PCS; 2021-08-20)
PROC: 5A09557 Assistance with Respiratory Ventilation, Greater than 96 Consecutive Hours, Continuous Positive Airway Pressure (ICD-10-PCS; 2021-08-28)
PROC: 3E0234Z Introduction of Serum, Toxoid and Vaccine into Muscle, Percutaneous Approach (ICD-10-PCS; 2021-09-04)
DX: U07.1 COVID-19 (principal); J12.82 Pneumonia due to coronavirus disease 2019; J44.0 Chronic obstructive pulmonary disease with (acute) lower respiratory infection; J96.11 Chronic respiratory failure with hypoxia; E87.0 Hyperosmolality and hypernatremia; N17.9 Acute kidney failure, unspecified; Z68.43 Body mass index [BMI] 50.0-59.9, adult; I49.2 Junctional premature depolarization; D63.1 Anemia in chronic kidney disease; I12.9 Hypertensive chronic kidney disease with stage 1 through stage 4 chronic kidney disease, or unspecified chronic kidney disease; I48.91 Unspecified atrial fibrillation; G47.30 Sleep apnea, unspecified; N18.9 Chronic kidney disease, unspecified; E11.22 Type 2 diabetes mellitus with diabetic chronic kidney disease; E11.65 Type 2 diabetes mellitus with hyperglycemia; E66.01 Morbid (severe) obesity due to excess calories; Z79.84 Long term (current) use of oral hypoglycemic drugs; E78.00 Pure hypercholesterolemia, unspecified; E87.5 Hyperkalemia; D50.9 Iron deficiency anemia, unspecified; I48.0 Paroxysmal atrial fibrillation; I95.9 Hypotension, unspecified; G47.33 Obstructive sleep apnea (adult) (pediatric); L89.312 Pressure ulcer of right buttock, stage 2; L89.322 Pressure ulcer of left buttock, stage 2; K08.109 Complete loss of teeth, unspecified cause, unspecified class; K21.9 Gastro-esophageal reflux disease without esophagitis; M19.90 Unspecified osteoarthritis, unspecified site; T38.0X5A Adverse effect of glucocorticoids and synthetic analogues, initial encounter; T38.3X6A Underdosing of insulin and oral hypoglycemic [antidiabetic] drugs, initial encounter; S31.801A Laceration without foreign body of unspecified buttock, initial encounter; X58.XXXA Exposure to other specified factors, initial encounter; R45.1 Restlessness and agitation; R53.1 Weakness; R94.31 Abnormal electrocardiogram [ECG] [EKG]; Z23 Encounter for immunization; Z74.01 Bed confinement status; Z79.4 Long term (current) use of insulin; Z79.51 Long term (current) use of inhaled steroids; Z79.82 Long term (current) use of aspirin; Z79.899 Other long term (current) drug therapy; Z87.891 Personal history of nicotine dependence; Z96.1 Presence of intraocular lens; Z98.49 Cataract extraction status, unspecified eye; Z99.81 Dependence on supplemental oxygen
CPT/HCPCS: 31500; 36415; 36556; 36600; 43753; 51702; 71045; 74018; 80048; 80053; 80076; 82040; 82248; 82306; 82310; 82330; 82803; 83036; 83605; 83735; 83880; 84100; 84132; 84134; 84295; 84439; 84443; 84484; 85025; 85379; 85610; 86140; 87040; 87070; 87150; 87205; 87631; 91303; 93005; 93306; 94002; 94003; 94640; 94660; 96374; 97110; 97116; 97163; 97165; 97530; 99291; 99292; A6250; A9270; J1170; J1650; J1815; J3010; J3490; J7040; J7120; J7512; J7626; P9047; 0202U; 81599; 94770

== ENCOUNTER 2021-11-12 09:17 | Outpatient (CLI) | payer MEDICARE ==
[2021-11-12 09:52] LABS: BASOPHILS # (AUTO) 0.1 10^3/uL (0.0-0.1); BASOPHILS % (AUTO) 0.7 %; EOSINOPHILS # (AUTO) 0.1 10^3/uL (0.0-0.7); EOSINOPHILS % (AUTO) 1.4 %; HCT - HEMATOCRIT 32.6 % (42.0-52.0); LYMPHOCYTES # (AUTO) 2.5 10^3/uL (1.5-3.5); LYMPHOCYTES % (AUTO) 28.3 %; MEAN CORPUSCULAR HEMOGLOBIN 25.1 pg (27.0-31.0); MEAN CORPUSCULAR HGB CONC 27.6 g/dL (32.0-36.0); MEAN CORPUSCULAR VOLUME 90.8 fL (80.0-94.0); MEAN PLATELET VOLUME 9.8 fL (7.4-11.4); MONOCYTES # (AUTO) 0.8 10^3/uL (0.0-1.0); MONOCYTES % (AUTO) 8.9 %; NEUTROPHILS # (AUTO) 5.2 10^3/uL (1.5-6.6); NEUTROPHILS % (AUTO) 60.4 %; PLT - PLATELET COUNT 286 10^3/uL (130-450); RED BLOOD COUNT 3.59 10^6/uL (4.70-6.10); RED CELL DISTRIBUTION WIDTH 14.6 % (12.0-15.0); WHITE BLOOD COUNT 8.7 x10^3/uL (4.8-10.8)
[2021-11-12 10:11] LABS: % IRON SATURATION 39 % (20-50); ALBUMIN 3.3 g/dL (3.2-5.5); ALBUMIN/GLOBULIN RATIO 0.7 (1.0-2.2); ALKALINE PHOSPHATASE 102 IU/L (42-121); ALT ALANINE AMINOTRANSFERASE 12 IU/L (10-60); AST ASPARTATE AMINOTRANSFERASE 17 IU/L (10-42); BILIRUBIN,TOTAL 0.5 mg/dL (0.2-1.0); BUN - BLOOD UREA NITROGEN 10 mg/dL (6-20); CALCIUM 8.4 mg/dL (8.5-10.3); CARBON DIOXIDE - CO2 26 mmol/L (21-32); CHLORIDE 100 mmol/L (101-111); CHOL/HDL RATIO 3.3 (<5.0); CHOLESTEROL 131 mg/dL; CREATININE 1.1 mg/dL (0.6-1.2); GFR - MDRD 65 (>89); GLUCOSE 110 mg/dL (70-100); HDL CHOLESTEROL 40 mg/dL; IRON 171 ug/dL (45-182); LDL CHOLESTEROL,CALCULATED 74 mg/dL; LDL/HDL RATIO 1.9 (<3.6); POTASSIUM 3.8 mmol/L (3.5-5.0); SODIUM 137 mmol/L (135-145); TOTAL IRON BINDING CAPACITY 435 ug/dL (250-450); TOTAL PROTEIN 8.2 g/dL (6.7-8.2); TRANSFERRIN 311 mg/dL (180-329); TRIGLYCERIDES 85 mg/dL; VLDL CHOLESTEROL 17 mg/dL
[2021-11-12 10:21] LABS: THYROID STIMULATING HORMONE 2.61 uIU/mL (0.34-5.60)
[2021-11-12 10:27] LABS: FERRITIN 31.3 ng/mL (23.9-336.2)
--- NOTE | 2021-11-12 13:05 | Ultrasound Report ---
PROCEDURE: Head or Neck Soft Tissue INDICATIONS: THYROID NODULE TECHNIQUE: Real time scanning was performed of the neck region of interest, with image documentation . COMPARISON: September 06, 2013. FINDINGS: Right: Thyroid lobe measures 10.8 x 4.7 x 7 x 1 cm, and is heterogeneous in echotexture. Left: Thyroid lobe measures 5.8 x 2.3 x 2.8 cm, and is heterogeneous in echotexture. Isthmus: 1.8 cm Nodule number: 1 Location: Right Size: 10.8 x 4.7 x 7.1 cm; previously measuring 8 x 3.6 x 6.1 cm Composition: Predominantly solid Echogenicity: Hypoechoic Shape: Wider than tall. Margins: Lobulated Echogenic foci: None Total points: 6 ACR TI-RADS category: TR 4: FNA is recommended. Nodule number: 2 Location: Left Size: 1.3 x 1.3 x 1.9 cm Composition: Pericholecystic Echogenicity: Anechoic Shape: Wider than tall. Margins: Smooth Echogenic foci: None Total points: 0 ACR TI-RADS category: TR 1: Benign. IMPRESSION: Suspicious nodule in the right thyroid as detailed above. Consider FNA. Reviewed by: Charles Logan MD on 11/12/2021 1:03 PM PDT Approved by: Charles Logan MD on 11/12/2021 1:03 PM PDT Station ID: [id number]
[2021-11-12 21:36] LABS: ESTIMATED AVERAGE GLUCOSE 97 mg/dL (70-100)
== END 2021-11-12 09:18 | disposition home or self-care (01) ==
LOC: DI 09:17
PROVIDERS: ATTEND Internal Medicine
DX: E04.2 Nontoxic multinodular goiter (principal); D46.9 Myelodysplastic syndrome, unspecified; E11.40 Type 2 diabetes mellitus with diabetic neuropathy, unspecified; E78.2 Mixed hyperlipidemia; I10 Essential (primary) hypertension
CPT/HCPCS: 36415; 80053; 80061; 82043; 82570; 82668; 82728; 83036; 83540; 83721; 84443; 84466; 85025

== ENCOUNTER 2022-01-27 10:44 | Outpatient (CLI) | payer MEDICARE ==
[~2022-01-27 10:44] MED LIST changes: -ALBUTEROL NEB 2.5 MG/3 ML INH ONE; +LIDOCAINE-MPF 1% 10 ML AMP ONE
[2022-01-27] MEDS ORDERED: LIDOCAINE-MPF 1% 10 ML AMP SUBQ ONE (13:06)
--- NOTE | 2022-01-27 13:53 | Ultrasound Report ---
PROCEDURE: FNA Bx w/US Gnd 1st les INDICATIONS: THYROID NODULE TECHNIQUE: The indications, alternatives, benefits, risks, and complications of the procedure were explained to the patient. Written informed consent was obtained and placed in the chart. The area of interest wa s examined sonographically and a site was chosen for ultrasound guided percutaneous sampling. The sk in was prepared and draped in the usual fashion, and anesthetized with 1% lidocaine infiltrated from the skin down to the lesion. Multiple passes were then performed, with contents emptied into an appr [facility] pathology specimen container. A bandage was applied to the area of access at completion of t he study. COMPARISON: 11/12/2021. FINDINGS: Location(s) of lesion(s) sampled: Right thyroid lobe nodule [place]: 25 gauge hypodermic needles. Number of passes: 6 Medications: 1% lidocaine for local anaesthesia. Complications: None. IMPRESSION: Successful ultrasound-guided right thyroid fine needle aspiration, with cytology results pending. Reviewed by: Mauro Duval MD on 01/27/2022 1:51 PM PDT Approved by: Mauro Duval MD on 01/27/2022 1:51 PM PDT Station ID: [id number]
== END 2022-01-27 10:45 | disposition home or self-care (01) ==
LOC: DI 10:44
PROVIDERS: ATTEND Otolaryngology
DX: E04.1 Nontoxic single thyroid nodule (principal)
CPT/HCPCS: 10005

== ENCOUNTER 2022-05-20 12:05 | Outpatient (CLI) | payer MEDICARE ==
[2022-05-20 12:55] LABS: THYROID STIMULATING HORMONE 2.73 uIU/mL (0.34-5.60)
[2022-05-20 13:14] LABS: ESTIMATED AVERAGE GLUCOSE 126 mg/dL (70-100)
== END 2022-05-20 12:06 | disposition home or self-care (01) ==
LOC: LAB 12:05
PROVIDERS: ATTEND Internal Medicine
DX: E11.42 Type 2 diabetes mellitus with diabetic polyneuropathy (principal); D46.9 Myelodysplastic syndrome, unspecified; E04.1 Nontoxic single thyroid nodule
CPT/HCPCS: 36415; 83036; 84443

== ENCOUNTER 2022-08-24 03:52 | Outpatient (CLI) | payer MEDICARE | END 2022-08-24 03:53 | disposition E | LOC: EMS 03:52 ==